=== PATIENT | female | born 1955 | race Caucasian/White ===

== ENCOUNTER → 2016-08-10 | Outpatient (CLI) | payer MEDICARE, OTHER ==
--- NOTE | 2016-08-10 13:49 | XR ---
Right hip HISTORY: Trauma and pain 2 views of the right hip correlated to previous exam October 2011, 30 Oct 2011 Postoperative changes are stable. No acute fracture or dislocation is evident. Old subcapital right f emoral fracture changes are again noted. IMPRESSION: No acute abnormalities evident.
== END | disposition home or self-care (01) ==
LOC: RADXRMAIN 12:00
PROVIDERS: ATTEND Internal Medicine
DX: M25.551 Pain in right hip (principal)
CPT/HCPCS: 73502

== ENCOUNTER → 2016-08-19 | Outpatient (CLI) | payer MEDICARE, OTHER ==
--- NOTE | 2016-08-19 18:55 | CT ---
EXAMINATION TYPE: CT brain wo con DATE OF EXAM: 08/19/2016 6:46 PM COMPARISON: NONE HISTORY: Head trauma years ago. Fall with right sided head injury 1 week ago. Headaches and double vision since. CT DLP: 926.50 mGycm Automated exposure control for dose reduction was used. FINDINGS: There is cerebral cortical atrophy. There is no mass effect nor midline shift. There is no sign of in tracranial hemorrhage. The calvarium is intact. IMPRESSION: Cerebral atrophy. No acute intracranial abnormality.
== END ==
LOC: RADCTMAIN 18:27
PROVIDERS: ATTEND Internal Medicine
DX: G31.9 Degenerative disease of nervous system, unspecified (principal)
CPT/HCPCS: 70450

== ENCOUNTER → 2016-08-25 | Outpatient (CLI) | payer MEDICARE, OTHER ==
--- NOTE | 2016-08-25 16:03 | XR ---
2 view abdomen HISTORY: Abdominal pain, pancreatic CCA 2 views of the abdomen correlated to prior abdomen 31 May 2012 Multiple air-fluid levels are present. Lung bases are clear. No evident pneumoperitoneum. Postop joe ges again noted to the lumbosacral spine and right hip. Vascular calcifications present within the pe lvis. IMPRESSION: Findings may represent ileus, follow-up as indicated should bowel obstruction be suspecte d clinically.
== END | disposition home or self-care (01) ==
LOC: RADXRMAIN 14:44
PROVIDERS: ATTEND Internal Medicine
DX: R10.9 Unspecified abdominal pain (principal)
CPT/HCPCS: 74020

== ENCOUNTER → 2016-09-05 | Outpatient (CLI) | payer MEDICARE, OTHER ==
--- NOTE | 2016-09-05 12:35 | CT ---
EXAMINATION TYPE: CT abdomen pelvis w con DATE OF EXAM: 09/05/2016 12:21 PM COMPARISON: 05/01/2014 HISTORY: Abdomen pain with distension. Histor of multiple bowel surgeries. CT DLP: 411.8 mGycm CONTRAST: CT scan of the abdomen and pelvis is performed with Oral Contrast and with IV Contrast, patient injec cherri with 100 mL of Omnipaque 300. FINDINGS: LUNG BASES-: No visible nodule. No infiltrate. LIVER/GB: No calcified gallstones. No space occupying hepatic lesion. Biliary tree is of normal ca liber. There is evidence of hepatic steatosis. PANCREAS: Atrophic pancreas with prominence of the pancreatic duct at 4.9 mm. No distinct lesion iden tified at this time. SPLEEN: No splenic enlargement. No lesion seen. ADRENALS: No nodule. No thickening. KIDNEYS/BLADDER: No hydronephrosis. No nephrolithiasis. No disctinct renal mass. Urinary bladder g rossly unremarkable. BOWEL: There is dilatation of the colon without definite transition zone. Moderate fecal stasis is no cherri. There is the suggestion of mildly increased focal wall thickening involving the mid transverse c olon seen on axial images 42. Underlying lesion is difficult to exclude. Consider direct visualizatio n. No acute inflammatory process. Small bowel is of normal caliber. GENITAL ORGANS: No gross abnormality. LYMPH NODES: No greater than 1cm abdominal or pelvic lymph nodes are appreciated. AORTA: No significant abnormality. OSSEOUS STRUCTURES: Degenerative changes lumbar spine and postoperative changes of the lumbar spine. OTHER: No significant additional abnormality is seen. IMPRESSION: 1. Moderate fecal stasis with the colonic ileus. 2. There is the suggestion of mildly increased focal wall thickening involving the mid transverse col on seen on axial images 42. Underlying lesion is difficult to exclude. Consider direct visualization.
== END | disposition home or self-care (01) ==
LOC: RADCTMAIN 11:41
PROVIDERS: ATTEND Internal Medicine
DX: K56.69 Other intestinal obstruction (principal); K59.8 Other specified functional intestinal disorders
CPT/HCPCS: 74177; Q9967

== ENCOUNTER → 2016-12-19 | Outpatient (CLI) | payer MEDICARE, OTHER ==
--- NOTE | 2016-12-19 12:00 | BD ---
EXAMINATION TYPE: MG DEXA axial skeleton. DATE OF EXAM: 12/19/2016 COMPARISON: 2014 CLINICAL HISTORY: osteoporosis Height: 5'1 Weight: 132 FRAX RISK QUESTIONS: Alcohol (3 or more units per day): no Family History (Parent hip fracture): no Glucocorticoids (More than 3mos): no (Ex: prednisone, prednisolone, methylprednisolone, dexamethasone, and hydrocortisone). History of Fracture in Adulthood: yes Secondary Osteoporosis: 1. Type 1 Diabetes: no 2. Hyperthyroidism: no 3. Menopause before 45: yes 4. Malnutrition: no 5. Chronic liver disease: no Rheumatoid Arthritis: no Current Tobacco Use: yes RISK FACTORS HISTORY OF: Hip Fracture (Right When: 2010 Surgery to Spine:1975 Hip(right/When: 2010 Family History of Osteoporosis: yes Active: no Postmenopausal woman: Frequent falls: Poor Health: bowel surgery 4 inches of bowel left multiple surgeries MEDICATIONS: : Additional Medications: see list Additional History: bowel cancer, 1987 EXAM MEASUREMENTS: Bone mineral densitometry was performed using the [employer] System. Bone mineral density about the L hip (g/cm2): 0.682 T Score values are as follows: -----L Neck: -2.6 -----L Total: -2.4 Bone mineral density has: Decreased -0.1% since study of: 12/16/2014 IMPRESSION: Osteoporosis (T Score less than -2.5) as noted by T Score values at theL hip There is increased fracture risk and therapy is usually indicated based on age. Re-Screen 1-2 years. NOTE: T-SCORE=SD OF THE YOUNG ADULT MEAN.
--- NOTE | 2016-12-20 08:44 | MM ---
Reason for exam: screening (asymptomatic). Last mammogram was performed 1 year ago. History: Patient is postmenopausal and has history of other cancer at age 30. Family history of breast cancer in aunt at age 60. Took estrogen for 12 years 1 month beginning at age 38. Physical Findings: A clinical breast exam by your physician is recommended on an annual basis and results should be correlated with mammographic findings. MG Screening Mammo w CAD Bilateral CC and MLO view(s) were taken. Prior study comparison: December 16, 2015, bilateral MG 3d diag mammo w/cad [facility]. December 16, 2014, bilateral MG screening mammo w CAD. September 18, 2012, bilateral digital screening mammo w/CAD. The breast tissue is heterogeneously dense. This may lower the sensitivity of mammography. No significant changes when compared with prior studies. ASSESSMENT: Negative, BI-RAD 1 RECOMMENDATION: Routine screening mammogram of both breasts in 1 year.
== END | disposition home or self-care (01) ==
LOC: RADMAMWWP 11:18
PROVIDERS: ATTEND Internal Medicine
DX: Z12.31 Encounter for screening mammogram for malignant neoplasm of breast (principal); M81.0 Age-related osteoporosis without current pathological fracture
CPT/HCPCS: 77080; G0202

== ENCOUNTER → 2017-11-03 | Outpatient (CLI) | payer MEDICARE, OTHER ==
--- NOTE | 2017-11-03 12:14 | XR ---
EXAMINATION TYPE: XR femur LT DATE OF EXAM: 11/03/2017 COMPARISON: NONE HISTORY: Pain post fall TECHNIQUE: 4 views submitted FINDINGS: Hypertrophic change of the patella noted with diffuse osteopenia. Arthropathy of the hip andrew int and knee joint. Osseous structures intact. IMPRESSION: No acute process
--- NOTE | 2017-11-03 12:15 | XR ---
EXAMINATION TYPE: XR tibia fibula LT DATE OF EXAM: 11/03/2017 COMPARISON: NONE HISTORY: Pain TECHNIQUE: Two views are submitted. FINDINGS: The osseous structures are intact. Arthropathy of the knee joint. IMPRESSION: 1. No acute osseous abnormality.
--- NOTE | 2017-11-03 12:15 | XR ---
EXAMINATION TYPE: XR knee limited LT DATE OF EXAM: 11/03/2017 COMPARISON: NONE HISTORY: Pain TECHNIQUE: Two views are submitted. FINDINGS: Diffuse osteopenia. Chondrocalcinosis with mild narrowing the joint space. Hypertrophic spurring invo lving the patella. Osseous structures are intact. No acute fracture seen. IMPRESSION: 1. No acute fracture or dislocation.
--- NOTE | 2017-11-03 12:16 | XR ---
EXAMINATION TYPE: XR ankle limited LT DATE OF EXAM: 11/03/2017 COMPARISON: NONE HISTORY: Pain FINDINGS: Two views of the ankle demonstrate the ankle mortise to be intact and symmetric. The joint spaces ar e preserved. The osseous structures are intact. Diffuse osteopenia noted. Calcaneal spurs seen. Art hropathy of the subtalar joint. IMPRESSION: 1. No definite acute fracture or dislocation, if symptoms persist follow-up study in 7 to 10 days wou ld be suggested.
--- NOTE | 2017-11-03 12:18 | XR ---
EXAMINATION TYPE: XR pelvis AP view DATE OF EXAM: 11/03/2017 COMPARISON: NONE HISTORY: Pain The osseous structures are intact and the joint spaces are preserved. No acute fracture is seen. Vi sualized bowel gas pattern is nonspecific. Postsurgical changes are seen. Arthropathy of the hip bud nts and diffuse osteopenia. Calcifications in the pelvis are likely vascular. Bony density involving the proximal left femur likely related to bone infarct. Hypertrophic and degenerative change of the l ower lumbar spine. SI joint arthropathy on the left. IMPRESSION: 1. No acute fracture.
== END | disposition home or self-care (01) ==
LOC: RADXRMAIN 11:15
PROVIDERS: ATTEND Internal Medicine Hematology & Oncology
DX: D60.9 Acquired pure red cell aplasia, unspecified (principal); J44.9 Chronic obstructive pulmonary disease, unspecified; F32.5 Major depressive disorder, single episode, in full remission; I67.89 Other cerebrovascular disease
CPT/HCPCS: 72170

== ENCOUNTER → 2018-01-23 | Outpatient (CLI) | payer MEDICARE, OTHER ==
[2018-01-23 15:27] LABS: Reticulocyte % 1.6 % (0.5-2.0)
[2018-01-23 15:41] LABS: Albumin 3.9 g/dL (3.5-5.0); Calcium 9.1 mg/dL (8.4-10.2); Potassium 3.2 mmol/L (3.5-5.1); Total Bilirubin 0.3 mg/dL (0.2-1.3); Total Protein 6.1 g/dL (6.3-8.2)
[2018-01-23 20:43] LABS: Iron Saturation 37.08 (12.00-45.00)
[2018-01-23 21:21] LABS: Protein, Total 6.2 g/dL (6.2-8.2)
[2018-01-24 11:33] LABS: Albumin 3.95 g/dL (3.80-4.90); Gamma Globulin 0.53 g/dL (0.70-1.50)
[2018-01-25 11:45] LABS: Methylmalonic Acid 0.61 umol/L (<0.40)
== END | disposition home or self-care (01) ==
LOC: LABWHC1 14:17
PROVIDERS: ATTEND Internal Medicine Hematology & Oncology
DX: D60.9 Acquired pure red cell aplasia, unspecified (principal); J44.9 Chronic obstructive pulmonary disease, unspecified; F32.5 Major depressive disorder, single episode, in full remission; I67.89 Other cerebrovascular disease
CPT/HCPCS: 36415; 80053; 82607; 82728; 82747; 83540; 83550; 83615; 83883; 83921; 84165; 84466; 85045; 85652; 86334

== ENCOUNTER → 2018-02-12 | Outpatient (CLI) | payer MEDICARE, OTHER ==
--- NOTE | 2018-02-12 15:14 | CT ---
EXAMINATION TYPE: CT brain wo con DATE OF EXAM: 02/12/2018 COMPARISON: 05/24/2017 INDICATION: Patient complains of headache post trauma. DLP: 804.7 mGycm, Automated exposure control for dose reduction was used. CONTRAST: None CT of the brain is performed utilizing 3 mm thick sections through the posterior fossa and 3 mm thick sections through the remaining calvarium. Study is performed within 24 hours of arrival to the hosp ital. No abnormal hyperdensity is present to suggest an acute intracranial hemorrhage. No mass lesion is evident. No acute infarcts are evident. Periventricular white matter hypodensity is present, likely on the bas is of white matter ischemic changes. Ventricles and sulci are prominent for the patient age. Paranasal sinuses and mastoid air cells within the [id number]-iy-ejaw are clear. IMPRESSIONS: 1. Atrophy with periventricular white matter ischemic changes.
== END | disposition home or self-care (01) ==
LOC: RADCTMAIN 14:29
PROVIDERS: ATTEND Internal Medicine
DX: I67.82 Cerebral ischemia (principal); G31.9 Degenerative disease of nervous system, unspecified
CPT/HCPCS: 70450

== ENCOUNTER 2018-02-15 06:47 | Emergency (ER) | payer MEDICARE, OTHER ==
[2018-02-15 06:56] VITALS: BP 122/55; PULSE 68; RESP 17; TEMP 98
--- NOTE | 2018-02-15 07:23 | ED ---
General Adult HPI - General Chief complaint: Animal Bite Stated complaint: cat bite Time Seen by Provider: 02/15/18 07:00 Source: patient, RN notes reviewed Mode of arrival: ambulatory Limitations: no limitations - History of Present Illness Initial comments: This is a 62-year-old female who presents emergency Department with a bite to the lower right leg from a cat last evening. Patient is able to get of the catheter she is watching the. Patient also signed out appropriate paperwork for Bite. Patient states she also got scratched in the left lower leg and left arm shows a superficial scratches and no bites. Patient states she has been fitted before. Patient denies any redness or swelling in any of the areas. - Related Data Home Medications Medication Instructions Recorded Confirmed ALPRAZolam [Xanax] 1 mg PO BID 04/14/15 05/24/17 Carisoprodol [Soma] 350 mg PO Q12H 04/14/15 05/24/17 Diphenoxylate HCl/Atropine 1 tab PO Q6H PRN 04/14/15 05/24/17 [Lomotil] Gabapentin [Neurontin] 300 mg PO TID 04/14/15 05/24/17 QUEtiapine [SEROquel] 50 mg PO HS 04/14/15 05/24/17 DULoxetine HCL [Cymbalta] 60 mg PO DAILY 05/24/17 05/24/17 Ergocalciferol [Vitamin D2 50,000 unit PO Q7D 05/24/17 05/24/17 (DRISDOL)] Esomeprazole Magnesium [NexIUM] 20 mg PO DAILY 05/24/17 05/24/17 Ferrous Sulfate [Iron (65 MG 325 mg PO DAILY 05/24/17 05/24/17 Elemental)] Folic Acid 1 mg PO DAILY 05/24/17 05/24/17 Magnesium Oxide [Mag-Ox] 400 mg PO BID 05/24/17 05/24/17 Ondansetron HCl [Zofran] 4 mg PO TID PRN 05/24/17 05/24/17 Previous Rx's Medication Instructions Recorded Fluticasone/Salmeterol [Advair 1 inhalation PO BID #1 inhaler 05/27/17 250-50 Diskus] HYDROmorphone [Dilaudid] 1 mg PO Q8H PRN #0 05/27/17 Ipratropium-Albuterol Nebulize 3 ml INHALATION Q6HR #120 neb 05/27/17 [Duoneb 0.5 mg-3 mg/3 ml Soln] Levofloxacin [Levaquin] 500 mg PO Q24H #3 tab 05/27/17 Nicotine 21Mg/24Hr Patch [Habitrol] 1 patch TRANSDERM DAILY #30 patch 05/27/17 Sodium Bicarbonate Tab 650 mg PO BID #60 tab 05/27/17 predniSONE 10 mg PO DAILY #51 tab 05/27/17 Ciprofloxacin HCl [Cipro] 500 mg PO Q12HR #20 tablet 02/15/18 Clindamycin HCl 300 mg PO Q8H 10 Days cap 02/15/18 Allergies Allergy/AdvReac Type Severity Reaction Status Date / Time aspirin Allergy Unknown Verified 05/24/17 23:11 divalproex sodium Allergy Unknown Verified 05/24/17 23:11 [From Depakote] erythromycin base Allergy Unknown Verified 05/24/17 23:11 Penicillins Allergy Unknown Verified 05/24/17 23:11 Sulfa (Sulfonamide Allergy Unknown Verified 05/24/17 23:11 Antibiotics) Review of Systems ROS Statement: Those systems with pertinent positive or pertinent negative responses have been documented in the HPI. ROS Other: All systems not noted in ROS Statement are negative. Past Medical History Past Medical History: CVA/TIA, Fibromyalgia Additional Past Medical History / Comment(s): Lupus, TIA, right hand tendons severed, closed head injury, multiple sclerosis History of Any Multi-Drug Resistant Organisms: None Reported Past Surgical History: Appendectomy, Back Surgery, Section, Orthopedic Surgery Additional Past Surgical History / Comment(s): stomach cancer Past Anesthesia/Blood Transfusion Reactions: No Reported Reaction Past Psychological History: No Psychological Hx Reported Smoking Status: Current every day smoker Past Alcohol Use History: None Reported Past Drug Use History: None Reported General Exam - General Exam Comments Initial Comments: GENERAL: Patient is well-developed and well-nourished. Patient is nontoxic and well- hydrated and is in mild distress. ENT: Neck is soft and supple. No significant lymphadenopathy is noted. Oropharynx is clear. Moist mucous membranes. Neck has full range of motion without eliciting any pain. EYES: The sclera were anicteric and conjunctiva were pink and moist. Extraocular movements were intact and pupils were equal round and reactive to light. Eyelids were unremarkable. PULMONARY: Unlabored respirations. Good breath sounds bilaterally. No audible rales rhonchi or wheezing was noted. CARDIOVASCULAR: There is a regular rate and rhythm without any murmurs gallops or rubs. ABDOMEN: Soft and nontender with normal bowel sounds. SKIN: There are 3 lacerations to the lower right leg one measuring about 1.5 cm one measuring 1 cm and the third one measuring 1 cm. There are superficial abrasions to the left lower leg and left forearm none are puncture wounds. NEUROLOGIC: Patient is alert and oriented x3. Cranial nerves II through XII are grossly intact. Motor and sensory are also intact. Normal speech, volume and content. Symmetrical smile. MUSCULOSKELETAL: Normal extremities with adequate strength and full range of motion. No lower extremity swelling or edema. No calf tenderness. LYMPHATICS: No significant lymphadenopathy is noted PSYCHIATRIC: Normal psychiatric evaluation. Limitations: no limitations Course Vital Signs 02/15/18 06:49 Temperature 98.0 F Pulse Rate 68 Respiratory 17 Rate Blood Pressure 122/55 O2 Sat by Pulse 100 Oximetry Disposition Clinical Impression: Cat bite Disposition: HOME SELF-CARE Condition: Good Instructions: Animal Bite (ED) Prescriptions: Ciprofloxacin HCl [Cipro] 500 mg PO Q12HR #20 tablet Clindamycin HCl 300 mg PO Q8H 10 Days cap Is patient prescribed a controlled substance at d/c from ED?: No Referrals: Meseret Haq MD [Primary Care Provider] - 1-2 days Time of Disposition: 07:22
[2018-02-15] MEDS ORDERED: DIPH,PERTUS(ACELL)TETVAC-LF 0.5 ML VIAL IM ONE (07:29)
== END 2018-02-15 07:54 | disposition home or self-care (01) ==
LOC: EC 06:47
DX: S81.811A Laceration without foreign body, right lower leg, initial encounter (principal); S40.812A Abrasion of left upper arm, initial encounter; S80.812A Abrasion, left lower leg, initial encounter; M79.7 Fibromyalgia; F17.200 Nicotine dependence, unspecified, uncomplicated; Z86.73 Personal history of transient ischemic attack (TIA), and cerebral infarction without residual deficits; Z85.028 Personal history of other malignant neoplasm of stomach; Z79.899 Other long term (current) drug therapy; Z88.6 Allergy status to analgesic agent; Z88.8 Allergy status to other drugs, medicaments and biological substances; Z88.1 Allergy status to other antibiotic agents; Z88.0 Allergy status to penicillin; Z88.2 Allergy status to sulfonamides; Z23 Encounter for immunization; W55.01XA Bitten by cat, initial encounter
CPT/HCPCS: 90471; 90715; 99283

== ENCOUNTER 2018-02-25 18:07 | Emergency (ER) | payer MEDICARE, OTHER ==
[2018-02-25 18:16] VITALS: PULSE 70; RESP 16
--- NOTE | 2018-02-25 18:37 | ED ---
Skin/Abscess/FB HPI - General Chief complaint: Skin/Abscess/Foreign Body Stated complaint: Cat bite Time Seen by Provider: 02/25/18 18:19 Source: patient Mode of arrival: ambulatory Limitations: no limitations - History of Present Illness Initial comments: 62-year-old female patient presents to the emergency department today for evaluation of wounds to her left lower leg. Patient states that around 11 days ago she was attacked by her neighbor's cat. States that she was seen and evaluated here and given prescriptions for Cipro and clindamycin. Patient states that she finished her antibiotics this morning however which took her dressing off the wounds seem to be more red and she was having increased swelling to her leg. Patient denies any fevers or chills. Denies any drainage from the wounds. States that she has had some nausea and has vomited throughout the course of the antibiotics. She denies any dizziness or weakness. She denies any chest pain or shortness of breath. Patient denies any recent rash, abdominal pain, diarrhea, constipation, back pain, numbness, tingling, dizziness , weakness, hematuria, dysuria, urinary urgency, urinary frequency, headache, visual changes, or any other complaints. - Related Data Home Medications Medication Instructions Recorded Confirmed ALPRAZolam [Xanax] 1 mg PO BID 04/14/15 05/24/17 Carisoprodol [Soma] 350 mg PO Q12H 04/14/15 05/24/17 Diphenoxylate HCl/Atropine 1 tab PO Q6H PRN 04/14/15 05/24/17 [Lomotil] Gabapentin [Neurontin] 300 mg PO TID 04/14/15 05/24/17 QUEtiapine [SEROquel] 50 mg PO HS 04/14/15 05/24/17 DULoxetine HCL [Cymbalta] 60 mg PO DAILY 05/24/17 05/24/17 Ergocalciferol [Vitamin D2 50,000 unit PO Q7D 05/24/17 05/24/17 (DRISDOL)] Esomeprazole Magnesium [NexIUM] 20 mg PO DAILY 05/24/17 05/24/17 Ferrous Sulfate [Iron (65 MG 325 mg PO DAILY 05/24/17 05/24/17 Elemental)] Folic Acid 1 mg PO DAILY 05/24/17 05/24/17 Magnesium Oxide [Mag-Ox] 400 mg PO BID 05/24/17 05/24/17 Ondansetron HCl [Zofran] 4 mg PO TID PRN 05/24/17 05/24/17 Previous Rx's Medication Instructions Recorded Fluticasone/Salmeterol [Advair 1 inhalation PO BID #1 inhaler 05/27/17 250-50 Diskus] HYDROmorphone [Dilaudid] 1 mg PO Q8H PRN #0 05/27/17 Ipratropium-Albuterol Nebulize 3 ml INHALATION Q6HR #120 neb 05/27/17 [Duoneb 0.5 mg-3 mg/3 ml Soln] Levofloxacin [Levaquin] 500 mg PO Q24H #3 tab 05/27/17 Nicotine 21Mg/24Hr Patch [Habitrol] 1 patch TRANSDERM DAILY #30 patch 05/27/17 Sodium Bicarbonate Tab 650 mg PO BID #60 tab 05/27/17 predniSONE 10 mg PO DAILY #51 tab 05/27/17 Ciprofloxacin HCl [Cipro] 500 mg PO Q12HR #20 tablet 02/15/18 Clindamycin HCl 300 mg PO Q8H 10 Days cap 02/15/18 Calcium Carbonate/Vitamin D3 1 each PO DAILY #30 tablet 02/25/18 [Calcium 500-Vit D3 600 Tablet] Allergies Allergy/AdvReac Type Severity Reaction Status Date / Time aspirin Allergy Unknown Verified 02/25/18 18:16 divalproex sodium Allergy Unknown Verified 02/25/18 18:16 [From Depakote] erythromycin base Allergy Unknown Verified 02/25/18 18:16 Penicillins Allergy Unknown Verified 02/25/18 18:16 Sulfa (Sulfonamide Allergy Unknown Verified 02/25/18 18:16 Antibiotics) Review of Systems ROS Statement: Those systems with pertinent positive or pertinent negative responses have been documented in the HPI. ROS Other: All systems not noted in ROS Statement are negative. Past Medical History Past Medical History: CVA/TIA, Fibromyalgia Additional Past Medical History / Comment(s): Lupus, TIA, right hand tendons severed, closed head injury, multiple sclerosis History of Any Multi-Drug Resistant Organisms: None Reported Past Surgical History: Appendectomy, Back Surgery, Section, Orthopedic Surgery Additional Past Surgical History / Comment(s): stomach cancer Past Anesthesia/Blood Transfusion Reactions: No Reported Reaction Past Psychological History: No Psychological Hx Reported Smoking Status: Current every day smoker Past Alcohol Use History: None Reported Past Drug Use History: None Reported General Exam Limitations: no limitations General appearance: alert, in no apparent distress, other (This is a well- developed, well-nourished adult female patient in no acute distress. Vital signs upon presentation are temperature 98.5F, pulse 70, respiration 16, blood pressure 111/59, pulse ox 98% on room air.) Eye exam: Present: normal appearance, PERRL, EOMI. Absent: scleral icterus, conjunctival injection, periorbital swelling ENT exam: Present: normal exam, normal oropharynx, mucous membranes moist Respiratory exam: Present: normal lung sounds bilaterally. Absent: respiratory distress, wheezes, rales, rhonchi, stridor Cardiovascular Exam: Present: regular rate, normal rhythm, normal heart sounds. Absent: systolic murmur, diastolic murmur, rubs, gallop, clicks GI/Abdominal exam: Present: soft, normal bowel sounds. Absent: distended, tenderness, guarding, rebound, rigid Neurological exam: Present: alert, oriented X3, CN II-XII intact Course Vital Signs 02/25/18 02/25/18 18:14 19:29 Temperature 98.5 F 97.8 F Pulse Rate 70 Respiratory 16 16 Rate Blood Pressure 111/59 129/58 O2 Sat by Pulse 98 Oximetry Medical Decision Making - Medical Decision Making 62-year-old female patient presents to emergency department today for reevaluation of wounds to her left lower leg. Wounds were inflicted by a cat approximately 11 days ago. Physical examination did reveal bilateral lower extremity swelling worse on the left. There is 2+ pitting edema to the left lower leg and ankle. There is no evidence of cellulitis and wounds did not appear to be infected, there is no evidence of purulent drainage. Labs reviewed and did reveal an elevated creatinine at 2.50. Patient's calcium is critical at 5.9 ingested to 5.98 for hypoalbuminemia. I did discuss findings and results with the patient. Did recommend admission for acute on chronic renal failure and hypocalcemia. Patient refused admission and did agree to sign AMA form. I did discuss risks of leaving including worsening renal failure , arrhythmias related to hypocalcemia, , and permanent disability. I did give her prescription for calcium and vitamin D. She is instructed to follow- up with her primary care physician for recheck as soon as possible for repeat creatinine and calcium levels. Patient did end up leaving prior to receiving discharge instructions, prescription, and signing the form. I did call her on the phone and again informed her of the risks of hypocalcemia and informed her that she has a prescription waiting for her here, she verbalized understanding and stated she would pick the prescription up tomorrow. - Lab Data Result diagrams: 02/25/18 18:58 02/25/18 18:58 Lab Results 02/25/18 02/25/18 02/25/18 Range/Units 18:58 18:58 18:58 WBC 5.8 (3.8-10.6) k/uL RBC 2.45 L (3.80-5.40) m/uL Hgb 7.6 L (11.4-16.0) gm/dL Hct 24.5 L (34.0-46.0) % MCV 100.0 (80.0-100.0) fL MCH 31.2 (25.0-35.0) pg MCHC 31.2 (31.0-37.0) g/dL RDW 14.8 (11.5-15.5) % Plt Count 263 (150-450) k/uL Neutrophils % 66 % Lymphocytes % 25 % Monocytes % 6 % Eosinophils % 2 % Basophils % 0 % Neutrophils # 3.8 (1.3-7.7) k/uL Lymphocytes # 1.4 (1.0-4.8) k/uL Monocytes # 0.3 (0-1.0) k/uL Eosinophils # 0.1 (0-0.7) k/uL Basophils # 0.0 (0-0.2) k/uL Hypochromasia Moderate Macrocytosis Slight Sodium 138 (137-145) mmol/L Potassium 3.8 (3.5-5.1) mmol/L Chloride 114 H (98-107) mmol/L Carbon Dioxide 11 L (22-30) mmol/L Anion Gap 13 mmol/L BUN 12 (7-17) mg/dL Creatinine 2.70 H (0.52-1.04) mg/dL Est GFR (CKD-EPI)AfAm 21 (>60 ml/min/1.73 sqM) Est GFR (CKD-EPI)NonAf 18 (>60 ml/min/1.73 sqM) Glucose 91 (74-99) mg/dL Calcium 5.9 L* (8.4-10.2) mg/dL Total Bilirubin 0.5 (0.2-1.3) mg/dL AST 20 (14-36) U/L ALT 13 (9-52) U/L Alkaline Phosphatase 47 (38-126) U/L NT-Pro-B Natriuret Pep 802 pg/mL Total Protein 5.9 L (6.3-8.2) g/dL Albumin 3.4 L (3.5-5.0) g/dL Disposition Clinical Impression: Cat bite involving extremity, Acute renal failure, Hypocalcemia Disposition: Left Against Medical Advice Condition: Serious Instructions: Acute Kidney Injury (DC), Acute Wound Care (ED), Hypocalcemia (ED ) Additional Instructions: Follow-up with your primary care physician as soon as possible for recheck of your creatinine and calcium levels. Return here immediately for any new, worsening, or concerning symptoms. Prescriptions: Calcium Carbonate/Vitamin D3 [Calcium 500-Vit D3 600 Tablet] 1 each PO DAILY # 30 tablet Is patient prescribed a controlled substance at d/c from ED?: No Referrals: Meseret Haq MD [Primary Care Provider] - 1-2 days Time of Disposition: 20:46
[2018-02-25 19:21] LABS: Basophils % (A) 0 %; Eosinophils # (A) 0.1 k/uL (0-0.7); Eosinophils % (A) 2 %; HCT 24.5 % (34.0-46.0); HGB 7.6 gm/dL (11.4-16.0); Hypochromasia Moderate; Lymphocytes # (A) 1.4 k/uL (1.0-4.8); Lymphocytes % (A) 25 %; MCH 31.2 pg (25.0-35.0); MCHC 31.2 g/dL (31.0-37.0); Macrocytosis Slight; Mean Platelet Volume 7.2; Monocytes # (A) 0.3 k/uL (0-1.0); Monocytes % (A) 6 %; Neutrophils # (A) 3.8 k/uL (1.3-7.7); Neutrophils % (A) 66 %; Platelet Count 263 k/uL (150-450); RBC 2.45 m/uL (3.80-5.40); RDW 14.8 % (11.5-15.5); WBC 5.8 k/uL (3.8-10.6)
[2018-02-25 19:27] LABS: Albumin 3.4 g/dL (3.5-5.0); Total Bilirubin 0.5 mg/dL (0.2-1.3); Total Protein 5.9 g/dL (6.3-8.2)
[2018-02-25 19:31] VITALS: BP 129/58; TEMP 97.8
[2018-02-25 19:32] LABS: Calcium 5.9 mg/dL (8.4-10.2); Potassium 3.8 mmol/L (3.5-5.1)
== END 2018-02-25 21:06 | disposition left against medical advice (07) ==
LOC: EC 18:07
DX: S81.852A Open bite, left lower leg, initial encounter (principal); N17.9 Acute kidney failure, unspecified; E83.51 Hypocalcemia; G35 Multiple sclerosis; M79.7 Fibromyalgia; F17.200 Nicotine dependence, unspecified, uncomplicated; Z86.73 Personal history of transient ischemic attack (TIA), and cerebral infarction without residual deficits; Z85.028 Personal history of other malignant neoplasm of stomach; Z90.49 Acquired absence of other specified parts of digestive tract; Z98.890 Other specified postprocedural states; Z79.899 Other long term (current) drug therapy; Z88.0 Allergy status to penicillin; Z88.1 Allergy status to other antibiotic agents; Z88.2 Allergy status to sulfonamides; Z88.6 Allergy status to analgesic agent; Z88.8 Allergy status to other drugs, medicaments and biological substances; W55.01XA Bitten by cat, initial encounter
CPT/HCPCS: 36415; 80053; 83880; 85025; 87040; 99283

== ENCOUNTER 2018-02-27 14:17 | Inpatient (IN) | payer MEDICARE, OTHER ==
--- NOTE | 2018-02-27 16:01 | ED ---
General Adult HPI <Josh Quinteros - Last Filed: 02/27/18 20:59> - General Source: patient, RN notes reviewed Mode of arrival: ambulatory Limitations: no limitations <Russell Perez - Last Filed: 02/27/18 21:18> - General Chief complaint: Recheck/Abnormal Lab/Rx Stated complaint: abnormal labs-sent by /revisit Time Seen by Provider: 02/27/18 15:29 - History of Present Illness Initial comments: 62-year-old female presents to the emergency department for a chief complaint of abnormal labs. Patient was put on clindamycin and ciprofloxacin about 1.5 weeks ago for cat bites. Patient returned to the emergency department 2 days ago because she thought there was increased redness around the bites and lab work was done at that time. Patient states that today the area is looking significantly improved. She states redness has decreased significantly. She denies fevers or chills at home. However at her last emergency department visit labs revealed an elevated creatinine of 2.50 and a critical low calcium of 5.9. At that time patient refused admission and signed AMA form. Patient denies any complaints at this time. Patient has no other complaints at this time including shortness of breath, chest pain, abdominal pain, nausea or vomiting, headache, or visual changes. (Russell Perez) - Related Data Home Medications Medication Instructions Recorded Confirmed Carisoprodol [Soma] 350 mg PO HS 04/14/15 02/27/18 Diphenoxylate HCl/Atropine 1 tab PO TID 04/14/15 02/27/18 [Lomotil] Gabapentin [Neurontin] 300 mg PO TID 04/14/15 02/27/18 QUEtiapine [SEROquel] 50 mg PO HS 04/14/15 02/27/18 DULoxetine HCL [Cymbalta] 60 mg PO DAILY 05/24/17 02/27/18 Ergocalciferol [Vitamin D2 50,000 unit PO MO 05/24/17 02/27/18 (DRISDOL)] Esomeprazole Magnesium [NexIUM] 20 mg PO DAILY 05/24/17 02/27/18 Folic Acid 1 mg PO DAILY 05/24/17 02/27/18 Magnesium Oxide [Mag-Ox] 400 mg PO BID 05/24/17 02/27/18 ALPRAZolam [Xanax] 0.25 mg PO BID PRN 02/27/18 02/27/18 Carisoprodol [Soma] 350 mg PO HS 02/27/18 02/27/18 Ibuprofen [Advil] 200 mg PO Q6HR PRN 02/27/18 02/27/18 Potassium Chloride ER [K-Dur 20] 40 meq PO BID 02/27/18 02/27/18 Tobra-Dexamet 0.3-0.1% Eye Vani 2 drops BOTH EYES Q6H 02/27/18 02/27/18 [Tobradex Ophth Susp] traZODone HCL 150 mg PO HS 02/27/18 02/27/18 Allergies Allergy/AdvReac Type Severity Reaction Status Date / Time aspirin Allergy Unknown Verified 02/27/18 16:13 divalproex sodium Allergy Unknown Verified 02/27/18 16:13 [From Depakote] erythromycin base Allergy Unknown Verified 02/27/18 16:13 Penicillins Allergy Unknown Verified 02/27/18 16:13 Sulfa (Sulfonamide Allergy Unknown Verified 02/27/18 16:13 Antibiotics) Review of Systems ROS Other: All systems not noted in ROS Statement are negative. <Josh Quinteros - Last Filed: 02/27/18 20:59> ROS Other: All systems not noted in ROS Statement are negative. <Russell Perez P - Last Filed: 02/27/18 21:18> ROS Statement: Those systems with pertinent positive or pertinent negative responses have been documented in the HPI. Past Medical History Past Medical History: CVA/TIA, Fibromyalgia Additional Past Medical History / Comment(s): Lupus, TIA, right hand tendons severed, closed head injury, multiple sclerosis History of Any Multi-Drug Resistant Organisms: None Reported Past Surgical History: Appendectomy, Back Surgery, Section, Orthopedic Surgery Additional Past Surgical History / Comment(s): stomach cancer Past Anesthesia/Blood Transfusion Reactions: No Reported Reaction Past Psychological History: No Psychological Hx Reported Smoking Status: Current every day smoker Past Alcohol Use History: None Reported Past Drug Use History: None Reported <Russell Perez P - Last Filed: 02/27/18 21:18> General Exam Limitations: no limitations General appearance: alert (Patient is alert and oriented. She is pleasant and communicative.), in no apparent distress Head exam: Present: atraumatic, normocephalic, normal inspection Eye exam: Present: normal appearance, PERRL, EOMI. Absent: scleral icterus, conjunctival injection, periorbital swelling ENT exam: Present: normal exam, mucous membranes moist Neck exam: Present: normal inspection, full ROM. Absent: tenderness, meningismus, lymphadenopathy Respiratory exam: Present: normal lung sounds bilaterally. Absent: respiratory distress, wheezes, rales, rhonchi, stridor Cardiovascular Exam: Present: regular rate, normal rhythm, normal heart sounds. Absent: systolic murmur, diastolic murmur, rubs, gallop, clicks GI/Abdominal exam: Present: soft, normal bowel sounds. Absent: distended, tenderness, guarding, rebound, rigid Extremities exam: Present: full ROM (Full range of motion of left lower extremity), normal capillary refill (Capillary refill less than 2 seconds in the left lower extremity), other (Patient has healing wounds of the left lower leg. No evidence of acute infection. No evidence of a cellulitis.). Absent: pedal edema, joint swelling Neurological exam: Present: alert, oriented X3, CN II-XII intact Psychiatric exam: Present: normal affect, normal mood Skin exam: Present: warm, dry, intact, normal color. Absent: rash <Russell Perez P - Last Filed: 02/27/18 21:18> Vital Signs 02/27/18 02/27/18 02/27/18 14:26 19:19 19:25 Temperature 98.8 F 97.1 F L 97.9 F Pulse Rate 70 67 Pulse Rate [ 68 Pulse Oximetery ] Respiratory 20 16 18 Rate Blood Pressure 105/60 139/71 Blood Pressure 129/72 [Left Arm] O2 Sat by Pulse 99 100 99 Oximetry 02/27/18 20:55 Temperature 97.9 F Pulse Rate 63 Pulse Rate [ Pulse Oximetery ] Respiratory 16 Rate Blood Pressure 133/70 Blood Pressure [Left Arm] O2 Sat by Pulse 97 Oximetry EKG Findings - EKG Comments: EKG Findings:: EKG shows a normal sinus rhythm with a ventricular rate of 65, MO interval 186, QRS duration 98 <Russell Perez P - Last Filed: 02/27/18 21:18> Procedures - Central Line Placement Right IJ Consent Obtained: verbal consent Time Out Performed: Yes Patient Placed on Monitor/Pulse Ox: Yes MD Prep: mask, gown, gloves Central Line Prep: Chlorhexidine scrub Local Anesthesia Used: Lidocaine 1% Amount of Anesthesia Used (mls): 5 Ultrasound Used for Placement: Yes Central Line Lumen Inserted: triple Bloods Obtained for Lab: Yes Central Line Position: good blood return, all ports aspirated, flushed, capped, sutured in place with 3-0 nylon Dressing Applied: Tegaderm Post Procedure X-Ray: tip of catheter in good position Patient Tolerated Procedure: well Complications: none <Josh Quinteros - Last Filed: 02/27/18 20:59> Medical Decision Making - Lab Data Result diagrams: 02/27/18 16:20 02/27/18 16:20 <Josh Quinteros - Last Filed: 02/27/18 20:59> - Lab Data Result diagrams: 02/27/18 16:20 02/27/18 16:20 - EKG Data -: EKG Interpreted by Me (and DR Quinteros) EKG shows normal: sinus rhythm Rate: normal When compared to previous EKG there are: no significant change <Russell Perez - Last Filed: 02/27/18 21:18> - Medical Decision Making I, Carloz Quinteros, personally saw and examined the patient. I have reviewed and agree with the PA findings, including all diagnostic interpretations and treatment plans as written unless otherwise stated. I was present for the patterson portions of any procedures performed and the inclusive time noted for any critical care statement. (Josh Quinteros) 62-year-old female presents to the emergency department for a chief complaint of abnormal labs. Lab work was done about 2 days ago and patient was hypocalcemic. Patient denies any chest pain, shortness of breath, abdominal pain. Patient's hemoglobin was 7.1 which was decreased from 7.60 3 days ago. In May hemoglobin was 8.0 so is relatively stable. CMP shows a potassium of 2.8, patient given oral and IV potassium. Calcium 6.3, patient given IV calcium. Magnesium found to be less than 0.4 and patient was given for IV bags of magnesium sulfate. Creatinine 1.9 which is decreased from 2.70 2 days ago. Patient has a central line placed by Dr. Quinteros because peripheral lines were unsuccessful. EKG showed a normal sinus rhythm with a ventricular rate of 65. Patient's EKG was compared to previous EKG and findings were reproduced. Patient will be admitted to the hospital for hypocalcemia as well as hypokalemia. (Russell Perez) - Lab Data Lab Results 02/27/18 02/27/18 02/27/18 Range/Units 16:20 16:20 17:30 WBC 6.0 (3.8-10.6) k/uL RBC 2.30 L (3.80-5.40) m/uL Hgb 7.1 L (11.4-16.0) gm/dL Hct 22.3 L (34.0-46.0) % MCV 97.0 (80.0-100.0) fL MCH 31.0 (25.0-35.0) pg MCHC 31.9 (31.0-37.0) g/dL RDW 14.6 (11.5-15.5) % Plt Count 260 (150-450) k/uL Neutrophils % 66 % Lymphocytes % 27 % Monocytes % 4 % Eosinophils % 1 % Basophils % 0 % Neutrophils # 3.9 (1.3-7.7) k/uL Lymphocytes # 1.6 (1.0-4.8) k/uL Monocytes # 0.3 (0-1.0) k/uL Eosinophils # 0.1 (0-0.7) k/uL Basophils # 0.0 (0-0.2) k/uL Hypochromasia Slight Sodium 139 (137-145) mmol/L Potassium 2.8 L* (3.5-5.1) mmol/L Chloride 117 H (98-107) mmol/L Carbon Dioxide 12 L (22-30) mmol/L Anion Gap 10 mmol/L BUN 10 (7-17) mg/dL Creatinine 1.90 H (0.52-1.04) mg/dL Est GFR (CKD-EPI)AfAm 32 (>60 ml/min/1.73 sqM) Est GFR (CKD-EPI)NonAf 28 (>60 ml/min/1.73 sqM) Glucose 91 (74-99) mg/dL Calcium 6.3 L* (8.4-10.2) mg/dL Magnesium <0.4 L* (1.6-2.3) mg/dL Total Bilirubin 0.3 (0.2-1.3) mg/dL AST 12 L (14-36) U/L ALT 20 (9-52) U/L Alkaline Phosphatase 50 (38-126) U/L Total Protein 5.5 L (6.3-8.2) g/dL Albumin 3.2 L (3.5-5.0) g/dL Disposition <Josh Quinteros - Last Filed: 02/27/18 20:59> Is patient prescribed a controlled substance at d/c from ED?: No Time of Disposition: 17:53 <Russell Perez - Last Filed: 02/27/18 21:18> Clinical Impression: Hypokalemia, Hypocalcemia Disposition: ADMITTED IP TO THIS HOSP Condition: Good
[2018-02-27 16:39] LABS: Basophils % (A) 0 %; Eosinophils # (A) 0.1 k/uL (0-0.7); Eosinophils % (A) 1 %; HCT 22.3 % (34.0-46.0); HGB 7.1 gm/dL (11.4-16.0); Hypochromasia Slight; Lymphocytes # (A) 1.6 k/uL (1.0-4.8); Lymphocytes % (A) 27 %; MCHC 31.9 g/dL (31.0-37.0); Monocytes # (A) 0.3 k/uL (0-1.0); Monocytes % (A) 4 %; Neutrophils # (A) 3.9 k/uL (1.3-7.7); Neutrophils % (A) 66 %; Platelet Count 260 k/uL (150-450); RDW 14.6 % (11.5-15.5)
[2018-02-27 16:53] LABS: Albumin 3.2 g/dL (3.5-5.0); Total Bilirubin 0.3 mg/dL (0.2-1.3); Total Protein 5.5 g/dL (6.3-8.2)
[2018-02-27 17:17] LABS: Calcium 6.3 mg/dL (8.4-10.2); Potassium 2.8 mmol/L (3.5-5.1)
[2018-02-27] MEDS ORDERED: CALCIUM CHLORIDE 100 MG/ML 10 ML SYRINGE IVP STA (17:28)
[2018-02-27] MEDS ORDERED: POTASSIUM CHLORIDE 20 MEQ in WATER FOR INJECTION 1 100ML.BAG IVPB STA (17:28)
[2018-02-27] MEDS ORDERED: POTASSIUM CHLORIDE ER 20 MEQ TAB.ER PO STA (17:29)
[2018-02-27] MEDS ORDERED: NALOXONE 0.4 MG/ML 1 ML VIAL IV PRN (17:54)
[2018-02-27] MEDS ORDERED: ACETAMINOPHEN TAB 325 MG TAB PO PRN (17:54)
[2018-02-27] MEDS: MAGNESIUM SULFATE-D5W PMX 1 GM in DEXTROSE/WATER 1 100ML.BAG IVPB SCH ×3 (20:33→23:32)
[2018-02-27] MEDS: SODIUM CHLORIDE 0.9% 1,000 ML IV SCH (20:34)
--- NOTE | 2018-02-27 20:52 | XR ---
EXAMINATION: XR chest 1V portable DATE AND TIME: 02/27/2018 8:34 PM CLINICAL INDICATION: central line TECHNIQUE: AP upright portable COMPARISON: 05/26/2017 FINDINGS: Right IJ central line tip superimposing the expected position of the caval atrial junction. There is no pneumothorax. The lungs are clear. The pleural spaces are negative. The cardiac silhouette is not enlarged. The remainder of the mediastinal silhouette is unremarkable. The skeletal structures and soft tissues are negative for acute findings. IMPRESSION: NO ACUTE PROCESS.
[2018-02-27 21:01] VITALS: BMI 21.9
[2018-02-27] MEDS: MAGNESIUM OXIDE 400 MG TAB PO SCH (21:44)
[2018-02-27] MEDS: POTASSIUM CHLORIDE ER 20 MEQ TAB.ER PO SCH (21:45)
[2018-02-27] MEDS: GABAPENTIN 300 MG CAP PO SCH (21:45)
[2018-02-27] MEDS: traZODone HCL 50 MG TAB PO SCH (21:45)
[2018-02-27] MEDS: QUEtiapine 50 MG TAB PO SCH (21:45)
[2018-02-27] MEDS ORDERED: DIPHENOX-ATROP 2.5-0.025 MG 1 EACH TAB PO PRN (21:47)
[2018-02-27] MEDS: CARISOPRODOL 350 MG TAB PO SCH (21:51)
[2018-02-27] MEDS: TOBRA-DEXAMET 0.3-0.1% OPHTH DROPS 2.5 ML BTL BOTH EYES SCH (21:51)
[2018-02-27] MEDS: ALPRAZolam 0.25 MG TAB PO PRN (21:52)
[2018-02-27] MEDS: HYDROcodone/APAP 5-325MG 1 EACH TAB PO PRN (22:08)
[2018-02-28] MEDS: MAGNESIUM SULFATE-D5W PMX 1 GM in DEXTROSE/WATER 1 100ML.BAG IVPB SCH (01:29)
[2018-02-28 02:25] LABS: Albumin 2.7 g/dL (3.5-5.0); Calcium 7.2 mg/dL (8.4-10.2); Magnesium 2.6 mg/dL (1.6-2.3); Potassium 3.3 mmol/L (3.5-5.1); Total Bilirubin 0.3 mg/dL (0.2-1.3); Total Protein 4.8 g/dL (6.3-8.2)
[2018-02-28 02:40] LABS: Basophils % (A) 0 %; Eosinophils # (A) 0.1 k/uL (0-0.7); Eosinophils % (A) 1 %; HCT 21.1 % (34.0-46.0); Hypochromasia Marked; Lymphocytes # (A) 1.5 k/uL (1.0-4.8); Lymphocytes % (A) 21 %; MCH 31.6 pg (25.0-35.0); MCHC 30.8 g/dL (31.0-37.0); Macrocytosis Slight; Mean Platelet Volume 6.6; Monocytes # (A) 0.3 k/uL (0-1.0); Monocytes % (A) 5 %; Neutrophils # (A) 4.9 k/uL (1.3-7.7); Neutrophils % (A) 72 %; Platelet Count 228 k/uL (150-450); RBC 2.06 m/uL (3.80-5.40); RDW 14.7 % (11.5-15.5); WBC 6.9 k/uL (3.8-10.6)
[2018-02-28 02:44] LABS: HGB 6.5 gm/dL (11.4-16.0)
[2018-02-28 02:45] LABS: MCV 102.7 fL (80.0-100.0)
[2018-02-28] MEDS: TOBRA-DEXAMET 0.3-0.1% OPHTH DROPS 2.5 ML BTL BOTH EYES SCH ×4 (02:58→21:11)
[2018-02-28] MEDS ORDERED: SODIUM CHLORIDE 0.9% 1,000 ML IV ONE (03:25)
[2018-02-28] MEDS ORDERED: PANTOPRAZOLE 40 MG/10 ML VIAL IVP ONE (03:26)
[2018-02-28] MEDS ORDERED: Potassium Replacement Protocol 1 EACH MISC MISCELLANE PRN (03:30)
[2018-02-28] MEDS ORDERED: FAMOTIDINE 20 MG/2 ML VIAL IV STA (03:43)
[2018-02-28] MEDS: SODIUM CHLORIDE 0.9% 1,000 ML IV SCH (05:36)
[2018-02-28 06:51] LABS: Iron Saturation 27.27 (12.00-45.00)
[2018-02-28 07:03] LABS: Parathyroid Hormone Intact 33.1 pg/mL (14.0-72.0)
[2018-02-28] MEDS ORDERED: ERGOCALCIFEROL 50,000 UNIT CAP PO SCH (09:00)
[2018-02-28] MEDS ORDERED: FAMOTIDINE 20 MG/2 ML VIAL IV SCH (09:00)
[2018-02-28] MEDS: POTASSIUM CHLORIDE 20 MEQ in WATER FOR INJECTION 1 100ML.BAG IVPB SCH ×2 (09:18→11:44)
[2018-02-28] MEDS: DULoxetine HCL 60 MG CAPSULE.DR PO SCH (09:22)
[2018-02-28] MEDS: FAMOTIDINE 20 MG/2 ML VIAL IV SCH ×2 (09:23→21:11)
[2018-02-28] MEDS: POTASSIUM CHLORIDE ER 20 MEQ TAB.ER PO SCH ×2 (09:24→21:13)
[2018-02-28] MEDS: GABAPENTIN 300 MG CAP PO SCH ×3 (09:24→21:13)
[2018-02-28] MEDS: MAGNESIUM OXIDE 400 MG TAB PO SCH ×2 (09:24→21:12)
[2018-02-28] MEDS: ALPRAZolam 0.25 MG TAB PO PRN (09:42)
[2018-02-28] MEDS: DEXTROSE 5% IN WATER 1,000 ML with SODIUM BICARB (1 MEQ/ML) 150 ML IV SCH ×2 (09:42→21:01)
[2018-02-28] MEDS: HYDROcodone/APAP 5-325MG 1 EACH TAB PO PRN ×3 (09:42→21:09)
[2018-02-28 10:10] LABS: Basophils % (A) 0 %; Eosinophils # (A) 0.1 k/uL (0-0.7); Eosinophils % (A) 1 %; HCT 26.5 % (34.0-46.0); Hypochromasia Slight; Lymphocytes # (A) 0.9 k/uL (1.0-4.8); Lymphocytes % (A) 18 %; MCH 29.4 pg (25.0-35.0); MCHC 30.3 g/dL (31.0-37.0); Mean Platelet Volume 7.2; Monocytes # (A) 0.2 k/uL (0-1.0); Monocytes % (A) 5 %; Neutrophils # (A) 4.1 k/uL (1.3-7.7); Neutrophils % (A) 76 %; Platelet Count 220 k/uL (150-450); RBC 2.73 m/uL (3.80-5.40); RDW 15.3 % (11.5-15.5); WBC 5.3 k/uL (3.8-10.6)
[2018-02-28 10:11] LABS: Potassium 3.9 mmol/L (3.5-5.1)
--- NOTE | 2018-02-28 11:45 | ECHOF ---
Referral Reason:evaluation MEASUREMENTS -------- HEIGHT: 152.4 cm WEIGHT: 52.6 kg BP: 96/56 IVSd: 1.2 cm (0.6 - 1.1) LVIDd: 4.1 cm (3.9 - 5.3) LVPWd: 0.9 cm (0.6 - 1.1) IVSs: 1.3 cm LVIDs: 3.5 cm LVPWs: 1.0 cm Ao Diam: 2.6 cm (2.0 - 3.7) AV Cusp: 1.6 cm (1.5 - 2.6) LA Diam: 3.5 cm (2.7 - 3.8) MV EXCURSION: 14.924 mm (> 18.000) MV EF SLOPE: 41 mm/s (70 - 150) EPSS: 1.2 cm MV E Meño: 1.19 m/s MV DecT: 225 ms MV A Meño: 1.12 m/s MV E/A Ratio: 1.06 RAP: 5.00 mmHg RVSP: 27.81 mmHg FINDINGS -------- Sinus rhythm. This was a technically adequate study. LV size, wall thickness and systolic function are normal, with an EF greater than 55%. The left alfonso tricular size is normal. The right ventricle is normal in size. The left atrial size is normal. The right atrial size is normal. The aortic valve is trileaflet, and appears structurally normal. No aortic stenosis or regurgitation. Mild mitral annular calcification present. Mild mitral regurgitation is present. Mild tricuspid regurgitation present. There is no evidence of pulmonary hypertension. The right v entricular systolic pressure, as measured by Doppler, is 27.81mmHg. There is no pulmonic regurgitation present. The aortic root size is normal. There is no pericardial effusion. CONCLUSIONS -------- 1. LV size, wall thickness and systolic function are normal, with an EF greater than 55%. 2. The left ventricular size is normal. 3. The right ventricle is normal in size. 4. The left atrial size is normal. 5. The right atrial size is normal. 6. The aortic valve is trileaflet, and appears structurally normal. No aortic stenosis or regurgitati on. 7. Mild mitral annular calcification present. 8. Mild mitral regurgitation is present. 9. Mild tricuspid regurgitation present. 10. There is no evidence of pulmonary hypertension. 11. The right ventricular systolic pressure, as measured by Doppler, is 27.81mmHg. 12. There is no pulmonic regurgitation present. 13. The aortic root size is normal. 14. There is no pericardial effusion. [employer] OFF[employer]ER: Aubree Dumas RDCS
[2018-02-28] MEDS: FOLIC ACID 1 MG TAB PO SCH (11:50)
--- NOTE | 2018-02-28 12:46 | P.HPIM ---
History of Present Illness H&P Date: 02/28/18 Chief Complaint: Abnormal laboratory values This is a 62-year-old female patient of Dr. Haq. with history of TIA , chronic pain, lupus, multiple sclerosis, fibromyalgia. Patient's last hospitalization was in April 2017 which time she presented with metabolic encephalopathy secondary to narcotic overuse. Patient has now presented to [facility] emergency center on 2 occasions, initially on February 25 due to wounds left lower leg that was from a neighbor's cat 11 days prior. She was seen at that time and given ciprofloxacin and clindamycin and completed the antibiotics. Lab work was done and she was found to have a critical calcium of 5.9, creatinine of 2.7 and hemoglobin 7.6. Patient refused to be hospitalized and was instructed to follow-up with her PCP. Patient returned on February 27 and she states the Dr. Haq called her and told her to come in the hospital for evaluation. Patient has denied any nausea vomiting or diarrhea no black stools she does complain of generalized weakness to her bilateral lower extremities secondary to MS and a previous stroke. She complains of feeling tired. She does have healing wounds to the left lower extremity but no signs of infection. She is complaining at this time of abdominal pain to the low area and towards the back. Repeat lab work showed hemoglobin of 7.1, creatinine 1.9, potassium 2.8, chloride 117, CO2 12, magnesium was undetectable. Patient was given a fluid bolus, calcium, potassium and magnesium replacements, Nexium was discontinued and patient placed on Pepcid. Consult requested with nephrology and GI. Patient had a line placed in the right IJ by the ER physician. Review of Systems All systems: negative Constitutional: Reports fatigue, Reports weakness, Denies chills, Denies fever, Denies poor appetite Eyes: denies blurred vision, denies pain Ears, nose, mouth and throat: Denies headache, Denies sore throat, Denies vertigo Cardiovascular: Denies chest pain, Denies decreased exercise tolerance, Denies dyspnea on exertion, Denies edema, Denies shortness of breath, Denies syncope Respiratory: Denies cough, Denies cough with sputum, Denies dyspnea, Denies excessive sputum, Denies hemoptysis, Denies home oxygen, Denies wheezing Gastrointestinal: Reports abdominal pain, Denies diarrhea, Denies nausea, Denies vomiting Genitourinary: Denies dysuria, Denies hematuria Musculoskeletal: Denies myalgias Integumentary: Reports wounds, Denies pruritus, Denies rash Neurological: Denies numbness, Denies weakness Psychiatric: Denies anxiety, Denies depression Endocrine: Denies fatigue, Denies weight change Past Medical History Past Medical History: CVA/TIA, Fibromyalgia Additional Past Medical History / Comment(s): Lupus, TIA, right hand tendons severed, closed head injury, multiple sclerosis History of Any Multi-Drug Resistant Organisms: None Reported Past Surgical History: Appendectomy, Back Surgery, Section, Orthopedic Surgery Additional Past Surgical History / Comment(s): stomach cancer Past Anesthesia/Blood Transfusion Reactions: No Reported Reaction Past Psychological History: No Psychological Hx Reported Smoking Status: Current every day smoker Past Alcohol Use History: None Reported Additional Past Alcohol Use History / Comment(s): Patient is a smoker of a half a pack per days and she was 11 years of age. She denies any alcohol use. She does have a caregiver that cooks. She lives in a small apartment. She denies any cane or walker his apartment is small but she uses an electric wheelchair when she leaves the apartment. Past Drug Use History: None Reported - Past Family History Father Additional Family Medical History / Comment(s): Father is alive with history of diabetes and stomach problems. Mother Additional Family Medical History / Comment(s): Mother has history of diabetes, coronary artery disease and COPD. Sister(s) Additional Family Medical History / Comment(s): Patient has sisters all have female problems. She does state there is breast cancer history in her aunt. Son(s) Additional Family Medical History / Comment(s): Patient has one son with no major medical problems. Medications and Allergies Home Medications Medication Instructions Recorded Confirmed Type Carisoprodol [Soma] 350 mg PO HS 04/14/15 02/27/18 History Diphenoxylate HCl/Atropine 1 tab PO TID 04/14/15 02/27/18 History [Lomotil] Gabapentin [Neurontin] 300 mg PO TID 04/14/15 02/27/18 History QUEtiapine [SEROquel] 50 mg PO HS 04/14/15 02/27/18 History DULoxetine HCL [Cymbalta] 60 mg PO DAILY 05/24/17 02/27/18 History Ergocalciferol [Vitamin D2 50,000 unit PO MO 05/24/17 02/27/18 History (DRISDOL)] Esomeprazole Magnesium [NexIUM] 20 mg PO DAILY 05/24/17 02/27/18 History Folic Acid 1 mg PO DAILY 05/24/17 02/27/18 History Magnesium Oxide [Mag-Ox] 400 mg PO BID 05/24/17 02/27/18 History ALPRAZolam [Xanax] 0.25 mg PO BID PRN 02/27/18 02/27/18 History Carisoprodol [Soma] 350 mg PO HS 02/27/18 02/27/18 History Ibuprofen [Advil] 200 mg PO Q6HR PRN 02/27/18 02/27/18 History Potassium Chloride ER [K-Dur 20] 40 meq PO BID 02/27/18 02/27/18 History Tobra-Dexamet 0.3-0.1% Eye Vani 2 drops BOTH EYES Q6H 02/27/18 02/27/18 History [Tobradex Ophth Susp] traZODone HCL 150 mg PO HS 02/27/18 02/27/18 History Allergies Allergy/AdvReac Type Severity Reaction Status Date / Time aspirin Allergy Unknown Verified 02/27/18 16:13 divalproex sodium Allergy Unknown Verified 02/27/18 16:13 [From Depakote] erythromycin base Allergy Unknown Verified 02/27/18 16:13 Penicillins Allergy Unknown Verified 02/27/18 16:13 Sulfa (Sulfonamide Allergy Unknown Verified 02/27/18 16:13 Antibiotics) Physical Exam Vitals: Vital Signs Temp Pulse Pulse Resp BP BP Pulse Ox 02/28/18 08:39 98.0 F 65 18 103/64 98 02/28/18 06:44 99/53 02/28/18 06:28 96/56 02/28/18 05:43 97 F L 68 16 100/55 98 02/28/18 05:13 97.0 F L 65 16 98/50 98 02/28/18 05:03 97.0 F L 65 16 87/60 97 02/28/18 04:45 108/50 02/28/18 04:44 90/45 02/28/18 04:00 16 02/28/18 03:45 68/42 02/28/18 03:40 71/42 02/28/18 03:35 68 18 75/40 96 02/28/18 03:30 66 18 68/41 95 02/28/18 00:00 97.5 F L 72 16 124/70 100 02/27/18 20:55 97.9 F 63 16 133/70 97 02/27/18 19:25 97.9 F 67 18 139/71 99 02/27/18 19:19 97.1 F L 68 16 129/72 100 02/27/18 14:26 98.8 F 70 20 105/60 99 Intake and Output 02/27/18 02/28/18 02/28/18 22:59 06:59 14:59 Intake Total 200 1500 310 Output Total 250 Balance 200 1250 310 Intake: IV 200 1500 0.9 200 1500 Blood Product 0 310 Rc As-3 Unit 0 310 [id number] Output: Urine 250 Other: Voiding Method Toilet Bedpan # Voids 1 Weight 52.617 kg 53 kg - Constitutional General appearance: Well-nourished, awake and oriented, cooperative - EENT Eyes: anicteric sclerae, PERRLA, normal appearance ENT: hearing grossly normal - Neck Neck: no lymphadenopathy, normal ROM, no other, no rigidity, no stridor, no thyromegaly - Respiratory Respiratory: bilateral: Bilateral crackles heard with significant wheezing in all the lung lobes with decreased air entry - Cardiovascular Rhythm: regular Heart sounds: normal: S1, S2 Abnormal Heart Sounds: Positive for systolic murmur, no diastolic murmur, no rub , no S3 Gallop, no S4 Gallop, no click, no other - Gastrointestinal General gastrointestinal: normal bowel sounds, soft, nontender - Integumentary Integumentary: no rash - Neurologic Neurologic: CNII-XII intact, moving all her extremities equally, no sensory deficit appreciated - Musculoskeletal Musculoskeletal: strength equal bilaterally with generalized weakness of lower extremities, superficial abrasions to the left lower extremity without erythema. Mild edema - Psychiatric Psychiatric: A&O x's 3, appropriate affect Results CBC & Chem 7: 02/28/18 09:45 02/28/18 09:45 Labs: Abnormal Lab Results - Last 24 Hours (Table) 02/27/18 02/27/18 02/27/18 Range/Units 16:20 16:20 17:30 RBC 2.30 L (3.80-5.40) m/uL Hgb 7.1 L (11.4-16.0) gm/dL Hct 22.3 L (34.0-46.0) % MCV (80.0-100.0) fL MCHC (31.0-37.0) g/dL Potassium 2.8 L* (3.5-5.1) mmol/L Chloride 117 H (98-107) mmol/L Carbon Dioxide 12 L (22-30) mmol/L Creatinine 1.90 H (0.52-1.04) mg/dL Glucose (74-99) mg/dL Calcium 6.3 L* (8.4-10.2) mg/dL Magnesium <0.4 L* (1.6-2.3) mg/dL TIBC (228-460) ug/dL AST 12 L (14-36) U/L Total Protein 5.5 L (6.3-8.2) g/dL Albumin 3.2 L (3.5-5.0) g/dL Vitamin D 25-Hydroxy (30.0-100.0) ng/mL Crossmatch 02/27/18 02/27/18 02/28/18 Range/Units 20:23 20:23 01:46 RBC (3.80-5.40) m/uL Hgb (11.4-16.0) gm/dL Hct (34.0-46.0) % MCV (80.0-100.0) fL MCHC (31.0-37.0) g/dL Potassium 3.3 L (3.5-5.1) mmol/L Chloride 117 H (98-107) mmol/L Carbon Dioxide 12 L (22-30) mmol/L Creatinine 1.80 H (0.52-1.04) mg/dL Glucose 129 H (74-99) mg/dL Calcium 7.2 L (8.4-10.2) mg/dL Magnesium 0.4 L* 2.6 H (1.6-2.3) mg/dL TIBC 198 L (228-460) ug/dL AST 12 L (14-36) U/L Total Protein 4.8 L (6.3-8.2) g/dL Albumin 2.7 L (3.5-5.0) g/dL Vitamin D 25-Hydroxy 26.0 L (30.0-100.0) ng/mL Crossmatch 02/28/18 02/28/18 Range/Units 01:46 03:10 RBC 2.06 L (3.80-5.40) m/uL Hgb 6.5 L* (11.4-16.0) gm/dL Hct 21.1 L (34.0-46.0) % MCV 102.7 H D (80.0-100.0) fL MCHC 30.8 L (31.0-37.0) g/dL Potassium (3.5-5.1) mmol/L Chloride (98-107) mmol/L Carbon Dioxide (22-30) mmol/L Creatinine (0.52-1.04) mg/dL Glucose (74-99) mg/dL Calcium (8.4-10.2) mg/dL Magnesium (1.6-2.3) mg/dL TIBC (228-460) ug/dL AST (14-36) U/L Total Protein (6.3-8.2) g/dL Albumin (3.5-5.0) g/dL Vitamin D 25-Hydroxy (30.0-100.0) ng/mL Crossmatch See Detail Thrombosis Risk Factor Assmnt - DVT/VTE Prophylaxis DVT/VTE Prophylaxis: Pharmacologic Prophylaxis ordered - Choose All That Apply Any of the Below Risk Factors Present?: No Each Risk Factor Represents 2 Points: Age 61-74 years Other congenital or acquired thrombophilia - If yes, enter type in comment: No Thrombosis Risk Factor Assessment Total Risk Factor Score: 2 Thrombosis Risk Factor Assessment Level: Low Risk Assessment and Plan Plan: 1.electrolyte abnormalities with hypocalcemia, hypomagnesemia, hypochloremia, hypokalemia, status post replacement. Continue to monitor closely and replace as needed. Consult with nephrology. 2. Acute kidney injury with chronic kidney disease stage III with metabolic acidosis. Consult with nephrology. Dr. Henderson started the patient on bicarb drip. Renal ultrasound ordered. 3. Acute anemia status post transfusion 1 unit of packed RBCs, rule out GI bleed, most likely secondary to renal disease. 4. Hypomagnesemia most likely secondary to PPI use, Nexium discontinued. Patient placed on Pepcid. 5. Recent Bite to the left lower extremity initially treated in the ER and placed on clindamycin and ciprofloxacin. No signs of active infection at this time. 6. Generalized anxiety disorder and recurrent depression. Continue Seroquel 50 mg at bedtime, trazodone 150 mg at bedtime. 7. Vitamin D deficiency. Patient started on vitamin D 2 50,000 units orally every 7 days. 8. Gastroesophageal reflux disease. Pepcid 20 mg IV twice daily. 9. Chronic pain. Continue Soma 350 mg at bedtime. 10. DVT prophylaxis. Heparin subcu. Patient will be admitted to the hospital for a minimum of 2 night stay. Discharge plan: To be determined. PT and OT added. Impression and plan of care have been directed as dictated by the signing physician. Annalisa Delcid nurse practitioner acting as scribe for signing physician.
--- NOTE | 2018-02-28 12:49 | US ---
EXAMINATION TYPE: US renals and bladder DATE OF EXAM: 02/28/2018 COMPARISON: 09/10/2015 CLINICAL HISTORY: RF. EXAM MEASUREMENTS: Right Kidney: 10.1 x 4.3 x 4.9 cm Left Kidney: 9.6 x 3.8 x 4.0 cm Exam done portable. Technical limitations. Patient unable to roll for technologist to reach left kidn ey due to new cental line she is afraid to disturb. In spite of technologist best effort to reach pos terior, left kidney not well visualized. Tiny amount of free fluid is seen in the abdomen. Right Kidney: No hydronephrosis or masses seen Left Kidney: due to overlying bowel and above limitations, left kidney not well seen Bladder: wnl IMPRESSION: Limited assessment of the left kidney as discussed above with no definite hydronephrosis or nephrolit hiasis. Incidental note is made of a tiny amount of free fluid in the abdomen.
--- NOTE | 2018-02-28 13:34 | P.CONS ---
History of Present Illness - Reason for Consult Consult date: 02/28/18 anemia Requesting physician: Huyen Duarte - Chief Complaint Abnormal outpatient CBC - History of Present Illness 62-year-old female patient of Dr. Haq with a past medical history of small bowel cancer 1987, multiple small bowel surgeries/resections secondary to obstruction adhesions last surgery [address] Guaman, short gut syndrome, chronic anemia, prepyloric gastric ulcer 2008, chronic rectal bleeding , B12 deficiency, opioid dependence, chronic pain, multiple sclerosis, fibromyalgia, and lupus. Admitted with reports of abnormal outpatient chemistries. Hemoglobin 7.1 decreased to 6.5 presently 8.0. MCV 97-102. Platelet 220-to 60. BUN 10. Creatinine 1.9. Potassium 2.8. Sodium 139. Magnesium less than 0.4. Iron 54. TIBC 198. Iron saturation 27%. Ferritin 207. Average hemoglobin when reviewing prior records between 7-9. B12 level in December 2017 was 670. She has been receiving antibiotics recently for cat bites. Consultation requested for anemia. Patient denies overt bleeding such as hematemesis hematochezia or melena. She's been expensive midepigastric extending down to the lower abdomen tenderness for about a month. Denies weight loss fever or chills. Last EGD colonoscopy September 2016 reported gastritis otherwise normal. He has been evaluated by hematology in the past and has required B12 supplementation. Denies excessive usage of aspirin. No alcohol. Home medications include 2 tablets of Advil 4 times a day for chronic pain. Folic acid supplementation and Nexium 20 mg daily. Review of Systems Constitutional: Denies fever, chills, sweats, weight gain, or loss. HEENT: Negative for migraines, blurred vision or loss, earaches, drainage, tinnitus, oral mucosal lesions, dysphagia, or odynophagia. CARDIAC: Negative for chest pain, arrhythmias, or palpitation. RESPIRATORY: Negative for shortness of breath, hemoptysis, cough, or sputum production. GI: See HPI for pertinent findings. : Negative for hematuria, urgency, frequency, polyuria, or dysuria. GYNc: Negative vaginal discharge. MUSCULOSKELETAL: Chronic back pain. NEUROLOGIC: Negative for stroke or TIA. ENDOCRINE: Negative for thyroid problems. SKIN: Negative for rash or itching. PSYCHIATRIC: Negative history for depression and anxiety Past Medical History Past Medical History: CVA/TIA, Fibromyalgia Additional Past Medical History / Comment(s): Lupus, TIA, right hand tendons severed, closed head injury, multiple sclerosis History of Any Multi-Drug Resistant Organisms: None Reported Past Surgical History: Appendectomy, Back Surgery, Section, Orthopedic Surgery Additional Past Surgical History / Comment(s): stomach cancer Past Anesthesia/Blood Transfusion Reactions: No Reported Reaction Past Psychological History: No Psychological Hx Reported Smoking Status: Current every day smoker Past Alcohol Use History: None Reported Past Drug Use History: None Reported - Past Family History Father Additional Family Medical History / Comment(s): Father is alive with history of diabetes and stomach problems. Mother Additional Family Medical History / Comment(s): Mother has history of diabetes, coronary artery disease and COPD. Sister(s) Additional Family Medical History / Comment(s): Patient has sisters all have female problems. She does state there is breast cancer history in her aunt. Son(s) Additional Family Medical History / Comment(s): Patient has one son with no major medical problems. Medications and Allergies Home Medications Medication Instructions Recorded Confirmed Type Carisoprodol [Soma] 350 mg PO HS 04/14/15 02/27/18 History Diphenoxylate HCl/Atropine 1 tab PO TID 04/14/15 02/27/18 History [Lomotil] Gabapentin [Neurontin] 300 mg PO TID 04/14/15 02/27/18 History QUEtiapine [SEROquel] 50 mg PO HS 04/14/15 02/27/18 History DULoxetine HCL [Cymbalta] 60 mg PO DAILY 05/24/17 02/27/18 History Ergocalciferol [Vitamin D2 50,000 unit PO MO 05/24/17 02/27/18 History (DRISDOL)] Esomeprazole Magnesium [NexIUM] 20 mg PO DAILY 05/24/17 02/27/18 History Folic Acid 1 mg PO DAILY 05/24/17 02/27/18 History Magnesium Oxide [Mag-Ox] 400 mg PO BID 05/24/17 02/27/18 History ALPRAZolam [Xanax] 0.25 mg PO BID PRN 02/27/18 02/27/18 History Carisoprodol [Soma] 350 mg PO HS 02/27/18 02/27/18 History Ibuprofen [Advil] 200 mg PO Q6HR PRN 02/27/18 02/27/18 History Potassium Chloride ER [K-Dur 20] 40 meq PO BID 02/27/18 02/27/18 History Tobra-Dexamet 0.3-0.1% Eye Vani 2 drops BOTH EYES Q6H 02/27/18 02/27/18 History [Tobradex Ophth Susp] traZODone HCL 150 mg PO HS 02/27/18 02/27/18 History Allergies Allergy/AdvReac Type Severity Reaction Status Date / Time aspirin Allergy Unknown Verified 02/27/18 16:13 divalproex sodium Allergy Unknown Verified 02/27/18 16:13 [From Depakote] erythromycin base Allergy Unknown Verified 02/27/18 16:13 Penicillins Allergy Unknown Verified 02/27/18 16:13 Sulfa (Sulfonamide Allergy Unknown Verified 02/27/18 16:13 Antibiotics) Physical Exam Vitals: Vital Signs Temp Pulse Pulse Resp BP BP Pulse Ox 02/28/18 08:39 98.0 F 65 18 103/64 98 02/28/18 06:44 99/53 02/28/18 06:28 96/56 02/28/18 05:43 97 F L 68 16 100/55 98 02/28/18 05:13 97.0 F L 65 16 98/50 98 02/28/18 05:03 97.0 F L 65 16 87/60 97 02/28/18 04:45 108/50 02/28/18 04:44 90/45 02/28/18 04:00 16 02/28/18 03:45 68/42 02/28/18 03:40 71/42 02/28/18 03:35 68 18 75/40 96 02/28/18 03:30 66 18 68/41 95 02/28/18 00:00 97.5 F L 72 16 124/70 100 02/27/18 20:55 97.9 F 63 16 133/70 97 02/27/18 19:25 97.9 F 67 18 139/71 99 02/27/18 19:19 97.1 F L 68 16 129/72 100 02/27/18 14:26 98.8 F 70 20 105/60 99 Intake and Output 02/27/18 02/28/18 02/28/18 22:59 06:59 14:59 Intake Total 200 1500 310 Output Total 250 Balance 200 1250 310 Intake: IV 200 1500 0.9 200 1500 Blood Product 0 310 Rc As-3 Unit 0 310 [id number] Output: Urine 250 Other: Voiding Method Toilet Bedpan # Voids 1 Weight 52.617 kg 53 kg General appearance: The patient is alert, oriented, in no acute distress. HET: Head is normocephalic and atraumatic. Pupils are equal and reactive. Oropharynx is clear without lesions. Neck: Supple without lymphadenopathy. Trachea midline. Heart: S1 S2. Regular rate and rhythm. Lungs: No crackles or wheezes are heard. Abdomen: Soft, very mild tenderness midepigastrium extending down to the bilateral lower abdomen, nondistended with bowel sounds. No peritoneal signs. No palpable organomegaly or masses. Extremities: Normal skin color and turgor. No cyanosis, rash, ulceration, clubbing, or edema. Radial and pedal pulses are 2/4 bilaterally. Neurological: No focal deficits. Strength and sensation are grossly intact. Results CBC & Chem 7: 02/28/18 09:45 02/28/18 09:45 Labs: Abnormal Lab Results - Last 24 Hours (Table) 02/27/18 02/27/18 02/27/18 Range/Units 16:20 16:20 17:30 RBC 2.30 L (3.80-5.40) m/uL Hgb 7.1 L (11.4-16.0) gm/dL Hct 22.3 L (34.0-46.0) % MCV (80.0-100.0) fL MCHC (31.0-37.0) g/dL Lymphocytes # (1.0-4.8) k/uL Potassium 2.8 L* (3.5-5.1) mmol/L Chloride 117 H (98-107) mmol/L Carbon Dioxide 12 L (22-30) mmol/L Creatinine 1.90 H (0.52-1.04) mg/dL Glucose (74-99) mg/dL Calcium 6.3 L* (8.4-10.2) mg/dL Magnesium <0.4 L* (1.6-2.3) mg/dL TIBC (228-460) ug/dL AST 12 L (14-36) U/L Total Protein 5.5 L (6.3-8.2) g/dL Albumin 3.2 L (3.5-5.0) g/dL Vitamin D 25-Hydroxy (30.0-100.0) ng/mL Crossmatch 02/27/18 02/27/18 02/28/18 Range/Units 20:23 20:23 01:46 RBC (3.80-5.40) m/uL Hgb (11.4-16.0) gm/dL Hct (34.0-46.0) % MCV (80.0-100.0) fL MCHC (31.0-37.0) g/dL Lymphocytes # (1.0-4.8) k/uL Potassium 3.3 L (3.5-5.1) mmol/L Chloride 117 H (98-107) mmol/L Carbon Dioxide 12 L (22-30) mmol/L Creatinine 1.80 H (0.52-1.04) mg/dL Glucose 129 H (74-99) mg/dL Calcium 7.2 L (8.4-10.2) mg/dL Magnesium 0.4 L* 2.6 H (1.6-2.3) mg/dL TIBC 198 L (228-460) ug/dL AST 12 L (14-36) U/L Total Protein 4.8 L (6.3-8.2) g/dL Albumin 2.7 L (3.5-5.0) g/dL Vitamin D 25-Hydroxy 26.0 L (30.0-100.0) ng/mL Crossmatch 02/28/18 02/28/18 02/28/18 Range/Units 01:46 03:10 09:45 RBC 2.06 L 2.73 L (3.80-5.40) m/uL Hgb 6.5 L* 8.0 L (11.4-16.0) gm/dL Hct 21.1 L 26.5 L (34.0-46.0) % MCV 102.7 H D (80.0-100.0) fL MCHC 30.8 L 30.3 L (31.0-37.0) g/dL Lymphocytes # 0.9 L (1.0-4.8) k/uL Potassium (3.5-5.1) mmol/L Chloride (98-107) mmol/L Carbon Dioxide (22-30) mmol/L Creatinine (0.52-1.04) mg/dL Glucose (74-99) mg/dL Calcium (8.4-10.2) mg/dL Magnesium (1.6-2.3) mg/dL TIBC (228-460) ug/dL AST (14-36) U/L Total Protein (6.3-8.2) g/dL Albumin (3.5-5.0) g/dL Vitamin D 25-Hydroxy (30.0-100.0) ng/mL Crossmatch See Detail 02/28/18 Range/Units 09:45 RBC (3.80-5.40) m/uL Hgb (11.4-16.0) gm/dL Hct (34.0-46.0) % MCV (80.0-100.0) fL MCHC (31.0-37.0) g/dL Lymphocytes # (1.0-4.8) k/uL Potassium (3.5-5.1) mmol/L Chloride 121 H (98-107) mmol/L Carbon Dioxide 13 L (22-30) mmol/L Creatinine 1.48 H (0.52-1.04) mg/dL Glucose (74-99) mg/dL Calcium 7.0 L (8.4-10.2) mg/dL Magnesium (1.6-2.3) mg/dL TIBC (228-460) ug/dL AST (14-36) U/L Total Protein (6.3-8.2) g/dL Albumin (3.5-5.0) g/dL Vitamin D 25-Hydroxy (30.0-100.0) ng/mL Crossmatch Assessment and Plan (1) Anemia Narrative/Plan: 62-year-old female admitted with abnormal outpatient chemistries electrolytes disturbances acute on chronic anemia component of nutritional anemia without overt bleeding such as hematemesis magnesium melena. Patient has a history of small bowel carcinoma 1987 followed by multiple small bowel surgeries resections adhesions last one completed in 2011 with underlying GERD, vitamin B12 deficiency and suspected short gut syndrome. No clinical evidence to suggest an active GI bleed at this time. Current Visit: Yes Status: Acute Code(s): D64.9 - ANEMIA, UNSPECIFIED SNOMED Code(s): 608054841 Plan: 1. Patient is requesting a hematology consult she is scheduled to be seen in the office in a few days would like an inpatient consultation. 2. Inpatient endoscopic exams not planned at this time. 3. Diet as tolerated. 4. Will check a B12 level. Continue GI prophylaxis. Thank you for this kind referral and the opportunity to participate in the care of your patient. This consultation was discussed with Dr. Martínez. The impression and plan of care have been directed as dictated.
[2018-02-28] MEDS ORDERED: DARBEPOETIN ALFA 40 MCG/0.4 ML SYRINGE SQ SCH (16:00)
--- NOTE | 2018-02-28 16:59 | CONS ---
CONSULTATION REASON FOR CONSULT: Renal failure. HISTORY OF PRESENT ILLNESS: The patient is a 62-year-old female who was admitted to the hospital with complaints of abnormal blood work done as outpatient. The patient had been feeling weak and does have an underlying history of anemia, which was being worked up by Hematology as outpatient. Patient states she was scheduled for a bone marrow biopsy to be done soon. On admission labs patient was found to have a potassium of 2.8, serum creatinine 1.9. CO2 was 12. Her hemoglobin was 7.1 and dropped down to 6.5 this morning. Patient denies any active bleeding and, as mentioned, she stated she was being worked up for anemia with plans for bone marrow biopsy by Dr. Lemos. Review of previous labs shows a serum creatinine of 1.4 on 01/23/2018, and in May of 2017 we have a creatinine of 1.18. This admission patient was at 2.7 and is now down to 1.48. She has received IV fluids. Patient did admit to history of use of nonsteroidal anti-inflammatory agents. She was taking about 3 Aleve per day prior to admission. No significant change in urine output. PAST MEDICAL HISTORY: 1. Hypertension. 2. Anemia, being worked up. 3. History of CVA/TIA. 4. Fibromyalgia. 5. History of closed-head injury. 6. History of multiple sclerosis. PAST SURGICAL HISTORY: 1. Appendectomy. 2. . SOCIAL HISTORY: Patient smokes half a pack per day. She denies any drug abuse or alcohol abuse. MEDICATIONS AT HOME: 1. Soma. 2. Lomotil. 3. Neurontin. 4. Seroquel. 5. Cymbalta. 6. Nexium. 7. Drisdol. 8. Folic acid. 9. Magnesium. 10.Xanax. 11.Advil. 12.Potassium. 13.Trazodone. ALLERGIES: 1. ASPIRIN. 2. DEPAKOTE. 3. ERYTHROMYCIN. 4. PENICILLIN. 5. SULFA. REVIEW OF SYSTEMS: As per HPI. Other systems negative. PHYSICAL EXAMINATION: Patient is currently comfortable, awake. She is not in any acute distress. Blood pressure was 100/55, heart rate 68 per minute. She is afebrile. EXAMINATION OF THE HEART: S1, S2. EXAMINATION OF LUNGS: Bilateral breath sounds are heard. ABDOMEN: Soft, non-tender. Examination of lower extremities shows no significant edema. WEB SUPPORT ENGINEER exam is grossly intact. LABS: Sodium 141, potassium 3.9, chloride 121. CO2 is 13, BUN 8, serum creatinine 1.48. Magnesium was 0.4 on admission. Now it is 2.0. Hemoglobin 8.0, up from 6.5 on initial admission. Vitamin D was 26, PTH 33. Iron saturation was at 27%. ASSESSMENT: 1. Acute kidney injury secondary to hypotension as well as use of nonsteroidal anti- inflammatory agents prior to admission. Renal function is currently improving. Serum creatinine is down to 1.48. Lowest creatinine was 1.18 in May of 2017. The patient is maintained on IV fluids, which I will continue. She is not on any nephrotoxic agents currently. 2. Hypokalemia associated with decreased oral intake. Patient was maintained on potassium supplements at home as well. I do not see any diuretics prior to her admission. She may have an underlying tubular disorder with potassium wasting. However, this will need to be checked once the potassium is replaced. We will check a random urine potassium. 3. Severe hypomagnesemia secondary to proton pump inhibitor usage. Currently off of Nexium and status post replacement. Definitely the hypomagnesemia has contributed to the hypokalemia as well. 4. Severe metabolic acidosis secondary to renal failure. Rule out underlying RTA. I will start the patient on IV bicarb and she will continue with oral sodium bicarb as well. 5. Anemia, being followed by Hematology as outpatient. There were plans for bone marrow biopsy. There is no active bleeding noted. There is no significant iron deficiency noted as well. I will start the patient on Aranesp. However, Hematology is on consult and I agree with bone marrow biopsy, given that her renal function was not significantly weak previously. Serum creatinine was 1.1 in May, which is also elevated for her size. 6. Malnutrition vitamin D deficiency. Will maintain patient on supplementation. PLAN: Change IV fluids to IV bicarb. Continue potassium replacement and magnesium replacement. Continue off of proton pump inhibitors. Start Procrit. Repeat labs in a.m. Patient is advised to continue to stay off of all nonsteroidal anti-inflammatory agents. Thank you for this consultation. Will continue to follow the patient with you during her hospitalization. MMODL / IJN: [id number] /
[2018-02-28] MEDS: traZODone HCL 50 MG TAB PO SCH (21:12)
[2018-02-28] MEDS: QUEtiapine 50 MG TAB PO SCH (21:13)
[2018-02-28 21:44] LABS: Appearance,Urine Clear (Clear); Bilirubin,Urine Negative (Negative); Blood,Urine Negative (Negative); Color,Urine Light Yellow; Glucose,Urine (UA) Negative (Negative); Ketones,Urine Negative (Negative); Leukocyte Esterase,Urine Negative (Negative); Nitrite,Urine Negative (Negative); Protein,Urine Negative (Negative); Specific Gravity,Urine 1.009 (1.001-1.035); Urobilinogen,Urine <2.0 mg/dL (<2.0)
[2018-02-28] MEDS: CARISOPRODOL 350 MG TAB PO SCH (23:55)
[2018-03-01 04:29] VITALS: RESP 16
[2018-03-01] MEDS: TOBRA-DEXAMET 0.3-0.1% OPHTH DROPS 2.5 ML BTL BOTH EYES SCH ×2 (05:22→09:20)
[2018-03-01 07:08] LABS: Basophils % (A) 0 %; Eosinophils # (A) 0.1 k/uL (0-0.7); Eosinophils % (A) 2 %; HCT 23.2 % (34.0-46.0); HGB 7.8 gm/dL (11.4-16.0); Hypochromasia Slight; Lymphocytes # (A) 1.5 k/uL (1.0-4.8); Lymphocytes % (A) 30 %; MCH 32.3 pg (25.0-35.0); MCHC 33.7 g/dL (31.0-37.0); MCV 95.6 fL (80.0-100.0); Mean Platelet Volume 6.5; Monocytes # (A) 0.3 k/uL (0-1.0); Monocytes % (A) 5 %; Neutrophils # (A) 3.2 k/uL (1.3-7.7); Neutrophils % (A) 62 %; Platelet Count 189 k/uL (150-450); RBC 2.43 m/uL (3.80-5.40); RDW 15.3 % (11.5-15.5); WBC 5.1 k/uL (3.8-10.6)
[2018-03-01] MEDS: DEXTROSE 5% IN WATER 1,000 ML with SODIUM BICARB (1 MEQ/ML) 150 ML IV SCH (08:35)
[2018-03-01] MEDS: FAMOTIDINE 20 MG/2 ML VIAL IV SCH (09:16)
[2018-03-01] MEDS: GABAPENTIN 300 MG CAP PO SCH (09:19)
[2018-03-01] MEDS: MAGNESIUM OXIDE 400 MG TAB PO SCH (09:19)
[2018-03-01] MEDS: POTASSIUM CHLORIDE ER 20 MEQ TAB.ER PO SCH (09:19)
[2018-03-01] MEDS: DULoxetine HCL 60 MG CAPSULE.DR PO SCH (09:19)
[2018-03-01] MEDS: HYDROcodone/APAP 5-325MG 1 EACH TAB PO PRN (10:20)
--- NOTE | 2018-03-01 10:52 | P.PN ---
Subjective Progress Note Date: 03/01/18 Principal diagnosis: Anemia No complaints. Denies abdominal pain. No bleeding. Hemoglobin 7.8. Objective - Vital Signs Vital signs: Vital Signs Temp 98.2 F 03/01/18 07:51 Pulse 63 03/01/18 07:51 Resp 16 03/01/18 07:51 BP 147/63 03/01/18 07:51 Pulse Ox 94 L 03/01/18 04:26 Intake & Output 02/28/18 03/01/18 03/01/18 18:59 06:59 18:59 Intake Total 400 570 Balance 400 570 Weight 57.9 kg Intake: Oral 90 570 Blood Product 310 Rc As-3 Unit 310 [id number] Other: Voiding Method Toilet # Voids 1 2 1 # Bowel Movements 0 - Exam General appearance: The patient is alert, oriented, in no acute distress. HET: Head is normocephalic and atraumatic. Pupils are equal and reactive. Oropharynx is clear without lesions. Neck: Supple without lymphadenopathy. Trachea midline. Heart: S1 S2. Regular rate and rhythm. Lungs: No crackles or wheezes are heard. Abdomen: Soft, nontender, nondistended with bowel sounds. No peritoneal signs. No palpable organomegaly or masses. Extremities: Normal skin color and turgor. No cyanosis, rash, ulceration, clubbing, or edema. Radial and pedal pulses are 2/4 bilaterally. Neurological: No focal deficits. Strength and sensation are grossly intact. - Labs CBC & Chem 7: 03/01/18 06:54 03/01/18 06:49 Labs: Abnormal Lab Results - Last 24 Hours (Table) 02/27/18 03/01/18 Range/Units 20:23 06:54 RBC 2.43 L (3.80-5.40) m/uL Hgb 7.8 L (11.4-16.0) gm/dL Hct 23.2 L (34.0-46.0) % Transferrin 151.0 L (204.0-354.0) mg/dL Assessment and Plan (1) Anemia Narrative/Plan: 62-year-old female admitted with abnormal outpatient chemistries electrolytes disturbances acute on chronic anemia component of nutritional anemia without overt bleeding such as hematemesis magnesium melena. Patient has a history of small bowel carcinoma 1987 followed by multiple small bowel surgeries resections adhesions last one completed in 2011 with underlying GERD, vitamin B12 deficiency and suspected short gut syndrome. No clinical evidence to suggest an active GI bleed at this time. Current Visit: Yes Status: Acute Code(s): D64.9 - ANEMIA, UNSPECIFIED SNOMED Code(s): 041505733 Plan: 1. Continue symptomatic supportive measures. Discharge per medicine and career consultant service. Follow up with hematology as advised. Will follow as needed. Assessment and plan of care discussed with Dr. Martínez
[2018-03-01] MEDS ORDERED: SODIUM BICARBONATE TAB 650 MG TAB PO SCH (11:15)
--- NOTE | 2018-03-01 11:15 | P.PN ---
Subjective Patient is seen in follow-up for acute kidney injury and electrolyte imbalance. Creatinine was down to 1.48 yesterday. Potassium today is 4.0. She is currently resting in bed. Patient states she has bowel incontinence and does have loose bowel movements. Proton pump inhibitor has been discontinued. She scheduled for discharge today. Vital signs are stable. General: The patient appeared well nourished and normally developed. HEENT: Head exam is unremarkable. Neck is without jugular venous distension. LUNGS: Lungs are clear to auscultation and percussion. Breath sounds decreased. HEART: Rate and Rhythm are regular. First and second heart sounds normal. No murmurs, rubs or gallops. ABDOMEN: Abdominal exam reveals normal bowel sounds. Non-tender and non- distended. No evidence of peritonitis. EXTREMITITES: No clubbing, cyanosis, or edema. Objective - Vital Signs Vital signs: Vital Signs Temp 98.2 F 03/01/18 07:51 Pulse 63 03/01/18 07:51 Resp 16 03/01/18 07:51 BP 147/63 03/01/18 07:51 Pulse Ox 94 L 03/01/18 04:26 Intake & Output 02/28/18 03/01/18 03/01/18 18:59 06:59 18:59 Intake Total 400 570 Balance 400 570 Weight 57.9 kg Intake: Oral 90 570 Blood Product 310 Rc As-3 Unit 310 [id number] Other: Voiding Method Toilet # Voids 1 2 1 # Bowel Movements 0 - Labs CBC & Chem 7: 03/01/18 06:54 03/01/18 06:49 Labs: Abnormal Lab Results - Last 24 Hours (Table) 02/27/18 03/01/18 Range/Units 20:23 06:54 RBC 2.43 L (3.80-5.40) m/uL Hgb 7.8 L (11.4-16.0) gm/dL Hct 23.2 L (34.0-46.0) % Transferrin 151.0 L (204.0-354.0) mg/dL Assessment and Plan Plan: Assessment: 1. Nonoliguric acute kidney injury mostly prerenal and anemia improved with IV hydration. Creatinine on the 1.48 as of yesterday. 2. Severe hypokalemia secondary to hypomagnesemia. Also concern for underlying tubular disorder leading to renal potassium wasting. 3. Hypomagnesemia from diarrhea and proton pump inhibitor use. Improved posterior placement. 4. Metabolic acidosis secondary to GI losses as well as concern for underlying RTA. Maintain on bicarb drip. 5. Acute anemia status post blood transfusion. Hemoglobin 7.8 today. GI following. Plan: Hep-Lock IV fluids. Add oral sodium bicarbonate 650 mg twice daily. Follow-up morning labs. If magnesium level below 2, will add oral Mag-Ox as well. Hold off on proton pump inhibitor. Follow up outpatient in the next 1-2 weeks. Repeat BMP and magnesium 2-3 days post-discharge.
[2018-03-01 11:26] LABS: Calcium 7.7 mg/dL (8.4-10.2); Magnesium 1.7 mg/dL (1.6-2.3)
--- NOTE | 2018-03-01 11:39 | P.DS ---
Providers Date of admission: 02/27/18 18:52 Attending physician: Huyen Duarte MD Consults: 02/28/18 08:56 Consult Physician Routine Consulting Provider: Keyshawn Vaz Consult Reason/Comments: CKD, electrolyte abnormality Do you want consulting provider notified?: Yes Primary care physician: Meseret Haq [facility] Course: This is a 62-year-old female patient of Dr. Haq. with history of TIA , chronic pain, lupus, multiple sclerosis, fibromyalgia. Patient's last hospitalization was in April 2017 which time she presented with metabolic encephalopathy secondary to narcotic overuse. Patient has now presented to [facility] emergency center on 2 occasions, initially on February 25 due to wounds left lower leg that was from a neighbor's cat 11 days prior. She was seen at that time and given ciprofloxacin and clindamycin and completed the antibiotics. Lab work was done and she was found to have a critical calcium of 5.9, creatinine of 2.7 and hemoglobin 7.6. Patient refused to be hospitalized and was instructed to follow-up with her PCP. Patient returned on February 27 and she states the Dr. Haq called her and told her to come in the hospital for evaluation. Patient has denied any nausea vomiting or diarrhea no black stools she does complain of generalized weakness to her bilateral lower extremities secondary to MS and a previous stroke. She complains of feeling tired. She does have healing wounds to the left lower extremity but no signs of infection. She is complaining at this time of abdominal pain to the low area and towards the back. Repeat lab work showed hemoglobin of 7.1, creatinine 1.9, potassium 2.8, chloride 117, CO2 12, magnesium was undetectable. Patient was given a fluid bolus, calcium, potassium and magnesium replacements, Nexium was discontinued and patient placed on Pepcid. Consult requested with nephrology and GI. Patient had a line placed in the right IJ by the ER physician. 03/01: Patient seen today on morning rounds. GI consult appreciated, no plans on endoscopic exams at this time. Nephrology on consult, recommends to change IV fluids to oral Bicarb, start procrit, and remain off all NSAIDs. Hemoglobin is stable at 7.8, potassium is 4.0, Mag 2.0 today after supplementation, kidney function has improved Cr 1.48, BUN 8, calcium 7.0. Chest xray shows no acute process, echocardiogram shows ejection fraction greater than 55%, mild mitral regurgitation and mild tricuspid regurgitation, renal ultrasound shows no definite hydronephrosis or nephrolithiasis. She will be discharged home with follow up with GI and nephrology. She has appointment already scheduled for tomorrow at 1pm with Dr. Lemos to have bone marrow biopsy scheduled as outpatient. Discharge Diagnoses: 1. Electrolyte abnormalities with hypocalcemia, hypomagnesemia, hypochloremia, hypokalemia, status post replacement. 2. Acute kidney injury with chronic kidney disease stage III with metabolic acidosis. 3. Acute anemia status post transfusion 1 unit of packed RBCs 4. Hypomagnesemia most likely secondary to PPI use 5. Recent Bite to the left lower extremity initially treated in the ER and placed on clindamycin and ciprofloxacin. 6. Generalized anxiety disorder and recurrent depression. 7. Vitamin D deficiency. 8. Gastroesophageal reflux disease. 9. Chronic pain. The above impression and plan of care have been discussed and directed by signing physician. Alejandra Jacques nurse practitioner acting as scribe for signing physician. Patient Condition at Discharge: Good Plan - Discharge Summary New Discharge Prescriptions: New Sodium Bicarbonate Tab 325 mg PO BID #60 tablet Continue QUEtiapine [SEROquel] 50 mg PO HS Gabapentin [Neurontin] 300 mg PO TID Carisoprodol [Soma] 350 mg PO HS Magnesium Oxide [Mag-Ox] 400 mg PO BID Folic Acid 1 mg PO DAILY Ergocalciferol [Vitamin D2 (DRISDOL)] 50,000 unit PO MO DULoxetine HCL [Cymbalta] 60 mg PO DAILY traZODone HCL 150 mg PO HS Carisoprodol [Soma] 350 mg PO HS ALPRAZolam [Xanax] 0.25 mg PO BID PRN PRN Reason: Anxiety Potassium Chloride ER [K-Dur 20] 40 meq PO BID Tobra-Dexamet 0.3-0.1% Eye Vani [Tobradex Ophth Susp] 2 drops BOTH EYES Q6H Discontinued Diphenoxylate HCl/Atropine [Lomotil] 1 tab PO TID Esomeprazole Magnesium [NexIUM] 20 mg PO DAILY Ibuprofen [Advil] 200 mg PO Q6HR PRN PRN Reason: Pain Discharge Medication List Carisoprodol [Soma] 350 mg PO HS 04/14/15 [History] Gabapentin [Neurontin] 300 mg PO TID 04/14/15 [History] QUEtiapine [SEROquel] 50 mg PO HS 04/14/15 [History] DULoxetine HCL [Cymbalta] 60 mg PO DAILY 05/24/17 [History] Ergocalciferol [Vitamin D2 (DRISDOL)] 50,000 unit PO MO 05/24/17 [History] Folic Acid 1 mg PO DAILY 05/24/17 [History] Magnesium Oxide [Mag-Ox] 400 mg PO BID 05/24/17 [History] ALPRAZolam [Xanax] 0.25 mg PO BID PRN 02/27/18 [History] Carisoprodol [Soma] 350 mg PO HS 02/27/18 [History] Potassium Chloride ER [K-Dur 20] 40 meq PO BID 02/27/18 [History] Tobra-Dexamet 0.3-0.1% Eye Vani [Tobradex Ophth Susp] 2 drops BOTH EYES Q6H 02/27 [History] traZODone HCL 150 mg PO HS 02/27/18 [History] Sodium Bicarbonate Tab 325 mg PO BID #60 tablet 03/01/18 [Rx] Follow up Appointment(s)/Referral(s): Norman Lemos MD [STAFF PHYSICIAN] - 1 Week (Unable to get through at this time. Please call to schedule appointment) Justina Henderson MD [STAFF PHYSICIAN] - 1 Week (Spoke to veterinary receptionist. Office to call with appointment time.) Meseret Haq MD [Primary Care Provider] - 03/08/18 11:00 am ( with MICHAEL Roberts) Patient Instructions/Handouts: Hypokalemia (DC), Hypocalcemia (DC) Activity/Diet/Wound Care/Special Instructions: Labs in three days Discharge Disposition: HOME SELF-CARE
[2018-03-01] MEDS: ALPRAZolam 0.25 MG TAB PO PRN (11:41)
[2018-03-01] MEDS: FOLIC ACID 1 MG TAB PO SCH (11:41)
[2018-03-01 12:49] VITALS: BP 133/64; PULSE 68; TEMP 97.7
== END 2018-03-01 13:35 | disposition home or self-care (01) | DRG 683 ==
LOC: EC 14:17 → 6SEL 18:52
PROVIDERS: ADMIT Internal Medicine; ATTEND Internal Medicine
PROC: 02HV33Z Insertion of Infusion Device into Superior Vena Cava, Percutaneous Approach (ICD-10-PCS; 2018-02-27)
PROC: 30263N1 (ICD-10-PCS; principal; 2018-02-28)
DX: N17.9 Acute kidney failure, unspecified (principal); E87.2 Acidosis; F33.9 Major depressive disorder, recurrent, unspecified; K91.2 Postsurgical malabsorption, not elsewhere classified; F11.20 Opioid dependence, uncomplicated; E87.8 Other disorders of electrolyte and fluid balance, not elsewhere classified; E83.51 Hypocalcemia; E83.42 Hypomagnesemia; G35 Multiple sclerosis; D53.9 Nutritional anemia, unspecified; E55.9 Vitamin D deficiency, unspecified; E87.6 Hypokalemia; F17.210 Nicotine dependence, cigarettes, uncomplicated; F41.1 Generalized anxiety disorder; G89.29 Other chronic pain; I12.9 Hypertensive chronic kidney disease with stage 1 through stage 4 chronic kidney disease, or unspecified chronic kidney disease; K21.9 Gastro-esophageal reflux disease without esophagitis; M79.7 Fibromyalgia; N18.3 Chronic kidney disease, stage 3 (moderate); E53.8 Deficiency of other specified B group vitamins; I95.9 Hypotension, unspecified; T39.395A Adverse effect of other nonsteroidal anti-inflammatory drugs [NSAID], initial encounter; T47.1X5A Adverse effect of other antacids and anti-gastric-secretion drugs, initial encounter; Z87.11 Personal history of peptic ulcer disease; Z86.73 Personal history of transient ischemic attack (TIA), and cerebral infarction without residual deficits; Z85.068 Personal history of other malignant neoplasm of small intestine; Z85.028 Personal history of other malignant neoplasm of stomach; Z79.899 Other long term (current) drug therapy; Z88.6 Allergy status to analgesic agent; Z88.1 Allergy status to other antibiotic agents; Z88.0 Allergy status to penicillin; Z88.2 Allergy status to sulfonamides; Z88.8 Allergy status to other drugs, medicaments and biological substances; Z90.49 Acquired absence of other specified parts of digestive tract; Z83.3 Family history of diabetes mellitus; Z82.5 Family history of asthma and other chronic lower respiratory diseases; Z82.49 Family history of ischemic heart disease and other diseases of the circulatory system; Y92.009 Unspecified place in unspecified non-institutional (private) residence as the place of occurrence of the external cause
CPT/HCPCS: 36415; 36556; 71045; 76770; 80048; 80053; 81003; 82306; 82607; 82728; 83540; 83550; 83735; 83970; 84100; 84466; 85025; 86850; 86900; 86901; 86920; 93005; 93306; 96365; 96368; 96375; 99285

== ENCOUNTER → 2018-03-16 | Outpatient (CLI) | payer MEDICARE, OTHER ==
[2018-03-16 13:58] LABS: Potassium 4.2 mmol/L (3.5-5.1)
== END | disposition home or self-care (01) ==
LOC: LABWHC1 12:25
PROVIDERS: ATTEND Internal Medicine Nephrology
DX: N17.9 Acute kidney failure, unspecified (principal)
CPT/HCPCS: 36415; 80048; 83735

== ENCOUNTER → 2018-04-20 | Outpatient (CLI) | payer MEDICARE, OTHER ==
--- NOTE | 2018-04-20 17:16 | CT ---
EXAMINATION TYPE: CT abdomen pelvis wo con DATE OF EXAM: 04/20/2018 COMPARISON: 09/05/2016 INDICATION: Patient complains of diarrhea. DLP: 405 mGycm, Automated exposure control for dose reduction was used. CONTRAST: 0 mL of Isovue 300. Study performed with Oral Contrast TECHNIQUE: Axial images were obtained from above the diaphragm to the pubic rami in the axial plane a t 5 mm thick sections. Reconstructed images are reviewed on the computer in the coronal plane. FINDINGS: Limited CT sections are obtained the lung bases. The lung bases are clear. CT ABDOMEN: Liver: Normal Spleen: Normal Pancreas: Atrophic Adrenal glands: The adrenal glands are normal. Gallbladder: Normal Kidneys: No masses are evident. No hydronephrosis is present. No cysts are present. No renal stone s are evident. Aorta: Vascular calcification is within the aorta. Inferior vena cava: Normal. CT PELVIS: There are dilated small bowel loops within the midabdomen. Oral contrast passes from the stomach thro ugh dilated loops of jejunum into the midabdomen which appears to have thickened bowel wall. Contrast does extend to the rectum. Correlate with the patient's surgical history in relation to the bowel. T here appears to be a loop of small bowel with thickened wall and irregular lumen in the midabdomen. T his best visualized on the coronal plane images series 5 image 23. Differential diagnosis could inclu de thickened bowel wall from inflammatory change. Neoplasm should be considered. Appendix: Not visualized Urinary bladder: Decompressed and not evaluated. No catheter is identified. Urinary bladder appears c ompletely decompressed the time of this examination. No urinary retention is identified. Genitourinary structures: Uterus and ovaries are absent. Osseous structures: No suspicious lytic or sclerotic lesions. There is prior right hip repair and pos tsurgical changes are within the lower lumbar spine. IMPRESSIONS: 1. There appears to be thickened small bowel with dilated proximal jejunum without complete obstruct ion and contrast extending to the level the rectum. Additional workup and correlation with the patien t's clinical symptoms for mid abdominal small bowel abnormality.
== END ==
LOC: RADCTMAIN 12:51
PROVIDERS: ATTEND Internal Medicine
DX: R33.9 Retention of urine, unspecified (principal)
CPT/HCPCS: 74176

== ENCOUNTER → 2018-05-02 | Outpatient (CLI) | payer MEDICARE, OTHER ==
--- NOTE | 2018-05-03 13:21 | MM ---
Reason for exam: screening (asymptomatic). Last mammogram was performed 1 year and 4 months ago. History: Patient is postmenopausal and has history of other cancer at age 30. Family history of breast cancer in aunt at age 60. Took estrogen for 12 years 1 month beginning at age 38. Physical Findings: A clinical breast exam by your physician is recommended on an annual basis and results should be correlated with mammographic findings. MG 3D Screening Mammo W/Cad Bilateral CC and MLO view(s) were taken. Prior study comparison: December 19, 2016, bilateral MG screening mammo w CAD. December 16, 2015, bilateral MG 3d diag mammo w/cad KODI. The breast tissue is heterogeneously dense. This may lower the sensitivity of mammography. No significant changes when compared with prior studies. ASSESSMENT: Benign, BI-RAD 2 RECOMMENDATION: Routine screening mammogram of both breasts in 1 year.
== END | disposition home or self-care (01) ==
LOC: RADMAMWWP 13:44
PROVIDERS: ATTEND Internal Medicine
DX: Z12.31 Encounter for screening mammogram for malignant neoplasm of breast (principal)
CPT/HCPCS: 77063; 77067

== ENCOUNTER → 2018-07-06 | Outpatient (CLI) | payer MEDICARE, OTHER ==
[2018-07-06 09:31] LABS: HCT 25.1 % (34.0-46.0); HGB 7.7 gm/dL (11.4-16.0); Hypochromasia Marked; MCHC 30.8 g/dL (31.0-37.0); MCV 107.4 fL (80.0-100.0); Macrocytosis Moderate; Mean Platelet Volume 6.7; Platelet Count 246 k/uL (150-450); RBC 2.34 m/uL (3.80-5.40); RDW 14.1 % (11.5-15.5); WBC 6.5 k/uL (3.8-10.6)
[2018-07-06 18:31] LABS: Anion Gap 6.9 mmol/L (4.00-12.00); Calcium 8.6 mg/dL (8.7-10.3); Carbon Dioxide 23.1 mmol/L (21.6-31.8)
[2018-07-10 08:26] LABS: Potassium 6.1 mmol/L (3.5-5.5)
== END ==
LOC: LABWHC1 08:24
PROVIDERS: ATTEND Internal Medicine Hematology & Oncology
DX: D60.9 Acquired pure red cell aplasia, unspecified (principal)
CPT/HCPCS: 36415; 80048; 85027

== ENCOUNTER → 2018-07-09 | Outpatient (CLI) | payer MEDICARE, OTHER ==
[2018-07-09 15:44] LABS: Basophils % (A) 0 %; Eosinophils # (A) 0.1 k/uL (0-0.7); Eosinophils % (A) 2 %; HCT 25.1 % (34.0-46.0); HGB 7.5 gm/dL (11.4-16.0); Hypochromasia Moderate; Lymphocytes # (A) 1.1 k/uL (1.0-4.8); Lymphocytes % (A) 20 %; MCH 32.1 pg (25.0-35.0); MCV 106.9 fL (80.0-100.0); Macrocytosis Moderate; Mean Platelet Volume 6.7; Monocytes # (A) 0.3 k/uL (0-1.0); Monocytes % (A) 6 %; Neutrophils # (A) 3.9 k/uL (1.3-7.7); Neutrophils % (A) 71 %; Platelet Count 233 k/uL (150-450); RBC 2.35 m/uL (3.80-5.40); RDW 13.7 % (11.5-15.5); WBC 5.5 k/uL (3.8-10.6)
[2018-07-10 04:47] LABS: Anion Gap 6.5 mmol/L (4.00-12.00); Calcium 8.9 mg/dL (8.7-10.3); Carbon Dioxide 23.5 mmol/L (21.6-31.8)
[2018-07-11 08:02] LABS: Potassium 6.8 mmol/L (3.5-5.5)
== END | disposition home or self-care (01) ==
LOC: LABWHC1 14:59
PROVIDERS: ATTEND Internal Medicine
DX: E87.5 Hyperkalemia (principal)
CPT/HCPCS: 36415; 80048; 85025

== ENCOUNTER 2018-07-10 11:34 | Inpatient (IN) | payer MEDICARE, OTHER ==
[2018-07-10] MEDS ORDERED: SODIUM CHLORIDE 0.9% 1,000 ML IV STA (11:57)
[2018-07-10 12:35] LABS: Basophils % (A) 0 %; Eosinophils # (A) 0.1 k/uL (0-0.7); Eosinophils % (A) 2 %; HCT 29.7 % (34.0-46.0); Hypochromasia Slight; Lymphocytes # (A) 1.2 k/uL (1.0-4.8); Lymphocytes % (A) 20 %; MCH 32.5 pg (25.0-35.0); MCHC 30.9 g/dL (31.0-37.0); MCV 105.3 fL (80.0-100.0); Macrocytosis Slight; Mean Platelet Volume 6.8; Monocytes # (A) 0.3 k/uL (0-1.0); Monocytes % (A) 5 %; Neutrophils # (A) 4.4 k/uL (1.3-7.7); Neutrophils % (A) 71 %; Platelet Count 243 k/uL (150-450); RBC 2.83 m/uL (3.80-5.40); RDW 13.4 % (11.5-15.5); WBC 6.2 k/uL (3.8-10.6)
[2018-07-10 12:38] LABS: HGB 9.2 gm/dL (11.4-16.0)
[2018-07-10 12:40] LABS: Albumin 3.5 g/dL (3.5-5.0); Calcium 9.1 mg/dL (8.4-10.2); Magnesium 1.7 mg/dL (1.6-2.3); Total Bilirubin 0.4 mg/dL (0.2-1.3); Total Protein 5.9 g/dL (6.3-8.2)
[2018-07-10 12:50] LABS: Potassium 6.9 mmol/L (3.5-5.1)
[2018-07-10] MEDS ORDERED: ALBUTEROL NEB (CONC) 2.5 MG/0.5 ML INHALATION ONE (13:04)
[2018-07-10] MEDS ORDERED: SODIUM POLYSTYRENE SULFONATE 15 GM/60 ML BOTTLE PO ONE (13:04)
[2018-07-10 13:05] LABS: Amylase 46 U/L (30-110); Lipase 40 U/L (23-300)
--- NOTE | 2018-07-10 13:15 | XR ---
EXAMINATION TYPE: XR chest 2V DATE OF EXAM: 07/10/2018 COMPARISON: 02/27/2018 HISTORY: COPD. Abnormal laboratory values. TECHNIQUE: Frontal and lateral views of the chest are obtained. FINDINGS: There is no focal air space opacity, pleural effusion, or pneumothorax seen. There is pul monary hyperinflation. Very minimal grade basilar atelectasis is seen near the costophrenic angle on both the frontal and lateral views. The cardiac silhouette size is mildly enlarged. The osseous str uctures are intact. Mild multilevel degenerative changes of the spine are noted. IMPRESSION: Minimal right basilar subsegmental atelectasis otherwise no acute cardiopulmonary proces s.
[2018-07-10] MEDS ORDERED: SODIUM CHLORIDE 0.9% NEBULIZ 3 ML INHALATION STA (13:29)
[2018-07-10] MEDS ORDERED: MORPHINE SULFATE 4 MG/ML SYRINGE IVP STA (13:38)
[2018-07-10] MEDS: INSULIN REGULAR 100 UNIT/ML VIAL IV ONE ×2 (13:59→14:25)
[2018-07-10] MEDS: CALCIUM CHLORIDE 1,000 MG in SODIUM CHLORIDE 0.9% 100 ML IV ONE ×2 (14:02→14:31)
[2018-07-10] MEDS: DEXTROSE 50%-WATER 50 ML SYRINGE IVP ONE ×2 (14:02→14:23)
[2018-07-10] MEDS: SODIUM BICARB 8.4% 50 ML SYR (1 MEQ/ML) IV ONE ×2 (14:02→14:26)
--- NOTE | 2018-07-10 14:41 | ED ---
General Adult HPI - General Chief complaint: Recheck/Abnormal Lab/Rx Stated complaint: abn labs Time Seen by Provider: 07/10/18 11:56 Source: patient, RN notes reviewed Mode of arrival: wheelchair Limitations: no limitations - History of Present Illness Initial comments: 62 year old female with a PMH of Lupus, TIA, fibromyalgia presents to the emergency department for a cheif complaint of hyperkalemia. Patient states she had her blood drawn yesterday and it was high. Patient states she received a call from her doctor today telling her to come to the emergency department. Patient states she generally is hypokalemic. She states about a month ago her prescription for potassium was doubled from 2 times per day to 4 times per day. Patient denies any chest pain shortness of breath dizziness. Patient states she is feeling her normal self. Patient has no other complaints at this time including shortness of breath, chest pain, abdominal pain, nausea or vomiting, headache, or visual changes. - Related Data Home Medications Medication Instructions Recorded Confirmed Gabapentin [Neurontin] 300 mg PO TID 04/14/15 07/10/18 DULoxetine HCL [Cymbalta] 60 mg PO DAILY 05/24/17 07/10/18 Ergocalciferol [Vitamin D2 50,000 unit PO MO 05/24/17 07/10/18 (DRISDOL)] Folic Acid 1 mg PO DAILY 05/24/17 07/10/18 Magnesium Oxide [Mag-Ox] 400 mg PO BID 05/24/17 07/10/18 Carisoprodol [Soma] 350 mg PO HS 02/27/18 07/10/18 Potassium Chloride ER [K-Dur 20] 40 meq PO BID 02/27/18 07/10/18 traZODone HCL 150 mg PO HS 02/27/18 07/10/18 ALPRAZolam [Xanax] 0.5 mg PO BID 07/10/18 07/10/18 Dicyclomine [Bentyl] 20 mg PO BID 07/10/18 07/10/18 Diphenox-Atrop 2.5-0.025 mg 1 tab PO TID 07/10/18 07/10/18 [Lomotil] Loteprednol Etabonate [Lotemax] 1 drop BOTH EYES BID 07/10/18 07/10/18 Olopatadine HCl [Pataday] 1 drop BOTH EYES BID 07/10/18 07/10/18 Sodium Bicarbonate 325 mg PO BID 07/10/18 07/10/18 Allergies Allergy/AdvReac Type Severity Reaction Status Date / Time alcohol Allergy Unknown Verified 07/10/18 12:23 aspirin Allergy Unknown Verified 07/10/18 12:23 divalproex sodium Allergy Unknown Verified 07/10/18 12:23 [From Depakote] erythromycin base Allergy Unknown Verified 07/10/18 12:23 ketorolac [From Toradol] Allergy Unknown Verified 07/10/18 12:23 Penicillins Allergy Unknown Verified 07/10/18 12:23 shellfish derived [Shellfish] Allergy Unknown Verified 07/10/18 12:23 strawberry Allergy Unknown Verified 07/10/18 12:23 Sulfa (Sulfonamide Allergy Unknown Verified 07/10/18 12:23 Antibiotics) Review of Systems ROS Statement: Those systems with pertinent positive or pertinent negative responses have been documented in the HPI. ROS Other: All systems not noted in ROS Statement are negative. Past Medical History Past Medical History: Cancer, CVA/TIA, Fibromyalgia Additional Past Medical History / Comment(s): Lupus, TIA, right hand tendons severed, closed head injury, multiple sclerosis History of Any Multi-Drug Resistant Organisms: None Reported Past Surgical History: Appendectomy, Back Surgery, Section, Orthopedic Surgery Additional Past Surgical History / Comment(s): stomach cancer Past Anesthesia/Blood Transfusion Reactions: No Reported Reaction Past Psychological History: No Psychological Hx Reported Smoking Status: Current every day smoker Past Alcohol Use History: None Reported Past Drug Use History: None Reported - Past Family History Father Additional Family Medical History / Comment(s): Father is alive with history of diabetes and stomach problems. Mother Additional Family Medical History / Comment(s): Mother has history of diabetes, coronary artery disease and COPD. Sister(s) Additional Family Medical History / Comment(s): Patient has sisters all have female problems. She does state there is breast cancer history in her aunt. Son(s) Additional Family Medical History / Comment(s): Patient has one son with no major medical problems. General Exam Limitations: no limitations General appearance: alert, in no apparent distress Head exam: Present: atraumatic, normocephalic, normal inspection Eye exam: Present: normal appearance, PERRL, EOMI. Absent: scleral icterus, conjunctival injection, periorbital swelling ENT exam: Present: normal exam, mucous membranes moist Neck exam: Present: normal inspection, full ROM. Absent: tenderness, meningismus, lymphadenopathy Respiratory exam: Present: normal lung sounds bilaterally. Absent: respiratory distress, wheezes, rales, rhonchi, stridor Cardiovascular Exam: Present: regular rate, normal rhythm, normal heart sounds. Absent: systolic murmur, diastolic murmur, rubs, gallop, clicks GI/Abdominal exam: Present: soft, normal bowel sounds. Absent: distended, tenderness, guarding, rebound, rigid Neurological exam: Present: alert, oriented X3, CN II-XII intact Psychiatric exam: Present: normal affect, normal mood Course Vital Signs 07/10/18 07/10/18 07/10/18 11:47 13:43 13:56 Temperature 98.6 F Pulse Rate 67 67 68 Respiratory 18 Rate Blood Pressure 131/73 O2 Sat by Pulse 99 Oximetry EKG Findings - EKG Comments: EKG Findings:: Sinus bradycardia, ventricular rate 59, RI interval 158, QTC 411 , no evidence of hyperacute T waves, QT prolongation, ST elevation or depression. Medical Decision Making - Medical Decision Making 62-year-old female presents to the emergency department for abnormal labs. Patient states she has a high potassium level. She usually has a low potassium and dose was increased to 4 times per day. Patient denies any symptoms. EKG does show sinus bradycardia with a ventricular rate of 59, and no hyperacute T waves or QT prolongation, no significant EKG changes. Potassium yesterday was 6.8. Repeat today in the emergency department was 6.9. Creatinine 1.47 which is patient's baseline. She may have hyperkalemia due to medication. Patient was given albuterol, Kayexalate, calcium, sodium bicarb, insulin. Repeat will be drawn. Patient will be admitted for further management. - Lab Data Result diagrams: 07/10/18 12:15 07/10/18 12:15 Lab Results 07/10/18 07/10/18 07/10/18 Range/Units 12:15 12:15 12:15 WBC 6.2 (3.8-10.6) k/uL RBC 2.83 L (3.80-5.40) m/uL Hgb 9.2 L D (11.4-16.0) gm/dL Hct 29.7 L (34.0-46.0) % MCV 105.3 H (80.0-100.0) fL MCH 32.5 (25.0-35.0) pg MCHC 30.9 L (31.0-37.0) g/dL RDW 13.4 (11.5-15.5) % Plt Count 243 (150-450) k/uL Neutrophils % 71 % Lymphocytes % 20 % Monocytes % 5 % Eosinophils % 2 % Basophils % 0 % Neutrophils # 4.4 (1.3-7.7) k/uL Lymphocytes # 1.2 (1.0-4.8) k/uL Monocytes # 0.3 (0-1.0) k/uL Eosinophils # 0.1 (0-0.7) k/uL Basophils # 0.0 (0-0.2) k/uL Hypochromasia Slight Macrocytosis Slight Sodium 139 (137-145) mmol/L Potassium 6.9 H* (3.5-5.1) mmol/L Chloride 110 H (98-107) mmol/L Carbon Dioxide 24 (22-30) mmol/L Anion Gap 5 mmol/L BUN 14 (7-17) mg/dL Creatinine 1.47 H (0.52-1.04) mg/dL Est GFR (CKD-EPI)AfAm 43 (>60 ml/min/1.73 sqM) Est GFR (CKD-EPI)NonAf 37 (>60 ml/min/1.73 sqM) Glucose 84 (74-99) mg/dL Calcium 9.1 (8.4-10.2) mg/dL Magnesium 1.7 (1.6-2.3) mg/dL Total Bilirubin 0.4 (0.2-1.3) mg/dL AST 22 (14-36) U/L ALT 29 (9-52) U/L Alkaline Phosphatase 95 (38-126) U/L NT-Pro-B Natriuret Pep 589 pg/mL Total Protein 5.9 L (6.3-8.2) g/dL Albumin 3.5 (3.5-5.0) g/dL Amylase (30-110) U/L Lipase (23-300) U/L 07/10/18 Range/Units 12:15 WBC (3.8-10.6) k/uL RBC (3.80-5.40) m/uL Hgb (11.4-16.0) gm/dL Hct (34.0-46.0) % MCV (80.0-100.0) fL MCH (25.0-35.0) pg MCHC (31.0-37.0) g/dL RDW (11.5-15.5) % Plt Count (150-450) k/uL Neutrophils % % Lymphocytes % % Monocytes % % Eosinophils % % Basophils % % Neutrophils # (1.3-7.7) k/uL Lymphocytes # (1.0-4.8) k/uL Monocytes # (0-1.0) k/uL Eosinophils # (0-0.7) k/uL Basophils # (0-0.2) k/uL Hypochromasia Macrocytosis Sodium (137-145) mmol/L Potassium (3.5-5.1) mmol/L Chloride (98-107) mmol/L Carbon Dioxide (22-30) mmol/L Anion Gap mmol/L BUN (7-17) mg/dL Creatinine (0.52-1.04) mg/dL Est GFR (CKD-EPI)AfAm (>60 ml/min/1.73 sqM) Est GFR (CKD-EPI)NonAf (>60 ml/min/1.73 sqM) Glucose (74-99) mg/dL Calcium (8.4-10.2) mg/dL Magnesium (1.6-2.3) mg/dL Total Bilirubin (0.2-1.3) mg/dL AST (14-36) U/L ALT (9-52) U/L Alkaline Phosphatase (38-126) U/L NT-Pro-B Natriuret Pep pg/mL Total Protein (6.3-8.2) g/dL Albumin (3.5-5.0) g/dL Amylase 46 (30-110) U/L Lipase 40 (23-300) U/L Disposition Clinical Impression: Hyperkalemia Disposition: ADMITTED IP TO THIS HOSP Condition: Good Is patient prescribed a controlled substance at d/c from ED?: No Referrals: Meseret Haq MD [Primary Care Provider] - 1-2 days Time of Disposition: 14:41
[2018-07-10] MEDS ORDERED: ONDANSETRON 4 MG/2 ML VIAL IVP PRN (14:42)
[2018-07-10] MEDS ORDERED: NALOXONE 0.4 MG/ML 1 ML VIAL IV PRN (14:42)
--- NOTE | 2018-07-10 14:46 | P.HPIM ---
History of Present Illness H&P Date: 07/10/18 Chief Complaint: Abnormal labs, hyperkalemia This is a 62-year-old pleasant lady patient of Dr. Haq underlying history off TIA, chronic pain, lupus multiple sclerosis fibromyalgia, she also has severe hypokalemia and secondary hypomagnesemia nonoliguric kidney failure admitted through the emergency room secondary to abnormal labs. Her potassium was 6.9. she was subsequently seen in the emergency room and was admitted to manage the hyperkalemia. 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 she has stomach cancer , [address] sandhu chronically without relapse per pt, shce is scheduled to have MRCP anytime soon as OP. She has chronic anemia, hemoglobin of 7-8, requires intermittent blood transfusion, patient denies any palpitations or chest pain, she was seen by nephrology Carla her last admission in February 2018, for postop possibility off tubular disorder leading to renal wasting, she was started on sodium bicarb at that time as well as some admission oxide the last comparable lab was in February 2018 with potassium of 4.0 creatinine of 1.07. Admitting lab was potassium of 6.9, creatinine of 1.47 admission normal at 1.7. Review of Systems Constitutional: Reports as per HPI, Reports lethargy, Reports malaise, Denies anorexia, Denies chills, Denies chronic headaches, Denies chronic pain, Denies daytime sleepiness, Denies fatigue, Denies fever, Denies night sweats, Denies poor appetite, Denies sweats, Denies weakness, Denies weight gain, Denies weight loss Ears, nose, mouth and throat: Reports as per HPI, Denies ant. neck pain, Denies bleeding gums, Denies dental pain, Denies dysphagia, Denies epistaxis, Denies headache, Denies hoarseness, Denies mouth pain, Denies nasal congestion, Denies nasal discharge, Denies neck fullness/pressure, Denies neck lump, Denies nose pain, Denies odynophagia, Denies post-nasal drip, Denies sinus pain, Denies sinus pressure, Denies swelling in mouth, Denies swelling in throat, Denies sore throat, Denies vertigo, Denies voice changes Neurological: Reports as per HPI, Denies aphasia, Denies ataxia, Denies balance difficulties, Denies burning pain, Denies change in mentation, Denies change in smell/taste, Denies change in speech, Denies confusion, Denies convulsions, Denies double vision, Denies gait dysfunction, Denies head injury, Denies headaches, Denies hearing difficulties, Denies lack of coordination, Denies loss of vision, Denies memory loss, Denies migraines, Denies motor disturbance, Denies numbness, Denies paralysis, Denies paresthesias, Denies seizures, Denies sensory deficit, Denies spasticity, Denies syncope, Denies tic, Denies tingling , Denies transient paralysis, Denies tremors, Denies vertigo, Denies weakness, Denies visual changes Psychiatric: Reports as per HPI, Denies anhedonia, Denies anxiety, Denies anxiety attacks, Denies change in appetite, Denies change in libido, Denies change in sleep habits, Denies confusion, Denies depression, Denies difficulty concentrating, Denies disorientation, Denies hallucinations, Denies hopelessness , Denies hypersomnia, Denies insomnia, Denies irritability, Denies memory loss, Denies mood swings, Denies paranoia, Denies sadness/tearfulness, Denies sleep disturbances, Denies suicidal ideation Endocrine: Reports as per HPI, Denies cold intolerance, Denies deepening of the voice, Denies excessive sweating, Denies excessive thirst, Denies fatigue, Denies flushing, Denies heat intolerance, Denies high blood sugars, Denies increase in ring/shoe/hat size, Denies low blood sugars, Denies nocturia, Denies palpitations, Denies polydipsia, Denies polyphagia, Denies polyuria, Denies proptosis, Denies recent glucocorticoid use, Denies thyroid mass, Denies weight change Hematologic/Lymphatic: Reports as per HPI, Denies easy bleeding, Denies easy bruising, Denies lymphadenopathy, Denies lymphedema, Denies thrombophilia Past Medical History Past Medical History: Cancer, CVA/TIA, Fibromyalgia Additional Past Medical History / Comment(s): Lupus, TIA, right hand tendons severed, closed head injury, multiple sclerosis History of Any Multi-Drug Resistant Organisms: None Reported Past Surgical History: Appendectomy, Back Surgery, Section, Orthopedic Surgery Additional Past Surgical History / Comment(s): stomach cancer Past Anesthesia/Blood Transfusion Reactions: No Reported Reaction Past Psychological History: No Psychological Hx Reported Smoking Status: Current every day smoker Past Alcohol Use History: None Reported Past Drug Use History: None Reported - Past Family History Father Additional Family Medical History / Comment(s): Father is alive with history of diabetes and stomach problems. Mother Additional Family Medical History / Comment(s): Mother has history of diabetes, coronary artery disease and COPD. Sister(s) Additional Family Medical History / Comment(s): Patient has sisters all have female problems. She does state there is breast cancer history in her aunt. Son(s) Additional Family Medical History / Comment(s): Patient has one son with no major medical problems. Medications and Allergies Home Medications Medication Instructions Recorded Confirmed Type Gabapentin [Neurontin] 300 mg PO TID 04/14/15 07/10/18 History DULoxetine HCL [Cymbalta] 60 mg PO DAILY 05/24/17 07/10/18 History Ergocalciferol [Vitamin D2 50,000 unit PO MO 05/24/17 07/10/18 History (DRISDOL)] Folic Acid 1 mg PO DAILY 05/24/17 07/10/18 History Magnesium Oxide [Mag-Ox] 400 mg PO BID 05/24/17 07/10/18 History Carisoprodol [Soma] 350 mg PO HS 02/27/18 07/10/18 History Potassium Chloride ER [K-Dur 20] 40 meq PO BID 02/27/18 07/10/18 History traZODone HCL 150 mg PO HS 02/27/18 07/10/18 History ALPRAZolam [Xanax] 0.5 mg PO BID 07/10/18 07/10/18 History Dicyclomine [Bentyl] 20 mg PO BID 07/10/18 07/10/18 History Diphenox-Atrop 2.5-0.025 mg 1 tab PO TID 07/10/18 07/10/18 History [Lomotil] Loteprednol Etabonate [Lotemax] 1 drop BOTH EYES BID 07/10/18 07/10/18 History Olopatadine HCl [Pataday] 1 drop BOTH EYES BID 07/10/18 07/10/18 History Sodium Bicarbonate 325 mg PO BID 07/10/18 07/10/18 History Allergies Allergy/AdvReac Type Severity Reaction Status Date / Time alcohol Allergy Unknown Verified 07/10/18 12:23 aspirin Allergy Unknown Verified 07/10/18 12:23 divalproex sodium Allergy Unknown Verified 07/10/18 12:23 [From Depakote] erythromycin base Allergy Unknown Verified 07/10/18 12:23 ketorolac [From Toradol] Allergy Unknown Verified 07/10/18 12:23 Penicillins Allergy Unknown Verified 07/10/18 12:23 shellfish derived [Shellfish] Allergy Unknown Verified 07/10/18 12:23 strawberry Allergy Unknown Verified 07/10/18 12:23 Sulfa (Sulfonamide Allergy Unknown Verified 07/10/18 12:23 Antibiotics) Physical Exam Vitals: Vital Signs Temp Pulse Resp BP Pulse Ox 07/10/18 13:56 68 07/10/18 13:43 67 07/10/18 11:47 98.6 F 67 18 131/73 99 Intake and Output 07/09/18 07/10/18 07/10/18 22:59 06:59 14:59 Other: Weight 53.07 kg - Constitutional General appearance: cooperative, no acute distress, thin - EENT Eyes: anicteric sclerae, EOMI, PERRLA ENT: NA/AT, normal oropharynx - Neck Neck: normal ROM - Respiratory Respiratory: bilateral: CTA, negative: diminished, dullness, rales, rhonchi, wheezing - Cardiovascular Rhythm: regular Heart sounds: normal: S1, S2 Abnormal Heart Sounds: no systolic murmur, no diastolic murmur, no rub, no S3 Gallop, no S4 Gallop, no click, no other - Gastrointestinal General gastrointestinal: decreased bowel sounds, normal bowel sounds, soft - Integumentary Integumentary: normal, normal turgor - Neurologic Neurologic: CNII-XII intact, focal deficits - Musculoskeletal Musculoskeletal: gait normal, strength equal bilaterally - Psychiatric Psychiatric: A&O x's 3, appropriate affect, intact judgment & insight Results CBC & Chem 7: 07/10/18 12:15 07/10/18 12:15 Labs: Abnormal Lab Results - Last 24 Hours (Table) 07/10/18 07/10/18 Range/Units 12:15 12:15 RBC 2.83 L (3.80-5.40) m/uL Hgb 9.2 L D (11.4-16.0) gm/dL Hct 29.7 L (34.0-46.0) % MCV 105.3 H (80.0-100.0) fL MCHC 30.9 L (31.0-37.0) g/dL Potassium 6.9 H* (3.5-5.1) mmol/L Chloride 110 H (98-107) mmol/L Creatinine 1.47 H (0.52-1.04) mg/dL Total Protein 5.9 L (6.3-8.2) g/dL Thrombosis Risk Factor Assmnt - DVT/VTE Prophylaxis DVT/VTE Prophylaxis: Low risk, early ambulation encouraged Assessment and Plan Plan: 1.electrolyte abnormalities hyperkalemia, with ongoing potassium supplementation secondary to chronic hypokalemia hypomagnesemia we'll going to decrease potassium supplementation after hyperkalemia has been resolved, hold off potassium for the next 48 hours IV for hydration, status post replacement. Continue to monitor closely and replace as needed. Check night monitor for changes possible echocardiogram 2. Acute kidney injury with chronic kidney disease stage III resolved for metabolic acidosis Consult with nephrology. Dr. Henderson started the patient on bicarb drip. Renal ultrasound ordered. 3. Anemia of chronic disease currently stable at 9.2, has new megalocytosis checked for RBC folate iron studies and vitamin B12 4. Hypomagnesemia most likely secondary to PPI use, Nexium discontinued. Resolved Patient placed on Pepcid. 5. Generalized anxiety disorder and recurrent depression. Continue Seroquel 50 mg at bedtime, trazodone 150 mg at bedtime. 6. Vitamin D deficiency. Patient started on vitamin D 2 50,000 units orally every 7 days. 7 Gastroesophageal reflux disease. Pepcid 20 mg IV twice daily. 9. Chronic pain. Continue Soma 350 mg at bedtime. 10. DVT prophylaxis. Heparin subcu. Patient will be admitted to the hospital for a minimum of 2 night stay.
[2018-07-10] MEDS ORDERED: traMADol 50 MG TAB PO PRN (14:50)
[2018-07-10] MEDS: DIPHENOX-ATROP 2.5-0.025 MG 1 EACH TAB PO SCH ×2 (16:50→20:01)
[2018-07-10] MEDS: SODIUM CHLORIDE 0.9% 1,000 ML IV SCH (16:50)
[2018-07-10] MEDS: GABAPENTIN 300 MG CAP PO SCH ×2 (17:36→20:02)
[2018-07-10] MEDS: MAGNESIUM OXIDE 400 MG TAB PO SCH (20:01)
[2018-07-10] MEDS: ALPRAZolam 0.5 MG TAB PO SCH (20:02)
[2018-07-10] MEDS: traZODone HCL 100 MG TAB PO SCH (20:02)
[2018-07-10] MEDS: SODIUM BICARBONATE TAB 650 MG TAB PO SCH (20:02)
[2018-07-10] MEDS: DICYCLOMINE 20 MG TAB PO SCH (20:03)
[2018-07-10] MEDS: prednisoLONE ACETATE 1% OPHTH DROPS 5 ML BTL BOTH EYES SCH (20:04)
[2018-07-10] MEDS: KETOTIFEN 0.025% OPHTH DROPS 5 ML BTL BOTH EYES SCH (20:04)
[2018-07-10] MEDS ORDERED: CARISOPRODOL 350 MG TAB PO SCH (21:00)
[2018-07-11] MEDS: SODIUM CHLORIDE 0.9% 1,000 ML IV SCH (04:35)
[2018-07-11 07:13] LABS: Calcium 8.2 mg/dL (8.4-10.2)
[2018-07-11 07:17] LABS: Basophils % (A) 0 %; Eosinophils # (A) 0.1 k/uL (0-0.7); Eosinophils % (A) 1 %; HCT 21.5 % (34.0-46.0); Hypochromasia Marked; Lymphocytes # (A) 1.3 k/uL (1.0-4.8); Lymphocytes % (A) 26 %; MCH 33.3 pg (25.0-35.0); MCHC 30.9 g/dL (31.0-37.0); MCV 107.9 fL (80.0-100.0); Macrocytosis Moderate; Mean Platelet Volume 7.6; Monocytes # (A) 0.3 k/uL (0-1.0); Monocytes % (A) 5 %; Neutrophils # (A) 3.3 k/uL (1.3-7.7); Neutrophils % (A) 67 %; Platelet Count 184 k/uL (150-450); RBC 1.99 m/uL (3.80-5.40); RDW 13.6 % (11.5-15.5)
[2018-07-11 07:24] LABS: HGB 6.6 gm/dL (11.4-16.0)
[2018-07-11 07:43] LABS: Potassium 5.2 mmol/L (3.5-5.1)
[2018-07-11 08:36] LABS: HCT 23.8 % (34.0-46.0); HGB 7.3 gm/dL (11.4-16.0); Hypochromasia Marked; MCH 33.2 pg (25.0-35.0); MCHC 30.8 g/dL (31.0-37.0); MCV 107.8 fL (80.0-100.0); Macrocytosis Moderate; Mean Platelet Volume 6.8; Platelet Count 200 k/uL (150-450); RBC 2.21 m/uL (3.80-5.40); RDW 13.4 % (11.5-15.5); WBC 5.4 k/uL (3.8-10.6)
[2018-07-11] MEDS: KETOTIFEN 0.025% OPHTH DROPS 5 ML BTL BOTH EYES SCH ×2 (09:03→21:00)
[2018-07-11] MEDS: DULoxetine HCL 60 MG CAPSULE.DR PO SCH (09:04)
[2018-07-11] MEDS: MAGNESIUM OXIDE 400 MG TAB PO SCH ×2 (09:04→20:59)
[2018-07-11] MEDS: ALPRAZolam 0.5 MG TAB PO SCH ×2 (09:04→21:00)
[2018-07-11] MEDS: GABAPENTIN 300 MG CAP PO SCH ×3 (09:04→21:00)
[2018-07-11] MEDS: DIPHENOX-ATROP 2.5-0.025 MG 1 EACH TAB PO SCH ×3 (09:04→21:00)
[2018-07-11] MEDS: DICYCLOMINE 20 MG TAB PO SCH ×2 (09:05→21:00)
[2018-07-11] MEDS: prednisoLONE ACETATE 1% OPHTH DROPS 5 ML BTL BOTH EYES SCH ×2 (09:05→21:01)
[2018-07-11] MEDS: FOLIC ACID 1 MG TAB PO SCH (09:05)
[2018-07-11] MEDS: SODIUM BICARBONATE TAB 650 MG TAB PO SCH ×2 (09:05→20:59)
--- NOTE | 2018-07-11 14:12 | P.PN ---
Subjective Progress Note Date: 07/11/18 This is a 62-year-old pleasant lady patient of Dr. Haq underlying history off TIA, chronic pain, lupus multiple sclerosis fibromyalgia, she also has severe hypokalemia and secondary hypomagnesemia nonoliguric kidney failure admitted through the emergency room secondary to abnormal labs. Her potassium was 6.9. she was subsequently seen in the emergency room and was admitted to manage the hyperkalemia. 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 she has stomach cancer , [address] sandhu chronically without relapse per pt, shce is scheduled to have MRCP anytime soon as OP. She has chronic anemia, hemoglobin of 7-8, requires intermittent blood transfusion, patient denies any palpitations or chest pain, she was seen by nephrology Carla her last admission in February 2018, for postop possibility off tubular disorder leading to renal wasting, she was started on sodium bicarb at that time as well as some admission oxide the last comparable lab was in February 2018 with potassium of 4.0 creatinine of 1.07. Admitting lab was potassium of 6.9, creatinine of 1.47 admission normal at 1.7. 07/11: Patient is complaining of headache from lack of sleep last night. She is requesting morphine. We will add in one small dose of morphine for this evening at bedtime only. Soma will be discontinued and patient started on Zanaflex. Patient is requesting to be no CODE STATUS. Patient has been afebrile, pulse ox 95% on room air, blood pressure 106/54 and heart rate running in the 60s and 70s. Repeat lab work this morning showed a hemoglobin of 6.6 and repeated was 7.3, BUN 16 creatinine 1.37, potassium now at 5.2. Iron studies ordered and patient may need one dose of Ferrlecit. Most likely patient will be ready for discharge tomorrow. Review of Systems Constitutional: Reports as per HPI, Reports lethargy, Reports malaise, Denies anorexia, Denies chills, Denies chronic headaches, Denies chronic pain, Denies daytime sleepiness, Denies fatigue, Denies fever, Denies night sweats, Denies poor appetite, Denies sweats, Denies weakness, Denies weight gain, Denies weight loss Ears, nose, mouth and throat: Reports as per HPI, Denies ant. neck pain, Denies bleeding gums, Denies dental pain, Denies dysphagia, Denies epistaxis, report headache, Denies hoarseness, Denies mouth pain, Denies nasal congestion, Denies nasal discharge, Denies neck fullness/pressure, Denies neck lump, Denies nose pain, Denies odynophagia, Denies post-nasal drip, Denies sinus pain, Denies sinus pressure, Denies swelling in mouth, Denies swelling in throat, Denies sore throat, Denies vertigo, Denies voice changes Neurological: Reports as per HPI, Denies aphasia, Denies ataxia, Denies balance difficulties, Denies burning pain, Denies change in mentation, Denies change in smell/taste, Denies change in speech, Denies confusion, Denies convulsions, Denies double vision, Denies gait dysfunction, Denies head injury, Denies headaches, Denies hearing difficulties, Denies lack of coordination, Denies loss of vision, Denies memory loss, Denies migraines, Denies motor disturbance, Denies numbness, Denies paralysis, Denies paresthesias, Denies seizures, Denies sensory deficit, Denies spasticity, Denies syncope, Denies tic, Denies tingling , Denies transient paralysis, Denies tremors, Denies vertigo, Denies weakness, Denies visual changes Psychiatric: Reports as per HPI, Denies anhedonia, Denies anxiety, Denies anxiety attacks, Denies change in appetite, Denies change in libido, Denies change in sleep habits, Denies confusion, Denies depression, Denies difficulty concentrating, Denies disorientation, Denies hallucinations, Denies hopelessness , Denies hypersomnia, Denies insomnia, Denies irritability, Denies memory loss, Denies mood swings, Denies paranoia, Denies sadness/tearfulness, Denies sleep disturbances, Denies suicidal ideation Endocrine: Reports as per HPI, Denies cold intolerance, Denies deepening of the voice, Denies excessive sweating, Denies excessive thirst, Denies fatigue, Denies flushing, Denies heat intolerance, Denies high blood sugars, Denies increase in ring/shoe/hat size, Denies low blood sugars, Denies nocturia, Denies palpitations, Denies polydipsia, Denies polyphagia, Denies polyuria, Denies proptosis, Denies recent glucocorticoid use, Denies thyroid mass, Denies weight change Hematologic/Lymphatic: Reports as per HPI, Denies easy bleeding, Denies easy bruising, Denies lymphadenopathy, Denies lymphedema, Denies thrombophilia Objective - Vital Signs Vital signs: Vital Signs Temp 97.6 F 07/11/18 08:00 Pulse 68 07/11/18 11:13 Resp 16 07/11/18 11:18 BP 106/54 07/11/18 11:13 Pulse Ox 95 07/11/18 11:13 Intake & Output 07/10/18 07/11/18 07/11/18 18:59 06:59 18:59 Intake Total 120 530 240 Balance 120 530 240 Weight 53.07 kg 53.8 kg Intake: Intake, IV Titration 450 Amount Sodium Chloride 0.9% 1, 450 000 ml @ 75 mls/hr IV . [id number] KATIE Rx#:[id number] Oral 120 80 240 Other: # Voids 1 2 1 - Exam General appearance: cooperative, no acute distress, thin, resting in bed - EENT Eyes: anicteric sclerae, EOMI, PERRLA ENT: NA/AT, normal oropharynx - Neck Neck: normal ROM - Respiratory Respiratory: bilateral: CTA, negative: diminished, dullness, rales, rhonchi, wheezing - Cardiovascular Rhythm: regular Heart sounds: normal: S1, S2 Abnormal Heart Sounds: no systolic murmur, no diastolic murmur, no rub, no S3 Gallop, no S4 Gallop, no click, no other - Gastrointestinal General gastrointestinal: decreased bowel sounds, normal bowel sounds, soft - Integumentary Integumentary: normal, normal turgor - Neurologic Neurologic: CNII-XII intact, focal deficits - Musculoskeletal Musculoskeletal: gait normal, strength equal bilaterally - Psychiatric Psychiatric: A&O x's 3, appropriate affect, intact judgment & insight - Labs CBC & Chem 7: 07/11/18 08:08 07/11/18 06:07 Labs: Abnormal Lab Results - Last 24 Hours (Table) 07/10/18 07/11/18 07/11/18 Range/Units 17:40 06:07 06:07 RBC 1.99 L (3.80-5.40) m/uL Hgb 6.6 L* D (11.4-16.0) gm/dL Hct 21.5 L (34.0-46.0) % MCV 107.9 H (80.0-100.0) fL MCHC 30.9 L (31.0-37.0) g/dL Potassium 5.5 H (3.5-5.1) mmol/L Chloride (98-107) mmol/L Creatinine (0.52-1.04) mg/dL Calcium (8.4-10.2) mg/dL Magnesium 1.5 L (1.6-2.3) mg/dL 07/11/18 07/11/18 Range/Units 06:07 08:08 RBC 2.21 L (3.80-5.40) m/uL Hgb 7.3 L (11.4-16.0) gm/dL Hct 23.8 L (34.0-46.0) % MCV 107.8 H (80.0-100.0) fL MCHC 30.8 L (31.0-37.0) g/dL Potassium 5.2 H (3.5-5.1) mmol/L Chloride 112 H (98-107) mmol/L Creatinine 1.37 H (0.52-1.04) mg/dL Calcium 8.2 L (8.4-10.2) mg/dL Magnesium (1.6-2.3) mg/dL Assessment and Plan Plan: 1.electrolyte abnormalities hyperkalemia, with ongoing potassium supplementation secondary to chronic hypokalemia hypomagnesemia we'll going to decrease potassium supplementation after hyperkalemia has been resolved, hold off potassium for the next 48 hours IV for hydration, status post replacement. Continue to monitor closely and replace as needed. Check retreader for changes possible echocardiogram 2. Chronic kidney disease stage III. 3. Anemia of chronic disease currently stable at 9.2, has new megalocytosis checked for RBC folate iron studies and vitamin B12. Iron studies ordered. Patient may require Ferrlecit infusion prior to discharge. 4. Hypomagnesemia most likely secondary to PPI use, Nexium discontinued. Resolved Patient placed on Pepcid. 5. Generalized anxiety disorder and recurrent depression. Continue Seroquel 50 mg at bedtime, trazodone 150 mg at bedtime. 6. Vitamin D deficiency. Patient started on vitamin D 2 50,000 units orally every 7 days. 7 Gastroesophageal reflux disease. Pepcid 20 mg IV twice daily. 8. Headache from insomnia. One dose of morphine ordered for that time tonight. Soma changed to Zanaflex. 9. Chronic pain. Continue Soma 350 mg at bedtime. 10. DVT prophylaxis. Heparin subcu. Discharge plan: Home tomorrow Impression and plan of care have been directed as dictated by the signing physician. Annalisa Delcid nurse practitioner acting as scribe for signing physician.
[2018-07-11] MEDS: ACETAMINOPHEN TAB 325 MG TAB PO PRN (16:13)
[2018-07-11 20:12] LABS: Iron Saturation 16.88 (12.00-45.00)
[2018-07-11] MEDS: tiZANidine 4 MG TAB PO SCH (20:59)
[2018-07-11] MEDS: traZODone HCL 100 MG TAB PO SCH (21:00)
[2018-07-11] MEDS ORDERED: MORPHINE SULFATE 2 MG/ML SYRINGE IVP SCH (21:00)
[2018-07-12 06:59] LABS: Basophils % (A) 0 %; Eosinophils # (A) 0.1 k/uL (0-0.7); Eosinophils % (A) 2 %; HCT 22.1 % (34.0-46.0); Hypochromasia Marked; Lymphocytes # (A) 1.5 k/uL (1.0-4.8); Lymphocytes % (A) 32 %; MCH 32.8 pg (25.0-35.0); MCHC 30.3 g/dL (31.0-37.0); MCV 108.3 fL (80.0-100.0); Macrocytosis Moderate; Mean Platelet Volume 6.9; Monocytes # (A) 0.3 k/uL (0-1.0); Monocytes % (A) 6 %; Neutrophils # (A) 2.8 k/uL (1.3-7.7); Neutrophils % (A) 59 %; Platelet Count 199 k/uL (150-450); RBC 2.04 m/uL (3.80-5.40); RDW 13.4 % (11.5-15.5); WBC 4.8 k/uL (3.8-10.6)
[2018-07-12 07:16] LABS: Albumin 2.6 g/dL (3.5-5.0); Calcium 8.3 mg/dL (8.4-10.2); HGB 6.7 gm/dL (11.4-16.0); Potassium 4.5 mmol/L (3.5-5.1); Total Bilirubin 0.3 mg/dL (0.2-1.3); Total Protein 4.6 g/dL (6.3-8.2)
[2018-07-12] MEDS: KETOTIFEN 0.025% OPHTH DROPS 5 ML BTL BOTH EYES SCH ×2 (08:38→20:01)
[2018-07-12] MEDS: FOLIC ACID 1 MG TAB PO SCH (08:39)
[2018-07-12] MEDS: DIPHENOX-ATROP 2.5-0.025 MG 1 EACH TAB PO SCH ×3 (08:39→20:00)
[2018-07-12] MEDS: DICYCLOMINE 20 MG TAB PO SCH ×2 (08:39→20:01)
[2018-07-12] MEDS: SODIUM BICARBONATE TAB 650 MG TAB PO SCH ×2 (08:39→20:00)
[2018-07-12] MEDS: GABAPENTIN 300 MG CAP PO SCH ×3 (08:39→20:00)
[2018-07-12] MEDS: MAGNESIUM OXIDE 400 MG TAB PO SCH ×2 (08:40→20:00)
[2018-07-12] MEDS: DULoxetine HCL 60 MG CAPSULE.DR PO SCH (08:40)
[2018-07-12] MEDS: prednisoLONE ACETATE 1% OPHTH DROPS 5 ML BTL BOTH EYES SCH ×2 (08:40→20:01)
[2018-07-12] MEDS: ALPRAZolam 0.5 MG TAB PO SCH ×2 (08:43→20:01)
[2018-07-12] MEDS: ACETAMINOPHEN TAB 325 MG TAB PO PRN ×2 (12:15→16:10)
[2018-07-12] MEDS ORDERED: SODIUM FERRIC GLUCONAT-SUCROSE 125 MG in SODIUM CHLORIDE 0.9% 100 ML IVPB ONE (13:00)
--- NOTE | 2018-07-12 13:46 | P.DS ---
Providers Date of admission: 07/10/18 15:01 Expected date of discharge: 07/12/18 Attending physician: Carline Cason Primary care physician: Meseret Haq [facility] Course: This is a 62-year-old pleasant lady patient of Dr. Haq underlying history off TIA, chronic pain, lupus multiple sclerosis fibromyalgia, she also has severe hypokalemia and secondary hypomagnesemia nonoliguric kidney failure admitted through the emergency room secondary to abnormal labs. Her potassium was 6.9. she was subsequently seen in the emergency room and was admitted to manage the hyperkalemia. 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 she has stomach cancer , [address] lemos chronically without relapse per pt, she is scheduled to have MRCP anytime soon as OP. She has chronic anemia, hemoglobin of 7-8, requires intermittent blood transfusion, patient denies any palpitations or chest pain, she was seen by nephrology Carla her last admission in February 2018, for postop possibility off tubular disorder leading to renal wasting, she was started on sodium bicarb at that time as well as some admission oxide the last comparable lab was in February 2018 with potassium of 4.0 creatinine of 1.07. Admitting lab was potassium of 6.9, creatinine of 1.47 admission normal at 1.7. 07/11: Patient is complaining of headache from lack of sleep last night. She is requesting morphine. We will add in one small dose of morphine for this evening at bedtime only. Soma will be discontinued and patient started on Zanaflex. Patient is requesting to be no CODE STATUS. Patient has been afebrile, pulse ox 95% on room air, blood pressure 106/54 and heart rate running in the 60s and 70s. Repeat lab work this morning showed a hemoglobin of 6.6 and repeated was 7.3, BUN 16 creatinine 1.37, potassium now at 5.2. Iron studies ordered and patient may need one dose of Ferrlecit. Most likely patient will be ready for discharge tomorrow. 07/12: Repeat hemoglobin is 6.7, BUN 18 creatinine 1.36, sodium 141, potassium 4.5, chloride 111, CO2 26. Iron studies showed iron of 40, TIBC 237, iron saturation 16.88, ferritin level CLXXIX.2. Vitamin B12 is 397. Patient will be transfused 1 unit of packed RBCs and infused 1 dose of Ferrlecit. She has no signs of bleeding. Patient follows with Dr. Lemos and has appointed scheduled for tomorrow which she will keep. Potassium is improved so we will plan to send her home on potassium supplement 20 mEq daily. Patient will be discharged home later today. Discharge diagnoses: 1. Electrolyte abnormalities of hyperkalemia and hypomagnesemia 2. Chronic kidney disease stage III. 3. Anemia of chronic disease 4. Hypomagnesemia most likely secondary to PPI use, Nexium discontinued. Resolved Patient placed on Pepcid. 5. Generalized anxiety disorder and recurrent depression. 6. Vitamin D deficiency. 7 Gastroesophageal reflux disease. 8. Headache from insomnia. 9. Chronic pain. Discharge plan: Home Impression and plan of care have been directed as dictated by the signing physician. Annalisa Delcid nurse practitioner acting as scribe for signing physician. Patient Condition at Discharge: Good Plan - Discharge Summary Discharge Rx Participant: No New Discharge Prescriptions: New tiZANidine [Zanaflex] 4 mg PO HS #30 tab Continue Gabapentin [Neurontin] 300 mg PO TID Magnesium Oxide [Mag-Ox] 400 mg PO BID Folic Acid 1 mg PO DAILY Ergocalciferol [Vitamin D2 (DRISDOL)] 50,000 unit PO MO DULoxetine HCL [Cymbalta] 60 mg PO DAILY traZODone HCL 150 mg PO HS Sodium Bicarbonate 325 mg PO BID Diphenox-Atrop 2.5-0.025 mg [Lomotil] 1 tab PO TID Dicyclomine [Bentyl] 20 mg PO BID ALPRAZolam [Xanax] 0.5 mg PO BID Loteprednol Etabonate [Lotemax] 1 drop BOTH EYES BID Olopatadine HCl [Pataday] 1 drop BOTH EYES BID Changed Potassium Chloride ER [K-Dur 20] 20 meq PO DAILY #0 Discontinued Carisoprodol [Soma] 350 mg PO HS Discharge Medication List Gabapentin [Neurontin] 300 mg PO TID 04/14/15 [History] DULoxetine HCL [Cymbalta] 60 mg PO DAILY 05/24/17 [History] Ergocalciferol [Vitamin D2 (DRISDOL)] 50,000 unit PO MO 05/24/17 [History] Folic Acid 1 mg PO DAILY 05/24/17 [History] Magnesium Oxide [Mag-Ox] 400 mg PO BID 05/24/17 [History] traZODone HCL 150 mg PO HS 02/27/18 [History] ALPRAZolam [Xanax] 0.5 mg PO BID 07/10/18 [History] Dicyclomine [Bentyl] 20 mg PO BID 07/10/18 [History] Diphenox-Atrop 2.5-0.025 mg [Lomotil] 1 tab PO TID 07/10/18 [History] Loteprednol Etabonate [Lotemax] 1 drop BOTH EYES BID 07/10/18 [History] Olopatadine HCl [Pataday] 1 drop BOTH EYES BID 07/10/18 [History] Sodium Bicarbonate 325 mg PO BID 07/10/18 [History] Potassium Chloride ER [K-Dur 20] 20 meq PO DAILY #0 07/12/18 [Rx] tiZANidine [Zanaflex] 4 mg PO HS #30 tab 07/12/18 [Rx] Follow up Appointment(s)/Referral(s): Norman Lemos MD [STAFF PHYSICIAN] - 1-2 Days (Please keep scheduled appointment tomorrow) Meseret Haq MD [Primary Care Provider] - 07/17/18 3:15 pm (Monday) Patient Instructions/Handouts: Hyperkalemia (DC), Anemia (DC)
[2018-07-12] MEDS ORDERED: MORPHINE SULFATE 2 MG/ML SYRINGE IVP PRN (18:21)
[2018-07-12] MEDS: tiZANidine 4 MG TAB PO SCH (20:00)
[2018-07-12] MEDS: traZODone HCL 100 MG TAB PO SCH (20:00)
[2018-07-13 06:49] LABS: Anisocytosis Slight; Basophils % (A) 0 %; Eosinophils # (A) 0.2 k/uL (0-0.7); Eosinophils % (A) 3 %; HCT 25.9 % (34.0-46.0); Lymphocytes # (A) 1.2 k/uL (1.0-4.8); Lymphocytes % (A) 16 %; MCH 33.1 pg (25.0-35.0); MCHC 33.3 g/dL (31.0-37.0); Macrocytosis Slight; Mean Platelet Volume 8.1; Monocytes # (A) 0.4 k/uL (0-1.0); Monocytes % (A) 6 %; Neutrophils # (A) 5.4 k/uL (1.3-7.7); Neutrophils % (A) 74 %; Platelet Count 205 k/uL (150-450); RDW 16.7 % (11.5-15.5); WBC 7.3 k/uL (3.8-10.6)
[2018-07-13 06:50] LABS: HGB 8.6 gm/dL (11.4-16.0); MCV 99.6 fL (80.0-100.0)
[2018-07-13 07:16] LABS: Calcium 8.6 mg/dL (8.4-10.2)
[2018-07-13 07:21] LABS: Potassium 4.6 mmol/L (3.5-5.1)
[2018-07-13 08:12] VITALS: BP 144/68; PULSE 67; RESP 16; TEMP 98.2
[2018-07-13] MEDS: SODIUM BICARBONATE TAB 650 MG TAB PO SCH (08:22)
[2018-07-13] MEDS: DULoxetine HCL 60 MG CAPSULE.DR PO SCH (08:23)
[2018-07-13] MEDS: DICYCLOMINE 20 MG TAB PO SCH (08:23)
[2018-07-13] MEDS: ACETAMINOPHEN TAB 325 MG TAB PO PRN (08:23)
[2018-07-13] MEDS: GABAPENTIN 300 MG CAP PO SCH (08:23)
[2018-07-13] MEDS: FOLIC ACID 1 MG TAB PO SCH (08:23)
[2018-07-13] MEDS: MAGNESIUM OXIDE 400 MG TAB PO SCH (08:23)
[2018-07-13] MEDS: DIPHENOX-ATROP 2.5-0.025 MG 1 EACH TAB PO SCH (08:24)
[2018-07-13] MEDS: ALPRAZolam 0.5 MG TAB PO SCH (08:24)
[2018-07-13] MEDS: prednisoLONE ACETATE 1% OPHTH DROPS 5 ML BTL BOTH EYES SCH (08:24)
== END 2018-07-13 11:18 | disposition home or self-care (01) | DRG 641 ==
LOC: EC 11:34 → 4SSUR 15:01 → 3SCARD 15:08
PROVIDERS: ADMIT Family Medicine; ATTEND Family Medicine
PROC: 30233N1 Transfusion of Nonautologous Red Blood Cells into Peripheral Vein, Percutaneous Approach (ICD-10-PCS; principal; 2018-07-12)
DX: E87.5 Hyperkalemia (principal); K91.2 Postsurgical malabsorption, not elsewhere classified; F33.9 Major depressive disorder, recurrent, unspecified; N17.9 Acute kidney failure, unspecified; R00.1 Bradycardia, unspecified; M32.9 Systemic lupus erythematosus, unspecified; M79.7 Fibromyalgia; G35 Multiple sclerosis; G89.29 Other chronic pain; E83.42 Hypomagnesemia; Z66 Do not resuscitate; D63.1 Anemia in chronic kidney disease; K21.9 Gastro-esophageal reflux disease without esophagitis; F17.200 Nicotine dependence, unspecified, uncomplicated; E87.2 Acidosis; N18.3 Chronic kidney disease, stage 3 (moderate); E55.9 Vitamin D deficiency, unspecified; F41.1 Generalized anxiety disorder; G47.00 Insomnia, unspecified; Z88.6 Allergy status to analgesic agent; Z88.1 Allergy status to other antibiotic agents; Z88.0 Allergy status to penicillin; Z91.013 Allergy to seafood; Z88.2 Allergy status to sulfonamides; Z88.8 Allergy status to other drugs, medicaments and biological substances; Z91.018 Allergy to other foods; Z79.899 Other long term (current) drug therapy; Z86.73 Personal history of transient ischemic attack (TIA), and cerebral infarction without residual deficits; Z85.028 Personal history of other malignant neoplasm of stomach; Z82.49 Family history of ischemic heart disease and other diseases of the circulatory system; Z82.5 Family history of asthma and other chronic lower respiratory diseases; Z83.3 Family history of diabetes mellitus; Z90.49 Acquired absence of other specified parts of digestive tract
CPT/HCPCS: 36415; 71046; 80048; 80053; 82150; 82607; 82728; 83540; 83550; 83690; 83735; 83880; 84132; 85025; 85027; 86850; 86900; 86901; 86920; 93005; 94640; 96360; 96361; 96365; 96366; 96375; 99285

== ENCOUNTER → 2018-07-18 | Outpatient (CLI) | payer MEDICARE, OTHER ==
--- NOTE | 2018-07-18 15:02 | MR ---
EXAMINATION TYPE: MR pancreas / mrcp wo/w con DATE OF EXAM: 07/18/2018 COMPARISON: CT abdomen pelvis dated 04/20/2018 and MRCP dated 02/03/2010 HISTORY: Epigastric Pain, pancreatitis CONTRAST: Standard multiplanar, multisequence MRI departmental protocol utilizing 5.5 mL intravenous Gadavist g adolinium contrast. FINDINGS: The common bile duct is upper limits of normal size measuring 6 mm although there is smooth tapering near the ampulla of Vater. There is an acute angle of the common bile duct just distal to the inserti on of the cystic duct. The common hepatic duct measures 6 mm as well. There is mild intrahepatic bili zeina ductal dilatation, preferentially of the left hepatic lobe. There is diffuse pancreatic ductal di latation as this measures 4.5 mm in the pancreatic body. No abrupt caliber change is seen. No current peripancreatic fat stranding is identified although there is pancreatic parenchymal atrophy present. The spleen, adrenal glands, and kidneys are of unremarkable enhancement and morphology other than T2 hyperintense/T1 hypointense nonenhancing renal cysts and mild bilateral nonspecific perinephric fat s tranding. Bilateral extrarenal pelvises are also incidentally noted. Partial contraction of the gallb ladder results in mild gallbladder wall thickening. There is gaseous distention of the bowel without dilation measuring up to 4.9 cm. Postsurgical changes of the lumbar spine are noted. Mild paraspinal muscular atrophy is seen. There is a trace right pleural effusion partially visualized. Small hiatal hernia is seen. The liver enhances homogeneously with no suspicious hepatic lesion. No portal vein thrombosis is iden tified. There is some motion artifact, slightly limiting the exam however no gross evidence of pancreatic mas s is seen. Pancreas although atrophic appears to enhance homogeneously. Moderate atherosclerosis is seen of the abdominal aorta and its branches. The liver is of decreased signal on T2-weighted imaging, lower than that of the paraspinal musculatur e and therefore hemochromatosis could be considered. Alternatively this could be artifactual. There i s no signal dropout of the liver and out of phase imaging. No findings to suggest hepatic steatosis. IMPRESSION: 1. Diffuse pancreatic ductal dilatation is seen however no discrete pancreatic mass is identified. Th ere is also parenchymal atrophy suggesting sequela of chronic pancreatitis. No findings to suggest ac fredy pancreatitis, acute necrotic fluid collection or pseudocyst. Evaluation for pancreatic mass is sl ightly limited by patient motion. 2. Common bile duct is upper limits of normal and there is very minimal intrahepatic biliary ductal d ilatation with smooth tapering of the common bile duct near the ampulla of Vater. No abrupt cut off o f the duct. Mild stricture is suspected. 3. Decreased signal on T2-weighted imaging of the liver may be artifactual or relate to hemochromatos is. Correlate with serum laboratory values. 4. No evidence of choledocholithiasis no cholelithiasis. Gallbladder is partially contracted.
== END | disposition home or self-care (01) ==
LOC: RADMRIMAIN 08:59
PROVIDERS: ATTEND Internal Medicine Gastroenterology
DX: K86.89 Other specified diseases of pancreas (principal); K83.8 Other specified diseases of biliary tract; K82.0 Obstruction of gallbladder
CPT/HCPCS: 74183; A9585

== ENCOUNTER → 2018-08-08 | Outpatient (CLI) | payer MEDICARE, OTHER ==
[2018-08-08 12:04] LABS: Basophils % (A) 1 %; Eosinophils # (A) 0.1 k/uL (0-0.7); Eosinophils % (A) 2 %; HCT 32.5 % (34.0-46.0); Hypochromasia Moderate; Lymphocytes # (A) 1.5 k/uL (1.0-4.8); Lymphocytes % (A) 27 %; MCH 31.9 pg (25.0-35.0); MCHC 30.7 g/dL (31.0-37.0); Macrocytosis Slight; Mean Platelet Volume 7.4; Monocytes # (A) 0.3 k/uL (0-1.0); Monocytes % (A) 6 %; Neutrophils # (A) 3.6 k/uL (1.3-7.7); Neutrophils % (A) 63 %; Platelet Count 235 k/uL (150-450); RBC 3.12 m/uL (3.80-5.40); Reticulocyte % 0.4 % (0.5-2.0); WBC 5.6 k/uL (3.8-10.6)
[2018-08-08 15:53] LABS: Albumin 4.5 g/dL (3.80-4.90); Albumin/Globulin Ratio 2.37 (1.60-3.17); Anion Gap 8.4 mmol/L (4.00-12.00); Calcium 9.4 mg/dL (8.7-10.3); Carbon Dioxide 23.6 mmol/L (21.6-31.8); Globulin 1.9 g/dL (1.6-3.3); Potassium 5.8 mmol/L (3.5-5.5); Total Bilirubin 0.2 mg/dL (0.3-1.2); Total Protein 6.4 g/dL (6.2-8.2)
[2018-08-08 16:06] LABS: Iron Saturation 45.45 (12.00-45.00)
== END ==
LOC: LABWHC1 09:52
PROVIDERS: ATTEND Internal Medicine Hematology & Oncology
DX: D50.9 Iron deficiency anemia, unspecified (principal); N18.9 Chronic kidney disease, unspecified; D63.1 Anemia in chronic kidney disease
CPT/HCPCS: 36415; 80053; 82668; 82728; 83540; 83550; 85025; 85045

== ENCOUNTER → 2018-09-13 | Outpatient (CLI) | payer MEDICARE, OTHER ==
--- NOTE | 2018-09-14 08:27 | XR ---
EXAMINATION TYPE: XR chest 2V DATE OF EXAM: 09/13/2018 COMPARISON: Prior chest x-ray 07/10/2018 HISTORY: Cough and congestion TECHNIQUE: Frontal and lateral views of the chest are obtained. FINDINGS: Prominent lung volumes are compatible with underlying COPD. No evident airspace disease, p neumothorax, or pleural effusion. Heart size is stable. Some minimal subsegmental atelectatic changes are present in the right upper lobe. There is bronchial wall thickening. IMPRESSION: Correlate for bronchitis, reactive airways disease, suspect some right upper lobe atelec tasis or scar. Consider follow-up.
== END | disposition home or self-care (01) ==
LOC: RADXRMAIN 18:15
PROVIDERS: ATTEND Internal Medicine
DX: R91.8 Other nonspecific abnormal finding of lung field (principal)
CPT/HCPCS: 71046

== ENCOUNTER → 2018-09-26 | Outpatient (CLI) | payer MEDICARE, OTHER ==
[2018-09-26 13:18] LABS: HCT 24.4 % (34.0-46.0); Hypochromasia Moderate; MCH 31.1 pg (25.0-35.0); MCV 100.3 fL (80.0-100.0); Mean Platelet Volume 6.9; Platelet Count 333 k/uL (150-450); RBC 2.44 m/uL (3.80-5.40); RDW 13.9 % (11.5-15.5); WBC 6.3 k/uL (3.8-10.6)
[2018-09-26 13:30] LABS: HGB 7.6 gm/dL (11.4-16.0)
[2018-09-26 22:25] LABS: Albumin/Globulin Ratio 2.35 (1.60-3.17); Anion Gap 7.4 mmol/L (4.00-12.00); Calcium 9.1 mg/dL (8.7-10.3); Carbon Dioxide 24.6 mmol/L (21.6-31.8); Globulin 1.7 g/dL (1.6-3.3); Potassium 5.5 mmol/L (3.5-5.5); Total Bilirubin 0.3 mg/dL (0.3-1.2); Total Protein 5.7 g/dL (6.2-8.2)
== END | disposition home or self-care (01) ==
LOC: LABWHC1 11:50
PROVIDERS: ATTEND Internal Medicine Hematology & Oncology
DX: D64.9 Anemia, unspecified (principal)
CPT/HCPCS: 36415; 80053; 82607; 82728; 83540; 83550; 83921; 85027

== ENCOUNTER 2018-11-05 16:50 | Inpatient (IN) | payer MEDICARE, OTHER ==
[2018-11-05] MEDS ORDERED: MORPHINE SULFATE 4 MG/ML SYRINGE IVP STA (17:29)
[2018-11-05] MEDS ORDERED: ACETAMINOPHEN TAB 325 MG TAB PO STA (17:29)
--- NOTE | 2018-11-05 17:38 | ED ---
General Adult HPI - General Chief complaint: Extremity Problem,Nontraumatic Stated complaint: Legs/feet in pain Time Seen by Provider: 11/05/18 17:18 Source: patient Mode of arrival: wheelchair Limitations: no limitations - History of Present Illness Initial comments: 63 yoF with history of erythema nodosum and multiple sclerosis presenting with bilateral lower extremity swelling erythema and pain that began on . She states it has progressively worsened and today her legs are too painful to stand on. She intermittently uses a wheelchair for mobility but does still stand to cook and do laundry. She admits to subjective fever and chills, as well as a mild headache. She states the headache is baseline for her secondary to a TBI but does not normally last this long in duration. She denies any dizziness or light headedness different than her baseline. She denies any neck pain or sick contacts. Denies any other rashes or lesions. She has not taken anything for the pain. She states she has no history of DVT/PE and is not on any anti coagulation. Denies any trauma to her lower extremity's. Patient states she last had an MS flair one year prior and it was characterized by difficulty with speech and writing. She denies any flairs similar to this presentation. - Related Data Home Medications Medication Instructions Recorded Confirmed Gabapentin [Neurontin] 300 mg PO TID 04/14/15 11/05/18 DULoxetine HCL [Cymbalta] 60 mg PO DAILY 05/24/17 11/05/18 Ergocalciferol [Vitamin D2 50,000 unit PO MO 05/24/17 11/05/18 (DRISDOL)] Folic Acid 1 mg PO DAILY 05/24/17 11/05/18 Magnesium Oxide [Mag-Ox] 400 mg PO BID 05/24/17 11/05/18 traZODone HCL 150 mg PO HS 02/27/18 11/05/18 ALPRAZolam [Xanax] 1 mg PO HS 07/10/18 11/05/18 Dicyclomine [Bentyl] 20 mg PO BID 07/10/18 11/05/18 Loteprednol Etabonate [Lotemax] 1 drop BOTH EYES BID 07/10/18 11/05/18 Olopatadine HCl [Pataday] 1 drop BOTH EYES BID 07/10/18 11/05/18 Sodium Bicarbonate 325 mg PO BID 07/10/18 11/05/18 Loperamide HCl [Imodium A-D] 2 mg PO TID 11/05/18 11/05/18 Potassium Chloride ER [K-Dur 20] 20 meq PO Q48H 11/05/18 11/05/18 Previous Rx's Medication Instructions Recorded tiZANidine [Zanaflex] 4 mg PO HS #30 tab 07/12/18 Allergies Allergy/AdvReac Type Severity Reaction Status Date / Time alcohol Allergy Unknown Verified 11/05/18 17:21 aspirin Allergy Unknown Verified 11/05/18 17:21 divalproex sodium Allergy Unknown Verified 11/05/18 17:21 [From Depakote] erythromycin base Allergy Unknown Verified 11/05/18 17:21 ketorolac [From Toradol] Allergy Unknown Verified 11/05/18 17:21 Penicillins Allergy Unknown Verified 11/05/18 17:21 shellfish derived [Shellfish] Allergy Unknown Verified 11/05/18 17:21 strawberry Allergy Unknown Verified 11/05/18 17:21 Sulfa (Sulfonamide Allergy Unknown Verified 11/05/18 17:21 Antibiotics) Review of Systems ROS Statement: Those systems with pertinent positive or pertinent negative responses have been documented in the HPI. Review of Systems Constitutional: Denies fever, chills Eyes: Denies change in vision, Denies pain Ears, nose, mouth, throat: Denies headaches, Denies sore throat Cardiovascular: Denies chest pain. Denies palpitations Respiratory: Denies shortness of breath, Denies cough Gastrointestinal: Denies abdominal pain. Denies nausea, vomiting, diarrhea. Genitourinary: Denies hematuria, Denies infections Musculoskeletal: Denies pain, Denies swelling Integumentary: Positive redness to lower extremities Neurological: Positive headache, Denies focal weakness, focal numbness Psychiatric: Denies anxiety, Denies depression Hematologic/Lymphatic: Denies easy bleeding or bruising ROS Other: All systems not noted in ROS Statement are negative. Past Medical History Past Medical History: Cancer, CVA/TIA, Fibromyalgia Additional Past Medical History / Comment(s): Lupus, TIA, right hand tendons severed, closed head injury, multiple sclerosis History of Any Multi-Drug Resistant Organisms: None Reported Past Surgical History: Appendectomy, Back Surgery, Section, Orthopedic Surgery Additional Past Surgical History / Comment(s): stomach cancer Past Anesthesia/Blood Transfusion Reactions: No Reported Reaction Past Psychological History: No Psychological Hx Reported Smoking Status: Current every day smoker Past Alcohol Use History: None Reported Past Drug Use History: None Reported - Past Family History Father Additional Family Medical History / Comment(s): Father is alive with history of diabetes and stomach problems. Mother Additional Family Medical History / Comment(s): Mother has history of diabetes, coronary artery disease and COPD. Sister(s) Additional Family Medical History / Comment(s): Patient has sisters all have female problems. She does state there is breast cancer history in her aunt. Son(s) Additional Family Medical History / Comment(s): Patient has one son with no major medical problems. General Exam - General Exam Comments Initial Comments: General: Awake, alert, No acute Distress HENT: Normocephalic. Atraumatic Eyes: PERRL. EOMI. No scleral icterus. No injected conjunctiva Neck: Full ROM Chest/Lungs: Clear to auscultation bilaterally. No wheezing, rhonchi, or rales Cardiac: Regular rate, rhythm. No murmurs or rubs. 2+ DP pulses bilaterally Abdomen/GI: Soft, nontender, nondistended. No rebound, guarding, or rigidity. Musculoskeletal: Full ROM. Edema extending from ankles to inferior aspect of the knee bilaterally Skin: Warm, dry, intact. Erythema to bilateral lateral aspect of both feet extending to lateral malleoli. Neurologic: A/Ox3, no weakness, no sensory deficit, no abnormal gait, no coordination deficit Limitations: no limitations Course Vital Signs 11/05/18 11/05/18 11/05/18 16:56 18:38 22:28 Temperature 100.2 F H 101.4 F H 98.0 F Pulse Rate 82 70 Respiratory 20 20 Rate Blood Pressure 133/72 99/61 O2 Sat by Pulse 99 98 Oximetry Medical Decision Making - Medical Decision Making 63-year-old female presenting with lower extremity swelling and erythema. Initial exam the patient is awake, alert, no acute distress. She is febrile but vital signs are otherwise stable. Patient's lower extremity Dopplers were negative. The patient has no leukocytosis but does have an elevated CRP, erythema and swelling to bilateral lower extremities, and is having difficulty ambulating and performing her ADLs at home secondary to the swelling and pain. At this time she requires admission for cellulitis. On reevaluation the patient's pain had improved but she was persistently febrile. She is unable to take an NSAID or aspirin. Started patient on vancomycin for her cellulitis. I spoke with Dr. Harris who is agreeable to admission. Patient is currently stable for transfer to the floor. - Lab Data Result diagrams: 11/05/18 18:53 11/05/18 18:53 Lab Results 11/05/18 11/05/18 11/05/18 Range/Units 18:45 18:53 18:53 WBC 10.2 (3.8-10.6) k/uL RBC 3.45 L (3.80-5.40) m/uL Hgb 11.5 D (11.4-16.0) gm/dL Hct 35.0 (34.0-46.0) % MCV 101.5 H (80.0-100.0) fL MCH 33.5 (25.0-35.0) pg MCHC 33.0 (31.0-37.0) g/dL RDW 14.5 (11.5-15.5) % Plt Count 254 (150-450) k/uL Neutrophils % 80 % Lymphocytes % 12 % Monocytes % 6 % Eosinophils % 1 % Basophils % 0 % Neutrophils # 8.1 H (1.3-7.7) k/uL Lymphocytes # 1.2 (1.0-4.8) k/uL Monocytes # 0.6 (0-1.0) k/uL Eosinophils # 0.1 (0-0.7) k/uL Basophils # 0.0 (0-0.2) k/uL Macrocytosis Slight ESR 17 (0-20) mm/hr Sodium 137 (137-145) mmol/L Potassium 4.7 (3.5-5.1) mmol/L Chloride 105 (98-107) mmol/L Carbon Dioxide 24 (22-30) mmol/L Anion Gap 8 mmol/L BUN 18 H (7-17) mg/dL Creatinine 1.19 H (0.52-1.04) mg/dL Est GFR (CKD-EPI)AfAm 55 (>60 ml/min/1.73 sqM) Est GFR (CKD-EPI)NonAf 48 (>60 ml/min/1.73 sqM) Glucose 95 (74-99) mg/dL Plasma Lactic Acid Cristiano (0.7-2.0) mmol/L Calcium 9.4 (8.4-10.2) mg/dL C-Reactive Protein 16.2 H (<10.0) mg/L Urine Color Yellow Urine Appearance Clear (Clear) Urine pH 5.0 (5.0-8.0) Ur Specific [place] 1.016 (1.001-1.035) Urine Protein Negative (Negative) Urine Glucose (UA) Negative (Negative) Urine Ketones Negative (Negative) Urine Blood Small H (Negative) Urine Nitrite Negative (Negative) Urine Bilirubin Negative (Negative) Urine Urobilinogen <2.0 (<2.0) mg/dL Ur Leukocyte Esterase Negative (Negative) Urine RBC 12 H (0-5) /hpf Urine WBC 1 (0-5) /hpf Ur Squamous Epith Cells <1 (0-4) /hpf Urine Bacteria Rare H (None) /hpf Urine Mucus Rare H (None) /hpf 11/05/18 Range/Units 18:53 WBC (3.8-10.6) k/uL RBC (3.80-5.40) m/uL Hgb (11.4-16.0) gm/dL Hct (34.0-46.0) % MCV (80.0-100.0) fL MCH (25.0-35.0) pg MCHC (31.0-37.0) g/dL RDW (11.5-15.5) % Plt Count (150-450) k/uL Neutrophils % % Lymphocytes % % Monocytes % % Eosinophils % % Basophils % % Neutrophils # (1.3-7.7) k/uL Lymphocytes # (1.0-4.8) k/uL Monocytes # (0-1.0) k/uL Eosinophils # (0-0.7) k/uL Basophils # (0-0.2) k/uL Macrocytosis ESR (0-20) mm/hr Sodium (137-145) mmol/L Potassium (3.5-5.1) mmol/L Chloride (98-107) mmol/L Carbon Dioxide (22-30) mmol/L Anion Gap mmol/L BUN (7-17) mg/dL Creatinine (0.52-1.04) mg/dL Est GFR (CKD-EPI)AfAm (>60 ml/min/1.73 sqM) Est GFR (CKD-EPI)NonAf (>60 ml/min/1.73 sqM) Glucose (74-99) mg/dL Plasma Lactic Acid Cristiano 1.0 (0.7-2.0) mmol/L Calcium (8.4-10.2) mg/dL C-Reactive Protein (<10.0) mg/L Urine Color Urine Appearance (Clear) Urine pH (5.0-8.0) Ur Specific [place] (1.001-1.035) Urine Protein (Negative) Urine Glucose (UA) (Negative) Urine Ketones (Negative) Urine Blood (Negative) Urine Nitrite (Negative) Urine Bilirubin (Negative) Urine Urobilinogen (<2.0) mg/dL Ur Leukocyte Esterase (Negative) Urine RBC (0-5) /hpf Urine WBC (0-5) /hpf Ur Squamous Epith Cells (0-4) /hpf Urine Bacteria (None) /hpf Urine Mucus (None) /hpf Disposition Clinical Impression: Cellulitis, Unable to ambulate Disposition: ADMITTED IP TO THIS HOSP Is patient prescribed a controlled substance at d/c from ED?: No Decision to Admit Reason: Admit from EC Decision Date: 11/05/18 Decision Time: 20:55
[2018-11-05 19:08] LABS: Appearance,Urine Clear (Clear); Bacteria,Urine Rare /hpf; Bilirubin,Urine Negative (Negative); Blood,Urine Small (Negative); Color,Urine Yellow; Glucose,Urine (UA) Negative (Negative); Ketones,Urine Negative (Negative); Leukocyte Esterase,Urine Negative (Negative); Mucus,Urine Rare /hpf; Nitrite,Urine Negative (Negative); Protein,Urine Negative (Negative); RBC,Urine 12 /hpf (0-5); Specific Gravity,Urine 1.016 (1.001-1.035); Squamous Epithelial Cell,Urine <1 /hpf (0-4); Urobilinogen,Urine <2.0 mg/dL (<2.0)
[2018-11-05 19:10] LABS: Basophils % (A) 0 %; Eosinophils # (A) 0.1 k/uL (0-0.7); Eosinophils % (A) 1 %; Lymphocytes # (A) 1.2 k/uL (1.0-4.8); Lymphocytes % (A) 12 %; MCH 33.5 pg (25.0-35.0); MCV 101.5 fL (80.0-100.0); Macrocytosis Slight; Mean Platelet Volume 7.7; Monocytes # (A) 0.6 k/uL (0-1.0); Monocytes % (A) 6 %; Neutrophils # (A) 8.1 k/uL (1.3-7.7); Neutrophils % (A) 80 %; Platelet Count 254 k/uL (150-450); RBC 3.45 m/uL (3.80-5.40); RDW 14.5 % (11.5-15.5); WBC 10.2 k/uL (3.8-10.6)
[2018-11-05 19:12] LABS: HGB 11.5 gm/dL (11.4-16.0)
[2018-11-05 19:26] LABS: C Reactive Protein 16.2 mg/L (<10.0); Calcium 9.4 mg/dL (8.4-10.2); Potassium 4.7 mmol/L (3.5-5.1)
--- NOTE | 2018-11-05 19:37 | US ---
EXAMINATION TYPE: US venous doppler duplex LE BI DATE OF EXAM: 11/05/2018 7:10 PM COMPARISON: NONE CLINICAL HISTORY: Pain. Leg pain. SIDE PERFORMED: Bilateral TECHNIQUE: The lower extremity deep venous system is examined utilizing real time linear array sonog roxana with graded compression, doppler sonography and color-flow sonography. VESSELS IMAGED: External Iliac Vein (EIV) Common Femoral Vein Deep Femoral Vein Greater Saphenous Vein * Femoral Vein Popliteal Vein Small Saphenous Vein * Proximal Calf Veins (* superficial vessels) Right Leg: Negative for DVT Left Leg: Negative for DVT No evidence of DVT bilateral legs. IMPRESSION: Normal bilateral leg duplex venous sonogram.
--- NOTE | 2018-11-05 19:46 | CT ---
EXAMINATION TYPE: CT brain wo con DATE OF EXAM: 11/05/2018 COMPARISON: 02/12/2018 HISTORY: Headache. CT DLP: 1111.4 mGycm Automated exposure control for dose reduction was used. FINDINGS: There is some cerebral cortical atrophy. There is no mass effect nor midline shift. There is no sign of intracranial hemorrhage. The calvarium is intact. IMPRESSION: CEREBRAL ATROPHY. NO ACUTE INTRACRANIAL ABNORMALITY. NO CHANGE.
[2018-11-05 20:18] LABS: Erythrocyte Sedimentation Rate 17 mm/hr (0-20)
[2018-11-05] MEDS ORDERED: VANCOMYCIN IV PER PHARMACY 1 EACH MISC MISCELLANE PRN (20:26)
[2018-11-05] MEDS ORDERED: VANCOMYCIN 1,000 MG in SODIUM CHLORIDE 0.9% 250 ML IVPB STA (20:35)
[2018-11-05] MEDS ORDERED: ONDANSETRON 4 MG/2 ML VIAL IVP PRN (20:55)
[2018-11-05] MEDS ORDERED: NALOXONE 0.4 MG/ML 1 ML VIAL IV PRN (20:55)
[2018-11-05] MEDS ORDERED: HYDROcodone/APAP 5-325MG 1 EACH TAB PO PRN (20:55)
[2018-11-06] MEDS ORDERED: MORPHINE SULFATE 2 MG/ML SYRINGE IVP STA (00:46)
[2018-11-06] MEDS: traZODone HCL 50 MG TAB PO SCH ×2 (01:27→20:16)
[2018-11-06] MEDS: DICYCLOMINE 20 MG TAB PO SCH ×3 (01:27→20:15)
[2018-11-06] MEDS: GABAPENTIN 300 MG CAP PO SCH ×2 (01:27→07:39)
[2018-11-06] MEDS: LOPERAMIDE 2 MG CAP PO SCH ×5 (01:27→20:16)
[2018-11-06] MEDS: tiZANidine 4 MG TAB PO SCH ×2 (01:41→20:16)
[2018-11-06] MEDS: SODIUM CHLORIDE 0.9% 1,000 ML IV SCH ×3 (01:41→20:16)
[2018-11-06] MEDS ORDERED: ACETAMINOPHEN TAB 325 MG TAB PO PRN (03:34)
[2018-11-06] MEDS: FOLIC ACID 1 MG TAB PO SCH (07:39)
[2018-11-06] MEDS: DULoxetine HCL 60 MG CAPSULE.DR PO SCH (07:39)
[2018-11-06] MEDS ORDERED: DICYCLOMINE 20 MG TAB PO SCH (09:00)
[2018-11-06 09:46] LABS: Basophils % (A) 0 %; Eosinophils # (A) 0.1 k/uL (0-0.7); Eosinophils % (A) 3 %; HCT 31.9 % (34.0-46.0); HGB 10.2 gm/dL (11.4-16.0); Hypochromasia Slight; Lymphocytes % (A) 20 %; MCH 33.3 pg (25.0-35.0); MCHC 32.1 g/dL (31.0-37.0); MCV 103.7 fL (80.0-100.0); Macrocytosis Slight; Mean Platelet Volume 7.6; Monocytes # (A) 0.3 k/uL (0-1.0); Monocytes % (A) 6 %; Neutrophils # (A) 3.5 k/uL (1.3-7.7); Neutrophils % (A) 70 %; Platelet Count 229 k/uL (150-450); RBC 3.08 m/uL (3.80-5.40); RDW 14.5 % (11.5-15.5); WBC 5.1 k/uL (3.8-10.6)
[2018-11-06 10:03] LABS: Calcium 9.1 mg/dL (8.4-10.2); Potassium 4.4 mmol/L (3.5-5.1)
[2018-11-06] MEDS: MORPHINE SULFATE 2 MG/ML SYRINGE IVP PRN ×3 (10:40→20:13)
[2018-11-06] MEDS ORDERED: VANCOMYCIN 1,000 MG in SODIUM CHLORIDE 0.9% 250 ML IVPB SCH (12:00)
--- NOTE | 2018-11-06 14:07 | P.HPIM ---
History of Present Illness H&P Date: 11/06/18 Chief Complaint: Leg pain This is a 63-year-old female patient of Dr. Haq with history of TIA, chronic pain, lupus, multiple sclerosis, fibromyalgia, chronic kidney disease stage III, anemia of chronic disease, generalized anxiety disorder and recurrent depression, vitamin D deficiency, gastroesophageal reflux disease. Patient's last hospitalization was in June 2018 at which time she was treated for hyperkalemia and hypomagnesemia thought to be secondary to PPI use. 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 Patient is complaining of terrible pain in her feet and legs. This has been going on since of last week. She states she feels weak in general. She lives in an apartment is able to hang onto furniture and move around. She complains of redness to both feet/ankle area and chronic back pain. She denies any trauma to her lower extremities. Patient has had hospitalizations in the past due to wounds from her neighbor's cat that failed outpatient treatment. She denies any known injury to her lower extremities. Patient presents to [facility] emergency center and found to be febrile with a temperature of 101.4 on the heart rate in the 70s and 80s, blood pressure 99/61 which she states she always runs a low blood pressure. White count was normal at 10.2, hemoglobin 11.5, BUN 18 creatinine 1.19. Electrolytes within normal limits. Blood sugar 95. C-reactive protein was 16.2. Urinalysis was clear with nitrate and leukoesterase negative. Lactic acid was 1. Patient was started on vancomycin and 1 dose of morphine was given in the emergency center. Patient states the morphine helped quite a bit and she is getting sick from [place]. Patient was admitted to the [facility] floor. Review of Systems Constitutional: Reports fatigue, Reports weakness, reports chills, reports fever, Denies poor appetite Eyes: denies blurred vision, denies pain Ears, nose, mouth and throat: Denies headache, Denies sore throat, Denies vertigo Cardiovascular: Denies chest pain, Denies decreased exercise tolerance, Denies dyspnea on exertion, Denies edema, Denies shortness of breath, Denies syncope Respiratory: Denies cough, Denies cough with sputum, Denies dyspnea, Denies excessive sputum, Denies hemoptysis, Denies home oxygen, Denies wheezing Gastrointestinal: Reports abdominal pain, Denies diarrhea, Denies nausea, Denies vomiting Genitourinary: Denies dysuria, Denies hematuria Musculoskeletal: Denies myalgias Integumentary: Reports wounds, Denies pruritus, Denies rash Neurological: Denies numbness, Denies weakness Psychiatric: Denies anxiety, Denies depression Endocrine: Denies fatigue, Denies weight change Past Medical History Past Medical History: Cancer, CVA/TIA, Fibromyalgia Additional Past Medical History / Comment(s): Lupus, TIA, right hand tendons severed, closed head injury, multiple sclerosis History of Any Multi-Drug Resistant Organisms: None Reported Past Surgical History: Appendectomy, Back Surgery, Section, Orthopedic Surgery Additional Past Surgical History / Comment(s): stomach cancer Past Anesthesia/Blood Transfusion Reactions: No Reported Reaction Past Psychological History: No Psychological Hx Reported Smoking Status: Current every day smoker Past Alcohol Use History: None Reported Additional Past Alcohol Use History / Comment(s): Patient is a smoker of 2-3 packs per day since she was 12 years of age and has recently cut back to 4 cigarettes per day. She denies any alcohol use. Past Drug Use History: None Reported - Past Family History Father Additional Family Medical History / Comment(s): Father is alive with history of diabetes and stomach problems. Mother Additional Family Medical History / Comment(s): Mother has history of diabetes, coronary artery disease and COPD. Sister(s) Additional Family Medical History / Comment(s): Patient has sisters all have female problems. She does state there is breast cancer history in her aunt. Son(s) Additional Family Medical History / Comment(s): Patient has one son with no major medical problems. Medications and Allergies Home Medications Medication Instructions Recorded Confirmed Type Gabapentin [Neurontin] 300 mg PO TID 04/14/15 11/05/18 History DULoxetine HCL [Cymbalta] 60 mg PO DAILY 05/24/17 11/05/18 History Ergocalciferol [Vitamin D2 50,000 unit PO MO 05/24/17 11/05/18 History (DRISDOL)] Folic Acid 1 mg PO DAILY 05/24/17 11/05/18 History Magnesium Oxide [Mag-Ox] 400 mg PO BID 05/24/17 11/05/18 History traZODone HCL 150 mg PO HS 02/27/18 11/05/18 History ALPRAZolam [Xanax] 1 mg PO HS 07/10/18 11/05/18 History Dicyclomine [Bentyl] 20 mg PO BID 07/10/18 11/05/18 History Loteprednol Etabonate [Lotemax] 1 drop BOTH EYES BID 07/10/18 11/05/18 History Olopatadine HCl [Pataday] 1 drop BOTH EYES BID 07/10/18 11/05/18 History Sodium Bicarbonate 325 mg PO BID 07/10/18 11/05/18 History tiZANidine [Zanaflex] 4 mg PO HS #30 tab 07/12/18 11/05/18 Rx Loperamide HCl [Imodium A-D] 2 mg PO TID 11/05/18 11/05/18 History Potassium Chloride ER [K-Dur 20] 20 meq PO Q48H 11/05/18 11/05/18 History Allergies Allergy/AdvReac Type Severity Reaction Status Date / Time alcohol Allergy Unknown Verified 11/05/18 17:21 aspirin Allergy Unknown Verified 11/05/18 17:21 divalproex sodium Allergy Unknown Verified 11/05/18 17:21 [From Depakote] erythromycin base Allergy Unknown Verified 11/05/18 17:21 ketorolac [From Toradol] Allergy Unknown Verified 11/05/18 17:21 Penicillins Allergy Unknown Verified 11/05/18 17:21 shellfish derived [Shellfish] Allergy Unknown Verified 11/05/18 17:21 strawberry Allergy Unknown Verified 11/05/18 17:21 Sulfa (Sulfonamide Allergy Unknown Verified 11/05/18 17:21 Antibiotics) Physical Exam Vitals: Vital Signs Temp Pulse Pulse Resp BP BP Pulse Ox 11/06/18 05:06 98.3 F 63 17 88/43 93 L 11/06/18 00:00 76 17 11/05/18 23:01 98.8 F 76 17 112/65 97 11/05/18 22:28 98.0 F 70 20 99/61 98 11/05/18 18:38 101.4 F H 11/05/18 16:56 100.2 F H 82 20 133/72 99 Intake and Output 11/05/18 11/06/1819 22:59 06:59 14:59 Intake Total 50 Balance 50 Intake: Amount of Fluid Infused ( 50 ml) Other: # Voids 1 # Bowel Movements 0 Weight 49.895 kg General appearance: Well-nourished, awake and oriented, cooperative - EENT Eyes: anicteric sclerae, PERRLA, normal appearance ENT: hearing grossly normal - Neck Neck: no lymphadenopathy, normal ROM, no other, no rigidity, no stridor, no thyromegaly - Respiratory Respiratory: bilateral: Bilateral crackles heard with significant wheezing in all the lung lobes with decreased air entry - Cardiovascular Rhythm: regular Heart sounds: normal: S1, S2 Abnormal Heart Sounds: Positive for systolic murmur, no diastolic murmur, no rub, no S3 Gallop, no S4 Gallop, no click, no other - Gastrointestinal General gastrointestinal: normal bowel sounds, soft, nontender - Integumentary Integumentary: no rash Erythema noted to the right dorsal/lateral and posterior ankle and left ankle. Areas are very tender to touch. No open wounds, drainage. - Neurologic Neurologic: CNII-XII intact, moving all her extremities equally, no sensory deficit appreciated - Musculoskeletal Musculoskeletal: strength equal bilaterally with generalized weakness of lower extremities - Psychiatric Psychiatric: A&O x's 3, appropriate affect Results CBC & Chem 7: 11/06/18 08:34 11/06/18 08:34 Labs: Abnormal Lab Results - Last 24 Hours (Table) 11/05/18 11/05/18 11/05/18 Range/Units 18:45 18:53 18:53 RBC 3.45 L (3.80-5.40) m/uL Hgb (11.4-16.0) gm/dL Hct (34.0-46.0) % MCV 101.5 H (80.0-100.0) fL Neutrophils # 8.1 H (1.3-7.7) k/uL BUN 18 H (7-17) mg/dL Creatinine 1.19 H (0.52-1.04) mg/dL C-Reactive Protein 16.2 H (<10.0) mg/L Urine Blood Small H (Negative) Urine RBC 12 H (0-5) /hpf Urine Bacteria Rare H (None) /hpf Urine Mucus Rare H (None) /hpf 11/06/18 Range/Units 08:34 RBC 3.08 L (3.80-5.40) m/uL Hgb 10.2 L (11.4-16.0) gm/dL Hct 31.9 L (34.0-46.0) % MCV 103.7 H (80.0-100.0) fL Neutrophils # (1.3-7.7) k/uL BUN (7-17) mg/dL Creatinine (0.52-1.04) mg/dL C-Reactive Protein (<10.0) mg/L Urine Blood (Negative) Urine RBC (0-5) /hpf Urine Bacteria (None) /hpf Urine Mucus (None) /hpf Thrombosis Risk Factor Assmnt - DVT/VTE Prophylaxis DVT/VTE Prophylaxis: Pharmacologic Prophylaxis ordered Assessment and Plan Plan: 1. Cellulitis of the bilateral feet and ankles. Continue vancomycin, ceftriaxone will be added. 2. Chronic kidney disease stage III. Avoid nephrotoxic agents. 3. Anemia of chronic kidney disease, stable. 4. Gastroesophageal reflux disease with history of hypomagnesemia secondary to PPI use. Patient placed on Pepcid. 5. Chronic pain. Continue gabapentin which will be decreased to 100 mg 3 times daily, morphine added for pain. Continue Zanaflex. 6. Generalized anxiety disorder and recurrent depression. Continue Xanax 1 mg at bedtime, Cymbalta 60 mg daily, Neurontin 100 mg 3 times daily, trazodone 150 mg at bedtime. 7. DVT prophylaxis. Heparin subcu. Patient will be admitted to the hospital for a minimum of 2 night stay. Discharge plan: Home with [facility]. PT and OT added. Impression and plan of care have been directed as dictated by the signing physician. Annalisa Delcid nurse practitioner acting as scribe for signing physician.
[2018-11-06] MEDS: GABAPENTIN 100 MG CAP PO SCH ×2 (15:29→20:16)
[2018-11-06] MEDS: HEPARIN SODIUM,PORCINE 5,000 UNIT/ML 1 ML VIAL SQ SCH (20:15)
[2018-11-06] MEDS: ALPRAZolam 1 MG TAB PO SCH (20:16)
[2018-11-06] MEDS ORDERED: traZODone HCL 50 MG TAB PO SCH (21:00)
[2018-11-06] MEDS ORDERED: tiZANidine 4 MG TAB PO SCH (21:00)
[2018-11-07] MEDS ORDERED: MORPHINE SULFATE 2 MG/ML SYRINGE ONE (03:40)
[2018-11-07] MEDS: DULoxetine HCL 60 MG CAPSULE.DR PO SCH (09:04)
[2018-11-07] MEDS: FAMOTIDINE 20 MG TAB PO SCH (09:04)
[2018-11-07] MEDS: FOLIC ACID 1 MG TAB PO SCH (09:04)
[2018-11-07] MEDS: HEPARIN SODIUM,PORCINE 5,000 UNIT/ML 1 ML VIAL SQ SCH ×2 (09:04→21:12)
[2018-11-07] MEDS: GABAPENTIN 100 MG CAP PO SCH ×3 (09:04→21:12)
[2018-11-07] MEDS: DICYCLOMINE 20 MG TAB PO SCH ×2 (09:04→21:11)
[2018-11-07] MEDS: LOPERAMIDE 2 MG CAP PO SCH ×4 (09:04→21:11)
[2018-11-07] MEDS: MORPHINE SULFATE 2 MG/ML SYRINGE IVP PRN ×3 (10:33→21:52)
--- NOTE | 2018-11-07 13:01 | CT ---
EXAMINATION TYPE: CT ankle RT wo con, CT ankle LT wo con DATE OF EXAM: 11/07/2018 COMPARISON: None. HISTORY: Bilateral ankle pain and burning sensation CT DLP: 256 mGycm Automated exposure control for dose reduction was used. FINDINGS: CT scan and bilateral ankle shows bilateral diffuse demineralization. No acute fracture or dislocatio n is seen bilaterally. Ankle mortise symmetry is preserved bilaterally. Hindfoot articulations are ma intained bilaterally. There are small superior calcaneal spur is seen bilaterally. Mild diffuse subcu taneous edema most prominent along plantar surface of the hindfoot is symmetric in appearance and bot h ankles. Lisfranc joints are maintained bilaterally. Normal sinus tarsi fat is seen bilaterally. No worrisome focal fluid collection is appreciated bilaterally. IMPRESSION: ABOVE.
[2018-11-07] MEDS: SODIUM CHLORIDE 0.9% 1,000 ML IV SCH (14:01)
--- NOTE | 2018-11-07 14:32 | P.PN ---
Subjective Progress Note Date: 11/07/18 This is a 63-year-old female patient of Dr. Haq with history of TIA, chronic pain, lupus, multiple sclerosis, fibromyalgia, chronic kidney disease stage III, anemia of chronic disease, generalized anxiety disorder and recurrent depression, vitamin D deficiency, gastroesophageal reflux disease. Patient's last hospitalization was in June 2018 at which time she was treated for hyperkalemia and hypomagnesemia thought to be secondary to PPI use. 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 Patient is complaining of terrible pain in her feet and legs. This has been going on since of last week. She states she feels weak in general. She lives in an apartment is able to hang onto furniture and move around. She complains of redness to both feet/ankle area and chronic back pain. She denies any trauma to her lower extremities. Patient has had hospitalizations in the past due to wounds from her neighbor's cat that failed outpatient treatment. She denies any known injury to her lower extremities. Patient presents to [facility] emergency center and found to be febrile with a temperature of 101.4 on the heart rate in the 70s and 80s, blood pressure 99/61 which she states she always runs a low blood pressure. White count was normal at 10.2, hemoglobin 11.5, BUN 18 creatinine 1.19. Electrolytes within normal limits. Blood sugar 95. C-reactive protein was 16.2. Urinalysis was clear with nitrate and leukoesterase negative. Lactic acid was 1. Patient was started on vancomycin and 1 dose of morphine was given in the emergency center. Patient states the morphine helped quite a bit and she is getting sick from [place]. Patient was admitted to the [facility] floor. 11/07: Patient continues to complain of significant pain to her ankles. There is erythema but continues in the same area slightly worse from yesterday. Patient also complains of pain to the bilateral fingers and gives history that 30+ years ago she had severed tendons in both hands and had surgical repair. Rate is running in the 60s, blood pressure 90/48 which patient states is her baseline, patient is been afebrile, pulse ox 92% on room air. There does not appear to be any infection in the ankle soft tissue and ceftriaxone and vancomycin will be discontinued. Uric acid will be checked, bone scan and bilateral ankle CAT scans. Consults added for and Dr. Haley. Concern is for acute lupus. Patient continues to have significant pain. Patient states she is concerned because she normally receives Procrit injection on through and has been doing this due to weight loss. We will plan to repeat CBC in the morning. Review of systems Constitutional: Reports fatigue, Reports weakness, reports chills, reports fever, Denies poor appetite, reports weight loss Eyes: denies blurred vision, denies pain Ears, nose, mouth and throat: Denies headache, Denies sore throat, Denies vertigo Cardiovascular: Denies chest pain, Denies decreased exercise tolerance, Denies dyspnea on exertion, Denies edema, Denies shortness of breath, Denies syncope Respiratory: Denies cough, Denies cough with sputum, Denies dyspnea, Denies excessive sputum, Denies hemoptysis, Denies home oxygen, Denies wheezing Gastrointestinal: Reports abdominal pain, Denies diarrhea, Denies nausea, Denies vomiting Genitourinary: Denies dysuria, Denies hematuria Musculoskeletal: Denies myalgias, Reports bilateral ankle pain Integumentary: Reports Redness to bilateral ankles, Denies pruritus, Denies rash Neurological: Denies numbness, Denies weakness Psychiatric: Denies anxiety, Denies depression Endocrine: Denies fatigue, reports weight change Objective - Vital Signs Vital signs: Vital Signs Temp 98.7 F 11/07/18 06:01 Pulse 62 11/07/18 06:01 Resp 16 11/07/18 06:01 BP 90/48 11/07/18 06:01 Pulse Ox 92 L 11/07/18 06:01 Intake & Output 11/06/18 11/07/18 11/07/18 18:59 06:59 18:59 Other: # Voids 0 1 - Exam General appearance: Well-nourished, awake and oriented, cooperative - EENT Eyes: anicteric sclerae, PERRLA, normal appearance ENT: hearing grossly normal - Neck Neck: no lymphadenopathy, normal ROM, no other, no rigidity, no stridor, no thyromegaly - Respiratory Respiratory: bilateral: Bilateral crackles heard with significant wheezing in all the lung lobes with decreased air entry - Cardiovascular Rhythm: regular Heart sounds: normal: S1, S2 Abnormal Heart Sounds: Positive for systolic murmur, no diastolic murmur, no rub, no S3 Gallop, no S4 Gallop, no click, no other - Gastrointestinal General gastrointestinal: normal bowel sounds, soft, nontender - Integumentary Integumentary: no rash Erythema noted to the right dorsal/lateral and posterior ankle and left ankle. Areas are very tender to touch. No open wounds, no drainage. - Neurologic Neurologic: CNII-XII intact, moving all her extremities equally, no sensory def icit appreciated - Musculoskeletal Musculoskeletal: strength equal bilaterally with generalized weakness of lower extremities - Psychiatric Psychiatric: A&O x's 3, appropriate affect - Labs CBC & Chem 7: 11/06/18 08:34 11/06/18 08:34 Labs: Microbiology - Last 24 Hours (Table) 11/05/18 18:53 Blood Culture - Preliminary Blood No Growth after 24 hours Assessment and Plan Plan: 1. Erythema and pain without cellulitis of the bilateral feet and ankles possibly related to lupus erythematosus. Antibiotics discontinued. Uric acid, bone scan, bilateral ankle CAT scan, consult with Dr. Cao and consult with Dr. Haley. 2. Chronic kidney disease stage III. Avoid nephrotoxic agents. 3. Anemia of chronic kidney disease, stable. 4. Gastroesophageal reflux disease with history of hypomagnesemia secondary to PPI use. Patient placed on Pepcid. 5. Chronic pain. Continue gabapentin which will be decreased to 100 mg 3 times daily, morphine added for pain. Continue Zanaflex. 6. Generalized anxiety disorder and recurrent depression. Continue Xanax 1 mg at bedtime, Cymbalta 60 mg daily, Neurontin 100 mg 3 times daily, trazodone 150 mg at bedtime. 7. History of MS without exacerbation. 8. History of fibromyalgia, stable 9. DVT prophylaxis. Heparin subcu. Discharge plan: Home with [facility]. PT and OT added. Impression and plan of care have been directed as dictated by the signing physician. Annalisa Delcid nurse practitioner acting as scribe for signing physician.
--- NOTE | 2018-11-07 14:40 | P.CONS ---
History of Present Illness - Reason for Consult Consult date: 11/07/18 Erythema bilateral ankles - History of Present Illness This is a 63-year-old female patient with history of TIA, chronic pain, lupus, multiple sclerosis, fibromyalgia, chronic kidney disease stage III, anemia of chronic disease, generalized anxiety disorder and recurrent depression, vitamin D deficiency, gastroesophageal reflux disease. Patient presented to [facility] emergency center due to severe pain and erythema to the bilateral feet and ankles. She denies having any trauma to her extremities. She does have history of previous hospitalization due to wounds from her neighbor's cat that failed outpatient treatment but she denies any known injuries. She denies any history of gout. Patient presents to [facility] emergency center and found to be febrile with a temperature of 101.4 on the heart rate in the 70s and 80s, blood pressure 99/61 which she states she always runs a low blood pressure. White count was normal at 10.2, hemoglobin 11.5, BUN 18 creatinine 1.19. Electrolytes within normal limits. Blood sugar 95. C-reactive protein was 16.2. Urinalysis was clear with nitrate and leukoesterase negative. Lactic acid was 1. Patient was started on vancomycin and 1 dose of morphine was given in the emergency center. She was then on vancomycin and Rocephin for one day and did not show any improvement of the erythema and these were discontinued.. There was actually slight increase in the erythema the patient continued to have significant pain and tenderness. Patient also complains of pain to the bilateral fingers and gives history that 30+ years ago she had severed tendons in both hands and had surgical repair. She has been afebrile since admission. The following have been ordered: Uric acid, bone scan and bilateral ankle CAT scans. Consult also in place for Dr. Haley. Blood culture showing no growth after 24 hours. Review of Systems Constitutional: Reports fatigue, Reports weakness, reports chills, reports fever, Denies poor appetite, reports weight loss Eyes: denies blurred vision, denies pain Ears, nose, mouth and throat: Denies headache, Denies sore throat, Denies vertigo Cardiovascular: Denies chest pain, Denies decreased exercise tolerance, Denies dyspnea on exertion, Denies edema, Denies shortness of breath, Denies syncope Respiratory: Denies cough, Denies cough with sputum, Denies dyspnea, Denies excessive sputum, Denies hemoptysis, Denies home oxygen, Denies wheezing Gastrointestinal: Reports abdominal pain, Denies diarrhea, Denies nausea, Denies vomiting Genitourinary: Denies dysuria, Denies hematuria Musculoskeletal: Denies myalgias Integumentary: Reports redness and swelling to the bilateral ankles and feet Denies pruritus, Denies rash Neurological: Denies numbness, Denies weakness Psychiatric: Denies anxiety, Denies depression Endocrine: Denies fatigue, reports weight change Past Medical History Past Medical History: Cancer, CVA/TIA, Fibromyalgia Additional Past Medical History / Comment(s): Lupus, TIA, right hand tendons severed, closed head injury, multiple sclerosis History of Any Multi-Drug Resistant Organisms: None Reported Past Surgical History: Appendectomy, Back Surgery, Section, Orthopedic Surgery Additional Past Surgical History / Comment(s): stomach cancer Past Anesthesia/Blood Transfusion Reactions: No Reported Reaction Past Psychological History: No Psychological Hx Reported Smoking Status: Current every day smoker Past Alcohol Use History: None Reported Additional Past Alcohol Use History / Comment(s): Patient is a smoker of 2-3 packs per day since she was 12 years of age and has recently cut back to 4 cigarettes per day. She denies any alcohol use. Past Drug Use History: None Reported - Past Family History Father Additional Family Medical History / Comment(s): Father is alive with history of diabetes and stomach problems. Mother Additional Family Medical History / Comment(s): Mother has history of diabetes, coronary artery disease and COPD. Sister(s) Additional Family Medical History / Comment(s): Patient has sisters all have female problems. She does state there is breast cancer history in her aunt. Son(s) Additional Family Medical History / Comment(s): Patient has one son with no major medical problems. Medications and Allergies Home Medications Medication Instructions Recorded Confirmed Type Gabapentin [Neurontin] 300 mg PO TID 04/14/15 11/05/18 History DULoxetine HCL [Cymbalta] 60 mg PO DAILY 05/24/17 11/05/18 History Ergocalciferol [Vitamin D2 50,000 unit PO MO 05/24/17 11/05/18 History (DRISDOL)] Folic Acid 1 mg PO DAILY 05/24/17 11/05/18 History Magnesium Oxide [Mag-Ox] 400 mg PO BID 05/24/17 11/05/18 History traZODone HCL 150 mg PO HS 02/27/18 11/05/18 History ALPRAZolam [Xanax] 1 mg PO HS 07/10/18 11/05/18 History Dicyclomine [Bentyl] 20 mg PO BID 07/10/18 11/05/18 History Loteprednol Etabonate [Lotemax] 1 drop BOTH EYES BID 07/10/18 11/05/18 History Olopatadine HCl [Pataday] 1 drop BOTH EYES BID 07/10/18 11/05/18 History Sodium Bicarbonate 325 mg PO BID 07/10/18 11/05/18 History tiZANidine [Zanaflex] 4 mg PO HS #30 tab 07/12/18 11/05/18 Rx Loperamide HCl [Imodium A-D] 2 mg PO TID 11/05/18 11/05/18 History Potassium Chloride ER [K-Dur 20] 20 meq PO Q48H 11/05/18 11/05/18 History Allergies Allergy/AdvReac Type Severity Reaction Status Date / Time alcohol Allergy Unknown Verified 11/05/18 17:21 aspirin Allergy Unknown Verified 11/05/18 17:21 divalproex sodium Allergy Unknown Verified 11/05/18 17:21 [From Depakote] erythromycin base Allergy Unknown Verified 11/05/18 17:21 ketorolac [From Toradol] Allergy Unknown Verified 11/05/18 17:21 Penicillins Allergy Unknown Verified 11/05/18 17:21 shellfish derived [Shellfish] Allergy Unknown Verified 11/05/18 17:21 strawberry Allergy Unknown Verified 11/05/18 17:21 Sulfa (Sulfonamide Allergy Unknown Verified 11/05/18 17:21 Antibiotics) Physical Exam Vitals: Vital Signs Temp Pulse Resp BP Pulse Ox 11/07/18 06:01 98.7 F 62 16 90/48 92 L 11/06/18 21:04 99.1 F 68 17 109/55 98 11/06/18 16:00 65 16 11/06/18 12:45 99.8 F H 65 16 86/49 95 Intake and Output 11/06/18 11/07/18 11/07/18 22:59 06:59 14:59 Other: # Voids 1 1 General appearance: Well-nourished, awake and oriented, cooperative - EENT Eyes: anicteric sclerae, PERRLA, normal appearance ENT: hearing grossly normal - Neck Neck: no lymphadenopathy, normal ROM, no other, no rigidity, no stridor, no thyromegaly - Respiratory Respiratory: bilateral: Bilateral crackles heard with significant wheezing in all the lung lobes with decreased air entry - Cardiovascular Rhythm: regular Heart sounds: normal: S1, S2 Abnormal Heart Sounds: Positive for systolic murmur, no diastolic murmur, no rub, no S3 Gallop, no S4 Gallop, no click, no other - Gastrointestinal General gastrointestinal: normal bowel sounds, soft, nontender - Integumentary Integumentary: no rash Erythema noted to the right dorsal/lateral and posterior ankle and left ankle. Areas are very tender to touch. No open wounds, no drainage. - Neurologic Neurologic: CNII-XII intact, moving all her extremities equally, no sensory deficit appreciated - Musculoskeletal Musculoskeletal: strength equal bilaterally with generalized weakness of lower extremities - Psychiatric Psychiatric: A&O x's 3, appropriate affect Results Results: Laboratory Results WBC 5.1 k/uL (3.8-10.6) 11/06/18 08:34 RBC 3.08 m/uL (3.80-5.40) L 11/06/18 08:34 Hgb 10.2 gm/dL (11.4-16.0) L 11/06/18 08:34 Hct 31.9 % (34.0-46.0) L 11/06/18 08:34 MCV 103.7 fL (80.0-100.0) H 11/06/18 08:34 MCH 33.3 pg (25.0-35.0) 11/06/18 08:34 MCHC 32.1 g/dL (31.0-37.0) 11/06/18 08:34 RDW 14.5 % (11.5-15.5) 11/06/18 08:34 Plt Count 229 k/uL (150-450) 11/06/18 08:34 Neutrophils % 70 % 11/06/18 08:34 Lymphocytes % 20 % 11/06/18 08:34 Monocytes % 6 % 11/06/18 08:34 Eosinophils % 3 % 11/06/18 08:34 Basophils % 0 % 11/06/18 08:34 Neutrophils # 3.5 k/uL (1.3-7.7) 11/06/18 08:34 Lymphocytes # 1.0 k/uL (1.0-4.8) 11/06/18 08:34 Monocytes # 0.3 k/uL (0-1.0) 11/06/18 08:34 Eosinophils # 0.1 k/uL (0-0.7) 11/06/18 08:34 Basophils # 0.0 k/uL (0-0.2) 11/06/18 08:34 Hypochromasia Slight 11/06/18 08:34 Macrocytosis Slight 11/06/18 08:34 ESR 17 mm/hr (0-20) 11/05/18 18:53 Sodium 138 mmol/L (137-145) 11/06/18 08:34 Potassium 4.4 mmol/L (3.5-5.1) 11/06/18 08:34 Chloride 109 mmol/L (98-107) H 11/06/18 08:34 Carbon Dioxide 21 mmol/L (22-30) L 11/06/18 08:34 Anion Gap 8 mmol/L 11/06/18 08:34 BUN 22 mg/dL (7-17) H 11/06/18 08:34 Creatinine 1.25 mg/dL (0.52-1.04) H 11/06/18 08:34 Est GFR (CKD-EPI)AfAm 52 (>60 ml/min/1.73 sqM) 11/06/18 08:34 Est GFR (CKD-EPI)NonAf 45 (>60 ml/min/1.73 sqM) 11/06/18 08:34 Glucose 89 mg/dL (74-99) 11/06/18 08:34 Plasma Lactic Acid Cristiano 1.0 mmol/L (0.7-2.0) 11/05/18 18:53 Uric Acid 4.6 mg/dL (3.7-7.4) 11/06/18 08:34 Calcium 9.1 mg/dL (8.4-10.2) 11/06/18 08:34 C-Reactive Protein 16.2 mg/L (<10.0) H 11/05/18 18:53 Vitamin B12 332.0 pg/mL (200.0-944.0) 11/06/18 08:34 Urine Color Yellow 11/05/18 18:45 Urine Appearance Clear (Clear) 11/05/18 18:45 Urine pH 5.0 (5.0-8.0) 11/05/18 18:45 Ur Specific [place] 1.016 (1.001-1.035) 11/05/18 18:45 Urine Protein Negative (Negative) 11/05/18 18:45 Urine Glucose (UA) Negative (Negative) 11/05/18 18:45 Urine Ketones Negative (Negative) 11/05/18 18:45 Urine Blood Small (Negative) H 11/05/18 18:45 Urine Nitrite Negative (Negative) 11/05/18 18:45 Urine Bilirubin Negative (Negative) 11/05/18 18:45 Urine Urobilinogen <2.0 mg/dL (<2.0) 11/05/18 18:45 Ur Leukocyte Esterase Negative (Negative) 11/05/18 18:45 Urine RBC 12 /hpf (0-5) H 11/05/18 18:45 Urine WBC 1 /hpf (0-5) 11/05/18 18:45 Ur Squamous Epith Cells <1 /hpf (0-4) 11/05/18 18:45 Urine Bacteria Rare /hpf (None) H 11/05/18 18:45 Urine Mucus Rare /hpf (None) H 11/05/18 18:45 CBC & Chem 7: 11/06/18 08:34 11/06/18 08:34 Labs: Microbiology - Last 24 Hours (Table) 11/05/18 18:53 Blood Culture - Preliminary Blood No Growth after 24 hours Assessment and Plan Plan: This is a 63-year-old female who presents to the hospital with erythema and pain to bilateral feet and ankles. Patient has underlying history of lupus erythematosus. The patient was on vancomycin and Rocephin for greater than 24 hours and these subsequently been discontinued. Uric acid, bone scan, bilateral ankle CAT scans have been ordered. Consult is in place with Dr. Haley. Blood culture showing no growth at 24 hours. Continue supportive care. Further recommendations as patient progresses. The above dictated assessment and findings were discussed with Dr. Cao. The impression and plan of care have been directed as dictated. Annalisa Delcid nurse practitioner acting as scribe for Dr. Cao.
[2018-11-07 15:25] LABS: Albumin 3.4 g/dL (3.5-5.0); C Reactive Protein 52.7 mg/L (<10.0); Total Bilirubin 0.2 mg/dL (0.2-1.3); Total Protein 5.7 g/dL (6.3-8.2); Uric Acid 5.7 mg/dL (3.7-7.4)
[2018-11-07 15:28] LABS: Basophils % (A) 1 %; Eosinophils # (A) 0.1 k/uL (0-0.7); Eosinophils % (A) 3 %; HCT 31.6 % (34.0-46.0); HGB 9.6 gm/dL (11.4-16.0); Hypochromasia Slight; Lymphocytes # (A) 0.7 k/uL (1.0-4.8); Lymphocytes % (A) 17 %; MCH 31.7 pg (25.0-35.0); MCHC 30.6 g/dL (31.0-37.0); MCV 103.7 fL (80.0-100.0); Macrocytosis Slight; Mean Platelet Volume 7.4; Monocytes # (A) 0.3 k/uL (0-1.0); Monocytes % (A) 6 %; Neutrophils # (A) 2.8 k/uL (1.3-7.7); Neutrophils % (A) 72 %; Platelet Count 238 k/uL (150-450); RBC 3.04 m/uL (3.80-5.40); RDW 14.2 % (11.5-15.5); WBC 3.9 k/uL (3.8-10.6)
--- NOTE | 2018-11-07 16:04 | NM ---
EXAMINATION TYPE: NM bone 3 phase DATE OF EXAM: 11/07/2018 COMPARISON: Bilateral ankle CT same date HISTORY: Pain, erythema, swelling Triple phase bone scintigraphy was performed following the injection of 21.8 mCi Tc 99m MDP. Immedia te images and 3 hours post injection images acquired over the feet and ankles. FINDINGS: There is no significant abnormal accumulation of radiotracer to suggest metastatic disease to the bon e or other significant abnormality. Symmetric uptake is noted to the ankles and feet. IMPRESSION: Unremarkable limited bone scan..
--- NOTE | 2018-11-07 16:09 | XR ---
Bilateral hands HISTORY: Pain for 2 months 2 views of each hand submitted on a total of 4 images. No comparisons Bone mineralization is reduced, joint spaces, alignment are maintained. No fracture or dislocation. IMPRESSION: Osteopenia.
[2018-11-07] MEDS: methylPREDNISolone SOD SUCCI 40 MG/ML 1 ML VIAL IV SCH (17:16)
[2018-11-07 17:20] LABS: Polychromasia Present
[2018-11-07 18:18] LABS: Erythrocyte Sedimentation Rate 25 mm/hr (0-20)
--- NOTE | 2018-11-07 18:21 | XR ---
EXAMINATION TYPE: XR chest 2V DATE OF EXAM: 11/07/2018 COMPARISON: Chest x-ray September 13, 2018 HISTORY: Sarcoidosis. TECHNIQUE: Frontal and lateral views of the chest are obtained. FINDINGS: There is new small left pleural effusion with blunting of lateral left costophrenic angle. Tiny right pleural effusion is seen with blunting of posterior costophrenic angle. No new suspicious focal airspace opacity or pneumothorax. The cardiac silhouette size is within normal limits. The o sseous structures are somewhat demineralized. Underlying Scoliotic curvature is present. IMPRESSION: New small to tiny left greater than right pleural effusions.
[2018-11-07 19:16] LABS: Protein, Total 5.3 g/dL (6.2-8.2)
[2018-11-07] MEDS: tiZANidine 4 MG TAB PO SCH (21:11)
[2018-11-07] MEDS: ALPRAZolam 1 MG TAB PO SCH (21:11)
[2018-11-07] MEDS: traZODone HCL 50 MG TAB PO SCH (21:11)
--- NOTE | 2018-11-07 23:05 | P.CON ---
Consult Note - . Consult date: 11/07/18 Assessment/Plan:: This is a 63-year-old female patient with history of TIA, chronic pain, lupus, multiple sclerosis, fibromyalgia, chronic kidney disease stage III, anemia of chronic disease, generalized anxiety disorder and recurrent depressio n, vitamin D deficiency, gastroesophageal reflux disease. Patient presented to [facility] emergency center due to severe pain and erythema to the bilateral feet and ankles. She denies having any trauma to her extremities. She does have history of previous hospitalization due to wounds from her neighbor's cat that failed outpatient treatment but she denies any known injuries. She denies any history of gout. Patient presents to [facility] emergency center and found to be febrile with a temperature of 101.4 on the heart rate in the 70s and 80s, blood pressure 99/61 which she states she always runs a low blood pressure. White count was normal at 10.2, hemoglobin 11.5, BUN 18 creatinine 1.19. Electrolytes within normal limits. Blood sugar 95. C-reactive protein was 16.2. Urinalysis was clear with nitrate and leukoesterase negative. Lactic acid was 1. Patient was started on vancomycin and 1 dose of morphine was given in the emergency center. She was then on vancomycin and Rocephin for one day and did not show any improvement of the erythema and these were discontinued.. There was actually slight increase in the erythema the patient continued to have significant pain and tenderness. Patient also complains of pain to the bilateral fingers and gives history that 30+ years ago she had severed tendons in both hands and had surgical repair. She has been afebrile since admission. The following have been ordered: Uric acid, bone scan and bilateral ankle CAT scans. Consult also in place for Dr. Haley. Blood culture showing no growth after 24 hours. Please see my consult note is dictated by nurse practitioner Annalisa Bhavin. 63-year-old woman who has a complex past medical history including MS, lupus, fibromyalgia and significant debility. The patient relates that she utilizes an electric wheelchair for traversing large distances. When the weather is warm she is able to get up with her walker and actually walk approximately a city block. She relates at home she started to feel poorly. She developed some fever and chills. Then had the significant pain and swelling to the bilateral lower extremities especially distally of the left foot and right lateral ankle. The pain was so severe she sought admission possible. There was concern as to cellulitis and antibiotic therapy was started. The patient had almost immediate resolution of some of the difficulties. With concerns to infection versus a secondary process the consult was requested. He has noticed the patient has evidence of the computed tomography scan findings without evidence of deep infection. Uric acid level was normal and cultures are negative. At this time agree with discontinuation of antibiotic therapy. The patient could have pseudogout, a flare of her lupus or other acute inflammatory process and consequently we'll initiate a few doses of Solu-Medrol to see if this cannot allow rapid improvement of her current manifestations. At this time there are no other sites of infection are noted and we will monitored off of antibiotic therapy. Rheumatology consult has been requested with her history of lupus. I agree with evaluation, assessment and plan is dictated by nurse practitioner Mrs. Annalisa Delcid.
[2018-11-08] MEDS: methylPREDNISolone SOD SUCCI 40 MG/ML 1 ML VIAL IV SCH ×3 (00:24→16:23)
[2018-11-08 01:22] LABS: Appearance,Urine Clear (Clear); Bacteria,Urine Moderate /hpf; Bilirubin,Urine Negative (Negative); Blood,Urine Small (Negative); Color,Urine Yellow; Glucose,Urine (UA) Negative (Negative); Ketones,Urine Negative (Negative); Leukocyte Esterase,Urine Negative (Negative); Mucus,Urine Rare /hpf; Nitrite,Urine Negative (Negative); Protein,Urine Negative (Negative); RBC,Urine 5 /hpf (0-5); Specific Gravity,Urine 1.013 (1.001-1.035); Squamous Epithelial Cell,Urine 2 /hpf (0-4); Urobilinogen,Urine <2.0 mg/dL (<2.0); WBC,Urine <1 /hpf (0-5)
[2018-11-08 01:54] LABS: Rheumatoid Factor 9 IU/mL (0-15)
[2018-11-08 03:33] LABS: Hepatitis C IgG Antibody Non-Reactive (Non-Reactive)
[2018-11-08] MEDS: SODIUM CHLORIDE 0.9% 1,000 ML IV SCH ×2 (03:58→16:23)
[2018-11-08] MEDS: MORPHINE SULFATE 2 MG/ML SYRINGE IVP PRN ×3 (04:12→12:53)
[2018-11-08] MEDS: FOLIC ACID 1 MG TAB PO SCH (08:20)
[2018-11-08] MEDS: FAMOTIDINE 20 MG TAB PO SCH (08:20)
[2018-11-08] MEDS: DULoxetine HCL 60 MG CAPSULE.DR PO SCH (08:21)
[2018-11-08] MEDS: HEPARIN SODIUM,PORCINE 5,000 UNIT/ML 1 ML VIAL SQ SCH (08:21)
[2018-11-08] MEDS: DICYCLOMINE 20 MG TAB PO SCH (08:21)
[2018-11-08] MEDS: LOPERAMIDE 2 MG CAP PO SCH ×3 (08:21→16:23)
[2018-11-08] MEDS: GABAPENTIN 100 MG CAP PO SCH ×2 (08:26→16:23)
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
[2018-11-08 09:21] LABS: HCT 31.8 % (34.0-46.0); Hypochromasia Moderate; MCH 32.6 pg (25.0-35.0); MCHC 31.5 g/dL (31.0-37.0); MCV 103.6 fL (80.0-100.0); Macrocytosis Slight; Mean Platelet Volume 7.4; Platelet Count 249 k/uL (150-450); RBC 3.07 m/uL (3.80-5.40); RDW 14.2 % (11.5-15.5); WBC 5.2 k/uL (3.8-10.6)
[2018-11-08 09:49] LABS: Calcium 9.4 mg/dL (8.4-10.2); Potassium 4.2 mmol/L (3.5-5.1)
[2018-11-08 11:52] LABS: APTT 61 Sec(s) (<43); APTT 1:1 Mix 46 Sec(s) (<43); Dilute Russell Viper Venom 38 Sec(s) (<44); Hexagonal Phase Neutralization Positive (Negative)
[2018-11-08 12:13] LABS: Albumin 3.18 g/dL (3.80-4.90); Gamma Globulin 0.48 g/dL (0.70-1.50)
[2018-11-08 12:15] LABS: HLA B27 NEGATIVE
[2018-11-08 12:32] LABS: Aldolase 3.3 U/L (1.2-7.6)
[2018-11-08 12:38] LABS: Angiotensin-1 Converting Enz. 34 U/L (8-52)
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
[2018-11-08] MEDS ORDERED: DARBEPOETIN ALFA 40 MCG/0.4 ML SYRINGE SQ SCH (15:00)
[2018-11-08 15:07] LABS: C-ANCA <1:20 Titer (<1:20); P-ANCA <1:20 Titer (<1:20)
[2018-11-08 15:09] VITALS: BP 117/65; PULSE 82; RESP 16; TEMP 98.1
[2018-11-09 13:10] LABS: Centromere Antibody Interp NEGATIVE (NEGATIVE); DNA Double-Stranded NEGATIVE (NEGATIVE); RNP <0.2 AI
[2018-11-09 13:41] LABS: Scleroderma SC-70 Ab <0.2 AI
[2018-11-12 08:49] LABS: Cyclic Citrullinated Pep IgG 6
[2018-11-12] MEDS ORDERED: ERGOCALCIFEROL 50,000 UNIT CAP PO SCH (09:00)
== END 2018-11-08 17:10 | disposition home or self-care (01) | DRG 596 ==
LOC: EC 16:50 → 4MS4W 20:55
PROVIDERS: ADMIT Internal Medicine Geriatric Medicine; ATTEND Internal Medicine Geriatric Medicine
PROC: B54MZZA Ultrasonography of Right Upper Extremity Veins, Guidance (ICD-10-PCS; principal; 2018-11-07 09:00)
PROC: 05H933Z Insertion of Infusion Device into Right Brachial Vein, Percutaneous Approach (ICD-10-PCS; principal; 2018-11-07 09:00)
DX: L93.0 Discoid lupus erythematosus (principal); F33.9 Major depressive disorder, recurrent, unspecified; L52 Erythema nodosum; N18.3 Chronic kidney disease, stage 3 (moderate); D63.1 Anemia in chronic kidney disease; N18.9 Chronic kidney disease, unspecified; K21.9 Gastro-esophageal reflux disease without esophagitis; E83.42 Hypomagnesemia; G89.29 Other chronic pain; F41.1 Generalized anxiety disorder; G35 Multiple sclerosis; F17.200 Nicotine dependence, unspecified, uncomplicated; I34.1 Nonrheumatic mitral (valve) prolapse; J44.9 Chronic obstructive pulmonary disease, unspecified; M77.30 Calcaneal spur, unspecified foot; M79.7 Fibromyalgia; Z79.899 Other long term (current) drug therapy; Z82.49 Family history of ischemic heart disease and other diseases of the circulatory system; Z82.5 Family history of asthma and other chronic lower respiratory diseases; Z83.3 Family history of diabetes mellitus; Z85.028 Personal history of other malignant neoplasm of stomach; Z86.73 Personal history of transient ischemic attack (TIA), and cerebral infarction without residual deficits; Z88.1 Allergy status to other antibiotic agents; Z88.0 Allergy status to penicillin; Z88.2 Allergy status to sulfonamides; Z88.8 Allergy status to other drugs, medicaments and biological substances; Z88.6 Allergy status to analgesic agent; Z91.013 Allergy to seafood; Z90.49 Acquired absence of other specified parts of digestive tract; Z98.891 History of uterine scar from previous surgery; Z80.3 Family history of malignant neoplasm of breast; Z98.1 Arthrodesis status; Z91.018 Allergy to other foods
CPT/HCPCS: 36410; 36415; 70450; 71046; 78315; 80048; 80053; 81001; 82085; 82164; 82306; 82550; 82607; 82652; 83516; 83605; 84165; 84550; 85025; 85027; 85598; 85613; 85652; 85730; 85732; 86038; 86060; 86140; 86160; 86162; 86200; 86225; 86235; 86255; 86334; 86431; 86803; 86812; 87040; 87340; 93970; 96365; 96375; 99284

== ENCOUNTER → 2019-04-22 | Outpatient (CLI) | payer MEDICARE, OTHER ==
[2019-04-22 14:50] LABS: Basophils % (A) 1 %; Eosinophils # (A) 0.1 k/uL (0-0.7); Eosinophils % (A) 1 %; HCT 34.5 % (34.0-46.0); HGB 10.9 gm/dL (11.4-16.0); Hypochromasia Moderate; Lymphocytes # (A) 1.3 k/uL (1.0-4.8); Lymphocytes % (A) 25 %; MCH 34.1 pg (25.0-35.0); MCHC 31.5 g/dL (31.0-37.0); MCV 108.4 fL (80.0-100.0); Macrocytosis Moderate; Monocytes # (A) 0.2 k/uL (0-1.0); Monocytes % (A) 5 %; Neutrophils # (A) 3.5 k/uL (1.3-7.7); Neutrophils % (A) 67 %; Platelet Count 243 k/uL (150-450); RBC 3.18 m/uL (3.80-5.40); RDW 12.8 % (11.5-15.5); WBC 5.2 k/uL (3.8-10.6)
[2019-04-22 18:46] LABS: African American GFR (CKD) 49.9 (60.0-200.0); Albumin 4.4 g/dL (3.80-4.90); Albumin/Globulin Ratio 2.93 (1.60-3.17); Anion Gap 8.9 mmol/L (4.00-12.00); BUN/Creat Ratio 16.92 Ratio (12.00-20.00); Calcium 9.1 mg/dL (8.7-10.3); Carbon Dioxide 21.1 mmol/L (21.6-31.8); Chol/HDL Ratio 1.81; Globulin 1.5 g/dL (1.6-3.3); LDL Cholesterol,Calculated 40.6 mg/dL (0.0-131.0); Potassium 4.2 mmol/L (3.5-5.5); Total Bilirubin 0.4 mg/dL (0.3-1.2); Total Protein 5.9 g/dL (6.2-8.2); Uric Acid 5.7 mg/dL (2.9-7.7); VLDL Calculation 13.4 mg/dL (5.00-40.00)
[2019-04-22 21:18] LABS: Hemoglobin A1C 4.8 % (4.0-6.0)
== END | disposition home or self-care (01) ==
LOC: LABWHC1 13:23
PROVIDERS: ATTEND Internal Medicine
DX: R73.9 Hyperglycemia, unspecified (principal); I10 Essential (primary) hypertension; E78.5 Hyperlipidemia, unspecified
CPT/HCPCS: 36415; 80053; 80061; 83036; 83735; 84443; 84550; 85025

== ENCOUNTER 2019-05-08 12:52 | Emergency (ER) | payer MEDICARE, OTHER ==
[2019-05-08 13:17] VITALS: TEMP 98.6
[2019-05-08] MEDS ORDERED: MORPHINE SULFATE 4 MG/ML SYRINGE IV STA (13:24)
--- NOTE | 2019-05-08 14:27 | ED ---
Skin/Abscess/FB HPI - General Chief complaint: Skin/Abscess/Foreign Body Stated complaint: Poss cellulitis Time Seen by Provider: 05/08/19 13:17 Source: patient, family, RN notes reviewed, old records reviewed Mode of arrival: wheelchair Limitations: no limitations - History of Present Illness Initial comments: Patient is a 63-year-old female with multiple complaints. She reports that she fell approximately one month ago, landed on her left hip and had bruising at that time. She reports she's had persistent pain since that time with induration or certain movements. She also complains of redness and swelling and pain over the dorsum of her left foot and ankle. She has history of erythema nodosum related to lupus..Patient reprots that she had the rash over foot nad leg for the past week, and couldn't take the pain anymore. Denies fevers or c hills. Denies breaks in skin. - Related Data Home Medications Medication Instructions Recorded Confirmed Gabapentin [Neurontin] 300 mg PO TID 04/14/15 11/05/18 DULoxetine HCL [Cymbalta] 60 mg PO DAILY 05/24/17 11/05/18 Ergocalciferol [Vitamin D2 50,000 unit PO MO 05/24/17 11/05/18 (DRISDOL)] Folic Acid 1 mg PO DAILY 05/24/17 11/05/18 Magnesium Oxide [Mag-Ox] 400 mg PO BID 05/24/17 11/05/18 traZODone HCL 150 mg PO HS 02/27/18 11/05/18 ALPRAZolam [Xanax] 1 mg PO HS 07/10/18 11/05/18 Dicyclomine [Bentyl] 20 mg PO BID 07/10/18 11/05/18 Loteprednol Etabonate [Lotemax] 1 drop BOTH EYES BID 07/10/18 11/05/18 Olopatadine HCl [Pataday] 1 drop BOTH EYES BID 07/10/18 11/05/18 Sodium Bicarbonate 325 mg PO BID 07/10/18 11/05/18 Loperamide HCl [Imodium A-D] 2 mg PO TID 11/05/18 11/05/18 Potassium Chloride ER [K-Dur 20] 20 meq PO Q48H 05/13/19 05/13/19 Previous Rx's Medication Instructions Recorded tiZANidine [Zanaflex] 4 mg PO HS #30 tab 07/12/18 Famotidine [Pepcid] 20 mg PO DAILY #30 tab 11/08/18 predniSONE 20 mg PO DAILY #14 tab 11/08/18 predniSONE 10 mg PO DAILY #15 tab 05/08/19 Allergies Allergy/AdvReac Type Severity Reaction Status Date / Time alcohol Allergy Unknown Verified 05/08/19 13:03 aspirin Allergy Unknown Verified 05/08/19 13:03 divalproex sodium Allergy Unknown Verified 05/08/19 13:03 [From Depakote] erythromycin base Allergy Unknown Verified 05/08/19 13:03 ketorolac [From Toradol] Allergy Unknown Verified 05/08/19 13:03 Penicillins Allergy Unknown Verified 05/08/19 13:03 shellfish derived [Shellfish] Allergy Unknown Verified 05/08/19 13:03 strawberry Allergy Unknown Verified 05/08/19 13:03 Sulfa (Sulfonamide Allergy Unknown Verified 05/08/19 13:03 Antibiotics) Review of Systems ROS Statement: Those systems with pertinent positive or pertinent negative responses have been documented in the HPI. ROS Other: All systems not noted in ROS Statement are negative. Past Medical History Past Medical History: Cancer, CVA/TIA, Fibromyalgia Additional Past Medical History / Comment(s): Lupus, TIA, right hand tendons severed, closed head injury, multiple sclerosis History of Any Multi-Drug Resistant Organisms: C-DIFF Date of last positivie culture/infection: 2014 Past Surgical History: Appendectomy, Back Surgery, Section, Orthopedic Surgery Additional Past Surgical History / Comment(s): stomach cancer Past Anesthesia/Blood Transfusion Reactions: No Reported Reaction Past Psychological History: Bipolar Smoking Status: Current every day smoker Past Alcohol Use History: None Reported Past Drug Use History: None Reported - Past Family History Father Additional Family Medical History / Comment(s): Father is alive with history of diabetes and stomach problems. Mother Additional Family Medical History / Comment(s): Mother has history of diabetes, coronary artery disease and COPD. Sister(s) Additional Family Medical History / Comment(s): Patient has sisters all have female problems. She does state there is breast cancer history in her aunt. Son(s) Additional Family Medical History / Comment(s): Patient has one son with no major medical problems. General Exam - General Exam Comments Initial Comments: 63 year old female, moderate discomfort. Limitations: no limitations General appearance: alert, in no apparent distress Head exam: Present: atraumatic, normocephalic, normal inspection Eye exam: Present: normal appearance, PERRL, EOMI. Absent: scleral icterus, conjunctival injection, periorbital swelling ENT exam: Present: normal exam, mucous membranes moist Neck exam: Present: normal inspection. Absent: tenderness, meningismus, lymphadenopathy Respiratory exam: Present: normal lung sounds bilaterally. Absent: respiratory distress, wheezes, rales, rhonchi, stridor Cardiovascular Exam: Present: regular rate, normal rhythm, normal heart sounds. Absent: systolic murmur, diastolic murmur, rubs, gallop, clicks GI/Abdominal exam: Present: soft, normal bowel sounds. Absent: distended, tenderness, guarding, rebound, rigid Left Hip exam: Present: tenderness (over hip and greater trochanter. No brusiing or swelling. ) Knee exam: Present: normal inspection, full ROM Lower Leg exam: Present: normal inspection, full ROM, erythema (bruise appearance over sullivan. ) Ankle exam: Present: normal inspection, full ROM Foot/Toe exam: Present: erythema (bruise appearance over dorsum of foot, consistent with history of erythema nodosum. ). Absent: normal inspection Neurovascular tendon exam: Present: no vascular compromise Gait: observed and normal Back exam: Present: normal inspection Neurological exam: Present: alert, oriented X3, CN II-XII intact Psychiatric exam: Present: normal affect, normal mood Skin exam: Present: warm, dry, intact, normal color. Absent: rash Course Vital Signs 05/08/19 05/08/19 05/08/19 12:58 13:15 14:07 Temperature 98.5 F 98.6 F Pulse Rate 71 72 60 Respiratory 18 20 16 Rate Blood Pressure 136/65 156/78 95/81 O2 Sat by Pulse 97 96 97 Oximetry 05/08/19 05/08/19 15:00 16:05 Temperature Pulse Rate 53 L 57 L Respiratory 18 16 Rate Blood Pressure 128/75 132/74 O2 Sat by Pulse 99 Oximetry Medical Decision Making - Medical Decision Making 63 year old female presents with hip pain 1 month post fall, from L hip. She is ambulatory. She also complains of painful rash of erythema nodosum over left foot and leg. Patient has no other symptoms at this time. Xray is negative for fracture. Hip xray shows concern for femoral acetabular impingement. Patient labs show no acute changes. Patient advise dto use antiinflammatory medication and close PCP follow up and ortho follow up for hip pain. Patient does exhibit some drug seeking behaviour repeatedly asking for narcotic pain medication. Discussed antiinflammatory medication and only starter pack for pain meds for DC. - Lab Data Result diagrams: 05/08/19 14:05 05/08/19 14:05 Lab Results 05/08/19 05/08/19 05/08/19 Range/Units 14:05 14:05 14:05 WBC 4.3 (3.8-10.6) k/uL RBC 3.07 L (3.80-5.40) m/uL Hgb 10.0 L (11.4-16.0) gm/dL Hct 32.1 L (34.0-46.0) % MCV 104.4 H (80.0-100.0) fL MCH 32.6 (25.0-35.0) pg MCHC 31.2 (31.0-37.0) g/dL RDW 12.8 (11.5-15.5) % Plt Count 185 (150-450) k/uL Neutrophils % (Manual) 74 % Lymphocytes % (Manual) 16 % Monocytes % (Manual) 7 % Eosinophils % (Manual) 3 % Neutrophils # (Manual) 3.18 (1.3-7.7) k/uL Lymphocytes # (Manual) 0.69 L (1.0-4.8) k/uL Monocytes # (Manual) 0.30 (0-1.0) k/uL Eosinophils # (Manual) 0.13 (0-0.7) k/uL Nucleated RBCs 0 (0-0) /100 WBC Manual Slide Review Performed Hypochromasia Slight Macrocytosis Slight PT 9.8 (9.0-12.0) sec INR 0.9 (<1.2) APTT 30.5 H (22.0-30.0) sec Sodium 140 (137-145) mmol/L Potassium 3.8 (3.5-5.1) mmol/L Chloride 111 H (98-107) mmol/L Carbon Dioxide 20 L (22-30) mmol/L Anion Gap 9 mmol/L BUN 17 (7-17) mg/dL Creatinine 1.41 H (0.52-1.04) mg/dL Est GFR (CKD-EPI)AfAm 45 (>60 ml/min/1.73 sqM) Est GFR (CKD-EPI)NonAf 39 (>60 ml/min/1.73 sqM) Glucose 74 (74-99) mg/dL Calcium 8.9 (8.4-10.2) mg/dL - Radiology Data Radiology results: report reviewed Foot xray show no fracture. Tibia No acute fracture or dislocation in the left tibia or fibula. Mild generalize subcutaneous edema. No radio break foreign body or osseous ulceration. No radiographics Chiquis of osteomyelitis. Hip and pelvis xray show Diffuse osteopenia and arthritis changes. Correlate for femoral acetabular impingement no definite acute fracture. Disposition Clinical Impression: Femoral acetabular impingement, Erythema nodosum Disposition: HOME SELF-CARE Condition: Good Additional Instructions: Patient advised to take his temperature medication such as Motrin Tylenol. He continues the steroids as prescribed as well. Follow-up with primary care physician. Return to the emergency department if any alarming signs or symptoms occur. Follow-up with orthopedic as well for the hip pain. Prescriptions: predniSONE 10 mg PO DAILY #15 tab Is patient prescribed a controlled substance at d/c from ED?: No Referrals: Meseret Haq MD [Primary Care Provider] - 1-2 days Filemon Fischer MD [STAFF PHYSICIAN] - 1-2 days Time of Disposition: 15:38
[2019-05-08 14:30] LABS: INR 0.9 (<1.2); Partial Thromboplastin Time 30.5 sec (22.0-30.0); Prothrombin Time 9.8 sec (9.0-12.0)
[2019-05-08 14:42] LABS: HCT 32.1 % (34.0-46.0); Hypochromasia Slight; MCH 32.6 pg (25.0-35.0); MCHC 31.2 g/dL (31.0-37.0); MCV 104.4 fL (80.0-100.0); Macrocytosis Slight; Mean Platelet Volume 7.1; Platelet Count 185 k/uL (150-450); RBC 3.07 m/uL (3.80-5.40); RDW 12.8 % (11.5-15.5); WBC 4.3 k/uL (3.8-10.6)
--- NOTE | 2019-05-08 14:44 | XR ---
EXAMINATION TYPE: XR tibia fibula LT DATE OF EXAM: 05/08/2019 CLINICAL HISTORY: Left lower extremity pain. Fall one month prior. Redness and swelling of the left l ower extremity with possible cellulitis. TECHNIQUE: Two views of the left leg are obtained. COMPARISON: None. FINDINGS: There is diffuse osseous demineralization seen. There is no acute fracture or dislocation seen in the left tibia or fibula. The left knee and ankle joints appear within normal limits. No oss eous erosions or periosteal reaction seen. No radiopaque foreign body. There is mild and diffuse subc utaneous edema predominating over the mid and distal lower extremity. This does not extend to the ank le joint. Incidentally noted chondrocalcinosis that is subtle of the medial and lateral compartments of the knee. IMPRESSION: There is no acute fracture or dislocation seen in the left tibia or fibula. Mild general ized subcutaneous edema. No radiopaque foreign body nor osseous ulceration. No radiographic sequela o f osteomyelitis.
[2019-05-08 14:45] LABS: Calcium 8.9 mg/dL (8.4-10.2); Potassium 3.8 mmol/L (3.5-5.1)
--- NOTE | 2019-05-08 14:48 | XR ---
EXAMINATION TYPE: XR Hip LT and AP Pelvis DATE OF EXAM: 05/08/2019 COMPARISON: NONE HISTORY: Pain TECHNIQUE: A single AP view of the pelvis is obtained. Two views of the left hip are obtained. FINDINGS: There is postsurgical change involving the lower lumbar spine and right hip. Arthropathy o f the hips noted and there is diffuse osteopenia. Heterotopic ossification of the right noted and the re is deformity of the right iliac wing compatible with previous surgery. Hypertrophic change of the acetabulum is seen. Small bone infarct involving the proximal suspected. IMPRESSION: 1. Diffuse osteopenia and arthritic change. Correlate for femoral acetabular impingement. 2. No definite acute fracture.
--- NOTE | 2019-05-08 14:49 | XR ---
EXAMINATION TYPE: XR foot complete LT DATE OF EXAM: 05/08/2019 COMPARISON: NONE HISTORY: Pain TECHNIQUE: Three views are submitted. FINDINGS: The osseous structures are intact. There is no acute fracture or dislocation. Joint spaces are p reserved. Diffuse osteopenia noted. Soft tissue edema noted IMPRESSION: 1. No acute fracture or dislocation. If symptoms persist, follow-up exam in 7 to 10 days could be ob tained.
[2019-05-08 15:08] LABS: Eosinophils # (M) 0.13 k/uL (0-0.7); Lymphocytes # (M) 0.69 k/uL (1.0-4.8); Neutrophils % (M) 74 %; Nucleated Red Blood Cells 0 /100 WBC (0-0); Total Cells Counted 100
[2019-05-08] MEDS ORDERED: ACET/COD 300 MG/30 MG STARTER PACK 6 TAB BTL PO STA (15:38)
[2019-05-08 16:07] VITALS: BP 132/74; PULSE 57; RESP 16
== END 2019-05-08 16:26 | disposition home or self-care (01) ==
LOC: EC 12:52
DX: M25.852 Other specified joint disorders, left hip (principal); L52 Erythema nodosum; F31.9 Bipolar disorder, unspecified; G35 Multiple sclerosis; M79.7 Fibromyalgia; F17.200 Nicotine dependence, unspecified, uncomplicated; Z79.899 Other long term (current) drug therapy; Z88.6 Allergy status to analgesic agent; Z88.0 Allergy status to penicillin; Z88.1 Allergy status to other antibiotic agents; Z88.2 Allergy status to sulfonamides; Z91.013 Allergy to seafood; Z88.5 Allergy status to narcotic agent; Z91.018 Allergy to other foods; Z91.048 Other nonmedicinal substance allergy status; Z88.8 Allergy status to other drugs, medicaments and biological substances; Z86.73 Personal history of transient ischemic attack (TIA), and cerebral infarction without residual deficits
CPT/HCPCS: 36415; 80048; 85025; 85610; 85730; 73502; 73590; 73630; 99284; 96374; J2270

== ENCOUNTER → 2019-06-13 | Outpatient (CLI) | payer MEDICARE, OTHER ==
--- NOTE | 2019-06-13 11:16 | BD ---
EXAMINATION TYPE: Axial Bone Density DATE OF EXAM: 06/13/2019 COMPARISON: 12.19.2016 CLINICAL HISTORY: 63 YR OLD FEMALE...ICD-10 CODE: M89.9 DISORDER OF BONE Height: 61.4 Weight: 115 FRAX RISK QUESTIONS: Family History (Parent hip fracture): YES, BUT NO FX Glucocorticoids (More than 3mos): YES (Ex: prednisone, prednisolone, methylprednisolone, dexamethasone, and hydrocortisone). History of Fracture in Adulthood: YES Secondary Osteoporosis: YES 3. Menopause before 45: YES AT 39 YRS OLD Current Tobacco Use: YES RISK FACTORS HISTORY OF: Hip Fracture RT HIP...AT 54 YRS OLD Spine Fracture: YES, IN 1974, AA, SURGICAL REPAIR Surgery to Spine AND RT HIP, SPINAL FUSION AND RT HIP REPAIR PLATE AND SCREWS, FX Family History of Osteoporosis: YES, MOTHER AND FATHER Diet low in dairy products/other sources of calcium: YES Postmenopausal woman: YES AT AGE 39 YRS OLD Lost more than 2 inches in height since high school: YES Hyperparathyroidism: NO Adrenal Insufficiency: NO MEDICATIONS: Prednisone or other steroids: YES, FOR ASTHMA, INHALERS AND STEROIDAL MEDS, AND TREATMENTS Additional Medications: XANAX, CYMBALTA, REFLUX MEDS, CANCER IN SMALL INTESTINE, CALCIUM AND VIT D, F OLIC ACID, MAGNESIUM, POTASSIUM Additional History: ARTHRITIS, CA OF SM INTESTINE, REFLUX, RENAL FAILURE IN PAST EXAM MEASUREMENTS: Bone mineral densitometry was performed using the [employer] System. SPINAL FUSION......SPINE NOT SCANNED Bone mineral density about the L hip (g/cm2): 0.715 T Score values are as follows: -----L Neck: -2.2 -----L Total: -2.3 Bone mineral density has: Increased 1.6% since study of: 12.19.2016 FRAX%s: THERE IS A 29.4% CHANCE FOR A MAJOR OSTEOPOROTIC FX AND A 10.6% FOR HIP.....PROBABILITY FOR FX IN 10 YRS TIME Bone mineral density about the L Wrist (g/cm2): 0.367 T Score values are as follows: -----Dist. R+U: -4.9 -----Prox. R+U: -3.9 -----Radius total: -4.6 Bone mineral density FIRST BONE DENSITY SCAN OF HER FOREARM IMPRESSION: Osteoporosis (T Score less than -2.5). There is increased fracture risk and therapy is usually indicated based on age. Re-Screen 1-2 years. NOTE: T-SCORE=SD OF THE YOUNG ADULT MEAN.
--- NOTE | 2019-06-14 14:53 | MM ---
Reason for exam: screening (asymptomatic). Last mammogram was performed 1 year and 1 month ago. History: Patient is postmenopausal and has history of other cancer at age 30. Family history of breast cancer in aunt at age 60. Took estrogen for 12 years 1 month beginning at age 38. Physical Findings: A clinical breast exam by your physician is recommended on an annual basis and results should be correlated with mammographic findings. MG 3D Screening Mammo W/Cad Bilateral CC and MLO view(s) were taken. Prior study comparison: May 02, 2018, bilateral MG 3d screening mammo w/cad. December 19, 2016, bilateral MG screening mammo w CAD. The breast tissue is heterogeneously dense. This may lower the sensitivity of mammography. Stable benign calcifications. There is no discrete abnormality. No significant changes when compared with prior studies. ASSESSMENT: Negative, BI-RAD 1 RECOMMENDATION: Routine screening mammogram of both breasts in 1 year.
== END | disposition home or self-care (01) ==
LOC: RADMAMWWP 09:38
PROVIDERS: ATTEND Internal Medicine
DX: Z12.31 Encounter for screening mammogram for malignant neoplasm of breast (principal); M81.0 Age-related osteoporosis without current pathological fracture
CPT/HCPCS: 77063; 77067; 77080

== ENCOUNTER → 2019-07-24 | Outpatient (CLI) | payer MEDICARE, OTHER ==
[~2019-07-24] MED LIST: DENOSUMAB 60 MG/ML 1 ML SYRINGE SQ NR
[2019-07-24 13:39] VITALS: BP 180/87; PULSE 77; RESP 16; TEMP 97.8
== END | disposition home or self-care (01) ==
LOC: PROCWHC3 13:23
PROVIDERS: ATTEND Internal Medicine
DX: M81.0 Age-related osteoporosis without current pathological fracture (principal)
CPT/HCPCS: 96372; J0897

== ENCOUNTER → 2019-07-24 | Outpatient (CLI) | payer MEDICARE, OTHER ==
[2019-07-24 11:41] LABS: Basophils # (A) 0.1 k/uL (0-0.2); Basophils % (A) 1 %; Eosinophils # (A) 0.1 k/uL (0-0.7); Eosinophils % (A) 1 %; HCT 32.6 % (34.0-46.0); HGB 10.1 gm/dL (11.4-16.0); Hypochromasia Slight; Lymphocytes % (A) 16 %; MCH 30.8 pg (25.0-35.0); MCHC 31.2 g/dL (31.0-37.0); MCV 98.9 fL (80.0-100.0); Monocytes # (A) 0.4 k/uL (0-1.0); Monocytes % (A) 6 %; Neutrophils % (A) 76 %; Platelet Count 249 k/uL (150-450); RBC 3.29 m/uL (3.80-5.40); RDW 14.4 % (11.5-15.5); WBC 6.6 k/uL (3.8-10.6)
[2019-07-24 12:59] LABS: Erythrocyte Sedimentation Rate 40 mm/hr (0-20)
--- NOTE | 2019-07-24 14:40 | XR ---
Right hand HISTORY: Right hand pain and swelling, trauma 10 days prior 3 views the right hand Bone mineralization is decreased. Joint spaces and alignment are maintained in the hand. Suspect some chondrocalcinosis. Joint space loss present at the radiocarpal joint. There is soft tissue swelling present. IMPRESSION: No fracture or dislocation.
[2019-07-24 19:26] LABS: African American GFR (CKD) 45.6 (60.0-200.0); Albumin 4.7 g/dL (3.80-4.90); Albumin/Globulin Ratio 2.76 (1.60-3.17); Anion Gap 10.8 mmol/L (4.00-12.00); BUN/Creat Ratio 12.86 Ratio (12.00-20.00); Calcium 8.9 mg/dL (8.7-10.3); Carbon Dioxide 20.2 mmol/L (21.6-31.8); Globulin 1.7 g/dL (1.6-3.3); Non-African American GFR(CKD) 39.3 (60.0-200.0); Potassium 4.2 mmol/L (3.5-5.5); Total Bilirubin 0.3 mg/dL (0.3-1.2); Total Protein 6.4 g/dL (6.2-8.2); Uric Acid 4.3 mg/dL (2.9-7.7)
== END | disposition home or self-care (01) ==
LOC: LABWHC1 11:11
PROVIDERS: ATTEND Internal Medicine
DX: M79.641 Pain in right hand (principal); D63.1 Anemia in chronic kidney disease; N18.3 Chronic kidney disease, stage 3 (moderate)
CPT/HCPCS: 36415; 80053; 84550; 85025; 85652; 86431

== ENCOUNTER 2019-07-29 14:15 | Emergency (ER) | payer MEDICARE, OTHER ==
[2019-07-29 14:20] VITALS: RESP 16; TEMP 98
--- NOTE | 2019-07-29 15:29 | ED ---
Recheck HPI - General Source: patient Mode of arrival: ambulatory Limitations: no limitations <Treva Bishop - Last Filed: 07/29/19 16:33> <Daniel Lee - Last Filed: 07/29/19 16:42> - General Chief Complaint: Recheck/Abnormal Lab/Rx Stated Complaint: rt hand pain Time Seen by Provider: 07/29/19 14:24 - History of Present Illness Initial Comments: Patient is a 63-year-old female presenting to emergency Department with complaints of right hand pain and swelling x 6 days. She states she had an appointment with her PCP on Monday and did get an x-ray of her right hand. Patient states she did have a fall a few weeks ago and they were concerned she had a fracture. The x-ray was negative. Patient states she's been having some redness, pain as well as swelling of her right hand. Patient states she has a history of cellulitis but never on her right hand. Patient denies fever, chills, nausea, vomiting, diarrhea, shortness of breath, chest pain. She has no other complaints at this time. She denies history of gout. She has no other complaints. Upon arrival to ER, vital signs are stable. (Treva Bishop) - Related Data Home Medications Medication Instructions Recorded Confirmed Gabapentin [Neurontin] 300 mg PO TID 04/14/15 07/24/19 DULoxetine HCL [Cymbalta] 60 mg PO DAILY 05/24/17 07/24/19 Ergocalciferol [Vitamin D2 50,000 unit PO MO 05/24/17 07/24/19 (DRISDOL)] Folic Acid 1 mg PO DAILY 05/24/17 07/24/19 Magnesium Oxide [Mag-Ox] 400 mg PO BID 05/24/17 07/24/19 traZODone HCL 150 mg PO HS 02/27/18 07/24/19 ALPRAZolam [Xanax] 1 mg PO HS 07/10/18 07/24/19 Dicyclomine [Bentyl] 20 mg PO BID 07/10/18 07/24/19 Loteprednol Etabonate [Lotemax] 1 drop BOTH EYES BID 07/10/18 07/24/19 Olopatadine HCl [Pataday] 1 drop BOTH EYES BID 07/10/18 07/24/19 Sodium Bicarbonate 325 mg PO BID 07/10/18 07/24/19 Loperamide HCl [Imodium A-D] 2 mg PO TID 11/05/18 07/24/19 Potassium Chloride ER [K-Dur 20] 20 meq PO Q48H 11/05/18 07/24/19 Previous Rx's Medication Instructions Recorded Famotidine [Pepcid] 20 mg PO DAILY #30 tab 11/08/18 predniSONE 10 mg PO DAILY #15 tab 05/08/19 Cephalexin [Keflex] 500 mg PO Q6HR 7 Days #28 cap 07/29/19 Allergies Allergy/AdvReac Type Severity Reaction Status Date / Time alcohol Allergy Unknown Verified 07/29/19 14:17 aspirin Allergy Unknown Verified 07/29/19 14:17 divalproex sodium Allergy Unknown Verified 07/29/19 14:17 [From Depakote] erythromycin base Allergy Unknown Verified 07/29/19 14:17 ketorolac [From Toradol] Allergy Unknown Verified 07/29/19 14:17 Penicillins Allergy Unknown Verified 07/29/19 14:17 shellfish derived [Shellfish] Allergy Unknown Verified 07/29/19 14:17 strawberry Allergy Unknown Verified 07/29/19 14:17 Sulfa (Sulfonamide Allergy Unknown Verified 07/29/19 14:17 Antibiotics) Review of Systems ROS Other: All systems not noted in ROS Statement are negative. <Treva Bishop - Last Filed: 07/29/19 16:33> ROS Other: All systems not noted in ROS Statement are negative. <Daniel Lee - Last Filed: 07/29/19 16:42> ROS Statement: Those systems with pertinent positive or pertinent negative responses have been documented in the HPI. Past Medical History Past Medical History: Cancer, CVA/TIA, Fibromyalgia Additional Past Medical History / Comment(s): Lupus, TIA, right hand tendons severed, closed head injury, multiple sclerosis History of Any Multi-Drug Resistant Organisms: C-DIFF Date of last positivie culture/infection: 2014 Past Surgical History: Appendectomy, Back Surgery, Section, Orthopedic Surgery Additional Past Surgical History / Comment(s): stomach cancer Past Anesthesia/Blood Transfusion Reactions: No Reported Reaction Past Psychological History: Bipolar Smoking Status: Current every day smoker Past Alcohol Use History: None Reported Past Drug Use History: None Reported - Past Family History Father Additional Family Medical History / Comment(s): Father is alive with history of diabetes and stomach problems. Mother Additional Family Medical History / Comment(s): Mother has history of diabetes, coronary artery disease and COPD. Sister(s) Additional Family Medical History / Comment(s): Patient has sisters all have female problems. She does state there is breast cancer history in her aunt. Son(s) Additional Family Medical History / Comment(s): Patient has one son with no major medical problems. <Treva Bishop - Last Filed: 07/29/19 16:33> General Exam Limitations: no limitations <Treva Bishop - Last Filed: 07/29/19 16:33> - General Exam Comments Initial Comments: GENERAL: Well-appearing, well-nourished and in no acute distress. HEAD: Atraumatic, normocephalic. EYES: Pupils equal round and reactive to light, extraocular movements intact, sclera anicteric, conjunctiva are normal. ENT: TMs normal, nares patent, oropharynx clear without exudates. Moist mucous me mbranes. NECK: Normal range of motion, supple without lymphadenopathy or JVD. LUNGS: Breath sounds clear to auscultation bilaterally and equal. No wheezes rales or rhonchi. HEART: Regular rate and rhythm without murmurs, rubs or gallops. ABDOMEN: Soft, nontender, normoactive bowel sounds. No guarding, no rebound. No masses appreciated. : Deferred EXTREMITIES: Right hand is mildly tenderness to palpation, erythematous and mild swelling over the dorsal aspect of the right hand. Patient has full range of motion of the right wrist and fingers. Neurovascular intact. No clubbing or cyanosis. NEUROLOGICAL: Cranial nerves II through XII grossly intact. Normal speech, normal gait. PSYCH: Normal mood, normal affect. SKIN: Warm, Dry, normal turgor, no rashes or lesions noted. (Treva Bishop) Course <Daniel Lee - Last Filed: 07/29/19 16:42> Vital Signs 07/29/19 14:17 Temperature 98 F Pulse Rate 85 Respiratory 16 Rate Blood Pressure 187/80 O2 Sat by Pulse 99 Oximetry - Reevaluation(s) Reevaluation #1: 07/29/19 16:41 PA supervision: I did personally do a [id number] evaluation the patient did present with complaints of pain and some redness and swelling to her right hand and wrist area. She has have a history of lupus she does have a history of being worked up for gout recently the uric acid level is within normal limits. She does have arthritis. She denies a fevers chills or sweats. The hand does demonstrate evidence of erythema with increased localized temperature consistent with a superficial cellulitis. She does have full range of motion no sensorimotor vascular deficits. Patient will be placed on antibiotics and sent back to her doctor for reevaluation. I do agree with this assessment and plan at this time (Daniel Lee) Disposition Is patient prescribed a controlled substance at d/c from ED?: No <Treva Bishop - Last Filed: 07/29/19 16:33> <Daniel Lee - Last Filed: 07/29/19 16:42> Clinical Impression: Right hand pain, Cellulitis of right hand Disposition: HOME SELF-CARE Condition: Stable Instructions (If sedation given, give patient instructions): Cellulitis (ED) Additional Instructions: Please return to the Emergency Department if symptoms worsen or any other concerns. Follow-up with PCP and 1-3 days. Take antibiotic as prescribed. Prescriptions: Cephalexin [Keflex] 500 mg PO Q6HR 7 Days #28 cap Referrals: Meseret Haq MD [Primary Care Provider] - 1-2 days
[2019-07-29] MEDS ORDERED: ACET/COD 300 MG/30 MG STARTER PACK 6 TAB BTL PO STA (16:44)
[2019-07-29 16:53] VITALS: BP 167/76; PULSE 68
== END 2019-07-29 16:53 | disposition home or self-care (01) ==
LOC: EC 14:15
DX: L03.113 Cellulitis of right upper limb (principal); M79.7 Fibromyalgia; M32.9 Systemic lupus erythematosus, unspecified; G35 Multiple sclerosis; M19.90 Unspecified osteoarthritis, unspecified site; F31.9 Bipolar disorder, unspecified; F17.200 Nicotine dependence, unspecified, uncomplicated; Z88.0 Allergy status to penicillin; Z88.1 Allergy status to other antibiotic agents; Z88.2 Allergy status to sulfonamides; Z88.6 Allergy status to analgesic agent; Z88.8 Allergy status to other drugs, medicaments and biological substances; Z91.013 Allergy to seafood; Z91.018 Allergy to other foods; Z91.048 Other nonmedicinal substance allergy status; Z79.899 Other long term (current) drug therapy; Z85.028 Personal history of other malignant neoplasm of stomach; Z87.2 Personal history of diseases of the skin and subcutaneous tissue; Z91.81 History of falling; Z98.890 Other specified postprocedural states
CPT/HCPCS: 99283

== ENCOUNTER 2019-08-04 12:38 | Emergency (ER) | payer MEDICARE, OTHER ==
[2019-08-04 12:44] VITALS: RESP 18; TEMP 98.5
--- NOTE | 2019-08-04 13:47 | ED ---
Skin/Abscess/FB HPI - General Chief complaint: Skin/Abscess/Foreign Body Stated complaint: recheck - cellulitis rt arm Time Seen by Provider: 08/04/19 12:49 Source: patient Mode of arrival: ambulatory Limitations: no limitations - History of Present Illness Initial comments: Patient is a 63-year-old female presenting to the emergency department for a re check of her right hand. Patient was seen in the ER 1 week ago and was treated for a mild cellulitis of the right hand. Patient states returns today for a recheck because she feels like the pain is getting slightly worse. She has not followed up with her PCP. Patient states she thought she didn't have to follow- up until after her medication was done. Patient does have history of lupus, carpal tunnel. She has chronic pain. Patient denies any further trauma or injuries to her right hand. Patient has had recent lab work including uric acid which was normal. Recent x-ray of the right hand shows no acute abnormalities. Patient denies fever, chills, any other complaints today. On arrival to the ER her vitals are normal. - Related Data Home Medications Medication Instructions Recorded Confirmed Gabapentin [Neurontin] 300 mg PO TID 04/14/15 07/24/19 DULoxetine HCL [Cymbalta] 60 mg PO DAILY 05/24/17 07/24/19 Ergocalciferol [Vitamin D2 50,000 unit PO MO 05/24/17 07/24/19 (DRISDOL)] Folic Acid 1 mg PO DAILY 05/24/17 07/24/19 Magnesium Oxide [Mag-Ox] 400 mg PO BID 05/24/17 07/24/19 traZODone HCL 150 mg PO HS 02/27/18 07/24/19 ALPRAZolam [Xanax] 1 mg PO HS 07/10/18 07/24/19 Dicyclomine [Bentyl] 20 mg PO BID 07/10/18 07/24/19 Loteprednol Etabonate [Lotemax] 1 drop BOTH EYES BID 07/10/18 07/24/19 Olopatadine HCl [Pataday] 1 drop BOTH EYES BID 07/10/18 07/24/19 Sodium Bicarbonate 325 mg PO BID 07/10/18 07/24/19 Loperamide HCl [Imodium A-D] 2 mg PO TID 11/05/18 07/24/19 Potassium Chloride ER [K-Dur 20] 20 meq PO Q48H 11/05/18 07/24/19 Previous Rx's Medication Instructions Recorded Famotidine [Pepcid] 20 mg PO DAILY #30 tab 11/08/18 predniSONE 10 mg PO DAILY #15 tab 05/08/19 Cephalexin [Keflex] 500 mg PO Q6HR 7 Days #28 cap 07/29/19 Allergies Allergy/AdvReac Type Severity Reaction Status Date / Time alcohol Allergy Unknown Verified 08/04/19 12:41 aspirin Allergy Unknown Verified 08/04/19 12:41 divalproex sodium Allergy Unknown Verified 08/04/19 12:41 [From Depakote] erythromycin base Allergy Unknown Verified 08/04/19 12:41 ketorolac [From Toradol] Allergy Unknown Verified 08/04/19 12:41 Penicillins Allergy Unknown Verified 08/04/19 12:41 shellfish derived [Shellfish] Allergy Unknown Verified 08/04/19 12:41 strawberry Allergy Unknown Verified 08/04/19 12:41 Sulfa (Sulfonamide Allergy Unknown Verified 08/04/19 12:41 Antibiotics) Review of Systems ROS Statement: Those systems with pertinent positive or pertinent negative responses have been documented in the HPI. ROS Other: All systems not noted in ROS Statement are negative. Past Medical History Past Medical History: Cancer, CVA/TIA, Fibromyalgia Additional Past Medical History / Comment(s): Lupus, TIA, right hand tendons severed, closed head injury, multiple sclerosis History of Any Multi-Drug Resistant Organisms: C-DIFF Date of last positivie culture/infection: 2014 Past Surgical History: Appendectomy, Back Surgery, Section, Orthopedic Surgery Additional Past Surgical History / Comment(s): stomach cancer Past Anesthesia/Blood Transfusion Reactions: No Reported Reaction Past Psychological History: Bipolar Smoking Status: Current every day smoker Past Alcohol Use History: None Reported Past Drug Use History: None Reported - Past Family History Father Additional Family Medical History / Comment(s): Father is alive with history of diabetes and stomach problems. Mother Additional Family Medical History / Comment(s): Mother has history of diabetes, coronary artery disease and COPD. Sister(s) Additional Family Medical History / Comment(s): Patient has sisters all have female problems. She does state there is breast cancer history in her aunt. Son(s) Additional Family Medical History / Comment(s): Patient has one son with no major medical problems. General Exam - General Exam Comments Initial Comments: GENERAL: Well-appearing, well-nourished and in no acute distress. HEAD: Atraumatic, normocephalic. EYES: Pupils equal round and reactive to light, extraocular movements intact, sclera anicteric, conjunctiva are normal. ENT: Moist mucous membranes. NECK: Normal range of motion, supple without lymphadenopathy or JVD. LUNGS: Breath sounds clear to auscultation bilaterally and equal. No wheezes rales or rhonchi. HEART: Regular rate and rhythm without murmurs, rubs or gallops. ABDOMEN: Soft, nontender, normoactive bowel sounds. No guarding, no rebound. No masses appreciated. EXTREMITIES: Normal range of motion of the right hand, wrist, forearm. No swelling, sensation is equal in bilateral upper trauma days. NEUROLOGICAL: Normal speech, normal gait. PSYCH: Normal mood, normal affect. SKIN: Warm, Dry, normal turgor, no rashes or lesions noted. No erythema on the right hand, no signs cellulitis. Limitations: no limitations Course Vital Signs 08/04/19 08/04/19 12:41 14:08 Temperature 98.5 F Pulse Rate 97 78 Respiratory 18 18 Rate Blood Pressure 189/84 171/90 O2 Sat by Pulse 98 99 Oximetry Medical Decision Making - Medical Decision Making Patient is a 63-year-old female presenting for a recheck of her right hand cellulitis. She continues to have mild pain. She does have a history of lupus, carpal tunnel, chronic pain. I discussed with patient that this could be related to her carpal tunnel. She will follow up with orthopedics or her PCP. She is requesting pain medicine. Patient will be given starter pack of Tylenol 3. She is in agreement with this plan of care. She'll finish her medication for cellulitis. Return parameters were discussed with the patient she verbalized understanding. Case discussed with Dr. Armando. Disposition Clinical Impression: Right hand pain Disposition: HOME SELF-CARE Condition: Stable Instructions (If sedation given, give patient instructions): Arthralgia (ED) Additional Instructions: Please return to the Emergency Department if symptoms worsen or any other concerns. Follow-up with PCP as well as orthopedics. Is patient prescribed a controlled substance at d/c from ED?: No Referrals: Meseret Haq MD [Primary Care Provider] - 1-2 days Chris Borrero DO [Medical Doctor] - 1-2 days
[2019-08-04] MEDS ORDERED: ACET/COD 300 MG/30 MG STARTER PACK 6 TAB BTL PO STA (13:52)
[2019-08-04 14:09] VITALS: BP 171/90; PULSE 78
== END 2019-08-04 14:11 | disposition home or self-care (01) ==
LOC: EC 12:38
DX: M79.641 Pain in right hand (principal); G89.29 Other chronic pain; M32.9 Systemic lupus erythematosus, unspecified; M79.7 Fibromyalgia; G35 Multiple sclerosis; F31.9 Bipolar disorder, unspecified; F17.200 Nicotine dependence, unspecified, uncomplicated; Z88.0 Allergy status to penicillin; Z88.1 Allergy status to other antibiotic agents; Z88.2 Allergy status to sulfonamides; Z88.6 Allergy status to analgesic agent; Z88.8 Allergy status to other drugs, medicaments and biological substances; Z91.013 Allergy to seafood; Z91.018 Allergy to other foods; Z79.899 Other long term (current) drug therapy; Z87.2 Personal history of diseases of the skin and subcutaneous tissue; Z85.028 Personal history of other malignant neoplasm of stomach; Z87.39 Personal history of other diseases of the musculoskeletal system and connective tissue; Z98.890 Other specified postprocedural states
CPT/HCPCS: 99282

== ENCOUNTER 2019-08-10 08:38 | Emergency (ER) | payer MEDICARE, OTHER ==
[2019-08-10] MEDS ORDERED: SODIUM CHLORIDE 0.9% 500 ML 500 ML IV ONE (08:51)
[2019-08-10] MEDS ORDERED: ACETAMINOPHEN TAB 500 MG TAB PO STA (08:51)
--- NOTE | 2019-08-10 08:55 | ED ---
General Adult HPI - General Stated complaint: Dehydration Time Seen by Provider: 08/10/19 08:38 Source: patient, RN notes reviewed, old records reviewed - History of Present Illness Initial comments: This is a 63-year-old female presents emergency department stating that for the last 2 weeks she has had swelling and pain in her right hand and wrist. Patient states she was treated with antibiotics 2 weeks ago and told it was cellulitis however the pain is not gone away and the swelling persists and now patient states she has some redness on the dorsal aspect anterior aspect of her left foot at the base of her third and fourth toe. Patient also states she feels nauseous. In the ER with an oral temperature 100.2 so she felt warmer. Patient denies any cough patient is a difficulty breathing first breath. Patient denies abdominal pain patient has nausea vomiting diarrhea. Patient isn't dysuria hematuria urinary frequency. Patient's only complaint is that hand and wrist pain on the right and the redness to the left foot. - Related Data Home Medications Medication Instructions Recorded Confirmed Gabapentin [Neurontin] 300 mg PO TID 04/14/15 07/24/19 DULoxetine HCL [Cymbalta] 60 mg PO DAILY 05/24/17 07/24/19 Ergocalciferol [Vitamin D2 50,000 unit PO MO 05/24/17 07/24/19 (DRISDOL)] Folic Acid 1 mg PO DAILY 05/24/17 07/24/19 Magnesium Oxide [Mag-Ox] 400 mg PO BID 05/24/17 07/24/19 traZODone HCL 150 mg PO HS 02/27/18 07/24/19 ALPRAZolam [Xanax] 1 mg PO HS 07/10/18 07/24/19 Dicyclomine [Bentyl] 20 mg PO BID 07/10/18 07/24/19 Loteprednol Etabonate [Lotemax] 1 drop BOTH EYES BID 07/10/18 07/24/19 Olopatadine HCl [Pataday] 1 drop BOTH EYES BID 07/10/18 07/24/19 Sodium Bicarbonate 325 mg PO BID 07/10/18 07/24/19 Loperamide HCl [Imodium A-D] 2 mg PO TID 11/05/18 07/24/19 Potassium Chloride ER [K-Dur 20] 20 meq PO Q48H 11/05/18 07/24/19 Previous Rx's Medication Instructions Recorded Famotidine [Pepcid] 20 mg PO DAILY #30 tab 11/08/18 predniSONE 10 mg PO DAILY #15 tab 05/08/19 Cephalexin [Keflex] 500 mg PO Q6HR 7 Days #28 cap 07/29/19 Omeprazole 20 mg PO DAILY #5 capsule. 08/10/19 predniSONE [Deltasone] 20 mg PO DAILY #5 tab 08/10/19 Allergies Allergy/AdvReac Type Severity Reaction Status Date / Time alcohol Allergy Unknown Verified 08/04/19 12:41 aspirin Allergy Unknown Verified 08/04/19 12:41 divalproex sodium Allergy Unknown Verified 08/04/19 12:41 [From Depakote] erythromycin base Allergy Unknown Verified 08/04/19 12:41 ketorolac [From Toradol] Allergy Unknown Verified 08/04/19 12:41 Penicillins Allergy Unknown Verified 08/04/19 12:41 shellfish derived [Shellfish] Allergy Unknown Verified 08/04/19 12:41 strawberry Allergy Unknown Verified 08/04/19 12:41 Sulfa (Sulfonamide Allergy Unknown Verified 08/04/19 12:41 Antibiotics) Review of Systems ROS Statement: Those systems with pertinent positive or pertinent negative responses have been documented in the HPI. ROS Other: All systems not noted in ROS Statement are negative. Past Medical History Past Medical History: Cancer, CVA/TIA, Fibromyalgia Additional Past Medical History / Comment(s): Lupus, TIA, right hand tendons severed, closed head injury, multiple sclerosis History of Any Multi-Drug Resistant Organisms: C-DIFF Date of last positivie culture/infection: 2014 Past Surgical History: Appendectomy, Back Surgery, Section, Orthopedic Surgery Additional Past Surgical History / Comment(s): stomach cancer Past Anesthesia/Blood Transfusion Reactions: No Reported Reaction Past Psychological History: Bipolar Smoking Status: Current every day smoker Past Alcohol Use History: None Reported Past Drug Use History: None Reported - Past Family History Father Additional Family Medical History / Comment(s): Father is alive with history of diabetes and stomach problems. Mother Additional Family Medical History / Comment(s): Mother has history of diabetes, coronary artery disease and COPD. Sister(s) Additional Family Medical History / Comment(s): Patient has sisters all have female problems. She does state there is breast cancer history in her aunt. Son(s) Additional Family Medical History / Comment(s): Patient has one son with no major medical problems. General Exam - General Exam Comments Initial Comments: GENERAL: Patient is well-developed and well-nourished. Patient is nontoxic and well- hydrated and is in mild distress. ENT: Neck is soft and supple. No significant lymphadenopathy is noted. Oropharynx is clear. Moist mucous membranes. Neck has full range of motion without eliciting any pain. EYES: The sclera were anicteric and conjunctiva were pink and moist. Extraocular movements were intact and pupils were equal round and reactive to light. Eyelids were unremarkable. PULMONARY: Unlabored respirations. Good breath sounds bilaterally. No audible rales rhonchi or wheezing was noted. CARDIOVASCULAR: There is a regular rate and rhythm without any murmurs gallops or rubs. ABDOMEN: Soft and nontender with normal bowel sounds. No palpable organomegaly was noted. There is no palpable pulsatile mass. SKIN: Skin is clear with no lesions or rashes and otherwise unremarkable. NEUROLOGIC: Patient is alert and oriented x3. Cranial nerves II through XII are grossly intact. Motor and sensory are also intact. Normal speech, volume and content. Symmetrical smile. MUSCULOSKELETAL: Right hand is swollen about the wrist and radial aspect of the hand on the dorsum of the hand. Patient also has tenderness in that area as well. There is no erythema but the area does feel mildly warm. Patient's left anterior foot at the base of the third and fourth toes is red and tender and warm. LYMPHATICS: No significant lymphadenopathy is noted PSYCHIATRIC: Normal psychiatric evaluation. Course Vital Signs 08/10/19 08/10/19 08/10/19 08:51 08:55 09:00 Temperature 100.2 F H Pulse Rate 86 86 86 Respiratory 18 29 H 18 Rate Blood Pressure 160/79 160/79 O2 Sat by Pulse 99 99 99 Oximetry 08/10/19 08/10/19 10:00 10:24 Temperature Pulse Rate 79 79 Respiratory 15 15 Rate Blood Pressure 147/81 147/81 O2 Sat by Pulse 98 98 Oximetry Medical Decision Making - Medical Decision Making EKG shows a normal sinus rhythm at 86 bpm TX interval 232 QRS is 74 QT interval 392 QTC is 469. EKG shows no ST segment elevation or depression I spoke with Dr. Harris about the patient he wanted the patient follow-up with Dr. Haq early in the week. He also wanted the patient on steroids. Patient already has an appointment with Dr. Borrero. Hand x-ray shows no acute abnormality. - Lab Data Result diagrams: 08/10/19 09:12 08/10/19 09:12 Lab Results 08/10/19 08/10/19 08/10/19 Range/Units 09:12 09:12 09:12 WBC 9.5 (3.8-10.6) k/uL RBC 3.44 L (3.80-5.40) m/uL Hgb 10.6 L (11.4-16.0) gm/dL Hct 33.7 L (34.0-46.0) % MCV 98.0 (80.0-100.0) fL MCH 30.8 (25.0-35.0) pg MCHC 31.4 (31.0-37.0) g/dL RDW 14.9 (11.5-15.5) % Plt Count 326 (150-450) k/uL Neutrophils % 86 % Lymphocytes % 6 % Monocytes % 5 % Eosinophils % 1 % Basophils % 1 % Neutrophils # 8.2 H (1.3-7.7) k/uL Lymphocytes # 0.6 L (1.0-4.8) k/uL Monocytes # 0.5 (0-1.0) k/uL Eosinophils # 0.1 (0-0.7) k/uL Basophils # 0.1 (0-0.2) k/uL Hypochromasia Slight ESR 41 H (0-20) mm/hr Sodium 135 L (137-145) mmol/L Potassium 4.4 (3.5-5.1) mmol/L Chloride 108 H (98-107) mmol/L Carbon Dioxide 17 L (22-30) mmol/L Anion Gap 10 mmol/L BUN 15 (7-17) mg/dL Creatinine 1.11 H (0.52-1.04) mg/dL Est GFR (CKD-EPI)AfAm 60 (>60 ml/min/1.73 sqM) Est GFR (CKD-EPI)NonAf 52 (>60 ml/min/1.73 sqM) Glucose 119 H (74-99) mg/dL Plasma Lactic Acid Cristiano 1.1 (0.7-2.0) mmol/L Uric Acid (3.7-7.4) mg/dL Calcium 8.6 (8.4-10.2) mg/dL Total Bilirubin 0.8 (0.2-1.3) mg/dL AST 26 (14-36) U/L ALT 15 (4-34) U/L Alkaline Phosphatase 117 (38-126) U/L C-Reactive Protein 75.4 H (<10.0) mg/L Total Protein 6.9 (6.3-8.2) g/dL Albumin 4.1 (3.5-5.0) g/dL Urine Color Urine Appearance (Clear) Urine pH (5.0-8.0) Ur Specific [place] (1.001-1.035) Urine Protein (Negative) Urine Glucose (UA) (Negative) Urine Ketones (Negative) Urine Blood (Negative) Urine Nitrite (Negative) Urine Bilirubin (Negative) Urine Urobilinogen (<2.0) mg/dL Ur Leukocyte Esterase (Negative) Urine RBC (0-5) /hpf Urine WBC (0-5) /hpf Ur Squamous Epith Cells (0-4) /hpf Urine Bacteria (None) /hpf 08/10/19 08/10/19 Range/Units 09:12 09:58 WBC (3.8-10.6) k/uL RBC (3.80-5.40) m/uL Hgb (11.4-16.0) gm/dL Hct (34.0-46.0) % MCV (80.0-100.0) fL MCH (25.0-35.0) pg MCHC (31.0-37.0) g/dL RDW (11.5-15.5) % Plt Count (150-450) k/uL Neutrophils % % Lymphocytes % % Monocytes % % Eosinophils % % Basophils % % Neutrophils # (1.3-7.7) k/uL Lymphocytes # (1.0-4.8) k/uL Monocytes # (0-1.0) k/uL Eosinophils # (0-0.7) k/uL Basophils # (0-0.2) k/uL Hypochromasia ESR (0-20) mm/hr Sodium (137-145) mmol/L Potassium (3.5-5.1) mmol/L Chloride (98-107) mmol/L Carbon Dioxide (22-30) mmol/L Anion Gap mmol/L BUN (7-17) mg/dL Creatinine (0.52-1.04) mg/dL Est GFR (CKD-EPI)AfAm (>60 ml/min/1.73 sqM) Est GFR (CKD-EPI)NonAf (>60 ml/min/1.73 sqM) Glucose (74-99) mg/dL Plasma Lactic Acid Cristiano (0.7-2.0) mmol/L Uric Acid 4.2 (3.7-7.4) mg/dL Calcium (8.4-10.2) mg/dL Total Bilirubin (0.2-1.3) mg/dL AST (14-36) U/L ALT (4-34) U/L Alkaline Phosphatase (38-126) U/L C-Reactive Protein (<10.0) mg/L Total Protein (6.3-8.2) g/dL Albumin (3.5-5.0) g/dL Urine Color Light Yellow Urine Appearance Clear (Clear) Urine pH 5.5 (5.0-8.0) Ur Specific [place] 1.008 (1.001-1.035) Urine Protein Trace H (Negative) Urine Glucose (UA) Negative (Negative) Urine Ketones Negative (Negative) Urine Blood Small H (Negative) Urine Nitrite Negative (Negative) Urine Bilirubin Negative (Negative) Urine Urobilinogen <2.0 (<2.0) mg/dL Ur Leukocyte Esterase Negative (Negative) Urine RBC 3 (0-5) /hpf Urine WBC <1 (0-5) /hpf Ur Squamous Epith Cells <1 (0-4) /hpf Urine Bacteria Rare H (None) /hpf Disposition Clinical Impression: Extensor tendinitis of hand Disposition: HOME SELF-CARE Condition: Good Instructions (If sedation given, give patient instructions): Tendinitis (ED) Prescriptions: predniSONE [Deltasone] 20 mg PO DAILY #5 tab Omeprazole 20 mg PO DAILY #5 capsule.dr Is patient prescribed a controlled substance at d/c from ED?: No Referrals: Meseret Haq MD [Primary Care Provider] - 1-2 days Time of Disposition: 11:44
[2019-08-10] MEDS ORDERED: MORPHINE SULFATE 2 MG/ML SYRINGE IVP STA (09:22)
[2019-08-10 09:34] LABS: Basophils # (A) 0.1 k/uL (0-0.2); Basophils % (A) 1 %; Eosinophils # (A) 0.1 k/uL (0-0.7); Eosinophils % (A) 1 %; HCT 33.7 % (34.0-46.0); HGB 10.6 gm/dL (11.4-16.0); Hypochromasia Slight; Lymphocytes # (A) 0.6 k/uL (1.0-4.8); Lymphocytes % (A) 6 %; MCH 30.8 pg (25.0-35.0); MCHC 31.4 g/dL (31.0-37.0); Mean Platelet Volume 7.2; Monocytes # (A) 0.5 k/uL (0-1.0); Monocytes % (A) 5 %; Neutrophils # (A) 8.2 k/uL (1.3-7.7); Neutrophils % (A) 86 %; Platelet Count 326 k/uL (150-450); RBC 3.44 m/uL (3.80-5.40); RDW 14.9 % (11.5-15.5); WBC 9.5 k/uL (3.8-10.6)
[2019-08-10 09:46] LABS: Albumin 4.1 g/dL (3.5-5.0); C Reactive Protein 75.4 mg/L (<10.0); Calcium 8.6 mg/dL (8.4-10.2); Potassium 4.4 mmol/L (3.5-5.1); Total Bilirubin 0.8 mg/dL (0.2-1.3); Total Protein 6.9 g/dL (6.3-8.2)
[2019-08-10 10:30] LABS: Appearance,Urine Clear (Clear); Bacteria,Urine Rare /hpf; Bilirubin,Urine Negative (Negative); Blood,Urine Small (Negative); Color,Urine Light Yellow; Glucose,Urine (UA) Negative (Negative); Ketones,Urine Negative (Negative); Leukocyte Esterase,Urine Negative (Negative); Nitrite,Urine Negative (Negative); PH, Urine 5.5 (5.0-8.0); Protein,Urine Trace (Negative); RBC,Urine 3 /hpf (0-5); Specific Gravity,Urine 1.008 (1.001-1.035); Squamous Epithelial Cell,Urine <1 /hpf (0-4); Urobilinogen,Urine <2.0 mg/dL (<2.0); WBC,Urine <1 /hpf (0-5)
[2019-08-10 10:49] LABS: Erythrocyte Sedimentation Rate 41 mm/hr (0-20)
--- NOTE | 2019-08-10 11:37 | XR ---
EXAMINATION TYPE: XR wrist complete RT , 4 VIEWS DATE OF EXAM ORDERED: 08/10/2019 HISTORY: Wrist pain . COMPARISON: None. FINDINGS: No fracture, dislocation or other acute osseous lesion is seen. IMPRESSION: NO ACUTE OSSEOUS LESION.
[2019-08-10 12:12] VITALS: BP 129/64; PULSE 75; RESP 18; TEMP 98
== END 2019-08-10 12:12 | disposition home or self-care (01) ==
LOC: EC 08:38
DX: M77.9 Enthesopathy, unspecified (principal); M79.672 Pain in left foot; F31.9 Bipolar disorder, unspecified; G35 Multiple sclerosis; M32.9 Systemic lupus erythematosus, unspecified; M79.7 Fibromyalgia; F17.200 Nicotine dependence, unspecified, uncomplicated; Z79.899 Other long term (current) drug therapy; Z88.0 Allergy status to penicillin; Z88.1 Allergy status to other antibiotic agents; Z88.2 Allergy status to sulfonamides; Z88.5 Allergy status to narcotic agent; Z88.6 Allergy status to analgesic agent; Z91.013 Allergy to seafood; Z91.048 Other nonmedicinal substance allergy status; Z88.8 Allergy status to other drugs, medicaments and biological substances; Z85.028 Personal history of other malignant neoplasm of stomach; Z86.73 Personal history of transient ischemic attack (TIA), and cerebral infarction without residual deficits; Z90.89 Acquired absence of other organs; Z98.890 Other specified postprocedural states
CPT/HCPCS: 36415; 93005; 80053; 85652; 83605; 84550; 85025; 86140; 81001; 87040; 73110; 99285; 96374; J2270

== ENCOUNTER 2019-08-11 11:39 | Emergency (ER) | payer MEDICARE, OTHER ==
[2019-08-11 11:46] VITALS: TEMP 100
[2019-08-11] MEDS ORDERED: methylPREDNISolone SOD SUCCI 125 MG/2 ML VIAL IV STA (12:45)
[2019-08-11] MEDS ORDERED: PANTOPRAZOLE 40 MG/10 ML VIAL IVP STA (12:45)
[2019-08-11] MEDS ORDERED: VANCOMYCIN IV PER PHARMACY 1 EACH MISC MISCELLANE PRN (12:46)
[2019-08-11] MEDS ORDERED: VANCOMYCIN 1,000 MG in SODIUM CHLORIDE 0.9% 250 ML IVPB ONE (13:00)
[2019-08-11] MEDS ORDERED: MORPHINE SULFATE 4 MG/ML SYRINGE IVP STA ×2 (13:13→17:36)
[2019-08-11] MEDS ORDERED: ONDANSETRON 4 MG/2 ML VIAL IVP STA (13:13)
--- NOTE | 2019-08-11 13:52 | ED ---
Upper Extremity HPI - General Chief Complaint: Extremity Injury, Upper Stated Complaint: swollen hands, arm neck pain Time Seen by Provider: 08/11/19 11:58 Source: patient Mode of arrival: ambulatory Limitations: no limitations - History of Present Illness Initial Comments: 63-year-old female presents emergency Department with chief complaint of bilater al hand swelling, pain, left foot swelling and pain. Patient has been seen multiple times for this complaint most recently yesterday and symptoms have greatly worsened overnight time. Patient denies any known fever but temperature has been around 100 the last couple days. Denies any cough or URI symptoms. Patient states that she was treated for cellulitis Fish antibiotics did not change her symptoms symptoms worsen. Patient states she is at the point where she cannot use her hands because of pain and swelling. Patient denies any chest pain or shortness breath. 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 - Related Data Home Medications Medication Instructions Recorded Confirmed Gabapentin [Neurontin] 300 mg PO TID 04/14/15 07/24/19 DULoxetine HCL [Cymbalta] 60 mg PO DAILY 05/24/17 07/24/19 Ergocalciferol [Vitamin D2 50,000 unit PO MO 05/24/17 07/24/19 (DRISDOL)] Folic Acid 1 mg PO DAILY 05/24/17 07/24/19 Magnesium Oxide [Mag-Ox] 400 mg PO BID 05/24/17 07/24/19 traZODone HCL 150 mg PO HS 02/27/18 07/24/19 ALPRAZolam [Xanax] 1 mg PO HS 07/10/18 07/24/19 Dicyclomine [Bentyl] 20 mg PO BID 07/10/18 07/24/19 Loteprednol Etabonate [Lotemax] 1 drop BOTH EYES BID 07/10/18 07/24/19 Olopatadine HCl [Pataday] 1 drop BOTH EYES BID 07/10/18 07/24/19 Sodium Bicarbonate 325 mg PO BID 07/10/18 07/24/19 Loperamide HCl [Imodium A-D] 2 mg PO TID 11/05/18 07/24/19 Potassium Chloride ER [K-Dur 20] 20 meq PO Q48H 11/05/18 07/24/19 Previous Rx's Medication Instructions Recorded Famotidine [Pepcid] 20 mg PO DAILY #30 tab 11/08/18 predniSONE 10 mg PO DAILY #15 tab 05/08/19 Cephalexin [Keflex] 500 mg PO Q6HR 7 Days #28 cap 07/29/19 Omeprazole 20 mg PO DAILY #5 capsule. 08/10/19 predniSONE [Deltasone] 20 mg PO DAILY #5 tab 08/10/19 Allergies Allergy/AdvReac Type Severity Reaction Status Date / Time alcohol Allergy Unknown Verified 08/11/19 11:43 aspirin Allergy Unknown Verified 08/11/19 11:43 divalproex sodium Allergy Unknown Verified 08/11/19 11:43 [From Depakote] erythromycin base Allergy Unknown Verified 08/11/19 11:43 ketorolac [From Toradol] Allergy Unknown Verified 08/11/19 11:43 Penicillins Allergy Unknown Verified 08/11/19 11:43 shellfish derived [Shellfish] Allergy Unknown Verified 08/11/19 11:43 strawberry Allergy Unknown Verified 08/11/19 11:43 Sulfa (Sulfonamide Allergy Unknown Verified 08/11/19 11:43 Antibiotics) Review of Systems ROS Statement: Those systems with pertinent positive or pertinent negative responses have been documented in the HPI. ROS Other: All systems not noted in ROS Statement are negative. Past Medical History Past Medical History: Cancer, CVA/TIA, Fibromyalgia Additional Past Medical History / Comment(s): Lupus, TIA, right hand tendons severed, closed head injury, multiple sclerosis History of Any Multi-Drug Resistant Organisms: C-DIFF Date of last positivie culture/infection: 2014 Past Surgical History: Appendectomy, Back Surgery, Section, Orthopedic Surgery Additional Past Surgical History / Comment(s): stomach cancer Past Anesthesia/Blood Transfusion Reactions: No Reported Reaction Past Psychological History: Anxiety, Bipolar, Depression, PTSD Smoking Status: Current every day smoker Past Alcohol Use History: None Reported Past Drug Use History: None Reported - Past Family History Father Additional Family Medical History / Comment(s): Father is alive with history of diabetes and stomach problems. Mother Additional Family Medical History / Comment(s): Mother has history of diabetes, coronary artery disease and COPD. Sister(s) Additional Family Medical History / Comment(s): Patient has sisters all have female problems. She does state there is breast cancer history in her aunt. Son(s) Additional Family Medical History / Comment(s): Patient has one son with no major medical problems. General Exam Limitations: no limitations General appearance: alert, in no apparent distress Head exam: Present: atraumatic, normocephalic, normal inspection Eye exam: Present: normal appearance, PERRL, EOMI. Absent: scleral icterus, conjunctival injection, periorbital swelling ENT exam: Present: mucous membranes moist Neck exam: Present: normal inspection, full ROM. Absent: tenderness, meningismus, lymphadenopathy Respiratory exam: Present: normal lung sounds bilaterally. Absent: respiratory distress, wheezes, rales, rhonchi, stridor Cardiovascular Exam: Present: normal rhythm, tachycardia, normal heart sounds. Absent: systolic murmur, diastolic murmur, rubs, gallop, clicks Extremities exam: Present: other (Bilateral hand swelling, mild erythema increased warmth and severe times with palpation Refill less than 2 seconds limited range of motion secondary pain, left foot there is a small area on the dorsal aspect proximal to digits 2-3 and 4 that is erythematous non-blanchable palpable pulses equal bilaterally lower extremities there are some noted swelling the left foot and ankle on the left) Neurological exam: Present: alert, oriented X3, CN II-XII intact, reflexes normal. Absent: motor sensory deficit Skin exam: Present: warm, dry Course Vital Signs 08/11/19 08/11/19 11:44 14:00 Temperature 100.0 F H Pulse Rate 101 H 65 Respiratory 18 18 Rate Blood Pressure 161/85 152/78 O2 Sat by Pulse 100 99 Oximetry Medical Decision Making - Medical Decision Making 63-year-old female presents emergency Department with chief complaint of joint swelling, pain. Patient's ear. He has slightly increased from 75-238 today. Her pain is increased along with swelling of her joints. Patient's white count is stable, patient has had a low-grade temp of 100. Case discussed with on-call primary Dr. markham recommends patient to be transferred to [facility]. Patient was given IV Solu-Medrol, Rocephin, vancomycin. There is concerned that this may be infectious versus inflammatory. Additional labs were sent for outpatient testing. [facility] for higher level care, rheumatology and infectious disease consult - Lab Data Result diagrams: 08/11/19 13:30 08/11/19 13:30 Lab Results 08/11/19 08/11/19 Range/Units 13:30 13:30 WBC 9.6 (3.8-10.6) k/uL RBC 3.28 L (3.80-5.40) m/uL Hgb 10.0 L (11.4-16.0) gm/dL Hct 32.1 L (34.0-46.0) % MCV 98.0 (80.0-100.0) fL MCH 30.6 (25.0-35.0) pg MCHC 31.2 (31.0-37.0) g/dL RDW 15.1 (11.5-15.5) % Plt Count 316 (150-450) k/uL Neutrophils % 84 % Lymphocytes % 8 % Monocytes % 5 % Eosinophils % 1 % Basophils % 1 % Neutrophils # 8.1 H (1.3-7.7) k/uL Lymphocytes # 0.7 L (1.0-4.8) k/uL Monocytes # 0.5 (0-1.0) k/uL Eosinophils # 0.1 (0-0.7) k/uL Basophils # 0.1 (0-0.2) k/uL Hypochromasia Slight ESR 41 H (0-20) mm/hr Sodium 137 (137-145) mmol/L Potassium 4.1 (3.5-5.1) mmol/L Chloride 108 H (98-107) mmol/L Carbon Dioxide 16 L (22-30) mmol/L Anion Gap 13 mmol/L BUN 19 H (7-17) mg/dL Creatinine 1.13 H (0.52-1.04) mg/dL Est GFR (CKD-EPI)AfAm 59 (>60 ml/min/1.73 sqM) Est GFR (CKD-EPI)NonAf 51 (>60 ml/min/1.73 sqM) Glucose 113 H (74-99) mg/dL Uric Acid 4.2 (3.7-7.4) mg/dL Calcium 7.9 L (8.4-10.2) mg/dL Total Bilirubin 0.8 (0.2-1.3) mg/dL AST 23 (14-36) U/L ALT 14 (4-34) U/L Alkaline Phosphatase 129 H (38-126) U/L C-Reactive Protein 238.2 H (<10.0) mg/L Total Protein 6.8 (6.3-8.2) g/dL Albumin 3.9 (3.5-5.0) g/dL Disposition Clinical Impression: Polyarthritis, Unable to ambulate, Painful swelling of joint Narrative: Severe debilitating polyarthralgia Disposition: OTHER INSTITUTION NOT DEFINED Referrals: Meseret Haq MD [Primary Care Provider] - 1-2 days Time of Disposition: 16:11 - Out of Hospital Transfer - Req. Specs Out of Hospital Transfer - Requested Specifics: Other Emergency Center ([facility])
[2019-08-11 14:17] LABS: Albumin 3.9 g/dL (3.5-5.0); Calcium 7.9 mg/dL (8.4-10.2); Potassium 4.1 mmol/L (3.5-5.1); Total Bilirubin 0.8 mg/dL (0.2-1.3); Total Protein 6.8 g/dL (6.3-8.2); Uric Acid 4.2 mg/dL (3.7-7.4)
[2019-08-11 14:29] LABS: C Reactive Protein 238.2 mg/L (<10.0)
[2019-08-11 15:19] LABS: Erythrocyte Sedimentation Rate 41 mm/hr (0-20)
[2019-08-11 15:21] LABS: Basophils # (A) 0.1 k/uL (0-0.2); Basophils % (A) 1 %; Eosinophils # (A) 0.1 k/uL (0-0.7); Eosinophils % (A) 1 %; HCT 32.1 % (34.0-46.0); Hypochromasia Slight; Lymphocytes # (A) 0.7 k/uL (1.0-4.8); Lymphocytes % (A) 8 %; MCH 30.6 pg (25.0-35.0); MCHC 31.2 g/dL (31.0-37.0); Mean Platelet Volume 7.6; Monocytes # (A) 0.5 k/uL (0-1.0); Monocytes % (A) 5 %; Neutrophils # (A) 8.1 k/uL (1.3-7.7); Neutrophils % (A) 84 %; Platelet Count 316 k/uL (150-450); RBC 3.28 m/uL (3.80-5.40); RDW 15.1 % (11.5-15.5); WBC 9.6 k/uL (3.8-10.6)
[2019-08-11 17:45] VITALS: BP 159/80; PULSE 62
[2019-08-11 17:46] VITALS: RESP 20
[2019-08-12] MEDS ORDERED: VANCOMYCIN 1,000 MG in SODIUM CHLORIDE 0.9% 250 ML IVPB SCH (07:00)
[2019-08-12 13:29] LABS: HIV 1 AB Non-Reactive (Non-Reactive); HIV 2 AB Non-Reactive (Non-Reactive); HIV AB P24 Non-Reactive (Non-Reactive); HIV P24 AG Non-Reactive (Non-Reactive)
[2019-08-12 15:27] LABS: C. trachomatis,PCR Negative (Neg,Equiv); Chlamydia trachomatis Source Urine; N. gonorrhoeae,PCR Negative (Neg,Equiv); Neisseria Source Urine
== END 2019-08-11 18:20 | disposition other institution (70) ==
LOC: EC 11:39
DX: M13.0 Polyarthritis, unspecified (principal); R50.9 Fever, unspecified; M79.7 Fibromyalgia; G35 Multiple sclerosis; M32.9 Systemic lupus erythematosus, unspecified; F41.9 Anxiety disorder, unspecified; F31.9 Bipolar disorder, unspecified; F17.200 Nicotine dependence, unspecified, uncomplicated; Z79.899 Other long term (current) drug therapy; Z88.0 Allergy status to penicillin; Z88.1 Allergy status to other antibiotic agents; Z88.2 Allergy status to sulfonamides; Z91.013 Allergy to seafood; Z88.6 Allergy status to analgesic agent; Z91.018 Allergy to other foods; Z88.8 Allergy status to other drugs, medicaments and biological substances; Z91.048 Other nonmedicinal substance allergy status; Z85.028 Personal history of other malignant neoplasm of stomach; Z98.890 Other specified postprocedural states; Z86.73 Personal history of transient ischemic attack (TIA), and cerebral infarction without residual deficits
CPT/HCPCS: 36415; 80053; 85652; 84550; 85025; 86140; 87040; 86618; 87491; 87591; 86780; 86038; 87390; 99284; 96365; 96367; 96366 ×2; 96375 ×4; 96376; J3370; J2270; J2930; J2405; J0696; C9113

== ENCOUNTER → 2019-08-22 | Outpatient (CLI) | payer MEDICARE, OTHER ==
[2019-08-22 15:16] LABS: Appearance,Urine Clear (Clear); Bilirubin,Urine Negative (Negative); Blood,Urine Small (Negative); Color,Urine Yellow; Glucose,Urine (UA) Negative (Negative); Ketones,Urine Negative (Negative); Leukocyte Esterase,Urine Negative (Negative); Mucus,Urine Rare /hpf; Nitrite,Urine Negative (Negative); PH, Urine 5.5 (5.0-8.0); Protein,Urine Trace (Negative); RBC,Urine 7 /hpf (0-5); Squamous Epithelial Cell,Urine 2 /hpf (0-4); Urobilinogen,Urine <2.0 mg/dL (<2.0); WBC,Urine 1 /hpf (0-5)
[2019-08-22 19:08] LABS: Protein, Total 5.8 g/dL (6.2-8.2)
[2019-08-22 19:54] LABS: Hepatitis B Surface Antigen Non-Reactive (Non-Reactive); Hepatitis C IgG Antibody Non-Reactive (Non-Reactive)
[2019-08-22 20:29] LABS: Anti-Smith Ab Interp NEGATIVE (NEGATIVE); Cardiolipin Ab IgG Interp NEGATIVE (NEGATIVE); Cardiolipin Ab IgM Interp NEGATIVE (NEGATIVE); Cardiolipin IgA Antibody 4.3 U/mL; Cardiolipin IgM Antibody 2.5 U/mL; Cyclic Citrull Pep IgG Unit <0.5 U/mL; Cyclic Citrullinated Pep IgG NEGATIVE (NEGATIVE); DNA Double-Stranded NEGATIVE (NEGATIVE); Scleroderma SC-70 Ab <0.2 AI
[2019-08-22 20:34] LABS: Albumin 4.2 g/dL (3.80-4.90); Albumin/Globulin Ratio 2.21 (1.60-3.17); BUN/Creat Ratio 9.09 Ratio (12.00-20.00); C Reactive Protein 4.2 mg/dL (0.0-0.8); Calcium 7.9 mg/dL (8.7-10.3); Globulin 1.9 g/dL (1.6-3.3); Non-African American GFR(CKD) 52.6 (60.0-200.0); Potassium 4.1 mmol/L (3.5-5.5); Total Bilirubin 0.3 mg/dL (0.3-1.2); Total Protein 6.1 g/dL (6.2-8.2); Uric Acid 5.1 mg/dL (2.9-7.7)
[2019-08-23 08:19] LABS: Angiotensin-1 Converting Enz. 28 U/L (8-52)
[2019-08-23 08:32] LABS: Free Kappa Lt Chain Qnt, Serum 2.14 mg/dL (0.33-1.94)
[2019-08-23 11:47] LABS: Albumin 3.14 g/dL (3.80-4.90); Gamma Globulin 0.51 g/dL (0.70-1.50)
[2019-08-23 12:33] LABS: HLA B27 NEGATIVE
[2019-08-23 13:24] LABS: C-ANCA <1:20 Titer (<1:20)
[2019-08-23 13:28] LABS: Histone Antibody 0.3 UNITS (<1.0)
[2019-08-23 14:07] LABS: APTT 47 Sec(s) (<43); APTT 1:1 Mix 44 Sec(s) (<43); DRVVT 1:1 Mix 42 Sec(s) (<44); Dilute Russell Viper Venom 48 Sec(s) (<44); Hexagonal Phase Neutralization Positive (Negative)
[2019-08-24 11:04] LABS: Aldolase 2.4 U/L (1.2-7.6)
== END | disposition home or self-care (01) ==
LOC: LABWHC1 14:17
PROVIDERS: ATTEND Internal Medicine Rheumatology
DX: M13.80 Other specified arthritis, unspecified site (principal)
CPT/HCPCS: 36415; 80053; 81001; 82085; 82164; 82550; 83516; 83883; 84165; 84550; 85613; 85652; 85730; 86038; 86140; 86147; 86160; 86162; 86200; 86225; 86235; 86255; 86334; 86431; 86803; 86812; 87340

== ENCOUNTER → 2019-08-30 | Outpatient (CLI) | payer MEDICARE, OTHER ==
[2019-08-30 17:34] LABS: African American GFR (CKD) 45.6 (60.0-200.0); Albumin 3.8 g/dL (3.80-4.90); Albumin/Globulin Ratio 2.24 (1.60-3.17); Anion Gap 7.7 mmol/L (4.00-12.00); BUN/Creat Ratio 6.43 Ratio (12.00-20.00); Calcium 8.5 mg/dL (8.7-10.3); Carbon Dioxide 24.3 mmol/L (21.6-31.8); Globulin 1.7 g/dL (1.6-3.3); Non-African American GFR(CKD) 39.3 (60.0-200.0); Potassium 4.6 mmol/L (3.5-5.5); Total Bilirubin 0.2 mg/dL (0.2-1.2); Total Protein 5.5 g/dL (6.2-8.2)
[2019-08-31 12:12] LABS: IgG Subclass 2 81.5 mg/dL (169.0-640.0); IgG Subclass 3 19.2 mg/dL (11.0-85.0); IgG Subclass 4 13.2 mg/dL (3.0-175.0)
== END | disposition home or self-care (01) ==
LOC: LABWHC1 10:55
PROVIDERS: ATTEND Internal Medicine Gastroenterology
DX: K86.1 Other chronic pancreatitis (principal); K86.89 Other specified diseases of pancreas
CPT/HCPCS: 36415; 80053; 82787; 83516; 83970

== ENCOUNTER 2019-10-14 12:34 | Emergency (ER) | payer MEDICARE, OTHER ==
[2019-10-14 12:45] VITALS: RESP 18
--- NOTE | 2019-10-14 13:14 | ED ---
General Adult HPI - General Chief complaint: Extremity Injury, Lower Stated complaint: fall, arm pain Time Seen by Provider: 10/14/19 12:50 Source: patient Mode of arrival: wheelchair Limitations: no limitations - History of Present Illness Initial comments: Patient is a 64-year-old female presenting to the emergency Department with complaints of right shoulder pain since falling yesterday. Patient states she initially fell out of her wheelchair approximately one month ago and hit the right shoulder. Patient states ever since then her right shoulder has been sore. Patient states then yesterday she missed a step down and fell forward again hitting her right shoulder. Patient also landed on her right elbow. She states her pain is significantly worse. She states she did call [facility], but said they cannot see her without her going to the ER first. She denies hitting her head. She is not on blood thinners. She denies lightheadedness, chest pain, shortness of breath, fever, chills, abdominal pain. She denies any other pain from this fall. She has no other complaints at this time. Upon arrival to the ER, her vital signs are stable. - Related Data Home Medications Medication Instructions Recorded Confirmed Gabapentin [Neurontin] 300 mg PO TID 04/14/15 07/24/19 DULoxetine HCL [Cymbalta] 60 mg PO DAILY 05/24/17 07/24/19 Ergocalciferol [Vitamin D2 50,000 unit PO MO 05/24/17 07/24/19 (DRISDOL)] Folic Acid 1 mg PO DAILY 05/24/17 07/24/19 Magnesium Oxide [Mag-Ox] 400 mg PO BID 05/24/17 07/24/19 traZODone HCL 150 mg PO HS 02/27/18 07/24/19 ALPRAZolam [Xanax] 1 mg PO HS 07/10/18 07/24/19 Dicyclomine [Bentyl] 20 mg PO BID 07/10/18 07/24/19 Loteprednol Etabonate [Lotemax] 1 drop BOTH EYES BID 07/10/18 07/24/19 Olopatadine HCl [Pataday] 1 drop BOTH EYES BID 07/10/18 07/24/19 Sodium Bicarbonate 325 mg PO BID 07/10/18 07/24/19 Loperamide HCl [Imodium A-D] 2 mg PO TID 11/05/18 07/24/19 Potassium Chloride ER [K-Dur 20] 20 meq PO Q48H 11/05/18 07/24/19 Previous Rx's Medication Instructions Recorded Famotidine [Pepcid] 20 mg PO DAILY #30 tab 11/08/18 predniSONE 10 mg PO DAILY #15 tab 05/08/19 Cephalexin [Keflex] 500 mg PO Q6HR 7 Days #28 cap 07/29/19 Omeprazole 20 mg PO DAILY #5 capsule. 08/10/19 predniSONE [Deltasone] 20 mg PO DAILY #5 tab 08/10/19 Allergies Allergy/AdvReac Type Severity Reaction Status Date / Time alcohol Allergy Unknown Verified 10/14/19 12:45 aspirin Allergy Unknown Verified 10/14/19 12:45 divalproex sodium Allergy Unknown Verified 10/14/19 12:45 [From Depakote] erythromycin base Allergy Unknown Verified 10/14/19 12:45 ketorolac [From Toradol] Allergy Unknown Verified 10/14/19 12:45 Penicillins Allergy Unknown Verified 10/14/19 12:45 shellfish derived [Shellfish] Allergy Unknown Verified 10/14/19 12:45 strawberry Allergy Unknown Verified 10/14/19 12:45 Sulfa (Sulfonamide Allergy Unknown Verified 10/14/19 12:45 Antibiotics) Review of Systems ROS Statement: Those systems with pertinent positive or pertinent negative responses have been documented in the HPI. ROS Other: All systems not noted in ROS Statement are negative. Past Medical History Past Medical History: Cancer, CVA/TIA, Fibromyalgia Additional Past Medical History / Comment(s): Lupus, TIA, right hand tendons severed, closed head injury, multiple sclerosis History of Any Multi-Drug Resistant Organisms: C-DIFF Date of last positivie culture/infection: 2014 Past Surgical History: Appendectomy, Back Surgery, Section, Orthopedic Surgery Additional Past Surgical History / Comment(s): stomach cancer Past Anesthesia/Blood Transfusion Reactions: No Reported Reaction Past Psychological History: Anxiety, Bipolar, Depression, PTSD Smoking Status: Current every day smoker Past Alcohol Use History: None Reported Past Drug Use History: None Reported - Past Family History Father Additional Family Medical History / Comment(s): Father is alive with history of diabetes and stomach problems. Mother Additional Family Medical History / Comment(s): Mother has history of diabetes, coronary artery disease and COPD. Sister(s) Additional Family Medical History / Comment(s): Patient has sisters all have female problems. She does state there is breast cancer history in her aunt. Son(s) Additional Family Medical History / Comment(s): Patient has one son with no major medical problems. General Exam - General Exam Comments Initial Comments: GENERAL: Well-appearing, well-nourished and in no acute distress. HEAD: Atraumatic, normocephalic. EYES: Pupils equal round and reactive to light, extraocular movements intact, sclera anicteric, conjunctiva are normal. ENT: TMs normal, nares patent, oropharynx clear without exudates. Moist mucous membranes. NECK: Normal range of motion, supple without lymphadenopathy or JVD. LUNGS: Breath sounds clear to auscultation bilaterally and equal. No wheezes rales or rhonchi. HEART: Regular rate and rhythm without murmurs, rubs or gallops. ABDOMEN: Soft, nontender, normoactive bowel sounds. No guarding, no rebound. No masses appreciated. : Deferred EXTREMITIES: Pain with palpation of the right anterior and posterior shoulder. She has pain and decreased range of motion with shoulder flexion and abduction. Strength is 4 out of 5 in the right upper extremity, secondary to pain. Patient has some mild bruising to the right elbow, just distal to the lateral epicondyle. Pa tient is neurovascular intact. NEUROLOGICAL: Cranial nerves II through XII grossly intact. Normal speech. PSYCH: Normal mood, normal affect. SKIN: Warm, Dry, normal turgor, no rashes or lesions noted. Limitations: no limitations Course Vital Signs 10/14/19 10/14/19 12:39 14:27 Temperature 98.7 F 98.2 F Pulse Rate 82 72 Respiratory 18 18 Rate Blood Pressure 164/83 150/81 O2 Sat by Pulse 98 98 Oximetry Medical Decision Making - Medical Decision Making Patient is a 4-year-old female here for right shoulder and right elbow pain after falling down one step yesterday. Patient had a previous fall 1 month ago that also landed on her right shoulder. No previous surgeries or fractures of the right shoulder. X-rays today revealed no acute fractures/dislocations the right shoulder or right elbow. I discussed with patient that she might have muscle or ligament damage to her right shoulder. He will be given referral to an orthopedic. She is stable for discharge at this time. She will do Tylenol and heat packs to the shoulder. Patient is in agreement with this plan of care. Case discussed with Dr. Quinteros. Disposition Clinical Impression: Right shoulder pain, Sprain of right shoulder, Contusion of right elbow Disposition: HOME SELF-CARE Condition: Stable Instructions (If sedation given, give patient instructions): Shoulder Sprain (ED) Additional Instructions: Please return to the Emergency Department if symptoms worsen or any other concerns. May use heat to the area and gentle range of motion. Follow up with orthopedics as discussed. Is patient prescribed a controlled substance at d/c from ED?: No Referrals: Meseret Haq MD [Primary Care Provider] - 1-2 days Jose Daniel Andersen DO [Doctor of Osteopathic Medicine] - 1-2 days
--- NOTE | 2019-10-14 13:50 | XR ---
EXAMINATION TYPE: XR shoulder complete RT DATE OF EXAM: 10/14/2019 COMPARISON: NONE HISTORY: Fall, pain TECHNIQUE: Shoulder examined in 3 views FINDINGS: The humeral head articulates with the glenoid. The acromio-clavicular junction is normal. No acute fractures or dislocations are evident. A follow up study can be performed 7-10 days from acute trauma for continued pain. IMPRESSION: 1. Normal three-view right Shoulder
--- NOTE | 2019-10-14 13:51 | XR ---
EXAMINATION TYPE: XR elbow complete RT DATE OF EXAM: 10/14/2019 COMPARISON: None HISTORY: Fall, pain, numbness in fingers TECHNIQUE: Three-view right elbow FINDINGS: Radius aligns normally with the humerus. Anterior fat pad is within normal limits. No eleva tion of posterior fat pad is evident. Olecranon appears normal. Soft tissues are normal. IMPRESSION: 1. No acute osseous abnormality. 2. Follow-up exams can be performed 7-10 days from acute trauma for continued pain.
[2019-10-14 14:28] VITALS: BP 150/81; PULSE 72; TEMP 98.2
== END 2019-10-14 14:28 | disposition home or self-care (01) ==
LOC: EC 12:34
DX: S50.01XA Contusion of right elbow, initial encounter (principal); S43.401A Unspecified sprain of right shoulder joint, initial encounter; M79.7 Fibromyalgia; G35 Multiple sclerosis; F41.9 Anxiety disorder, unspecified; F31.9 Bipolar disorder, unspecified; F43.10 Post-traumatic stress disorder, unspecified; F17.200 Nicotine dependence, unspecified, uncomplicated; Z79.899 Other long term (current) drug therapy; Z88.2 Allergy status to sulfonamides; Z88.0 Allergy status to penicillin; Z91.018 Allergy to other foods; Z91.013 Allergy to seafood; Z88.6 Allergy status to analgesic agent; Z88.1 Allergy status to other antibiotic agents; Z88.8 Allergy status to other drugs, medicaments and biological substances; Z91.048 Other nonmedicinal substance allergy status; Z86.73 Personal history of transient ischemic attack (TIA), and cerebral infarction without residual deficits; Z98.890 Other specified postprocedural states; Z85.09 Personal history of malignant neoplasm of other digestive organs; W10.9XXA Fall (on) (from) unspecified stairs and steps, initial encounter
CPT/HCPCS: 99283

== ENCOUNTER 2019-10-20 16:26 | Inpatient (IN) | payer MEDICARE, OTHER ==
[2019-10-20] MEDS ORDERED: SODIUM CHLORIDE 0.9% 1,000 ML IV STA (16:50)
[2019-10-20 17:01] LABS: Glucose,Whole Blood 127 mg/dL (75-99)
--- NOTE | 2019-10-20 17:04 | ED ---
General Adult HPI - General Chief complaint: Altered Mental Status Stated complaint: AMS Time Seen by Provider: 10/20/19 16:31 Source: patient, EMS, RN notes reviewed Mode of arrival: EMS Limitations: altered mental status - History of Present Illness Initial comments: Patient is a pleasant 64-year-old female presenting to the emergency department by EMS with concerns for change in mental status. Patient admits to feeling somewhat drowsy. Patient has reportedly several times that are missing. Patient denies taking any extra. Patient told EMS that she lost some on the bus. Patient states at this time that her [id number] might have taken them. Patient denies taking any extra medications. Patient denies any fever. Patient denies any weakness. Patient does have some discomfort of her left leg that she states she bumped a few weeks ago. - Related Data Home Medications Medication Instructions Recorded Confirmed Gabapentin [Neurontin] 300 mg PO TID 04/14/15 10/20/19 DULoxetine HCL [Cymbalta] 60 mg PO DAILY 05/24/17 10/20/19 Ergocalciferol [Vitamin D2 50,000 unit PO MO 05/24/17 10/20/19 (DRISDOL)] Folic Acid 1 mg PO DAILY 05/24/17 10/20/19 Magnesium Oxide [Mag-Ox] 400 mg PO BID 05/24/17 10/20/19 traZODone HCL 150 mg PO HS 02/27/18 10/20/19 Dicyclomine [Bentyl] 20 mg PO BID 07/10/18 10/20/19 Potassium Chloride ER [K-Dur 20] 20 meq PO DIRECTED 11/05/18 07/24/19 ALPRAZolam [Xanax] 0.5 mg PO BID 10/20/19 10/20/19 Albuterol Sulfate [Proair Hfa] 2 puff INHALATION RT-Q4H PRN 10/20/19 10/20/19 Sodium Bicarbonate Tab 650 mg PO BID 10/20/19 10/20/19 tiZANidine [Zanaflex] 2 mg PO HS PRN 10/20/19 10/20/19 traMADol HCL 50 mg PO Q6H PRN 10/20/19 10/20/19 Previous Rx's Medication Instructions Recorded Famotidine [Pepcid] 20 mg PO DAILY #30 tab 11/08/18 Allergies Allergy/AdvReac Type Severity Reaction Status Date / Time alcohol Allergy Unknown Verified 10/20/19 18:40 aspirin Allergy Unknown Verified 10/20/19 18:40 divalproex sodium Allergy Unknown Verified 10/20/19 18:40 [From Depakote] erythromycin base Allergy Unknown Verified 10/20/19 18:40 ketorolac [From Toradol] Allergy Unknown Verified 10/20/19 18:40 Penicillins Allergy Unknown Verified 10/20/19 18:40 shellfish derived [Shellfish] Allergy Unknown Verified 10/20/19 18:40 strawberry Allergy Unknown Verified 10/20/19 18:40 Sulfa (Sulfonamide Allergy Unknown Verified 10/20/19 18:40 Antibiotics) Review of Systems ROS Statement: Those systems with pertinent positive or pertinent negative responses have been documented in the HPI. ROS Other: All systems not noted in ROS Statement are negative. Constitutional: Denies: fever Eyes: Denies: eye pain ENT: Denies: ear pain Respiratory: Denies: cough, dyspnea Cardiovascular: Denies: chest pain Endocrine: Reports: fatigue Gastrointestinal: Denies: abdominal pain, vomiting Genitourinary: Denies: dysuria Musculoskeletal: Denies: back pain Skin: Denies: rash Neurological: Denies: weakness Past Medical History Past Medical History: Cancer, CVA/TIA, Fibromyalgia Additional Past Medical History / Comment(s): Lupus, TIA, right hand tendons s evered, closed head injury, multiple sclerosis History of Any Multi-Drug Resistant Organisms: C-DIFF Date of last positivie culture/infection: 2014 Past Surgical History: Appendectomy, Back Surgery, Section, Orthopedic Surgery Additional Past Surgical History / Comment(s): stomach cancer Past Anesthesia/Blood Transfusion Reactions: No Reported Reaction Past Psychological History: Anxiety, Bipolar, Depression, PTSD Smoking Status: Current every day smoker Past Alcohol Use History: None Reported Past Drug Use History: None Reported - Past Family History Father Additional Family Medical History / Comment(s): Father is alive with history of diabetes and stomach problems. Mother Additional Family Medical History / Comment(s): Mother has history of diabetes, coronary artery disease and COPD. Sister(s) Additional Family Medical History / Comment(s): Patient has sisters all have female problems. She does state there is breast cancer history in her aunt. Son(s) Additional Family Medical History / Comment(s): Patient has one son with no major medical problems. General Exam Limitations: altered mental status General appearance: other (Patient is slightly drowsy but easily responds to voice.) Head exam: Present: atraumatic, normocephalic Eye exam: Present: normal appearance, PERRL, EOMI. Absent: nystagmus ENT exam: Present: normal oropharynx Neck exam: Present: normal inspection. Absent: tenderness, meningismus Respiratory exam: Present: normal lung sounds bilaterally Cardiovascular Exam: Present: regular rate, normal rhythm Expanded Peripheral pulses: 2+: Dorsalis Pedis (R), Dorsalis Pedis (L) GI/Abdominal exam: Present: soft. Absent: tenderness Extremities exam: Present: other (Left sullivan with mild erythema and warmth, from ankle to mid sullivan) Neurological exam: Present: alert Expanded Neurological exam: Present: protecting the airway Patient oriented to: Present: person, place. Absent: time Cranial nerves: EOM's Intact: Normal Sensory exam: Upper Extremity Light Touch: Normal, Lower Extremity Light Touch: Normal Motor strength exam: RUE: 5, LUE: 5, RLE: 5, LLE: 5 Eye Response: (4) open spontaneously Motor Response: (6) obeys commands Verbal Response: (4) confused conversation Psychiatric exam: Present: normal affect, normal mood Skin exam: Present: erythema Course Vital Signs 10/20/19 10/20/19 10/20/19 16:27 17:26 18:42 Temperature 98.2 F Pulse Rate 70 73 74 Respiratory 16 18 18 Rate Blood Pressure 106/55 120/69 138/73 O2 Sat by Pulse 98 99 97 Oximetry EKG Findings - EKG Comments: EKG Findings:: Normal sinus rhythm 71. HI 168. QRS 96. QT 468. QTC 508. Normal axis. Normal QRS. No acute ST change. Medical Decision Making - Medical Decision Making Patient reevaluated and slightly more alert. Patient updated on results and plan. Case was discussed in detail with Dr. Harris, covering for Dr. Haq, who will admit. Patient does have signs of infection however possible overmedication likely his at least part of change in patient's mental status - Lab Data Result diagrams: 10/20/19 16:56 10/20/19 16:56 Lab Results 0410/20/19 10/20/19 Range/Units 16:55 16:56 16:56 WBC 11.7 H (3.8-10.6) k/uL RBC 2.85 L (3.80-5.40) m/uL Hgb 8.4 L (11.4-16.0) gm/dL Hct 27.5 L (34.0-46.0) % MCV 96.6 (80.0-100.0) fL MCH 29.4 (25.0-35.0) pg MCHC 30.4 L (31.0-37.0) g/dL RDW 15.4 (11.5-15.5) % Plt Count 189 (150-450) k/uL Neutrophils % 91 % Lymphocytes % 4 % Monocytes % 4 % Eosinophils % 1 % Basophils % 0 % Neutrophils # 10.6 H (1.3-7.7) k/uL Lymphocytes # 0.4 L (1.0-4.8) k/uL Monocytes # 0.4 (0-1.0) k/uL Eosinophils # 0.1 (0-0.7) k/uL Basophils # 0.0 (0-0.2) k/uL Hypochromasia Marked PT 10.7 (9.0-12.0) sec INR 1.0 (<1.2) APTT 29.6 (22.0-30.0) sec Sodium (137-145) mmol/L Potassium (3.5-5.1) mmol/L Chloride (98-107) mmol/L Carbon Dioxide (22-30) mmol/L Anion Gap mmol/L BUN (7-17) mg/dL Creatinine (0.52-1.04) mg/dL Est GFR (CKD-EPI)AfAm (>60 ml/min/1.73 sqM) Est GFR (CKD-EPI)NonAf (>60 ml/min/1.73 sqM) Glucose (74-99) mg/dL POC Glucose (mg/dL) 127 H (75-99) mg/dL POC Glu Brake Mechanic ID [facility] Plasma Lactic Acid Cristiano (0.7-2.0) mmol/L Calcium (8.4-10.2) mg/dL Total Bilirubin (0.2-1.3) mg/dL AST (14-36) U/L ALT (4-34) U/L Alkaline Phosphatase (38-126) U/L Creatine Kinase (30-135) U/L Troponin I (0.000-0.034) ng/mL Total Protein (6.3-8.2) g/dL Albumin (3.5-5.0) g/dL Urine Color Urine Appearance (Clear) Urine pH (5.0-8.0) Ur Specific [place] (1.001-1.035) Urine Protein (Negative) Urine Glucose (UA) (Negative) Urine Ketones (Negative) Urine Blood (Negative) Urine Nitrite (Negative) Urine Bilirubin (Negative) Urine Urobilinogen (<2.0) mg/dL Ur Leukocyte Esterase (Negative) Urine RBC (0-5) /hpf Urine WBC (0-5) /hpf Hyaline Casts (0-2) /lpf Urine Opiates Screen (NotDetected) Ur Oxycodone Screen (NotDetected) Urine Methadone Screen (NotDetected) Ur Propoxyphene Screen (NotDetected) Ur Barbiturates Screen (NotDetected) U Tricyclic Antidepress (NotDetected) Ur Phencyclidine Scrn (NotDetected) Ur Amphetamines Screen (NotDetected) U Methamphetamines Scrn (NotDetected) U Benzodiazepines Scrn (NotDetected) Urine Cocaine Screen (NotDetected) U Marijuana (THC) Screen (NotDetected) Serum Alcohol mg/dL Coronavirus (PCR) (Not Detectd) 10/20/19 10/20/19 10/20/19 Range/Units 16:56 16:56 16:56 WBC (3.8-10.6) k/uL RBC (3.80-5.40) m/uL Hgb (11.4-16.0) gm/dL Hct (34.0-46.0) % MCV (80.0-100.0) fL MCH (25.0-35.0) pg MCHC (31.0-37.0) g/dL RDW (11.5-15.5) % Plt Count (150-450) k/uL Neutrophils % % Lymphocytes % % Monocytes % % Eosinophils % % Basophils % % Neutrophils # (1.3-7.7) k/uL Lymphocytes # (1.0-4.8) k/uL Monocytes # (0-1.0) k/uL Eosinophils # (0-0.7) k/uL Basophils # (0-0.2) k/uL Hypochromasia PT (9.0-12.0) sec INR (<1.2) APTT (22.0-30.0) sec Sodium 137 (137-145) mmol/L Potassium 3.8 (3.5-5.1) mmol/L Chloride 109 H (98-107) mmol/L Carbon Dioxide 18 L (22-30) mmol/L Anion Gap 10 mmol/L BUN 18 H (7-17) mg/dL Creatinine 1.43 H (0.52-1.04) mg/dL Est GFR (CKD-EPI)AfAm 44 (>60 ml/min/1.73 sqM) Est GFR (CKD-EPI)NonAf 38 (>60 ml/min/1.73 sqM) Glucose 110 H (74-99) mg/dL POC Glucose (mg/dL) (75-99) mg/dL POC Glu Brake Mechanic ID Plasma Lactic Acid Cristiano 0.6 L (0.7-2.0) mmol/L Calcium 8.1 L (8.4-10.2) mg/dL Total Bilirubin 0.5 (0.2-1.3) mg/dL AST 18 (14-36) U/L ALT 8 (4-34) U/L Alkaline Phosphatase 73 (38-126) U/L Creatine Kinase 93 (30-135) U/L Troponin I <0.012 (0.000-0.034) ng/mL Total Protein 5.9 L (6.3-8.2) g/dL Albumin 3.4 L (3.5-5.0) g/dL Urine Color Urine Appearance (Clear) Urine pH (5.0-8.0) Ur Specific [place] (1.001-1.035) Urine Protein (Negative) Urine Glucose (UA) (Negative) Urine Ketones (Negative) Urine Blood (Negative) Urine Nitrite (Negative) Urine Bilirubin (Negative) Urine Urobilinogen (<2.0) mg/dL Ur Leukocyte Esterase (Negative) Urine RBC (0-5) /hpf Urine WBC (0-5) /hpf Hyaline Casts (0-2) /lpf Urine Opiates Screen (NotDetected) Ur Oxycodone Screen (NotDetected) Urine Methadone Screen (NotDetected) Ur Propoxyphene Screen (NotDetected) Ur Barbiturates Screen (NotDetected) U Tricyclic Antidepress (NotDetected) Ur Phencyclidine Scrn (NotDetected) Ur Amphetamines Screen (NotDetected) U Methamphetamines Scrn (NotDetected) U Benzodiazepines Scrn (NotDetected) Urine Cocaine Screen (NotDetected) U Marijuana (THC) Screen (NotDetected) Serum Alcohol <10 mg/dL Coronavirus (PCR) (Not Detectd) 10/20/19 10/20/19 Range/Units 16:56 17:23 WBC (3.8-10.6) k/uL RBC (3.80-5.40) m/uL Hgb (11.4-16.0) gm/dL Hct (34.0-46.0) % MCV (80.0-100.0) fL MCH (25.0-35.0) pg MCHC (31.0-37.0) g/dL RDW (11.5-15.5) % Plt Count (150-450) k/uL Neutrophils % % Lymphocytes % % Monocytes % % Eosinophils % % Basophils % % Neutrophils # (1.3-7.7) k/uL Lymphocytes # (1.0-4.8) k/uL Monocytes # (0-1.0) k/uL Eosinophils # (0-0.7) k/uL Basophils # (0-0.2) k/uL Hypochromasia PT (9.0-12.0) sec INR (<1.2) APTT (22.0-30.0) sec Sodium (137-145) mmol/L Potassium (3.5-5.1) mmol/L Chloride (98-107) mmol/L Carbon Dioxide (22-30) mmol/L Anion Gap mmol/L BUN (7-17) mg/dL Creatinine (0.52-1.04) mg/dL Est GFR (CKD-EPI)AfAm (>60 ml/min/1.73 sqM) Est GFR (CKD-EPI)NonAf (>60 ml/min/1.73 sqM) Glucose (74-99) mg/dL POC Glucose (mg/dL) (75-99) mg/dL POC Glu Brake Mechanic ID Plasma Lactic Acid Cristiano (0.7-2.0) mmol/L Calcium (8.4-10.2) mg/dL Total Bilirubin (0.2-1.3) mg/dL AST (14-36) U/L ALT (4-34) U/L Alkaline Phosphatase (38-126) U/L Creatine Kinase (30-135) U/L Troponin I (0.000-0.034) ng/mL Total Protein (6.3-8.2) g/dL Albumin (3.5-5.0) g/dL Urine Color Yellow Urine Appearance Clear (Clear) Urine pH 6.0 (5.0-8.0) Ur Specific [place] 1.019 (1.001-1.035) Urine Protein 1+ H (Negative) Urine Glucose (UA) Negative (Negative) Urine Ketones Negative (Negative) Urine Blood Small H (Negative) Urine Nitrite Negative (Negative) Urine Bilirubin Negative (Negative) Urine Urobilinogen <2.0 (<2.0) mg/dL Ur Leukocyte Esterase Negative (Negative) Urine RBC 45 H (0-5) /hpf Urine WBC 2 (0-5) /hpf Hyaline Casts 6 H (0-2) /lpf Urine Opiates Screen Not Detected (NotDetected) Ur Oxycodone Screen Not Detected (NotDetected) Urine Methadone Screen Not Detected (NotDetected) Ur Propoxyphene Screen Not Detected (NotDetected) Ur Barbiturates Screen Not Detected (NotDetected) U Tricyclic Antidepress Not Detected (NotDetected) Ur Phencyclidine Scrn Not Detected (NotDetected) Ur Amphetamines Screen Not Detected (NotDetected) U Methamphetamines Scrn Not Detected (NotDetected) U Benzodiazepines Scrn Detected H (NotDetected) Urine Cocaine Screen Not Detected (NotDetected) U Marijuana (THC) Screen Not Detected (NotDetected) Serum Alcohol mg/dL Coronavirus (PCR) Not Detected (Not Detectd) - Radiology Data Radiology results: report reviewed (Computed tomography scan of the brain shows mild. Ventricular white matter ischemic change. Prior is similar. Ultrasound left leg negative for DVT.), image reviewed (Chest x-ray shows small posterior left lung infiltrate. Correlate for atelectasis or pneumonia.) Disposition Clinical Impression: Cellulitis, Drowsiness, Pneumonia Disposition: ADMITTED IP TO THIS HOSP Is patient prescribed a controlled substance at d/c from ED?: No Referrals: Meseret Haq MD [Primary Care Provider] - 1-2 days Decision Time: 18:57
[2019-10-20 17:13] LABS: Basophils % (A) 0 %; Eosinophils # (A) 0.1 k/uL (0-0.7); Eosinophils % (A) 1 %; HCT 27.5 % (34.0-46.0); HGB 8.4 gm/dL (11.4-16.0); Hypochromasia Marked; Lymphocytes # (A) 0.4 k/uL (1.0-4.8); Lymphocytes % (A) 4 %; MCH 29.4 pg (25.0-35.0); MCHC 30.4 g/dL (31.0-37.0); MCV 96.6 fL (80.0-100.0); Monocytes # (A) 0.4 k/uL (0-1.0); Monocytes % (A) 4 %; Neutrophils # (A) 10.6 k/uL (1.3-7.7); Neutrophils % (A) 91 %; Platelet Count 189 k/uL (150-450); RBC 2.85 m/uL (3.80-5.40); RDW 15.4 % (11.5-15.5); WBC 11.7 k/uL (3.8-10.6)
--- NOTE | 2019-10-20 17:18 | CT ---
EXAMINATION TYPE: CT brain wo con DATE OF EXAM: 10/20/2019 COMPARISON: 11/05/2018 INDICATION: Altered mental status DLP: 1094.4 mGycm, Automated exposure control for dose reduction was used. CONTRAST: None CT of the brain is performed utilizing 3 mm thick sections through the posterior fossa and 3 mm thick sections through the remaining calvarium. Study is performed within 24 hours of arrival to the hosp [facility]. No abnormal hyperdensity is present to suggest an acute intracranial hemorrhage. No mass lesion is evident. No acute infarcts are evident. Mild periventricular white matter hypodensity is present, most likely on the basis of chronic white matter change. Ventricles and sulci are appropriate for the patient age. Paranasal sinuses and mastoid air cells within the [id number] are clear. IMPRESSIONS: 1. Mild periventricular white matter ischemic type changes, stable from prior exam.
[2019-10-20 17:21] LABS: Partial Thromboplastin Time 29.6 sec (22.0-30.0); Prothrombin Time 10.7 sec (9.0-12.0)
[2019-10-20 17:31] LABS: ALT 8 U/L (4-34); AST 18 U/L (14-36); African American GFR (CKD) 44 (>60 ml/min/1.73 sqM); Albumin 3.4 g/dL (3.5-5.0); Alcohol <10 mg/dL; Alkaline Phosphatase 73 U/L (38-126); Anion Gap 10 mmol/L; Blood Urea Nitrogen 18 mg/dL (7-17); Calcium 8.1 mg/dL (8.4-10.2); Carbon Dioxide 18 mmol/L (22-30); Chloride 109 mmol/L (98-107); Creatine Kinase 93 U/L (30-135); Glucose 110 mg/dL (74-99); Non-African American GFR(CKD) 38 (>60 ml/min/1.73 sqM); Potassium 3.8 mmol/L (3.5-5.1); Sodium 137 mmol/L (137-145); Total Bilirubin 0.5 mg/dL (0.2-1.3); Total Protein 5.9 g/dL (6.3-8.2)
--- NOTE | 2019-10-20 17:38 | XR ---
EXAMINATION TYPE: XR chest 2V DATE OF EXAM: 10/20/2019 COMPARISON: 11/07/2018 INDICATION: Altered mental status TECHNIQUE: Frontal and lateral views of the chest are obtained. FINDINGS: The heart size is normal. The pulmonary vasculature is normal. The lateral projection there is some increased density within the posterior costophrenic angle on the left. Small infiltrate should be considered. Remainder the chest appears clear. There is mild elevat ion of the left diaphragm. Air and bowel is under the left diaphragm.. IMPRESSION: 1. Small posterior left lung infiltrate. Correlate for atelectasis or pneumonia. Consider atypical pn eumonia within the differential.
[2019-10-20 17:41] LABS: Appearance,Urine Clear (Clear); Bilirubin,Urine Negative (Negative); Blood,Urine Small (Negative); Color,Urine Yellow; Glucose,Urine (UA) Negative (Negative); Hyaline Casts,Urine 6 /lpf (0-2); Ketones,Urine Negative (Negative); Leukocyte Esterase,Urine Negative (Negative); Nitrite,Urine Negative (Negative); Protein,Urine 1+ (Negative); RBC,Urine 45 /hpf (0-5); Specific Gravity,Urine 1.019 (1.001-1.035); Urobilinogen,Urine <2.0 mg/dL (<2.0); WBC,Urine 2 /hpf (0-5)
[2019-10-20 17:49] LABS: Amphetamine Screen,Urine Not Detected (NotDetected); Barbiturate Screen,Urine Not Detected (NotDetected); Benzodiazepines Screen,Urine Detected (NotDetected); Cocaine Screen,Urine Not Detected (NotDetected); Methadone Screen, Urine Not Detected (NotDetected); Opiate Screen,Urine Not Detected (NotDetected); Oxycodone Screen, Urine Not Detected (NotDetected); Phencyclidine Screen,Urine Not Detected (NotDetected); Tricyclic Antidepressant,Urine Not Detected (NotDetected); Urn Cannabinoid Scrn Not Detected (NotDetected)
--- NOTE | 2019-10-20 18:21 | US ---
EXAMINATION TYPE: US venous doppler duplex LE LT DATE OF EXAM: 10/20/2019 5:56 PM COMPARISON: NONE CLINICAL HISTORY: pain. Pain left leg, redness and edema left lower leg SIDE PERFORMED: left TECHNIQUE: The lower extremity deep venous system is examined utilizing real time linear array sonog roxana with graded compression, doppler sonography and color-flow sonography. VESSELS IMAGED: External Iliac Vein (EIV) Common Femoral Vein Deep Femoral Vein Greater Saphenous Vein * Femoral Vein Popliteal Vein Small Saphenous Vein * Proximal Calf Veins (* superficial vessels) Left Leg: No evidence of DVT IMPRESSION: 1. Left lower extremity ultrasound negative for deep venous thrombosis.
[2019-10-20] MEDS ORDERED: LEVOFLOXACIN 750MG-D5W PMX 750 MG in DEXTROSE/WATER 1 150ML.BAG IVPB STA (18:58)
[2019-10-20] MEDS ORDERED: PNEUMONIA PROTOCOL UTILIZED 1 EACH MISC PO PRN (18:58)
[2019-10-20] MEDS ORDERED: ALBUTEROL NEBULIZED 2.5 MG/3 ML INHALATION PRN (20:00)
[2019-10-20] MEDS: MAGNESIUM OXIDE 400 MG TAB PO SCH (21:00)
[2019-10-20] MEDS: SODIUM BICARBONATE TAB 650 MG TAB PO SCH (21:00)
[2019-10-20] MEDS: SODIUM CHLORIDE 0.9% 1,000 ML IV SCH (21:04)
[2019-10-20] MEDS: DICYCLOMINE 20 MG TAB PO SCH (21:16)
[2019-10-21] MEDS ORDERED: GABAPENTIN 300 MG CAP PO SCH (06:00)
--- NOTE | 2019-10-21 07:16 | XR ---
EXAMINATION TYPE: XR chest 2V DATE OF EXAM: 10/21/2019 COMPARISON: [id number] HISTORY: Follow-up for pneumonia. Prior altered mental status. TECHNIQUE: Frontal and lateral views of the chest are obtained. FINDINGS: There is a very trace left pleural effusion blunting the costophrenic angle with associate d left basilar airspace disease, likely atelectasis. Left hemidiaphragm elevation has resolved and th erefore degree of atelectasis presumed to have. Cardiomediastinal silhouette is upper limits of maribel l. Minimal degenerative change of the spine. No new focal consolidation. IMPRESSION: Improved left basilar atelectasis with trace left pleural effusion and minimal airspace disease at the costophrenic angle, likely also atelectasis.
[2019-10-21] MEDS: SODIUM BICARBONATE TAB 650 MG TAB PO SCH ×2 (08:42→21:28)
[2019-10-21] MEDS: FAMOTIDINE 20 MG TAB PO SCH (08:42)
[2019-10-21] MEDS: HEPARIN SODIUM,PORCINE 5,000 UNIT/ML 1 ML VIAL SQ SCH ×2 (08:42→21:28)
[2019-10-21] MEDS: DULoxetine HCL 60 MG CAPSULE.DR PO SCH (08:42)
[2019-10-21] MEDS: GABAPENTIN 300 MG CAP PO SCH ×3 (08:42→21:28)
[2019-10-21] MEDS: FOLIC ACID 1 MG TAB PO SCH (08:42)
[2019-10-21] MEDS: DICYCLOMINE 20 MG TAB PO SCH ×2 (08:42→21:36)
[2019-10-21] MEDS: MAGNESIUM OXIDE 400 MG TAB PO SCH ×2 (08:42→21:28)
[2019-10-21] MEDS ORDERED: ERGOCALCIFEROL 50,000 UNIT CAP PO SCH (09:00)
[2019-10-21] MEDS: LEVOFLOXACIN 250MG-D5W PMX 250 MG in DEXTROSE/WATER 1 50ML.BAG IVPB SCH (10:46)
[2019-10-21] MEDS: tiZANidine 4 MG TAB PO PRN ×2 (10:46→22:52)
[2019-10-21] MEDS ORDERED: HYDROcodone/APAP 5-325MG 1 EACH TAB PO PRN (11:05)
[2019-10-21] MEDS ORDERED: ACETAMINOPHEN TAB 325 MG TAB PO PRN (11:05)
--- NOTE | 2019-10-21 12:36 | P.HPIM ---
History of Present Illness H&P Date: 10/21/19 Chief Complaint: Left lower lobepneumonia/cellulitis This is a 64-year-old female patient of mine with history of TIA, chronic pain, lupus anticoagulant, multiple sclerosis, fibromyalgia, chronic kidney disease stage III, anemia of chronic disease, generalized anxiety disorder and recurrent depression, vitamin D deficiency, gastroesophageal reflux disease. 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 and has been receiving treatment, chronic pancreatitis with chronic pain syndromes was on large dose of dilaudid for a long time till I weaned her off and currently has been using tramadol for pain control presented to the Emergency department at [facility] because of increased pain and swelling in the left leg associated with mental status changes , she underwent CAT scan of the brain that was negative for acute abnormality , CXR suggestive of left lower lobe atelectasis Vs Pneumonia and also underwent venous doppler of the left lower extremity that was negative for DVT, but here was increased edema and swelling in both lower extremity most of the left lower extremity than the right lower extremity, there is also what appears to be erythema nodosum on the front of the sullivan, patient was started on IV antibiotic in the form of Levaquin we will add ceftriaxone 1 g IV piggyback every 24 hours, infectious disease consultation will be obtained. Review of Systems Constitutional: Reports chronic pain, Reports malaise, Reports weakness, Denies anorexia Eyes: denies blurred vision, denies bulging eye, denies decreased vision Ears, nose, mouth and throat: Denies dysphagia, Denies neck lump, Denies sore throat Cardiovascular: Denies chest pain, Denies decreased exercise tolerance, Denies dyspnea on exertion, Denies lightheadedness, Denies orthopnea, Denies shortness of breath, Denies syncope Respiratory: Denies congestion, Denies cough with sputum, Denies home oxygen, Denies sleep apnea, Denies snoring, Denies wheezing Gastrointestinal: Reports abdominal pain, Denies BRBPR, Denies change in bowel habits, Denies dyspepsia, Denies heartburn, Denies melena, Denies nausea, Denies vomiting Genitourinary: Denies dysuria, Denies nocturia Musculoskeletal: Denies gait dysfunction, Denies low back pain Musculoskeletal: left: ankle swelling, absent: ankle pain, ankle stiffness, el bow pain, elbow stiffness, elbow swelling, foot pain, foot stiffness, foot swelling, hand pain, hand stiffness, hand swelling, hip pain, hip stiffness, hip swelling, knee pain, knee stiffness, knee swelling, shoulder pain, shoulder stiffness, shoulder swelling, wrist pain, wrist stiffness, wrist swelling Integumentary: Reports color changes Neurological: Reports weakness, Denies migraines, Denies seizures, Denies tremors, Denies vertigo Psychiatric: Reports anxiety, Reports depression, Denies sadness/tearfulness, Denies sleep disturbances, Denies suicidal ideation Endocrine: Denies fatigue, Denies weight change Past Medical History Past Medical History: Cancer, COPD, CVA/TIA, Fibromyalgia Additional Past Medical History / Comment(s): Lupus, TIA, right hand tendons severed, closed head injury, multiple sclerosis History of Any Multi-Drug Resistant Organisms: C-DIFF Date of last positivie culture/infection: 2014 MDRO Source:: patient Past Surgical History: Appendectomy, Back Surgery, Section, Orthopedic Surgery Additional Past Surgical History / Comment(s): stomach cancer Past Anesthesia/Blood Transfusion Reactions: No Reported Reaction Past Psychological History: Anxiety, Bipolar, Depression, PTSD Smoking Status: Current some day smoker Past Alcohol Use History: None Reported Additional Past Alcohol Use History / Comment(s): Patient is a smoker of 2-3 pac ks per day since she was 12 years of age and has recently cut back to 4 cigarettes per day. She denies any alcohol use. Past Drug Use History: None Reported - Past Family History Father Additional Family Medical History / Comment(s): Father has history of diabetes and stomach problems. Mother Additional Family Medical History / Comment(s): Mother has history of diabetes, coronary artery disease and COPD. Sister(s) Additional Family Medical History / Comment(s): Patient has sisters all have female problems. She does state there is breast cancer history in her aunt. Son(s) Additional Family Medical History / Comment(s): Patient has one son with no major medical problems. Medications and Allergies Home Medications Medication Instructions Recorded Confirmed Type Gabapentin [Neurontin] 300 mg PO TID 04/14/15 10/20/19 History DULoxetine HCL [Cymbalta] 60 mg PO DAILY 05/24/17 10/20/19 History Ergocalciferol [Vitamin D2 50,000 unit PO MO 05/24/17 10/20/19 History (DRISDOL)] Folic Acid 1 mg PO DAILY 05/24/17 10/20/19 History Magnesium Oxide [Mag-Ox] 400 mg PO BID 05/24/17 10/20/19 History traZODone HCL 150 mg PO HS 02/27/18 10/20/19 History Dicyclomine [Bentyl] 20 mg PO BID 07/10/18 10/20/19 History Potassium Chloride ER [K-Dur 20] 20 meq PO DIRECTED 11/05/18 07/24/19 History Famotidine [Pepcid] 20 mg PO DAILY #30 tab 11/08/18 10/20/19 Rx ALPRAZolam [Xanax] 0.5 mg PO BID 10/20/19 10/20/19 History Albuterol Sulfate [Proair Hfa] 2 puff INHALATION RT-Q4H PRN 10/20/19 10/20/19 History Sodium Bicarbonate Tab 650 mg PO BID 10/20/19 10/20/19 History tiZANidine [Zanaflex] 2 mg PO HS PRN 10/20/19 10/20/19 History traMADol HCL 50 mg PO Q6H PRN 10/20/19 10/20/19 History Allergies Allergy/AdvReac Type Severity Reaction Status Date / Time alcohol Allergy Unknown Verified 10/20/19 18:40 aspirin Allergy Unknown Verified 10/20/19 18:40 divalproex sodium Allergy Unknown Verified 10/20/19 18:40 [From Depakote] erythromycin base Allergy Unknown Verified 10/20/19 18:40 ketorolac [From Toradol] Allergy Unknown Verified 10/20/19 18:40 Penicillins Allergy Unknown Verified 10/20/19 18:40 shellfish derived [Shellfish] Allergy Unknown Verified 10/20/19 18:40 strawberry Allergy Unknown Verified 10/20/19 18:40 Sulfa (Sulfonamide Allergy Unknown Verified 10/20/19 18:40 Antibiotics) Physical Exam Vitals: Vital Signs Temp Pulse Pulse Resp BP BP Pulse Ox 10/21/19 02:55 98.9 F 83 149/72 99 10/21/19 00:00 18 10/20/19 20:40 98.4 F 79 152/68 100 10/20/19 20:17 18 10/20/19 19:26 97.9 F 77 18 132/71 97 10/20/19 19:22 19 10/20/19 18:42 74 18 138/73 97 10/20/19 17:26 73 18 120/69 99 10/20/19 16:27 98.2 F 70 16 106/55 98 Intake and Output 10/20/19 10/20/19 10/21/19 14:59 22:59 06:59 Intake Total 450 800 Output Total 300 Balance 150 800 Intake: Intake, IV Titration 450 800 Amount Levofloxacin 750Mg-D5w 150 Pmx 750 mg In Dextrose/ Water 1 150ml.bag @ 100 mls/hr IVPB ONCE STA Rx#: [id number] Sodium Chloride 0.9% 1, 300 800 000 ml @ 100 mls/hr IV . [facility] Rx#:[id number] Output: Urine 300 Uretheral ([place]) 300 Other: Voiding Method Toilet Toilet # Voids 0 2 Weight 54.431 kg HEENT: head is atraumatic normocephalic pupils were equal round reactive to light and accommodations extra ocular muscle movements were intact. Neck: supple , no JVP, no carotid bruits. Chest: decrease breath sounds at the bases with few ronchi , there is no expiratory wheezes or intercostal retractions. Heart: first heart sound is depressed second heart sound is normal there is no gallop or murmur. Abdomen: soft , mild non specific tenderness, there is no rebound or guarding p ositive bowel sounds. Extremities: there is increased edema and mild erythema likely stasis in the left lower extremity, there is no calf tenderness, DP + 2 bilaterally. Neurologic examination: patient is awake alert and oriented X 3 CN II-XII are grossly intact, muscle power 4/5 in bilateral upper and lower extremities, DTR were normal, Babinski's are flexor bilaterally. Results CBC & Chem 7: 10/20/19 16:56 10/20/19 16:56 Labs: Abnormal Lab Results - Last 24 Hours (Table) 10/20/19 10/20/19 10/20/19 Range/Units 16:55 16:56 16:56 WBC 11.7 H (3.8-10.6) k/uL RBC 2.85 L (3.80-5.40) m/uL Hgb 8.4 L (11.4-16.0) gm/dL Hct 27.5 L (34.0-46.0) % MCHC 30.4 L (31.0-37.0) g/dL Neutrophils # 10.6 H (1.3-7.7) k/uL Lymphocytes # 0.4 L (1.0-4.8) k/uL Chloride 109 H (98-107) mmol/L Carbon Dioxide 18 L (22-30) mmol/L BUN 18 H (7-17) mg/dL Creatinine 1.43 H (0.52-1.04) mg/dL Glucose 110 H (74-99) mg/dL POC Glucose (mg/dL) 127 H (75-99) mg/dL Plasma Lactic Acid Cristiano (0.7-2.0) mmol/L Calcium 8.1 L (8.4-10.2) mg/dL Total Protein 5.9 L (6.3-8.2) g/dL Albumin 3.4 L (3.5-5.0) g/dL Urine Protein (Negative) Urine Blood (Negative) Urine RBC (0-5) /hpf Hyaline Casts (0-2) /lpf U Benzodiazepines Scrn (NotDetected) 10/20/19 10/20/19 Range/Units 16:56 17:23 WBC (3.8-10.6) k/uL RBC (3.80-5.40) m/uL Hgb (11.4-16.0) gm/dL Hct (34.0-46.0) % MCHC (31.0-37.0) g/dL Neutrophils # (1.3-7.7) k/uL Lymphocytes # (1.0-4.8) k/uL Chloride (98-107) mmol/L Carbon Dioxide (22-30) mmol/L BUN (7-17) mg/dL Creatinine (0.52-1.04) mg/dL Glucose (74-99) mg/dL POC Glucose (mg/dL) (75-99) mg/dL Plasma Lactic Acid Cristiano 0.6 L (0.7-2.0) mmol/L Calcium (8.4-10.2) mg/dL Total Protein (6.3-8.2) g/dL Albumin (3.5-5.0) g/dL Urine Protein 1+ H (Negative) Urine Blood Small H (Negative) Urine RBC 45 H (0-5) /hpf Hyaline Casts 6 H (0-2) /lpf U Benzodiazepines Scrn Detected H (NotDetected) Thrombosis Risk Factor Assmnt - Choose All That Apply Each Factor Represents 1 point: Abnormal pulmonary function (COPD), Medical pt on bed rest Other Risk Factors: Yes Each Risk Factor Represents 2 Points: Age 61-74 years Thrombosis Risk Factor Assessment Total Risk Factor Score: 4 Thrombosis Risk Factor Assessment Level: Moderate Risk Assessment and Plan Assessment: Assessment and plan: 1. Left lower leg cellulitis. Continue IV antibiotic in the form of Levaquin and add ceftriaxone, infectious disease consultation. 2. Left lower lobe atelectasis doubt pneumonia. Continue IV antibiotic for now monitor the patient in the next 24 hours. 3. Mild confusion. likely related to medications with some impact from pneumonia. better. 4. 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 we will continue with Folic acid 1 mg orally daily and she has been receiving Erythropoitein through her [employer]. 5. Acute on chronic kidney disease stage 3. we will continue with IVF for 24 hours then heplock, we will continue with Sodium bicrab 650 mg orally bid, r epeat CMP in AM. 6. History of Lupus anticoagulant. stable. 7. Chronic pancreatitis with chronic pain syndrome. we will continue with Bentyl . 8. Chronic pain syndrome. we will continue with Gabapentin 300 mg orlally tid and Tramadol 50 mg po q 6 hours as needed. 9. GERD. we will continue with Pepcid 20 mg orally daily. 10. Depression. we will continue with Cymbalta 60 mg orally daily. 11. Anxiety. we will continue with Xanax as needed, aware of the side effects of the treatment and the potential of habitual use. 12. Insomnia. we will continue Trazodone 100 mg po at bedtime. 13. Vitamin D deficiency. we will continue with vitamin D supplement. 14. History of Multiple sclerosis. we will continue with Tizanidine 2 mg orally at bedtime. 15. DVT prophylaxis. we will continue with Heparin 5000 units SC Q 12 H. 16. GI prophylaxis. we will continue with Pepcid. 17. Admits to inpatient, estimated length of stay 2 midnights. 18. Full code.
[2019-10-21] MEDS: traMADol 50 MG TAB PO PRN ×2 (12:55→19:39)
[2019-10-21] MEDS: ALPRAZolam 0.5 MG TAB PO SCH ×2 (12:56→21:28)
--- NOTE | 2019-10-21 16:04 | CDI ---
Documentation Clarification Form Date: 10/21/2019 1601 CDS: Cassie Connors RN, CCDS Admit Date:10/20/2019 1859 Patient Name: Tegan Lopez ATTENTION: The Clinical Documentation Specialists (CDI) and [facility] Coding Staff appreciate your assistance in clarifying documentation. Please respond to the clarification below the line at the bottom and electronically sign. The CDI & [facility] Coding staff will review the response and follow-up if needed. Please note: Queries are made part of the Legal Health Record. If you have any questions, please contact the author of this message via ITS. Dr. Haq Altered Mental Status was documented in the EC notes and Confusion in the H&P and requires further specificity Patient history/risk factors: COPD, CVA/TIA, CHI, MS, Anxiety, Bipolar, depression, PTSD Clinical Indicators: 10/20 H&P: "Mild confusion. likely related to medications with some impact from pneumonia. better." 10/19 EC: "Chief Complaint: Altered Mental Status. Verbal Response: (4) confused conversation." 10/19 CT Brain: "Mild periventricular white matter ischemic type changes, stable from prior exam." 10/19 Labs: WBC 11.7, Hgb 8.4, Neutrophils 10.6, BUN 18, Creatinine 1.43, + benzodiazepines 10/19 1626 Admission Vital Signs: Temp 98.2, HR 70, RR 16, B/P 106/55, Spo2 98% RA Treatment: Medication: 0.9%NS @ 100 cc/hr, IV Levaquin 750 mg IVPB x 1 dose followed 250 mg IVPB q 24 hrs, Xanax .5 PO BID, Ceftriaxone 1 gm IVPB Q 24 hrs, Ultram 50 mg PO Q 6 hrs PRN Pain In your professional opinion, please clarify the etiology of the Altered Mental Status, if known. Metabolic Encephalopathy (specify Underlying Medical Illness) Toxic Encephalopathy (specify Underlying Medical Illness) Other condition (please specify) Unable to determine (Last Revision: September 2017) Metabolic encephalopathy due to cellulitis of left leg and possibly medications side effects. Please continue to document in your progress notes and discharge summary in order to capture severity of illness and risk of mortality. Include clinical findings that support your diagnosis. MTDD
--- NOTE | 2019-10-21 16:13 | CDI ---
Documentation Clarification Form Date: 10/21/2019 1601 CDS: Cassie Connors RN, CCDS Admit Date:10/20/2019 1859 Patient Name: Tegan Lopez ATTENTION: The Clinical Documentation Specialists (CDI) and [facility] Coding Staff appreciate your assistance in clarifying documentation. Please respond to the clarification below the line at the bottom and electronically sign. The CDI & [facility] Coding staff will review the response and follow-up if needed. Please note: Queries are made part of the Legal Health Record. If you have any questions, please contact the author of this message via ITS. Dr. Haq Coronavirus testing has been preformed on your patient. Please provide clinical significance of the lab result. Patient history/risk factors: COPD, CVA/TIA, MS, Fibomyagia smoker Clinical Indicators: 10/20 CXR:"Improved left basilar atelectasis with trace left pleural effusion and minimal airspace disease at the costophrenic angle, likely also atelectasis." 10/19 Labs: WBC 11.7, Hgb 8.4, Neutrophils 10.6, BUN 18, Creatinine 1.43, + benzodiazepines ABGs: not done 10/19 Viral Panel: Coronavirus (PCR) Negativee 10/19 1627 Admission Vital Signs: Temp 98.2, HR 70, RR 16, B/P 106/55, Spo2 98% RA Treatment 0.9%NS @ 100 cc/hr IV Levaquin 750 mg IVPB x 1 dose followed 250 mg IVPB q 24 hrs Ceftriaxone 1 gm IVPB Q 24 hrs In order to capture the severity of condition, please clarify if the above treatment/clinical indicators signify: COVID-19 ruled out COVID-19 False Negative testing, Clinically present (please identify clinical indicators) Other, please specify Unable to determine Please continue to document in your progress notes and discharge summary in order to capture severity of illness and risk of mortality. Include clinical findings that support your diagnosis. COVID-19 [facility]
[2019-10-21] MEDS ORDERED: LEVOFLOXACIN 750 MG TAB PO SCH (20:00)
[2019-10-21] MEDS: SODIUM CHLORIDE 0.9% 1,000 ML IV SCH (20:08)
[2019-10-21] MEDS: traZODone HCL 50 MG TAB PO SCH (21:28)
--- NOTE | 2019-10-22 01:42 | CONS ---
CONSULTATION DATE OF SERVICE: 10/21/2019 REASON FOR CONSULTATION: Left lower extremity cellulitis and question of pneumonia. HISTORY OF PRESENT ILLNESS: The patient is a 64-year-old female with a past medical history significant for the TIA, lupus, multiple sclerosis, fibromyalgia, red cell aplasia. The patient has been brought into the ER for evaluation of mental status changes in this patient has been complaining of left lower extremity swelling and redness that apparently has been getting for the last few days. The patient denies any history of any trauma to the left leg. She has been complaining of pain to the left leg more of a dull aching with intensity of 4 to 5 to 10, and no radiation currently with no skin breakdown or any drainage. The patient has been evaluated by the ER physician. On arrival to the ER, the patient did have chest x-ray with concern for left lower lobe atelectasis. This patient currently denies having any cough or sputum production. She also have left lower extremity Doppler was negative for DVT, however, did show diffuse swelling to the leg. The patient was started on Levaquin. Rocephin was added. Infectious Disease was consulted for further recommendations regarding antibiotic therapy. REVIEW OF SYSTEMS: Positive points have been mentioned in HPI. Rest of systems are negative. PAST MEDICAL HISTORY: TIA, chronic pain syndrome, lupus, multiple sclerosis, fibromyalgia, chronic renal insufficiency, generalized anxiety disorder, recurrent depression and C difficile. PAST SURGICAL HISTORY: Appendectomy, back surgery, . SOCIAL HISTORY: Current everyday smoker. Denies drinking or drug use. FAMILY HISTORY: Father with history of diabetes and coronary artery disease. ALLERGIES: Allergies to multiple medication including ASPIRIN, DEPAKOTE, ERYTHROMYCIN, PENICILLIN, however, has taken Keflex without any problem. MEDICATIONS: Medications include the patient is currently on Tylenol, [place], Ventolin, Xanax, Rocephin 1 gram daily. She is on Cymbalta vitamin D2, Levaquin, Zanaflex, Desyrel. PHYSICAL EXAMINATION: On examination, her blood pressure is 133/75 with a pulse of 74, temperature 98.5. She is 98% room air. General description is an elderly female lying in bed in no distress. No tachypnea or accessory muscle of respiration use. HEENT: Examination shows pallor, no scleral icterus. Oral mucous membrane is dry. No pharyngeal erythema or thrush. NECK: Trachea central. No thyromegaly. LUNGS: Unlabored breathing, decreased breath sounds at the bases. No wheeze. HEART: S1, S2. Regular rate and rhythm. No added sound. ABDOMEN: Soft. No tenderness. No guarding or rigidity. Left leg did have some erythematous patches to the sullivan and to the foot area which is slightly warm to touch and tender. Currently with no blisters or any drainage. NEUROLOGICAL: Patient is awake, alert, oriented x3. Mood and affect normal. LABS: Hemoglobin is 8.4, white count 11.7, BUN of 18, creatinine 1.43. Urine has been negative. Urine drug screen was positive for benzos. Og PCR was negative. DIAGNOSTIC IMPRESSION AND PLAN: 1. Patient admitted to the hospital with mental status changes which is likely multifactorial in this patient who did have a component of left lower extremity cellulitis likely from gram-positive skin tera. She was noted to have some atelectasis at the left lung base, clinical suspicion low for pneumonia as the patient did not have any predominant respiratory symptoms and abdomen was soft no clinical suspicion. Urine has been negative and no other focus of infection. 2. The patient with multiple antibiotic allergy that will limit the number of antibiotics safe to use. PLAN: 1. Discontinue Rocephin. 2. Start the patient on cefazolin 2 grams q.8 hours. Continue Levaquin. 3. Chris the area of the redness to the left leg. 4. We will follow on clinical condition and culture to further adjust medication if needed. Thank you for this consultation. Will follow this patient along with you. MMODL / IJN: [id number] /
[2019-10-22] MEDS: SODIUM CHLORIDE 0.9% 1,000 ML IV SCH ×2 (02:48→20:27)
[2019-10-22] MEDS: traMADol 50 MG TAB PO PRN ×2 (04:21→09:51)
[2019-10-22 07:19] LABS: Basophils % (A) 0 %; Eosinophils # (A) 0.1 k/uL (0-0.7); Eosinophils % (A) 2 %; HCT 23.8 % (34.0-46.0); HGB 7.4 gm/dL (11.4-16.0); Hypochromasia Marked; Lymphocytes # (A) 0.7 k/uL (1.0-4.8); Lymphocytes % (A) 18 %; MCH 30.5 pg (25.0-35.0); MCHC 31.2 g/dL (31.0-37.0); MCV 97.6 fL (80.0-100.0); Mean Platelet Volume 7.2; Monocytes # (A) 0.3 k/uL (0-1.0); Monocytes % (A) 6 %; Neutrophils # (A) 2.9 k/uL (1.3-7.7); Neutrophils % (A) 72 %; Platelet Count 172 k/uL (150-450); RBC 2.44 m/uL (3.80-5.40); RDW 15.3 % (11.5-15.5)
[2019-10-22 07:37] LABS: ALT <6 U/L (4-34); AST 13 U/L (14-36); African American GFR (CKD) 52 (>60 ml/min/1.73 sqM); Albumin 2.5 g/dL (3.5-5.0); Alkaline Phosphatase 58 U/L (38-126); Anion Gap 7 mmol/L; Blood Urea Nitrogen 14 mg/dL (7-17); Carbon Dioxide 17 mmol/L (22-30); Chloride 112 mmol/L (98-107); Glucose 87 mg/dL (74-99); Non-African American GFR(CKD) 45 (>60 ml/min/1.73 sqM); Potassium 3.7 mmol/L (3.5-5.1); Sodium 136 mmol/L (137-145); Total Bilirubin 0.2 mg/dL (0.2-1.3); Total Protein 4.8 g/dL (6.3-8.2)
[2019-10-22] MEDS: SODIUM BICARBONATE TAB 650 MG TAB PO SCH ×2 (09:08→20:15)
[2019-10-22] MEDS: GABAPENTIN 300 MG CAP PO SCH ×3 (09:08→21:46)
[2019-10-22] MEDS: DULoxetine HCL 60 MG CAPSULE.DR PO SCH (09:08)
[2019-10-22] MEDS: ALPRAZolam 0.5 MG TAB PO SCH ×2 (09:08→21:46)
[2019-10-22] MEDS: FAMOTIDINE 20 MG TAB PO SCH (09:08)
[2019-10-22] MEDS: DICYCLOMINE 20 MG TAB PO SCH ×2 (09:08→20:15)
[2019-10-22] MEDS: MAGNESIUM OXIDE 400 MG TAB PO SCH ×2 (09:09→20:16)
[2019-10-22] MEDS: HEPARIN SODIUM,PORCINE 5,000 UNIT/ML 1 ML VIAL SQ SCH ×2 (09:09→20:16)
[2019-10-22] MEDS: FOLIC ACID 1 MG TAB PO SCH (09:09)
[2019-10-22] MEDS: LEVOFLOXACIN 250MG-D5W PMX 250 MG in DEXTROSE/WATER 1 50ML.BAG IVPB SCH (09:50)
[2019-10-22] MEDS: POTASSIUM CHLORIDE ER 20 MEQ TAB.ER PO SCH ×2 (09:51→20:15)
[2019-10-22] MEDS: tiZANidine 4 MG TAB PO PRN (09:51)
[2019-10-22] MEDS ORDERED: ONDANSETRON 4 MG/2 ML VIAL IVP PRN (10:00)
[2019-10-22] MEDS ORDERED: MORPHINE SULFATE 2 MG/ML SYRINGE ONE (10:28)
[2019-10-22] MEDS: MORPHINE SULFATE 2 MG/ML SYRINGE IVP PRN ×2 (10:30→20:16)
--- NOTE | 2019-10-22 13:48 | P.PN ---
Subjective Progress Note Date: 10/22/19 This is a 64-year-old female patient of mine with history of TIA, chronic pain, lupus anticoagulant, multiple sclerosis, fibromyalgia, chronic kidney disease stage III, anemia of chronic disease, generalized anxiety disorder and recurrent depression, vitamin D deficiency, gastroesophageal reflux disease. 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 and has been receiving treatment, chronic pancreatitis with chronic pain syndromes was on large dose of dilaudid for a long time till I weaned her off and currently has been using tramadol for pain control presented to the Emergency department at [facility] because of increased pain and swelling in the left leg associated with mental status changes , she underwent CAT scan of the brain that was negative for acute abnormality , CXR suggestive of left lower lobe atelectasis Vs Pneumonia and also underwent venous doppler of the left lower extremity that was negative for DVT, but here was increased edema and swe lling in both lower extremity most of the left lower extremity than the right lower extremity, there is also what appears to be erythema nodosum on the front of the sullivan, patient was started on IV antibiotic in the form of Levaquin we will add ceftriaxone 1 g IV piggyback every 24 hours, infectious disease consultation will be obtained. 10/21: Patient has been seen by Dr. Pat with recommendations for Kefzol and Levaquin. We have added local wound care with Silvadene dressing. Patient continues to complain of significant pain to the right shoulder and consult will be placed with Dr. Andersen for possible steroid injection. She is complaining of nausea and vomiting that started last evening. Zofran on. Morphine added for pain and to receive Zofran prior to dosing. Midline was placed yesterday. Patient's been afebrile, heart rate 61, blood pressure 116/71, pulse ox 97% on room air. Repeat blood work revealed WBC 4, hemoglobin dropped to 7.4, platelet count 174, sodium 136, potassium 3.7, chloride 112, CO2 17, BUN 14 creatinine 1.24. Objective - Vital Signs Vital signs: Vital Signs Temp 99.7 F H 10/22/19 01:13 Pulse 61 10/22/19 01:13 Resp 14 10/22/19 01:13 BP 116/71 10/22/19 01:13 Pulse Ox 97 04/28/20 01:13 Intake & Output 10/21/19 10/22/19 10/22/19 18:59 06:59 18:59 Intake Total 1000 Balance 1000 Intake: Intake, IV Titration 700 Amount Levofloxacin 250Mg-D5w 50 Pmx 250 mg In Dextrose/ Water 1 50ml.bag @ 50 mls /hr IVPB Q24H [facility] Rx#: [id number] Sodium Chloride 0.9% 1, 600 000 ml @ 100 mls/hr IV . Q10H [facility] Rx#:[id number] cefTRIAXone 1 gm In 50 Sodium Chloride 0.9% 50 ml @ 100 mls/hr IVPB Q24HR [facility] Rx#:[id number] Oral 300 Other: Voiding Method Toilet Toilet # Voids 3 1 - Exam Review of Systems Constitutional: Reports chronic pain, Reports malaise, Reports weakness, Denies anorexia Eyes: denies blurred vision, denies bulging eye, denies decreased vision Ears, nose, mouth and throat: Denies dysphagia, Denies neck lump, Denies sore throat Cardiovascular: Denies chest pain, Denies decreased exercise tolerance, Denies dyspnea on exertion, Denies lightheadedness, Denies orthopnea, Denies shortness of breath, Denies syncope Respiratory: Denies congestion, Denies cough with sputum, Denies home oxygen, Denies sleep apnea, Denies snoring, Denies wheezing Gastrointestinal: Reports abdominal pain, Denies BRBPR, Denies change in bowel habits, Denies dyspepsia, Denies heartburn, Denies melena, Denies nausea, Denies vomiting Genitourinary: Denies dysuria, Denies nocturia Musculoskeletal: Denies gait dysfunction, Denies low back pain Musculoskeletal: Reports right shoulder pain Integumentary: Reports color changes Neurological: Reports weakness, Denies migraines, Denies seizures, Denies tremors, Denies vertigo Psychiatric: Reports anxiety, Reports depression, Denies sadness/tearfulness, Denies sleep disturbances, Denies suicidal ideation Endocrine: Denies fatigue, Denies weight change Physical examination HEENT: head is atraumatic normocephalic pupils were equal round reactive to light and accommodations extra ocular muscle movements were intact. Neck: supple , no JVP, no carotid bruits. Chest: decrease breath sounds at the bases with few ronchi , there is no expiratory wheezes or intercostal retractions. Heart: first heart sound is depressed second heart sound is normal there is no gallop or murmur. Abdomen: soft , mild non specific tenderness, there is no rebound or guarding positive bowel sounds. Extremities: there is increased edema and mild erythema likely stasis in the left lower extremity, there is no calf tenderness, DP + 2 bilaterally. Mild erythema to the right lower extremity pretibial area. Neurologic examination: patient is awake alert and oriented X 3 CN II-XII are grossly intact, muscle power 4/5 in bilateral upper and lower extremities, DTR were normal, Babinski's are flexor bilaterally. - Labs CBC & Chem 7: 10/22/19 06:42 10/22/19 06:42 Labs: Abnormal Lab Results - Last 24 Hours (Table) 10/22/19 10/22/19 Range/Units 06:42 06:42 RBC 2.44 L (3.80-5.40) m/uL Hgb 7.4 L (11.4-16.0) gm/dL Hct 23.8 L (34.0-46.0) % Lymphocytes # 0.7 L (1.0-4.8) k/uL Sodium 136 L (137-145) mmol/L Chloride 112 H (98-107) mmol/L Carbon Dioxide 17 L (22-30) mmol/L Creatinine 1.24 H (0.52-1.04) mg/dL Calcium 7.0 L (8.4-10.2) mg/dL AST 13 L (14-36) U/L Total Protein 4.8 L (6.3-8.2) g/dL Albumin 2.5 L (3.5-5.0) g/dL Microbiology - Last 24 Hours (Table) 10/20/19 16:56 Blood Culture - Preliminary Blood No Growth after 24 hours Assessment and Plan Plan: 1. Left lower leg cellulitis. Continue IV antibiotic in the form of Levaquin and Kefzol. Consult with Dr. Bi garcia. 2. Left lower lobe atelectasis doubt pneumonia. Continue IV antibiotic for now monitor the patient in the next 24 hours. 3. Mild metabolic encephalopathy. likely related to medications with some impact from pneumonia. better. 4. 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 we will continue with Folic acid 1 mg orally daily and she has been receiving Erythropoitein through her [employer]. Recheck in the morning 5. Acute kidney injury and chronic kidney disease stage 3. Continue with Sodium bicrab 650 mg orally bid. 6. History of Lupus anticoagulant. stable. 7. Chronic pancreatitis with chronic pain syndrome. we will continue with Bentyl . 8. Chronic pain syndrome. we will continue with Gabapentin 300 mg orlally tid and Tramadol 50 mg po q 6 hours as needed. 9. GERD. we will continue with Pepcid 20 mg orally daily. 10. Depression. we will continue with Cymbalta 60 mg orally daily. 11. Anxiety. we will continue with Xanax as needed, aware of the side effects of the treatment and the potential of habitual use. 12. Insomnia. we will continue Trazodone 100 mg po at bedtime. 13. Vitamin D deficiency. we will continue with vitamin D supplement. 14. History of Multiple sclerosis. we will continue with Tizanidine 2 mg orally at bedtime. 15. DVT prophylaxis. we will continue with Heparin 5000 units SC Q 12 H. 16. GI prophylaxis. we will continue with Pepcid. Full code. Discharge plan: Return home. Impression and plan of care have been directed as dictated by the signing physician. Annalisa Delcid nurse practitioner acting as scribe for signing christian hilario
--- NOTE | 2019-10-22 14:25 | P.CNOR ---
History of Present Illness - [facility] Consult date: 10/22/19 Consult reason: joint pain History of present illness: Patient is a 64 year old female seen at bedside in consulation for right shoulder pain. She was recently admitted for cellulitis of both lower extremit ies. She presented to our office and saw Dr. Darryl Andersen on 10/16/19 for evaluation and treatment of her right shoulder and right elbow. She states that on 09/11/2019, her wheelchair flipper over on top of her. She was pinned underneath for approximately 30 minutes prior to receiving help. She then fell on 10/13/2019, landing on the right side of her body. She declined an injection at that time and was unable to obtain an MRI due to the current COVID status. She tried to do some PT but continues to have right shoulder pain with range of motion. She is currently denying numbness, tingling, fever or chills. Review of Systems All systems: negative Constitutional: Denies chills, Denies fever Eyes: denies blurred vision, denies pain Ears, nose, mouth and throat: Denies headache, Denies sore throat Cardiovascular: Denies chest pain, Denies shortness of breath Respiratory: Denies cough Gastrointestinal: Denies abdominal pain, Denies diarrhea, Denies nausea, Denies vomiting Genitourinary: Denies dysuria, Denies hematuria Musculoskeletal: Denies myalgias Integumentary: Denies pruritus, Denies rash Neurological: Denies numbness, Denies weakness Psychiatric: Denies anxiety, Denies depression Endocrine: Denies fatigue, Denies weight change Past Medical History Past Medical History: Cancer, COPD, CVA/TIA, Fibromyalgia Additional Past Medical History / Comment(s): Lupus, TIA, right hand tendons severed, closed head injury, multiple sclerosis History of Any Multi-Drug Resistant Organisms: C-DIFF Year Discovered:: 2014 MDRO Source:: patient Past Surgical History: Appendectomy, Back Surgery, Section, Orthopedic Surgery Additional Past Surgical History / Comment(s): stomach cancer Past Anesthesia/Blood Transfusion Reactions: No Reported Reaction Past Psychological History: Anxiety, Bipolar, Depression, PTSD Smoking Status: Current some day smoker Past Alcohol Use History: None Reported Additional Past Alcohol Use History / Comment(s): Patient is a smoker of 2-3 packs per day since she was 12 years of age and has recently cut back to 4 cigarettes per day. She denies any alcohol use. Past Drug Use History: None Reported - Past Family History Father Additional Family Medical History / Comment(s): Father has history of diabetes and stomach problems. Mother Additional Family Medical History / Comment(s): Mother has history of diabetes, coronary artery disease and COPD. Sister(s) Additional Family Medical History / Comment(s): Patient has sisters all have female problems. She does state there is breast cancer history in her aunt. Son(s) Additional Family Medical History / Comment(s): Patient has one son with no major medical problems. Medications and Allergies Home Medications Medication Instructions Recorded Confirmed Type Gabapentin [Neurontin] 300 mg PO TID 04/14/15 10/20/19 History DULoxetine HCL [Cymbalta] 60 mg PO DAILY 05/24/17 10/20/19 History Ergocalciferol [Vitamin D2 50,000 unit PO MO 05/24/17 10/20/19 History (DRISDOL)] Folic Acid 1 mg PO DAILY 05/24/17 10/20/19 History Magnesium Oxide [Mag-Ox] 400 mg PO BID 05/24/17 10/20/19 History traZODone HCL 150 mg PO HS 02/27/18 10/20/19 History Dicyclomine [Bentyl] 20 mg PO BID 07/10/18 10/20/19 History Potassium Chloride ER [K-Dur 20] 20 meq PO BID 11/05/18 10/21/19 History Famotidine [Pepcid] 20 mg PO DAILY #30 tab 11/08/18 10/20/19 Rx ALPRAZolam [Xanax] 0.5 mg PO BID 10/20/19 10/20/19 History Albuterol Sulfate [Proair Hfa] 2 puff INHALATION RT-Q4H PRN 10/20/19 10/20/19 History Sodium Bicarbonate Tab 650 mg PO BID 10/20/19 10/20/19 History tiZANidine [Zanaflex] 2 mg PO HS PRN 10/20/19 10/20/19 History traMADol HCL 50 mg PO Q6H PRN 10/20/19 10/20/19 History Allergies Allergy/AdvReac Type Severity Reaction Status Date / Time alcohol Allergy Unknown Verified 10/20/19 18:40 aspirin Allergy Unknown Verified 10/20/19 18:40 divalproex sodium Allergy Unknown Verified 10/20/19 18:40 [From Depakote] erythromycin base Allergy Unknown Verified 10/20/19 18:40 ketorolac [From Toradol] Allergy Unknown Verified 10/20/19 18:40 Penicillins Allergy Unknown Verified 10/20/19 18:40 shellfish derived [Shellfish] Allergy Unknown Verified 10/20/19 18:40 strawberry Allergy Unknown Verified 10/20/19 18:40 Sulfa (Sulfonamide Allergy Unknown Verified 10/20/19 18:40 Antibiotics) Physical Examination Inspection of right shoulder shows no deformity, erythema or wounds. There is mi nimal tenderness to palpation and is not hot. She has pain with minimal active and passive ROM in all [place]. Motor and sensation is grossly intact throughout the right upper extremity. 2+ radial pulse present. Good capillary refill Results Xrays of right shoulder from 10/14/19 show no fracture or lesions. There is mild DJD - Labs Labs: Abnormal Lab Results - Last 24 Hours (Table) 10/22/19 10/22/19 Range/Units 06:42 06:42 RBC 2.44 L (3.80-5.40) m/uL Hgb 7.4 L (11.4-16.0) gm/dL Hct 23.8 L (34.0-46.0) % Lymphocytes # 0.7 L (1.0-4.8) k/uL Sodium 136 L (137-145) mmol/L Chloride 112 H (98-107) mmol/L Carbon Dioxide 17 L (22-30) mmol/L Creatinine 1.24 H (0.52-1.04) mg/dL Calcium 7.0 L (8.4-10.2) mg/dL AST 13 L (14-36) U/L Total Protein 4.8 L (6.3-8.2) g/dL Albumin 2.5 L (3.5-5.0) g/dL Microbiology - Last 24 Hours (Table) 10/20/19 16:56 Blood Culture - Preliminary Blood No Growth after 24 hours H & H 10/20/19 10/22/19 Range/Units 16:56 06:42 Hgb 8.4 L 7.4 L (11.4-16.0) gm/dL Hct 27.5 L 23.8 L (34.0-46.0) % Coagulation 10/20/19 Range/Units 16:56 INR 1.0 (<1.2) Result Diagrams: 10/22/19 06:42 10/22/19 06:42 - Diagnostic results Shoulder x-ray: report reviewed, image reviewed Assessment and Plan (1) Right shoulder pain Narrative/Plan: There are no plans for immediate surgical intervention. She likely has a frozen shoulder and may benefit from PT. She may also benefit from NSAIDs or oral corticosteroids and would defer to primary team. Would hold on injection for now given her current status of cellulitis and risk of causing a septic shoulder joint. Will continue to follow and make further recommendations as appropraite. Current Visit: No Status: Acute Priority: Medium Code(s): M25.511 - PAIN IN RIGHT SHOULDER SNOMED Code(s): 65340833 Time with Patient: Less than 30
[2019-10-22] MEDS: traZODone HCL 50 MG TAB PO SCH (21:46)
--- NOTE | 2019-10-22 23:43 | PN ---
PROGRESS NOTE DATE OF SERVICE: 10/22/2019 REASON FOR FOLLOWUP: Left lower extremity cellulitis. INTERVAL HISTORY: The patient is currently afebrile. Patient is breathing comfortably. Denies having any chest pain or cough. Left leg pain, swelling and redness has slightly decreased. No nausea, no vomiting. No diarrhea. PHYSICAL EXAMINATION: Blood pressure 105/63 with a pulse of 61, temperature 98.1. She is 98% on room air. General description is an elderly female lying in bed in no distress. RESPIRATORY SYSTEM: Unlabored breathing. Decreased intense breath sounds. No wheeze. HEART: S1, S2. Regular rate and rhythm. ABDOMEN: Soft. No tenderness. Left leg swelling has slightly decreased. LABS: Hemoglobin 7.4, white count 4.0, BUN of 14, creatinine 1.24. Blood culture has been negative. DIAGNOSTIC IMPRESSION AND PLAN: Patient with acute left lower extremity cellulitis with diffuse swelling and redness likely streptococcal disease. The patient seemed to be clinically responding to the cefazolin. White count has normalized as well. Blood culture negative. To continue to finish therapy with oral Keflex. Monitor clinical course closely. MMODL / IJN: [id number] /
[2019-10-23] MEDS: MORPHINE SULFATE 2 MG/ML SYRINGE IVP PRN ×5 (00:26→19:23)
[2019-10-23 08:03] LABS: Potassium 4.1 mmol/L (3.5-5.1)
[2019-10-23 08:16] LABS: HGB 8.1 gm/dL (11.4-16.0); Hypochromasia Marked; MCH 29.5 pg (25.0-35.0); MCHC 28.9 g/dL (31.0-37.0); Macrocytosis Slight; Mean Platelet Volume 7.3; Platelet Count 223 k/uL (150-450); RBC 2.75 m/uL (3.80-5.40); RDW 15.3 % (11.5-15.5); WBC 3.3 k/uL (3.8-10.6)
[2019-10-23] MEDS: LEVOFLOXACIN 250MG-D5W PMX 250 MG in DEXTROSE/WATER 1 50ML.BAG IVPB SCH (08:53)
[2019-10-23] MEDS: MAGNESIUM OXIDE 400 MG TAB PO SCH ×2 (08:55→21:40)
[2019-10-23] MEDS: SODIUM BICARBONATE TAB 650 MG TAB PO SCH ×2 (08:55→21:40)
[2019-10-23] MEDS: HEPARIN SODIUM,PORCINE 5,000 UNIT/ML 1 ML VIAL SQ SCH ×2 (08:55→21:39)
[2019-10-23] MEDS: ALPRAZolam 0.5 MG TAB PO SCH ×2 (08:55→21:40)
[2019-10-23] MEDS: DICYCLOMINE 20 MG TAB PO SCH ×2 (08:55→21:40)
[2019-10-23] MEDS: POTASSIUM CHLORIDE ER 20 MEQ TAB.ER PO SCH ×2 (08:55→21:40)
[2019-10-23] MEDS: FAMOTIDINE 20 MG TAB PO SCH (08:55)
[2019-10-23] MEDS: FOLIC ACID 1 MG TAB PO SCH (08:55)
[2019-10-23] MEDS: DULoxetine HCL 60 MG CAPSULE.DR PO SCH (08:55)
[2019-10-23] MEDS: GABAPENTIN 300 MG CAP PO SCH ×3 (08:55→21:40)
--- NOTE | 2019-10-23 12:50 | P.PN ---
Subjective Progress Note Date: 10/23/19 This is a 64-year-old female patient of mine with history of TIA, chronic pain, lupus anticoagulant, multiple sclerosis, fibromyalgia, chronic kidney disease stage III, anemia of chronic disease, generalized anxiety disorder and recurrent depression, vitamin D deficiency, gastroesophageal reflux disease. 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 and has been receiving treatment, chronic pancreatitis with chronic pain syndromes was on large dose of dilaudid for a long time till I weaned her off and currently has been using tramadol for pain control presented to the Emergency department at [facility] because of increased pain and swelling in the left leg associated with mental status changes , she underwent CAT scan of the brain that was negative for acute abnormality , CXR suggestive of left lower lobe atelectasis Vs Pneumonia and also underwent venous doppler of the left lower extremity that was negative for DVT, but here was increased edema and swe lling in both lower extremity most of the left lower extremity than the right lower extremity, there is also what appears to be erythema nodosum on the front of the sullivan, patient was started on IV antibiotic in the form of Levaquin we will add ceftriaxone 1 g IV piggyback every 24 hours, infectious disease consultation will be obtained. 10/21: Patient has been seen by Dr. Pat with recommendations for Kefzol and Levaquin. We have added local wound care with Silvadene dressing. Patient continues to complain of significant pain to the right shoulder and consult will be placed with Dr. Andersen for possible steroid injection. She is complaining of nausea and vomiting that started last evening. Zofran on. Morphine added for pain and to receive Zofran prior to dosing. Midline was placed yesterday. Patient's been afebrile, heart rate 61, blood pressure 116/71, pulse ox 97% on room air. Repeat blood work revealed WBC 4, hemoglobin dropped to 7.4, platelet count 174, sodium 136, potassium 3.7, chloride 112, CO2 17, BUN 14 creatinine 1.24. 10/22: Dr. Pat has recommended oral Keflex for discharge. Patient has been evaluated by orthopedics with no plan for injecting the right shoulder. Recommendations for nonsteroidals or steroids. Pain has been improved with IV morphine. PT was added and patient is agreeable to have home care. manager clinical research has been updated and will order home care with physical therapy at home. Decreased redness to the lower extremities. Patient has been afebrile, heart rate 70, blood pressure 130/73, pulse ox 96% on room air. Anticipate discharge home tomorrow. Objective - Vital Signs Vital signs: Vital Signs Temp 98.0 F 10/23/19 07:00 Pulse 70 10/23/19 07:00 Resp 16 10/23/19 07:00 BP 138/73 10/23/19 07:00 Pulse Ox 96 10/23/19 07:00 Intake & Output 10/22/19 10/23/19 10/23/19 18:59 06:59 18:59 Intake Total 550 Balance 550 Intake: Intake, IV Titration 100 Amount Levofloxacin 250Mg-D5w 50 Pmx 250 mg In Dextrose/ Water 1 50ml.bag @ 50 mls /hr IVPB Q24H [facility] Rx#: [id number] ceFAZolin 2 gm In Sodium 50 Chloride 0.9% 50 ml @ 100 mls/hr IVPB Q8HR [facility] Rx# :[id number] Oral 450 Other: Voiding Method Toilet # Voids 3 1 - Exam Review of Systems Constitutional: Reports chronic pain, Reports malaise, Reports weakness, Denies anorexia Eyes: denies blurred vision, denies bulging eye, denies decreased vision Ears, nose, mouth and throat: Denies dysphagia, Denies neck lump, Denies sore throat Cardiovascular: Denies chest pain, Denies decreased exercise tolerance, Denies dyspnea on exertion, Denies lightheadedness, Denies orthopnea, Denies shortness of breath, Denies syncope Respiratory: Denies congestion, Denies cough with sputum, Denies home oxygen, Denies sleep apnea, Denies snoring, Denies wheezing Gastrointestinal: Reports abdominal pain, Denies BRBPR, Denies change in bowel habits, Denies dyspepsia, Denies heartburn, Denies melena, Denies nausea, Denies vomiting Genitourinary: Denies dysuria, Denies nocturia Musculoskeletal: Denies gait dysfunction, Denies low back pain Musculoskeletal: Reports right shoulder pain Integumentary: Reports color changes Neurological: Reports weakness, Denies migraines, Denies seizures, Denies tremors, Denies vertigo Psychiatric: Reports anxiety, Reports depression, Denies sadness/tearfulness, Denies sleep disturbances, Denies suicidal ideation Endocrine: Denies fatigue, Denies weight change Physical examination HEENT: head is atraumatic normocephalic pupils were equal round reactive to light and accommodations extra ocular muscle movements were intact. Neck: supple , no JVP, no carotid bruits. Chest: decrease breath sounds at the bases with few ronchi , there is no expirat ory wheezes or intercostal retractions. Heart: first heart sound is depressed second heart sound is normal there is no gallop or murmur. Abdomen: soft , mild non specific tenderness, there is no rebound or guarding positive bowel sounds. Extremities: there is increased edema and mild erythema likely stasis in the left lower extremity, there is no calf tenderness, DP + 2 bilaterally. Mild erythema to the right lower extremity pretibial area. Neurologic examination: patient is awake alert and oriented X 3 CN II-XII are grossly intact, muscle power 4/5 in bilateral upper and lower extremities, DTR were normal, Babinski's are flexor bilaterally. - Labs CBC & Chem 7: 10/23/19 07:27 10/23/19 07:27 Labs: Abnormal Lab Results - Last 24 Hours (Table) 10/23/19 10/23/19 Range/Units 07:27 07:27 WBC 3.3 L (3.8-10.6) k/uL RBC 2.75 L (3.80-5.40) m/uL Hgb 8.1 L (11.4-16.0) gm/dL Hct 28.0 L (34.0-46.0) % MCV 102.0 H (80.0-100.0) fL MCHC 28.9 L (31.0-37.0) g/dL Chloride 115 H (98-107) mmol/L Carbon Dioxide 17 L (22-30) mmol/L Calcium 7.0 L (8.4-10.2) mg/dL Microbiology - Last 24 Hours (Table) 10/20/19 16:56 Blood Culture - Preliminary Blood No Growth after 48 hours Assessment and Plan Plan: 1. Left lower leg cellulitis. Continue IV antibiotic in the form of Levaquin and Kefzol. Transition to oral Keflex for home. Consult with Dr. Bi garcia. 2. Left lower lobe atelectasis doubt pneumonia. Continue IV antibiotic for now monitor the patient in the next 24 hours. 3. Mild metabolic encephalopathy. likely related to medications with some impact from pneumonia. better. 4. 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 we will continue with Folic acid 1 mg orally daily and she has been receiving Erythropoitein through her [employer]. Recheck in the morning 5. Acute kidney injury and chronic kidney disease stage 3. Continue with Sodium bicrab 650 mg orally bid. 6. History of Lupus anticoagulant. stable. 7. Chronic pancreatitis with chronic pain syndrome. we will continue with Bentyl . 8. Chronic pain syndrome. we will continue with Gabapentin 300 mg orlally tid and Tramadol 50 mg po q 6 hours as needed. 9. GERD. we will continue with Pepcid 20 mg orally daily. 10. Recurrent depression. we will continue with Cymbalta 60 mg orally daily. 11. Generalized anxiety disorder. Continue with Xanax as needed, aware of the side effects of the treatment and the potential of habitual use. 12. Insomnia. we will continue Trazodone 100 mg po at bedtime. 13. Vitamin D deficiency. we will continue with vitamin D supplement. 14. History of Multiple sclerosis. we will continue with Tizanidine 2 mg orally at bedtime. 15. Right shoulder pain area and patient has been following with Dr. Andersen in the outpatient setting. Consult with orthopedics appreciated. IV morphine in place. 16. DVT prophylaxis. we will continue with Heparin 5000 units SC Q 12 H. 17. GI prophylaxis. we will continue with Pepcid. 18. COVID-19 Infection not present. Full code. Discharge plan: Return home with [facility]. Impression and plan of care have been directed as dictated by the signing physician. Annalisa Delcid nurse practitioner acting as scribe for signing physician.
[2019-10-23 19:18] VITALS: RESP 16
[2019-10-23] MEDS ORDERED: LOPERAMIDE 2 MG CAP PO PRN (21:37)
[2019-10-23] MEDS: traZODone HCL 50 MG TAB PO SCH (21:40)
[2019-10-24] MEDS: MORPHINE SULFATE 2 MG/ML SYRINGE IVP PRN ×2 (00:19→07:33)
--- NOTE | 2019-10-24 02:24 | PN ---
PROGRESS NOTE DATE OF SERVICE: 10/23/2019 REASON FOR FOLLOWUP: Left lower extremity cellulitis. INTERVAL HISTORY: The patient is currently afebrile. The patient is breathing comfortably. The patient denies having any chest pain or shortness of breath or cough. No nausea or abdominal pain. No pain to the left lower extremity. PHYSICAL EXAMINATION: Blood pressure 152/72 with a pulse of 77, temperature 98.7, he is 100% on room air. General description is an elderly female lying in bed in no distress. Respiratory system: Unlabored breathing, clear to auscultation anteriorly. Heart S1, S2. Regular rate and rhythm. Abdomen soft. No tenderness. Left leg is currently wrapped up. No obvious drainage on the dressing. LABS: Hemoglobin 8.8, white count 3.23, BUN of 9, creatinine 0.97. Blood culture has been negative. DIAGNOSTIC IMPRESSION AND PLAN: Patient with left lower extremity cellulitis with diffuse swelling with concern likely for a streptococcal disease. The patient clinically responded to cefazolin to continue with the plan to finish therapy with oral Keflex. Monitor clinical course closely. MMODL / IJN: [id number] /
[2019-10-24 02:54] VITALS: PULSE 70
[2019-10-24] MEDS: DULoxetine HCL 60 MG CAPSULE.DR PO SCH (07:32)
[2019-10-24] MEDS: ALPRAZolam 0.5 MG TAB PO SCH (07:32)
[2019-10-24] MEDS: MAGNESIUM OXIDE 400 MG TAB PO SCH (07:32)
[2019-10-24] MEDS: DICYCLOMINE 20 MG TAB PO SCH (07:32)
[2019-10-24] MEDS: POTASSIUM CHLORIDE ER 20 MEQ TAB.ER PO SCH (07:32)
[2019-10-24] MEDS: SODIUM BICARBONATE TAB 650 MG TAB PO SCH (07:32)
[2019-10-24] MEDS: GABAPENTIN 300 MG CAP PO SCH (07:32)
[2019-10-24] MEDS: HEPARIN SODIUM,PORCINE 5,000 UNIT/ML 1 ML VIAL SQ SCH (07:32)
[2019-10-24] MEDS: FAMOTIDINE 20 MG TAB PO SCH (07:32)
[2019-10-24] MEDS: FOLIC ACID 1 MG TAB PO SCH (07:32)
[2019-10-24 07:35] VITALS: BP 147/73; TEMP 98.1
[2019-10-24] MEDS ORDERED: LEVOFLOXACIN 250 MG TAB PO SCH (09:00)
--- NOTE | 2019-10-24 10:36 | P.DS ---
Providers Date of admission: 10/20/19 18:59 Expected date of discharge: 10/24/19 Attending physician: Meseret Haq Consults: 10/21/19 11:29 Consult Physician Routine Consulting Provider: Keri Pat Consult Reason/Comments: cellulitis Do you want consulting provider notified?: Yes 10/22/19 09:56 Consult Physician Routine Consulting Provider: Darryl Andersen Consult Reason/Comments: Rt shoulder injection Do you want consulting provider notified?: Yes Primary care physician: Meseret Haq [facility] Course: This is a 64-year-old female patient of mine with history of TIA, chronic pain, lupus anticoagulant, multiple sclerosis, fibromyalgia, chronic kidney disease stage III, anemia of chronic disease, generalized anxiety disorder and recurrent depression, vitamin D deficiency, gastroesophageal reflux disease. 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 and has been receiving treatment, chronic pancreatitis with chronic pain syndromes was on large dose of dilaudid for a long time till I weaned her off and currently has been using tramadol for pain control presented to the Emergency department at [facility] because of increased pain and swelling in the left leg associated with mental status changes , she underwent CAT scan of the brain that was negative for acute abnormality , CXR suggestive of left lower lobe atelectasis Vs Pneumonia and also underwent venous doppler of the left lower extremity that was negative for DVT, but here was increased edema and swelling in both lower extremity most of the left lower extremity than the right lower extremity, there is also what appears to be erythema nodosum on the front of the sullivan, patient was started on IV antibiotic in the form of Levaquin we will add ceftriaxone 1 g IV piggyback every 24 hours, infectious disease consultation will be obtained. 10/21: Patient has been seen by Dr. Pat with recommendations for Kefzol and Levaquin. We have added local wound care with Silvadene dressing. Patient continues to complain of significant pain to the right shoulder and consult will be placed with Dr. Andersen for possible steroid injection. She is complaining of nausea and vomiting that started last evening. Zofran on. Morphine added for pain and to receive Zofran prior to dosing. Midline was placed yesterday. Patient's been afebrile, heart rate 61, blood pressure 116/71, pulse ox 97% on room air. Repeat blood work revealed WBC 4, hemoglobin dropped to 7.4, platelet count 174, sodium 136, potassium 3.7, chloride 112, CO2 17, BUN 14 creatinine 1.24. 10/22: Dr. Pat has recommended oral Keflex for discharge. Patient has been evaluated by orthopedics with no plan for injecting the right shoulder. Recommendations for nonsteroidals or steroids. Pain has been improved with IV morphine. PT was added and patient is agreeable to have home care. global account manager has been updated and will order home care with physical therapy at home. Decreased redness to the lower extremities. Patient has been afebrile, heart rate 70, blood pressure 130/73, pulse ox 96% on room air. Anticipate discharge home tomorrow. 10/23: Patient is seen today in follow-up. Pain is much improved to the right shoulder with morphine and patient has tramadol at home to take for pain. Cellulitis to the lower extremity much improved. Patient has been afebrile, heart rate 70, blood pressure 147/73 and pulse ox 96% on room air. Dr. Pat is recommended oral Keflex for home. Patient will be discharged home today in stable condition. Discharge diagnoses: 1. Left lower leg cellulitis. 2. Left lower lobe atelectasis doubt pneumonia. 3. Mild metabolic encephalopathy. likely related to medications 4. 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 5. Acute kidney injury and chronic kidney disease stage 3. 6. History of Lupus anticoagulant. stable. 7. Chronic pancreatitis with chronic pain syndrome. 8. Chronic pain syndrome. 9. GERD. 10. Recurrent depression. 11. Generalized anxiety disorder. 12. Insomnia. 13. Vitamin D deficiency. 14. History of Multiple sclerosis. 15. Right shoulder pain secondary to frozen shoulder. 16. COVID-19 Infection not present. Discharge plan: home with [facility]. Impression and plan of care have been directed as dictated by the signing physician. Annalisa Delcid nurse practitioner acting as scribe for signing physician. Patient Condition at Discharge: Good Plan - Discharge Summary Discharge Rx Participant: No New Discharge Prescriptions: New Cephalexin [Keflex] 500 mg PO Q8HR 10 Days #30 cap SILVER sulfADIAZINE CREAM [Silvadene Cream] 1 applic TOPICAL DAILY #400 gm Continue Gabapentin [Neurontin] 300 mg PO TID Magnesium Oxide [Mag-Ox] 400 mg PO BID Folic Acid 1 mg PO DAILY Ergocalciferol [Vitamin D2 (DRISDOL)] 50,000 unit PO MO DULoxetine HCL [Cymbalta] 60 mg PO DAILY traZODone HCL 150 mg PO HS Dicyclomine [Bentyl] 20 mg PO BID Potassium Chloride ER [K-Dur 20] 20 meq PO BID Famotidine [Pepcid] 20 mg PO DAILY #30 tab traMADol HCL 50 mg PO Q6H PRN PRN Reason: Pain tiZANidine [Zanaflex] 2 mg PO HS PRN PRN Reason: Muscle Spasm Sodium Bicarbonate Tab 650 mg PO BID Albuterol Sulfate [Proair Hfa] 2 puff INHALATION RT-Q4H PRN PRN Reason: Shortness Of Breath ALPRAZolam [Xanax] 0.5 mg PO BID Discharge Medication List Gabapentin [Neurontin] 300 mg PO TID 04/14/15 [History] DULoxetine HCL [Cymbalta] 60 mg PO DAILY 05/24/17 [History] Ergocalciferol [Vitamin D2 (DRISDOL)] 50,000 unit PO MO 05/24/17 [History] Folic Acid 1 mg PO DAILY 05/24/17 [History] Magnesium Oxide [Mag-Ox] 400 mg PO BID 05/24/17 [History] traZODone HCL 150 mg PO HS 02/27/18 [History] Dicyclomine [Bentyl] 20 mg PO BID 07/10/18 [History] Potassium Chloride ER [K-Dur 20] 20 meq PO BID 11/05/18 [History] Famotidine [Pepcid] 20 mg PO DAILY #30 tab 11/08/18 [Rx] ALPRAZolam [Xanax] 0.5 mg PO BID 10/20/19 [History] Albuterol Sulfate [Proair Hfa] 2 puff INHALATION RT-Q4H PRN 10/20/19 [History] Sodium Bicarbonate Tab 650 mg PO BID 10/20/19 [History] tiZANidine [Zanaflex] 2 mg PO HS PRN 10/20/19 [History] traMADol HCL 50 mg PO Q6H PRN 10/20/19 [History] Cephalexin [Keflex] 500 mg PO Q8HR 10 Days #30 cap 10/24/19 [Rx] SILVER sulfADIAZINE CREAM [Silvadene Cream] 1 applic TOPICAL DAILY #400 gm 10/24/19 [Rx] Follow up Appointment(s)/Referral(s): Meseret Haq MD [Primary Care Provider] - 1 Week (office not open. Please call to make appointment) [facility], [REFERRING] - Darryl Andersen DO [Doctor of Osteopathic Medicine] - 1 Week (office not ansering Please call to make appointment) Discharge Disposition: HOME WITH HOME HEALTH SERVICES
--- NOTE | 2019-10-24 12:12 | P.PN ---
Subjective Progress Note Date: 10/24/19 Patient is examined bedside this morning in regards to her right shoulder. The patient states her shoulder pain is unchanged. She denies pain at rest, there is increased pain with active range of motion of the shoulder. There are no new complaints today. Vital signs stable. Objective - Vital Signs Vital signs: Vital Signs Temp 98.1 F 10/24/19 07:00 Pulse 70 10/24/19 07:00 Resp 16 10/24/19 07:00 BP 147/73 10/24/19 07:00 Pulse Ox 96 10/24/19 07:00 Intake & Output 10/23/19 10/24/19 10/24/19 18:59 06:59 18:59 Other: Voiding Method Toilet # Voids 2 1 # Bowel Movements 2 - Exam On examination, the patient is sitting up in bed in no apparent distress. She is alert and noted 3. On inspection of the right shoulder, there is no erythema, obvious deformities, skin discoloration, open wounds. There is minimal pain with palpation of the shoulder. No warmth. There is mild pain with PROM of the shoulder when >90 degrees of abduction and forward flexion is achieved. Patient is able to achieve 90 degrees of active forward flexion and abduction. T he right upper extremity is warm and well-perfused with brisk capillary refill distally. Motor and sensory function appear to be intact in the right upper extremity. - Labs CBC & Chem 7: 10/23/19 07:27 10/23/19 07:27 Labs: Microbiology - Last 24 Hours (Table) 10/20/19 16:56 Blood Culture - Preliminary Blood No Growth after 72 hours Assessment and Plan Assessment: Right shoulder pain Possible rotator cuff tear/tendinitis Plan: - Clinical findings with the patient. The patient was also discussed with Dr. Darryl Andersen. We do not recommend a cortisone injection into the right shoulder at this time due to her ongoing bilateral lower extremity cellulitis. - Recommended continuing with symptomatic care including Gentle range of motion, physical therapy, possible NSAIDs/corticosteroids, will defer to admitting team. - She may follow-up in the office with Dr. Darryl Andersen following discharge if she would like to receive a cortisone injection on an outpatient basis. We will sign off the patient for now.
--- NOTE | 2019-10-24 12:27 | P.PN ---
Progress Note - Text Progress Note Date: 10/23/19 Wed 9am, 10/22/19 ORTHO Hx: This is routine ortho rounds for her painful right shoulder. She is admitted for cellulitis of her left leg with IV antibiotics and wound care. She injured her right shoulder several weeks ago when she accidently ran her electric wheelchair into the wall at home and toppled over, stuck for 30" until someone heard her call for help. She saw Dr. Darryl Andersen in office ~2 weeks ago for this right shoulder problem. X-rays were negative. Diagnosis is probable rotator cuff tear. She declined a cortisone injection at that time bur request one now for the pain. PE: Exam performed with full COVID PPE precautions. She is alert, oriented, no acute distress. Inspection of her shoulder demonstrates no obvious deformity. Her active elevation above level of her shoulder is very poor, and painful. However, she is able to use her right arm below the elbow fine to assist with ADL's. NV status intact. IMP: Probable extensive rotator cuff tear right shoulder. PLAN: I am reluctant to proceed with a cortisone injection of her right shoulder at this time with all other formerly [facility] medical concerns. I will contact Dr. Darryl Andersen for further advice on benefit/risks of injection at bedside and we will discuss this with her tomorrow on rounds. Otherwise, wait until discharge and recheck in office for outpatient treatment. Danial Andersen D.O.
--- NOTE | 2019-10-24 15:24 | PN ---
PROGRESS NOTE DATE OF SERVICE: 10/24/2019 REASON FOR FOLLOWUP: Left lower extremity cellulitis. INTERVAL HISTORY: The patient is currently afebrile. The patient is breathing comfortably. Denies having any chest pain or shortness of breath or cough. No nausea. No vomiting. No abdominal pain. Overall pain, swelling and redness of the left leg have improved. PHYSICAL EXAMINATION: Blood pressure 147/73 with a pulse of 90, temperature 98.1. She is 96% on room air. General description is an elderly female lying in bed in no distress. RESPIRATORY SYSTEM: Unlabored breathing. Clear to auscultation anteriorly. HEART: S1, S2. Regular rate and rhythm. ABDOMEN: Soft. No tenderness. Left leg swelling and redness have improved. LABS: Hemoglobin 8.1, white count 3.3, BUN of 9, creatinine 0.97. DIAGNOSTIC IMPRESSION AND PLAN: Patient with acute left lower extremity cellulitis in this patient who shows overall clinical improvement on cefazolin. Finish therapy with oral Keflex and monitor her clinical course closely. MMODL / IJN: [id number] /
== END 2019-10-24 13:46 | disposition home health service (06) | DRG 602 ==
LOC: EC 16:26 → 4SSUR 18:59
PROVIDERS: ADMIT Internal Medicine; ATTEND Internal Medicine
PROC: 05HA33Z Insertion of Infusion Device into Left Brachial Vein, Percutaneous Approach (ICD-10-PCS; principal; 2019-10-21 09:20)
DX: L03.116 Cellulitis of left lower limb (principal); G93.41 Metabolic encephalopathy; J18.9 Pneumonia, unspecified organism; D68.62 Lupus anticoagulant syndrome; J44.0 Chronic obstructive pulmonary disease with (acute) lower respiratory infection; K86.1 Other chronic pancreatitis; N17.9 Acute kidney failure, unspecified; J98.11 Atelectasis; K21.9 Gastro-esophageal reflux disease without esophagitis; F17.200 Nicotine dependence, unspecified, uncomplicated; F41.1 Generalized anxiety disorder; F31.9 Bipolar disorder, unspecified; F43.10 Post-traumatic stress disorder, unspecified; D63.8 Anemia in other chronic diseases classified elsewhere; E55.9 Vitamin D deficiency, unspecified; G35 Multiple sclerosis; G47.00 Insomnia, unspecified; G89.4 Chronic pain syndrome; Z20.828 Contact with and (suspected) exposure to other viral communicable diseases; T50.905A Adverse effect of unspecified drugs, medicaments and biological substances, initial encounter; M79.7 Fibromyalgia; B95.5 Unspecified streptococcus as the cause of diseases classified elsewhere; N18.3 Chronic kidney disease, stage 3 (moderate); M75.101 Unspecified rotator cuff tear or rupture of right shoulder, not specified as traumatic; M75.01 Adhesive capsulitis of right shoulder; Z83.3 Family history of diabetes mellitus; Z82.5 Family history of asthma and other chronic lower respiratory diseases; Z85.028 Personal history of other malignant neoplasm of stomach; Z86.73 Personal history of transient ischemic attack (TIA), and cerebral infarction without residual deficits; Z88.1 Allergy status to other antibiotic agents; Z82.49 Family history of ischemic heart disease and other diseases of the circulatory system; Z79.899 Other long term (current) drug therapy; Z88.0 Allergy status to penicillin; Z91.013 Allergy to seafood; Z88.2 Allergy status to sulfonamides; Z88.8 Allergy status to other drugs, medicaments and biological substances; Z91.018 Allergy to other foods; Z86.19 Personal history of other infectious and parasitic diseases; Z90.49 Acquired absence of other specified parts of digestive tract; Z98.891 History of uterine scar from previous surgery; Z98.890 Other specified postprocedural states
CPT/HCPCS: 36410; 36415; 51702; 70450; 71046; 76937; 80048; 80053; 80306; 80320; 81001; 82550; 83605; 84484; 85025; 85027; 85610; 85730; 87040; 87635; 93005; 96360; 99285

== ENCOUNTER 2019-11-06 19:39 | Inpatient (IN) | payer MEDICARE, OTHER ==
--- NOTE | 2019-11-06 20:16 | ED ---
General Adult HPI - General Chief complaint: Skin/Abscess/Foreign Body Stated complaint: Leg Swelling/Redness Time Seen by Provider: 11/06/19 20:03 Source: patient Mode of arrival: ambulatory Limitations: no limitations - History of Present Illness Initial comments: Dictation was produced using [employer] dictation software. please excuse any grammatical, word or spelling errors. This patient was cared for during a federal and state declared state of emergency secondary to Covid 19 Chief Complaint: 64-year-old female past medical history of lupus, fibromyalgia and COPD with 1 day history of left lower extremity pain. History of Present Illness: Patient is 64-year-old female she has multiple comorbidities. She was recently treated and hospitalized for cellulitis of the leg. Patient states that her symptoms returned this morning. States that her left lower leg is hot and red and painful. She states that she does have some mild fevers at home. She denies any cough, shortness of breath, abdominal pain. Patient denies any history of gout. The ROS documented in this emergency department record has been reviewed and confirmed by me. Those systems with pertinent positive or negative responses have been documented in the HPI. All other systems are other negative and/or noncontributory. PHYSICAL EXAM: General Impression: Alert and oriented x3, not in acute distress HEENT: Normocephalic atraumatic, extra-ocular movements intact, pupils equal and reactive to light bilaterally, mucous membranes moist. Cardiovascular: Heart regular rate and rhythm Chest: Able to complete full sentences, no retractions, no tachypnea Abdomen: abdomen soft, non-tender, non-distended, no organomegaly Musculoskeletal: Pulses present and equal in all extremities, no peripheral edema Motor: no focal deficits noted Neurological: CN II-XII grossly intact, no focal motor or sensory deficits noted Skin: Erythematous warm rash to the left lower leg anteriorly. There is also a satellite erythematous and painful region over the dorsum of the foot Psych: Normal affect and mood ED course: 64-year-old female presents with cellulitic symptoms to the left lower extremity. Vital signs upon arrival shows temperature 100.2 cumbersome vital signs within acceptable limits. Laboratory evaluation obtained. Mild leukocytosis of 11.3. Hemoglobin 8.8. This appears to be around patient's baseline hemoglobin. Metabolic panel is about baseline. There is however evidence of acidosis but this appears to be normal for patient. Ankle x-ray shows no acute processes. Patient reevaluated at bedside. She states that she has multiple antibiotic ALLERGIES. Patient started on vancomycin. Considering cellulitic findings on physical examination with constitutional symptoms and mild leukocytosis of believe patient would benefit from short inpatient observation admission for medical monitoring. Patient does not show any signs of end organ dysfunction. She is agreeable with disposition. Discussed patient case with Dr. Haq is willing to accept patients care. EKG interpretation: Ventricular rate 90, normal sinus rhythm,. 134, QRS 82, QTC 494. No NE prolongation, no QTC prolongation, no ST or T-wave changes noted. EK G compared to 10/20/2019 showing no changes. Overall, this EKG is unremarkable - Related Data Home Medications Medication Instructions Recorded Confirmed Gabapentin [Neurontin] 300 mg PO TID 04/14/15 11/06/19 DULoxetine HCL [Cymbalta] 60 mg PO DAILY 05/24/17 11/06/19 Ergocalciferol [Vitamin D2 50,000 unit PO MO 05/24/17 11/06/19 (DRISDOL)] Folic Acid 1 mg PO DAILY 05/24/17 11/06/19 Magnesium Oxide [Mag-Ox] 400 mg PO BID 05/24/17 11/06/19 traZODone HCL 150 mg PO HS 02/27/18 11/06/19 Dicyclomine [Bentyl] 20 mg PO BID 07/10/18 11/06/19 ALPRAZolam [Xanax] 0.5 mg PO BID 10/20/19 11/06/19 Albuterol Sulfate [Proair Hfa] 2 puff INHALATION RT-Q4H PRN 10/20/19 11/06/19 Sodium Bicarbonate Tab 650 mg PO BID 10/20/19 11/06/19 tiZANidine [Zanaflex] 2 mg PO HS 10/20/19 11/06/19 Famotidine [Pepcid] 20 mg PO DAILY@1500 11/06/19 11/06/19 Lipase/Protease/Amylase [Zenpep Dr 80,000 units PO AC-TID 11/06/19 11/06/19 40,000 Units Capsule] Loperamide HCl [Imodium A-D] 2 mg PO TID 11/06/19 11/06/19 Allergies Allergy/AdvReac Type Severity Reaction Status Date / Time alcohol Allergy Unknown Verified 11/06/19 22:35 aspirin Allergy Unknown Verified 11/06/19 22:35 divalproex sodium Allergy Unknown Verified 11/06/19 22:35 [From Depakote] erythromycin base Allergy Unknown Verified 11/06/19 22:35 ketorolac [From Toradol] Allergy Unknown Verified 11/06/19 22:35 Penicillins Allergy Unknown Verified 11/06/19 22:35 shellfish derived [Shellfish] Allergy Unknown Verified 11/06/19 22:35 strawberry Allergy Unknown Verified 11/06/19 22:35 Sulfa (Sulfonamide Allergy Unknown Verified 11/06/19 22:35 Antibiotics) Review of Systems ROS Statement: Those systems with pertinent positive or pertinent negative responses have been documented in the HPI. ROS Other: All systems not noted in ROS Statement are negative. Past Medical History Past Medical History: Cancer, COPD, CVA/TIA, Fibromyalgia Additional Past Medical History / Comment(s): Lupus, TIA, right hand tendons severed, closed head injury, multiple sclerosis History of Any Multi-Drug Resistant Organisms: C-DIFF Date of last positivie culture/infection: 2014 MDRO Source:: patient Past Surgical History: Appendectomy, Back Surgery, Section, Orthopedic Surgery Additional Past Surgical History / Comment(s): stomach cancer Past Anesthesia/Blood Transfusion Reactions: No Reported Reaction Past Psychological History: Anxiety, Bipolar, Depression, PTSD Smoking Status: Current some day smoker Past Alcohol Use History: None Reported Past Drug Use History: None Reported - Past Family History Father Additional Family Medical History / Comment(s): Father has history of diabetes and stomach problems. Mother Additional Family Medical History / Comment(s): Mother has history of diabetes, coronary artery disease and COPD. Sister(s) Additional Family Medical History / Comment(s): Patient has sisters all have female problems. She does state there is breast cancer history in her aunt. Son(s) Additional Family Medical History / Comment(s): Patient has one son with no major medical problems. General Exam Limitations: no limitations Course Vital Signs 11/06/19 11/06/19 19:56 23:00 Temperature 100.2 F H 100.2 F H Pulse Rate 91 Respiratory 20 18 Rate Blood Pressure 182/81 150/74 O2 Sat by Pulse 100 97 Oximetry Medical Decision Making - Lab Data Result diagrams: 11/06/19 21:40 11/06/19 21:40 Lab Results 11/06/19 11/06/19 Range/Units 21:40 21:40 WBC 11.3 H (3.8-10.6) k/uL RBC 2.95 L (3.80-5.40) m/uL Hgb 8.8 L (11.4-16.0) gm/dL Hct 28.4 L (34.0-46.0) % MCV 96.4 D (80.0-100.0) fL MCH 29.9 (25.0-35.0) pg MCHC 31.1 (31.0-37.0) g/dL RDW 16.0 H (11.5-15.5) % Plt Count 291 (150-450) k/uL Hypochromasia Moderate Sodium 134 L (137-145) mmol/L Potassium 4.0 (3.5-5.1) mmol/L Chloride 107 (98-107) mmol/L Carbon Dioxide 15 L (22-30) mmol/L Anion Gap 12 mmol/L BUN 13 (7-17) mg/dL Creatinine 0.98 (0.52-1.04) mg/dL Est GFR (CKD-EPI)AfAm 70 (>60 ml/min/1.73 sqM) Est GFR (CKD-EPI)NonAf 60 (>60 ml/min/1.73 sqM) Glucose 105 H (74-99) mg/dL Calcium 8.3 L (8.4-10.2) mg/dL Disposition Clinical Impression: Cellulitis Disposition: ADMITTED IP TO THIS HOSP Condition: Fair Referrals: Meseret Haq MD [Primary Care Provider] - 1-2 days Decision Time: 23:28
--- NOTE | 2019-11-06 20:53 | XR ---
EXAMINATION TYPE: XR ankle complete LT DATE OF EXAM: 11/06/2019 COMPARISON: 11/03/2017 HISTORY: Ankle pain TECHNIQUE: 3 views FINDINGS: Ankle mortise is anatomic. I see no fracture nor dislocation. Subtalar joint appears normal . IMPRESSION: Negative left ankle exam. No change.
[2019-11-06 22:28] LABS: Calcium 8.3 mg/dL (8.4-10.2)
[2019-11-06 22:45] LABS: HCT 28.4 % (34.0-46.0); HGB 8.8 gm/dL (11.4-16.0); Hypochromasia Moderate; MCH 29.9 pg (25.0-35.0); MCHC 31.1 g/dL (31.0-37.0); Mean Platelet Volume 7.7; Platelet Count 291 k/uL (150-450); RBC 2.95 m/uL (3.80-5.40); WBC 11.3 k/uL (3.8-10.6)
[2019-11-06 23:07] LABS: MCV 96.4 fL (80.0-100.0)
[2019-11-06] MEDS ORDERED: VANCOMYCIN IV PER PHARMACY 1 EACH MISC MISCELLANE PRN (23:09)
[2019-11-06] MEDS ORDERED: ALBUTEROL NEBULIZED 2.5 MG/3 ML INHALATION PRN (23:19)
[2019-11-06] MEDS ORDERED: ONDANSETRON 4 MG/2 ML VIAL IVP PRN (23:24)
[2019-11-06] MEDS ORDERED: VANCOMYCIN 1,000 MG in SODIUM CHLORIDE 0.9% 250 ML IVPB ONE (23:30)
[2019-11-06 23:40] LABS: Band Neutrophils % 5 %; Lymphocytes # (M) 1.02 k/uL (1.0-4.8); Monocytes # (M) 0.34 k/uL (0-1.0); Neutrophils % (M) 83 %; Nucleated Red Blood Cells 0 /100 WBC (0-0); Total Cells Counted 100
[2019-11-06 23:48] LABS: INR 0.9 (<1.2); Partial Thromboplastin Time 24.7 sec (22.0-30.0); Prothrombin Time 9.6 sec (9.0-12.0)
[2019-11-07] MEDS ORDERED: NALOXONE 0.4 MG/ML 1 ML VIAL IV PRN
[2019-11-07] MEDS: DICYCLOMINE 20 MG TAB PO SCH ×3 (01:05→21:52)
[2019-11-07] MEDS: GABAPENTIN 300 MG CAP PO SCH ×4 (01:05→21:51)
[2019-11-07] MEDS: ALPRAZolam 0.5 MG TAB PO SCH ×3 (01:05→21:50)
[2019-11-07] MEDS: MAGNESIUM OXIDE 400 MG TAB PO SCH ×3 (01:06→21:51)
[2019-11-07] MEDS: tiZANidine 4 MG TAB PO SCH ×2 (01:06→22:28)
[2019-11-07] MEDS: traZODone HCL 50 MG TAB PO SCH ×2 (01:06→21:50)
[2019-11-07] MEDS: HYDROcodone/APAP 5-325MG 1 EACH TAB PO PRN ×4 (01:07→21:47)
[2019-11-07] MEDS: SODIUM CHLORIDE 0.9% 1,000 ML IV SCH (01:32)
[2019-11-07] MEDS: DULoxetine HCL 60 MG CAPSULE.DR PO SCH (10:11)
[2019-11-07] MEDS: LIPASE 5,000/PROTEASE 17,000/AMYLASE 24,000 PO SCH ×3 (10:11→18:00)
[2019-11-07] MEDS: LOPERAMIDE 2 MG CAP PO SCH ×3 (10:11→21:53)
[2019-11-07] MEDS: SODIUM BICARBONATE TAB 650 MG TAB PO SCH ×2 (10:12→21:51)
[2019-11-07] MEDS: FOLIC ACID 1 MG TAB PO SCH (10:12)
--- NOTE | 2019-11-07 12:41 | P.HPIM ---
History of Present Illness H&P Date: 11/07/19 Chief Complaint: Cellulitis This is a 64-year-old female patient of Dr. Haq with history of TIA, chronic pain, lupus anticoagulant, multiple sclerosis, fibromyalgia, chronic kidney disease stage III, anemia of chronic disease, generalized anxiety disorder and recurrent depression, vitamin D deficiency, gastroesophageal reflux disease. 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 Lemos from Hematology and has been receiving treatment, chronic pancreatitis with chronic pain syndromes was on large dose of dilaudid for a long time till I weaned her off. Patient had a recent hospitalization October 19 through October 23 which time she was treated for left lower leg cellulitis, acute kidney injury, left lower lobe atelectasis and mild metabolic encephalopathy. Patient was stabilized and discharged home with home care. Patient presented to the Emergency department at [facility] because of increased pain and redness to the left leg associated with mild fever. No cough, shortness of breath, abdominal pain. Temperature max 100.2, heart rate 91, blood pressure initially 182/81, pulse ox 100% on room air. EKG sinus rhythm and heart rate of [address] changes. WBC 11.4, hemoglobin 8.8, platelet count 291. INR 0.9. Sodium 134, potassium 4.0, chloride 107, CO2 15, BUN 13 and creatinine 0.98, blood sugar 105. Lactic acid 0.8. X-ray of the left ankle negative.. Patient was given 1 dose of vancomycin, [facility] and consult with Dr. aPt. Blood cultures status received. Covert 19 testing in progress. Review of Systems Constitutional: Reports chronic pain, Reports malaise, Reports weakness, Denies anorexia Eyes: denies blurred vision, denies bulging eye, denies decreased vision Ears, nose, mouth and throat: Denies dysphagia, Denies neck lump, Denies sore throat Cardiovascular: Denies chest pain, Denies decreased exercise tolerance, Denies dyspnea on exertion, Denies lightheadedness, Denies orthopnea, Denies shortness of breath, Denies syncope Respiratory: Denies congestion, Denies cough with sputum, Denies home oxygen, Denies sleep apnea, Denies snoring, Denies wheezing Gastrointestinal: Denies abdominal pain, Denies BRBPR, Denies change in bowel habits, Denies dyspepsia, Denies heartburn, Denies melena, Denies nausea, Denies vomiting Genitourinary: Denies dysuria, Denies nocturia Musculoskeletal: Denies gait dysfunction, Denies low back pain Musculoskeletal: left: ankle swelling, absent: ankle pain, ankle stiffness, elbow pain, elbow stiffness, elbow swelling, foot pain, foot stiffness, foot swelling, hand pain, hand stiffness, hand swelling, hip pain, hip stiffness, hip swelling, knee pain, knee stiffness, knee swelling, shoulder pain, shoulder stiffness, shoulder swelling, wrist pain, wrist stiffness, wrist swelling Integumentary: Reports color changes Neurological: Reports weakness, Denies migraines, Denies seizures, Denies tremors, Denies vertigo Psychiatric: Reports anxiety, Reports depression, Denies sadness/tearfulness, Denies sleep disturbances, Denies suicidal ideation Endocrine: Denies fatigue, Denies weight change Past Medical History Past Medical History: Cancer, COPD, CVA/TIA, Fibromyalgia Additional Past Medical History / Comment(s): Lupus, TIA, right hand tendons severed, closed head injury, multiple sclerosis History of Any Multi-Drug Resistant Organisms: C-DIFF Date of last positivie culture/infection: 2014 MDRO Source:: patient Past Surgical History: Appendectomy, Back Surgery, Section, Orthopedic Surgery Additional Past Surgical History / Comment(s): stomach cancer Past Anesthesia/Blood Transfusion Reactions: No Reported Reaction Past Psychological History: Anxiety, Bipolar, Depression, PTSD Smoking Status: Current some day smoker Past Alcohol Use History: None Reported Additional Past Alcohol Use History / Comment(s): Patient is a smoker of 2-3 packs per day since she was 12 years of age and has recently cut back to 4 cigarettes per day. She denies any alcohol use. Past Drug Use History: None Reported - Past Family History Father Additional Family Medical History / Comment(s): Father has history of diabetes and stomach problems. Mother Additional Family Medical History / Comment(s): Mother has history of diabetes, coronary artery disease and COPD. Sister(s) Additional Family Medical History / Comment(s): Patient has sisters all have female problems. She does state there is breast cancer history in her aunt. Son(s) Additional Family Medical History / Comment(s): Patient has one son with no ma jocelynn medical problems. Medications and Allergies Home Medications Medication Instructions Recorded Confirmed Type Gabapentin [Neurontin] 300 mg PO TID 04/14/15 11/06/19 History DULoxetine HCL [Cymbalta] 60 mg PO DAILY 05/24/17 11/06/19 History Ergocalciferol [Vitamin D2 50,000 unit PO MO 05/24/17 11/06/19 History (DRISDOL)] Folic Acid 1 mg PO DAILY 05/24/17 11/06/19 History Magnesium Oxide [Mag-Ox] 400 mg PO BID 05/24/17 11/06/19 History traZODone HCL 150 mg PO HS 02/27/18 11/06/19 History Dicyclomine [Bentyl] 20 mg PO BID 07/10/18 11/06/19 History ALPRAZolam [Xanax] 0.5 mg PO BID 10/20/19 11/06/19 History Albuterol Sulfate [Proair Hfa] 2 puff INHALATION RT-Q4H PRN 10/20/19 11/06/19 History Sodium Bicarbonate Tab 650 mg PO BID 10/20/19 11/06/19 History tiZANidine [Zanaflex] 2 mg PO HS 10/20/19 11/06/19 History Famotidine [Pepcid] 20 mg PO DAILY@1500 11/06/19 11/06/19 History Lipase/Protease/Amylase [Zenpep Dr 80,000 units PO AC-TID 11/06/19 11/06/19 History 40,000 Units Capsule] Loperamide HCl [Imodium A-D] 2 mg PO TID 11/06/19 11/06/19 History Allergies Allergy/AdvReac Type Severity Reaction Status Date / Time alcohol Allergy Unknown Verified 11/06/19 22:35 aspirin Allergy Unknown Verified 11/06/19 22:35 divalproex sodium Allergy Unknown Verified 11/06/19 22:35 [From Depakote] erythromycin base Allergy Unknown Verified 11/06/19 22:35 ketorolac [From Toradol] Allergy Unknown Verified 11/06/19 22:35 Penicillins Allergy Unknown Verified 11/06/19 22:35 shellfish derived [Shellfish] Allergy Unknown Verified 11/06/19 22:35 strawberry Allergy Unknown Verified 11/06/19 22:35 Sulfa (Sulfonamide Allergy Unknown Verified 05/13/20 22:35 Antibiotics) Physical Exam Vitals: Vital Signs Temp Pulse Resp BP Pulse Ox 11/07/19 06:47 98.4 F 89 16 119/62 96 11/07/19 01:25 99.9 F H 84 16 164/80 99 11/07/19 00:16 90 18 157/77 98 11/06/19 23:00 100.2 F H 89 18 150/74 97 11/06/19 19:56 100.2 F H 91 20 182/81 100 Intake and Output 11/06/19 11/07/19 11/07/19 22:59 06:59 14:59 Other: Weight 52.662 kg HEENT: head is atraumatic normocephalic pupils were equal round reactive to light and accommodations extra ocular muscle movements were intact. Neck: supple , no JVP, no carotid bruits. Chest: decrease breath sounds at the bases with few ronchi , there is no expiratory wheezes or intercostal retractions. Heart: first heart sound is depressed second heart sound is normal there is no gallop or murmur. Abdomen: soft , mild non specific tenderness, there is no rebound or guarding positive bowel sounds. Extremities: there is increased edema and mild erythema with warmth and tenderness to touch, tenderness over the dorsum of the foot, there is no calf tenderness, DP + 2 bilaterally. Neurologic examination: patient is awake alert and oriented X 3 CN II-XII are grossly intact, muscle power 4/5 in bilateral upper and lower extremities, DTR were normal, Babinski's are flexor bilaterally. Results CBC & Chem 7: 11/06/19 21:40 11/08/19 07:44 Labs: Abnormal Lab Results - Last 24 Hours (Table) 11/06/19 11/06/19 Range/Units 21:40 21:40 WBC 11.3 H (3.8-10.6) k/uL RBC 2.95 L (3.80-5.40) m/uL Hgb 8.8 L (11.4-16.0) gm/dL Hct 28.4 L (34.0-46.0) % RDW 16.0 H (11.5-15.5) % Neutrophils # (Manual) 9.90 H (1.3-7.7) k/uL Sodium 134 L (137-145) mmol/L Carbon Dioxide 15 L (22-30) mmol/L Glucose 105 H (74-99) mg/dL Calcium 8.3 L (8.4-10.2) mg/dL Thrombosis Risk Factor Assmnt - DVT/VTE Prophylaxis DVT/VTE Prophylaxis: Pharmacologic Prophylaxis ordered Assessment and Plan Plan: 1. Left lower leg cellulitis. Continue IV vancomycin, infectious disease consultation. Blood culture in process. 2. 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 Continue Folic acid 1 mg orally daily and she has been receiving Erythropoitein through her [employer]. 3. Chronic kidney disease stage 3. Saline lock, continue Sodium bicrab 650 mg orally bid, repeat CMP in AM. 4. History of Lupus anticoagulant. stable. 5. Chronic pancreatitis with chronic pain syndrome. Continue Bentyl. 6. Chronic pain syndrome. Continue Gabapentin 300 mg orally tid. 7. GERD. we will continue with Pepcid 20 mg orally daily. 8. Recurrent depression. Continue Cymbalta 60 mg orally daily. 9. Generalized anxiety disorder. Continue Xanax as needed, aware of the side effects of the treatment and the potential of habitual use. 10. Insomnia. Continue Trazodone 100 mg po at bedtime. 11. Vitamin D deficiency. Continue with vitamin D supplement. 12. History of Multiple sclerosis. Continue with Tizanidine 2 mg orally at bedtime. 13. DVT prophylaxis. we will continue with Heparin 5000 units SC Q 12 H. 14. GI prophylaxis. we will continue with Pepcid. 15. COVID-19 infection not present. Admit to inpatient, estimated length of stay 2 midnights. CODE STATUS: NO code. Discharge plan: Most likely home with [facility] Impression and plan of care have been directed as dictated by the signing physician. Annalisa Delcid nurse practitioner acting as scribe for signing physician.
[2019-11-07] MEDS: FAMOTIDINE 20 MG TAB PO SCH (15:39)
[2019-11-07] MEDS: HEPARIN SODIUM,PORCINE 5,000 UNIT/ML 1 ML VIAL SQ SCH (21:53)
[2019-11-07] MEDS ORDERED: VANCOMYCIN 1,000 MG in SODIUM CHLORIDE 0.9% 250 ML IVPB SCH ×4 (23:00)
--- NOTE | 2019-11-08 00:34 | P.CONS ---
History of Present Illness - Reason for Consult Consult date: 11/07/19 left leg cellulitis Requesting physician: Meseret Haq - Chief Complaint left leg pain and redness x 1 day - History of Present Illness Patient is a 64-year-old female female who was recently admitted at this facility and treated for left lower extremity cellulitis treated with cefazolin and discharged on Keflex patient is now presenting back to [facility] ER with chief complaints of 1 day history of left leg pain swelling and redness patient noticed her left leg becoming swollen and red blood yesterday denies any history of any trauma her leg was and foot was red swollen pain describing to be sharp 68-year-old friend had radiation patient currently with no skin breakdown or any drainage did have some denies high-grade fever with the symptom the patient has been eval by the ER physician on arrival to the ER the patient did have fever 100.2 patient did have a white count of 11.3 kidney function was normal blood culture has been obtained x-rays of ankle did not show any bony changes patient started on vancomycin admitted to hospital infectious was consulted for further recommendation regarding cellulitis and antibiotic therapy. Review of Systems Positive point has been mentioned in HPI rest of the systems are negative Past Medical History Past Medical History: Cancer, COPD, CVA/TIA, Fibromyalgia Additional Past Medical History / Comment(s): Lupus, TIA, right hand tendons severed, closed head injury, multiple sclerosis History of Any Multi-Drug Resistant Organisms: C-DIFF Year Discovered:: 2014 MDRO Source:: patient Past Surgical History: Appendectomy, Back Surgery, Section, Orthopedic Surgery Additional Past Surgical History / Comment(s): stomach cancer Past Anesthesia/Blood Transfusion Reactions: No Reported Reaction Past Psychological History: Anxiety, Bipolar, Depression, PTSD Smoking Status: Current some day smoker Past Alcohol Use History: None Reported Additional Past Alcohol Use History / Comment(s): Patient is a smoker of 2-3 packs per day since she was 12 years of age and has recently cut back to 4 cigarettes per day. She denies any alcohol use. Past Drug Use History: None Reported - Past Family History Father Additional Family Medical History / Comment(s): Father has history of diabetes and stomach problems. Mother Additional Family Medical History / Comment(s): Mother has history of diabetes, coronary artery disease and COPD. Sister(s) Additional Family Medical History / Comment(s): Patient has sisters all have female problems. She does state there is breast cancer history in her aunt. Son(s) Additional Family Medical History / Comment(s): Patient has one son with no major medical problems. Medications and Allergies Home Medications Medication Instructions Recorded Confirmed Type Gabapentin [Neurontin] 300 mg PO TID 04/14/15 11/06/19 History DULoxetine HCL [Cymbalta] 60 mg PO DAILY 05/24/17 11/06/19 History Ergocalciferol [Vitamin D2 50,000 unit PO MO 05/24/17 11/06/19 History (DRISDOL)] Folic Acid 1 mg PO DAILY 05/24/17 11/06/19 History Magnesium Oxide [Mag-Ox] 400 mg PO BID 05/24/17 11/06/19 History traZODone HCL 150 mg PO HS 02/27/18 11/06/19 History Dicyclomine [Bentyl] 20 mg PO BID 07/10/18 11/06/19 History ALPRAZolam [Xanax] 0.5 mg PO BID 10/20/19 11/06/19 History Albuterol Sulfate [Proair Hfa] 2 puff INHALATION RT-Q4H PRN 10/20/19 11/06/19 History Sodium Bicarbonate Tab 650 mg PO BID 10/20/19 11/06/19 History tiZANidine [Zanaflex] 2 mg PO HS 10/20/19 11/06/19 History Famotidine [Pepcid] 20 mg PO DAILY@1500 11/06/19 11/06/19 History Lipase/Protease/Amylase [Zenpep Dr 80,000 units PO AC-TID 11/06/19 11/06/19 History 40,000 Units Capsule] Loperamide HCl [Imodium A-D] 2 mg PO TID 11/06/19 11/06/19 History Allergies Allergy/AdvReac Type Severity Reaction Status Date / Time alcohol Allergy Unknown Verified 11/06/19 22:35 aspirin Allergy Unknown Verified 11/06/19 22:35 divalproex sodium Allergy Unknown Verified 11/06/19 22:35 [From Depakote] erythromycin base Allergy Unknown Verified 11/06/19 22:35 ketorolac [From Toradol] Allergy Unknown Verified 11/06/19 22:35 Penicillins Allergy Unknown Verified 11/06/19 22:35 shellfish derived [Shellfish] Allergy Unknown Verified 11/06/19 22:35 strawberry Allergy Unknown Verified 11/06/19 22:35 Sulfa (Sulfonamide Allergy Unknown Verified 11/06/19 22:35 Antibiotics) Physical Exam Vitals: Vital Signs Temp Pulse Pulse Resp BP BP Pulse Ox 11/07/19 15:00 98.4 F 87 17 133/71 97 11/07/19 14:36 86 16 126/82 99 11/07/19 06:47 98.4 F 89 16 119/62 96 11/07/19 01:25 99.9 F H 84 16 164/80 99 11/07/19 00:16 90 18 157/77 98 11/06/19 23:00 100.2 F H 89 18 150/74 97 11/06/19 19:56 100.2 F H 91 20 182/81 100 GENERAL DESCRIPTION: Elderly female lying in bed, no distress. No tachypnea or accessory muscle of respiration use. HEENT: Shows Pallor , no scleral icterus. Oral mucous membrane is dry. NECK: Trachea central, no thyromegaly. LUNGS: Unlabored breathing. Clear to auscultation anteriorly. No wheeze or crackle. HEART: S1, S2, regular rate and rhythm. ABDOMEN: Soft, no tenderness , guarding or rigidity EXTREMITIES: Left leg did have erythematous patches which are warm and tender to touch. SKIN: No rash, no masses palpable. NEUROLOGICAL: The patient is awake, alert, oriented x3, mood and affect normal. Results CBC & Chem 7: 11/06/19 21:40 11/06/19 21:40 Labs: Abnormal Lab Results - Last 24 Hours (Table) 11/06/19 11/06/19 Range/Units 21:40 21:40 WBC 11.3 H (3.8-10.6) k/uL RBC 2.95 L (3.80-5.40) m/uL Hgb 8.8 L (11.4-16.0) gm/dL Hct 28.4 L (34.0-46.0) % RDW 16.0 H (11.5-15.5) % Neutrophils # (Manual) 9.90 H (1.3-7.7) k/uL Sodium 134 L (137-145) mmol/L Carbon Dioxide 15 L (22-30) mmol/L Glucose 105 H (74-99) mg/dL Calcium 8.3 L (8.4-10.2) mg/dL Assessment and Plan Assessment: patient present hospital include left lower extremity cellulitis in this patient who did have a erythematous patches to the left foot and leg area likely from gram-positive skin tera clinical suspicion low for MRSA resulting gram-negative infection (1) Left leg cellulitis Current Visit: Yes Status: Acute Code(s): L03.116 - CELLULITIS OF LEFT LOWER LIMB SNOMED Code(s): 758821395 Plan: 1-tonja the area of the redness 2-Matthew wrap to the left leg from just above the toe to below the knee 3-discontinue vancomycin 4-Start the patient cefazolin 2 g every 8 hour we will follow on clinical condition and cultures to further adjust medication if needed Thank you for this consultation we will follow the patient along with you Time with Patient: Greater than 30
[2019-11-08] MEDS: SODIUM CHLORIDE 0.9% 1,000 ML IV SCH ×2 (00:56→22:51)
[2019-11-08] MEDS: HYDROcodone/APAP 5-325MG 1 EACH TAB PO PRN ×5 (03:43→20:43)
[2019-11-08] MEDS: DULoxetine HCL 60 MG CAPSULE.DR PO SCH (08:26)
[2019-11-08] MEDS: GABAPENTIN 300 MG CAP PO SCH ×3 (08:26→20:32)
[2019-11-08] MEDS: HEPARIN SODIUM,PORCINE 5,000 UNIT/ML 1 ML VIAL SQ SCH ×2 (08:26→20:31)
[2019-11-08] MEDS: MAGNESIUM OXIDE 400 MG TAB PO SCH ×2 (08:26→20:32)
[2019-11-08] MEDS: LIPASE 5,000/PROTEASE 17,000/AMYLASE 24,000 PO SCH ×3 (08:26→17:10)
[2019-11-08] MEDS: SODIUM BICARBONATE TAB 650 MG TAB PO SCH ×2 (08:26→20:32)
[2019-11-08] MEDS: ALPRAZolam 0.5 MG TAB PO SCH ×2 (08:26→20:32)
[2019-11-08] MEDS: FOLIC ACID 1 MG TAB PO SCH (08:26)
[2019-11-08] MEDS: LOPERAMIDE 2 MG CAP PO SCH ×3 (08:26→20:32)
[2019-11-08] MEDS: DICYCLOMINE 20 MG TAB PO SCH ×2 (08:27→20:32)
--- NOTE | 2019-11-08 13:57 | P.PN ---
Subjective Progress Note Date: 11/08/19 This is a 64-year-old female patient of Dr. Haq with history of TIA, chronic pain, lupus anticoagulant, multiple sclerosis, fibromyalgia, chronic kidney disease stage III, anemia of chronic disease, generalized anxiety disorder and recurrent depression, vitamin D deficiency, gastroesophageal reflux disease. 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 Lemos from Hematology and has been receiving treatment, chronic pancreatitis with chronic pain syndromes was on large dose of dilaudid for a long time till I weaned her off. Patient had a recent hospitalization October 19 through October 23 which time she was treated for left lower leg cellulitis, acute kidney injury, left lower lobe atelectasis and mild metabolic encephalopathy. Patient was stabilized and discharged home with home care. Patient presented to the Emergency department at [facility] because of increased pain and redness to the left leg associated with mild fever. No cough, shortness of breath, abdominal pain. Temperature max 100.2, heart rate 91, blood pressure initially 182/81, pulse ox 100% on room air. EKG sinus rhythm and heart rate of [address] changes. WBC 11.4, hemoglobin 8.8, platelet count 291. INR 0.9. Sodium 134, potassium 4.0, chloride 107, CO2 15, BUN 13 and creatinine 0.98, blood sugar 105. Lactic acid 0.8. X-ray of the left ankle negative.. Patient was given 1 dose of vancomycin[facility] and [facility] with Dr. Pat. Blood cultures status received. Covert 19 testing in progress. 11/07: Patient has been seen by Dr. Enrique and antibiotics changed to Kefzol. Blood culture is showing no growth after 24 hours. Patient's been afebrile, heart rate 90, blood pressure 109/67. Creatinine 1.08. Coronavirus testing is negative. Patient has been eating very little less and 25-50% on all her meals refused breakfast this morning. Patient states that she is unable to eat due to the excruciating pain in her right shoulder. This pain is radiating into her neck and down to the lumbar area. She states that she is scheduled for an MRI outpatient a week from today. The patient continues to have erythema and warmth to the areas on the left lower leg. Patient requests to be no CODE STATUS. Objective - Vital Signs Vital signs: Vital Signs Temp 98.3 F 11/08/19 07:08 Pulse 90 11/08/19 08:00 Resp 16 11/08/19 08:00 BP 109/67 11/08/19 07:08 Pulse Ox 96 11/08/19 07:08 Intake & Output 11/07/19 11/08/19 11/08/19 18:59 06:59 18:59 Weight 52.662 kg Other: Voiding Method Toilet Toilet Toilet # Voids 0 1 - Exam Review of Systems Constitutional: Reports chronic pain, Reports malaise, Reports weakness, Denies anorexia Eyes: denies blurred vision, denies bulging eye, denies decreased vision Ears, nose, mouth and throat: Denies dysphagia, Denies neck lump, Denies sore throat Cardiovascular: Denies chest pain, Denies decreased exercise tolerance, Denies dyspnea on exertion, Denies lightheadedness, Denies orthopnea, Denies shortness of breath, Denies syncope Respiratory: Denies congestion, Denies cough with sputum, Denies home oxygen, Denies sleep apnea, Denies snoring, Denies wheezing Gastrointestinal: Denies abdominal pain, Denies BRBPR, Denies change in bowel habits, Denies dyspepsia, Denies heartburn, Denies melena, Denies nausea, Denies vomiting Genitourinary: Denies dysuria, Denies nocturia Musculoskeletal: Denies gait dysfunction, Denies low back pain Musculoskeletal: left: ankle swelling, right shoulder pain, right shoulder stiffness, absent: ankle pain, ankle stiffness, elbow pain, elbow stiffness, elbow swelling, foot pain, foot stiffness, foot swelling, hand pain, hand stiffness, hand swelling, hip pain, hip stiffness, hip swelling, knee pain, knee stiffness, knee swelling, wrist pain, wrist stiffness, wrist swelling Integumentary: Reports color changes Neurological: Reports weakness, Denies migraines, Denies seizures, Denies tremors, Denies vertigo Psychiatric: Reports anxiety, Reports depression, Denies sadness/tearfulness, Denies sleep disturbances, Denies suicidal ideation Endocrine: Denies fatigue, Denies weight change Physical examination GEN: This is a 64-year-old thin female. She is in bed and appears to be comfortable and in no acute distress. She does complain of significant right shoulder discomfort. HEENT: head is atraumatic normocephalic pupils were equal round reactive to light and accommodations extra ocular muscle movements were intact. Neck: supple , no JVP, no carotid bruits. Chest: decrease breath sounds at the bases with few ronchi , there is no expiratory wheezes or intercostal retractions. Heart: first heart sound is depressed second heart sound is normal there is no gallop or murmur. Abdomen: soft , mild non specific tenderness, there is no rebound or guarding positive bowel sounds. Extremities: there is increased edema and mild erythema with warmth and tenderness to touch, tenderness over the dorsum of the foot, there is no calf tenderness, DP + 2 bilaterally. Neurologic examination: patient is awake alert and oriented X 3 CN II-XII are grossly intact, muscle power 4/5 in bilateral upper and lower extremities, DTR were normal, Babinski's are flexor bilaterally. - Labs CBC & Chem 7: 11/06/19 21:40 11/08/19 07:44 Labs: Abnormal Lab Results - Last 24 Hours (Table) 11/08/19 Range/Units 07:44 Creatinine 1.08 H (0.52-1.04) mg/dL Microbiology - Last 24 Hours (Table) 11/07/19 07:16 Blood Culture - Preliminary Blood No Growth after 24 hours 11/07/19 07:16 Blood Culture - Preliminary Blood No Growth after 24 hours Assessment and Plan Plan: 1. Left lower leg cellulitis. Continue IV Kefzol, infectious disease consultation appreciated. Blood culture no growth after 24 hours. 2. 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 Continue Folic acid 1 mg orally daily and she has been receiving Erythropoitein through her [employer]. 3. Chronic kidney disease stage 3. Saline lock, continue Sodium bicarb 650 mg orally bid, repeat CMP in AM. 4. History of Lupus anticoagulant. stable. 5. Chronic pancreatitis with chronic pain syndrome. Continue Bentyl. 6. Chronic pain syndrome. Continue Gabapentin 300 mg orally tid. 7. GERD. we will continue with Pepcid 20 mg orally daily. 8. Recurrent depression. Continue Cymbalta 60 mg orally daily. 9. Generalized anxiety disorder. Continue Xanax as needed, aware of the side effects of the treatment and the potential of habitual use. 10. Insomnia. Continue Trazodone 100 mg po at bedtime. 11. Vitamin D deficiency. Continue with vitamin D supplement. 12. History of Multiple sclerosis. Continue with Tizanidine 2 mg orally at bedtime. 13. DVT prophylaxis. we will continue with Heparin 5000 units SC Q 12 H. 14. GI prophylaxis. we will continue with Pepcid. 15. COVID-19 infection not present. CODE STATUS: NO code. Discharge plan: Return home at [facility] Impression and plan of care have been directed as dictated by the signing physician. Annalisa Delcid nurse practitioner acting as scribe for signing physician.
[2019-11-08] MEDS: FAMOTIDINE 20 MG TAB PO SCH (16:07)
[2019-11-08] MEDS: traZODone HCL 50 MG TAB PO SCH (20:32)
[2019-11-08] MEDS: tiZANidine 4 MG TAB PO SCH (20:32)
--- NOTE | 2019-11-08 22:48 | PN ---
PROGRESS NOTE DATE OF SERVICE: 11/08/2019 REASON FOR FOLLOWUP: Left leg cellulitis. INTERVAL HISTORY: The patient is currently afebrile. The patient is breathing comfortably. The patient denies having any chest pain or shortness of breath or cough. No nausea, vomiting or abdominal pain. Overall pain and discomfort to the left leg has improved. PHYSICAL EXAMINATION: Blood pressure 114/67 with a pulse of 83, temperature 98.4. She is 97% on room air. General description is an elderly female lying in bed in no distress. RESPIRATORY SYSTEM: Unlabored breathing. Clear to auscultation anteriorly. HEART: S1, S2. Regular rate and rhythm. ABDOMEN: Soft. No tenderness. LABS: Creatinine 1.08. Blood culture has been negative. DIAGNOSTIC IMPRESSION AND PLAN: Patient with acute left lower extremity cellulitis, clinically responding to cefazolin; to continue and monitor clinical course closely. Continue with supportive care. MMODL / IJN: [id number] /
[2019-11-09] MEDS: HYDROcodone/APAP 7.5-325MG 1 EACH TAB PO PRN ×4 (01:36→19:58)
[2019-11-09 08:00] LABS: ALT <6 U/L (4-34); AST 23 U/L (14-36); African American GFR (CKD) 75 (>60 ml/min/1.73 sqM); Alkaline Phosphatase 104 U/L (38-126); Anion Gap 10 mmol/L; Blood Urea Nitrogen 13 mg/dL (7-17); Calcium 7.3 mg/dL (8.4-10.2); Carbon Dioxide 17 mmol/L (22-30); Chloride 108 mmol/L (98-107); Glucose 107 mg/dL (74-99); Non-African American GFR(CKD) 65 (>60 ml/min/1.73 sqM); Potassium 3.6 mmol/L (3.5-5.1); Sodium 135 mmol/L (137-145); Total Bilirubin 0.4 mg/dL (0.2-1.3); Total Protein 5.6 g/dL (6.3-8.2)
[2019-11-09 08:36] LABS: Basophils % (A) 1 %; Eosinophils # (A) 0.1 k/uL (0-0.7); Eosinophils % (A) 2 %; HCT 30.6 % (34.0-46.0); HGB 8.7 gm/dL (11.4-16.0); Hypochromasia Marked; Lymphocytes # (A) 0.7 k/uL (1.0-4.8); Lymphocytes % (A) 14 %; MCH 29.3 pg (25.0-35.0); MCHC 28.5 g/dL (31.0-37.0); Macrocytosis Moderate; Mean Platelet Volume 7.6; Monocytes # (A) 0.4 k/uL (0-1.0); Monocytes % (A) 9 %; Neutrophils # (A) 3.4 k/uL (1.3-7.7); Neutrophils % (A) 73 %; Platelet Count 274 k/uL (150-450); RBC 2.97 m/uL (3.80-5.40); RDW 15.6 % (11.5-15.5); WBC 4.7 k/uL (3.8-10.6)
[2019-11-09] MEDS: ALPRAZolam 0.5 MG TAB PO SCH ×2 (08:49→21:16)
[2019-11-09] MEDS: LIPASE 5,000/PROTEASE 17,000/AMYLASE 24,000 PO SCH ×3 (08:49→17:56)
[2019-11-09] MEDS: LOPERAMIDE 2 MG CAP PO SCH ×3 (08:50→21:20)
[2019-11-09] MEDS: HEPARIN SODIUM,PORCINE 5,000 UNIT/ML 1 ML VIAL SQ SCH ×2 (08:50→21:16)
[2019-11-09] MEDS: DULoxetine HCL 60 MG CAPSULE.DR PO SCH (08:50)
[2019-11-09] MEDS: SODIUM BICARBONATE TAB 650 MG TAB PO SCH ×2 (08:50→21:16)
[2019-11-09] MEDS: GABAPENTIN 300 MG CAP PO SCH ×3 (08:50→21:16)
[2019-11-09] MEDS: FOLIC ACID 1 MG TAB PO SCH (08:50)
[2019-11-09] MEDS: MAGNESIUM OXIDE 400 MG TAB PO SCH ×2 (08:50→21:16)
[2019-11-09] MEDS: DICYCLOMINE 20 MG TAB PO SCH ×2 (08:52→21:16)
--- NOTE | 2019-11-09 12:02 | P.PN ---
Subjective Progress Note Date: 11/09/19 This is a 64-year-old female patient of Dr. Haq with history of TIA, chronic pain, lupus anticoagulant, multiple sclerosis, fibromyalgia, chronic kidney disease stage III, anemia of chronic disease, generalized anxiety disorder and recurrent depression, vitamin D deficiency, gastroesophageal reflux disease. 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 Lemos from Hematology and has been receiving treatment, chronic pancreatitis with chronic pain syndromes was on large dose of dilaudid for a long time till I weaned her off. Patient had a recent hospitalization October 19 through October 23 which time she was treated for left lower leg cellulitis, acute kidney injury, left lower lobe atelectasis and mild metabolic encephalopathy. Patient was stabilized and discharged home with home care. Patient presented to the Emergency department at [facility] because of increased pain and redness to the left leg associated with mild fever. No cough, shortness of breath, abdominal pain. Temperature max 100.2, heart rate 91, blood pressure initially 182/81, pulse ox 100% on room air. EKG sinus rhythm and heart rate of [address] changes. WBC 11.4, hemoglobin 8.8, platelet count 291. INR 0.9. Sodium 134, potassium 4.0, chloride 107, CO2 15, BUN 13 and creatinine 0.98, blood sugar 105. Lactic acid 0.8. X-ray of the left ankle negative.. Patient was given 1 dose of vancomycin, [facility] and [facility] with Dr. Pat. Blood cultures status received. Covert 19 testing in progress. 11/07: Patient has been seen by Dr. Enrique and antibiotics changed to Kefzol. Blood culture is showing no growth after 24 hours. Patient's been afebrile, heart rate 90, blood pressure 109/67. Creatinine 1.08. Coronavirus testing is negative. Patient has been eating very little less and 25-50% on all her meals refused breakfast this morning. Patient states that she is unable to eat due to the excruciating pain in her right shoulder. This pain is radiating into her neck and down to the lumbar area. She states that she is scheduled for an MRI outpatient a week from today. The patient continues to have erythema and warmth to the areas on the left lower leg. Patient requests to be no CODE STATUS. 11/08: Patient appears to be a bit sleepy today she did not even eat her breakfast she stated that the dropped her tray but they never woke her up, and he came into the trachea without her eating anything, she is ready to have lunch today she has no chest pain she complains of increased pain in the right shoulder as well as her left foot however she appears drowsy today and I had discussion her maybe she should cut down on her pain medication at this time we will continue to monitor very closely. She is maintained on Kefzol for IV anabiotic, she had her left lower extremity in an Matthew wrap and I believe overall she is doing much better. Objective - Vital Signs Vital signs: Vital Signs Temp 98.5 F 11/09/19 07:05 Pulse 77 11/09/19 07:05 Resp 16 11/09/19 07:05 BP 146/76 11/09/19 07:05 Pulse Ox 95 11/09/19 07:05 Intake & Output 11/08/19 11/09/19 11/09/19 18:59 06:59 18:59 Intake Total 590 Balance 590 Intake: Intake, IV Titration 50 Amount ceFAZolin 2 gm In Sodium 50 Chloride 0.9% 50 ml @ 100 mls/hr IVPB Q8HR [facility] Rx# :[id number] Oral 540 Other: Voiding Method Toilet Toilet Toilet # Voids 2 2 - Exam Review of Systems Constitutional: Reports chronic pain, Reports malaise, Reports weakness, Denies anorexia Eyes: denies blurred vision, denies bulging eye, denies decreased vision Ears, nose, mouth and throat: Denies dysphagia, Denies neck lump, Denies sore throat Cardiovascular: Denies chest pain, Denies decreased exercise tolerance, Denies dyspnea on exertion, Denies lightheadedness, Denies orthopnea, Denies shortness of breath, Denies syncope Respiratory: Denies congestion, Denies cough with sputum, Denies home oxygen, Denies sleep apnea, Denies snoring, Denies wheezing Gastrointestinal: Denies abdominal pain, Denies BRBPR, Denies change in bowel habits, Denies dyspepsia, Denies heartburn, Denies melena, Denies nausea, Denies vomiting Genitourinary: Denies dysuria, Denies nocturia Musculoskeletal: Denies gait dysfunction, Denies low back pain Musculoskeletal: left: ankle swelling, right shoulder pain, right shoulder stiffness, absent: ankle pain, ankle stiffness, elbow pain, elbow stiffness, elbow swelling, foot pain, foot stiffness, foot swelling, hand pain, hand stiffness, hand swelling, hip pain, hip stiffness, hip swelling, knee pain, knee stiffness, knee swelling, wrist pain, wrist stiffness, wrist swelling Integumentary: Reports color changes Neurological: Reports weakness, Denies migraines, Denies seizures, Denies pallavi mors, Denies vertigo Psychiatric: Reports anxiety, Reports depression, Denies sadness/tearfulness, Denies sleep disturbances, Denies suicidal ideation Endocrine: Denies fatigue, Denies weight change Physical examination GEN: This is a 64-year-old thin female. She is in bed and appears to be comfortable and in no acute distress. She does complain of significant right shoulder discomfort. HEENT: head is atraumatic normocephalic pupils were equal round reactive to light and accommodations extra ocular muscle movements were intact. Neck: supple , no JVP, no carotid bruits. Chest: decrease breath sounds at the bases with few ronchi , there is no expiratory wheezes or intercostal retractions. Heart: first heart sound is depressed second heart sound is normal there is no gallop or murmur. Abdomen: soft , mild non specific tenderness, there is no rebound or guarding positive bowel sounds. Extremities: there is increased edema and mild erythema with warmth and tenderness to touch, tenderness over the dorsum of the foot, there is no calf tenderness, DP + 2 bilaterally. Neurologic examination: patient is awake alert and oriented X 3 CN II-XII are grossly intact, muscle power 4/5 in bilateral upper and lower extremities, DTR were normal, Babinski's are flexor bilaterally. - Labs CBC & Chem 7: 11/09/19 06:19 11/09/19 06:19 Labs: Abnormal Lab Results - Last 24 Hours (Table) 11/09/19 11/09/19 Range/Units 06:19 06:19 RBC 2.97 L (3.80-5.40) m/uL Hgb 8.7 L (11.4-16.0) gm/dL Hct 30.6 L (34.0-46.0) % MCV 103.0 H D (80.0-100.0) fL MCHC 28.5 L (31.0-37.0) g/dL RDW 15.6 H (11.5-15.5) % Lymphocytes # 0.7 L (1.0-4.8) k/uL Sodium 135 L (137-145) mmol/L Chloride 108 H (98-107) mmol/L Carbon Dioxide 17 L (22-30) mmol/L Glucose 107 H (74-99) mg/dL Calcium 7.3 L (8.4-10.2) mg/dL Total Protein 5.6 L (6.3-8.2) g/dL Albumin 3.0 L (3.5-5.0) g/dL Microbiology - Last 24 Hours (Table) 11/07/19 07:16 Blood Culture - Preliminary Blood No Growth after 48 hours 11/07/19 07:16 Blood Culture - Preliminary Blood No Growth after 48 hours Assessment and Plan Assessment: Assessment and Plan Plan: 1. Left lower leg cellulitis. Continue IV Kefzol, infectious disease consultation appreciated. Blood culture no growth after 24 hours. 2. 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 Continue Folic acid 1 mg orally daily and she has been receiving Erythropoitein through her [facility]. 3. Chronic kidney disease stage 3. Saline lock, continue Sodium bicarb 650 mg orally bid, repeat CMP in AM. 4. History of Lupus anticoagulant. stable. 5. Chronic pancreatitis with chronic pain syndrome. Continue Bentyl. 6. Chronic pain syndrome. Continue Gabapentin 300 mg orally tid. 7. GERD. we will continue with Pepcid 20 mg orally daily. 8. Recurrent depression. Continue Cymbalta 60 mg orally daily. 9. Generalized anxiety disorder. Continue Xanax as needed, aware of the side effects of the treatment and the potential of habitual use. 10. Insomnia. Continue Trazodone 100 mg po at bedtime. 11. Vitamin D deficiency. Continue with vitamin D supplement. 12. History of Multiple sclerosis. Continue with Tizanidine 2 mg orally at bedtime. 13. DVT prophylaxis. we will continue with Heparin 5000 units SC Q 12 H. 14. GI prophylaxis. we will continue with Pepcid. 15. COVID-19 infection not present. 16. Erythema nodosum on the left lower extremity likely related to underlying immune disorder, I discussed with the patient put her on a small dose of penicillin or IV Solu-Medrol however she declined due to the side effects and she stated that she is ALLERGIC to it. 17. Increase activity.
[2019-11-09] MEDS: FAMOTIDINE 20 MG TAB PO SCH (15:56)
--- NOTE | 2019-11-09 16:33 | PN ---
PROGRESS NOTE DATE OF SERVICE: 11/09/2019 REASON FOR FOLLOWUP: Left lower extremity cellulitis. INTERVAL HISTORY: The patient is currently afebrile. Patient is breathing comfortably. Denies any chest pain or any cough. No nausea or vomiting. Left leg pain and swelling has improved. PHYSICAL EXAMINATION: Blood pressure 146/76, pulse of 77, temperature 98.4. She is 95% on room air. General description is an elderly female lying in bed in no distress. Respiratory system: Unlabored breathing, clear to auscultation anteriorly. Heart S1, S2. Regular rate and rhythm. Abdomen soft, no tenderness. Left leg is currently dressed in the Matthew wrap. LABS: White count of 4.7, creatinine 0.92. Blood culture has been negative. DIAGNOSTIC IMPRESSION AND PLAN: Patient with acute left lower extremity cellulitis clinically responding to cefazolin. White count normalized. To continue cefazolin. Finish with oral antibiotics. Continue supportive care. MMODL / IJN: [id number] /
[2019-11-09] MEDS: traZODone HCL 50 MG TAB PO SCH (21:16)
[2019-11-09] MEDS: tiZANidine 4 MG TAB PO SCH (21:16)
[2019-11-09] MEDS: SODIUM CHLORIDE 0.9% 1,000 ML IV SCH (23:37)
[2019-11-10] MEDS: HYDROcodone/APAP 7.5-325MG 1 EACH TAB PO PRN (06:04)
[2019-11-10] MEDS: GABAPENTIN 300 MG CAP PO SCH ×3 (09:12→21:19)
[2019-11-10] MEDS: DULoxetine HCL 60 MG CAPSULE.DR PO SCH (09:12)
[2019-11-10] MEDS: MAGNESIUM OXIDE 400 MG TAB PO SCH ×2 (09:12→21:20)
[2019-11-10] MEDS: HEPARIN SODIUM,PORCINE 5,000 UNIT/ML 1 ML VIAL SQ SCH ×2 (09:12→21:19)
[2019-11-10] MEDS: LIPASE 5,000/PROTEASE 17,000/AMYLASE 24,000 PO SCH ×3 (09:12→17:37)
[2019-11-10] MEDS: SODIUM BICARBONATE TAB 650 MG TAB PO SCH ×2 (09:12→21:19)
[2019-11-10] MEDS: FOLIC ACID 1 MG TAB PO SCH (09:12)
[2019-11-10] MEDS: ALPRAZolam 0.5 MG TAB PO SCH ×2 (09:12→21:20)
[2019-11-10] MEDS: LOPERAMIDE 2 MG CAP PO SCH ×3 (09:14→21:20)
[2019-11-10] MEDS: DICYCLOMINE 20 MG TAB PO SCH ×2 (09:36→21:19)
--- NOTE | 2019-11-10 11:24 | P.PN ---
Subjective Progress Note Date: 11/10/19 This is a 64-year-old female patient of Dr. Haq with history of TIA, chronic pain, lupus anticoagulant, multiple sclerosis, fibromyalgia, chronic kidney disease stage III, anemia of chronic disease, generalized anxiety disorder and recurrent depression, vitamin D deficiency, gastroesophageal reflux disease. 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 Lemos from Hematology and has been receiving treatment, chronic pancreatitis with chronic pain syndromes was on large dose of dilaudid for a long time till I weaned her off. Patient had a recent hospitalization October 19 through October 23 which time she was treated for left lower leg cellulitis, acute kidney injury, left lower lobe atelectasis and mild metabolic encephalopathy. Patient was stabilized and discharged home with home care. Patient presented to the Emergency department at [facility] because of increased pain and redness to the left leg associated with mild fever. No cough, shortness of breath, abdominal pain. Temperature max 100.2, heart rate 91, blood pressure initially 182/81, pulse ox 100% on room air. EKG sinus rhythm and heart rate of [address] changes. WBC 11.4, hemoglobin 8.8, platelet count 291. INR 0.9. Sodium 134, potassium 4.0, chloride 107, CO2 15, BUN 13 and creatinine 0.98, blood sugar 105. Lactic acid 0.8. X-ray of the left ankle negative.. Patient was given 1 dose of vancomycin, [facility] and [facility] with Dr. Pat. Blood cultures status received. Covert 19 testing in progress. 11/07: Patient has been seen by Dr. Enrique and antibiotics changed to Kefzol. Blood culture is showing no growth after 24 hours. Patient's been afebrile, heart rate 90, blood pressure 109/67. Creatinine 1.08. Coronavirus testing is negative. Patient has been eating very little less and 25-50% on all her meals refused breakfast this morning. Patient states that she is unable to eat due to the excruciating pain in her right shoulder. This pain is radiating into her neck and down to the lumbar area. She states that she is scheduled for an MRI outpatient a week from today. The patient continues to have erythema and warmth to the areas on the left lower leg. Patient requests to be no CODE STATUS. 11/08: Patient appears to be a bit sleepy today she did not even eat her breakfast she stated that the dropped her tray but they never woke her up, and he came into the trachea without her eating anything, she is ready to have lunch today she has no chest pain she complains of increased pain in the right shoulder as well as her left foot however she appears drowsy today and I had discussion her maybe she should cut down on her pain medication at this time we will continue to monitor very closely. She is maintained on Kefzol for IV anabiotic, she had her left lower extremity in an Matthew wrap and I believe overall she is doing much better. 11/09: Patient is laying down in bed she appears to be quite sleepy today she is not moving her arm much and she is going to end up with a frozen shoulder, I had set her up in chair discussed with her to decrease her [place] again to twice a day as needed, and decrease the dosage to 5/325 mg at this point in time, as she is getting more drowsy she is not eating much she did not have breakfast lunch yesterday she did have a bit of her supper she did not eat breakfast today I expected to the patient that she needs to continue with her protein intake in order for her to get better physical therapy evaluation will be done as well as the patient is getting weaker in the hospital. Objective - Vital Signs Vital signs: Vital Signs Temp 99.1 F 11/10/19 07:00 Pulse 79 11/10/19 07:00 Resp 16 11/10/19 07:00 BP 100/64 11/10/19 07:00 Pulse Ox 95 11/10/19 07:00 Intake & Output 11/09/19 11/10/19 11/10/19 18:59 06:59 18:59 Intake Total 160 Balance 160 Intake: IV 160 Sodium Chloride 0.9% 1, 160 000 ml @ 20 mls/hr IV . Q24H [facility] Rx#:[id number] Other: Voiding Method Toilet Toilet # Voids 1 0 - Exam Review of Systems Constitutional: Reports chronic pain, Reports malaise, Reports weakness, Denies anorexia Eyes: denies blurred vision, denies bulging eye, denies decreased vision Ears, nose, mouth and throat: Denies dysphagia, Denies neck lump, Denies sore throat Cardiovascular: Denies chest pain, Denies decreased exercise tolerance, Denies dyspnea on exertion, Denies lightheadedness, Denies orthopnea, Denies shortness of breath, Denies syncope Respiratory: Denies congestion, Denies cough with sputum, Denies home oxygen, Denies sleep apnea, Denies snoring, Denies wheezing Gastrointestinal: Denies abdominal pain, Denies BRBPR, Denies change in bowel habits, Denies dyspepsia, Denies heartburn, Denies melena, Denies nausea, Denies vomiting Genitourinary: Denies dysuria, Denies nocturia Musculoskeletal: Denies gait dysfunction, Denies low back pain Musculoskeletal: left: ankle swelling, right shoulder pain, right shoulder stiffness, absent: ankle pain, ankle stiffness, elbow pain, elbow stiffness, elbow swelling, foot pain, foot stiffness, foot swelling, hand pain, hand stiffness, hand swelling, hip pain, hip stiffness, hip swelling, knee pain, knee stiffness, knee swelling, wrist pain, wrist stiffness, wrist swelling Integumentary: Reports color changes Neurological: Reports weakness, Denies migraines, Denies seizures, Denies tremors, Denies vertigo Psychiatric: Reports anxiety, Reports depression, Denies sadness/tearfulness, Denies sleep disturbances, Denies suicidal ideation Endocrine: Denies fatigue, Denies weight change Physical examination GEN: This is a 64-year-old thin female. She is in bed and appears to be comfortable and in no acute distress. She does complain of significant right shoulder discomfort. HEENT: head is atraumatic normocephalic pupils were equal round reactive to light and accommodations extra ocular muscle movements were intact. Neck: supple , no JVP, no carotid bruits. Chest: decrease breath sounds at the bases with few ronchi , there is no expiratory wheezes or intercostal retractions. Heart: first heart sound is depressed second heart sound is normal there is no gallop or murmur. Abdomen: soft , mild non specific tenderness, there is no rebound or guarding positive bowel sounds. Extremities: there is increased edema and mild erythema with warmth and tenderness to touch, tenderness over the dorsum of the foot, there is no calf tenderness, DP + 2 bilaterally. Neurologic examination: patient is awake alert and oriented X 3 CN II-XII are grossly intact, muscle power 4/5 in bilateral upper and lower extremities, DTR were normal, Babinski's are flexor bilaterally. - Labs CBC & Chem 7: 11/09/19 06:19 11/09/19 06:19 Labs: Microbiology - Last 24 Hours (Table) 11/07/19 07:16 Blood Culture - Preliminary Blood No Growth after 72 hours 11/07/19 07:16 Blood Culture - Preliminary Blood No Growth after 72 hours Assessment and Plan Assessment: Assessment and Plan Plan: 1. Left lower leg cellulitis. Continue IV Kefzol, we will continue with an Matthew wrap, and recheck the patient again next 24 hours hopefully she'll be able to discharge home tomorrow. 2. 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 Continue Folic acid 1 mg orally daily and she has been receiving Erythropoitein through her [employer]. 3. Chronic kidney disease stage 3. Saline lock, continue Sodium bicarb 650 mg orally bid, repeat CMP in AM. 4. History of Lupus anticoagulant. stable. 5. Chronic pancreatitis with chronic pain syndrome. Continue Bentyl. 6. Chronic pain syndrome. Continue Gabapentin 300 mg orally tid. 7. GERD. we will continue with Pepcid 20 mg orally daily. 8. Recurrent depression. Continue Cymbalta 60 mg orally daily. 9. Generalized anxiety disorder. Continue Xanax as needed, aware of the side effects of the treatment and the potential of habitual use. 10. Insomnia. Continue Trazodone 100 mg po at bedtime. 11. Vitamin D deficiency. Continue with vitamin D supplement. 12. History of Multiple sclerosis. Continue with Tizanidine 2 mg orally at bedtime. 13. DVT prophylaxis. we will continue with Heparin 5000 units SC Q 12 H. 14. GI prophylaxis. we will continue with Pepcid. 15. COVID-19 infection not present. 16. Erythema nodosum on the left lower extremity likely related to underlying immune disorder, I discussed with the patient put her on a small dose of penicillin or IV Solu-Medrol however she declined due to the side effects and she stated that she is ALLERGIC to it. 17. Increase activity. 18. Change Broadway 5/325 mg orally 1 tablet orally twice every day, and the physical therapy ventilation. 19. Hopefully home in the next 24 hours.
[2019-11-10] MEDS: SODIUM CHLORIDE 0.9% 1,000 ML IV SCH (11:51)
[2019-11-10] MEDS: HYDROcodone/APAP 5-325MG 1 EACH TAB PO PRN (12:58)
[2019-11-10] MEDS: FAMOTIDINE 20 MG TAB PO SCH (15:44)
[2019-11-10] MEDS: ACETAMINOPHEN TAB 325 MG TAB PO PRN (17:41)
[2019-11-10] MEDS: tiZANidine 4 MG TAB PO SCH (21:19)
[2019-11-10] MEDS: traZODone HCL 50 MG TAB PO SCH (21:20)
--- NOTE | 2019-11-11 00:39 | PN ---
PROGRESS NOTE DATE OF SERVICE: 11/10/2019 REASON FOR FOLLOWUP: Left lower extremity cellulitis. INTERVAL HISTORY: The patient is currently afebrile. The patient is breathing comfortably. The patient denies having any chest pain or shortness of breath or cough. No nausea. No vomiting. No abdominal pain. Pain to the left leg area. PHYSICAL EXAMINATION: Blood pressure 102/65 with a pulse of 81, temperature 98.2. She is 99% on room air. General description is an elderly female lying in bed in no distress. RESPIRATORY SYSTEM: Unlabored breathing, clear to auscultation anteriorly. HEART: S1, S2. Regular rate and rhythm. ABDOMEN: Soft, no tenderness. Left leg is currently wrapped up in Matthew wrap. No drainage on the dressing. LABS: White count normal at 4.7. Blood culture has been negative. DIAGNOSTIC IMPRESSION AND PLAN: Patient with left lower extremity cellulitis, acute overall improvement on cefazolin. White count normalized. Currently on cefazolin to finish therapy with oral Keflex. Continue with supportive care. MMODL / IJN: [id number] /
[2019-11-11] MEDS: HYDROcodone/APAP 5-325MG 1 EACH TAB PO PRN (04:06)
[2019-11-11] MEDS: ACETAMINOPHEN TAB 325 MG TAB PO PRN (07:45)
[2019-11-11] MEDS: DULoxetine HCL 60 MG CAPSULE.DR PO SCH (07:45)
[2019-11-11] MEDS: LOPERAMIDE 2 MG CAP PO SCH (07:45)
[2019-11-11] MEDS: GABAPENTIN 300 MG CAP PO SCH (07:45)
[2019-11-11] MEDS: FOLIC ACID 1 MG TAB PO SCH (07:45)
[2019-11-11] MEDS: ALPRAZolam 0.5 MG TAB PO SCH (07:45)
[2019-11-11] MEDS: LIPASE 5,000/PROTEASE 17,000/AMYLASE 24,000 PO SCH ×2 (07:46→12:07)
[2019-11-11] MEDS: SODIUM BICARBONATE TAB 650 MG TAB PO SCH (07:46)
[2019-11-11] MEDS: HEPARIN SODIUM,PORCINE 5,000 UNIT/ML 1 ML VIAL SQ SCH (07:46)
[2019-11-11] MEDS: MAGNESIUM OXIDE 400 MG TAB PO SCH (07:47)
[2019-11-11] MEDS: DICYCLOMINE 20 MG TAB PO SCH (07:47)
[2019-11-11 08:37] LABS: Basophils % (A) 0 %; Eosinophils # (A) 0.1 k/uL (0-0.7); Eosinophils % (A) 1 %; HCT 25.3 % (34.0-46.0); HGB 7.9 gm/dL (11.4-16.0); Hypochromasia Marked; Lymphocytes # (A) 0.8 k/uL (1.0-4.8); Lymphocytes % (A) 15 %; Mean Platelet Volume 7.4; Monocytes # (A) 0.4 k/uL (0-1.0); Monocytes % (A) 7 %; Neutrophils # (A) 3.9 k/uL (1.3-7.7); Neutrophils % (A) 76 %; Platelet Count 267 k/uL (150-450); RBC 2.62 m/uL (3.80-5.40); RDW 15.9 % (11.5-15.5); WBC 5.2 k/uL (3.8-10.6)
[2019-11-11 08:43] LABS: MCV 96.7 fL (80.0-100.0)
[2019-11-11 08:47] LABS: Calcium 6.9 mg/dL (8.4-10.2); Potassium 3.3 mmol/L (3.5-5.1)
--- NOTE | 2019-11-11 08:53 | P.DS ---
Providers Date of admission: 11/08/19 07:58 Expected date of discharge: 11/11/19 Attending physician: Meseret Haq Consults: 11/06/19 23:17 Consult Physician Routine Consulting Provider: Keri Pat Consult Reason/Comments: cellulitis Do you want consulting provider notified?: Yes Primary care physician: Meseret Haq Hospital Course: This is a 64-year-old female patient of Dr. Haq with history of TIA, chronic pain, lupus anticoagulant, multiple sclerosis, fibromyalgia, chronic kidney disease stage III, anemia of chronic disease, generalized anxiety disorder and recurrent depression, vitamin D deficiency, gastroesophageal reflux disease. 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 Lemos from Hematology and has been receiving treatment, chronic pancreatitis with chronic pain syndromes was on large dose of dilaudid for a long time till I weaned her off. Patient had a recent hospitalization October 19 through October 23 which time she was treated for left lower leg cellulitis, acute kidney injury, left lower lobe atelectasis and mild metabolic encephalopathy. Patient was stabilized and discharged home with home care. Patient presented to the Emergency department at [facility] because of increased pain and redness to the left leg associated with mild fever. No cough, shortness of breath, abdominal pain. Temperature max 100.2, heart rate 91, blood pressure initially 182/81, pulse ox 100% on room air. EKG sinus rhythm and heart rate of [address] changes. WBC 11.4, hemoglobin 8.8, platelet count 291. INR 0.9. Sodium 134, potassium 4.0, chloride 107, CO2 15, BUN 13 and creatinine 0.98, blood sugar 105. Lactic acid 0.8. X-ray of the left ankle negative.. Patient was given 1 dose of vancomycin, admitted to the [facility]Sur floor and consult with Dr. Pat. Blood cultures status received. Covert 19 testing in progress. 11/07: Patient has been seen by Dr. Enrique and antibiotics changed to Kefzol. Blood culture is showing no growth after 24 hours. Patient's been afebrile, heart rate 90, blood pressure 109/67. Creatinine 1.08. Coronavirus testing is negative. Patient has been eating very little less and 25-50% on all her meals refused breakfast this morning. Patient states that she is unable to eat due to the excruciating pain in her right shoulder. This pain is radiating into her neck and down to the lumbar area. She states that she is scheduled for an MRI outpatient a week from today. The patient continues to have erythema and warmth to the areas on the left lower leg. Patient requests to be no CODE STATUS. 11/08: Patient appears to be a bit sleepy today she did not even eat her breakfast she stated that the dropped her tray but they never woke her up, and he came into the trachea without her eating anything, she is ready to have lunch today she has no chest pain she complains of increased pain in the right shoulder as well as her left foot however she appears drowsy today and I had discussion her maybe she should cut down on her pain medication at this time we will continue to monitor very closely. She is maintained on Kefzol for IV anabiotic, she had her left lower extremity in an Matthew wrap and I believe overall she is doing much better. 11/09: Patient is laying down in bed she appears to be quite sleepy today she is not moving her arm much and she is going to end up with a frozen shoulder, I had set her up in chair discussed with her to decrease her [place] again to twice a day as needed, and decrease the dosage to 5/325 mg at this point in time, as she is getting more drowsy she is not eating much she did not have breakfast lunch yesterday she did have a bit of her supper she did not eat breakfast today I expected to the patient that she needs to continue with her protein intake in order for her to get better physical therapy evaluation will be done as well as the patient is getting weaker in the hospital. 11/10: Patient states that she was sitting up in a chair for about 12 hours yesterday. She continues to have significant weakness and the right shoulder pain is impacting her ability to ambulate unable to use a walker. This physical therapy to evaluate the patient today and have recommended subacute rehab. Patient is agreeable to go to [facility]. Erythema to the left lower extremity and foot are much improved. No edema. Dr. Pat has recommended course of Keflex. Patient will be discharged to [facility] today in stable condition. Discharge diagnoses: 1. Left lower leg cellulitis. 2. 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 3. Chronic kidney disease stage 3. 4. History of Lupus anticoagulant. stable. 5. Chronic pancreatitis with chronic pain syndrome. 6. Chronic pain syndrome. 7. GERD. 8. Recurrent depression. 9. Generalized anxiety disorder. 10. Insomnia. 11. Vitamin D deficiency. 12. History of Multiple sclerosis. 13. COVID-19 infection not present. 16. Erythema nodosum on the left lower extremity likely related to underlying immune disorder Discharge plan: Subacute rehab at [facility] under the care of Dr. aHq. Impression and plan of care have been directed as dictated by the signing physician. Annalisa Delcid nurse practitioner acting as scribe for signing physician. Patient Condition at Discharge: Good Plan - Discharge Summary Discharge Rx Participant: Yes New Discharge Prescriptions: New Cephalexin [Keflex] 500 mg PO Q8HR 7 Days #21 cap HYDROcodone/APAP 5-325MG [[place] 5-325] 1 each PO Q12H PRN #6 tab PRN Reason: Pain Gabapentin [Neurontin] 300 mg PO TID #9 cap HYDROcodone/APAP 5-325MG [[place] 5] 1 each PO Q12H PRN #6 tab PRN Reason: Pain Continue Magnesium Oxide [Mag-Ox] 400 mg PO BID Folic Acid 1 mg PO DAILY Ergocalciferol [Vitamin D2 (DRISDOL)] 50,000 unit PO MO DULoxetine HCL [Cymbalta] 60 mg PO DAILY traZODone HCL 150 mg PO HS Dicyclomine [Bentyl] 20 mg PO BID tiZANidine [Zanaflex] 2 mg PO HS Sodium Bicarbonate Tab 650 mg PO BID Albuterol Sulfate [Proair Hfa] 2 puff INHALATION RT-Q4H PRN PRN Reason: Shortness Of Breath Lipase/Protease/Amylase [Zenpep Dr 40,000 Unit Capsule] 80,000 units PO AC- TID Famotidine [Pepcid] 20 mg PO DAILY@1500 Loperamide HCl [Imodium A-D] 2 mg PO TID ALPRAZolam [Xanax] 0.5 mg PO BID #6 tab Discontinued Gabapentin [Neurontin] 300 mg PO TID Discharge Medication List DULoxetine HCL [Cymbalta] 60 mg PO DAILY 05/24/17 [History] Ergocalciferol [Vitamin D2 (DRISDOL)] 50,000 unit PO MO 05/24/17 [History] Folic Acid 1 mg PO DAILY 05/24/17 [History] Magnesium Oxide [Mag-Ox] 400 mg PO BID 05/24/17 [History] traZODone HCL 150 mg PO HS 02/27/18 [History] Dicyclomine [Bentyl] 20 mg PO BID 07/10/18 [History] Albuterol Sulfate [Proair Hfa] 2 puff INHALATION RT-Q4H PRN 10/20/19 [History] Sodium Bicarbonate Tab 650 mg PO BID 10/20/19 [History] tiZANidine [Zanaflex] 2 mg PO HS 10/20/19 [History] Famotidine [Pepcid] 20 mg PO DAILY@1500 11/06/19 [History] Lipase/Protease/Amylase [Zenpep Dr 40,000 Unit Capsule] 80,000 units PO AC-TID 11/06/19 [History] Loperamide HCl [Imodium A-D] 2 mg PO TID 11/06/19 [History] ALPRAZolam [Xanax] 0.5 mg PO BID #6 tab 11/11/19 [Rx] Cephalexin [Keflex] 500 mg PO Q8HR 7 Days #21 cap 11/11/19 [Rx] Gabapentin [Neurontin] 300 mg PO TID #9 cap 11/11/19 [Rx] HYDROcodone/APAP 5-325MG [[place] 5-325] 1 each PO Q12H PRN #6 tab 11/11/19 [Rx] HYDROcodone/APAP 5-325MG [[place] 5] 1 each PO Q12H PRN #6 tab 11/11/19 [Rx] Follow up Appointment(s)/Referral(s): Meseret Haq MD [Primary Care Provider] - 1 Week [facility], [REFERRING] - Discharge Disposition: HOME WITH HOME HEALTH SERVICES
[2019-11-11] MEDS ORDERED: ERGOCALCIFEROL 50,000 UNIT CAP PO SCH (09:00)
[2019-11-11 13:47] VITALS: BP 103/67; PULSE 75; RESP 18; TEMP 98
--- NOTE | 2019-11-11 17:15 | P.PN ---
Progress Note - Text Progress Note Date: 11/11/19 REASON FOR FOLLOWUP: Left leg cellulitis. INTERVAL HISTORY: The patient remains to be afebrile. The patient is breathing comfortably. The patient denies having any chest pain or shortness of breath or cough. The patient denies nausea, vomiting or abdominal pain. Denies pain to the left leg . PHYSICAL EXAMINATION: Blood pressure 103 /67 with a pulse of 75, temperature 98.4. She is 97% on room air. General description is an elderly female lying in bed in no distress. RESPIRATORY SYSTEM: Unlabored breathing. Clear to auscultation anteriorly. HEART: S1, S2. Regular rate and rhythm. ABDOMEN: Soft. No tenderness. Left leg swelling redness improved LABS: Reviewed DIAGNOSTIC IMPRESSION AND PLAN: Patient with acute left lower extremity cellulitis, clinically improved on cefazolin; to finish therapy with oral Keflex 500 mg by mouth 3 times a day for 7 days.
== END 2019-11-11 14:48 | disposition home health service (06) | DRG 602 ==
LOC: EC 19:39 → 4SSUR 23:24 → OBSVTOIN 11-08 07:58
PROVIDERS: ADMIT Internal Medicine; ATTEND Internal Medicine
DX: L03.116 Cellulitis of left lower limb (principal); D60.9 Acquired pure red cell aplasia, unspecified; D68.62 Lupus anticoagulant syndrome; E87.2 Acidosis; F33.9 Major depressive disorder, recurrent, unspecified; K86.1 Other chronic pancreatitis; L52 Erythema nodosum; N18.3 Chronic kidney disease, stage 3 (moderate); E55.9 Vitamin D deficiency, unspecified; F17.200 Nicotine dependence, unspecified, uncomplicated; F41.1 Generalized anxiety disorder; F43.10 Post-traumatic stress disorder, unspecified; G35 Multiple sclerosis; G47.00 Insomnia, unspecified; G89.4 Chronic pain syndrome; J44.9 Chronic obstructive pulmonary disease, unspecified; K21.9 Gastro-esophageal reflux disease without esophagitis; M79.7 Fibromyalgia; M25.511 Pain in right shoulder; Z66 Do not resuscitate; Z11.59 Encounter for screening for other viral diseases; Z79.899 Other long term (current) drug therapy; Z86.73 Personal history of transient ischemic attack (TIA), and cerebral infarction without residual deficits; Z85.028 Personal history of other malignant neoplasm of stomach; Z90.49 Acquired absence of other specified parts of digestive tract; Z88.1 Allergy status to other antibiotic agents; Z88.6 Allergy status to analgesic agent; Z88.0 Allergy status to penicillin; Z91.013 Allergy to seafood; Z88.2 Allergy status to sulfonamides; Z91.018 Allergy to other foods; Z82.49 Family history of ischemic heart disease and other diseases of the circulatory system; Z82.5 Family history of asthma and other chronic lower respiratory diseases; Z83.3 Family history of diabetes mellitus
CPT/HCPCS: 36415; 80048; 80053; 82565; 83605; 85025; 85610; 85730; 86850; 86900; 86901; 87040; 87635; 93005; 96365; 96366; 99285

== ENCOUNTER → 2019-11-29 | Outpatient (CLI) | payer MEDICARE, OTHER ==
[2019-11-30 00:17] LABS: % Iron Saturation 32.09 (12.00-45.00); African American GFR (CKD) 45.3 (60.0-200.0); Albumin 4.1 g/dL (3.80-4.90); Albumin/Globulin Ratio 2.05 (1.60-3.17); Anion Gap 10.5 mmol/L (4.00-12.00); BUN/Creat Ratio 10.71 Ratio (12.00-20.00); Calcium 8.5 mg/dL (8.7-10.3); Carbon Dioxide 22.5 mmol/L (21.6-31.8); Non-African American GFR(CKD) 39.1 (60.0-200.0); Potassium 5.4 mmol/L (3.5-5.5); Total Bilirubin 0.3 mg/dL (0.2-1.2); Total Protein 6.1 g/dL (6.2-8.2)
[2019-11-30 00:21] LABS: Ferritin 256.1 ng/mL (10.0-291.0)
== END | disposition home or self-care (01) ==
LOC: LABWHC1 12:36
PROVIDERS: ATTEND Internal Medicine Hematology & Oncology
DX: D60.9 Acquired pure red cell aplasia, unspecified (principal); J44.9 Chronic obstructive pulmonary disease, unspecified; F32.5 Major depressive disorder, single episode, in full remission; I67.89 Other cerebrovascular disease
CPT/HCPCS: 36415; 80053; 82607; 82728; 83540; 83550; 83921

== ENCOUNTER → 2019-12-17 | Outpatient (CLI) | payer MEDICARE, OTHER ==
--- NOTE | 2019-12-17 12:07 | MR ---
EXAMINATION TYPE: MR shoulder RT wo con DATE OF EXAM: 12/17/2019 COMPARISON: Right shoulder x-ray October 14, 2019 HISTORY: Right Shoulder Pain post Fall end of October TECHNIQUE: Multiplanar, multisequence imaging of the right shoulder is performed without contrast. FINDINGS: Rotator Cuff: Supraspinatus and infraspinatus tendons are intact . Subscapularis tendon is intact. Ro tator cuff muscle bulk is preserved. Acromioclavicular Joint: Moderate narrowing with mild to moderate capsular hypertrophy. Loss of infer ior fat plane-image 15. Type II downsloping acromion. Glenohumeral Joint: Small to moderate size joint effusion with mild narrowing. No significant spurrin g. Labrum: The superior labrum shows diffuse increased signal suggesting degenerative tear for reference coronal image 14. Biceps Tendon: The long head of biceps is in normal location within bicipital groove. Bone marrow signal: No focal abnormal marrow signal is appreciated. Other: Increased fluid signal subdeltoid/subacromial bursa consistent with bursitis. IMPRESSION: No rotator cuff tear is evident. Type II downsloping acromion and AC joint arthropathy fe lt to be causing underlying impingement. Correlate clinically.
== END | disposition home or self-care (01) ==
LOC: RADMRIMAIN 11:07
PROVIDERS: ATTEND Orthopaedic Surgery
DX: M12.811 Other specific arthropathies, not elsewhere classified, right shoulder (principal)

== ENCOUNTER → 2020-01-06 | Outpatient (CLI) | payer MEDICARE, OTHER ==
--- NOTE | 2020-01-06 17:10 | US ---
EXAMINATION TYPE: US venous doppler duplex LE LT DATE OF EXAM: 01/06/2020 5:00 PM COMPARISON: US 10/20/2019 CLINICAL HISTORY: left leg pain M79.605. SIDE PERFORMED: Left TECHNIQUE: The lower extremity deep venous system is examined utilizing real time linear array sonog roxana with graded compression, doppler sonography and color-flow sonography. VESSELS IMAGED: External Iliac Vein (EIV) Common Femoral Vein Deep Femoral Vein Greater Saphenous Vein * Femoral Vein Popliteal Vein Small Saphenous Vein * Proximal Calf Veins (* superficial vessels) Left Leg: Negative for DVT Grayscale, color doppler, spectral doppler imaging performed of the deep veins of the left lower extr emity. There is normal flow, compressibility, vascular waveforms. IMPRESSION: No ultrasound evidence for acute DVT in the left lower extremity. No significant change from prior.
== END | disposition home or self-care (01) ==
LOC: RADUSWWP 16:42
PROVIDERS: ATTEND Internal Medicine
DX: M79.605 Pain in left leg (principal)

== ENCOUNTER → 2020-01-08 | Outpatient (CLI) | payer MEDICARE, OTHER ==
[2020-01-08 14:26] LABS: Anisocytosis Slight; Basophils % (A) 0 %; Eosinophils # (A) 0.1 k/uL (0-0.7); Eosinophils % (A) 2 %; HCT 25.7 % (34.0-46.0); Hypochromasia Slight; Lymphocytes # (A) 0.9 k/uL (1.0-4.8); Lymphocytes % (A) 20 %; MCH 30.6 pg (25.0-35.0); MCV 98.7 fL (80.0-100.0); Macrocytosis Slight; Mean Platelet Volume 7.5; Monocytes # (A) 0.3 k/uL (0-1.0); Monocytes % (A) 6 %; Neutrophils # (A) 3.3 k/uL (1.3-7.7); Neutrophils % (A) 72 %; Platelet Count 203 k/uL (150-450); WBC 4.6 k/uL (3.8-10.6)
[2020-01-09 00:56] LABS: % Iron Saturation 19.11 (12.00-45.00); African American GFR (CKD) 54.5 (60.0-200.0); Albumin 3.6 g/dL (3.80-4.90); Albumin/Globulin Ratio 2.12 (1.60-3.17); Anion Gap 5.8 mmol/L (4.00-12.00); BUN/Creat Ratio 13.33 Ratio (12.00-20.00); Calcium 8.5 mg/dL (8.7-10.3); Carbon Dioxide 26.2 mmol/L (21.6-31.8); Chol/HDL Ratio 1.91; Globulin 1.7 g/dL (1.6-3.3); LDL Cholesterol,Calculated 51.6 mg/dL (0.0-131.0); Non-African American GFR(CKD) 47.1 (60.0-200.0); Potassium 4.5 mmol/L (3.5-5.5); Total Bilirubin 0.2 mg/dL (0.3-1.2); Total Protein 5.3 g/dL (6.2-8.2); VLDL Calculation 12.4 mg/dL (5.00-40.00)
[2020-01-09 01:06] LABS: Ferritin 173.1 ng/mL (10.0-291.0)
[2020-01-09 04:08] LABS: Hemoglobin A1C 4.9 % (4.0-6.0)
== END | disposition home or self-care (01) ==
LOC: LABWHC1 13:06
PROVIDERS: ATTEND Internal Medicine
DX: N18.3 Chronic kidney disease, stage 3 (moderate) (principal); D61.9 Aplastic anemia, unspecified; K86.9 Disease of pancreas, unspecified
CPT/HCPCS: 36415; 80053; 80061; 82306; 82728; 83036; 83540; 83550; 83735; 85025

== ENCOUNTER → 2020-02-26 | Outpatient (CLI) | payer MEDICARE, OTHER ==
[2020-02-26 23:26] LABS: African American GFR (CKD) 54.5 (60.0-200.0); Albumin 4.2 g/dL (3.80-4.90); Albumin/Globulin Ratio 2.33 (1.60-3.17); Anion Gap 9.9 mmol/L (4.00-12.00); BUN/Creat Ratio 31.67 Ratio (12.00-20.00); Calcium 9.1 mg/dL (8.7-10.3); Carbon Dioxide 19.1 mmol/L (21.6-31.8); Globulin 1.8 g/dL (1.6-3.3); Magnesium 1.9 mg/dL (1.5-2.4); Non-African American GFR(CKD) 47.1 (60.0-200.0); Potassium 4.3 mmol/L (3.5-5.5); Total Bilirubin 0.2 mg/dL (0.3-1.2)
== END | disposition home or self-care (01) ==
LOC: LABWHC1 15:13
PROVIDERS: ATTEND Internal Medicine
DX: N18.3 Chronic kidney disease, stage 3 (moderate) (principal)
CPT/HCPCS: 36415; 80053; 83735

== ENCOUNTER → 2020-05-13 | Outpatient (CLI) | payer MEDICARE, OTHER ==
[2020-05-13 18:49] LABS: African American GFR (CKD) 45.3 (60.0-200.0); Albumin 4.7 g/dL (3.80-4.90); Albumin/Globulin Ratio 2.35 (1.60-3.17); Anion Gap 11.4 mmol/L (4.00-12.00); BUN/Creat Ratio 28.57 Ratio (12.00-20.00); Calcium 9.8 mg/dL (8.7-10.3); Carbon Dioxide 21.6 mmol/L (21.6-31.8); Chol/HDL Ratio 2.82; LDL Cholesterol,Calculated 104.6 mg/dL (0.0-131.0); Non-African American GFR(CKD) 39.1 (60.0-200.0); Phosphorus 4.3 mg/dL (2.4-5.1); Potassium 4.4 mmol/L (3.5-5.5); Total Bilirubin 0.4 mg/dL (0.2-1.2); Total Protein 6.7 g/dL (6.2-8.2); VLDL Calculation 24.4 mg/dL (5.00-40.00)
== END | disposition home or self-care (01) ==
LOC: LABWHC1 13:27
PROVIDERS: ATTEND Internal Medicine
DX: Z00.00 Encounter for general adult medical examination without abnormal findings (principal); E55.9 Vitamin D deficiency, unspecified; N18.30 Chronic kidney disease, stage 3 unspecified
CPT/HCPCS: 36415; 80053; 80061; 82306; 83735; 83970; 84100; 84443

== ENCOUNTER → 2020-05-20 | Outpatient (CLI) | payer MEDICARE, OTHER ==
--- NOTE | 2020-05-20 14:06 | CTL ---
EXAMINATION TYPE: CT Low Dose Lung DATE OF EXAM ORDERED: 05/20/2020 HISTORY: Long-term tobacco use. Lung cancer screening CT DLP: [address]DI: 1.73 mGy Automated exposure control for dose reduction was used. SCREENING VISIT: Initial study COMPARISON: None. TECHNIQUE: Low dose computed tomography scan was performed through the chest at 1 mm thick sections a nd reconstructed images in the coronal plane at [address] DIAGNOSTIC QUALITY: Satisfactory FINDINGS: LUNG NODULES: Present, detailed below: There is 9 x 6 mm semisolid nodule right upper lobe axial image 109. Smaller irregular groundglass opacity or nodule measuring 8 x 6 mm posterior right upper lobe axial i mage 55. Additional faint subcentimeter areas of groundglass opacity in the right upper lung. For ref erence 1.0 cm groundglass opacity superior right lower lobe coronal image 152 series 6. LUNGS: COPD: Severity: Mild Fibrosis: Severity: Mild right apical Lymph nodes: None. Other findings: None BILATERAL PLEURAL SPACE: Effusion: None Calcification: None Thickening: Mild focal thickening lateral right mid lung coronal image 30 Pneumothorax: None HEART: Heart Size: Normal Coronary calcification: Moderate RCA distribution Pericardial effusion: None OTHER FINDINGS: Upper abdomen: None Bony thorax: Exaggerated thoracic kyphosis. Scoliotic curvature on coronal images. Supraclavicular region: None Other: None IMPRESSION: Mild emphysematous change with scattered small groundglass opacities or groundglass nodul es as detailed above. Early acute infectious process cannot be excluded. Correlate clinically. CT LUNG RAD AND CT CHEST RECOMMENDATION: Lung-Rad 2 Benign Appearance or Behavior: Continue annual sc reening with LDCT in 12 months. S Modifier (other clinically significant findings): S Correlate for acute infectious process including early atypical infection.
== END | disposition home or self-care (01) ==
LOC: RADCTMAIN 12:59
PROVIDERS: ATTEND Internal Medicine
DX: Z12.2 Encounter for screening for malignant neoplasm of respiratory organs (principal); J43.9 Emphysema, unspecified; R91.1 Solitary pulmonary nodule; F17.210 Nicotine dependence, cigarettes, uncomplicated

== ENCOUNTER → 2020-06-15 | Outpatient (CLI) | payer MEDICARE, OTHER ==
[2020-06-15 13:44] LABS: Basophils % (A) 1 %; Eosinophils # (A) 0.1 k/uL (0-0.7); Eosinophils % (A) 3 %; HCT 31.1 % (34.0-46.0); HGB 10.2 gm/dL (11.4-16.0); Lymphocytes # (A) 1.4 k/uL (1.0-4.8); Lymphocytes % (A) 29 %; MCH 32.5 pg (25.0-35.0); MCHC 32.7 g/dL (31.0-37.0); MCV 99.5 fL (80.0-100.0); Monocytes # (A) 0.2 k/uL (0-1.0); Monocytes % (A) 4 %; Neutrophils # (A) 2.9 k/uL (1.3-7.7); Neutrophils % (A) 63 %; Platelet Count 327 k/uL (150-450); RBC 3.13 m/uL (3.80-5.40); RDW 13.9 % (11.5-15.5); WBC 4.7 k/uL (3.8-10.6)
[2020-06-15 14:38] LABS: Total Bilirubin 0.4 mg/dL (0.2-1.3); Total Protein 6.3 g/dL (6.3-8.2)
--- NOTE | 2020-06-15 16:14 | CT ---
EXAMINATION TYPE: CT abdomen pelvis w con DATE OF EXAM: 06/15/2020 COMPARISON: 04/20/2018 HISTORY: 64-year-old female K57.32, Abdominal pain. TECHNIQUE: Contiguous axial scanning of the abdomen and pelvis following administration of 100 ml Iso juani 300 IV contrast. Delayed images through the kidneys and coronal/sagittal reconstructions perform ed. CT DLP: 502.3 mGycm Automated exposure control for dose reduction was used. FINDINGS: Heart normal size without pericardial effusion. Lung bases clear without pleural effusion. Circumferential wall thickening distal esophagus, axial image 9. No focal liver lesion. Portal venous system is patent. Main pancreatic duct dilated up to 6 mm versus approximately 4 mm in retrospect on 04/20/2018. Adrenal glands and spleen within normal limits. Subcentimeter hypodensity medial upper pole right kid neli too small for accurate CT characterization, probable cyst. Bilateral extrarenal pelves. There is some thickening along the midline infraumbilical anterior abdominal wall, probable scarring. There is some distortion and clustered in the small bowel directly deep to this area with segmental narrowing and dilatation up to 5.2 cm. Oral contrast has made its way into the colon which is diffuse ly dilated. Ascending colon measures 8.0 cm, transverse colon measures up to 8.0 cm, descending colon measures up to 6.6 cm in sigmoid colon measures up to 5.9 cm. Moderate overall stool burden. Bladder urine distended. Uterus and ovaries not clearly seen. No abdominal or pelvic lymphadenopathy seen. Bones: Percutaneous pinning right femoral neck. Posterior fusion hardware L5-S1. IMPRESSION: 1. PANCOLONIC DILATATION UP TO 8.0 CM WITH MODERATE OVERALL STOOL. ORAL CONTRAST HAS MADE ITS WAY TO THE RECTUM, findings argue against mechanical obstruction as the etiology. Consider a generalized colonic ileus or other processes such as [place] syndrome. 2. Thickening along the anterior infraumbilical midline abdominal wall. Underlying small bowel loops contacting the abdominal wall here are distorted with segments of narrowing and dilatation. A dilated small bowel loop measures up to 5.2 cm. Distortion from postsurgical adhesions and segments of relat alisa partial obstruction are a consideration. 3. Main pancreatic duct dilated up to 6 mm versus approximately 4 mm in retrospect in 2018. Main duct IPMN or sequela of prior episodes of pancreatitis are differential considerations. Consider further GI evaluation. 4. Circumferential wall thickening of the distal esophagus could be due to underdistention or esophag itis.
== END | disposition home or self-care (01) ==
LOC: RADCTMAIN 12:56
PROVIDERS: ATTEND Internal Medicine
DX: K59.39 Other megacolon (principal); K63.89 Other specified diseases of intestine; K86.89 Other specified diseases of pancreas; R93.5 Abnormal findings on diagnostic imaging of other abdominal regions, including retroperitoneum; K57.32 Diverticulitis of large intestine without perforation or abscess without bleeding
CPT/HCPCS: 80053; 83605; 85025; 74177; 36415; Q9967

== ENCOUNTER 2020-06-22 14:33 | Inpatient (IN) | payer MEDICARE, OTHER ==
[2020-06-22] MEDS ORDERED: ONDANSETRON 4 MG/2 ML VIAL IVP STA (15:09)
[2020-06-22] MEDS ORDERED: SODIUM CHLORIDE 0.9% 1,000 ML IV STA (15:09)
[2020-06-22] MEDS ORDERED: MORPHINE SULFATE 4 MG/ML SYRINGE IV STA (15:09)
[2020-06-22] MEDS ORDERED: PANTOPRAZOLE 40 MG/10 ML VIAL IVP STA (15:09)
[2020-06-22] MEDS ORDERED: ONDANSETRON 4 MG/2 ML VIAL IVP PRN (15:11)
[2020-06-22] MEDS ORDERED: NALOXONE 0.4 MG/ML 1 ML VIAL IV PRN (15:11)
[2020-06-22] MEDS ORDERED: HYDROmorphone 1 MG/ML 1 ML SYRINGE IVP PRN (15:11)
--- NOTE | 2020-06-22 15:11 | ED ---
General Adult HPI - General Chief complaint: Abdominal Pain Stated complaint: Abd Pain, Weight Gain Time Seen by Provider: 06/22/20 14:35 Source: patient, RN/MD, RN notes reviewed Mode of arrival: ambulatory Limitations: no limitations - History of Present Illness Initial comments: Patient is a pleasant 64-year-old female presenting to the emergency Department with abdominal discomfort. Symptoms have progressed over the past couple of weeks. Patient has history of multiple previous bowel obstruction. Patient did have computed tomography scan done 1 week ago. Patient is having nausea with some minimal vomiting. Patient has had some intermittent constipation. Patient feels her abdomen is distended. Patient did see Dr. Haq prior to arrival and was recommended to come to the hospital. - Related Data Home Medications Medication Instructions Recorded Confirmed DULoxetine HCL [Cymbalta] 60 mg PO DAILY 05/24/17 11/06/19 Ergocalciferol [Vitamin D2 50,000 unit PO MO 05/24/17 11/06/19 (DRISDOL)] Folic Acid 1 mg PO DAILY 05/24/17 11/06/19 Magnesium Oxide [Mag-Ox] 400 mg PO BID 05/24/17 11/06/19 traZODone HCL 150 mg PO HS 02/27/18 11/06/19 Dicyclomine [Bentyl] 20 mg PO BID 07/10/18 11/06/19 Albuterol Sulfate [Proair Hfa] 2 puff INHALATION RT-Q4H PRN 10/20/19 11/06/19 Sodium Bicarbonate Tab 650 mg PO BID 10/20/19 11/06/19 tiZANidine [Zanaflex] 2 mg PO HS 10/20/19 11/06/19 Famotidine [Pepcid] 20 mg PO DAILY@1500 11/06/19 11/06/19 Lipase/Protease/Amylase [Zenpep Dr 80,000 units PO AC-TID 11/06/19 11/06/19 40,000 Unit Capsule] Loperamide HCl [Imodium A-D] 2 mg PO TID 11/06/19 11/06/19 Previous Rx's Medication Instructions Recorded ALPRAZolam [Xanax] 0.5 mg PO BID #6 tab 11/11/19 Cephalexin [Keflex] 500 mg PO Q8HR 7 Days #21 cap 11/11/19 Gabapentin [Neurontin] 300 mg PO TID #9 cap 11/11/19 HYDROcodone/APAP 5-325MG [[place] 1 each PO Q12H PRN #6 tab 11/11/19 5-325] HYDROcodone/APAP 5-325MG [[place] 5] 1 each PO Q12H PRN #6 tab 11/11/19 Allergies Allergy/AdvReac Type Severity Reaction Status Date / Time alcohol Allergy Unknown Verified 11/06/19 22:35 aspirin Allergy Unknown Verified 11/06/19 22:35 divalproex sodium Allergy Unknown Verified 11/06/19 22:35 [From Depakote] erythromycin base Allergy Unknown Verified 11/06/19 22:35 ketorolac [From Toradol] Allergy Unknown Verified 11/06/19 22:35 Penicillins Allergy Unknown Verified 11/06/19 22:35 shellfish derived [Shellfish] Allergy Unknown Verified 11/06/19 22:35 strawberry Allergy Unknown Verified 11/06/19 22:35 Sulfa (Sulfonamide Allergy Unknown Verified 11/06/19 22:35 Antibiotics) Review of Systems ROS Statement: Those systems with pertinent positive or pertinent negative responses have been documented in the HPI. ROS Other: All systems not noted in ROS Statement are negative. Constitutional: Denies: fever Eyes: Denies: eye pain ENT: Denies: ear pain Respiratory: Denies: cough, dyspnea Cardiovascular: Denies: chest pain Endocrine: Denies: fatigue Gastrointestinal: Reports: as per HPI, abdominal pain, nausea, vomiting Genitourinary: Denies: dysuria Musculoskeletal: Denies: back pain Skin: Denies: rash Neurological: Denies: weakness Past Medical History Past Medical History: Cancer, COPD, CVA/TIA, Fibromyalgia Additional Past Medical History / Comment(s): Lupus, TIA, right hand tendons severed, closed head injury, multiple sclerosis History of Any Multi-Drug Resistant Organisms: C-DIFF Date of last positivie culture/infection: 2014 MDRO Source:: patient Past Surgical History: Appendectomy, Back Surgery, Section, Orthopedic Surgery Additional Past Surgical History / Comment(s): stomach cancer Past Anesthesia/Blood Transfusion Reactions: No Reported Reaction Past Psychological History: Anxiety, Bipolar, Depression, PTSD Past Alcohol Use History: None Reported Past Drug Use History: None Reported - Past Family History Father Additional Family Medical History / Comment(s): Father has history of diabetes and stomach problems. Mother Additional Family Medical History / Comment(s): Mother has history of diabetes, coronary artery disease and COPD. Sister(s) Additional Family Medical History / Comment(s): Patient has sisters all have female problems. She does state there is breast cancer history in her aunt. Son(s) Family Medical History: No Reported History Additional Family Medical History / Comment(s): Patient has one son with no major medical problems. General Exam Limitations: no limitations General appearance: alert, in no apparent distress Head exam: Present: normocephalic Eye exam: Present: normal appearance Neck exam: Present: normal inspection Respiratory exam: Present: normal lung sounds bilaterally Cardiovascular Exam: Present: regular rate, normal rhythm GI/Abdominal exam: Present: distended (Mildly distended), tenderness (Mild to moderate diffuse tenderness), normal bowel sounds. Absent: guarding, pulsatile mass Extremities exam: Present: normal inspection Neurological exam: Present: alert Psychiatric exam: Present: normal affect, normal mood Skin exam: Present: normal color Course Vital Signs 06/22/20 14:36 Temperature 97.7 F Pulse Rate 82 Respiratory 18 Rate Blood Pressure 147/74 O2 Sat by Pulse 100 Oximetry Medical Decision Making - Medical Decision Making Case was discussed with Dr. Haq who did see this patient and would like her admitted with consult with Dr. Fernandez who is previously seen the patient. He does not feel computed tomography scan needed at this time secondary to just having one less than [address] Guaman has been paged for consult. Case was discussed with Dr. Fernandez, who will consult Disposition Clinical Impression: Abdominal pain Disposition: ADMITTED IP TO THIS HOSP Is patient prescribed a controlled substance at d/c from ED?: No Referrals: Meseret Haq MD [Primary Care Provider] - 1-2 days
[2020-06-22 15:37] LABS: Basophils % (A) 0 %; Eosinophils # (A) 0.1 k/uL (0-0.7); Eosinophils % (A) 1 %; HCT 27.4 % (34.0-46.0); HGB 9.1 gm/dL (11.4-16.0); Lymphocytes # (A) 0.9 k/uL (1.0-4.8); Lymphocytes % (A) 16 %; MCH 33.2 pg (25.0-35.0); MCHC 33.3 g/dL (31.0-37.0); MCV 99.8 fL (80.0-100.0); Mean Platelet Volume 6.6; Monocytes # (A) 0.3 k/uL (0-1.0); Monocytes % (A) 5 %; Neutrophils # (A) 4.5 k/uL (1.3-7.7); Neutrophils % (A) 77 %; Platelet Count 261 k/uL (150-450); RBC 2.75 m/uL (3.80-5.40); RDW 13.9 % (11.5-15.5); WBC 5.8 k/uL (3.8-10.6)
[2020-06-22] MEDS: SODIUM CHLORIDE 0.9% 1,000 ML IV SCH (15:38)
[2020-06-22 15:49] LABS: Albumin 3.6 g/dL (3.5-5.0); Calcium 8.9 mg/dL (8.4-10.2); Potassium 5.3 mmol/L (3.5-5.1); Total Bilirubin 0.5 mg/dL (0.2-1.3)
--- NOTE | 2020-06-22 15:55 | XR ---
EXAMINATION TYPE: XR KUB DATE OF EXAM: 06/22/2020 3:48 PM CLINICAL HISTORY: Abdominal pain. TECHNIQUE: Two Upright KUB images of the abdomen are obtained. COMPARISON: CT 1 week ago. FINDINGS: Prominent bowel loops with air-fluid levels though the central to lower abdomen and upper p ludivina. Gas and fecal material seen in prominent left-sided colonic loops extending into pelvis. Lung bases remain clear. Surgical changes lumbosacral junction and proximal right femur are redemonstrated . No pneumoperitoneum. IMPRESSION: Overall nonspecific but favor nonobstructive bowel gas pattern remains present. Worsening mid to distal moderate colonic fecal stasis noted.
[2020-06-22 16:12] LABS: INR 0.9 (<1.2); Prothrombin Time 9.5 sec (9.0-12.0)
--- NOTE | 2020-06-22 16:42 | P.GSCN ---
History of Present Illness Consult date: 06/22/20 Reason for Consult: Abdominal pain History of present illness: The patient is a 64-year-old female well-known to me. [facility] with [facility] pain. The patient's been having intermittent abdominal pain for several weeks to month. She had a computed tomography scan performed 1 week ago which showed dilated loops of bowel but no the patient has a history of multiple abdominal surgeries and short bowel syndrome. Her last EGD and colonoscopy was done by myself in 2017. Has not had abdominal surgeries in many years. The patient was having chronic diarrhea 2017. She was seen by gastroenterology for some chronic and created insufficiency. She's been on medication for that and also been fairly normal. Lately she'll have some intermittent constipation with loose stools. Denies Blood in the stool or dark tarry stool. The patient hasn't been eating well lately. She is gaining weight and complaining of abdominal distention. Slight nausea no vomiting. Review of Systems All systems: negative Past Medical History Past Medical History: Cancer, COPD, CVA/TIA, Fibromyalgia Additional Past Medical History / Comment(s): Lupus, TIA, right hand tendons severed, closed head injury, multiple sclerosis, short bowel syndrome, pancreatic insufficiency History of Any Multi-Drug Resistant Organisms: C-DIFF Year Discovered:: 2014 MDRO Source:: patient Past Surgical History: Appendectomy, Back Surgery, Section, Orthopedic Surgery Additional Past Surgical History / Comment(s): stomach cancer, right hemicolectomy and small bowel resection Past Anesthesia/Blood Transfusion Reactions: No Reported Reaction Past Psychological History: Anxiety, Bipolar, Depression, PTSD Past Alcohol Use History: None Reported Past Drug Use History: None Reported - Past Family History Father Additional Family Medical History / Comment(s): Father has history of diabetes and stomach problems. Mother Additional Family Medical History / Comment(s): Mother has history of diabetes, coronary artery disease and COPD. Sister(s) Additional Family Medical History / Comment(s): Patient has sisters all have female problems. She does state there is breast cancer history in her aunt. Son(s) Family Medical History: No Reported History Additional Family Medical History / Comment(s): Patient has one son with no major medical problems. Medications and Allergies Home Medications Medication Instructions Recorded Confirmed Type DULoxetine HCL [Cymbalta] 60 mg PO DAILY 05/24/17 11/06/19 History Ergocalciferol [Vitamin D2 50,000 unit PO MO 05/24/17 11/06/19 History (DRISDOL)] Folic Acid 1 mg PO DAILY 05/24/17 11/06/19 History Magnesium Oxide [Mag-Ox] 400 mg PO BID 05/24/17 11/06/19 History traZODone HCL 150 mg PO HS 02/27/18 11/06/19 History Dicyclomine [Bentyl] 20 mg PO BID 07/10/18 11/06/19 History Albuterol Sulfate [Proair Hfa] 2 puff INHALATION RT-Q4H PRN 10/20/19 11/06/19 History Sodium Bicarbonate Tab 650 mg PO BID 10/20/19 11/06/19 History tiZANidine [Zanaflex] 2 mg PO HS 10/20/19 11/06/19 History Famotidine [Pepcid] 20 mg PO DAILY@1500 11/06/19 11/06/19 History Lipase/Protease/Amylase [Zenpep Dr 80,000 units PO AC-TID 11/06/19 11/06/19 History 40,000 Unit Capsule] Loperamide HCl [Imodium A-D] 2 mg PO TID 11/06/19 11/06/19 History ALPRAZolam [Xanax] 0.5 mg PO BID #6 tab 11/11/19 Rx Cephalexin [Keflex] 500 mg PO Q8HR 7 Days #21 cap 11/11/19 Rx Gabapentin [Neurontin] 300 mg PO TID #9 cap 11/11/19 Rx HYDROcodone/APAP 5-325MG [[place] 1 each PO Q12H PRN #6 tab 11/11/19 Rx 5-325] HYDROcodone/APAP 5-325MG [[place] 5] 1 each PO Q12H PRN #6 tab 11/11/19 Rx Allergies Allergy/AdvReac Type Severity Reaction Status Date / Time alcohol Allergy Unknown Verified 11/06/19 22:35 aspirin Allergy Unknown Verified 11/06/19 22:35 divalproex sodium Allergy Unknown Verified 11/06/19 22:35 [From Depakote] erythromycin base Allergy Unknown Verified 11/06/19 22:35 ketorolac [From Toradol] Allergy Unknown Verified 11/06/19 22:35 Penicillins Allergy Unknown Verified 11/06/19 22:35 shellfish derived [Shellfish] Allergy Unknown Verified 11/06/19 22:35 strawberry Allergy Unknown Verified 11/06/19 22:35 Sulfa (Sulfonamide Allergy Unknown Verified 11/06/19 22:35 Antibiotics) Surgical - Exam Osteopathic Statement: *. No significant issues noted on an osteopathic structural exam other than those noted in the History and Physical/Consult. Vital Signs Temp Pulse Resp BP Pulse Ox 97.7 F 82 18 147/74 100 06/22/20 14:36 06/22/20 14:36 06/22/20 14:36 06/22/20 14:36 06/22/20 14:36 - General well developed, no distress - Eyes normal ocular movement - ENT normal mucosa - Neck trachea midline - Respiratory normal respiratory effort - Cardiovascular Abnormal Heart Sounds: systolic murmur - Abdomen Abdomen: tender (Mild epigastric tenderness without guarding or rebound), distended (Softly distendedly ) Results - Labs 06/22/20 15:32 06/22/20 15:32 Abnormal Lab Results - Last 24 Hours (Table) 06/22/20 06/22/20 06/22/20 Range/Units 15:32 15:32 15:32 RBC 2.75 L (3.80-5.40) m/uL Hgb 9.1 L (11.4-16.0) gm/dL Hct 27.4 L (34.0-46.0) % Lymphocytes # 0.9 L (1.0-4.8) k/uL APTT 21.0 L (22.0-30.0) sec Sodium 133 L (137-145) mmol/L Potassium 5.3 H (3.5-5.1) mmol/L BUN 25 H (7-17) mg/dL Creatinine 1.34 H (0.52-1.04) mg/dL Total Protein 6.0 L (6.3-8.2) g/dL Diabetes panel 06/22/20 Range/Units 15:32 Sodium 133 L (137-145) mmol/L Potassium 5.3 H (3.5-5.1) mmol/L Chloride 104 (98-107) mmol/L Carbon Dioxide 27 (22-30) mmol/L BUN 25 H (7-17) mg/dL Creatinine 1.34 H (0.52-1.04) mg/dL Glucose 98 (74-99) mg/dL Calcium 8.9 (8.4-10.2) mg/dL AST 26 (14-36) U/L ALT 10 (4-34) U/L Alkaline Phosphatase 47 (38-126) U/L Total Protein 6.0 L (6.3-8.2) g/dL Albumin 3.6 (3.5-5.0) g/dL Calcium panel 06/22/20 Range/Units 15:32 Calcium 8.9 (8.4-10.2) mg/dL Albumin 3.6 (3.5-5.0) g/dL Pituitary panel 06/22/20 Range/Units 15:32 Sodium 133 L (137-145) mmol/L Potassium 5.3 H (3.5-5.1) mmol/L Chloride 104 (98-107) mmol/L Carbon Dioxide 27 (22-30) mmol/L BUN 25 H (7-17) mg/dL Creatinine 1.34 H (0.52-1.04) mg/dL Glucose 98 (74-99) mg/dL Calcium 8.9 (8.4-10.2) mg/dL Adrenal panel 06/22/20 Range/Units 15:32 Sodium 133 L (137-145) mmol/L Potassium 5.3 H (3.5-5.1) mmol/L Chloride 104 (98-107) mmol/L Carbon Dioxide 27 (22-30) mmol/L BUN 25 H (7-17) mg/dL Creatinine 1.34 H (0.52-1.04) mg/dL Glucose 98 (74-99) mg/dL Calcium 8.9 (8.4-10.2) mg/dL Total Bilirubin 0.5 (0.2-1.3) mg/dL AST 26 (14-36) U/L ALT 10 (4-34) U/L Alkaline Phosphatase 47 (38-126) U/L Total Protein 6.0 L (6.3-8.2) g/dL Albumin 3.6 (3.5-5.0) g/dL - Imaging Abdominal x-ray: report reviewed, image reviewed (Significant air and a small amount of stool in the colon) CT scan - abdomen: report reviewed, image reviewed (CT from last week was personally reviewed. There are some chronic dilation of the large and small intestine with no obvious obstruction. The colon is typically chronically distended in this patient.) Assessment and Plan (1) Short bowel syndrome Current Visit: Yes Status: Chronic Code(s): K91.2 - POSTSURGICAL MALABSORPTION, NOT ELSEWHERE CLASSIFIED SNOMED Code(s): 71892271 (2) Abdominal pain Current Visit: Yes Status: Acute Code(s): R10.9 - UNSPECIFIED ABDOMINAL PAIN SNOMED Code(s): 04118898 Plan: There doesn't seem to be an acute obstructive process. The abdomen is distended, and this seems to be mainly colonic distention. I would recommend bowel rest, serial exams. I will order a suppository to try and stimulate colon decompression. Will follow with you. Further recommendations to follow
[2020-06-22] MEDS ORDERED: ERGOCALCIFEROL 50,000 UNIT CAP PO SCH (18:15)
[2020-06-22] MEDS: HYDROmorphone 0.5 MG/0.5 ML SYRINGE IVP PRN (21:29)
[2020-06-22] MEDS: ALPRAZolam 0.5 MG TAB PO SCH (21:34)
[2020-06-22] MEDS: GABAPENTIN 300 MG CAP PO SCH (21:34)
[2020-06-22] MEDS: tiZANidine 4 MG TAB PO SCH (21:54)
[2020-06-22] MEDS: SODIUM BICARBONATE TAB 650 MG TAB PO SCH (21:54)
[2020-06-23] MEDS: SODIUM CHLORIDE 0.9% 1,000 ML IV SCH ×3 (00:20→14:53)
[2020-06-23] MEDS: HYDROmorphone 0.5 MG/0.5 ML SYRINGE IVP PRN ×3 (01:57→23:48)
[2020-06-23] MEDS: HEPARIN SODIUM,PORCINE 5,000 UNIT/ML 1 ML VIAL SQ SCH ×3 (02:02→14:50)
[2020-06-23 07:39] LABS: Basophils % (A) 1 %; Eosinophils # (A) 0.1 k/uL (0-0.7); Eosinophils % (A) 1 %; HCT 25.9 % (34.0-46.0); HGB 8.4 gm/dL (11.4-16.0); Hypochromasia Slight; Lymphocytes # (A) 1.3 k/uL (1.0-4.8); Lymphocytes % (A) 29 %; MCH 33.4 pg (25.0-35.0); MCHC 32.3 g/dL (31.0-37.0); MCV 103.4 fL (80.0-100.0); Macrocytosis Slight; Mean Platelet Volume 6.7; Monocytes # (A) 0.2 k/uL (0-1.0); Monocytes % (A) 5 %; Neutrophils # (A) 2.8 k/uL (1.3-7.7); Neutrophils % (A) 62 %; Platelet Count 238 k/uL (150-450); RBC 2.51 m/uL (3.80-5.40); RDW 13.7 % (11.5-15.5); WBC 4.5 k/uL (3.8-10.6)
[2020-06-23] MEDS: FOLIC ACID 1 MG TAB PO SCH (08:18)
[2020-06-23] MEDS: SODIUM BICARBONATE TAB 650 MG TAB PO SCH ×2 (08:18→20:39)
[2020-06-23] MEDS: DULoxetine HCL 60 MG CAPSULE.DR PO SCH (08:18)
[2020-06-23] MEDS: PANTOPRAZOLE 40 MG/10 ML VIAL IV SCH (08:18)
[2020-06-23] MEDS: GABAPENTIN 300 MG CAP PO SCH ×3 (08:18→20:39)
[2020-06-23] MEDS: ALPRAZolam 0.5 MG TAB PO SCH ×2 (08:18→20:39)
[2020-06-23] MEDS: amLODIPine 5 MG TAB PO SCH (08:25)
[2020-06-23] MEDS ORDERED: bisacodyL 10 MG SUPP RECTAL STA (09:05)
[2020-06-23 10:56] LABS: African American GFR (CKD) 49.5 (60.0-200.0); Albumin 3.3 g/dL (3.80-4.90); Albumin/Globulin Ratio 2.54 (1.60-3.17); Anion Gap 3.4 mmol/L (4.00-12.00); BUN/Creat Ratio 17.69 Ratio (12.00-20.00); Calcium 8.4 mg/dL (8.7-10.3); Carbon Dioxide 27.6 mmol/L (21.6-31.8); Globulin 1.3 g/dL (1.6-3.3); Non-African American GFR(CKD) 42.7 (60.0-200.0); Potassium 5.3 mmol/L (3.5-5.5); Total Bilirubin 0.2 mg/dL (0.3-1.2); Total Protein 4.6 g/dL (6.2-8.2)
--- NOTE | 2020-06-23 14:25 | P.PN ---
Subjective Progress Note Date: 06/23/20 The patient is seen on rounds. Still having some abdominal pain. She did have a BM and passed a large amount of flatus with the suppository. Denies nausea or vomiting. Does want something to drink. Objective - Vital Signs Vital signs: Vital Signs Temp 98.6 F 06/23/20 06:44 Pulse 69 06/23/20 07:51 Resp 17 06/23/20 07:51 BP 97/57 06/23/20 06:44 Pulse Ox 92 L 06/23/20 06:44 Intake & Output 06/22/20 06/23/20 06/23/20 18:59 06:59 18:59 Weight 59.421 kg Other: Voiding Method Toilet # Voids 1 - Constitutional General appearance: Present: cooperative, no acute distress - Respiratory Respiratory: bilateral: CTA - Gastrointestinal General gastrointestinal: Present: distended (The distention and tympany to percussion have resolved), normal bowel sounds, soft, tenderness (mild generalized tenderness without guarding or rebound. Improved from yesterday) - Labs CBC & Chem 7: 06/23/20 07:20 06/23/20 07:20 Labs: Abnormal Lab Results - Last 24 Hours (Table) 06/22/20 06/22/20 06/22/20 Range/Units 15:32 15:32 15:32 RBC 2.75 L (3.80-5.40) m/uL Hgb 9.1 L (11.4-16.0) gm/dL Hct 27.4 L (34.0-46.0) % MCV (80.0-100.0) fL Lymphocytes # 0.9 L (1.0-4.8) k/uL APTT 21.0 L (22.0-30.0) sec Sodium 133 L (137-145) mmol/L Potassium 5.3 H (3.5-5.1) mmol/L Anion Gap (4.00-12.00) mmol/L BUN 25 H (7-17) mg/dL Creatinine 1.34 H (0.52-1.04) mg/dL Est GFR (CKD-EPI)AfAm (60.0-200.0) Est GFR (CKD-EPI)NonAf (60.0-200.0) Calcium (8.7-10.3) mg/dL Total Bilirubin (0.3-1.2) mg/dL Total Protein 6.0 L (6.3-8.2) g/dL Albumin (3.80-4.90) g/dL Globulin (1.6-3.3) g/dL 06/23/20 06/23/20 Range/Units 07:20 07:20 RBC 2.51 L (3.80-5.40) m/uL Hgb 8.4 L (11.4-16.0) gm/dL Hct 25.9 L (34.0-46.0) % MCV 103.4 H (80.0-100.0) fL Lymphocytes # (1.0-4.8) k/uL APTT (22.0-30.0) sec Sodium (137-145) mmol/L Potassium (3.5-5.1) mmol/L Anion Gap 3.40 L (4.00-12.00) mmol/L BUN (7-17) mg/dL Creatinine (0.52-1.04) mg/dL Est GFR (CKD-EPI)AfAm 49.5 L (60.0-200.0) Est GFR (CKD-EPI)NonAf 42.7 L (60.0-200.0) Calcium 8.4 L (8.7-10.3) mg/dL Total Bilirubin 0.2 L (0.3-1.2) mg/dL Total Protein 4.6 L (6.3-8.2) g/dL Albumin 3.30 L (3.80-4.90) g/dL Globulin 1.3 L (1.6-3.3) g/dL Assessment and Plan (1) Short bowel syndrome Current Visit: Yes Status: Chronic Code(s): K91.2 - POSTSURGICAL MALABSORPTION, NOT ELSEWHERE CLASSIFIED SNOMED Code(s): 83370002 (2) Abdominal pain Current Visit: Yes Status: Acute Code(s): R10.9 - UNSPECIFIED ABDOMINAL PAIN SNOMED Code(s): 60485594 Plan: The colonic distention is much improved. Will give the patient clear liquids without carbonated beverages. Serial exams. Currently nonsurgical
[2020-06-23] MEDS: HYDROcodone/APAP 5-325MG 1 EACH TAB PO PRN ×2 (14:50→20:44)
[2020-06-23] MEDS: tiZANidine 4 MG TAB PO SCH (21:04)
[2020-06-23] MEDS: QUEtiapine 50 MG TAB PO SCH (21:19)
[2020-06-24] MEDS: HEPARIN SODIUM,PORCINE 5,000 UNIT/ML 1 ML VIAL SQ SCH ×4 (00:14→23:43)
[2020-06-24] MEDS: SODIUM CHLORIDE 0.9% 1,000 ML IV SCH ×2 (01:26→09:41)
--- NOTE | 2020-06-24 06:29 | P.HPIM ---
History of Present Illness H&P Date: 06/23/20 Chief Complaint: Abdominal pain with colonic distension. This is a 64-year-old female patient of mine with history of TIA, chronic pain, lupus anticoagulant, multiple sclerosis, fibromyalgia, chronic kidney disease stage III, anemia of chronic disease, generalized anxiety disorder and recurrent depression, vitamin D deficiency, gastroesophageal reflux disease. 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 Lemos from Hematology and has been receiving treatment, chronic pancreatitis with chronic pain syndromes was on large dose of dilaudid for a long time till I weaned her off. Patient had a hospitalization back in october 2019 for cellulitis which she had recovered from, she came to see me in the office about a week ago with increased abdominal distention with increased abdominal pain with poor appetite along with nausea, she underwent CT scan of the abdomen and pelvis on 06/15/2020 which showed increased colonic distention and small bowel distention and with moderate fecal burden, she came to the office yesterday and she was not able to eat or drink wi th increased distention and she was directed to the ER for surgical consult with who operated on her for bowel obstruction last, she was admitted for evaluation and treatment. Review of Systems Constitutional: Reports anorexia, Reports fatigue, Reports weakness Eyes: denies blurred vision, denies bulging eye, denies decreased vision Ears, nose, mouth and throat: Denies dysphagia, Denies neck lump, Denies sore throat Cardiovascular: Denies chest pain, Denies decreased exercise tolerance, Denies dyspnea on exertion, Denies lightheadedness, Denies rapid heart beat, Denies shortness of breath, Denies syncope Respiratory: Denies congestion, Denies cough with sputum, Denies home oxygen, Denies sleep apnea, Denies snoring, Denies wheezing Gastrointestinal: Reports abdominal pain, Reports bloating, Reports constipation, Reports diarrhea, Reports heartburn, Reports loss of appetite, Reports nausea, Denies vomiting Genitourinary: Denies dysuria, Denies nocturia Menstruation: Reports postmenopausal Musculoskeletal: absent: ankle pain, ankle stiffness, ankle swelling, elbow pain, elbow stiffness, elbow swelling, foot pain, foot stiffness, foot swelling, hand pain, hand stiffness, hand swelling, hip pain, hip stiffness, hip swelling, knee pain, knee stiffness, knee swelling, shoulder pain, shoulder stiffness, shoulder swelling, wrist pain, wrist stiffness, wrist swelling Integumentary: Denies pruritus, Denies rash Neurological: Denies numbness, Denies weakness Psychiatric: Reports anxiety, Reports depression, Reports sleep disturbances, Denies sadness/tearfulness, Denies suicidal ideation Endocrine: Denies fatigue, Denies weight change Past Medical History Past Medical History: Cancer, COPD, CVA/TIA, Fibromyalgia, Hypertension Additional Past Medical History / Comment(s): Lupus, TIA, right hand tendons severed, closed head injury, multiple sclerosis, short bowel syndrome, pancreatic insufficiency, bowel cancer History of Any Multi-Drug Resistant Organisms: C-DIFF Date of last positivie culture/infection: 2014 MDRO Source:: patient Past Surgical History: Appendectomy, Back Surgery, Section, Orthopedic Surgery Additional Past Surgical History / Comment(s): stomach cancer, right hemicolectomy and small bowel resection Past Anesthesia/Blood Transfusion Reactions: No Reported Reaction Past Psychological History: Anxiety, Bipolar, Depression, PTSD Smoking Status: Current every day smoker Past Alcohol Use History: None Reported Additional Past Alcohol Use History / Comment(s): Patient is a smoker of 2-3 packs per day since she was 12 years of age and has recently cut back to 4 cigarettes per day. She denies any alcohol use. Past Drug Use History: None Reported - Past Family History Father Additional Family Medical History / Comment(s): Father has history of diabetes and stomach problems. Mother Additional Family Medical History / Comment(s): Mother has history of diabetes, coronary artery disease and COPD. Sister(s) Additional Family Medical History / Comment(s): Patient has sisters all have female problems. She does state there is breast cancer history in her aunt. Son(s) Family Medical History: No Reported History Additional Family Medical History / Comment(s): Patient has one son with no major medical problems. Medications and Allergies Home Medications Medication Instructions Recorded Confirmed Type DULoxetine HCL [Cymbalta] 60 mg PO DAILY 05/24/17 06/22/20 History Folic Acid 1 mg PO DAILY 05/24/17 06/22/20 History Magnesium Oxide [Mag-Ox] 400 mg PO BID 05/24/17 06/22/20 History traZODone HCL 150 mg PO HS 02/27/18 06/22/20 History Dicyclomine [Bentyl] 20 mg PO BID 07/10/18 06/22/20 History Albuterol Sulfate [Proair Hfa] 1 puff INHALATION RT-Q4H PRN 10/20/19 06/22/20 History Sodium Bicarbonate Tab 650 mg PO BID 10/20/19 06/22/20 History tiZANidine [Zanaflex] 2 mg PO HS PRN 10/20/19 06/22/20 History Famotidine [Pepcid] 20 mg PO HS 11/06/19 06/22/20 History Lipase/Protease/Amylase [Zenpep Dr 80,000 units PO AC-TID 11/06/19 06/22/20 History 40,000 Unit Capsule] Loperamide HCl [Imodium A-D] 2 mg PO TID 11/06/19 06/22/20 History ALPRAZolam [Xanax] 0.5 mg PO BID #6 tab 11/11/19 06/22/20 Rx Gabapentin [Neurontin] 300 mg PO TID #9 cap 11/11/19 06/22/20 Rx Furosemide [Lasix] 20 mg PO DAILY 06/22/20 06/22/20 History HYDROcodone/APAP 5-325MG [[place] 1 tab PO BID PRN 06/22/20 06/22/20 History 5-325] Potassium Chloride ER [K-Dur 20] 40 meq PO BID 06/22/20 06/22/20 History QUEtiapine [SEROquel] 50 mg PO HS 06/22/20 06/22/20 History amLODIPine [Norvasc] 5 mg PO DAILY 06/22/20 06/22/20 History Allergies Allergy/AdvReac Type Severity Reaction Status Date / Time alcohol Allergy Vomiting Verified 06/22/20 17:48 aspirin Allergy Unknown Verified 06/22/20 17:48 divalproex sodium Allergy Unknown Verified 06/22/20 17:48 [From Depakote] erythromycin base Allergy Unknown Verified 06/22/20 17:48 ketorolac [From Toradol] Allergy Unknown Verified 06/22/20 17:48 Penicillins Allergy Unknown Verified 06/22/20 17:48 shellfish derived [Shellfish] Allergy Unknown Verified 06/22/20 17:48 strawberry Allergy Unknown Verified 06/22/20 17:48 Sulfa (Sulfonamide Allergy Unknown Verified 06/22/20 17:48 Antibiotics) Physical Exam Vitals: Vital Signs Temp Pulse Pulse Resp BP BP Pulse Ox 06/23/20 02:00 97.3 F L 66 18 102/66 95 06/22/20 20:00 97.9 F 67 20 103/58 97 06/22/20 16:26 98.4 F 62 17 95/60 98 06/22/20 14:36 97.7 F 82 18 147/74 100 Intake and Output 06/22/20 06/22/20 06/23/20 14:59 22:59 06:59 Other: # Voids 2 1 Weight 59.421 kg 59.421 kg Physical examination: HEENT: head is atraumatic normocephalic pupils were equal round reactive to light and accommodations extra ocular muscle movements were intact. Neck: supple , no JVP, no carotid bruits. Chest: decrease breath sounds at the bases with few ronchi , there is no expiratory wheezes or intercostal retractions. Heart: first heart sound is depressed second heart sound is normal there is no gallop or murmur. Abdomen: soft , mild non specific tenderness, there is no rebound or guarding positive bowel sounds. Extremities: there is increased edema no calf tenderness DP +1 bilaterally. Neurologic examination: patient is awake alert and oriented X 3 CN II-XII are grossly intact, muscle power 4/5 in bilateral upper and lower extremities, DTR were normal, Babinski's are flexor bilaterally. Results CBC & Chem 7: 06/23/20 07:20 06/23/20 07:20 Labs: Abnormal Lab Results - Last 24 Hours (Table) 06/22/20 06/22/20 06/22/20 Range/Units 15:32 15:32 15:32 RBC 2.75 L (3.80-5.40) m/uL Hgb 9.1 L (11.4-16.0) gm/dL Hct 27.4 L (34.0-46.0) % Lymphocytes # 0.9 L (1.0-4.8) k/uL APTT 21.0 L (22.0-30.0) sec Sodium 133 L (137-145) mmol/L Potassium 5.3 H (3.5-5.1) mmol/L BUN 25 H (7-17) mg/dL Creatinine 1.34 H (0.52-1.04) mg/dL Total Protein 6.0 L (6.3-8.2) g/dL Thrombosis Risk Factor Assmnt - DVT/VTE Prophylaxis DVT/VTE Prophylaxis: Pharmacologic Prophylaxis ordered, Mechanical Prophylaxis ordered - Choose All That Apply Other Risk Factors: Yes Each Risk Factor Represents 2 Points: Age 61-74 years Thrombosis Risk Factor Assessment Total Risk Factor Score: 2 Thrombosis Risk Factor Assessment Level: Low Risk Assessment and Plan Assessment: Assessment and plan: 1. abdominal pain and distention due to stool burden and possible Ileus. we will continue with NPO till seen by surgery, we will give dulcolax suppository X 1 and we will try to avoid enemas, we will continue with IVF over the next 24 hours, and we will continue to monitor. 2. 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 Continue Folic acid 1 mg orally daily and she has been receiving Erythropoitein through her [employer]. 3. Chronic kidney disease stage 3. Saline lock, continue Sodium bicrab 650 mg orally bid, repeat CMP in AM. 4. History of Lupus anticoagulant. stable. 5. Chronic pancreatitis with chronic pain syndrome. Continue Bentyl. 6. Chronic pain syndrome. Continue Gabapentin 300 mg orally tid. 7. GERD. we will continue with Pepcid 20 mg orally daily. 8. Recurrent depression. Continue Cymbalta 60 mg orally daily. 9. Generalized anxiety disorder. Continue Xanax as needed, aware of the side effects of the treatment and the potential of habitual use. 10. Insomnia. Continue Trazodone 100 mg po at bedtime. 11. Vitamin D deficiency. Continue with vitamin D supplement. 12. History of Multiple sclerosis. Continue with Tizanidine 2 mg orally at bedtime. 13. DVT prophylaxis. we will continue with Heparin 5000 units SC Q 12 H. 14. GI prophylaxis. we will continue with Pepcid. 15. admits to inpatient, estimated length of stay 2 midnights. ' 16. full code.
--- NOTE | 2020-06-24 07:54 | P.PN ---
Subjective Progress Note Date: 06/24/20 The patient is seen on rounds. She is still having some pain across the upper abdomen. She had a large amount of flatus and bowel movement after the suppository. She was not given clear liquids until last night. She has only had a few sips of clear liquids. That did not cause any nausea or vomiting, no increase in pain. Overall feels much better than admission Objective - Vital Signs Vital signs: Vital Signs Temp 98.0 F 06/24/20 01:57 Pulse 73 06/24/20 01:57 Resp 16 06/24/20 01:57 BP 128/71 06/24/20 01:57 Pulse Ox 94 L 06/24/20 01:57 Intake & Output 06/23/20 06/24/20 06/24/20 18:59 06:59 18:59 Intake Total 500 Balance 500 Intake: Oral 500 Other: Voiding Method Toilet Toilet # Voids 1 2 # Bowel Movements 1 1 - Constitutional General appearance: Present: cooperative, no acute distress - Respiratory Respiratory: bilateral: CTA - Cardiovascular Rhythm: regular - Gastrointestinal General gastrointestinal: Present: decreased bowel sounds, soft, tenderness (Tenderness across the upper abdomen, much improved from yesterday. No guarding or rebound. No pain with percussion) - Labs CBC & Chem 7: 06/23/20 07:20 06/23/20 07:20 Labs: Abnormal Lab Results - Last 24 Hours (Table) 06/23/20 Range/Units 07:20 Anion Gap 3.40 L (4.00-12.00) mmol/L Est GFR (CKD-EPI)AfAm 49.5 L (60.0-200.0) Est GFR (CKD-EPI)NonAf 42.7 L (60.0-200.0) Calcium 8.4 L (8.7-10.3) mg/dL Total Bilirubin 0.2 L (0.3-1.2) mg/dL Total Protein 4.6 L (6.2-8.2) g/dL Albumin 3.30 L (3.80-4.90) g/dL Globulin 1.3 L (1.6-3.3) g/dL Assessment and Plan (1) Short bowel syndrome Current Visit: Yes Status: Chronic Code(s): K91.2 - POSTSURGICAL MALABSORPTION, NOT ELSEWHERE CLASSIFIED SNOMED Code(s): 43163539 (2) Abdominal pain Current Visit: Yes Status: Acute Code(s): R10.9 - UNSPECIFIED ABDOMINAL PAIN SNOMED Code(s): 10006153 Plan: The patient is still having some tenderness but it is much improved from admission. The distention of the colon is resolved. We will start her on clear liquids. Gradually increase the diet. Currently nonsurgical.
[2020-06-24] MEDS: ALPRAZolam 0.5 MG TAB PO SCH ×2 (08:43→21:01)
[2020-06-24] MEDS: DULoxetine HCL 60 MG CAPSULE.DR PO SCH (08:43)
[2020-06-24] MEDS: FOLIC ACID 1 MG TAB PO SCH (08:43)
[2020-06-24] MEDS: GABAPENTIN 300 MG CAP PO SCH ×3 (08:43→21:01)
[2020-06-24] MEDS: amLODIPine 5 MG TAB PO SCH (08:43)
[2020-06-24] MEDS: SODIUM BICARBONATE TAB 650 MG TAB PO SCH ×2 (08:44→21:00)
[2020-06-24] MEDS: PANTOPRAZOLE 40 MG/10 ML VIAL IV SCH (08:44)
[2020-06-24] MEDS: HYDROmorphone 0.5 MG/0.5 ML SYRINGE IVP PRN ×2 (08:55→21:02)
[2020-06-24 08:56] LABS: Basophils % (A) 1 %; Eosinophils # (A) 0.1 k/uL (0-0.7); Eosinophils % (A) 2 %; HGB 8.9 gm/dL (11.4-16.0); Lymphocytes # (A) 1.2 k/uL (1.0-4.8); Lymphocytes % (A) 31 %; MCH 32.6 pg (25.0-35.0); MCHC 31.7 g/dL (31.0-37.0); MCV 102.7 fL (80.0-100.0); Macrocytosis Slight; Monocytes # (A) 0.2 k/uL (0-1.0); Monocytes % (A) 7 %; Neutrophils # (A) 2.1 k/uL (1.3-7.7); Neutrophils % (A) 57 %; Platelet Count 222 k/uL (150-450); RBC 2.72 m/uL (3.80-5.40); RDW 13.9 % (11.5-15.5); WBC 3.7 k/uL (3.8-10.6)
[2020-06-24] MEDS: HYDROcodone/APAP 5-325MG 1 EACH TAB PO PRN ×2 (15:32→23:47)
--- NOTE | 2020-06-24 17:13 | P.PN ---
Subjective Progress Note Date: 06/24/20 This is a 64-year-old female patient of mine with history of TIA, chronic pain, lupus anticoagulant, multiple sclerosis, fibromyalgia, chronic kidney disease stage III, anemia of chronic disease, generalized anxiety disorder and recurrent depression, vitamin D deficiency, gastroesophageal reflux disease. 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 Lemos from Hematology and has been receiving treatment, chronic pancreatitis with chronic pain syndromes was on large dose of dilaudid for a long time till I weaned her off. Patient had a hospitalization back in october 2019 for cellulitis which she had recovered from, she came to see me in the office about a week ago with increased abdominal distention with increased abdominal pain with poor appetite along with nausea, she underwent CT scan of the abdomen and pelvis on 06/15/2020 which showed increased colonic distention and small bowel distention and with moderate fecal burden, she came to the office yesterday and she was not able to eat or drink with increased distention and she was directed to the ER for surgical consult with who operated on her for bowel obstruction last, she was admitted for evaluation and treatment. 06/24: Patient is laying down in bed in no apparent distress, she denies any chest pain, shortness breath, she has not had any nausea or vomiting, she is tolerating full liquid diet very well, we'll advance that to soft low-residue diet, and the Hep-Lock her IV and hopefully will be able to discharge additional 24 hours of effusion or surgery. Objective - Vital Signs Vital signs: Vital Signs Temp 98.5 F 06/24/20 14:00 Pulse 71 06/24/20 14:00 Resp 16 06/24/20 14:00 BP 91/48 06/24/20 14:00 Pulse Ox 95 06/24/20 14:00 Intake & Output 06/23/20 06/24/20 06/24/20 18:59 06:59 18:59 Intake Total 500 Balance 500 Intake: Oral 500 Other: Voiding Method Toilet Toilet # Voids 1 2 # Bowel Movements 1 1 - Exam Review of Systems Constitutional: Reports anorexia, Reports fatigue, Reports weakness Eyes: denies blurred vision, denies bulging eye, denies decreased vision Ears, nose, mouth and throat: Denies dysphagia, Denies neck lump, Denies sore throat Cardiovascular: Denies chest pain, Denies decreased exercise tolerance, Denies dyspnea on exertion, Denies lightheadedness, Denies rapid heart beat, Denies shortness of breath, Denies syncope Respiratory: Denies congestion, Denies cough with sputum, Denies home oxygen, Denies sleep apnea, Denies snoring, Denies wheezing Gastrointestinal: Reports abdominal pain, Reports bloating, Reports constipation, Reports diarrhea, Reports heartburn, Reports loss of appetite, Reports nausea, Denies vomiting Genitourinary: Denies dysuria, Denies nocturia Menstruation: Reports postmenopausal Musculoskeletal: absent: ankle pain, ankle stiffness, ankle swelling, elbow pain, elbow stiffness, elbow swelling, foot pain, foot stiffness, foot swelling, hand pain, hand stiffness, hand swelling, hip pain, hip stiffness, hip swelling, knee pain, knee stiffness, knee swelling, shoulder pain, shoulder stiffness, shoulder swelling, wrist pain, wrist stiffness, wrist swelling Integumentary: Denies pruritus, Denies rash Neurological: Denies numbness, Denies weakness Psychiatric: Reports anxiety, Reports depression, Reports sleep disturbances, Denies sadness/tearfulness, Denies suicidal ideation Endocrine: Denies fatigue, Denies weight change Physical examination: HEENT: head is atraumatic normocephalic pupils were equal round reactive to light and accommodations extra ocular muscle movements were intact. Neck: supple , no JVP, no carotid bruits. Chest: decrease breath sounds at the bases with few ronchi , there is no expiratory wheezes or intercostal retractions. Heart: first heart sound is depressed second heart sound is normal there is no gallop or murmur. Abdomen: soft , mild non specific tenderness, there is no rebound or guarding positive bowel sounds. Extremities: there is increased edema no calf tenderness DP +1 bilaterally. Neurologic examination: patient is awake alert and oriented X 3 CN II-XII are grossly intact, muscle power 4/5 in bilateral upper and lower extremities, DTR were normal, Babinski's are flexor bilaterally. - Labs CBC & Chem 7: 06/24/20 08:01 06/23/20 07:20 Labs: Abnormal Lab Results - Last 24 Hours (Table) 06/24/20 Range/Units 08:01 WBC 3.7 L (3.8-10.6) k/uL RBC 2.72 L (3.80-5.40) m/uL Hgb 8.9 L (11.4-16.0) gm/dL Hct 28.0 L (34.0-46.0) % MCV 102.7 H (80.0-100.0) fL Assessment and Plan Assessment: Assessment and plan: 1. abdominal pain and distention due to stool burden and possible Ileus. Patient is tolerating full liquid diet very well we will advance to soft diet low-residue., we will give dulcolax suppository X 1 and we will try to avoid enemas, we will continue with IVF over the next 24 hours, and we will continue to monitor. 2. 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 Continue Folic acid 1 mg orally daily and she has been receiving Erythropoitein through her [employer] [facility]. 3. Chronic kidney disease stage 3. Saline lock, continue Sodium bicrab 650 mg orally bid, repeat CMP in AM. 4. History of Lupus anticoagulant. stable. 5. Chronic pancreatitis with chronic pain syndrome. Continue Bentyl. 6. Chronic pain syndrome. Continue Gabapentin 300 mg orally tid. 7. GERD. we will continue with Pepcid 20 mg orally daily. 8. Recurrent depression. Continue Cymbalta 60 mg orally daily. 9. Generalized anxiety disorder. Continue Xanax as needed, aware of the side effects of the treatment and the potential of habitual use. 10. Insomnia. Continue Trazodone 100 mg po at bedtime. 11. Vitamin D deficiency. Continue with vitamin D supplement. 12. History of Multiple sclerosis. Continue with Tizanidine 2 mg orally at bedt keanu. 13. DVT prophylaxis. we will continue with Heparin 5000 units SC Q 12 H. 14. GI prophylaxis. we will continue with Pepcid. 15. Advance diet to soft diet. 16. Anticipate discharge tomorrow morning.
[2020-06-24] MEDS: tiZANidine 4 MG TAB PO SCH (21:00)
[2020-06-24] MEDS: QUEtiapine 50 MG TAB PO SCH (21:01)
[2020-06-25 02:22] VITALS: BP 116/83; PULSE 45; TEMP 98.8
[2020-06-25 02:28] LABS: African American GFR (CKD) 49.5 (60.0-200.0); Albumin 3.6 g/dL (3.80-4.90); Albumin/Globulin Ratio 2.25 (1.60-3.17); Anion Gap 14.4 mmol/L (4.00-12.00); BUN/Creat Ratio 16.15 Ratio (12.00-20.00); Carbon Dioxide 21.6 mmol/L (21.6-31.8); Globulin 1.6 g/dL (1.6-3.3); Non-African American GFR(CKD) 42.7 (60.0-200.0); Total Bilirubin 0.3 mg/dL (0.3-1.2); Total Protein 5.2 g/dL (6.2-8.2)
[2020-06-25 06:20] LABS: Basophils % (A) 1 %; Eosinophils # (A) 0.1 k/uL (0-0.7); Eosinophils % (A) 3 %; HCT 27.3 % (34.0-46.0); HGB 9.3 gm/dL (11.4-16.0); Lymphocytes # (A) 1.7 k/uL (1.0-4.8); Lymphocytes % (A) 42 %; MCH 33.5 pg (25.0-35.0); MCHC 34.2 g/dL (31.0-37.0); MCV 98.1 fL (80.0-100.0); Mean Platelet Volume 6.7; Monocytes # (A) 0.3 k/uL (0-1.0); Monocytes % (A) 7 %; Neutrophils # (A) 1.8 k/uL (1.3-7.7); Neutrophils % (A) 46 %; Platelet Count 261 k/uL (150-450); RBC 2.78 m/uL (3.80-5.40); RDW 13.3 % (11.5-15.5)
[2020-06-25] MEDS ORDERED: PANTOPRAZOLE 40 MG TABLET PO SCH (07:30)
[2020-06-25] MEDS: FOLIC ACID 1 MG TAB PO SCH (08:07)
[2020-06-25] MEDS: DULoxetine HCL 60 MG CAPSULE.DR PO SCH (08:07)
[2020-06-25] MEDS: SODIUM BICARBONATE TAB 650 MG TAB PO SCH (08:08)
[2020-06-25] MEDS: amLODIPine 5 MG TAB PO SCH (08:08)
[2020-06-25] MEDS: GABAPENTIN 300 MG CAP PO SCH (08:08)
[2020-06-25] MEDS: ALPRAZolam 0.5 MG TAB PO SCH (08:08)
[2020-06-25] MEDS: HEPARIN SODIUM,PORCINE 5,000 UNIT/ML 1 ML VIAL SQ SCH (08:08)
[2020-06-25] MEDS: HYDROcodone/APAP 5-325MG 1 EACH TAB PO PRN (08:15)
[2020-06-25 09:57] VITALS: RESP 18
[2020-06-25 10:22] LABS: African American GFR (CKD) 49.5 (60.0-200.0); Anion Gap 8.2 mmol/L (4.00-12.00); BUN/Creat Ratio 13.85 Ratio (12.00-20.00); Calcium 8.6 mg/dL (8.7-10.3); Carbon Dioxide 27.8 mmol/L (21.6-31.8); Non-African American GFR(CKD) 42.7 (60.0-200.0); Potassium 4.3 mmol/L (3.5-5.5)
--- NOTE | 2020-07-01 15:14 | P.DS ---
Providers Date of admission: 06/22/20 15:11 Expected date of discharge: 07/01/20 Attending physician: Meseret Haq Consults: 06/22/20 15:12 Consult Physician Urgent Consulting Provider: Huong Guaman Consult Reason/Comments: ab pain Do you want consulting provider notified?: Yes Primary care physician: Meseret Haq Hospital Course: This is a 64-year-old female patient of mine with history of TIA, chronic pain, lupus anticoagulant, multiple sclerosis, fibromyalgia, chronic kidney disease stage III, anemia of chronic disease, generalized anxiety disorder and recurrent depression, vitamin D deficiency, gastroesophageal reflux disease. 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 Lemos from Hematology and has been receiving treatment, chronic pancreatitis with chronic pain syndromes was on large dose of dilaudid for a long time till I weaned her off. Patient had a hospitalization back in october 2019 for cellulitis which she had recovered from, she came to see me in the office about a week ago with increased abdominal distention with increased abdominal pain with poor appetite along with nausea, she underwent CT scan of the abdomen and pelvis on 06/15/2020 which showed increased colonic distention and small bowel distention and with moderate fecal burden, she came to the office yesterday and she was not able to eat or drink with increased distention and she was directed to the ER for surgical consult with who operated on her for bowel obstruction last, she was admitted for evaluation and treatment. 06/24: Patient is laying down in bed in no apparent distress, she denies any chest pain, shortness breath, she has not had any nausea or vomiting, she is tolerating full liquid diet very well, we'll advance that to soft low-residue diet, and the Hep-Lock her IV and hopefully will be able to discharge additional 24 hours of effusion or surgery. 06/25: Patient has been afebrile, heart rate 4571, blood pressure 116/83, pulse ox 96% on room air. Repeat hemoglobin 9.3. Patient states that abdominal pain has improved significantly since admission. She denies any nausea, vomiting, diarrhea. No abdominal tenderness. Patient will be discharged home today in stable condition. Discharge diagnoses: 1. Abdominal pain and distention due to stool burden and possible Ileus. 2. 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 3. Chronic kidney disease stage 3. 4. History of Lupus anticoagulant. stable. 5. Chronic pancreatitis with chronic pain syndrome. 6. Chronic pain syndrome. 7. GERD. 8. Recurrent depression. 9. Generalized anxiety disorder. 10. Insomnia. 11. Vitamin D deficiency. 12. History of Multiple sclerosis. Discharge plan: Home with the [facility] Impression and plan of care have been directed as dictated by the signing physician. Annalisa Delcid nurse practitioner acting as scribe for signing physician. Patient Condition at Discharge: Good Plan - Discharge Summary Discharge Rx Participant: No New Discharge Prescriptions: Continue Magnesium Oxide [Mag-Ox] 400 mg PO BID Folic Acid 1 mg PO DAILY DULoxetine HCL [Cymbalta] 60 mg PO DAILY traZODone HCL 150 mg PO HS Dicyclomine [Bentyl] 20 mg PO BID tiZANidine [Zanaflex] 2 mg PO HS PRN PRN Reason: Muscle Spasm Sodium Bicarbonate Tab 650 mg PO BID Albuterol Sulfate [Proair Hfa] 1 puff INHALATION RT-Q4H PRN PRN Reason: Shortness Of Breath Lipase/Protease/Amylase [Zenpep Dr 40,000 Unit Capsule] 80,000 units PO AC- TID Famotidine [Pepcid] 20 mg PO HS Loperamide HCl [Imodium A-D] 2 mg PO TID Gabapentin [Neurontin] 300 mg PO TID #9 cap ALPRAZolam [Xanax] 0.5 mg PO BID #6 tab Potassium Chloride ER [K-Dur 20] 40 meq PO BID HYDROcodone/APAP 5-325MG [Carson 5-325] 1 tab PO BID PRN PRN Reason: Pain amLODIPine [Norvasc] 5 mg PO DAILY QUEtiapine [SEROquel] 50 mg PO HS Furosemide [Lasix] 20 mg PO DAILY Discharge Medication List DULoxetine HCL [Cymbalta] 60 mg PO DAILY 05/24/17 [History] Folic Acid 1 mg PO DAILY 05/24/17 [History] Magnesium Oxide [Mag-Ox] 400 mg PO BID 05/24/17 [History] traZODone HCL 150 mg PO HS 02/27/18 [History] Dicyclomine [Bentyl] 20 mg PO BID 07/10/18 [History] Albuterol Sulfate [Proair Hfa] 1 puff INHALATION RT-Q4H PRN 10/20/19 [History] Sodium Bicarbonate Tab 650 mg PO BID 10/20/19 [History] tiZANidine [Zanaflex] 2 mg PO HS PRN 10/20/19 [History] Famotidine [Pepcid] 20 mg PO HS 11/06/19 [History] Lipase/Protease/Amylase [Zenpep Dr 40,000 Unit Capsule] 80,000 units PO AC-TID 11/06/19 [History] Loperamide HCl [Imodium A-D] 2 mg PO TID 11/06/19 [History] ALPRAZolam [Xanax] 0.5 mg PO BID #6 tab 11/11/19 [Rx] Gabapentin [Neurontin] 300 mg PO TID #9 cap 11/11/19 [Rx] Furosemide [Lasix] 20 mg PO DAILY 06/22/20 [History] HYDROcodone/APAP 5-325MG [Carson 5-325] 1 tab PO BID PRN 06/22/20 [History] Potassium Chloride ER [K-Dur 20] 40 meq PO BID 06/22/20 [History] QUEtiapine [SEROquel] 50 mg PO HS 06/22/20 [History] amLODIPine [Norvasc] 5 mg PO DAILY 06/22/20 [History] Follow up Appointment(s)/Referral(s): Meseret Haq MD [Primary Care Provider] - 1-2 days (office is closed for the holiday.patient will have to call and schedule own appt ) Patient Instructions/Handouts: Chronic Abdominal Pain (GEN) Discharge Disposition: HOME SELF-CARE
== END 2020-06-25 10:44 | disposition home or self-care (01) | DRG 388 ==
LOC: EC 14:33 → 5NMEDONC 15:11
PROVIDERS: ADMIT Internal Medicine; ATTEND Internal Medicine
DX: K56.7 Ileus, unspecified (principal); D60.9 Acquired pure red cell aplasia, unspecified; D68.62 Lupus anticoagulant syndrome; K86.1 Other chronic pancreatitis; K91.2 Postsurgical malabsorption, not elsewhere classified; D63.8 Anemia in other chronic diseases classified elsewhere; E55.9 Vitamin D deficiency, unspecified; F17.210 Nicotine dependence, cigarettes, uncomplicated; F31.9 Bipolar disorder, unspecified; F41.1 Generalized anxiety disorder; F43.10 Post-traumatic stress disorder, unspecified; G35 Multiple sclerosis; G47.00 Insomnia, unspecified; G89.4 Chronic pain syndrome; I12.9 Hypertensive chronic kidney disease with stage 1 through stage 4 chronic kidney disease, or unspecified chronic kidney disease; J44.9 Chronic obstructive pulmonary disease, unspecified; K21.9 Gastro-esophageal reflux disease without esophagitis; K59.00 Constipation, unspecified; M79.7 Fibromyalgia; N18.30 Chronic kidney disease, stage 3 unspecified; Z79.899 Other long term (current) drug therapy; Z82.49 Family history of ischemic heart disease and other diseases of the circulatory system; Z82.5 Family history of asthma and other chronic lower respiratory diseases; Z83.3 Family history of diabetes mellitus; Z85.028 Personal history of other malignant neoplasm of stomach; Z86.73 Personal history of transient ischemic attack (TIA), and cerebral infarction without residual deficits; Z90.49 Acquired absence of other specified parts of digestive tract; Z80.3 Family history of malignant neoplasm of breast; Z83.79 Family history of other diseases of the digestive system; Z88.2 Allergy status to sulfonamides; Z88.8 Allergy status to other drugs, medicaments and biological substances; Z88.6 Allergy status to analgesic agent; Z88.1 Allergy status to other antibiotic agents; Z88.0 Allergy status to penicillin; Z91.013 Allergy to seafood
CPT/HCPCS: 74018; 80048; 80053; 82150; 83690; 83735; 85025; 85610; 85730; 96374; 96375; 99284

== ENCOUNTER → 2020-09-09 | Outpatient (CLI) | payer MEDICARE, OTHER ==
--- NOTE | 2020-09-09 10:25 | XR ---
EXAMINATION TYPE: XR chest 2V DATE OF EXAM: 09/09/2020 COMPARISON: 10/21/2019 TECHNIQUE: PA and lateral views submitted. HISTORY: Cough FINDINGS: The lungs are clear and there is no pneumothorax, pleural effusion, or focal pneumonia. Diffuse ost eopenia. Arthropathy of the shoulders. Biapical pleural thickening. Heart size normal. No overt failu re. Degenerative change of the spine. Hyperinflation suggests COPD. IMPRESSION: 1. No acute process. Correlate for COPD.
== END ==
LOC: RADXRMAIN 09:59
PROVIDERS: ATTEND Internal Medicine
DX: R05 Cough (principal)
CPT/HCPCS: 71046

== ENCOUNTER → 2020-09-28 | Outpatient (CLI) | payer MEDICARE, OTHER ==
--- NOTE | 2020-09-30 08:31 | MM ---
Reason for exam: screening (asymptomatic). Last mammogram was performed 1 year and 4 months ago. History: Patient is postmenopausal and has history of other cancer at age 30. Family history of breast cancer in aunt at age 60. Took estrogen for 12 years 1 month beginning at age 38. Physical Findings: A clinical breast exam by your physician is recommended on an annual basis and results should be correlated with mammographic findings. MG 3D Screening Mammo W/Cad Bilateral CC and MLO view(s) were taken. Prior study comparison: June 13, 2019, bilateral MG 3d screening mammo w/cad. May 02, 2018, bilateral MG 3d screening mammo w/cad. The breast tissue is heterogeneously dense. This may lower the sensitivity of mammography. Focal asymmetry left inferior MLO view. This finding is changed when compared with previous exams. ASSESSMENT: Incomplete: need additional imaging evaluation, BI-RAD 0 RECOMMENDATION: Special view mammogram of the left breast. If lesion persists on supplemental views, image directed ultrasound is recommended. [facility] will attempt to contact patient to return for supplemental views and ultrasound if indicated.
== END | disposition home or self-care (01) ==
LOC: RADMAMWWP 10:54
PROVIDERS: ATTEND Internal Medicine
DX: Z12.31 Encounter for screening mammogram for malignant neoplasm of breast (principal)
CPT/HCPCS: 77063; 77067

== ENCOUNTER → 2020-10-27 | Outpatient (CLI) | payer MEDICARE, OTHER ==
--- NOTE | 2020-10-28 08:16 | MM ---
Reason for exam: additional evaluation requested from abnormal screening. Last mammogram was performed 1 month ago. History: Patient is postmenopausal and has history of other cancer at age 30. Family history of breast cancer in aunt at age 60. Physical Findings: Nurse did not find any significant physical abnormalities on exam. MG 3D Work Up W/Cad LT LM and spot compression MLO view(s) were taken of the left breast. Prior study comparison: September 28, 2020, bilateral MG 3d screening mammo w/cad. June 13, 2019, bilateral MG 3d screening mammo w/cad. The breast tissue is heterogeneously dense. This may lower the sensitivity of mammography. There is no discrete abnormality including area of concern, lower left MLO view compresses normally. No significant new findings when compared with previous films. These results were verbally communicated with the patient and result sheet given to the patient on 10/27/20. ASSESSMENT: Probably benign, BI-RAD 3 RECOMMENDATION: Follow-up diagnostic mammogram of the left breast in 6 months.
--- NOTE | 2020-10-28 09:27 | BD ---
EXAMINATION TYPE: Axial Bone Density DATE OF EXAM: 10/27/2020 COMPARISON: NONE CLINICAL HISTORY: Height: 5 FT 1 1/2 IN Weight: 122 FRAX RISK QUESTIONS: Alcohol (3 or more units per day): NO Family History (Parent hip fracture): NO Glucocorticoids (More than 3mos): NO (Ex: prednisone, prednisolone, methylprednisolone, dexamethasone, and hydrocortisone). History of Fracture in Adulthood: YES Secondary Osteoporosis: 1. Type 1 Diabetes: NO 2. Hyperthyroidism: NO 3. Menopause before 45: HYST AGE 25 OVARIES REMOVED AGE 39 4. Malnutrition: NO 5. Chronic liver disease: NO Rheumatoid Arthritis: NO Current Tobacco Use: YES RISK FACTORS HISTORY OF: Hip Fracture (Right/Left): RT HIP FX When: 2010 Spine Fracture: LUMBAR FX When: AGE 15 Surgery to Spine/Hip(right/left)/Wrist (right/left): LUMBAR SURG AGE 19 RT HIP SURG 2010 Family History of Osteoporosis: YES Active: SOMEWHAT Diet low in dairy products/other sources of calcium: NO Postmenopausal woman: ST AGE 25 OVARIES REMOVED AGE 39 Take estrogen and/or progesterone medications: NO Lost more than 2 inches in height since high school: NO MEDICATIONS: Additional Medications: NEURONTIN, FOLIC ACID, VIT D, MAGNESIUM, XANAX, HYDROCODONE,DICYCLOMINE, CYM SANDOR, RAYNE /PEP,MUSCLE RELAXER, TRAZODONE, Additional History: EXAM MEASUREMENTS: Bone mineral density about the L hip (g/cm2): 0.689 T Score values are as follows: -----L Neck: -2.5 -----L Total: -2.5 Bone mineral density has: DECREASED -2.8 % since study of: 2018 Bone mineral density about the L Wrist (g/cm2): 0.393 T Score values are as follows: -----Dist. R+U: -5.6 -----Prox. R+U: -3.8 -----Radius total: -4.7 Bone mineral density has: INCREASED 3.0 % since study of: 2019 IMPRESSION: Osteoporosis NOTE: T-SCORE=SD OF THE YOUNG ADULT MEAN.
== END | disposition home or self-care (01) ==
LOC: RADBDWWP 14:56
PROVIDERS: ATTEND Internal Medicine
DX: R92.8 Other abnormal and inconclusive findings on diagnostic imaging of breast (principal); Z80.3 Family history of malignant neoplasm of breast; Z78.0 Asymptomatic menopausal state; M81.0 Age-related osteoporosis without current pathological fracture
CPT/HCPCS: 77080; 77065; G0279; 77061

== ENCOUNTER → 2020-10-30 | Outpatient (CLI) | payer MEDICARE, OTHER ==
--- NOTE | 2020-10-30 14:47 | US ---
EXAMINATION TYPE: US kidneys/renal and bladder DATE OF EXAM: 10/30/2020 COMPARISON: CT 06/15/2020 CLINICAL HISTORY: R31.21 Microscopic hematuria. EXAM MEASUREMENTS: Right Kidney: 9.0 x 4.1 x 5.1 cm Left Kidney: 6.4 x 3.8 x 4.3 cm Right Kidney: No hydronephrosis or masses seen Left Kidney: limited visualization due to verlying bowel gas. Bladder: wnl Bilateral Jets seen: Yes IMPRESSION: There is limited visualization of the left kidney. Left kidney appears to be small with cortical thin andrei. No evidence of renal mass or obstruction. Mild cortical thinning also present in the right kidn ey. There are bilateral ureteral jets in the urinary bladder. No obstruction.
== END | disposition home or self-care (01) ==
LOC: RADUSWWP 14:09
PROVIDERS: ATTEND Internal Medicine
DX: R31.29 Other microscopic hematuria (principal)
CPT/HCPCS: 76770

== ENCOUNTER → 2020-12-17 | Outpatient (CLI) | payer MEDICARE, OTHER ==
--- NOTE | 2020-12-17 16:16 | BMR ---
EXAMINATION TYPE: MR breast BILAT wo/w con DATE OF EXAM: 12/17/2020 COMPARISON: 09/28/2020, 10/27/2020 HISTORY: Abnormal mammogram of left breast TECHNIQUE: A series of fat and water weighted images in the long and short axis views of both breasts are obtained in conjunction with dynamic contrast MRI with subtraction technique. The patient was i njected with 5.5 mL intravenous Gadavist gadolinium contrast. Three-dimensional and additional post processing imaging is created on independent workstation and reviewed during official interpretation of this study. FINDINGS: There is heterogeneously dense breast tissue bilaterally. There is mild bilateral background parenchy mal enhancement. There is no MRI evidence for malignancy in either breast. No lymphadenopathy is seen. IMPRESSION: No MRI evidence for malignancy in either breast. BI-RADS 2, benign. Recommendation: Left diagnostic mammogram is recommended in April 2021, as per prior report.
== END | disposition home or self-care (01) ==
LOC: RADMRIMAIN 13:40
PROVIDERS: ATTEND Internal Medicine
DX: R92.8 Other abnormal and inconclusive findings on diagnostic imaging of breast (principal)
CPT/HCPCS: C8937; C8908; A9585; 77049

== ENCOUNTER → 2020-12-22 | Outpatient (CLI) | payer MEDICARE, OTHER ==
--- NOTE | 2020-12-22 11:24 | CT ---
EXAMINATION TYPE: CT brain wo con DATE OF EXAM: 12/22/2020 COMPARISON: 10/19/2028. Intervertebral HISTORY: Intractable acute post traumatic headache CT DLP: 999.[address] of the brain was performed. The ventricles, basal cisterns and sulci overlying the cerebral convexities demonstrate mild enlargem ent. There is no evidence for intracranial hemorrhage or sulcal effacement. There is decreased attenuation about the periventricular white matter and deep white matter of both c erebral hemispheres, compatible with chronic small vessel ischemia. Differential diagnosis does inclu de demyelination. No mass effects are seen.No midline shift. Osseous calvarium is intact. If symptoms persist consider MRI. IMPRESSION: 1. Age related atrophic and chronic small vessel ischemic change without acute intracranial process s een at this time.
[2020-12-22 11:26] LABS: Basophils % (A) 1 %; Eosinophils # (A) 0.1 k/uL (0-0.7); Eosinophils % (A) 2 %; HCT 28.5 % (34.0-46.0); HGB 9.8 gm/dL (11.4-16.0); Lymphocytes # (A) 1.4 k/uL (1.0-4.8); Lymphocytes % (A) 24 %; MCHC 34.2 g/dL (31.0-37.0); MCV 96.3 fL (80.0-100.0); Mean Platelet Volume 6.8; Monocytes # (A) 0.3 k/uL (0-1.0); Monocytes % (A) 5 %; Neutrophils # (A) 3.9 k/uL (1.3-7.7); Neutrophils % (A) 68 %; Platelet Count 278 k/uL (150-450); RBC 2.96 m/uL (3.80-5.40); RDW 12.1 % (11.5-15.5); WBC 5.7 k/uL (3.8-10.6)
[2020-12-22 11:38] LABS: Albumin 4.2 g/dL (3.5-5.0); Calcium 9.4 mg/dL (8.4-10.2); Potassium 3.5 mmol/L (3.5-5.1); Total Bilirubin 0.3 mg/dL (0.2-1.3); Total Protein 6.6 g/dL (6.3-8.2)
== END | disposition home or self-care (01) ==
LOC: RADCTMAIN 10:27
PROVIDERS: ATTEND Internal Medicine
DX: I67.82 Cerebral ischemia (principal); G44.311 Acute post-traumatic headache, intractable; N18.31 Chronic kidney disease, stage 3a
CPT/HCPCS: 70450; 80053; 85025

== ENCOUNTER → 2021-01-28 | Outpatient (CLI) | payer MEDICARE, OTHER ==
--- NOTE | 2021-01-29 09:19 | XR ---
EXAMINATION TYPE: XR foot complete bilateral DATE OF EXAM: 01/28/2021 COMPARISON: NONE HISTORY: Pain TECHNIQUE: Three views are submitted. FINDINGS: The osseous structures are intact. There is no acute fracture or dislocation. Diffuse osteopenia a nd arthropathy at all DIP and first MCP joint.. IMPRESSION: 1. No acute fracture or dislocation. If symptoms persist, follow-up exam in 7 to 10 days could be ob tained. 2. Diffuse osteopenia with arthropathy.
== END | disposition home or self-care (01) ==
LOC: RADXRMAIN 15:20
PROVIDERS: ATTEND Podiatrist Foot Surgery
DX: M85.872 Other specified disorders of bone density and structure, left ankle and foot (principal); M85.871 Other specified disorders of bone density and structure, right ankle and foot; M12.9 Arthropathy, unspecified; M84.374A Stress fracture, right foot, initial encounter for fracture; M84.375A Stress fracture, left foot, initial encounter for fracture; I73.9 Peripheral vascular disease, unspecified; I87.2 Venous insufficiency (chronic) (peripheral)

== ENCOUNTER 2021-01-31 17:11 | Emergency (ER) | payer MEDICARE, OTHER ==
[2021-01-31] MEDS ORDERED: SODIUM CHLORIDE 0.9% 500 ML 500 ML IV STA (17:38)
[2021-01-31] MEDS ORDERED: MORPHINE SULFATE 4 MG/ML SYRINGE IV STA (17:38)
--- NOTE | 2021-01-31 17:51 | ED ---
General Adult HPI - General Chief complaint: Urogenital Stated complaint: low back pain Source: patient, RN notes reviewed, old records reviewed Mode of arrival: ambulatory Limitations: no limitations - History of Present Illness Initial comments: 65-year-old white female, alert and oriented 4, presents to the emergency room with multiple complaints. Patient states that she thinks she is having right kidney pain. She states that she was told that she has chronic kidney disease and her kidney has been hurting her and has had a decrease in urine output. She has no history of kidney stones. She also complains of bilateral paraspinal lumbar spine tenderness which causes pain that shoots down her legs. She has had back surgery in the past with screws in addition to a right femur fracture with screws. She is also complaining of bilateral foot pain which she states sh e seen her primary care doctor for and was told it was a sunburn. She states her feet are red and painful to touch. She seen Dr. Brown last Monday for this and received injections in her feet but doesn't know what they gave her or why. She had x-rays done on ordered by Dr Haq of her feet but doesn't know the results. She states that she's been unable to bear weight for long periods of time over the past several weeks and has been using a wheelchair at home. She states that she has noticed some blood in her urine also but denies any dysuria. She denies any bowel or bladder incontinence. No fevers. She denies any trauma. -: week(s) (6) Location: back, left, right, lower extremity Radiation: extremity Severity scale (1-10): 10 Quality: sharp, other (Shooting) Consistency: constant Improves with: rest Worsens with: movement, other (Walking) Treatments Prior to Arrival: none - Related Data Home Medications Medication Instructions Recorded Confirmed DULoxetine HCL [Cymbalta] 60 mg PO DAILY 05/24/17 01/31/21 Folic Acid 1 mg PO DAILY 05/24/17 01/31/21 Magnesium Oxide [Mag-Ox] 400 mg PO BID 05/24/17 01/31/21 traZODone HCL 150 mg PO HS 02/27/18 01/31/21 Dicyclomine [Bentyl] 20 mg PO TID 07/10/18 01/31/21 Albuterol Sulfate [Proair Hfa] 1 puff INHALATION RT-Q4H PRN 10/20/19 01/31/21 Sodium Bicarbonate Tab 650 mg PO BID 10/20/19 01/31/21 Famotidine [Pepcid] 20 mg PO BID 11/06/19 01/31/21 Lipase/Protease/Amylase [Zenpep Dr 80,000 units PO TID-W/MEALS 11/06/19 01/31/21 40,000 Unit Capsule] Loperamide HCl [Imodium A-D] 2 mg PO TID PRN 11/06/19 01/31/21 HYDROcodone/APAP 5-325MG [[place] 1 tab PO BID PRN 06/22/20 01/31/21 5-325] QUEtiapine [SEROquel] 50 mg PO HS 06/22/20 01/31/21 Ergocalciferol (Vitamin D2) 1,250 mcg PO Q14D 01/31/21 01/31/21 [Drisdol (50,000 Iu)] carisoprodoL [Soma] 350 mg PO HS 01/31/21 01/31/21 Previous Rx's Medication Instructions Recorded ALPRAZolam [Xanax] 0.5 mg PO BID #6 tab 11/11/19 Gabapentin [Neurontin] 300 mg PO TID #9 cap 11/11/19 Allergies Allergy/AdvReac Type Severity Reaction Status Date / Time alcohol Allergy Vomiting Verified 01/31/21 18:12 aspirin Allergy Unknown Verified 01/31/21 18:12 divalproex sodium Allergy Unknown Verified 01/31/21 18:12 [From Depakote] erythromycin base Allergy Unknown Verified 01/31/21 18:12 ketorolac [From Toradol] Allergy Unknown Verified 01/31/21 18:12 Penicillins Allergy Unknown Verified 01/31/21 18:12 shellfish derived [Shellfish] Allergy Unknown Verified 01/31/21 18:12 strawberry Allergy Unknown Verified 01/31/21 18:12 Sulfa (Sulfonamide Allergy Unknown Verified 01/31/21 18:12 Antibiotics) Patient : No Review of Systems ROS Statement: Those systems with pertinent positive or pertinent negative responses have been documented in the HPI. ROS Other: All systems not noted in ROS Statement are negative. Past Medical History Past Medical History: Cancer, COPD, CVA/TIA, Fibromyalgia, Hypertension Additional Past Medical History / Comment(s): Lupus, TIA, right hand tendons severed, closed head injury, multiple sclerosis, short bowel syndrome, pancreatic insufficiency, bowel cancer History of Any Multi-Drug Resistant Organisms: C-DIFF Date of last positivie culture/infection: 2014 MDRO Source:: patient Past Surgical History: Appendectomy, Back Surgery, Section, Orthopedic Surgery Additional Past Surgical History / Comment(s): stomach cancer, right hemicolectomy and small bowel resection Past Anesthesia/Blood Transfusion Reactions: No Reported Reaction Past Psychological History: Anxiety, Bipolar, Depression, PTSD Smoking Status: Current every day smoker Past Alcohol Use History: None Reported Past Drug Use History: None Reported - Past Family History Father Additional Family Medical History / Comment(s): Father has history of diabetes and stomach problems. Mother Additional Family Medical History / Comment(s): Mother has history of diabetes, coronary artery disease and COPD. Sister(s) Additional Family Medical History / Comment(s): Patient has sisters all have female problems. She does state there is breast cancer history in her aunt. Son(s) Family Medical History: No Reported History Additional Family Medical History / Comment(s): Patient has one son with no major medical problems. General Exam Limitations: no limitations General appearance: alert, in no apparent distress Head exam: Present: atraumatic, normocephalic, normal inspection Eye exam: Present: normal appearance, PERRL, EOMI. Absent: scleral icterus, conjunctival injection, periorbital swelling Pupils: Present: normal accommodation ENT exam: Present: normal exam, normal oropharynx, mucous membranes moist Neck exam: Present: normal inspection, full ROM. Absent: tenderness, meningismus, lymphadenopathy, thyromegaly Respiratory exam: Present: normal lung sounds bilaterally. Absent: respiratory distress, wheezes, rales, rhonchi, stridor, chest wall tenderness, accessory muscle use, decreased breath sounds Cardiovascular Exam: Present: regular rate, normal rhythm, normal heart sounds. Absent: systolic murmur, diastolic murmur, rubs, gallop, clicks GI/Abdominal exam: Present: soft, tenderness (Diffuse abdominal tenderness), normal bowel sounds. Absent: distended, guarding, rebound, rigid Extremities exam: Present: full ROM, normal capillary refill, pedal edema. Absent: tenderness, joint swelling, calf tenderness Left Ankle exam: Present: tenderness. Absent: laceration, deformity Foot/Toe exam: Present: tenderness, swelling. Absent: laceration, dislocation Neurovascular tendon exam: Absent: abnormal cap refill, extremity cold to touch, pallor Right Ankle exam: Present: swelling Foot/Toe exam: Present: tenderness, swelling. Absent: laceration Neurovascular tendon exam: Present: no vascular compromise. Absent: abnormal cap refill, pallor, foot drop Back exam: Present: normal inspection, full ROM, paraspinal tenderness (Lumbar spine). Absent: CVA tenderness (R), CVA tenderness (L), muscle spasm, rash noted Neurological exam: Present: alert, oriented X3, CN II-XII intact Psychiatric exam: Present: normal affect, normal mood Skin exam: Present: warm, dry, intact, normal color. Absent: rash, cyanosis, pallor, mottled Course Vital Signs 01/31/21 17:13 Temperature 99.1 F Pulse Rate 89 Respiratory 18 Rate Blood Pressure 175/82 O2 Sat by Pulse 96 Oximetry Medical Decision Making - Medical Decision Making The x-rays of the feet ordered by Dr Haq show no acute fracture dislocation, diffuse osteopenia with arthropathy. BUN and creatinine and 12/22/2020 was 22 and 1.8 and today is 21 and 1.51. She states her doctor has been monitoring her kidney function. Patient does have past surgical history of back surgery, appendectomy, right hemicolectomy with bowel resection. She also has lupus, fibromyalgia, multiple sclerosis bowel cancer and pancreatic insufficiency. CT the abdomen and pelvis shows some constipation. There is clearing of the dilated large bowel loops compared to old exam. Kidneys are normal size and there is no hydronephrosis. There is no ascites or free air or bowel obstruction. There is no compression fracture. There is evidence of posterior fusion surgery at L5-S1 Her labs show WBC count was 5.4, hemoglobin and hematocrit is 10.5 and 31.2 respectively which is consistent for patient. Potassium is 3.3 and was given 40 of K Dur. Patient's pain is consistent with her lumbar back pain that shoots down the back of her legs. She'll be directed to follow up with Dr. Haq regarding her bilateral foot pain that he has been treating her for. She will be directed to continue her pain medications as prescribed at home including her Neurontin and [place] and follow-up with her primary care Dr Haq and Dr Brown. Patient is agreeable to this plan of care. Case discussed with Dr. Baez - Lab Data Result diagrams: 01/31/21 18:08 01/31/21 18:08 Lab Results 01/31/21 01/31/21 01/31/21 Range/Units 18:08 18:08 18:08 WBC 5.4 (3.8-10.6) k/uL RBC 3.17 L (3.80-5.40) m/uL Hgb 10.5 L (11.4-16.0) gm/dL Hct 31.2 L (34.0-46.0) % MCV 98.4 (80.0-100.0) fL MCH 33.1 (25.0-35.0) pg MCHC 33.6 (31.0-37.0) g/dL RDW 13.1 (11.5-15.5) % Plt Count 228 (150-450) k/uL MPV 7.6 Neutrophils % 72 % Lymphocytes % 21 % Monocytes % 5 % Eosinophils % 1 % Basophils % 1 % Neutrophils # 3.9 (1.3-7.7) k/uL Lymphocytes # 1.1 (1.0-4.8) k/uL Monocytes # 0.3 (0-1.0) k/uL Eosinophils # 0.1 (0-0.7) k/uL Basophils # 0.0 (0-0.2) k/uL Sodium 136 L (137-145) mmol/L Potassium 3.3 L (3.5-5.1) mmol/L Chloride 105 (98-107) mmol/L Carbon Dioxide 21 L (22-30) mmol/L Anion Gap 10 mmol/L BUN 21 H (7-17) mg/dL Creatinine 1.51 H (0.52-1.04) mg/dL Est GFR (CKD-EPI)AfAm 41 (>60 ml/min/1.73 sqM) Est GFR (CKD-EPI)NonAf 36 (>60 ml/min/1.73 sqM) Glucose 106 H (74-99) mg/dL Plasma Lactic Acid Cristiano <0.5 L (0.7-2.0) mmol/L Calcium 9.3 (8.4-10.2) mg/dL Total Bilirubin 0.3 (0.2-1.3) mg/dL AST 18 (14-36) U/L ALT 7 (4-34) U/L Alkaline Phosphatase 73 (38-126) U/L C-Reactive Protein 3.7 H (<1.0) mg/dL Total Protein 6.4 (6.3-8.2) g/dL Albumin 3.9 (3.5-5.0) g/dL Lipase 28 (23-300) U/L Disposition Clinical Impression: Chronic low back pain with sciatica, Foot pain, bilateral Disposition: HOME SELF-CARE Condition: Good Instructions (If sedation given, give patient instructions): Chronic Back Pain (DC), Swollen Joint (ED), Lower Back Exercises (ED) Additional Instructions: Continue your medication as prescribed and follow-up with the primary care doctor next week. Continue medications as previously prescribed and return if worsening pain, fever or incontinence of bowel or bladder. Is patient prescribed a controlled substance at d/c from ED?: No Referrals: Meseret Haq MD [Primary Care Provider] - 1-2 days Time of Disposition: 19:45
[2021-01-31 19:00] LABS: Basophils % (A) 1 %; Eosinophils # (A) 0.1 k/uL (0-0.7); Eosinophils % (A) 1 %; HCT 31.2 % (34.0-46.0); HGB 10.5 gm/dL (11.4-16.0); Lymphocytes # (A) 1.1 k/uL (1.0-4.8); Lymphocytes % (A) 21 %; MCH 33.1 pg (25.0-35.0); MCHC 33.6 g/dL (31.0-37.0); MCV 98.4 fL (80.0-100.0); Mean Platelet Volume 7.6; Monocytes # (A) 0.3 k/uL (0-1.0); Monocytes % (A) 5 %; Neutrophils # (A) 3.9 k/uL (1.3-7.7); Neutrophils % (A) 72 %; Platelet Count 228 k/uL (150-450); RBC 3.17 m/uL (3.80-5.40); RDW 13.1 % (11.5-15.5); WBC 5.4 k/uL (3.8-10.6)
[2021-01-31 19:21] LABS: Albumin 3.9 g/dL (3.5-5.0); C Reactive Protein 3.7 mg/dL (<1.0); Calcium 9.3 mg/dL (8.4-10.2); Potassium 3.3 mmol/L (3.5-5.1); Total Bilirubin 0.3 mg/dL (0.2-1.3); Total Protein 6.4 g/dL (6.3-8.2)
[2021-01-31] MEDS ORDERED: POTASSIUM CHLORIDE ER 20 MEQ TAB.ER PO STA (19:30)
--- NOTE | 2021-01-31 19:31 | CT ---
EXAMINATION TYPE: CT abdomen pelvis wo con DATE OF EXAM: 01/31/2021 COMPARISON: 06/15/2020 HISTORY: Low back pain CT DLP: 359 mGycm Automated exposure control for dose reduction was used. The lung bases are clear. There is no pleural effusion. There is posterior right side diaphragmatic h ernia that contains small amount of fat. Heart size is normal. There is no pericardial effusion. Live r spleen stomach pancreas gallbladder appear intact. The bile ducts are not dilated. There is no adrenal mass. Kidneys have normal size. There is no hydronephrosis. Ureters are not dilat ed. There is no retroperitoneal adenopathy. Bladder distends smoothly. There are pins fixing old frac ture of the right femoral neck. The bony pelvis is intact. There is no evidence of a pelvic mass. The re is hysterectomy. There is no free fluid in the pelvis. There are clips apparently from appendectomy. There is no mesenteric edema. There is no ascites or fr ee air. There is no bowel obstruction. There is retained fecal material in the large bowel. There are apparent decreased number of small bowel loops that could be tibia surgery. The lumbar vertebra have normal alignment. There is no compression fracture. There is some posterior fusion surgery at L5-S1. IMPRESSION: Previous surgery. No acute abnormality in the abdomen pelvis. Constipation. There is clearing of the dilated large bowel loops with fluid levels compared to old exam. There is apparent clearing of the l arge bowel ileus.
[2021-01-31] MEDS ORDERED: MORPHINE SULFATE 4 MG/ML SYRINGE IVP STA (19:45)
[2021-01-31 21:34] VITALS: BP 171/71; PULSE 65; RESP 16; TEMP 97.8
== END 2021-01-31 21:15 | disposition home or self-care (01) ==
LOC: EC 17:11
DX: M54.42 Lumbago with sciatica, left side (principal); M54.41 Lumbago with sciatica, right side; M79.671 Pain in right foot; M79.672 Pain in left foot; G89.29 Other chronic pain; J44.9 Chronic obstructive pulmonary disease, unspecified; I10 Essential (primary) hypertension; M79.7 Fibromyalgia; F17.200 Nicotine dependence, unspecified, uncomplicated; N23 Unspecified renal colic; Z86.73 Personal history of transient ischemic attack (TIA), and cerebral infarction without residual deficits; Z88.6 Allergy status to analgesic agent; Z88.8 Allergy status to other drugs, medicaments and biological substances; Z88.0 Allergy status to penicillin; Z91.018 Allergy to other foods; Z88.2 Allergy status to sulfonamides; Z88.1 Allergy status to other antibiotic agents; Z79.899 Other long term (current) drug therapy
CPT/HCPCS: 80053; 83605; 83690; 85025; 86140; 74176; 99284; 96374; 96376; 96361; J2270

== ENCOUNTER 2021-02-08 13:20 | Inpatient (IN) | payer MEDICARE, OTHER ==
[2021-02-08] MEDS ORDERED: SODIUM CHLORIDE 0.9% 1,000 ML IV STA (14:23)
[2021-02-08] MEDS ORDERED: MORPHINE SULFATE 4 MG/ML SYRINGE IVP STA (14:49)
[2021-02-08 14:56] LABS: Basophils % (A) 0 %; Eosinophils % (A) 0 %; HCT 26.9 % (34.0-46.0); Lymphocytes # (A) 0.9 k/uL (1.0-4.8); Lymphocytes % (A) 14 %; MCH 32.6 pg (25.0-35.0); MCHC 33.4 g/dL (31.0-37.0); MCV 97.5 fL (80.0-100.0); Mean Platelet Volume 8.4; Monocytes # (A) 0.3 k/uL (0-1.0); Monocytes % (A) 5 %; Neutrophils # (A) 5.3 k/uL (1.3-7.7); Neutrophils % (A) 80 %; Platelet Count 239 k/uL (150-450); RBC 2.76 m/uL (3.80-5.40); RDW 13.4 % (11.5-15.5); WBC 6.6 k/uL (3.8-10.6)
[2021-02-08 15:12] LABS: Albumin 3.7 g/dL (3.5-5.0); Calcium 9.2 mg/dL (8.4-10.2); Potassium 3.5 mmol/L (3.5-5.1); Total Bilirubin 0.2 mg/dL (0.2-1.3); Total Protein 6.2 g/dL (6.3-8.2)
[2021-02-08 15:44] LABS: Amorphous Sediment,Urine Rare /hpf; Appearance,Urine Clear (Clear); Bacteria,Urine Rare /hpf; Bilirubin,Urine Negative (Negative); Blood,Urine Small (Negative); Color,Urine Light Yellow; Glucose,Urine (UA) Negative (Negative); Ketones,Urine Negative (Negative); Leukocyte Esterase,Urine Negative (Negative); Mucus,Urine Rare /hpf; Nitrite,Urine Negative (Negative); PH, Urine 6.5 (5.0-8.0); Protein,Urine Negative (Negative); RBC,Urine 6 /hpf (0-5); Specific Gravity,Urine 1.006 (1.001-1.035); Squamous Epithelial Cell,Urine 1 /hpf (0-4); Urobilinogen,Urine <2.0 mg/dL (<2.0); WBC,Urine 1 /hpf (0-5)
[2021-02-08] MEDS ORDERED: NALOXONE 0.4 MG/ML 1 ML VIAL IV PRN (16:17)
--- NOTE | 2021-02-08 16:18 | ED ---
Recheck HPI - General Chief Complaint: Recheck/Abnormal Lab/Rx Stated Complaint: erythema nodosum, sent from Time Seen by Provider: 02/08/21 14:18 Source: patient, RN notes reviewed Mode of arrival: ambulatory Limitations: no limitations - History of Present Illness Initial Comments: Patient is a [age] female that presents emergency department complaining of bilateral lower extremities pain. She was recently seen her primary care's office diagnosed with erythema nodosum and given some steroids. She was told to come the emergency room if symptoms worsened. She was told by her primary care that she should come emergency room to get admitted for IV antibiotics and pain control. She denied any other issues or complaints at this time. She was otherwise well-appearing 65-year-old female patient denied any chest pain shortness of breath headache nausea vomiting diarrhea constipation fever fatigue chills. - Related Data Home Medications Medication Instructions Recorded Confirmed DULoxetine HCL [Cymbalta] 60 mg PO DAILY 05/24/17 01/31/21 Folic Acid 1 mg PO DAILY 05/24/17 01/31/21 Magnesium Oxide [Mag-Ox] 400 mg PO BID 05/24/17 01/31/21 traZODone HCL 150 mg PO HS 02/27/18 01/31/21 Dicyclomine [Bentyl] 20 mg PO TID 07/10/18 01/31/21 Albuterol Sulfate [Proair Hfa] 1 puff INHALATION RT-Q4H PRN 10/20/19 01/31/21 Sodium Bicarbonate Tab 650 mg PO BID 10/20/19 01/31/21 Famotidine [Pepcid] 20 mg PO BID 11/06/19 01/31/21 Lipase/Protease/Amylase [Zenpep Dr 80,000 units PO TID-W/MEALS 11/06/19 01/31/21 40,000 Unit Capsule] Loperamide HCl [Imodium A-D] 2 mg PO TID PRN 11/06/19 01/31/21 HYDROcodone/APAP 5-325MG [[place] 1 tab PO BID PRN 06/22/20 01/31/21 5-325] QUEtiapine [SEROquel] 50 mg PO HS 06/22/20 01/31/21 Ergocalciferol (Vitamin D2) 1,250 mcg PO Q14D 01/31/21 01/31/21 [Drisdol (50,000 Iu)] carisoprodoL [Soma] 350 mg PO HS 01/31/21 01/31/21 Previous Rx's Medication Instructions Recorded ALPRAZolam [Xanax] 0.5 mg PO BID #6 tab 11/11/19 Gabapentin [Neurontin] 300 mg PO TID #9 cap 11/11/19 Allergies Allergy/AdvReac Type Severity Reaction Status Date / Time alcohol Allergy Vomiting Verified 02/08/21 14:10 aspirin Allergy Unknown Verified 02/08/21 14:10 divalproex sodium Allergy Unknown Verified 02/08/21 14:10 [From Depakote] erythromycin base Allergy Unknown Verified 02/08/21 14:10 ketorolac [From Toradol] Allergy Unknown Verified 02/08/21 14:10 Penicillins Allergy Unknown Verified 02/08/21 14:10 shellfish derived [Shellfish] Allergy Unknown Verified 02/08/21 14:10 strawberry Allergy Unknown Verified 02/08/21 14:10 Sulfa (Sulfonamide Allergy Unknown Verified 02/08/21 14:10 Antibiotics) Review of Systems ROS Statement: Those systems with pertinent positive or pertinent negative responses have been documented in the HPI. ROS Other: All systems not noted in ROS Statement are negative. Past Medical History Past Medical History: Cancer, COPD, CVA/TIA, Fibromyalgia, Hypertension Additional Past Medical History / Comment(s): Lupus, TIA, right hand tendons severed, closed head injury, multiple sclerosis, short bowel syndrome, pancreatic insufficiency, bowel cancer History of Any Multi-Drug Resistant Organisms: C-DIFF Date of last positivie culture/infection: 2014 MDRO Source:: patient Past Surgical History: Appendectomy, Back Surgery, Section, Orthopedic Surgery Additional Past Surgical History / Comment(s): stomach cancer, right hemicolectomy and small bowel resection Past Anesthesia/Blood Transfusion Reactions: No Reported Reaction Past Psychological History: Anxiety, Bipolar, Depression, PTSD Smoking Status: Current every day smoker Past Alcohol Use History: None Reported Past Drug Use History: None Reported - Past Family History Father Additional Family Medical History / Comment(s): Father has history of diabetes and stomach problems. Mother Additional Family Medical History / Comment(s): Mother has history of diabetes, coronary artery disease and COPD. Sister(s) Additional Family Medical History / Comment(s): Patient has sisters all have female problems. She does state there is breast cancer history in her aunt. Son(s) Family Medical History: No Reported History Additional Family Medical History / Comment(s): Patient has one son with no major medical problems. General Exam Limitations: no limitations General appearance: alert, in no apparent distress Head exam: Present: atraumatic, normocephalic, normal inspection Eye exam: Present: normal appearance, PERRL, EOMI. Absent: scleral icterus, conjunctival injection, periorbital swelling Neck exam: Present: normal inspection Respiratory exam: Present: normal lung sounds bilaterally. Absent: respiratory distress, wheezes, rales, rhonchi, stridor Cardiovascular Exam: Present: regular rate, normal rhythm, normal heart sounds. Absent: systolic murmur, diastolic murmur, rubs, gallop, clicks Extremities exam: Present: normal inspection, full ROM, tenderness (Lateral lower extremity), normal capillary refill, other (Both feet are erythematous, 1+ edema.). Absent: pedal edema, joint swelling, calf tenderness Neurological exam: Present: alert, oriented X3 Psychiatric exam: Present: normal affect, normal mood Skin exam: Present: warm, dry, intact, normal color. Absent: rash Course Vital Signs 02/08/21 14:05 Temperature 98.2 F Pulse Rate 87 Respiratory 18 Rate Blood Pressure 162/92 O2 Sat by Pulse 98 Oximetry Medical Decision Making - Medical Decision Making 65-year-old female presenting to get admitted for pain control and antibiotic therapy from Dr. Haq. Basic labs ordered. Case discussed with Dr. Burns, patient will be admitted. Dr. Haq was consulted AT the admit and wants patient started on 40 mg of Solu- Medrol every 8 and Keflex 1 g every 8. - Lab Data Result diagrams: 02/08/21 14:45 02/08/21 14:45 Lab Results 02/08/21 02/08/21 02/08/21 Range/Units 14:45 14:45 14:45 WBC 6.6 (3.8-10.6) k/uL RBC 2.76 L (3.80-5.40) m/uL Hgb 9.0 L D (11.4-16.0) gm/dL Hct 26.9 L (34.0-46.0) % MCV 97.5 (80.0-100.0) fL MCH 32.6 (25.0-35.0) pg MCHC 33.4 (31.0-37.0) g/dL RDW 13.4 (11.5-15.5) % Plt Count 239 (150-450) k/uL MPV 8.4 Neutrophils % 80 % Lymphocytes % 14 % Monocytes % 5 % Eosinophils % 0 % Basophils % 0 % Neutrophils # 5.3 (1.3-7.7) k/uL Lymphocytes # 0.9 L (1.0-4.8) k/uL Monocytes # 0.3 (0-1.0) k/uL Eosinophils # 0.0 (0-0.7) k/uL Basophils # 0.0 (0-0.2) k/uL Sodium 135 L (137-145) mmol/L Potassium 3.5 (3.5-5.1) mmol/L Chloride 105 (98-107) mmol/L Carbon Dioxide 20 L (22-30) mmol/L Anion Gap 10 mmol/L BUN 16 (7-17) mg/dL Creatinine 1.19 H (0.52-1.04) mg/dL Est GFR (CKD-EPI)AfAm 55 (>60 ml/min/1.73 sqM) Est GFR (CKD-EPI)NonAf 47 (>60 ml/min/1.73 sqM) Glucose 96 (74-99) mg/dL Calcium 9.2 (8.4-10.2) mg/dL Total Bilirubin 0.2 (0.2-1.3) mg/dL AST 15 (14-36) U/L ALT 6 (4-34) U/L Alkaline Phosphatase 75 (38-126) U/L Total Protein 6.2 L (6.3-8.2) g/dL Albumin 3.7 (3.5-5.0) g/dL Urine Color Light Yellow Urine Appearance Clear (Clear) Urine pH 6.5 (5.0-8.0) Ur Specific [place] 1.006 (1.001-1.035) Urine Protein Negative (Negative) Urine Glucose (UA) Negative (Negative) Urine Ketones Negative (Negative) Urine Blood Small H (Negative) Urine Nitrite Negative (Negative) Urine Bilirubin Negative (Negative) Urine Urobilinogen <2.0 (<2.0) mg/dL Ur Leukocyte Esterase Negative (Negative) Urine RBC 6 H (0-5) /hpf Urine WBC 1 (0-5) /hpf Ur Squamous Epith Cells 1 (0-4) /hpf Amorphous Sediment Rare H (None) /hpf Urine Bacteria Rare H (None) /hpf Urine Mucus Rare H (None) /hpf Disposition Clinical Impression: Erythema nodosum Disposition: ADMITTED IP TO THIS HOSP Condition: Stable Is patient prescribed a controlled substance at d/c from ED?: No Referrals: Meseret Haq MD [Primary Care Provider] - 1-2 days Time of Disposition: 16:18
[2021-02-08] MEDS ORDERED: cefTRIAXone IN SWFI 1,000 MG/10 ML SYRINGE IVP SCH (16:30)
[2021-02-08] MEDS: SODIUM CHLORIDE 0.9% 1,000 ML IV SCH (17:09)
[2021-02-08] MEDS: MORPHINE SULFATE 4 MG/ML SYRINGE IV PRN ×2 (17:12→21:59)
[2021-02-08] MEDS: methylPREDNISolone SOD SUCCI 40 MG/ML 1 ML VIAL IV SCH (17:12)
[2021-02-08] MEDS ORDERED: LABETALOL 5 MG/ML VIAL MDV IVP STA (17:26)
[2021-02-08] MEDS ORDERED: hydrALAZINE HCL 20 MG/ML 1 ML VIAL IVP STA (17:54)
[2021-02-08] MEDS ORDERED: LOPERAMIDE 2 MG CAP PO PRN (18:57)
[2021-02-08] MEDS ORDERED: HYDROcodone/APAP 5-325MG 1 EACH TAB PO PRN (18:57)
[2021-02-08] MEDS ORDERED: ALBUTEROL NEBULIZED 2.5 MG/3 ML INHALATION PRN (18:57)
[2021-02-08] MEDS: SODIUM BICARBONATE TAB 650 MG TAB PO SCH (20:28)
[2021-02-08] MEDS: TRIAMCINOLONE 0.1% CREAM 80 GM TUBE TOPICAL SCH (20:28)
[2021-02-08] MEDS: ALPRAZolam 0.5 MG TAB PO SCH (21:57)
[2021-02-08] MEDS: FAMOTIDINE 20 MG TAB PO SCH (21:58)
[2021-02-08] MEDS: GABAPENTIN 300 MG CAP PO SCH (21:58)
[2021-02-08] MEDS: MAGNESIUM OXIDE 400 MG TAB PO SCH (21:58)
[2021-02-08] MEDS: DICYCLOMINE 20 MG TAB PO SCH (21:58)
[2021-02-08] MEDS: carisoprodoL 350 MG TAB PO SCH (22:17)
[2021-02-09] MEDS: methylPREDNISolone SOD SUCCI 40 MG/ML 1 ML VIAL IV SCH ×3 (00:11→16:31)
[2021-02-09] MEDS: SODIUM CHLORIDE 0.9% 1,000 ML IV SCH ×2 (00:12→11:51)
[2021-02-09] MEDS: HEPARIN SODIUM,PORCINE/PF 5,000 UNIT/0.5 ML SYRINGE SQ SCH ×3 (00:12→16:31)
[2021-02-09] MEDS: MORPHINE SULFATE 4 MG/ML SYRINGE IV PRN ×5 (02:31→21:10)
[2021-02-09] MEDS: MAGNESIUM OXIDE 400 MG TAB PO SCH ×2 (08:10→21:07)
[2021-02-09] MEDS: ALPRAZolam 0.5 MG TAB PO SCH ×2 (08:10→21:06)
[2021-02-09] MEDS: GABAPENTIN 300 MG CAP PO SCH ×3 (08:10→21:07)
[2021-02-09] MEDS: FOLIC ACID 1 MG TAB PO SCH (08:10)
[2021-02-09] MEDS: DICYCLOMINE 20 MG TAB PO SCH ×3 (08:11→21:09)
[2021-02-09] MEDS: SODIUM BICARBONATE TAB 650 MG TAB PO SCH ×2 (08:11→21:08)
[2021-02-09] MEDS: FAMOTIDINE 20 MG TAB PO SCH (08:11)
[2021-02-09] MEDS: DULoxetine HCL 30 MG CAPSULE.DR PO SCH (08:11)
[2021-02-09] MEDS: TRIAMCINOLONE 0.1% CREAM 80 GM TUBE TOPICAL SCH ×2 (08:17→21:09)
--- NOTE | 2021-02-09 08:17 | P.HPIM ---
History of Present Illness H&P Date: 02/08/21 Chief Complaint: bilateral lower extremity cellulitis, erythema nodosum HISTORY OF PRESENT ILLNESS: this is a 65-year-old female one of my patient with abuse medical history significant for chronic pancreatitis, a plastic anemia, lupus anticoagulant, history of chronic kidney disease stage III A, GERD, diverticulitis, recurrent bowel obstruction, major depressive disorder, spondylosis of the lumbar spine, patient was seen in my office on 02/03/2021 and she was complaining of increased pain in both lower extremity is with discolored feet she did have a painful nodules on the lower extremities and she was diagnosed with erythema nodosum, she was prescribed Medrol Dosepak as well as mometasone furoate 0.1% cream to be applied once every day, keep the leg e levated and apply asked as needed, patient called the office today stated that she is a severe amount of pain in both lower extremity and she has been crying and with increased redness and swelling in both lower extremity is she was rectal to go to the ER for IV steroid as well as IV antibiotic and she was seen in the ER at [facility] her laboratory evaluation was not very impressive she has chronic anemia due to her plastic anemia, she was started on IV antibiotic in the form of Solar 1 g IV piggyback every 8 hours as well as Solu-Medrol 40 mg IV push every 8 hours and she was admitted to the hospital for failed outpatient treatment. REVIEW OF SYSTEMS: Constitutional: No documented fever, no chills, no night sweats. No weight change. No weakness, fatigue or lethargy. No daytime sleepiness. HEENT: No headache. No blurred vision or double vision, no loss of vision. No loss of Hearing, no ringing in the ears, no dizziness. No nasal drainage or congestion. No epistaxis. No sore throat. Lungs: No shortness of breath, occasional cough, no sputum production. No wheezing. Reports dyspnea with activity. Cardiovascular: No chest pain, no lower extremity edema. No palpitations. No paroxysmal nocturnal dyspnea. No orthopnea. No lightheadedness or dizziness. No syncopal episodes. Abdominal: Reports abdominal pain. No nausea, vomiting. No diarrhea. No constipation. No bloody or tarry stools reports loss of appetite. Genitourinary: No dysuria, increased frequency, urgency. No urinary retention. Musculoskeletal: No myalgias. positive for muscle weakness, no gait dysfunction, no frequent falls. positive fpr back pain. No neck pain. Integumentary: No wounds, positive for red rash to lower extremities and warmth to touch positive for bruising. No change in hair or nails. Neurologic: No aphasia. No facial droop. No change in mentation. No head injury. No headache. No paralysis. No paresthesia. Psychiatric: No depression. No anxiety. No mood swings. Endocrine: No abnormal blood sugars. No weight change. PAST MEDICAL HISTORY: chronic kidney disease stage III a Aplastic anemia. Vitamin D deficiency. Chronic pancreatitis. Lupus anticoagulant. Erythema nodosum. Spondylosis of the lumbar spine. Peripheral neuropathy. Osteoporosis. GERD. Anxiety. Chronic pain syndrome. PAST SURGICAL HISTORY: multiple small bowel obstruction with exploratory laparotomy and lysis of adhesion Bilateral great toes ingrown toenail 2019 . Neck surgery. . Right hemicolectomy with small bowel resection SOCIAL HISTORY: Patient smokes about half a pack every day since she was 11-year-old, she denies any alcohol ingestion, no drug abuse. FAMILY HISTORY: father at age of 92 from congestive heart failure and diabetes, mother at age of 90 from diabetes and partial lobectomy, patient has one brother who is alive 6-year-old with throat cancer patient has one sister 69-year-old health issues does not know patient has a son who is 43-year-old and work as a an RN PHYSICAL EXAMINATION: General: 65-year-old female laying down in bed in minimal distress. HEENT: Head is atraumatic, normocephalic, pupils were equal round reactive to light and recommendation, extraocular muscle movement were intact, sclera nonicteric, conjunctivae were pale, mucous membranes of the mouth are somewhat dry. Neck: Supple, no JVP, normal carotid upstroke bilaterally, no lymphadenopathy. Chest: Decreased breath sounds at the bases, few rhonchi, no expiratory wheezes, no chest wall tenderness, no intercostal retractions. Heart: First heart sound is normal, second heart sounds normal Abdomen: Soft, nontender, nondistended, positive bowel sounds. Extremities: There is increased edema to both lower extremity is with increased erythema and bruising from the leg all the way down to the feet dorsalis pedis +2 bilaterally, Neurologic examination: Patient is awake alert and oriented X3, cranial nerves II-12 appear grossly intact, muscle power were 5 out of 5 in upper extremities and 5 out of 5 in bilateral lower extremities, deep tendon reflexes normal bilaterally. ASSESSMENT AND PLAN: 1. bilateral lower extremity cellulitis. Start the patient on Ancef 1 g IV piggyback every 8 hours, keep the leg elevated, continue to monitor the patient very closely. 2. Erythema nodosum. Start the patient on Solu-Medrol 40 mg IV push every 8 hours, keep the leg elevated, apply mometasone cream 0.0% to be applied once every day. 3. Chronic kidney disease stage IIIa. Avoid nephrotoxins, monitor the patient CMP , continue sodium bicarbonate 650 mg orally twice every day. 4. History of a plastic anemia seems to be stable at this time patient has been getting iron infusions as an outpatient along with vitamin B12 supplement. 5. GERD.continue patient on Pepcid 20 mg orally twice every day. 6. 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 Continue loperamide 2 mg orally 3 times every day.continue with Zenpep twice every day. 7. 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 Continue gabapentin 300 mg orally 3 times every day, continue patient on Soma 350 mg orally twice every day,continue hydrocodone as needed. 8. Insomnia. Continue patient on Seroquel XR 150 mg orally once every day. 9. vitamin D deficiency. Continue vitamin D2 50,000 units twice a month. 10. Major depressive disorder. Continue patient on Cymbalta 90 mg orally once every day. 11. DVT prophylaxis. Heparin 5000 units subcutaneously every 8 hours. 12. GI prophylaxis. Continue Pepcid 20 mg orally twice every day. 13. Admit to inpatient. Estimate a length of stay 2 midnights. 14. Patient is full code. Past Medical History Past Medical History: Cancer, COPD, CVA/TIA, Fibromyalgia, Hypertension Additional Past Medical History / Comment(s): Lupus, TIA, right hand tendons severed, closed head injury, multiple sclerosis, short bowel syndrome, pancreatic insufficiency, bowel cancer History of Any Multi-Drug Resistant Organisms: C-DIFF Date of last positivie culture/infection: 2014 MDRO Source:: patient Past Surgical History: Appendectomy, Back Surgery, Section, Orthopedic Surgery Additional Past Surgical History / Comment(s): stomach cancer, right hemicolectomy and small bowel resection Past Anesthesia/Blood Transfusion Reactions: No Reported Reaction Past Psychological History: Anxiety, Bipolar, Depression, PTSD Smoking Status: Current every day smoker Past Alcohol Use History: None Reported Past Drug Use History: None Reported - Past Family History Father Additional Family Medical History / Comment(s): Father has history of diabetes and stomach problems. Mother Additional Family Medical History / Comment(s): Mother has history of diabetes, coronary artery disease and COPD. Sister(s) Additional Family Medical History / Comment(s): Patient has sisters all have female problems. She does state there is breast cancer history in her aunt. Son(s) Family Medical History: No Reported History Additional Family Medical History / Comment(s): Patient has one son with no major medical problems. Medications and Allergies Home Medications Medication Instructions Recorded Confirmed Type DULoxetine HCL [Cymbalta] 60 mg PO DAILY 05/24/17 02/08/21 History Folic Acid 1 mg PO DAILY 05/24/17 02/08/21 History Magnesium Oxide [Mag-Ox] 400 mg PO BID 05/24/17 02/08/21 History traZODone HCL 150 mg PO HS 02/27/18 02/08/21 History Dicyclomine [Bentyl] 20 mg PO TID 07/10/18 02/08/21 History Albuterol Sulfate [Proair Hfa] 1 puff INHALATION RT-Q4H PRN 10/20/19 02/08/21 History Sodium Bicarbonate Tab 650 mg PO BID 10/20/19 02/08/21 History Famotidine [Pepcid] 20 mg PO BID 11/06/19 02/08/21 History Lipase/Protease/Amylase [Zenpep Dr 80,000 units PO TID-W/MEALS 11/06/19 02/08/21 History 40,000 Unit Capsule] Loperamide HCl [Imodium A-D] 2 mg PO TID PRN 11/06/19 02/08/21 History ALPRAZolam [Xanax] 0.5 mg PO BID #6 tab 11/11/19 02/08/21 Rx Gabapentin [Neurontin] 300 mg PO TID #9 cap 11/11/19 02/08/21 Rx HYDROcodone/APAP 5-325MG [[place] 1 tab PO BID PRN 06/22/20 02/08/21 History 5-325] QUEtiapine [SEROquel] 50 mg PO HS 06/22/20 02/08/21 History Ergocalciferol (Vitamin D2) 1,250 mcg PO Q14D 01/31/21 02/08/21 History [Drisdol (50,000 Iu)] carisoprodoL [Soma] 350 mg PO HS 01/31/21 02/08/21 History Allergies Allergy/AdvReac Type Severity Reaction Status Date / Time alcohol Allergy Vomiting Verified 02/08/21 17:20 aspirin Allergy Unknown Verified 02/08/21 17:20 divalproex sodium Allergy Unknown Verified 02/08/21 17:20 [From Depakote] erythromycin base Allergy Unknown Verified 02/08/21 17:20 ketorolac [From Toradol] Allergy Unknown Verified 02/08/21 17:20 Penicillins Allergy Unknown Verified 02/08/21 17:20 shellfish derived [Shellfish] Allergy Unknown Verified 02/08/21 17:20 strawberry Allergy Unknown Verified 02/08/21 17:20 Sulfa (Sulfonamide Allergy Unknown Verified 02/08/21 17:20 Antibiotics) Physical Exam Vitals: Vital Signs Temp Pulse Resp BP Pulse Ox 02/08/21 18:08 59 L 18 173/86 100 02/08/21 17:22 60 18 186/88 99 02/08/21 14:05 98.2 F 87 18 162/92 98 Intake and Output 02/08/21 02/08/21 02/08/21 06:59 14:59 22:59 Other: Weight 56.699 kg Results CBC & Chem 7: 02/08/21 14:45 02/08/21 14:45 Labs: Abnormal Lab Results - Last 24 Hours (Table) 02/08/21 02/08/21 02/08/21 Range/Units 14:45 14:45 14:45 RBC 2.76 L (3.80-5.40) m/uL Hgb 9.0 L D (11.4-16.0) gm/dL Hct 26.9 L (34.0-46.0) % Lymphocytes # 0.9 L (1.0-4.8) k/uL Sodium 135 L (137-145) mmol/L Carbon Dioxide 20 L (22-30) mmol/L Creatinine 1.19 H (0.52-1.04) mg/dL Total Protein 6.2 L (6.3-8.2) g/dL Urine Blood Small H (Negative) Urine RBC 6 H (0-5) /hpf Amorphous Sediment Rare H (None) /hpf Urine Bacteria Rare H (None) /hpf Urine Mucus Rare H (None) /hpf
[2021-02-09] MEDS: [UNRECOGNIZED DRUG - OTHER] PO SCH ×3 (09:48→17:50)
[2021-02-09] MEDS: PROTEASE PO SCH ×3 (09:48→17:50)
[2021-02-09] MEDS: LIPASE PO SCH ×3 (09:48→17:50)
[2021-02-09] MEDS: AMYLASE PO SCH ×3 (09:48→17:50)
[2021-02-09 10:56] LABS: Basophils # (A) 0.01 X 10*3/uL (0.00-0.10); Basophils % (A) 0.2 %; Eosinophils # (A) 0 X 10*3/uL (0.04-0.35); Eosinophils % (A) 0 %; HCT 30.9 % (37.2-46.3); HGB 9.5 g/dL (12.0-15.0); Lymphocytes # (A) 0.69 X 10*3/uL (0.90-5.00); Lymphocytes % (A) 13.6 %; MCH 31.5 pg (27.0-32.0); MCHC 30.7 g/dL (32.0-37.0); MCV 102.3 fL (80.0-97.0); Mean Platelet Volume 9.7 fL (9.5-12.2); Monocytes # (A) 0.05 X 10*3/uL (0.20-1.00); Neutrophils # (A) 4.28 X 10*3/uL (1.80-7.70); Neutrophils % (A) 84.2 %; Platelet Count 220 X 10*3/uL (140-440); RBC 3.02 X 10*6/uL (4.10-5.20); RDW 13.5 % (11.5-14.5); WBC 5.08 X 10*3/uL (4.50-10.00)
[2021-02-09 12:16] LABS: African American GFR (CKD) 60.2 (60.0-200.0); BUN/Creat Ratio 13.64 Ratio (12.00-20.00); Calcium 8.8 mg/dL (8.7-10.3); Carbon Dioxide 16.8 mmol/L (21.6-31.8); Chloride 108 mmol/L (96-109); Glucose 129 mg/dL (70-110); Non-African American GFR(CKD) 51.9 (60.0-200.0); Potassium 4.1 mmol/L (3.5-5.5); Sodium 139 mmol/L (135-145); Total Protein 6.4 g/dL (6.2-8.2)
[2021-02-09 12:17] LABS: ALT <8 U/L (8-44); AST 17 U/L (13-35); Albumin/Globulin Ratio 1.91 (1.60-3.17); Alkaline Phosphatase 75 U/L (41-126); Globulin 2.2 g/dL (1.6-3.3); Total Bilirubin 0.1 mg/dL (0.3-1.2)
[2021-02-09] MEDS: carisoprodoL 350 MG TAB PO SCH (21:06)
[2021-02-09] MEDS: QUEtiapine 50 MG TAB PO SCH (21:08)
[2021-02-10] MEDS: HEPARIN SODIUM,PORCINE/PF 5,000 UNIT/0.5 ML SYRINGE SQ SCH ×4 (00:29→23:39)
[2021-02-10] MEDS: methylPREDNISolone SOD SUCCI 40 MG/ML 1 ML VIAL IV SCH ×3 (00:29→14:41)
[2021-02-10] MEDS: MORPHINE SULFATE 4 MG/ML SYRINGE IV PRN ×5 (01:42→19:22)
[2021-02-10] MEDS: SODIUM CHLORIDE 0.9% 1,000 ML IV SCH (05:21)
[2021-02-10] MEDS: [UNRECOGNIZED DRUG - OTHER] PO SCH ×3 (08:13→18:10)
[2021-02-10] MEDS: LIPASE PO SCH ×3 (08:13→18:10)
[2021-02-10] MEDS: AMYLASE PO SCH ×3 (08:13→18:10)
[2021-02-10] MEDS: PROTEASE PO SCH ×3 (08:13→18:10)
[2021-02-10] MEDS: ALPRAZolam 0.5 MG TAB PO SCH ×2 (08:14→19:23)
[2021-02-10] MEDS: MAGNESIUM OXIDE 400 MG TAB PO SCH ×2 (08:14→21:46)
[2021-02-10] MEDS: GABAPENTIN 300 MG CAP PO SCH ×3 (08:15→21:46)
[2021-02-10] MEDS: DULoxetine HCL 30 MG CAPSULE.DR PO SCH (08:15)
[2021-02-10] MEDS: FAMOTIDINE 20 MG TAB PO SCH (08:15)
[2021-02-10] MEDS: FOLIC ACID 1 MG TAB PO SCH (08:15)
[2021-02-10] MEDS: DICYCLOMINE 20 MG TAB PO SCH ×3 (08:16→21:46)
[2021-02-10] MEDS: SODIUM BICARBONATE TAB 650 MG TAB PO SCH ×2 (08:16→21:46)
[2021-02-10] MEDS: TRIAMCINOLONE 0.1% CREAM 80 GM TUBE TOPICAL SCH ×2 (08:23→21:47)
[2021-02-10 08:50] LABS: Basophils # (A) 0.01 X 10*3/uL (0.00-0.10); Basophils % (A) 0.1 %; Eosinophils # (A) 0 X 10*3/uL (0.04-0.35); Eosinophils % (A) 0 %; HCT 24.7 % (37.2-46.3); HGB 7.9 g/dL (12.0-15.0); Lymphocytes # (A) 0.67 X 10*3/uL (0.90-5.00); MCH 31.9 pg (27.0-32.0); MCV 99.6 fL (80.0-97.0); Mean Platelet Volume 9.7 fL (9.5-12.2); Monocytes # (A) 0.22 X 10*3/uL (0.20-1.00); Neutrophils # (A) 10.23 X 10*3/uL (1.80-7.70); Neutrophils % (A) 90.8 %; Platelet Count 231 X 10*3/uL (140-440); RBC 2.48 X 10*6/uL (4.10-5.20); RDW 13.9 % (11.5-14.5); WBC 11.25 X 10*3/uL (4.50-10.00)
[2021-02-10 09:57] LABS: ALT <8 U/L (8-44); AST 12 U/L (13-35); African American GFR (CKD) 54.2 (60.0-200.0); Albumin/Globulin Ratio 1.94 (1.60-3.17); Alkaline Phosphatase 60 U/L (41-126); BUN/Creat Ratio 18.33 Ratio (12.00-20.00); Calcium 7.8 mg/dL (8.7-10.3); Chloride 106 mmol/L (96-109); Globulin 1.8 g/dL (1.6-3.3); Glucose 124 mg/dL (70-110); Non-African American GFR(CKD) 46.7 (60.0-200.0); Sodium 136 mmol/L (135-145); Total Bilirubin 0.1 mg/dL (0.2-1.2); Total Protein 5.3 g/dL (6.2-8.2)
--- NOTE | 2021-02-10 17:32 | P.PN ---
Subjective Progress Note Date: 02/09/21 Progress note: 02/09/2021 Chief Complaint: bilateral lower extremity cellulitis, erythema nodosum HISTORY OF PRESENT ILLNESS: this is a 65-year-old female one of my patient with abuse medical history significant for chronic pancreatitis, a plastic anemia, lupus anticoag ulant, history of chronic kidney disease stage III A, GERD, diverticulitis, recurrent bowel obstruction, major depressive disorder, spondylosis of the lumbar spine, patient was seen in my office on 02/03/2021 and she was complaining of increased pain in both lower extremity is with discolored feet s he did have a painful nodules on the lower extremities and she was diagnosed with erythema nodosum, she was prescribed Medrol Dosepak as well as mometasone furoate 0.1% cream to be applied once every day, keep the leg elevated and apply asked as needed, patient called the office today stated that she is a severe amount of pain in both lower extremity and she has been crying and with increased redness and swelling in both lower extremity is she was rectal to go to the ER for IV steroid as well as IV antibiotic and she was seen in the ER at [facility] her laboratory evaluation was not very impressive she has chronic anemia due to her plastic anemia, she was started on IV antibiotic in the form of Solar 1 g IV piggyback every 8 hours as well as Solu-Medrol 40 mg IV push every 8 hours and she was admitted to the hospital for failed outpatient treatment. 02/09: Patient is feeling about the same, she did not sleep very well last night because she did not receive her cervical, she denies any chest pain or shortness breath, she has no abdominal pain, no nausea vomiting or diarrhea her swelling of the lower extremity and erythematous a lot better, she continues to have something in both lower extremities for which is getting morphine, we'll try to wean her off the morphine and start the patient back on her [place] only. REVIEW OF SYSTEMS: Constitutional: No documented fever, no chills, no night sweats. No weight change. No weakness, fatigue or lethargy. No daytime sleepiness. HEENT: No headache. No blurred vision or double vision, no loss of vision. No loss of Hearing, no ringing in the ears, no dizziness. No nasal drainage or congestion. No epistaxis. No sore throat. Lungs: No shortness of breath, occasional cough, no sputum production. No wheezing. Reports dyspnea with activity. Cardiovascular: No chest pain, no lower extremity edema. No palpitations. No paroxysmal nocturnal dyspnea. No orthopnea. No lightheadedness or dizziness. No syncopal episodes. Abdominal: Reports abdominal pain. No nausea, vomiting. No diarrhea. No constipation. No bloody or tarry stools reports loss of appetite. Genitourinary: No dysuria, increased frequency, urgency. No urinary retention. Musculoskeletal: No myalgias. positive for muscle weakness, no gait dysf unction, no frequent falls. positive fpr back pain. No neck pain. Integumentary: No wounds, positive for red rash to lower extremities and warmth to touch positive for bruising. No change in hair or nails. Neurologic: No aphasia. No facial droop. No change in mentation. No head injury. No headache. No paralysis. No paresthesia. Psychiatric: No depression. No anxiety. No mood swings. Endocrine: No abnormal blood sugars. No weight change. PHYSICAL EXAMINATION: General: 65-year-old female laying down in bed in minimal distress. HEENT: Head is atraumatic, normocephalic, pupils were equal round reactive to light and recommendation, extraocular muscle movement were intact, sclera nonicteric, conjunctivae were pale, mucous membranes of the mouth are somewhat dry. Neck: Supple, no JVP, normal carotid upstroke bilaterally, no lymphadenopathy. Chest: Decreased breath sounds at the bases, few rhonchi, no expiratory wheezes, no chest wall tenderness, no intercostal retractions. Heart: First heart sound is normal, second heart sounds normal Abdomen: Soft, nontender, nondistended, positive bowel sounds. Extremities: There is increased edema to both lower extremity is with increased erythema and bruising from the leg all the way down to the feet dorsalis pedis +2 bilaterally, Neurologic examination: Patient is awake alert and oriented X3, cranial nerves II-12 appear grossly intact, muscle power were 5 out of 5 in upper extremities and 5 out of 5 in bilateral lower extremities, deep tendon reflexes normal bilaterally. ASSESSMENT AND PLAN: 1. bilateral lower extremity cellulitis. Start the patient on Ancef 1 g IV piggyback every 8 hours, keep the leg elevated, continue to monitor the patient very closely. 2. Erythema nodosum. Continue patient on Solu-Medrol 40 mg IV push every 8 hours, keep the leg elevated, apply mometasone cream 0.0% to be applied once every day. 3. Chronic kidney disease stage IIIa. Avoid nephrotoxins, monitor the patient CMP , continue sodium bicarbonate 650 mg orally twice every day. 4. History of a plastic anemia seems to be stable at this time patient has been getting iron infusions as an outpatient along with vitamin B12 supplement. 5. GERD.continue patient on Pepcid 20 mg orally twice every day. 6. 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 Continue loperamide 2 mg orally 3 times every day.continue with Zenpep twice every day. 7. 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 Continue gabapentin 300 mg orally 3 times every day, continue patient on Soma 350 mg orally twice every day,continue hydrocodone as needed. 8. Insomnia. Continue patient on Seroquel XR 150 mg orally once every day. 9. vitamin D deficiency. Continue vitamin D2 50,000 units twice a month. 10. Major depressive disorder. Continue patient on Cymbalta 90 mg orally once every day. 11. DVT prophylaxis. Heparin 5000 units subcutaneously every 8 hours. 12. GI prophylaxis. Continue Pepcid 20 mg orally twice every day. 13. Physical therapy evaluation . increase activity. Objective - Vital Signs Vital signs: Vital Signs Temp 97.6 F 02/09/21 07:00 Pulse 58 L 02/09/21 07:00 Resp 17 02/09/21 07:00 BP 171/77 02/09/21 07:00 Pulse Ox 98 02/09/21 07:00 Intake & Output 02/08/21 02/09/21 02/09/21 18:59 06:59 18:59 Intake Total 237 Balance 237 Weight 56.699 kg Intake: Oral 237 Other: Voiding Method Toilet Diaper # Voids 2 - Labs CBC & Chem 7: 02/10/21 06:19 02/10/21 06:19 Labs: Abnormal Lab Results - Last 24 Hours (Table) 02/08/21 02/08/21 02/08/21 Range/Units 14:45 14:45 14:45 RBC 2.76 L (3.80-5.40) m/uL Hgb 9.0 L D (11.4-16.0) gm/dL Hct 26.9 L (34.0-46.0) % Lymphocytes # 0.9 L (1.0-4.8) k/uL Sodium 135 L (137-145) mmol/L Carbon Dioxide 20 L (22-30) mmol/L Creatinine 1.19 H (0.52-1.04) mg/dL Total Protein 6.2 L (6.3-8.2) g/dL Urine Blood Small H (Negative) Urine RBC 6 H (0-5) /hpf Amorphous Sediment Rare H (None) /hpf Urine Bacteria Rare H (None) /hpf Urine Mucus Rare H (None) /hpf
--- NOTE | 2021-02-10 18:23 | P.PN ---
Subjective Progress Note Date: 02/10/21 Progress note: 02/09/2021 Chief Complaint: bilateral lower extremity cellulitis, erythema nodosum HISTORY OF PRESENT ILLNESS: this is a 65-year-old female one of my patient with abuse medical history significant for chronic pancreatitis, a plastic anemia, lupus anticoag ulant, history of chronic kidney disease stage III A, GERD, diverticulitis, recurrent bowel obstruction, major depressive disorder, spondylosis of the lumbar spine, patient was seen in my office on 02/03/2021 and she was complaining of increased pain in both lower extremity is with discolored feet s he did have a painful nodules on the lower extremities and she was diagnosed with erythema nodosum, she was prescribed Medrol Dosepak as well as mometasone furoate 0.1% cream to be applied once every day, keep the leg elevated and apply asked as needed, patient called the office today stated that she is a severe amount of pain in both lower extremity and she has been crying and with increased redness and swelling in both lower extremity is she was rectal to go to the ER for IV steroid as well as IV antibiotic and she was seen in the ER at [facility] her laboratory evaluation was not very impressive she has chronic anemia due to her plastic anemia, she was started on IV antibiotic in the form of Solar 1 g IV piggyback every 8 hours as well as Solu-Medrol 40 mg IV push every 8 hours and she was admitted to the hospital for failed outpatient treatment. 02/09: Patient is feeling about the same, she did not sleep very well last night because she did not receive her cervical, she denies any chest pain or shortness breath, she has no abdominal pain, no nausea vomiting or diarrhea her swelling of the lower extremity and erythematous a lot better, she continues to have something in both lower extremities for which is getting morphine, we'll try to wean her off the morphine and start the patient back on her [place] only. 02/10: Patient is laying down in bed in no apparent distress, we'll discontinue morphine sulfate at this time discontinue IV fluid, continue patient on [place] 1 0/325 mg orally twice every day, discontinue supplemental start the patient on prednisone 40 mg once every day continue IV antibiotic for another 24 hours likely patient will be discharged home the next 24 hours. REVIEW OF SYSTEMS: Constitutional: No documented fever, no chills, no night sweats. No weight change. No weakness, fatigue or lethargy. No daytime sleepiness. HEENT: No headache. No blurred vision or double vision, no loss of vision. No loss of Hearing, no ringing in the ears, no dizziness. No nasal drainage or congestion. No epistaxis. No sore throat. Lungs: No shortness of breath, occasional cough, no sputum production. No wheezing. Reports dyspnea with activity. Cardiovascular: No chest pain, no lower extremity edema. No palpitations. No paroxysmal nocturnal dyspnea. No orthopnea. No lightheadedness or dizziness. No syncopal episodes. Abdominal: Reports abdominal pain. No nausea, vomiting. No diarrhea. No constipation. No bloody or tarry stools reports loss of appetite. Genitourinary: No dysuria, increased frequency, urgency. No urinary retention. Musculoskeletal: No myalgias. positive for muscle weakness, no gait dysfunction, no frequent falls. positive fpr back pain. No neck pain. Integumentary: No wounds, positive for red rash to lower extremities and warmth to touch positive for bruising. No change in hair or nails. Neurologic: No aphasia. No facial droop. No change in mentation. No head injury. No headache. No paralysis. No paresthesia. Psychiatric: No depression. No anxiety. No mood swings. Endocrine: No abnormal blood sugars. No weight change. PHYSICAL EXAMINATION: General: 65-year-old female laying down in bed in minimal distress. HEENT: Head is atraumatic, normocephalic, pupils were equal round reactive to light and recommendation, extraocular muscle movement were intact, sclera nonicteric, conjunctivae were pale, mucous membranes of the mouth are somewhat dry. Neck: Supple, no JVP, normal carotid upstroke bilaterally, no lymphadenopathy. Chest: Decreased breath sounds at the bases, few rhonchi, no expiratory wheezes, no chest wall tenderness, no intercostal retractions. Heart: First heart sound is normal, second heart sounds normal Abdomen: Soft, nontender, nondistended, positive bowel sounds. Extremities: There is increased edema to both lower extremity is with increased erythema and bruising from the leg all the way down to the feet dorsalis pedis +2 bilaterally, Neurologic examination: Patient is awake alert and oriented X3, cranial nerves II-12 appear grossly intact, muscle power were 5 out of 5 in upper extremities and 5 out of 5 in bilateral lower extremities, deep tendon reflexes normal bilaterally. ASSESSMENT AND PLAN: 1. bilateral lower extremity cellulitis. Start the patient on Ancef 1 g IV piggyback every 8 hours, keep the leg elevated, continue to monitor the patient very closely. 2. Erythema nodosum. Discontinue Solu-Medrol and start the patient on prednisone 40 mg once every day , keep leg elevated, apply mometasone cream 0.0% to be applied once every day. 3. Chronic kidney disease stage IIIa. Avoid nephrotoxins, monitor the patient CMP , continue sodium bicarbonate 650 mg orally twice every day. 4. History of a plastic anemia seems to be stable at this time patient has been getting iron infusions as an outpatient along with vitamin B12 supplement. 5. GERD.continue patient on Pepcid 20 mg orally twice every day. 6. 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 Continue loperamide 2 mg orally 3 times every day.continue with Zenpep twice every day. 7. 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 Continue gabapentin 300 mg orally 3 times every day, continue patient on Soma 350 mg orally twice every day,continue hydrocodone as needed. 8. Insomnia. Continue patient on Seroquel XR 150 mg orally once every day. 9. vitamin D deficiency. Continue vitamin D2 50,000 units twice a month. 10. Major depressive disorder. Continue patient on Cymbalta 90 mg orally once every day. 11. DVT prophylaxis. Heparin 5000 units subcutaneously every 8 hours. 12. GI prophylaxis. Continue Pepcid 20 mg orally twice every day. 13. Physical therapy evaluation . increase activity. Objective - Vital Signs Vital signs: Vital Signs Temp 98.1 F 02/10/21 13:58 Pulse 64 02/10/21 13:58 Resp 16 02/10/21 13:58 BP 125/66 02/10/21 13:58 Pulse Ox 97 02/10/21 13:58 Intake & Output 02/09/21 02/10/21 02/10/21 18:59 06:59 18:59 Intake Total 222 350 Balance 222 350 Intake: Oral 222 350 Other: Voiding Method Toilet Toilet Toilet Diaper Diaper Diaper # Voids 4 2 2 - Labs CBC & Chem 7: 02/10/21 06:19 02/10/21 06:19 Labs: Abnormal Lab Results - Last 24 Hours (Table) 02/10/21 02/10/21 Range/Units 06:19 06:19 WBC 11.25 H (4.50-10.00) X 10*3/uL RBC 2.48 L (4.10-5.20) X 10*6/uL Hgb 7.9 L (12.0-15.0) g/dL Hct 24.7 L (37.2-46.3) % MCV 99.6 H (80.0-97.0) fL Immature Gran # 0.12 H (0.00-0.04) X 10*3/uL Neutrophils # 10.23 H (1.80-7.70) X 10*3/uL Lymphocytes # 0.67 L (0.90-5.00) X 10*3/uL Eosinophils # 0 L (0.04-0.35) X 10*3/uL Est GFR (CKD-EPI)AfAm 54.2 L (60.0-200.0) Est GFR (CKD-EPI)NonAf 46.7 L (60.0-200.0) Glucose 124 H (70-110) mg/dL Calcium 7.8 L (8.7-10.3) mg/dL Total Bilirubin 0.1 L (0.2-1.2) mg/dL AST 12 L (13-35) U/L ALT <8 L (8-44) U/L Total Protein 5.3 L (6.2-8.2) g/dL Albumin 3.50 L (3.80-4.90) g/dL
[2021-02-10] MEDS: carisoprodoL 350 MG TAB PO SCH (21:46)
[2021-02-10] MEDS: QUEtiapine 50 MG TAB PO SCH (21:46)
[2021-02-11] MEDS: PROTEASE PO SCH ×3 (08:19→18:14)
[2021-02-11] MEDS: HEPARIN SODIUM,PORCINE/PF 5,000 UNIT/0.5 ML SYRINGE SQ SCH ×3 (08:19→22:16)
[2021-02-11] MEDS: LIPASE PO SCH ×3 (08:19→18:14)
[2021-02-11] MEDS: AMYLASE PO SCH ×3 (08:19→18:14)
[2021-02-11] MEDS: [UNRECOGNIZED DRUG - OTHER] PO SCH ×3 (08:19→18:14)
[2021-02-11] MEDS: FAMOTIDINE 20 MG TAB PO SCH (08:20)
[2021-02-11] MEDS: MAGNESIUM OXIDE 400 MG TAB PO SCH ×2 (08:20→22:13)
[2021-02-11] MEDS: FOLIC ACID 1 MG TAB PO SCH (08:20)
[2021-02-11] MEDS: predniSONE 20 MG TAB PO SCH (08:20)
[2021-02-11] MEDS: GABAPENTIN 300 MG CAP PO SCH ×3 (08:20→22:14)
[2021-02-11] MEDS: ALPRAZolam 0.5 MG TAB PO SCH ×2 (08:20→22:14)
[2021-02-11] MEDS: DICYCLOMINE 20 MG TAB PO SCH ×3 (08:21→22:14)
[2021-02-11] MEDS: DULoxetine HCL 30 MG CAPSULE.DR PO SCH (08:21)
[2021-02-11] MEDS: TRIAMCINOLONE 0.1% CREAM 80 GM TUBE TOPICAL SCH ×2 (08:25→22:16)
[2021-02-11] MEDS: SODIUM BICARBONATE TAB 650 MG TAB PO SCH ×3 (08:25→22:13)
[2021-02-11] MEDS: MORPHINE SULFATE 4 MG/ML SYRINGE IV PRN ×4 (08:42→22:14)
[2021-02-11 09:03] LABS: Basophils # (A) 0.02 X 10*3/uL (0.00-0.10); Basophils % (A) 0.2 %; Eosinophils # (A) 0 X 10*3/uL (0.04-0.35); Eosinophils % (A) 0 %; HCT 25.9 % (37.2-46.3); HGB 8.2 g/dL (12.0-15.0); Lymphocytes # (A) 1.24 X 10*3/uL (0.90-5.00); Lymphocytes % (A) 10.7 %; MCH 31.7 pg (27.0-32.0); MCHC 31.7 g/dL (32.0-37.0); Mean Platelet Volume 10.1 fL (9.5-12.2); Monocytes % (A) 6.9 %; Neutrophils # (A) 9.27 X 10*3/uL (1.80-7.70); Neutrophils % (A) 80.1 %; Platelet Count 243 X 10*3/uL (140-440); RBC 2.59 X 10*6/uL (4.10-5.20); RDW 13.7 % (11.5-14.5); WBC 11.57 X 10*3/uL (4.50-10.00)
[2021-02-11 09:10] LABS: ALT <8 U/L (8-44); AST 14 U/L (13-35); African American GFR (CKD) 60.2 (60.0-200.0); Alkaline Phosphatase 65 U/L (41-126); Calcium 8.3 mg/dL (8.7-10.3); Carbon Dioxide 19.6 mmol/L (21.6-31.8); Chloride 106 mmol/L (96-109); Globulin 1.8 g/dL (1.6-3.3); Glucose 104 mg/dL (70-110); Non-African American GFR(CKD) 51.9 (60.0-200.0); Potassium 3.6 mmol/L (3.5-5.5); Sodium 136 mmol/L (135-145); Total Bilirubin 0.1 mg/dL (0.3-1.2); Total Protein 5.4 g/dL (6.2-8.2)
--- NOTE | 2021-02-11 18:26 | P.PN ---
Subjective Progress Note Date: 02/11/21 Progress note: 02/09/2021 Chief Complaint: bilateral lower extremity cellulitis, erythema nodosum HISTORY OF PRESENT ILLNESS: this is a 65-year-old female one of my patient with abuse medical history significant for chronic pancreatitis, a plastic anemia, lupus anticoag ulant, history of chronic kidney disease stage III A, GERD, diverticulitis, recurrent bowel obstruction, major depressive disorder, spondylosis of the lumbar spine, patient was seen in my office on 02/03/2021 and she was complaining of increased pain in both lower extremity is with discolored feet s he did have a painful nodules on the lower extremities and she was diagnosed with erythema nodosum, she was prescribed Medrol Dosepak as well as mometasone furoate 0.1% cream to be applied once every day, keep the leg elevated and apply asked as needed, patient called the office today stated that she is a severe amount of pain in both lower extremity and she has been crying and with increased redness and swelling in both lower extremity is she was rectal to go to the ER for IV steroid as well as IV antibiotic and she was seen in the ER at [facility] her laboratory evaluation was not very impressive she has chronic anemia due to her plastic anemia, she was started on IV antibiotic in the form of Solar 1 g IV piggyback every 8 hours as well as Solu-Medrol 40 mg IV push every 8 hours and she was admitted to the hospital for failed outpatient treatment. 02/09: Patient is feeling about the same, she did not sleep very well last night because she did not receive her cervical, she denies any chest pain or shortness breath, she has no abdominal pain, no nausea vomiting or diarrhea her swelling of the lower extremity and erythematous a lot better, she continues to have something in both lower extremities for which is getting morphine, we'll try to wean her off the morphine and start the patient back on her [place] only. 02/10: Patient is laying down in bed in no apparent distress, we'll discontinue morphine sulfate at this time discontinue IV fluid, continue patient on [place] 1 0/325 mg orally twice every day, discontinue supplemental start the patient on prednisone 40 mg once every day continue IV antibiotic for another 24 hours likely patient will be discharged home the next 24 hours. 02/11: Patient is sitting up in bed is feeling a bit better today she denies any chest pain, shortness breath, she is not moving around as much, her pain in the right lower extremity of the left lower extremity is a lot better, erythematous a lot better, the swelling is down, she will be kept in the hospital for another 24 hours that she can be discharged home tomorrow morning on oral cephalexin 500 mg orally 3 times every day for 10 days REVIEW OF SYSTEMS: Constitutional: No documented fever, no chills, no night sweats. No weight change. No weakness, fatigue or lethargy. No daytime sleepiness. HEENT: No headache. No blurred vision or double vision, no loss of vision. No loss of Hearing, no ringing in the ears, no dizziness. No nasal drainage or congestion. No epistaxis. No sore throat. Lungs: No shortness of breath, occasional cough, no sputum production. No whe ezing. Reports dyspnea with activity. Cardiovascular: No chest pain, no lower extremity edema. No palpitations. No paroxysmal nocturnal dyspnea. No orthopnea. No lightheadedness or dizziness. No syncopal episodes. Abdominal: Reports abdominal pain. No nausea, vomiting. No diarrhea. No const ipation. No bloody or tarry stools reports loss of appetite. Genitourinary: No dysuria, increased frequency, urgency. No urinary retention. Musculoskeletal: No myalgias. positive for muscle weakness, no gait dysfunction, no frequent falls. positive fpr back pain. No neck pain. Integumentary: No wounds, positive for red rash to lower extremities and warmth to touch positive for bruising. No change in hair or nails. Neurologic: No aphasia. No facial droop. No change in mentation. No head injury. No headache. No paralysis. No paresthesia. Psychiatric: No depression. No anxiety. No mood swings. Endocrine: No abnormal blood sugars. No weight change. PHYSICAL EXAMINATION: General: 65-year-old female laying down in bed in minimal distress. HEENT: Head is atraumatic, normocephalic, pupils were equal round reactive to light and recommendation, extraocular muscle movement were intact, sclera nonicteric, conjunctivae were pale, mucous membranes of the mouth are somewhat dry. Neck: Supple, no JVP, normal carotid upstroke bilaterally, no lymphadenopathy. Chest: Decreased breath sounds at the bases, few rhonchi, no expiratory wheezes, no chest wall tenderness, no intercostal retractions. Heart: First heart sound is normal, second heart sounds normal Abdomen: Soft, nontender, nondistended, positive bowel sounds. Extremities: There is increased edema to both lower extremity is with increased erythema and bruising from the leg all the way down to the feet dorsalis pedis +2 bilaterally, Neurologic examination: Patient is awake alert and oriented X3, cranial nerves II-12 appear grossly intact, muscle power were 5 out of 5 in upper extremities and 5 out of 5 in bilateral lower extremities, deep tendon reflexes normal bilaterally. ASSESSMENT AND PLAN: 1. bilateral lower extremity cellulitis. Start the patient on Ancef 1 g IV piggyback every 8 hours, keep the leg elevated, we will switch to oral cephalexin 500 mg orally 2 times every day tomorrow morning prior to discharge 2 . Erythema nodosum. Discontinue Solu-Medrol and start the patient on predn isone 40 mg once every day , keep leg elevated, apply mometasone cream 0.0% to be applied once every day. 3. Chronic kidney disease stage IIIa. Avoid nephrotoxins, monitor the patient CMP , continue sodium bicarbonate 650 mg orally twice every day. 4. History of a plastic anemia seems to be stable at this time patient has been getting iron infusions as an outpatient along with vitamin B12 supplement. 5. GERD.continue patient on Pepcid 20 mg orally twice every day. 6. 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 Continue loperamide 2 mg orally 3 times every day.continue with Zenpep twice every day. 7. 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 Continue gabapentin 300 mg orally 3 times every day, continue patient on Soma 350 mg orally twice every day,continue hydrocodone as needed. 8. Insomnia. Continue patient on Seroquel XR 150 mg orally once every day. 9. vitamin D deficiency. Continue vitamin D2 50,000 units twice a month. 10. Major depressive disorder. Continue patient on Cymbalta 90 mg orally once every day. 11. DVT prophylaxis. Heparin 5000 units subcutaneously every 8 hours. 12. GI prophylaxis. Continue Pepcid 20 mg orally twice every day. 13. Physical therapy evaluation . increase activity. 14. Home tomorrow morning. Objective - Vital Signs Vital signs: Vital Signs Temp 98.2 F 02/11/21 07:00 Pulse 65 02/11/21 08:00 Resp 17 02/11/21 08:00 BP 177/84 02/11/21 07:00 Pulse Ox 97 02/11/21 07:00 Intake & Output 02/10/21 02/11/21 02/11/21 18:59 06:59 18:59 Intake Total 237 Balance 237 Intake: Oral 237 Other: Voiding Method Toilet Toilet Toilet Diaper # Voids 2 1 - Labs CBC & Chem 7: 02/11/21 06:10 02/11/21 06:10 Labs: Abnormal Lab Results - Last 24 Hours (Table) 02/11/21 02/11/21 Range/Units 06:10 06:10 WBC 11.57 H (4.50-10.00) X 10*3/uL RBC 2.59 L (4.10-5.20) X 10*6/uL Hgb 8.2 L (12.0-15.0) g/dL Hct 25.9 L (37.2-46.3) % MCV 100.0 H (80.0-97.0) fL MCHC 31.7 L (32.0-37.0) g/dL Immature Gran # 0.24 H (0.00-0.04) X 10*3/uL Neutrophils # 9.27 H (1.80-7.70) X 10*3/uL Eosinophils # 0 L (0.04-0.35) X 10*3/uL Carbon Dioxide 19.6 L (21.6-31.8) mmol/L Est GFR (CKD-EPI)NonAf 51.9 L (60.0-200.0) Calcium 8.3 L (8.7-10.3) mg/dL Total Bilirubin 0.1 L (0.3-1.2) mg/dL ALT <8 L (8-44) U/L Total Protein 5.4 L (6.2-8.2) g/dL Albumin 3.60 L (3.80-4.90) g/dL
[2021-02-11] MEDS: QUEtiapine 50 MG TAB PO SCH (22:13)
[2021-02-11] MEDS: carisoprodoL 350 MG TAB PO SCH (22:13)
[2021-02-12] MEDS: MORPHINE SULFATE 4 MG/ML SYRINGE IV PRN (05:42)
[2021-02-12 08:18] VITALS: BP 157/72; PULSE 59; RESP 16; TEMP 98.4
--- NOTE | 2021-02-12 08:35 | P.DS ---
Providers Date of admission: 02/09/21 14:08 Expected date of discharge: 02/12/21 Attending physician: Meseret Haq Primary care physician: Meseret Haq Hospital Course: HISTORY OF PRESENT ILLNESS: this is a 65-year-old female one of my patient with abuse medical history significant for chronic pancreatitis, a plastic anemia, lupus anticoagulant, history of chronic kidney disease stage III A, GERD, diverticulitis, recurrent bowel obstruction, major depressive disorder, spondylosis of the lumbar spine, patient was seen in my office on 02/03/2021 and she was complaining of increased pain in both lower extremity is with discolored feet she did have a painful nodules on the lower extremities and she was diagnosed with erythema nodosum, she was prescribed Medrol Dosepak as well as mometasone furoate 0.1% cream to be applied once every day, keep the leg elevated and apply asked as needed, patient called the office today stated that she is a severe amount of pain in both lower extremity and she has been crying and with increased redness and swelling in both lower extremity is she was rectal to go to the ER for IV steroid as well as IV antibiotic and she was seen in the ER at [facility] her laboratory evaluation was not very impressive she has chronic anemia due to her plastic anemia, she was started on IV antibiotic in the form of Solar 1 g IV piggyback every 8 hours as well as Solu-Medrol 40 mg IV push every 8 hours and she was admitted to the hospital for failed outpatient treatment. 02/09: Patient is feeling about the same, she did not sleep very well last night because she did not receive her cervical, she denies any chest pain or shortness breath, she has no abdominal pain, no nausea vomiting or diarrhea her swelling of the lower extremity and erythematous a lot better, she continues to have amee ething in both lower extremities for which is getting morphine, we'll try to wean her off the morphine and start the patient back on her [place] only. 02/10: Patient is laying down in bed in no apparent distress, we'll discontinue morphine sulfate at this time discontinue IV fluid, continue patient on [place] 10/325 mg orally twice every day, discontinue supplemental start the patient on prednisone 40 mg once every day continue IV antibiotic for another 24 hours likely patient will be discharged home the next 24 hours. 02/11: Patient is sitting up in bed is feeling a bit better today she denies any chest pain, shortness breath, she is not moving around as much, her pain in the right lower extremity of the left lower extremity is a lot better, erythematous a lot better, the swelling is down, she will be kept in the hospital for another 24 hours that she can be discharged home tomorrow morning on oral cephalexin 500 mg orally 3 times every day for 10 days Discharge Diagnoses: 1. bilateral lower extremity cellulitis. 2 . Erythema nodosum. 3. Chronic kidney disease stage IIIa. 4. History of a plastic anemia seems to be stable at this time 5. GERD. 6. 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 7. 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 8. Insomnia. 9. vitamin D deficiency. 10. Major depressive disorder. 11. Chronic pain syndrome. Patient Condition at Discharge: Good Plan - Discharge Summary Discharge Rx Participant: Yes New Discharge Prescriptions: No Action Magnesium Oxide [Mag-Ox] 400 mg PO BID Folic Acid 1 mg PO DAILY DULoxetine HCL [Cymbalta] 60 mg PO DAILY traZODone HCL 150 mg PO HS Dicyclomine [Bentyl] 20 mg PO TID Sodium Bicarbonate Tab 650 mg PO BID Albuterol Sulfate [Proair Hfa] 1 puff INHALATION RT-Q4H PRN PRN Reason: Shortness Of Breath Lipase/Protease/Amylase [Zenpep Dr 40,000 Unit Capsule] 80,000 units PO TID- W/MEALS Famotidine [Pepcid] 20 mg PO BID Loperamide HCl [Imodium A-D] 2 mg PO TID PRN PRN Reason: Diarrhea Gabapentin [Neurontin] 300 mg PO TID #9 cap ALPRAZolam [Xanax] 0.5 mg PO BID #6 tab HYDROcodone/APAP 5-325MG [[place] 5-325] 1 tab PO BID PRN PRN Reason: Pain QUEtiapine [SEROquel] 50 mg PO HS Ergocalciferol (Vitamin D2) [Drisdol (50,000 Iu)] 1,250 mcg PO Q14D carisoprodoL [Soma] 350 mg PO HS Discharge Medication List DULoxetine HCL [Cymbalta] 60 mg PO DAILY 05/24/17 [History] Folic Acid 1 mg PO DAILY 05/24/17 [History] Magnesium Oxide [Mag-Ox] 400 mg PO BID 05/24/17 [History] traZODone HCL 150 mg PO HS 02/27/18 [History] Dicyclomine [Bentyl] 20 mg PO TID 07/10/18 [History] Albuterol Sulfate [Proair Hfa] 1 puff INHALATION RT-Q4H PRN 10/20/19 [History] Sodium Bicarbonate Tab 650 mg PO BID 10/20/19 [History] Famotidine [Pepcid] 20 mg PO BID 11/06/19 [History] Lipase/Protease/Amylase [Zenpep Dr 40,000 Unit Capsule] 80,000 units PO TID- W/MEALS 11/06/19 [History] Loperamide HCl [Imodium A-D] 2 mg PO TID PRN 11/06/19 [History] ALPRAZolam [Xanax] 0.5 mg PO BID #6 tab 11/11/19 [Rx] Gabapentin [Neurontin] 300 mg PO TID #9 cap 11/11/19 [Rx] HYDROcodone/APAP 5-325MG [[place] 5-325] 1 tab PO BID PRN 06/22/20 [History] QUEtiapine [SEROquel] 50 mg PO HS 06/22/20 [History] Ergocalciferol (Vitamin D2) [Drisdol (50,000 Iu)] 1,250 mcg PO Q14D 01/31/21 [History] carisoprodoL [Soma] 350 mg PO HS 01/31/21 [History] Follow up Appointment(s)/Referral(s): Meseret Haq MD [Primary Care Provider] - 1-2 days
[2021-02-12] MEDS: GABAPENTIN 300 MG CAP PO SCH (08:59)
[2021-02-12] MEDS: FOLIC ACID 1 MG TAB PO SCH (09:00)
[2021-02-12] MEDS: predniSONE 20 MG TAB PO SCH (09:00)
[2021-02-12] MEDS: MAGNESIUM OXIDE 400 MG TAB PO SCH (09:00)
[2021-02-12] MEDS: ALPRAZolam 0.5 MG TAB PO SCH (09:00)
[2021-02-12] MEDS: FAMOTIDINE 20 MG TAB PO SCH (09:00)
[2021-02-12] MEDS ORDERED: CEPHALEXIN 500 MG CAP PO SCH (09:00)
[2021-02-12] MEDS: AMYLASE PO SCH (09:00)
[2021-02-12] MEDS: [UNRECOGNIZED DRUG - OTHER] PO SCH (09:00)
[2021-02-12] MEDS: LIPASE PO SCH (09:00)
[2021-02-12] MEDS: HEPARIN SODIUM,PORCINE/PF 5,000 UNIT/0.5 ML SYRINGE SQ SCH (09:00)
[2021-02-12] MEDS: PROTEASE PO SCH (09:00)
[2021-02-12] MEDS: DICYCLOMINE 20 MG TAB PO SCH (09:01)
[2021-02-12] MEDS: DULoxetine HCL 30 MG CAPSULE.DR PO SCH (09:02)
[2021-02-12] MEDS: SODIUM BICARBONATE TAB 650 MG TAB PO SCH (09:05)
[2021-02-12] MEDS: TRIAMCINOLONE 0.1% CREAM 80 GM TUBE TOPICAL SCH (09:05)
[2021-02-24] MEDS ORDERED: ERGOCALCIFEROL 1,250 MCG (50,000 IU) CAPSULE PO SCH (09:00)
== END 2021-02-12 10:58 | disposition home or self-care (01) | DRG 596 ==
LOC: EC 13:20 → 6NMEDSUR 16:37 → OBSVTOIN 02-09 14:08
PROVIDERS: ADMIT Internal Medicine; ATTEND Internal Medicine
DX: L52 Erythema nodosum (principal); D68.62 Lupus anticoagulant syndrome; K86.1 Other chronic pancreatitis; K91.2 Postsurgical malabsorption, not elsewhere classified; L03.115 Cellulitis of right lower limb; L03.116 Cellulitis of left lower limb; D61.9 Aplastic anemia, unspecified; E55.9 Vitamin D deficiency, unspecified; I12.9 Hypertensive chronic kidney disease with stage 1 through stage 4 chronic kidney disease, or unspecified chronic kidney disease; F17.210 Nicotine dependence, cigarettes, uncomplicated; F31.9 Bipolar disorder, unspecified; F43.10 Post-traumatic stress disorder, unspecified; G35 Multiple sclerosis; M81.0 Age-related osteoporosis without current pathological fracture; G47.00 Insomnia, unspecified; G62.9 Polyneuropathy, unspecified; N18.31 Chronic kidney disease, stage 3a; K21.9 Gastro-esophageal reflux disease without esophagitis; G89.4 Chronic pain syndrome; J44.9 Chronic obstructive pulmonary disease, unspecified; K52.9 Noninfective gastroenteritis and colitis, unspecified; M47.816 Spondylosis without myelopathy or radiculopathy, lumbar region; M79.7 Fibromyalgia; Z79.899 Other long term (current) drug therapy; Z85.028 Personal history of other malignant neoplasm of stomach; Z86.73 Personal history of transient ischemic attack (TIA), and cerebral infarction without residual deficits; Z88.1 Allergy status to other antibiotic agents; Z88.8 Allergy status to other drugs, medicaments and biological substances; Z88.0 Allergy status to penicillin; Z91.02 Food additives allergy status; Z88.5 Allergy status to narcotic agent; Z88.6 Allergy status to analgesic agent; Z88.2 Allergy status to sulfonamides; Z87.820 Personal history of traumatic brain injury; Z85.038 Personal history of other malignant neoplasm of large intestine; Z87.19 Personal history of other diseases of the digestive system; Z79.891 Long term (current) use of opiate analgesic; Z91.018 Allergy to other foods; Z91.013 Allergy to seafood; Z90.49 Acquired absence of other specified parts of digestive tract
CPT/HCPCS: 36415; 80053; 81001; 85025; 96361; 96365; 96374; 96375; 99284

== ENCOUNTER 2021-02-28 13:57 | Inpatient (IN) | payer MEDICARE, OTHER ==
[2021-02-28 14:16] LABS: Glucose,Whole Blood 113 mg/dL (75-99)
[2021-02-28] MEDS ORDERED: NALOXONE 0.4 MG/ML 1 ML VIAL IM STA (14:20)
[2021-02-28] MEDS ORDERED: NALOXONE 0.4 MG/ML 1 ML VIAL IVP STA (14:21)
[2021-02-28] MEDS ORDERED: SODIUM CHLORIDE 0.9% 1,000 ML IV ONE (14:21)
[2021-02-28 14:39] LABS: Appearance,Urine Clear (Clear); Bilirubin,Urine Negative (Negative); Blood,Urine Small (Negative); Color,Urine Light Yellow; Glucose,Urine (UA) Negative (Negative); Ketones,Urine Negative (Negative); Leukocyte Esterase,Urine Negative (Negative); Nitrite,Urine Negative (Negative); Protein,Urine Trace (Negative); RBC,Urine 16 /hpf (0-5); Specific Gravity,Urine 1.017 (1.001-1.035); Squamous Epithelial Cell,Urine 1 /hpf (0-4); Urobilinogen,Urine <2.0 mg/dL (<2.0); WBC,Urine <1 /hpf (0-5)
--- NOTE | 2021-02-28 14:46 | ED ---
General Adult HPI - General Chief complaint: Altered Mental Status Stated complaint: leg pain Time Seen by Provider: 02/28/21 14:20 Source: patient, RN notes reviewed, old records reviewed Mode of arrival: wheelchair Limitations: altered mental status - History of Present Illness Initial comments: 65-year-old female presenting with altered mental status. Unknown the exact onset of this change. She had taken a cab to the emergency department. She was brought in through triage with a chief complaint of leg pain. Uncertain which leg. She was lethargic and does admit to taking pain medication but this history is not known in detail. - Related Data Home Medications Medication Instructions Recorded Confirmed DULoxetine HCL [Cymbalta] 60 mg PO DAILY 05/24/17 02/28/21 Folic Acid 1 mg PO DAILY 05/24/17 02/28/21 Magnesium Oxide [Mag-Ox] 400 mg PO BID 05/24/17 02/28/21 traZODone HCL 150 mg PO HS 02/27/18 02/28/21 Dicyclomine [Bentyl] 20 mg PO TID 07/10/18 02/28/21 Albuterol Sulfate [Proair Hfa] 1 puff INHALATION RT-Q4H PRN 10/20/19 02/28/21 Sodium Bicarbonate Tab 650 mg PO BID 10/20/19 02/28/21 Famotidine [Pepcid] 20 mg PO BID 11/06/19 02/28/21 Lipase/Protease/Amylase [Zenpep Dr 80,000 units PO TID-W/MEALS 11/06/19 02/28/21 40,000 Unit Capsule] Loperamide HCl [Imodium A-D] 2 mg PO TID PRN 11/06/19 02/28/21 HYDROcodone/APAP 5-325MG [[place] 1 tab PO BID PRN 06/22/20 02/28/21 5-325] QUEtiapine [SEROquel] 50 mg PO HS 06/22/20 02/28/21 Ergocalciferol (Vitamin D2) 1,250 mcg PO Q14D 01/31/21 02/28/21 [Drisdol (50,000 Iu)] carisoprodoL [Soma] 350 mg PO HS 01/31/21 02/28/21 Previous Rx's Medication Instructions Recorded ALPRAZolam [Xanax] 0.5 mg PO BID #6 tab 11/11/19 Gabapentin [Neurontin] 300 mg PO TID #9 cap 11/11/19 Triamcinolone 0.1% Cream [Kenalog 1 applic TOPICAL BID #30 gram 02/12/21 0.1% Cream] Allergies Allergy/AdvReac Type Severity Reaction Status Date / Time alcohol Allergy Vomiting Verified 02/08/21 17:20 aspirin Allergy Unknown Verified 02/08/21 17:20 divalproex sodium Allergy Unknown Verified 02/08/21 17:20 [From Depakote] erythromycin base Allergy Unknown Verified 02/08/21 17:20 ketorolac [From Toradol] Allergy Unknown Verified 02/08/21 17:20 Penicillins Allergy Unknown Verified 02/08/21 17:20 shellfish derived [Shellfish] Allergy Unknown Verified 02/08/21 17:20 strawberry Allergy Unknown Verified 02/08/21 17:20 Sulfa (Sulfonamide Allergy Unknown Verified 02/08/21 17:20 Antibiotics) Review of Systems ROS Statement: Those systems with pertinent positive or pertinent negative responses have been documented in the HPI. ROS Other: All systems not noted in ROS Statement are negative. Past Medical History Past Medical History: Cancer, COPD, CVA/TIA, Fibromyalgia, Hypertension Additional Past Medical History / Comment(s): Lupus, TIA, right hand tendons severed, closed head injury, multiple sclerosis, short bowel syndrome, pancreatic insufficiency, bowel cancer History of Any Multi-Drug Resistant Organisms: C-DIFF Date of last positivie culture/infection: 2014 MDRO Source:: patient Past Surgical History: Appendectomy, Back Surgery, Section, Orthopedic Surgery Additional Past Surgical History / Comment(s): stomach cancer, right hemicolectomy and small bowel resection Past Anesthesia/Blood Transfusion Reactions: No Reported Reaction Past Psychological History: Anxiety, Bipolar, Depression, PTSD Smoking Status: Current every day smoker Past Alcohol Use History: None Reported Past Drug Use History: None Reported - Past Family History Father Additional Family Medical History / Comment(s): Father has history of diabetes and stomach problems. Mother Additional Family Medical History / Comment(s): Mother has history of diabetes, coronary artery disease and COPD. Sister(s) Additional Family Medical History / Comment(s): Patient has sisters all have female problems. She does state there is breast cancer history in her aunt. Son(s) Family Medical History: No Reported History Additional Family Medical History / Comment(s): Patient has one son with no major medical problems. General Exam Limitations: altered mental status General appearance: in no apparent distress, lethargic Head exam: Present: atraumatic, normocephalic Eye exam: Present: normal appearance, PERRL ENT exam: Present: mucous membranes dry Neck exam: Present: normal inspection. Absent: tenderness, meningismus Respiratory exam: Present: normal lung sounds bilaterally. Absent: respiratory distress, wheezes, rales Cardiovascular Exam: Present: regular rate, normal rhythm GI/Abdominal exam: Present: soft. Absent: distended, tenderness, guarding, rebound Extremities exam: Present: pedal edema (Edema and erythema right lower extremity) Neurological exam: Present: alert, motor sensory deficit (Patient very slow to respond, she is protecting her airway. She is moving all extremities symmetrically. She will follow simple commands.). Absent: oriented X3 Skin exam: Present: warm, dry, intact. Absent: cyanosis, diaphoretic Course Vital Signs 02/28/21 02/28/21 02/28/21 14:14 14:20 14:23 Temperature 98.1 F Pulse Rate 75 Respiratory 16 14 121 H Rate Blood Pressure 132/68 O2 Sat by Pulse 99 Oximetry 02/28/21 02/28/21 02/28/21 14:40 14:42 15:00 Temperature Pulse Rate 73 72 59 L Respiratory 18 17 15 Rate Blood Pressure 139/74 139/74 137/67 O2 Sat by Pulse 98 99 99 Oximetry 02/28/21 02/28/21 15:30 16:00 Temperature Pulse Rate 59 L 57 L Respiratory 18 12 Rate Blood Pressure 117/69 129/69 O2 Sat by Pulse 99 100 Oximetry EKG Findings - EKG Comments: EKG Findings:: Sinus rhythm with artifact, rate of 71, RI interval 158, QRS duration 88, QTC 456, no ST segment elevation. Medical Decision Making - Medical Decision Making 65 yo female had presented altered to the emergency department. There was no history available from the patient and no family available at the time my evaluation. Patient was lethargic but protecting her airway. She has stable vitals, normal oxygenation, normal blood sugar. She had seemingly nonfocal neurologic exam. She was given Narcan initially with some improvement in mentation. She received workup including CT brain which is negative for intracranial hemorrhage or mass effect, chest x-ray negative for focal pneumonia. She had an ultrasound performed of the right leg as this leg was somewhat more swollen than the left this was negative for DVT. She had a leukopenia and anemia which will be monitored. She has creatinine 1.23, urinalysis showing some red cells but no signs of significant infection. Urine drug screen positive for opiates, benzodiazepines, TCA. She remains lethargic and will be admitted with altered mental status, I suspect polysubstance including benzodiazepine, and opiates. She did at one point told nursing staff that she had taken her pain medication prior to arrival. - Lab Data Result diagrams: 02/28/21 14:26 02/28/21 14:26 Lab Results 02/28/21 02/28/21 02/28/21 Range/Units 14:14 14:26 14:26 WBC 3.5 L (3.8-10.6) k/uL RBC 2.22 L (3.80-5.40) m/uL Hgb 7.3 L D (11.4-16.0) gm/dL Hct 21.8 L (34.0-46.0) % MCV 98.1 (80.0-100.0) fL MCH 32.8 (25.0-35.0) pg MCHC 33.4 (31.0-37.0) g/dL RDW 14.2 (11.5-15.5) % Plt Count 272 (150-450) k/uL MPV 7.2 Neutrophils % 62 % Lymphocytes % 27 % Monocytes % 6 % Eosinophils % 1 % Basophils % 0 % Neutrophils # 2.2 (1.3-7.7) k/uL Lymphocytes # 1.0 (1.0-4.8) k/uL Monocytes # 0.2 (0-1.0) k/uL Eosinophils # 0.0 (0-0.7) k/uL Basophils # 0.0 (0-0.2) k/uL PT 9.9 (9.0-12.0) sec INR 0.9 (<1.2) APTT 25.7 (22.0-30.0) sec Sodium (137-145) mmol/L Potassium (3.5-5.1) mmol/L Chloride (98-107) mmol/L Carbon Dioxide (22-30) mmol/L Anion Gap mmol/L BUN (7-17) mg/dL Creatinine (0.52-1.04) mg/dL Est GFR (CKD-EPI)AfAm (>60 ml/min/1.73 sqM) Est GFR (CKD-EPI)NonAf (>60 ml/min/1.73 sqM) Glucose (74-99) mg/dL POC Glucose (mg/dL) 113 H (75-99) mg/dL POC Glu [employer] ID Vangie Martinez Calcium (8.4-10.2) mg/dL Total Bilirubin (0.2-1.3) mg/dL AST (14-36) U/L ALT (4-34) U/L Alkaline Phosphatase (38-126) U/L Ammonia (<30) umol/L Troponin I (0.000-0.034) ng/mL Total Protein (6.3-8.2) g/dL Albumin (3.5-5.0) g/dL Urine Color Urine Appearance (Clear) Urine pH (5.0-8.0) Ur Specific Anthony (1.001-1.035) Urine Protein (Negative) Urine Glucose (UA) (Negative) Urine Ketones (Negative) Urine Blood (Negative) Urine Nitrite (Negative) Urine Bilirubin (Negative) Urine Urobilinogen (<2.0) mg/dL Ur Leukocyte Esterase (Negative) Urine RBC (0-5) /hpf Urine WBC (0-5) /hpf Ur Squamous Epith Cells (0-4) /hpf Salicylates mg/dL Urine Opiates Screen (NotDetected) Ur Oxycodone Screen (NotDetected) Urine Methadone Screen (NotDetected) Ur Propoxyphene Screen (NotDetected) Acetaminophen ug/mL Ur Barbiturates Screen (NotDetected) U Tricyclic Antidepress (NotDetected) Ur Phencyclidine Scrn (NotDetected) Ur Amphetamines Screen (NotDetected) U Methamphetamines Scrn (NotDetected) U Benzodiazepines Scrn (NotDetected) Urine Cocaine Screen (NotDetected) U Marijuana (THC) Screen (NotDetected) Serum Alcohol mg/dL 09/05/21 09/05/21 09/05/21 Range/Units 14:26 14:26 14:26 WBC (3.8-10.6) k/uL RBC (3.80-5.40) m/uL Hgb (11.4-16.0) gm/dL Hct (34.0-46.0) % MCV (80.0-100.0) fL MCH (25.0-35.0) pg MCHC (31.0-37.0) g/dL RDW (11.5-15.5) % Plt Count (150-450) k/uL MPV Neutrophils % % Lymphocytes % % Monocytes % % Eosinophils % % Basophils % % Neutrophils # (1.3-7.7) k/uL Lymphocytes # (1.0-4.8) k/uL Monocytes # (0-1.0) k/uL Eosinophils # (0-0.7) k/uL Basophils # (0-0.2) k/uL PT (9.0-12.0) sec INR (<1.2) APTT (22.0-30.0) sec Sodium 135 L (137-145) mmol/L Potassium 3.8 (3.5-5.1) mmol/L Chloride 109 H (98-107) mmol/L Carbon Dioxide 17 L (22-30) mmol/L Anion Gap 9 mmol/L BUN 24 H (7-17) mg/dL Creatinine 1.23 H (0.52-1.04) mg/dL Est GFR (CKD-EPI)AfAm 53 (>60 ml/min/1.73 sqM) Est GFR (CKD-EPI)NonAf 46 (>60 ml/min/1.73 sqM) Glucose 96 (74-99) mg/dL POC Glucose (mg/dL) (75-99) mg/dL POC Glu Liv[employer] ID Calcium 8.5 (8.4-10.2) mg/dL Total Bilirubin <0.1 L (0.2-1.3) mg/dL AST 13 L (14-36) U/L ALT 6 (4-34) U/L Alkaline Phosphatase 93 (38-126) U/L Ammonia 35 H (<30) umol/L Troponin I (0.000-0.034) ng/mL Total Protein 5.4 L (6.3-8.2) g/dL Albumin 3.0 L (3.5-5.0) g/dL Urine Color Light Yellow Urine Appearance Clear (Clear) Urine pH 6.0 (5.0-8.0) Ur Specific [place] 1.017 (1.001-1.035) Urine Protein Trace H (Negative) Urine Glucose (UA) Negative (Negative) Urine Ketones Negative (Negative) Urine Blood Small H (Negative) Urine Nitrite Negative (Negative) Urine Bilirubin Negative (Negative) Urine Urobilinogen <2.0 (<2.0) mg/dL Ur Leukocyte Esterase Negative (Negative) Urine RBC 16 H (0-5) /hpf Urine WBC <1 (0-5) /hpf Ur Squamous Epith Cells 1 (0-4) /hpf Salicylates <1.0 mg/dL Urine Opiates Screen Detected H (NotDetected) Ur Oxycodone Screen Not Detected (NotDetected) Urine Methadone Screen Not Detected (NotDetected) Ur Propoxyphene Screen Not Detected (NotDetected) Acetaminophen 15.4 ug/mL Ur Barbiturates Screen Not Detected (NotDetected) U Tricyclic Antidepress Detected H (NotDetected) Ur Phencyclidine Scrn Not Detected (NotDetected) Ur Amphetamines Screen Not Detected (NotDetected) U Methamphetamines Scrn Not Detected (NotDetected) U Benzodiazepines Scrn Detected H (NotDetected) Urine Cocaine Screen Not Detected (NotDetected) U Marijuana (THC) Screen Not Detected (NotDetected) Serum Alcohol <10 mg/dL 02/28/21 Range/Units 14:26 WBC (3.8-10.6) k/uL RBC (3.80-5.40) m/uL Hgb (11.4-16.0) gm/dL Hct (34.0-46.0) % MCV (80.0-100.0) fL MCH (25.0-35.0) pg MCHC (31.0-37.0) g/dL RDW (11.5-15.5) % Plt Count (150-450) k/uL MPV Neutrophils % % Lymphocytes % % Monocytes % % Eosinophils % % Basophils % % Neutrophils # (1.3-7.7) k/uL Lymphocytes # (1.0-4.8) k/uL Monocytes # (0-1.0) k/uL Eosinophils # (0-0.7) k/uL Basophils # (0-0.2) k/uL PT (9.0-12.0) sec INR (<1.2) APTT (22.0-30.0) sec Sodium (137-145) mmol/L Potassium (3.5-5.1) mmol/L Chloride (98-107) mmol/L Carbon Dioxide (22-30) mmol/L Anion Gap mmol/L BUN (7-17) mg/dL Creatinine (0.52-1.04) mg/dL Est GFR (CKD-EPI)AfAm (>60 ml/min/1.73 sqM) Est GFR (CKD-EPI)NonAf (>60 ml/min/1.73 sqM) Glucose (74-99) mg/dL POC Glucose (mg/dL) (75-99) mg/dL POC Glu Livestock Laborer ID Calcium (8.4-10.2) mg/dL Total Bilirubin (0.2-1.3) mg/dL AST (14-36) U/L ALT (4-34) U/L Alkaline Phosphatase (38-126) U/L Ammonia (<30) umol/L Troponin I <0.012 (0.000-0.034) ng/mL Total Protein (6.3-8.2) g/dL Albumin (3.5-5.0) g/dL Urine Color Urine Appearance (Clear) Urine pH (5.0-8.0) Ur Specific Anthony (1.001-1.035) Urine Protein (Negative) Urine Glucose (UA) (Negative) Urine Ketones (Negative) Urine Blood (Negative) Urine Nitrite (Negative) Urine Bilirubin (Negative) Urine Urobilinogen (<2.0) mg/dL Ur Leukocyte Esterase (Negative) Urine RBC (0-5) /hpf Urine WBC (0-5) /hpf Ur Squamous Epith Cells (0-4) /hpf Salicylates mg/dL Urine Opiates Screen (NotDetected) Ur Oxycodone Screen (NotDetected) Urine Methadone Screen (NotDetected) Ur Propoxyphene Screen (NotDetected) Acetaminophen ug/mL Ur Barbiturates Screen (NotDetected) U Tricyclic Antidepress (NotDetected) Ur Phencyclidine Scrn (NotDetected) Ur Amphetamines Screen (NotDetected) U Methamphetamines Scrn (NotDetected) U Benzodiazepines Scrn (NotDetected) Urine Cocaine Screen (NotDetected) U Marijuana (THC) Screen (NotDetected) Serum Alcohol mg/dL Disposition Clinical Impression: Altered mental status, Polysubstance (excluding opioids) dependence Disposition: ADMITTED IP TO THIS [facility] Condition: Stable Is patient prescribed a controlled substance at d/c from ED?: No Referrals: Meseret Haq MD [Primary Care Provider] - 1-2 days Decision to Admit Reason: Admit from EC Decision Date: 02/28/21 Decision Time: 16:29
[2021-02-28 14:52] LABS: Amphetamine Screen,Urine Not Detected (NotDetected); Barbiturate Screen,Urine Not Detected (NotDetected); Benzodiazepines Screen,Urine Detected (NotDetected); Cocaine Screen,Urine Not Detected (NotDetected); Methadone Screen, Urine Not Detected (NotDetected); Opiate Screen,Urine Detected (NotDetected); Oxycodone Screen, Urine Not Detected (NotDetected); Phencyclidine Screen,Urine Not Detected (NotDetected); Tricyclic Antidepressant,Urine Detected (NotDetected); Urn Cannabinoid Scrn Not Detected (NotDetected)
[2021-02-28 14:55] LABS: Basophils % (A) 0 %; Eosinophils % (A) 1 %; HCT 21.8 % (34.0-46.0); Lymphocytes % (A) 27 %; MCH 32.8 pg (25.0-35.0); MCHC 33.4 g/dL (31.0-37.0); MCV 98.1 fL (80.0-100.0); Mean Platelet Volume 7.2; Monocytes # (A) 0.2 k/uL (0-1.0); Monocytes % (A) 6 %; Neutrophils # (A) 2.2 k/uL (1.3-7.7); Neutrophils % (A) 62 %; Platelet Count 272 k/uL (150-450); RBC 2.22 m/uL (3.80-5.40); RDW 14.2 % (11.5-15.5); WBC 3.5 k/uL (3.8-10.6)
[2021-02-28 14:56] LABS: HGB 7.3 gm/dL (11.4-16.0); INR 0.9 (<1.2); Partial Thromboplastin Time 25.7 sec (22.0-30.0); Prothrombin Time 9.9 sec (9.0-12.0)
--- NOTE | 2021-02-28 15:06 | CT ---
EXAMINATION TYPE: CT brain wo con DATE OF EXAM: 02/28/2021 COMPARISON: 12/22/2020 HISTORY: AMS CT DLP: 1043.4 mGycm Automated exposure control for dose reduction was used. There is cerebral cortical atrophy. There is no mass effect nor midline shift. There is no sign of in tracranial hemorrhage. Calvarium is intact. There is some patchy areas of hypodensity in the white ma tter bilaterally. Skull base is intact. IMPRESSION: Cerebral atrophy and chronic small vessel ischemia. No acute intracranial abnormality. No change.
[2021-02-28 15:07] LABS: ALT 6 U/L (4-34); AST 13 U/L (14-36); African American GFR (CKD) 53 (>60 ml/min/1.73 sqM); Alcohol <10 mg/dL; Alkaline Phosphatase 93 U/L (38-126); Anion Gap 9 mmol/L; Blood Urea Nitrogen 24 mg/dL (7-17); Calcium 8.5 mg/dL (8.4-10.2); Carbon Dioxide 17 mmol/L (22-30); Chloride 109 mmol/L (98-107); Glucose 96 mg/dL (74-99); Non-African American GFR(CKD) 46 (>60 ml/min/1.73 sqM); Potassium 3.8 mmol/L (3.5-5.1); Sodium 135 mmol/L (137-145); Total Bilirubin <0.1 mg/dL (0.2-1.3); Total Protein 5.4 g/dL (6.3-8.2)
--- NOTE | 2021-02-28 15:31 | XR ---
EXAMINATION TYPE: XR chest 1V portable DATE OF EXAM: 02/28/2021 COMPARISON: 09/09/2020 HISTORY: Altered mental status TECHNIQUE: Single view FINDINGS: There is no heart failure nor confluent pneumonic infiltrate. Costophrenic angles are clear . There are chest leads. IMPRESSION: No active cardiopulmonary disease. No adverse change.
[2021-02-28 15:33] LABS: Acetaminophen 15.4 ug/mL; Salicylate <1.0 mg/dL
--- NOTE | 2021-02-28 15:49 | US ---
EXAMINATION TYPE: US venous doppler duplex LE RT DATE OF EXAM: 02/28/2021 3:34 PM COMPARISON: US CLINICAL HISTORY: swelling. Swelling. Patient poor historian. SIDE PERFORMED: Right TECHNIQUE: The lower extremity deep venous system is examined utilizing real time linear array sonog roxana with graded compression, doppler sonography and color-flow sonography. VESSELS IMAGED: Common Femoral Vein Deep Femoral Vein Greater Saphenous Vein * Femoral Vein Popliteal Vein Small Saphenous Vein * Proximal Calf Veins (* superficial vessels) Right Leg: Limited due to patient positioning. No evidence of DVT in veins imaged at this time. IMPRESSION: No evidence of deep vein thrombosis in the right leg.
[2021-02-28] MEDS ORDERED: NALOXONE 0.4 MG/ML 1 ML VIAL IV PRN (16:25)
[2021-02-28] MEDS: SODIUM CHLORIDE 0.9% 1,000 ML IV SCH (17:29)
[2021-02-28] MEDS ORDERED: LOPERAMIDE 2 MG CAP PO PRN (18:56)
[2021-02-28] MEDS ORDERED: ALBUTEROL NEBULIZED 2.5 MG/3 ML INHALATION PRN (18:56)
[2021-02-28] MEDS ORDERED: HYDROcodone/APAP 5-325MG 1 EACH TAB PO PRN (18:56)
[2021-02-28] MEDS: MAGNESIUM OXIDE 400 MG TAB PO SCH (20:46)
[2021-02-28] MEDS: ALPRAZolam 0.5 MG TAB PO SCH (20:47)
[2021-02-28] MEDS: traZODone HCL 50 MG TAB PO SCH (20:47)
[2021-02-28] MEDS: FAMOTIDINE 20 MG TAB PO SCH (20:48)
[2021-02-28] MEDS: SODIUM BICARBONATE TAB 650 MG TAB PO SCH (20:48)
[2021-02-28] MEDS ORDERED: carisoprodoL 350 MG TAB PO SCH (21:00)
[2021-02-28] MEDS: TRIAMCINOLONE 0.1% CREAM 80 GM TUBE TOPICAL SCH (21:40)
[2021-02-28] MEDS: GABAPENTIN 300 MG CAP PO SCH (22:05)
[2021-02-28] MEDS: DICYCLOMINE 20 MG TAB PO SCH (22:05)
[2021-02-28] MEDS: QUEtiapine 50 MG TAB PO SCH (22:05)
[2021-02-28] MEDS: HEPARIN SODIUM,PORCINE/PF 5,000 UNIT/0.5 ML SYRINGE SQ SCH (23:37)
[2021-03-01] MEDS: SODIUM CHLORIDE 0.9% 1,000 ML IV SCH (05:56)
[2021-03-01] MEDS: DICYCLOMINE 20 MG TAB PO SCH ×3 (08:19→22:23)
[2021-03-01] MEDS: FAMOTIDINE 20 MG TAB PO SCH (08:19)
[2021-03-01] MEDS: HEPARIN SODIUM,PORCINE/PF 5,000 UNIT/0.5 ML SYRINGE SQ SCH ×2 (08:19→17:03)
[2021-03-01] MEDS: MAGNESIUM OXIDE 400 MG TAB PO SCH ×2 (08:19→21:03)
[2021-03-01] MEDS: TRIAMCINOLONE 0.1% CREAM 80 GM TUBE TOPICAL SCH ×2 (08:19→22:24)
[2021-03-01] MEDS: GABAPENTIN 300 MG CAP PO SCH ×3 (08:19→22:23)
[2021-03-01] MEDS: SODIUM BICARBONATE TAB 650 MG TAB PO SCH ×2 (08:19→21:03)
[2021-03-01] MEDS: ALPRAZolam 0.5 MG TAB PO SCH ×2 (08:19→21:03)
[2021-03-01] MEDS: FOLIC ACID 1 MG TAB PO SCH (08:19)
[2021-03-01] MEDS: PROTEASE PO SCH ×3 (08:20→16:50)
[2021-03-01] MEDS: AMYLASE PO SCH ×3 (08:20→16:50)
[2021-03-01] MEDS: LIPASE PO SCH ×3 (08:20→16:50)
[2021-03-01] MEDS ORDERED: DULoxetine HCL 60 MG CAPSULE.DR PO SCH (09:00)
[2021-03-01] MEDS: MORPHINE SULFATE 2 MG/ML SYRINGE IVP PRN ×3 (13:00→21:05)
[2021-03-01] MEDS: traZODone HCL 50 MG TAB PO SCH (21:03)
[2021-03-01] MEDS: QUEtiapine 50 MG TAB PO SCH (21:03)
[2021-03-02] MEDS: HEPARIN SODIUM,PORCINE/PF 5,000 UNIT/0.5 ML SYRINGE SQ SCH ×3 (00:16→15:43)
[2021-03-02] MEDS: MORPHINE SULFATE 2 MG/ML SYRINGE IVP PRN ×5 (03:07→20:31)
[2021-03-02] MEDS: LIPASE PO SCH ×3 (08:12→15:47)
[2021-03-02] MEDS: PROTEASE PO SCH ×3 (08:12→15:47)
[2021-03-02] MEDS: AMYLASE PO SCH ×3 (08:12→15:47)
[2021-03-02] MEDS: TRIAMCINOLONE 0.1% CREAM 80 GM TUBE TOPICAL SCH ×2 (08:43→20:32)
[2021-03-02] MEDS: ALPRAZolam 0.5 MG TAB PO SCH ×2 (08:44→22:24)
[2021-03-02] MEDS: GABAPENTIN 300 MG CAP PO SCH ×3 (08:44→22:24)
[2021-03-02] MEDS: SODIUM BICARBONATE TAB 650 MG TAB PO SCH ×2 (08:44→20:32)
[2021-03-02] MEDS: MAGNESIUM OXIDE 400 MG TAB PO SCH ×2 (08:44→20:32)
[2021-03-02] MEDS: FOLIC ACID 1 MG TAB PO SCH (08:44)
[2021-03-02] MEDS: FAMOTIDINE 20 MG TAB PO SCH (08:44)
[2021-03-02] MEDS: DULoxetine HCL 30 MG CAPSULE.DR PO SCH (08:44)
[2021-03-02] MEDS: DICYCLOMINE 20 MG TAB PO SCH ×3 (08:45→22:24)
[2021-03-02 11:31] LABS: Basophils # (A) 0.01 X 10*3/uL (0.00-0.10); Basophils % (A) 0.3 %; Eosinophils # (A) 0.04 X 10*3/uL (0.04-0.35); Eosinophils % (A) 1.2 %; HCT 20.8 % (37.2-46.3); HGB 6.5 g/dL (12.0-15.0); Lymphocytes # (A) 1.21 X 10*3/uL (0.90-5.00); Lymphocytes % (A) 35.9 %; MCH 31.6 pg (27.0-32.0); MCHC 31.3 g/dL (32.0-37.0); Mean Platelet Volume 9.4 fL (9.5-12.2); Monocytes # (A) 0.34 X 10*3/uL (0.20-1.00); Monocytes % (A) 10.1 %; Neutrophils # (A) 1.76 X 10*3/uL (1.80-7.70); Neutrophils % (A) 52.2 %; Platelet Count 243 X 10*3/uL (140-440); RBC 2.06 X 10*6/uL (4.10-5.20); RDW 13.6 % (11.5-14.5); WBC 3.37 X 10*3/uL (4.50-10.00)
[2021-03-02 11:32] LABS: Acanthocytes 2+
[2021-03-02 12:35] LABS: African American GFR (CKD) 67.5 (60.0-200.0); Albumin/Globulin Ratio 1.67 (1.60-3.17); Anion Gap 6.2 mmol/L (4.00-12.00); Calcium 8.3 mg/dL (8.7-10.3); Carbon Dioxide 20.8 mmol/L (21.6-31.8); Globulin 1.8 g/dL (1.6-3.3); Non-African American GFR(CKD) 58.2 (60.0-200.0); Potassium 3.8 mmol/L (3.5-5.5); Total Bilirubin 0.1 mg/dL (0.2-1.2); Total Protein 4.8 g/dL (6.2-8.2)
--- NOTE | 2021-03-02 12:40 | P.CNOR ---
History of Present Illness - [facility] Consult date: 03/02/21 Requesting physician: Meseret Haq Consult reason: fracture (L4 compression fracture deformity), low back pain History of present illness: Patient is a pleasant 65-year-old female who is seen and examined at bedside for further evaluation for an L4 compression fracture deformity. She initially presented to the emergency department on 02/28/2021 with some altered mental status at that time. She had taken some pain medication prior to her presentation to the emergency department. She states at the bedside she recently had MRI imaging performed daily, [facility]. She was diagnosed with an L4 compression fracture deformity. Her MRI was performed on 02/26/2021. She is currently admitted to Dr. Haq. She is not currently experiencing any significant lower extremity radiculopathy bilaterally. She does admit to increased low back pain with coughing, sneezing, increase activities. She states her symptoms have been ongoing over the past 4 weeks. She still states she has a history of erythema nodosum of the bilateral lower extremities greater on the right than the left. She has a history of previous surgical intervention with fusion performed in [address] She has not required any other surgical intervention at her lumbar spine since that time. She is currently being seen and examined by medicine for other medical diagnoses which includes altered mental status at presentation, fibromyalgia, history of CVA/TIA, COPD, hypertension, anemia and history of lupus. Patient states she does have a history of previous right hip fracture with pinning. She recently did have CT imaging of the films performed on 01/31/2021 which upon my review does show evidence of an L4 compression fracture deformity. X-rays of the lumbosacral spine are currently pending. Past Medical History Past Medical History: Cancer, COPD, CVA/TIA, Fibromyalgia, Hypertension Additional Past Medical History / Comment(s): Lupus, TIA, right hand tendons severed, closed head injury, multiple sclerosis, short bowel syndrome, pancreatic insufficiency, bowel cancer History of Any Multi-Drug Resistant Organisms: C-DIFF Year Discovered:: 2014 MDRO Source:: patient Past Surgical History: Appendectomy, Back Surgery, Section, Orthopedic Surgery Additional Past Surgical History / Comment(s): stomach cancer, right hemicolectomy and small bowel resection Past Anesthesia/Blood Transfusion Reactions: No Reported Reaction Past Psychological History: Anxiety, Bipolar, Depression, PTSD Smoking Status: Current every day smoker Past Alcohol Use History: None Reported Additional Past Alcohol Use History / Comment(s): Patient is a smoker of 2-3 packs per day since she was 12 years of age and has recently cut back to 4 cigarettes per day. She denies any alcohol use. Past Drug Use History: None Reported - Past Family History Father Additional Family Medical History / Comment(s): Father has history of diabetes and stomach problems. Mother Additional Family Medical History / Comment(s): Mother has history of diabetes, coronary artery disease and COPD. Sister(s) Additional Family Medical History / Comment(s): Patient has sisters all have female problems. She does state there is breast cancer history in her aunt. Son(s) Family Medical History: No Reported History Additional Family Medical History / Comment(s): Patient has one son with no major medical problems. Medications and Allergies Home Medications Medication Instructions Recorded Confirmed Type DULoxetine HCL [Cymbalta] 60 mg PO DAILY 05/24/17 02/28/21 History Folic Acid 1 mg PO DAILY 05/24/17 02/28/21 History Magnesium Oxide [Mag-Ox] 400 mg PO BID 05/24/17 02/28/21 History traZODone HCL 150 mg PO HS 02/27/18 02/28/21 History Dicyclomine [Bentyl] 20 mg PO TID 07/10/18 02/28/21 History Albuterol Sulfate [Proair Hfa] 1 puff INHALATION RT-Q4H PRN 10/20/19 02/28/21 History Sodium Bicarbonate Tab 650 mg PO BID 10/20/19 02/28/21 History Famotidine [Pepcid] 20 mg PO BID 11/06/19 02/28/21 History Lipase/Protease/Amylase [Zenpep Dr 80,000 units PO TID-W/MEALS 11/06/19 02/28/21 History 40,000 Unit Capsule] Loperamide HCl [Imodium A-D] 2 mg PO TID PRN 11/06/19 02/28/21 History ALPRAZolam [Xanax] 0.5 mg PO BID #6 tab 11/11/19 02/28/21 Rx Gabapentin [Neurontin] 300 mg PO TID #9 cap 11/11/19 02/28/21 Rx HYDROcodone/APAP 5-325MG [[place] 1 tab PO BID PRN 06/22/20 02/28/21 History 5-325] QUEtiapine [SEROquel] 50 mg PO HS 06/22/20 02/28/21 History Ergocalciferol (Vitamin D2) 1,250 mcg PO Q14D 01/31/21 02/28/21 History [Drisdol (50,000 Iu)] carisoprodoL [Soma] 350 mg PO HS 01/31/21 02/28/21 History Triamcinolone 0.1% Cream [Kenalog 1 applic TOPICAL BID #30 gram 02/12/21 02/28/21 Rx 0.1% Cream] Allergies Allergy/AdvReac Type Severity Reaction Status Date / Time alcohol Allergy Vomiting Verified 02/08/21 17:20 aspirin Allergy Unknown Verified 02/08/21 17:20 divalproex sodium Allergy Unknown Verified 02/08/21 17:20 [From Depakote] erythromycin base Allergy Unknown Verified 02/08/21 17:20 ketorolac [From Toradol] Allergy Unknown Verified 02/08/21 17:20 Penicillins Allergy Unknown Verified 02/08/21 17:20 shellfish derived [Shellfish] Allergy Unknown Verified 02/08/21 17:20 strawberry Allergy Unknown Verified 02/08/21 17:20 Sulfa (Sulfonamide Allergy Unknown Verified 02/08/21 17:20 Antibiotics) Physical Examination Physical exam: Patient is awake, alert, and oriented 3 Vital signs stable Good chest excursion with deep inspiration and expiration Examination of lumbar spine reveals skin is intact with no abrasions, lacerations, or bruises; no erythema, purulence or signs of infection Increased pain at the lumbar spine with rolling over in bed Some generalized pain with palpation along the midline of the lumbar spine Evidence of a well-healed incision along the lumbosacral spine at the midline and over the right iliac crest Evidence of a tattoo over the left upper buttock Dorsiflexion, plantarflexion, and extensor hallucis longus positive sustained bilaterally Lower extremity strength 5/5 bilaterally No lower extremity hyperreflexia bilaterally Straight leg test negative bilateral lower extremities Patient is able to lift legs independently and without difficulty No signs or symptoms of DVT; no calf pain No pain with internal and external rotation of the hips bilaterally Neurovascularly intact Evidence of some skin changes of bilateral lower extremities greater on the right than Results Pertinent studies: CT of the abdomen and pelvis taken on 01/31/2021: Evidence of retained lumbosacral fusion hardware at L5-S1; evidence of L4 compression fracture deformity of the superior endplate with approximately 20% height loss; overall alignment is maintained; no evidence of spondylolisthesis; no significant degenerative disc disease - Labs Labs: Abnormal Lab Results - Last 24 Hours (Table) 03/02/21 Range/Units 06:52 WBC 3.37 L (4.50-10.00) X 10*3/uL RBC 2.06 L (4.10-5.20) X 10*6/uL Hgb 6.5 L* (12.0-15.0) g/dL Hct 20.8 L (37.2-46.3) % MCV 101.0 H (80.0-97.0) fL MCHC 31.3 L (32.0-37.0) g/dL MPV 9.4 L (9.5-12.2) fL Neutrophils # 1.76 L (1.80-7.70) X 10*3/uL H & H 02/28/21 03/02/21 Range/Units 14:26 06:52 Hgb 7.3 L D 6.5 L* (11.4-16.0) gm/dL Hct 21.8 L 20.8 L (34.0-46.0) % Coagulation 02/28/21 Range/Units 14:26 INR 0.9 (<1.2) Result Diagrams: 03/02/21 06:52 03/02/21 06:52 Assessment and Plan Assessment: Assessment: Acute to subacute L4 compression fracture deformity Low back pain History of lumbar fusion performed in 1974 Altered mental status at presentation Anemia COPD History of CVA/TIA Fibromyalgia Hypertension Lupus History of right hip fracture with pinning History of erythema nodosum of the bilateral lower extremity (1) Compression fracture of L4 vertebra Current Visit: Yes Status: Acute Code(s): S32.040A - WEDGE COMPRESSION FRACTURE OF FOURTH LUMBAR VERTEBRA, INIT SNOMED Code(s): 181205229 (2) Acute low back pain Current Visit: Yes Status: Acute Code(s): M54.5 - LOW BACK PAIN SNOMED Code(s): 380089070 (3) History of lumbar spinal fusion Current Visit: Yes Status: Acute Code(s): Z98.1 - ARTHRODESIS STATUS SNOMED Code(s): 16059432061235 (4) Lupus Current Visit: Yes Status: Acute Code(s): M32.9 - SYSTEMIC LUPUS ERYTHEMATOSUS, UNSPECIFIED SNOMED Code(s): 843285543 (5) Altered mental status Current Visit: Yes Status: Acute Code(s): R41.82 - ALTERED MENTAL STATUS, UNSPECIFIED SNOMED Code(s): 723726720 (6) Erythema nodosum Current Visit: No Status: Acute Code(s): L52 - ERYTHEMA NODOSUM SNOMED Code(s): 01456182 (7) Anemia Current Visit: No Status: Chronic Code(s): D64.9 - ANEMIA, UNSPECIFIED SNOMED Code(s): 441882048 (8) Fibromyalgia Current Visit: Yes Status: Acute Code(s): M79.7 - FIBROMYALGIA SNOMED Code(s): 046173769 (9) Hypertension Current Visit: Yes Status: Acute Code(s): I10 - ESSENTIAL (PRIMARY) HYPERTENSION SNOMED Code(s): 97129746 (10) COPD (chronic obstructive pulmonary disease) Current Visit: Yes Status: Acute Code(s): J44.9 - CHRONIC OBSTRUCTIVE PULMONARY DISEASE, UNSPECIFIED SNOMED Code(s): 12663366 (11) History of CVA (cerebrovascular accident) Current Visit: Yes Status: Acute Code(s): Z86.73 - PRSNL HX OF TIA (TIA), AND CEREB INFRC W/O RESID DEFICITS SNOMED Code(s): 009307700 (12) History of fracture of right hip Current Visit: Yes Status: Acute Code(s): Z87.81 - PERSONAL HISTORY OF (HEALED) TRAUMATIC FRACTURE SNOMED Code(s): 857285471 Plan: Plan: 1. Initially some documentation was hard to obtain. Patient has been discussed in detail with medicine who is well established with the patient. A lumbar MRI was recently performed a [facility] on 02/26/2021 with a diagnosis of L4 compression fracture deformity. Reviewing of CT imaging of the abdomen and pelvis taken on 01/31/2021 does show evidence of an L4 compression fracture deformity. Further x-ray imaging of her lumbosacral spine at this admission is pending. Patient does admit increased low back pain which is exacerbated coughing, sneezing, bending, and twisting activities. After physical examination the patient, further discussion with medicine, and further discussion with the patient, will currently plan to continue with conservative treatment at this time. Patient states she would like to work through conservative treatment options and try to avoid surgical intervention. At this time we'll plan for bracing. A prescription has been written and provided to case management for an [employer]os LSO brace. Once this brace is delivered and fitted appropriately, patient should wear this brace while sitting upright at greater than 45, during increase activities, during ambulation. Brace does not have to or while lying in bed or while bathing. Following fitting of this brace, patient is clear for discharge from an orthopedic spine standpoint. Following discharge, patient may follow-up with Jose Lee PA-C or Dr. Arnie Chavez at [facility]. X-ray imaging of the lumbosacral spine is currently pending. Orders have been placed for 2-3 view of the lumbar spine. We discussed we'll plan to review this imaging and further detail. 2. Patient has been discussed in detail with medicine who agrees with this plan as well. They will continue to follow the patient for her other medical diagnoses including anemia. Time with Patient: Greater than 30 (Including obtaining history, physical examination, reviewing of imaging, and dictation.)
--- NOTE | 2021-03-02 16:15 | XR ---
EXAMINATION TYPE: XR lumbar spine 2 or 3V DATE OF EXAM: 03/02/2021 CLINICAL HISTORY: L4 fracture. Pain. TECHNIQUE: Frontal and lateral images of the lumbar spine are obtained. COMPARISON: CT abdomen and pelvis January 31, 2021 FINDINGS: There are 5 lumbar type vertebral bodies redemonstrated. Osseous structures are deminerali zed. Mild height loss consistent with subacute fracture through the superior L4 endplate redemonstrat ed. Alignment satisfactory and stable. Postsurgical changes to the posterior elements of lumbosacral junction redemonstrated. Multilevel spinous process hypertrophy and facet arthropathy lower lumbar sp ine redemonstrated. Overlying soft tissue unremarkable. IMPRESSION: As above.
[2021-03-02 17:14] LABS: % Iron Saturation 14.93 (12.00-45.00)
[2021-03-02 17:21] LABS: Ferritin 214.1 ng/mL (10.0-291.0)
[2021-03-02] MEDS: traZODone HCL 50 MG TAB PO SCH (20:31)
[2021-03-02] MEDS: QUEtiapine 50 MG TAB PO SCH (20:32)
[2021-03-03] MEDS: HEPARIN SODIUM,PORCINE/PF 5,000 UNIT/0.5 ML SYRINGE SQ SCH ×2 (00:04→08:12)
[2021-03-03] MEDS: MORPHINE SULFATE 2 MG/ML SYRINGE IVP PRN ×3 (00:24→09:54)
[2021-03-03] MEDS: PROTEASE PO SCH ×4 (07:34→12:24)
[2021-03-03] MEDS: AMYLASE PO SCH ×4 (07:34→12:24)
[2021-03-03] MEDS: LIPASE PO SCH ×4 (07:34→12:24)
--- NOTE | 2021-03-03 07:55 | P.DS ---
Providers Date of admission: 02/28/21 16:25 Expected date of discharge: 03/03/21 Attending physician: Meseret Haq Consults: 03/01/21 12:31 Consult Physician Routine Consulting Provider: Kvng Chavez Consult Reason/Comments: L4 Fracture Do you want consulting provider notified?: Yes 03/02/21 12:45 Consult Physician Routine Consulting Provider: Norman Lemos Consult Reason/Comments: anemia Do you want consulting provider notified?: Yes Primary care physician: Meseret Haq Patient Condition at Discharge: Stable Plan - Discharge Summary Discharge Rx Participant: Yes New Discharge Prescriptions: Continue Magnesium Oxide [Mag-Ox] 400 mg PO BID Folic Acid 1 mg PO DAILY DULoxetine HCL [Cymbalta] 60 mg PO DAILY traZODone HCL 150 mg PO HS Dicyclomine [Bentyl] 20 mg PO TID Sodium Bicarbonate Tab 650 mg PO BID Albuterol Sulfate [Proair Hfa] 1 puff INHALATION RT-Q4H PRN PRN Reason: Shortness Of Breath Lipase/Protease/Amylase [Zenpep Dr 40,000 Unit Capsule] 80,000 units PO AC- TID Famotidine [Pepcid] 20 mg PO BID Loperamide HCl [Imodium A-D] 2 mg PO TID PRN PRN Reason: Diarrhea QUEtiapine [SEROquel] 50 mg PO HS Ergocalciferol (Vitamin D2) [Drisdol (50,000 Iu)] 1,250 mcg PO Q14D Triamcinolone 0.1% Cream [Kenalog 0.1% Cream] 1 applic TOPICAL BID #30 gram Gabapentin [Neurontin] 300 mg PO TID #9 cap carisoprodoL [Soma] 350 mg PO HS Discontinued ALPRAZolam [Xanax] 0.5 mg PO BID #6 tab HYDROcodone/APAP 5-325MG [[place] 5-325] 1 tab PO BID PRN PRN Reason: Pain No Action HYDROcodone/APAP 5-325MG [[place] 5-325] 0.5 tab PO BID PRN #6 tab PRN Reason: Pain ALPRAZolam [Xanax] 0.25 mg PO BID #6 tab Discharge Medication List DULoxetine HCL [Cymbalta] 60 mg PO DAILY 05/24/17 [History] Folic Acid 1 mg PO DAILY 05/24/17 [History] Magnesium Oxide [Mag-Ox] 400 mg PO BID 05/24/17 [History] traZODone HCL 150 mg PO HS 02/27/18 [History] Dicyclomine [Bentyl] 20 mg PO TID 07/10/18 [History] Albuterol Sulfate [Proair Hfa] 1 puff INHALATION RT-Q4H PRN 10/20/19 [History] Sodium Bicarbonate Tab 650 mg PO BID 10/20/19 [History] Famotidine [Pepcid] 20 mg PO BID 11/06/19 [History] Lipase/Protease/Amylase [Zenpep Dr 40,000 Unit Capsule] 80,000 units PO AC-TID 11/06/19 [History] Loperamide HCl [Imodium A-D] 2 mg PO TID PRN 11/06/19 [History] QUEtiapine [SEROquel] 50 mg PO HS 06/22/20 [History] Ergocalciferol (Vitamin D2) [Drisdol (50,000 Iu)] 1,250 mcg PO Q14D 01/31/21 [ History] carisoprodoL [Soma] 350 mg PO HS 01/31/21 [History] Triamcinolone 0.1% Cream [Kenalog 0.1% Cream] 1 applic TOPICAL BID #30 gram 02/12/21 [Rx] Gabapentin [Neurontin] 300 mg PO TID #9 cap 03/03/21 [Rx] ALPRAZolam [Xanax] 0.25 mg PO BID #6 tab 03/08/21 [Rx] HYDROcodone/APAP 5-325MG [[place] 5-325] 0.5 tab PO BID PRN #6 tab 03/08/21 [Rx] Follow up Appointment(s)/Referral(s): Meseret Haq MD [Primary Care Provider] - 1 Week (Office closed. Please call office tomorrow for appointment. Thank you.) Jose Lee PAC [PHYSICIAN TRACK REPAIR WORKER] - 03/19/21 10:30 am (Patient may follow-up with Jose Lee PA-C or Dr. Arnie Chavez at [facility] in 2-3 weeks following discharge. ) [facility], [NON-STAFF] - As Needed [facility] [NON-STAFF] - As Needed (LSO Back brace) Patient Instructions/Handouts: Vertebral Compression Fracture (DC) Activity/Diet/Wound Care/Special Instructions: 1. Patient may wear LSO brace for comfort and support while sitting upright at greater than 45, while working with therapy, and while ambulating; patient does not have to wear the brace while lying in bed or bathing 2. Patient should avoid excessive bending, twisting, and lifting; no lifting greater than 10 pounds Discharge Disposition: HOME SELF-CARE
[2021-03-03] MEDS: SODIUM BICARBONATE TAB 650 MG TAB PO SCH (08:11)
[2021-03-03] MEDS: FOLIC ACID 1 MG TAB PO SCH (08:11)
[2021-03-03] MEDS: ALPRAZolam 0.5 MG TAB PO SCH (08:11)
[2021-03-03] MEDS: GABAPENTIN 300 MG CAP PO SCH (08:11)
[2021-03-03] MEDS: DICYCLOMINE 20 MG TAB PO SCH (08:12)
[2021-03-03] MEDS: TRIAMCINOLONE 0.1% CREAM 80 GM TUBE TOPICAL SCH (08:12)
[2021-03-03] MEDS: FAMOTIDINE 20 MG TAB PO SCH (08:12)
[2021-03-03] MEDS: DULoxetine HCL 30 MG CAPSULE.DR PO SCH (08:12)
[2021-03-03] MEDS: MAGNESIUM OXIDE 400 MG TAB PO SCH (08:12)
[2021-03-03 09:14] LABS: HCT 25.5 % (37.2-46.3); HGB 8.3 g/dL (12.0-15.0); MCH 31.3 pg (27.0-32.0); MCHC 32.5 g/dL (32.0-37.0); MCV 96.2 fL (80.0-97.0); Mean Platelet Volume 9.2 fL (9.5-12.2); Platelet Count 249 X 10*3/uL (140-440); RBC 2.65 X 10*6/uL (4.10-5.20); RDW 13.8 % (11.5-14.5); WBC 3.26 X 10*3/uL (4.50-10.00)
[2021-03-03 10:26] LABS: Basophils # (A) 0 X 10*3/uL (0.00-0.10); Basophils % (A) 0 %; Eosinophils # (A) 0.05 X 10*3/uL (0.04-0.35); Eosinophils % (A) 1.5 %; Lymphocytes # (A) 1.25 X 10*3/uL (0.90-5.00); Lymphocytes % (A) 38.3 %; Monocytes # (A) 0.39 X 10*3/uL (0.20-1.00); Neutrophils # (A) 1.55 X 10*3/uL (1.80-7.70); Neutrophils % (A) 47.6 %
[2021-03-03 11:42] VITALS: RESP 18
--- NOTE | 2021-03-03 12:43 | P.CONS ---
History of Present Illness - Reason for Consult Consult date: 03/02/21 Anemia Requesting physician: Annalisa Delcid - History of Present Illness Tegan is a patient with chronic anemia, B12 deficiency, Chronic inflammation, and iron deficiency anemia who is known to our practice with primary hematologst Dr. Lemos. Review of Systems All systems: negative Constitutional: Reports as per HPI Past Medical History Past Medical History: Cancer, COPD, CVA/TIA, Fibromyalgia, Hypertension Additional Past Medical History / Comment(s): Lupus, TIA, right hand tendons severed, closed head injury, multiple sclerosis, short bowel syndrome, pancreat ic insufficiency, bowel cancer History of Any Multi-Drug Resistant Organisms: C-DIFF Year Discovered:: 2014 MDRO Source:: patient Past Surgical History: Appendectomy, Back Surgery, Section, Orthopedic Surgery Additional Past Surgical History / Comment(s): stomach cancer, right hemicolectomy and small bowel resection Past Anesthesia/Blood Transfusion Reactions: No Reported Reaction Past Psychological History: Anxiety, Bipolar, Depression, PTSD Smoking Status: Current every day smoker Past Alcohol Use History: None Reported Additional Past Alcohol Use History / Comment(s): Patient is a smoker of 2-3 packs per day since she was 12 years of age and has recently cut back to 4 cigarettes per day. She denies any alcohol use. Past Drug Use History: None Reported - Past Family History Father Additional Family Medical History / Comment(s): Father has history of diabetes and stomach problems. Mother Additional Family Medical History / Comment(s): Mother has history of diabetes, coronary artery disease and COPD. Sister(s) Additional Family Medical History / Comment(s): Patient has sisters all have female problems. She does state there is breast cancer history in her aunt. Son(s) Family Medical History: No Reported History Additional Family Medical History / Comment(s): Patient has one son with no major medical problems. Medications and Allergies Home Medications Medication Instructions Recorded Confirmed Type DULoxetine HCL [Cymbalta] 60 mg PO DAILY 05/24/17 02/28/21 History Folic Acid 1 mg PO DAILY 05/24/17 02/28/21 History Magnesium Oxide [Mag-Ox] 400 mg PO BID 05/24/17 02/28/21 History traZODone HCL 150 mg PO HS 02/27/18 02/28/21 History Dicyclomine [Bentyl] 20 mg PO TID 07/10/18 02/28/21 History Albuterol Sulfate [Proair Hfa] 1 puff INHALATION RT-Q4H PRN 10/20/19 02/28/21 History Sodium Bicarbonate Tab 650 mg PO BID 10/20/19 02/28/21 History Famotidine [Pepcid] 20 mg PO BID 11/06/19 02/28/21 History Lipase/Protease/Amylase [Zenpep Dr 80,000 units PO TID-W/MEALS 11/06/19 02/28/21 History 40,000 Unit Capsule] Loperamide HCl [Imodium A-D] 2 mg PO TID PRN 11/06/19 02/28/21 History QUEtiapine [SEROquel] 50 mg PO HS 06/22/20 02/28/21 History Ergocalciferol (Vitamin D2) 1,250 mcg PO Q14D 01/31/21 02/28/21 History [Drisdol (50,000 Iu)] carisoprodoL [Soma] 350 mg PO HS 01/31/21 02/28/21 History Triamcinolone 0.1% Cream [Kenalog 1 applic TOPICAL BID #30 gram 02/12/21 02/28/21 Rx 0.1% Cream] ALPRAZolam [Xanax] 0.5 mg PO BID #6 tab 03/03/21 Rx Gabapentin [Neurontin] 300 mg PO TID #9 cap 03/03/21 Rx HYDROcodone/APAP 5-325MG [[place] 1 tab PO BID PRN #6 tab 03/03/21 Rx 5-325] Allergies Allergy/AdvReac Type Severity Reaction Status Date / Time alcohol Allergy Vomiting Verified 02/08/21 17:20 aspirin Allergy Unknown Verified 02/08/21 17:20 divalproex sodium Allergy Unknown Verified 02/08/21 17:20 [From Depakote] erythromycin base Allergy Unknown Verified 02/08/21 17:20 ketorolac [From Toradol] Allergy Unknown Verified 02/08/21 17:20 Penicillins Allergy Unknown Verified 02/08/21 17:20 shellfish derived [Shellfish] Allergy Unknown Verified 02/08/21 17:20 strawberry Allergy Unknown Verified 02/08/21 17:20 Sulfa (Sulfonamide Allergy Unknown Verified 02/08/21 17:20 Antibiotics) Physical Exam Vitals: Vital Signs Temp Pulse Pulse Resp BP BP Pulse Ox 03/02/21 18:47 98.9 F 70 168/74 03/02/21 18:18 71 152/73 97 03/02/21 17:22 98.7 F 66 170/84 98 03/02/21 17:00 99.5 F 69 18 174/99 97 03/02/21 16:52 99.2 F 69 18 162/81 97 03/02/21 16:42 98.7 F 68 18 156/71 98 03/02/21 14:00 98.5 F 60 19 147/73 97 03/02/21 11:42 150/82 03/02/21 08:43 95 03/02/21 08:00 98.6 F 69 18 03/02/21 02:11 98.7 F 73 17 152/67 96 Intake and Output 03/02/21 03/02/21 03/02/21 06:59 14:59 22:59 Intake Total 380 279 Balance 380 279 Intake: Oral 380 Blood Product 279 Rc Pheresis 2 As3 Unit 279 [id number] Other: # Voids 1 1 Results CBC & Chem 7: 03/03/21 06:26 03/02/21 06:52 Labs: Abnormal Lab Results - Last 24 Hours (Table) 03/02/21 03/02/21 03/02/21 Range/Units 06:52 06:52 06:52 WBC 3.37 L (4.50-10.00) X 10*3/uL RBC 2.06 L (4.10-5.20) X 10*6/uL Hgb 6.5 L* (12.0-15.0) g/dL Hct 20.8 L (37.2-46.3) % MCV 101.0 H (80.0-97.0) fL MCHC 31.3 L (32.0-37.0) g/dL MPV 9.4 L (9.5-12.2) fL Neutrophils # 1.76 L (1.80-7.70) X 10*3/uL Carbon Dioxide 20.8 L (21.6-31.8) mmol/L Est GFR (CKD-EPI)NonAf 58.2 L (60.0-200.0) Calcium 8.3 L (8.7-10.3) mg/dL Iron 33 L (50-170) ug/dL TIBC 221 L (228-460) ug/dL Total Bilirubin 0.1 L (0.2-1.2) mg/dL AST 12 L (13-35) U/L Total Protein 4.8 L (6.2-8.2) g/dL Albumin 3.00 L (3.80-4.90) g/dL Crossmatch 03/02/21 Range/Units 12:34 WBC (4.50-10.00) X 10*3/uL RBC (4.10-5.20) X 10*6/uL Hgb (12.0-15.0) g/dL Hct (37.2-46.3) % MCV (80.0-97.0) fL MCHC (32.0-37.0) g/dL MPV (9.5-12.2) fL Neutrophils # (1.80-7.70) X 10*3/uL Carbon Dioxide (21.6-31.8) mmol/L Est GFR (CKD-EPI)NonAf (60.0-200.0) Calcium (8.7-10.3) mg/dL Iron (50-170) ug/dL TIBC (228-460) ug/dL Total Bilirubin (0.2-1.2) mg/dL AST (13-35) U/L Total Protein (6.2-8.2) g/dL Albumin (3.80-4.90) g/dL Crossmatch See Detail Assessment and Plan Plan: Patient will need to fgollow-up in office, states she has not shown for last 2 appointments and has not continued on her B12 or epogen injections. I will ask our office to schedule for patient 1-2 weeks
[2021-03-03 15:04] VITALS: BP 135/67; PULSE 70; TEMP 99
[2021-03-03 15:43] LABS: Erythrocyte Sedimentation Rate 63 mm/Hr (0-30)
[2021-03-03 23:32] LABS: ALT <8 U/L (8-44); AST 13 U/L (13-35); African American GFR (CKD) 54.2 (60.0-200.0); Albumin/Globulin Ratio 2.06 (1.60-3.17); Alkaline Phosphatase 85 U/L (41-126); BUN/Creat Ratio 13.33 Ratio (12.00-20.00); Calcium 8.3 mg/dL (8.7-10.3); Carbon Dioxide 18.5 mmol/L (21.6-31.8); Chloride 107 mmol/L (96-109); Globulin 1.7 g/dL (1.6-3.3); Glucose 86 mg/dL (70-110); Non-African American GFR(CKD) 46.7 (60.0-200.0); Potassium 3.8 mmol/L (3.5-5.5); Sodium 139 mmol/L (135-145); Total Bilirubin 0.2 mg/dL (0.3-1.2); Total Protein 5.2 g/dL (6.2-8.2)
[2021-03-03 23:51] LABS: Rheumatoid Factor, Qnt 8 IU/mL (0-15)
[2021-03-03 23:53] LABS: LDH 241 U/L (120-246)
[2021-03-04 00:14] LABS: Folate, Serum >24.0 ng/mL
[2021-03-04 01:15] LABS: Protein, Total 5.3 g/dL (6.2-8.2)
[2021-03-04 10:40] LABS: Free Kappa Lt Chain Qnt, Serum 1.75 mg/dL (0.33-1.94)
[2021-03-04 13:59] LABS: Albumin 2.74 g/dL (3.80-4.90); Gamma Globulin 0.46 g/dL (0.70-1.50)
[2021-03-10] MEDS ORDERED: ERGOCALCIFEROL 1,250 MCG (50,000 IU) CAPSULE PO SCH (09:00)
== END 2021-03-03 15:17 | disposition home or self-care (01) | DRG 544 ==
LOC: EC 13:57 → 4SSUR 16:25
PROVIDERS: ADMIT Internal Medicine; ATTEND Internal Medicine
DX: M48.56XA Collapsed vertebra, not elsewhere classified, lumbar region, initial encounter for fracture (principal); D50.9 Iron deficiency anemia, unspecified; D72.819 Decreased white blood cell count, unspecified; F31.9 Bipolar disorder, unspecified; G35 Multiple sclerosis; J44.9 Chronic obstructive pulmonary disease, unspecified; M32.9 Systemic lupus erythematosus, unspecified; E53.8 Deficiency of other specified B group vitamins; F17.210 Nicotine dependence, cigarettes, uncomplicated; L52 Erythema nodosum; I10 Essential (primary) hypertension; M79.7 Fibromyalgia; R41.82 Altered mental status, unspecified; R31.9 Hematuria, unspecified; F43.10 Post-traumatic stress disorder, unspecified; F41.9 Anxiety disorder, unspecified; Z86.73 Personal history of transient ischemic attack (TIA), and cerebral infarction without residual deficits; Z85.028 Personal history of other malignant neoplasm of stomach; Z79.899 Other long term (current) drug therapy; Z98.1 Arthrodesis status; Z88.6 Allergy status to analgesic agent; Z88.1 Allergy status to other antibiotic agents
CPT/HCPCS: 36415; 70450; 71045; 72100; 80053; 80143; 80179; 80306; 80320; 81001; 82140; 82607; 82668; 82728; 82746; 82784; 83010; 83540; 83550; 83615; 83883; 84165; 84425; 84484; 85025; 85610; 85652; 85730; 86038; 86334; 86431; 86850; 86900; 86901; 86920; 93005; 94760; 96361; 96372; 96374; 99285

== ENCOUNTER 2021-03-05 19:41 | Observation (INO) | payer MEDICARE, OTHER ==
[2021-03-05] MEDS ORDERED: SODIUM CHLORIDE 0.9% 500 ML 500 ML IV STA (20:42)
--- NOTE | 2021-03-05 20:49 | ED ---
General Adult HPI - General Chief complaint: Neuro Symptoms/Deficit Stated complaint: Altered Mental Status Time Seen by Provider: 03/05/21 20:30 Source: patient, family Mode of arrival: wheelchair Limitations: altered mental status - History of Present Illness Initial comments: 65 year-old female patient presents with son for evaluation of confusion. Son who is a nurse spoke to her on the phone around 1500 this afternoon and she seemed to be doing well and answering questions appropriately. When he got out of work at 1900 he stopped at her house and she was on the phone, she was not making any sense on the phone and sounded confused. The caregiver who was on the phone with her stated that she was confused throughout the conversation and they had been on the phone for about 57 minutes. Patient did a mini stroke exam, FAST, and she had mild left arm drift and was not making any sense when she talked. Patient does report blurred vision. She is complaining of low back pain, does have a known L4 compression fracture. She denies any numbness, tingling, weakness. Denies any headache. Denies any recent falls. Patient denies any recent rash, cough, shortness of breath, chest pain, abdominal pain, nausea, vomiting, diarrhea, constipation, back pain, dizziness, hematuria, dysuria, urinary urgency, urinary frequency, or any other complaints. - Related Data Home Medications Medication Instructions Recorded Confirmed DULoxetine HCL [Cymbalta] 60 mg PO DAILY 05/24/17 03/05/21 Folic Acid 1 mg PO DAILY 05/24/17 03/05/21 Magnesium Oxide [Mag-Ox] 400 mg PO BID 05/24/17 03/05/21 traZODone HCL 150 mg PO HS 02/27/18 03/05/21 Dicyclomine [Bentyl] 20 mg PO TID 07/10/18 03/05/21 Albuterol Sulfate [Proair Hfa] 1 puff INHALATION RT-Q4H PRN 10/20/19 03/05/21 Sodium Bicarbonate Tab 650 mg PO BID 10/20/19 03/05/21 Famotidine [Pepcid] 20 mg PO BID 11/06/19 03/05/21 Lipase/Protease/Amylase [Zenpep Dr 80,000 units PO AC-TID 11/06/19 03/05/21 40,000 Unit Capsule] Loperamide HCl [Imodium A-D] 2 mg PO TID PRN 11/06/19 03/05/21 QUEtiapine [SEROquel] 50 mg PO HS 06/22/20 03/05/21 Ergocalciferol (Vitamin D2) 1,250 mcg PO Q14D 01/31/21 03/05/21 [Drisdol (50,000 Iu)] carisoprodoL [Soma] 350 mg PO HS 01/31/21 03/05/21 Previous Rx's Medication Instructions Recorded Triamcinolone 0.1% Cream [Kenalog 1 applic TOPICAL BID #30 gram 02/12/21 0.1% Cream] ALPRAZolam [Xanax] 0.5 mg PO BID #6 tab 03/03/21 Gabapentin [Neurontin] 300 mg PO TID #9 cap 03/03/21 HYDROcodone/APAP 5-325MG [Gary 1 tab PO BID PRN #6 tab 03/03/21 5-325] Allergies Allergy/AdvReac Type Severity Reaction Status Date / Time alcohol Allergy Vomiting Verified 03/05/21 20:03 aspirin Allergy Unknown Verified 03/05/21 20:03 divalproex sodium Allergy Unknown Verified 03/05/21 20:03 [From Depakote] erythromycin base Allergy Unknown Verified 03/05/21 20:03 ketorolac [From Toradol] Allergy Unknown Verified 03/05/21 20:03 Penicillins Allergy Unknown Verified 03/05/21 20:03 shellfish derived [Shellfish] Allergy Unknown Verified 03/05/21 20:03 strawberry Allergy Unknown Verified 03/05/21 20:03 Sulfa (Sulfonamide Allergy Unknown Verified 03/05/21 20:03 Antibiotics) Review of Systems ROS Statement: Those systems with pertinent positive or pertinent negative responses have been documented in the HPI. ROS Other: All systems not noted in ROS Statement are negative. Past Medical History Past Medical History: Cancer, COPD, CVA/TIA, Fibromyalgia, Hypertension Additional Past Medical History / Comment(s): Lupus, TIA, right hand tendons severed, closed head injury, multiple sclerosis, short bowel syndrome, pancreatic insufficiency, bowel cancer History of Any Multi-Drug Resistant Organisms: C-DIFF Date of last positivie culture/infection: 2014 MDRO Source:: patient Past Surgical History: Appendectomy, Back Surgery, Section, Orthopedic Surgery Additional Past Surgical History / Comment(s): stomach cancer, right hemicolectomy and small bowel resection Past Anesthesia/Blood Transfusion Reactions: No Reported Reaction Past Psychological History: Anxiety, Bipolar, Depression, PTSD Smoking Status: Current every day smoker Past Alcohol Use History: None Reported Past Drug Use History: None Reported - Past Family History Father Additional Family Medical History / Comment(s): Father has history of diabetes and stomach problems. Mother Additional Family Medical History / Comment(s): Mother has history of diabetes, coronary artery disease and COPD. Sister(s) Additional Family Medical History / Comment(s): Patient has sisters all have female problems. She does state there is breast cancer history in her aunt. Son(s) Family Medical History: No Reported History Additional Family Medical History / Comment(s): Patient has one son with no major medical problems. General Exam Limitations: altered mental status General appearance: alert, in no apparent distress, other (This is a well- developed, well-nourished adult female patient in no acute distress. Vital signs upon presentation are temperature 97.9F, pulse 66, respirations 20, blood pressure 115/70, pulse ox 97% on room air.) Eye exam: Present: normal appearance, PERRL, EOMI. Absent: scleral icterus, conjunctival injection, nystagmus, periorbital swelling Respiratory exam: Present: normal lung sounds bilaterally. Absent: respiratory distress, wheezes, rales, rhonchi, stridor Cardiovascular Exam: Present: regular rate, normal rhythm, normal heart sounds. Absent: systolic murmur, diastolic murmur, rubs, gallop, clicks GI/Abdominal exam: Present: soft, normal bowel sounds. Absent: distended, tenderness, guarding, rebound, rigid Extremities exam: Present: full ROM, normal capillary refill, other (Condition discoloration to the lower legs and feet consistent with venous insufficiency). Absent: tenderness, pedal edema, joint swelling, calf tenderness Neurological exam: Present: alert, CN II-XII intact. Absent: oriented X3 (Oriented 1) Expanded Speech: Present: fluid speech Cranial nerves: EOM's Intact: Normal, Tongue Deviation: Normal Upper motor neuron: Pronator Drift: Abnormal Left Motor strength exam: RUE: 4, LUE: 4, RLE: 4, LLE: 4 Psychiatric exam: Present: normal affect, normal mood Skin exam: Present: warm, dry, intact, normal color. Absent: rash Course Vital Signs 03/05/21 03/05/21 03/05/21 19:58 20:52 23:32 Temperature 97.9 F Pulse Rate 66 56 L 54 L Respiratory 20 16 Rate Blood Pressure 115/70 153/78 O2 Sat by Pulse 97 95 Oximetry EKG Findings - EKG Comments: EKG Findings:: EKG obtained at 2105 shows sinus bradycardia with a ventricular rate of 52, W[place] interval 190, QRS duration 90, QT 490, QTC 455. No evidence of S T elevation or depression. Medical Decision Making - Medical Decision Making 65-year-old female patient presented to the emergency department today for evaluation of confusion. Physical examination did reveal patient being alert and oriented 1 only. She did have some mild left arm drift though not sure if this is new as patient has had multiple CVAs and TIAs in the past. Labs reviewed and did reveal hemoglobin 9.7 which is an improvement from previous. Remainder of labs are relatively unremarkable. Awaiting urinalysis. CT of the brain is negative. Chest x-ray negative. She'll be admitted to the hospital for further evaluation and monitoring. We will consult neurology. Case discussed with my attending Dr. Benson. - Lab Data Result diagrams: 03/05/21 Unknown 03/05/21 Unknown Lab Results 03/05/21 03/05/21 03/05/21 Range/Units Unknown Unknown Unknown WBC 3.9 (3.8-10.6) k/uL RBC 2.86 L (3.80-5.40) m/uL Hgb 9.7 L D (11.4-16.0) gm/dL Hct 27.6 L (34.0-46.0) % MCV 96.3 (80.0-100.0) fL MCH 34.0 (25.0-35.0) pg MCHC 35.3 (31.0-37.0) g/dL RDW 13.6 (11.5-15.5) % Plt Count 272 (150-450) k/uL MPV 7.3 Neutrophils % 56 % Lymphocytes % 34 % Monocytes % 7 % Eosinophils % 2 % Basophils % 0 % Neutrophils # 2.2 (1.3-7.7) k/uL Lymphocytes # 1.3 (1.0-4.8) k/uL Monocytes # 0.3 (0-1.0) k/uL Eosinophils # 0.1 (0-0.7) k/uL Basophils # 0.0 (0-0.2) k/uL PT 10.2 (9.0-12.0) sec INR 0.9 (<1.2) APTT 22.8 (22.0-30.0) sec Sodium 137 (137-145) mmol/L Potassium 3.6 (3.5-5.1) mmol/L Chloride 104 (98-107) mmol/L Carbon Dioxide 25 (22-30) mmol/L Anion Gap 8 mmol/L BUN 16 (7-17) mg/dL Creatinine 1.30 H (0.52-1.04) mg/dL Est GFR (CKD-EPI)AfAm 49 (>60 ml/min/1.73 sqM) Est GFR (CKD-EPI)NonAf 43 (>60 ml/min/1.73 sqM) Glucose 81 (74-99) mg/dL Calcium 9.2 (8.4-10.2) mg/dL Total Bilirubin 0.5 (0.2-1.3) mg/dL AST 21 (14-36) U/L ALT 6 (4-34) U/L Alkaline Phosphatase 83 (38-126) U/L Troponin I (0.000-0.034) ng/mL Total Protein 5.9 L (6.3-8.2) g/dL Albumin 3.3 L (3.5-5.0) g/dL 03/05/21 Range/Units Unknown WBC (3.8-10.6) k/uL RBC (3.80-5.40) m/uL Hgb (11.4-16.0) gm/dL Hct (34.0-46.0) % MCV (80.0-100.0) fL MCH (25.0-35.0) pg MCHC (31.0-37.0) g/dL RDW (11.5-15.5) % Plt Count (150-450) k/uL MPV Neutrophils % % Lymphocytes % % Monocytes % % Eosinophils % % Basophils % % Neutrophils # (1.3-7.7) k/uL Lymphocytes # (1.0-4.8) k/uL Monocytes # (0-1.0) k/uL Eosinophils # (0-0.7) k/uL Basophils # (0-0.2) k/uL PT (9.0-12.0) sec INR (<1.2) APTT (22.0-30.0) sec Sodium (137-145) mmol/L Potassium (3.5-5.1) mmol/L Chloride (98-107) mmol/L Carbon Dioxide (22-30) mmol/L Anion Gap mmol/L BUN (7-17) mg/dL Creatinine (0.52-1.04) mg/dL Est GFR (CKD-EPI)AfAm (>60 ml/min/1.73 sqM) Est GFR (CKD-EPI)NonAf (>60 ml/min/1.73 sqM) Glucose (74-99) mg/dL Calcium (8.4-10.2) mg/dL Total Bilirubin (0.2-1.3) mg/dL AST (14-36) U/L ALT (4-34) U/L Alkaline Phosphatase (38-126) U/L Troponin I <0.012 (0.000-0.034) ng/mL Total Protein (6.3-8.2) g/dL Albumin (3.5-5.0) g/dL - Radiology Data Radiology results: report reviewed, image reviewed CT brain without contrast was obtained. Report is reviewed in its entirety. Impression by Dr. Real shows no acute intracranial hemorrhage, midline shift, or mass effect. Two-view x-ray of the chest is obtained. Report was reviewed in its entirety. Impression by Dr. Real shows no acute cardiopulmonary process. Disposition Clinical Impression: Altered mental status Disposition: ADMITTED IP TO THIS [facility] Condition: Serious Decision to Admit Reason: Admit from EC Decision Date: 03/05/21 Decision Time: 23:49
--- NOTE | 2021-03-05 22:02 | XR ---
EXAMINATION TYPE: XR chest 2V DATE OF EXAM: 03/05/2021 CLINICAL HISTORY: altered mental status. TECHNIQUE: Frontal and lateral view of the chest. COMPARISON: 02/28/2021 FINDINGS: The cardiomediastinal silhouette is within normal limits for size. Pulmonary vasculature i s normal. There is no focal air space opacity. No pleural effusion. No pneumothorax seen. No acute d isplaced osseous fracture. IMPRESSION: No acute cardiopulmonary process.
--- NOTE | 2021-03-05 22:06 | CT ---
EXAMINATION TYPE: CT brain wo con DATE OF EXAM: 03/05/2021 HISTORY: ams. CT DLP: 1086.4 mGycm. Automated Exposure Control for Dose Reduction was Utilized. TECHNIQUE: CT scan of the head is performed without contrast. COMPARISON: 02/28/2021 FINDINGS: There is no acute intracranial hemorrhage, midline shift, or mass effect identified. Generalized volu me loss. Patchy white matter hypodensities likely sequela of chronic microvascular ischemic change. The ventricles, sulci, and cisterns are normal in size and configuration. No extra-axial fluid collection. No depressed calvarial fracture. Visualized sinuses and mastoid air cells are clear. IMPRESSION: No acute intracranial hemorrhage, midline shift, or mass effect.
[2021-03-05 22:16] LABS: Basophils % (A) 0 %; Eosinophils # (A) 0.1 k/uL (0-0.7); Eosinophils % (A) 2 %; HCT 27.6 % (34.0-46.0); Lymphocytes # (A) 1.3 k/uL (1.0-4.8); Lymphocytes % (A) 34 %; MCHC 35.3 g/dL (31.0-37.0); MCV 96.3 fL (80.0-100.0); Mean Platelet Volume 7.3; Monocytes # (A) 0.3 k/uL (0-1.0); Monocytes % (A) 7 %; Neutrophils # (A) 2.2 k/uL (1.3-7.7); Neutrophils % (A) 56 %; Platelet Count 272 k/uL (150-450); RBC 2.86 m/uL (3.80-5.40); RDW 13.6 % (11.5-15.5); WBC 3.9 k/uL (3.8-10.6)
[2021-03-05 22:23] LABS: HGB 9.7 gm/dL (11.4-16.0)
[2021-03-05 22:31] LABS: INR 0.9 (<1.2); Partial Thromboplastin Time 22.8 sec (22.0-30.0); Prothrombin Time 10.2 sec (9.0-12.0)
[2021-03-05 22:36] LABS: Albumin 3.3 g/dL (3.5-5.0); Calcium 9.2 mg/dL (8.4-10.2); Potassium 3.6 mmol/L (3.5-5.1); Total Bilirubin 0.5 mg/dL (0.2-1.3); Total Protein 5.9 g/dL (6.3-8.2)
[2021-03-05] MEDS ORDERED: NALOXONE 0.4 MG/ML 1 ML VIAL IV PRN (23:47)
[2021-03-06 02:23] LABS: Appearance,Urine Clear (Clear); Bacteria,Urine Rare /hpf; Bilirubin,Urine Negative (Negative); Blood,Urine Moderate (Negative); Color,Urine Light Yellow; Glucose,Urine (UA) Negative (Negative); Ketones,Urine Negative (Negative); Leukocyte Esterase,Urine Negative (Negative); Mucus,Urine Rare /hpf; Nitrite,Urine Negative (Negative); Protein,Urine Negative (Negative); RBC,Urine 19 /hpf (0-5); Specific Gravity,Urine 1.013 (1.001-1.035); Squamous Epithelial Cell,Urine 2 /hpf (0-4); Urobilinogen,Urine <2.0 mg/dL (<2.0); WBC,Urine 2 /hpf (0-5)
--- NOTE | 2021-03-06 02:52 | ED ---
Medical Decision Making - Lab Data Result diagrams: 03/05/21 Unknown 03/05/21 Unknown Lab Results 03/05/21 03/05/21 03/05/21 Range/Units Unknown Unknown Unknown WBC 3.9 (3.8-10.6) k/uL RBC 2.86 L (3.80-5.40) m/uL Hgb 9.7 L D (11.4-16.0) gm/dL Hct 27.6 L (34.0-46.0) % MCV 96.3 (80.0-100.0) fL MCH 34.0 (25.0-35.0) pg MCHC 35.3 (31.0-37.0) g/dL RDW 13.6 (11.5-15.5) % Plt Count 272 (150-450) k/uL MPV 7.3 Neutrophils % 56 % Lymphocytes % 34 % Monocytes % 7 % Eosinophils % 2 % Basophils % 0 % Neutrophils # 2.2 (1.3-7.7) k/uL Lymphocytes # 1.3 (1.0-4.8) k/uL Monocytes # 0.3 (0-1.0) k/uL Eosinophils # 0.1 (0-0.7) k/uL Basophils # 0.0 (0-0.2) k/uL PT 10.2 (9.0-12.0) sec INR 0.9 (<1.2) APTT 22.8 (22.0-30.0) sec Sodium 137 (137-145) mmol/L Potassium 3.6 (3.5-5.1) mmol/L Chloride 104 (98-107) mmol/L Carbon Dioxide 25 (22-30) mmol/L Anion Gap 8 mmol/L BUN 16 (7-17) mg/dL Creatinine 1.30 H (0.52-1.04) mg/dL Est GFR (CKD-EPI)AfAm 49 (>60 ml/min/1.73 sqM) Est GFR (CKD-EPI)NonAf 43 (>60 ml/min/1.73 sqM) Glucose 81 (74-99) mg/dL Calcium 9.2 (8.4-10.2) mg/dL Total Bilirubin 0.5 (0.2-1.3) mg/dL AST 21 (14-36) U/L ALT 6 (4-34) U/L Alkaline Phosphatase 83 (38-126) U/L Troponin I (0.000-0.034) ng/mL Total Protein 5.9 L (6.3-8.2) g/dL Albumin 3.3 L (3.5-5.0) g/dL 03/05/21 Range/Units Unknown WBC (3.8-10.6) k/uL RBC (3.80-5.40) m/uL Hgb (11.4-16.0) gm/dL Hct (34.0-46.0) % MCV (80.0-100.0) fL MCH (25.0-35.0) pg MCHC (31.0-37.0) g/dL RDW (11.5-15.5) % Plt Count (150-450) k/uL MPV Neutrophils % % Lymphocytes % % Monocytes % % Eosinophils % % Basophils % % Neutrophils # (1.3-7.7) k/uL Lymphocytes # (1.0-4.8) k/uL Monocytes # (0-1.0) k/uL Eosinophils # (0-0.7) k/uL Basophils # (0-0.2) k/uL PT (9.0-12.0) sec INR (<1.2) APTT (22.0-30.0) sec Sodium (137-145) mmol/L Potassium (3.5-5.1) mmol/L Chloride (98-107) mmol/L Carbon Dioxide (22-30) mmol/L Anion Gap mmol/L BUN (7-17) mg/dL Creatinine (0.52-1.04) mg/dL Est GFR (CKD-EPI)AfAm (>60 ml/min/1.73 sqM) Est GFR (CKD-EPI)NonAf (>60 ml/min/1.73 sqM) Glucose (74-99) mg/dL Calcium (8.4-10.2) mg/dL Total Bilirubin (0.2-1.3) mg/dL AST (14-36) U/L ALT (4-34) U/L Alkaline Phosphatase (38-126) U/L Troponin I <0.012 (0.000-0.034) ng/mL Total Protein (6.3-8.2) g/dL Albumin (3.5-5.0) g/dL Disposition Clinical Impression: Altered mental status Disposition: ADMITTED IP TO THIS HOSP Condition: Serious Procedures - Procedures Initial comment: Left external jugular vein IV inserted due to failed left upper arm IV. Skin prepped in sterile fashion. #20g IV inserted. 3 attempts in other sites. Patient tolerated well. - EJ/Peripheral Line No standard instances Consent Obtained: verbal consent Indications: nurses unable to establish peripheral IV Skin Cleansed in Sterile Fashion: Yes Size: 18 Dressing Placed: Tegaderm, tape Patient Tolerated Procedure: well, no complications Additional Comments: Ultrasound guided
[2021-03-06] MEDS: MORPHINE SULFATE 2 MG/ML SYRINGE IVP PRN ×5 (02:57→19:39)
[2021-03-06] MEDS ORDERED: LOPERAMIDE 2 MG CAP PO PRN (08:42)
[2021-03-06] MEDS ORDERED: ALBUTEROL NEBULIZED 2.5 MG/3 ML INHALATION PRN (08:42)
[2021-03-06] MEDS ORDERED: HYDROcodone/APAP 5-325MG 1 EACH TAB PO PRN (08:42)
[2021-03-06] MEDS: MAGNESIUM OXIDE 400 MG TAB PO SCH ×2 (09:35→19:38)
[2021-03-06] MEDS: SODIUM BICARBONATE TAB 650 MG TAB PO SCH ×2 (09:35→19:38)
[2021-03-06] MEDS: DULoxetine HCL 60 MG CAPSULE.DR PO SCH (09:35)
[2021-03-06] MEDS: FOLIC ACID 1 MG TAB PO SCH (09:35)
[2021-03-06] MEDS: DICYCLOMINE 20 MG TAB PO SCH ×3 (09:36→19:39)
[2021-03-06] MEDS: FAMOTIDINE 20 MG TAB PO SCH ×2 (09:36→19:39)
[2021-03-06] MEDS: GABAPENTIN 300 MG CAP PO SCH ×3 (09:36→19:39)
[2021-03-06] MEDS: ALPRAZolam 0.25 MG TAB PO SCH ×2 (09:36→19:38)
[2021-03-06] MEDS: LIPASE PO SCH ×2 (11:40→16:34)
[2021-03-06] MEDS: AMYLASE PO SCH ×2 (11:40→16:34)
[2021-03-06] MEDS: [UNRECOGNIZED DRUG - OTHER] PO SCH ×2 (11:40→16:34)
[2021-03-06] MEDS: PROTEASE PO SCH ×2 (11:40→16:34)
--- NOTE | 2021-03-06 17:06 | P.HPIM ---
History of Present Illness H&P Date: 03/06/21 Chief Complaint: Altered mental status Patient is a 65-year-old female with a known history of CVA/TIA, fibromyalgia, hypertension, COPD, multiple sclerosis, short bowel syndrome with history of right hemicolectomy and small bowel resection, anxiety, bipolar, depression and PTSD and currently with a smoker was brought to the hospital by her son due to confusion. Patient's son is a nurse who spoke to her around 3 PM yesterday afternoon and patient seems to be doing well and answering questions appropriately. When he got out of work at 7 PM he stopped it at home and no ticed that she is confused and talking incoherently. The caregiver who was in the form with her stated that she was confused throughout the conversation. Patient was noticed to have Left arm drift and confused. She was brought to the hospital for evolution. Otherwise no focal weakness. Denied any headache or dizziness or lightheadedness. No numbness or tingling sensation. No cough is from production. No fever no chills. No neck stiffness. Denied any dysuria or hematuria. Denied any recent illnesses. Chest x-ray showed no acute cardiopulmonary process. CT head showed no acute intracranial hemorrhage, midline shift or mass effect. EKG showed sinus bradycardia with heart rate 52 On admission blood pressure was 115/70, pulse 66 respirations 20 afebrile and pulse ox 97% on room air. Laboratory data showed WBC 3.9 hemoglobin 9.7 and platelets 272 Sodium 137 potassium 3.6 BUN 16 and creatinine 1.3 nightly urinalysis showed moderate blood and RBCs no WBCs. Leukocyte esterase negative. TSH 1.73 and [place] virus PCR not detected. Review of Systems Constitutional: Patient denies any fever or chills . No generalized weakness or weight loss. Abdomen: Patient denied nausea vomiting and diarrhea and abdominal pain. Cardiovascular: Patient denies any chest pain or short of breath no palpitations. Respiratory: patient denied any cough is from production. No shortness of breath Neurologic: Patient denied any numbness or tingling headache. Musculoskeletal: Patient denies any complaints of joint swelling or deformity. Right foot pain. Skin: Negative Psychiatric: Negative Endocrine: No heat or cold intolerance. No recent weight gain. Genitourinary: No dysuria or hematuria. All other 14 point ROS negative except the above Past Medical History Past Medical History: Cancer, COPD, CVA/TIA, Fibromyalgia, Hypertension Additional Past Medical History / Comment(s): Lupus, TIA, right hand tendons severed, closed head injury, multiple sclerosis, short bowel syndrome, pancreatic insufficiency, bowel cancer History of Any Multi-Drug Resistant Organisms: C-DIFF Date of last positivie culture/infection: 2014 MDRO Source:: patient Past Surgical History: Appendectomy, Back Surgery, Section, Orthopedic Surgery Additional Past Surgical History / Comment(s): stomach cancer, right hemicolectomy and small bowel resection Past Anesthesia/Blood Transfusion Reactions: No Reported Reaction Past Psychological History: Anxiety, Bipolar, Depression, PTSD Smoking Status: Current every day smoker Past Alcohol Use History: None Reported Past Drug Use History: None Reported - Past Family History Father Additional Family Medical History / Comment(s): Father has history of diabetes and stomach problems. Mother Additional Family Medical History / Comment(s): Mother has history of diabetes, coronary artery disease and COPD. Sister(s) Additional Family Medical History / Comment(s): Patient has sisters all have female problems. She does state there is breast cancer history in her aunt. Son(s) Family Medical History: No Reported History Additional Family Medical History / Comment(s): Patient has one son with no major medical problems. Medications and Allergies Home Medications Medication Instructions Recorded Confirmed Type DULoxetine HCL [Cymbalta] 60 mg PO DAILY 05/24/17 03/08/21 History Folic Acid 1 mg PO DAILY 05/24/17 03/08/21 History Magnesium Oxide [Mag-Ox] 400 mg PO BID 05/24/17 03/08/21 History traZODone HCL 150 mg PO HS 02/27/18 03/08/21 History Dicyclomine [Bentyl] 20 mg PO TID 07/10/18 03/08/21 History Albuterol Sulfate [Proair Hfa] 1 puff INHALATION RT-Q4H PRN 10/20/19 03/08/21 History Sodium Bicarbonate Tab 650 mg PO BID 10/20/19 03/08/21 History Famotidine [Pepcid] 20 mg PO BID 11/06/19 03/08/21 History Lipase/Protease/Amylase [Zenpep Dr 80,000 units PO AC-TID 11/06/19 03/08/21 History 40,000 Unit Capsule] Loperamide HCl [Imodium A-D] 2 mg PO TID PRN 11/06/19 03/08/21 History QUEtiapine [SEROquel] 50 mg PO HS 06/22/20 03/08/21 History Ergocalciferol (Vitamin D2) 1,250 mcg PO Q14D 01/31/21 03/08/21 History [Drisdol (50,000 Iu)] carisoprodoL [Soma] 350 mg PO HS 01/31/21 03/08/21 History Triamcinolone 0.1% Cream [Kenalog 1 applic TOPICAL BID #30 gram 02/12/21 03/08/21 Rx 0.1% Cream] Gabapentin [Neurontin] 300 mg PO TID #9 cap 03/03/21 03/08/21 Rx ALPRAZolam [Xanax] 0.25 mg PO BID #6 tab 03/08/21 03/08/21 Rx HYDROcodone/APAP 5-325MG [[place] 0.5 tab PO BID PRN #6 tab 03/08/21 03/08/21 Rx 5-325] Allergies Allergy/AdvReac Type Severity Reaction Status Date / Time alcohol Allergy Vomiting Verified 03/08/21 23:10 aspirin Allergy Unknown Verified 03/08/21 23:10 divalproex sodium Allergy Unknown Verified 03/08/21 23:10 [From Depakote] erythromycin base Allergy Unknown Verified 03/08/21 23:10 ketorolac [From Toradol] Allergy Unknown Verified 03/08/21 23:10 Penicillins Allergy Unknown Verified 03/08/21 23:10 shellfish derived [Shellfish] Allergy Unknown Verified 03/08/21 23:10 strawberry Allergy Unknown Verified 03/08/21 23:10 Sulfa (Sulfonamide Allergy Unknown Verified 03/08/21 23:10 Antibiotics) Physical Exam Vitals: Vital Signs Temp Pulse Pulse Resp BP BP Pulse Ox 03/06/21 07:00 98 F 69 16 179/82 98 03/06/21 06:00 56 L 18 96 03/06/21 04:00 53 L 16 146/86 97 03/06/21 02:00 57 L 15 146/86 98 03/06/21 00:00 54 L 16 153/78 97 03/05/21 23:32 54 L 16 153/78 95 03/05/21 23:27 57 L 09/10/21 20:52 56 L 03/05/21 19:58 97.9 F 66 20 115/70 97 Intake and Output 03/05/21 03/06/21 03/06/21 22:59 06:59 14:59 Other: Voiding Method Toilet Weight 54.431 kg 54.431 kg PHYSICAL EXAMINATION: Patient is lying in the bed comfortably, no acute distress, awake alert and oriented.. HEENT: Normocephalic. Neck is supple. Pupils reactive. Nostrils clear. Oral cavity is moist. Neck reveals no JVD, carotid bruits, or thyromegaly. CHEST EXAMINATION: Trachea is central. Symmetrical expansion. Lung [place] clear to auscultation and percussion. CARDIAC: Normal S1, S2 with no gallops. No murmurs ABDOMEN: Soft. Bowel sounds normal. No organomegaly. No abdominal bruits. Extremities: Lower activity venostasis changes and 1+ pedal edema.. No clubbing or cyanosis Neurologically awake, alert, oriented x2-3 with well-coordinated movements. No gross focal deficits noted Skin: No rash or skin lesions. Psychiatric: Coperative. Could not be assessed completely Musculoskeletal: No joint swelling or deformity. Results CBC & Chem 7: 03/08/21 05:27 03/08/21 05:27 Labs: Abnormal Lab Results - Last 24 Hours (Table) 03/05/21 03/05/21 03/06/21 Range/Units Unknown Unknown 01:38 RBC 2.86 L (3.80-5.40) m/uL Hgb 9.7 L D (11.4-16.0) gm/dL Hct 27.6 L (34.0-46.0) % Creatinine 1.30 H (0.52-1.04) mg/dL Total Protein 5.9 L (6.3-8.2) g/dL Albumin 3.3 L (3.5-5.0) g/dL Urine Blood Moderate H (Negative) Urine RBC 19 H (0-5) /hpf Urine Bacteria Rare H (None) /hpf Urine Mucus Rare H (None) /hpf Thrombosis Risk Factor Assmnt - DVT/VTE Prophylaxis DVT/VTE Prophylaxis: Pharmacologic Prophylaxis ordered - Choose All That Apply Each Risk Factor Represents 2 Points: Age 61-74 years Thrombosis Risk Factor Assessment Total Risk Factor Score: 2 Thrombosis Risk Factor Assessment Level: Low Risk Assessment and Plan Assessment: Altered mental status with slurred speech. possible TIA vs toxic encephalopathy. resolved. Ruled out acute CVA. CT head is negative. Mild acute kidney injury with creatinine level I.3 on admission Normocytic anemia with hemoglobin 9.7 Hypertension COPD not in exacerbation Fibromyalgia History of multiple sclerosis Small bowel resection and right hemicolectomy/short bowel syndrome Anxiety/depression/bipolar and PTSD Currently everyday smoker DVT prophylaxis with heparin subcu Plan: Patient be continued on telemetry monitoring. Admit to hospital due to confusio n and slurred speech. Symptoms completely resolved now. Continue with home medications and avoid narcotic pain medications. Follow-up renal function. Neurology was consulted for evaluation. Right foot x-ray to rule out any fracture. We will check TSH, B12, folate and A1c levels. Continue to follow closely. Time with Patient: Greater than 30
[2021-03-06 17:55] LABS: % Iron Saturation 11.9 (12.00-45.00)
--- NOTE | 2021-03-06 18:03 | XR ---
EXAMINATION TYPE: XR foot complete RT DATE OF EXAM: 03/06/2021 CLINICAL HISTORY: Swelling and pain after fall TECHNIQUE: Frontal, lateral, and oblique images of the right foot are obtained. COMPARISON: None FINDINGS: No acute fracture or dislocation. Mild diffuse soft tissue swelling of the foot. Mild degenerative ch anges of the midfoot. IMPRESSION: Mild diffuse soft tissue swelling without acute fracture or dislocation.
[2021-03-06] MEDS: traZODone HCL 50 MG TAB PO SCH (19:38)
[2021-03-06] MEDS: QUEtiapine 50 MG TAB PO SCH (19:39)
[2021-03-06] MEDS: HEPARIN SODIUM,PORCINE/PF 5,000 UNIT/0.5 ML SYRINGE SQ SCH (19:41)
--- NOTE | 2021-03-06 21:12 | P.CNNES ---
History of Present Illness Consult date: 03/06/21 Reason for Consult: mental status changes History of Present Illness: The patient is a 65-year-old female who is seen in neurologic consultation on March 06, 2021, via teleneurology. Patient is being seen because of mental status changes. The patient herself is a very poor historian. She reports falling approximately 3 weeks ago. She is says that she landed on her back. She says that she was brought into the hospital and spent 3 days in the hospital. She was subsequently discharged home however reportedly was unable to tolerate being at home because she was unable to stand to take care of her personal needs such as cooking and laundry. She said she was brought back into the hospital and was again discharged. Patient reports on this occasion she was confused, per her son. Patient states that when she fell on her back she did actually hit her head. She reports that there was loss of consciousness. She says that since that time she has been "seeing stars". She also says she has been unable to take care of herself at home because of confusion and difficulty with memory. Patient reports a headache. Workup in the emergency department with a CT scan of the brain was negative for acute hemorrhage and infarct. According to the emergency department note, the patient's son brought her in because of confusion and slurred speech. Past Medical History Past Medical History: Cancer, COPD, CVA/TIA, Fibromyalgia, Hypertension Additional Past Medical History / Comment(s): Lupus, TIA, right hand tendons severed, closed head injury, multiple sclerosis, short bowel syndrome, pancreatic insufficiency, bowel cancer History of Any Multi-Drug Resistant Organisms: C-DIFF Date of last positivie culture/infection: 2014 MDRO Source:: patient Past Surgical History: Appendectomy, Back Surgery, Section, Orthopedic Surgery Additional Past Surgical History / Comment(s): stomach cancer, right hemicolectomy and small bowel resection Past Anesthesia/Blood Transfusion Reactions: No Reported Reaction Past Psychological History: Anxiety, Bipolar, Depression, PTSD Smoking Status: Current every day smoker Past Alcohol Use History: None Reported Past Drug Use History: None Reported - Past Family History Father Additional Family Medical History / Comment(s): Father has history of diabetes and stomach problems. Mother Additional Family Medical History / Comment(s): Mother has history of diabetes, coronary artery disease and COPD. Sister(s) Additional Family Medical History / Comment(s): Patient has sisters all have female problems. She does state there is breast cancer history in her aunt. Son(s) Family Medical History: No Reported History Additional Family Medical History / Comment(s): Patient has one son with no major medical problems. Medications and Allergies Home Medications Medication Instructions Recorded Confirmed Type DULoxetine HCL [Cymbalta] 60 mg PO DAILY 05/24/17 03/05/21 History Folic Acid 1 mg PO DAILY 05/24/17 03/05/21 History Magnesium Oxide [Mag-Ox] 400 mg PO BID 05/24/17 03/05/21 History traZODone HCL 150 mg PO HS 02/27/18 03/05/21 History Dicyclomine [Bentyl] 20 mg PO TID 07/10/18 03/05/21 History Albuterol Sulfate [Proair Hfa] 1 puff INHALATION RT-Q4H PRN 10/20/19 03/05/21 History Sodium Bicarbonate Tab 650 mg PO BID 10/20/19 03/05/21 History Famotidine [Pepcid] 20 mg PO BID 11/06/19 03/05/21 History Lipase/Protease/Amylase [Zenpep Dr 80,000 units PO AC-TID 11/06/19 03/05/21 History 40,000 Unit Capsule] Loperamide HCl [Imodium A-D] 2 mg PO TID PRN 11/06/19 03/05/21 History QUEtiapine [SEROquel] 50 mg PO HS 06/22/20 03/05/21 History Ergocalciferol (Vitamin D2) 1,250 mcg PO Q14D 01/31/21 03/05/21 History [Drisdol (50,000 Iu)] carisoprodoL [Soma] 350 mg PO HS 01/31/21 03/05/21 History Triamcinolone 0.1% Cream [Kenalog 1 applic TOPICAL BID #30 gram 02/12/21 03/05/21 Rx 0.1% Cream] ALPRAZolam [Xanax] 0.5 mg PO BID #6 tab 03/03/21 03/05/21 Rx Gabapentin [Neurontin] 300 mg PO TID #9 cap 03/03/21 03/05/21 Rx HYDROcodone/APAP 5-325MG [[place] 1 tab PO BID PRN #6 tab 03/03/21 03/05/21 Rx 5-325] Allergies Allergy/AdvReac Type Severity Reaction Status Date / Time alcohol Allergy Vomiting Verified 03/05/21 20:03 aspirin Allergy Unknown Verified 03/05/21 20:03 divalproex sodium Allergy Unknown Verified 03/05/21 20:03 [From Depakote] erythromycin base Allergy Unknown Verified 03/05/21 20:03 ketorolac [From Toradol] Allergy Unknown Verified 03/05/21 20:03 Penicillins Allergy Unknown Verified 03/05/21 20:03 shellfish derived [Shellfish] Allergy Unknown Verified 03/05/21 20:03 strawberry Allergy Unknown Verified 03/05/21 20:03 Sulfa (Sulfonamide Allergy Unknown Verified 03/05/21 20:03 Antibiotics) Physical Examination - Vital Signs Vital Signs: Vital Signs Temp Pulse Pulse Resp BP BP Pulse Ox 03/06/21 13:21 98.9 F 63 16 161/71 93 L 03/06/21 07:00 98 F 69 16 179/82 98 03/06/21 06:00 56 L 18 96 03/06/21 04:00 53 L 16 146/86 97 03/06/21 02:00 57 L 15 146/86 98 03/06/21 00:00 54 L 16 153/78 97 03/05/21 23:32 54 L 16 153/78 95 03/05/21 23:27 57 L 03/05/21 20:52 56 L 03/05/21 19:58 97.9 F 66 20 115/70 97 Intake and Output 03/06/21 03/06/21 03/06/21 06:59 14:59 22:59 Other: Voiding Method Toilet # Voids 1 Weight 54.431 kg Gen.: The patient is reclining in the bed. She is in no acute distress. She is quite thin. HEENT: Head is atraumatic, normocephalic. Fundus not visualized. There is no scleral icterus. Mucous members are moist. Neck: Supple Heart: Regular rate and rhythm Extremities: There is noted to be bilateral edema, right greater than left. There is also discoloration of the distal lower extremities. Pulses are present. Neurological examination Mental status: The patient is awake, alert and oriented 3. She is able to report the current month, landing worker and significance of today's date. She also was able to tell me that her doctor diagnosed her with "erythema nodosum". She wonders about the prognosis for this and what the treatment is. The patient is able to accurately repeat phrases. There is no anomia. There is no right left confusion. Speech is clear. Cranial nerves: Pupils are equal at 3 mm and reactive. Visual [place] are full to confrontation. Extraocular movements are intact. There is no nystagmus. Facial sensation is intact. There is no facial asymmetry. Hearing is grossly intact. Uvula and palate are midline. Shoulder shrug is symmetric. Tongue protrudes midline. Motor: Bilateral upper extremity strength is 5/5. Right hip flexor 3/5. Right quadriceps 3-/5. Left quadriceps 4/5. Bilateral hamstrings 4+/5. Sensation: The patient reports subjective decreased touch to the right lower extremity. Coordination: Finger to nose and rapid alternating movements are intact. Deep tendon reflexes: Not assessed Results - Laboratory Findings CBC and BMP: 03/05/21 Unknown 03/05/21 Unknown Abnormal Lab Findings: Abnormal Labs 03/05/21 03/05/21 03/06/21 Unknown Unknown 01:38 RBC 2.86 L Hgb 9.7 L D Hct 27.6 L Creatinine 1.30 H Total Protein 5.9 L Albumin 3.3 L Urine Blood Moderate H Urine RBC 19 H Urine Bacteria Rare H Urine Mucus Rare H Assessment and Plan Assessment: 1. Reported confusion and slurred speech-possible transient ischemic attack. CT scan of the brain is negative for acute infarct 2. Reported fall with hit to head and continued confusion yet the patient is awake, alert and oriented 3 she is even able to tell me the name of her most recent a diagnosis, "erythema nodosum". I suspect confusion/mental status changes are not as severe as reported 3. Plan: 1. CT angiogram of the head and neck looking for signs of stenosis which could contribute to transient ischemic attack 2. MRI of brain looking for any subtle signs of cerebral ischemia and/or possible contusion secondary to reported head injury Time with Patient: Greater than 30 (spent 40 minutes with the patient via teleneurology)
[2021-03-06] MEDS: carisoprodoL 350 MG TAB PO SCH (21:21)
[2021-03-06 21:36] LABS: Hemoglobin A1C 4.8 % (4.0-6.0)
[2021-03-07] MEDS: MORPHINE SULFATE 2 MG/ML SYRINGE IVP PRN ×4 (04:21→18:25)
[2021-03-07 07:06] VITALS: RESP 16
[2021-03-07] MEDS: AMYLASE PO SCH ×3 (07:53→15:29)
[2021-03-07] MEDS: [UNRECOGNIZED DRUG - OTHER] PO SCH ×3 (07:53→15:29)
[2021-03-07] MEDS: PROTEASE PO SCH ×3 (07:53→15:29)
[2021-03-07] MEDS: LIPASE PO SCH ×3 (07:53→15:29)
[2021-03-07 08:25] LABS: African American GFR (CKD) 57 (>60 ml/min/1.73 sqM); Anion Gap 8 mmol/L; Blood Urea Nitrogen 19 mg/dL (7-17); Calcium 8.8 mg/dL (8.4-10.2); Carbon Dioxide 23 mmol/L (22-30); Chloride 103 mmol/L (98-107); Glucose 96 mg/dL (74-99); Non-African American GFR(CKD) 49 (>60 ml/min/1.73 sqM); Potassium 4.1 mmol/L (3.5-5.1); Sodium 134 mmol/L (137-145)
[2021-03-07] MEDS: HEPARIN SODIUM,PORCINE/PF 5,000 UNIT/0.5 ML SYRINGE SQ SCH ×2 (08:53→20:50)
[2021-03-07] MEDS: ALPRAZolam 0.25 MG TAB PO SCH ×2 (08:54→20:51)
[2021-03-07] MEDS: FAMOTIDINE 20 MG TAB PO SCH (08:54)
[2021-03-07] MEDS: DICYCLOMINE 20 MG TAB PO SCH ×3 (08:54→20:51)
[2021-03-07] MEDS: FOLIC ACID 1 MG TAB PO SCH (08:54)
[2021-03-07] MEDS: MAGNESIUM OXIDE 400 MG TAB PO SCH ×2 (08:54→20:51)
[2021-03-07] MEDS: SODIUM BICARBONATE TAB 650 MG TAB PO SCH ×2 (08:54→20:51)
[2021-03-07] MEDS: DULoxetine HCL 60 MG CAPSULE.DR PO SCH (08:54)
[2021-03-07] MEDS: GABAPENTIN 300 MG CAP PO SCH ×3 (08:55→20:51)
[2021-03-07 12:26] LABS: Basophils # (A) 0.02 X 10*3/uL (0.00-0.10); Basophils % (A) 0.5 %; Eosinophils # (A) 0.03 X 10*3/uL (0.04-0.35); Eosinophils % (A) 0.8 %; HCT 25.4 % (37.2-46.3); HGB 8.1 g/dL (12.0-15.0); Lymphocytes # (A) 1.37 X 10*3/uL (0.90-5.00); Lymphocytes % (A) 35.7 %; MCH 31.8 pg (27.0-32.0); MCHC 31.9 g/dL (32.0-37.0); MCV 99.6 fL (80.0-97.0); Mean Platelet Volume 9.1 fL (9.5-12.2); Monocytes # (A) 0.38 X 10*3/uL (0.20-1.00); Monocytes % (A) 9.9 %; Neutrophils # (A) 2.03 X 10*3/uL (1.80-7.70); Neutrophils % (A) 52.8 %; Platelet Count 246 X 10*3/uL (140-440); RBC 2.55 X 10*6/uL (4.10-5.20); RDW 13.5 % (11.5-14.5); WBC 3.84 X 10*3/uL (4.50-10.00)
--- NOTE | 2021-03-07 14:17 | CT ---
EXAMINATION TYPE: CT angio head neck DATE OF EXAM: 03/07/2021 HISTORY: pos. CVA COMPARISON: Correlation made with CT scan of the head from 03/05/2021. CT DLP: 207.8 mGycm. Automated Exposure Control for Dose Reduction was Utilized. TECHNIQUE: CTA scan of the neck is performed with IV Contrast, patient injected with 65 mL of Isovue 370, axial images are obtained, coronal and sagittal reformatted images are reviewed. 3D reconstruct ed images are created on an independent workstation and reviewed. FINDINGS: Carotid/Vascular Structures: There is no evidence of carotid artery stenosis, dissection, or aneurysm . There is mild stenosis in the intracranial portion of the carotid artery. The intracerebral arteries including the intracerebral arteries, middle cerebral arteries, and asphalt distributor tender ior cerebral arteries are patent. No significant stenosis or aneurysm seen associated with the vertebral and basilar artery. There is no evidence of venous thrombosis. Impression: No significant carotid artery stenosis. No evidence of thrombosis of the intracerebral vessels. NASCET criteria was used in interpretation of this exam?.
--- NOTE | 2021-03-07 14:21 | MR ---
EXAMINATION TYPE: MR brain wo con DATE OF EXAM: 03/07/2021 COMPARISON: CTA head same day and CT brain 03/05/2021 HISTORY: Altered mental status. Standard multiplanar, multisequence MRI departmental protocol Multiplanar, multisequence images of the head/brain were acquired without contrast. Diffusion weighte d imaging was performed. FINDINGS: No definite areas of abnormal restricted diffusion to suggest acute ischemia within the brain. Moderate burden of confluent increased FLAIR/T2 signal within the periventricular white matter and a dditional moderate burden of scattered multifocal areas of increased FLAIR/T2 signal within the bilat eral cerebral subcortical white matter, likely chronic small vessel ischemic changes. Moderate diffuse cerebral atrophy. Midline sagittal structures appear grossly unremarkable. No hydroc ephalus. Craniovertebral junction appears normal. No extra-axial fluid collections. No acute intracra nial hemorrhage, mass, mass effect, or infarction. Nonspecific FLAIR/T2 well-circumscribed hyperintensities within the midline nasopharynx, which may re present Tornwaldt cyst or mucous retention cysts. Visualized paranasal sinuses appear clear. Trace fl uid within the bilateral mastoid air cells, left greater than right. Bilateral globes appear unremark able. IMPRESSION: 1. No acute intracranial process. 2. Moderate diffuse cerebral atrophy and moderate burden of chronic small vessel ischemic white matte r changes.
[2021-03-07] MEDS: carisoprodoL 350 MG TAB PO SCH (20:50)
[2021-03-07] MEDS: QUEtiapine 50 MG TAB PO SCH (20:51)
[2021-03-07] MEDS: traZODone HCL 50 MG TAB PO SCH (20:51)
--- NOTE | 2021-03-08 00:01 | P.PN ---
Subjective Progress Note Date: 03/07/21 Patient is a 65-year-old female with a known history of CVA/TIA, fibromyalgia, hypertension, COPD, multiple sclerosis, short bowel syndrome with history of right hemicolectomy and small bowel resection, anxiety, bipolar, depression and PTSD and currently with a smoker was brought to the hospital by her son due to confusion. Patient's son is a nurse who spoke to her around 3 PM yesterday afternoon and patient seems to be doing well and answering questions appropriately. When he got out of work at 7 PM he stopped it at home and noticed that she is confused and talking incoherently. The caregiver who was in the form with her stated that she was confused throughout the conversation. Patient was noticed to have Left arm drift and confused. She was brought to the hospital for evolution. Otherwise no focal weakness. Denied any headache or dizziness or lightheadedness. No numbness or tingling sensation. No cough is from production. No fever no chills. No neck stiffness. Denied any dysuria or hematuria. Denied any recent illnesses. Chest x-ray showed no acute cardiopulmonary process. CT head showed no acute intracranial hemorrhage, midline shift or mass effect. EKG showed sinus bradycardia with heart rate 52 On admission blood pressure was 115/70, pulse 66 respirations 20 afebrile and pulse ox 97% on room air. Laboratory data showed WBC 3.9 hemoglobin 9.7 and platelets 272 Sodium 137 potassium 3.6 BUN 16 and creatinine 1.3 nightly urinalysis showed moderate blood and RBCs no WBCs. Leukocyte esterase negative. TSH 1.73 and [place] virus PCR not detected. 03/07/2021 Patient is currently lying in the bed comfortably. Awake alert and oriented x3. No complaints of chest pain or shortness breath. Right foot x-ray showed soft tissue swelling and no fractures noted. Patient is scheduled for MRI brain and CT angiogram of the head and neck. Patient denied any complaints of headache. No nausea vomiting or diarrhea. Laboratory showed WBC 3.8, hemoglobin down to 8.1 and platelets 246 Sodium 134 and potassium 4.1 and chloride 103 BUN 19 and creatinine 1.15 TSH 1.730, neurology is on board. Current medications reviewed. Objective - Vital Signs Vital signs: Vital Signs Temp 99.4 F 03/07/21 07:00 Pulse 59 L 03/07/21 07:00 Resp 16 03/07/21 08:00 BP 167/74 03/07/21 07:00 Pulse Ox 94 L 03/07/21 07:00 Intake & Output 03/06/21 03/07/21 03/07/21 18:59 06:59 18:59 Intake Total 222 237 Balance 222 237 Intake: Oral 222 237 Other: Voiding Method Toilet Toilet Toilet # Voids 1 2 - Exam PHYSICAL EXAMINATION: Patient is lying in the bed comfortably, no acute distress, awake alert and oriented.. HEENT: Normocephalic. Neck is supple. Pupils reactive. Nostrils clear. Oral cavity is moist. Neck reveals no JVD, carotid bruits, or thyromegaly. CHEST EXAMINATION: Trachea is central. Symmetrical expansion. Lung [place] clear to auscultation and percussion. CARDIAC: Normal S1, S2 with no gallops. No murmurs ABDOMEN: Soft. Bowel sounds normal. No organomegaly. No abdominal bruits. Extremities: Lower activity venostasis changes and 1+ pedal edema.. No clubbing or cyanosis Neurologically awake, alert, oriented x2-3 with well-coordinated movements. No gross focal deficits noted Skin: No rash or skin lesions. Psychiatric: Coperative. Could not be assessed completely Musculoskeletal: No joint swelling or deformity. - Labs CBC & Chem 7: 03/07/21 06:29 03/07/21 06:29 Labs: Abnormal Lab Results - Last 24 Hours (Table) 03/06/21 03/07/21 Range/Units 13:20 06:29 Sodium 134 L (137-145) mmol/L BUN 19 H (7-17) mg/dL Creatinine 1.15 H (0.52-1.04) mg/dL Iron 32 L (50-170) ug/dL % Saturation 11.90 L (12.00-45.00) Assessment and Plan Assessment: Altered mental status with slurred speech. possible TIA. resolved. Ruled out acute CVA. CT head is negative. Mild acute kidney injury with creatinine level I.3 on admission Iron deficiency anemia with hemoglobin 9.7--8.1 Hypertension COPD not in exacerbation Fibromyalgia History of multiple sclerosis Small bowel resection and right hemicolectomy/short bowel syndrome Anxiety/depression/bipolar and PTSD Currently everyday smoker DVT prophylaxis with heparin subcu Plan: Patient be continued on telemetry monitoring. Admit to hospital due to confusion and slurred speech. Symptoms completely resolved now. Continue with home medications and avoid narcotic pain medications. Follow-up renal function. Neurology was consulted for evaluation. Right foot x-ray to ruled out any fracture. We will check TSH, B12, folate and A1c levels. MRI of the brain done CT angiogram of the head and neck to be done today. Continue to follow closely. Time with Patient: Greater than 30
[2021-03-08] MEDS: MORPHINE SULFATE 2 MG/ML SYRINGE IVP PRN ×3 (00:50→09:22)
[2021-03-08] MEDS: AMYLASE PO SCH (06:57)
[2021-03-08] MEDS: PROTEASE PO SCH (06:57)
[2021-03-08] MEDS: LIPASE PO SCH (06:57)
[2021-03-08] MEDS: [UNRECOGNIZED DRUG - OTHER] PO SCH (06:57)
[2021-03-08] MEDS: GABAPENTIN 300 MG CAP PO SCH (07:02)
[2021-03-08] MEDS: SODIUM BICARBONATE TAB 650 MG TAB PO SCH (07:02)
[2021-03-08] MEDS: FOLIC ACID 1 MG TAB PO SCH (07:02)
[2021-03-08] MEDS: ALPRAZolam 0.25 MG TAB PO SCH (07:02)
[2021-03-08] MEDS: HEPARIN SODIUM,PORCINE/PF 5,000 UNIT/0.5 ML SYRINGE SQ SCH (07:02)
[2021-03-08] MEDS: DICYCLOMINE 20 MG TAB PO SCH (07:02)
[2021-03-08] MEDS: MAGNESIUM OXIDE 400 MG TAB PO SCH (07:02)
[2021-03-08] MEDS: DULoxetine HCL 60 MG CAPSULE.DR PO SCH (07:02)
[2021-03-08 07:51] VITALS: BP 153/64; PULSE 58; TEMP 98.7
--- NOTE | 2021-03-08 08:54 | P.DS ---
Providers Date of admission: 03/06/21 00:28 Expected date of discharge: 03/08/21 Attending physician: Meseret Haq Consults: 03/05/21 23:47 Consult Physician Routine Consulting Provider: Jennifer Dodson Consult Reason/Comments: Altered mental status Do you want consulting provider notified?: Yes Primary care physician: Meseret Haq Hospital Course: Patient is a 65-year-old female with a known history of CVA/TIA, fibromyalgia, hypertension, COPD, multiple sclerosis, short bowel syndrome with history of right hemicolectomy and small bowel resection, anxiety, bipolar, depression and PTSD and currently with a smoker was brought to the hospital by her son due to confusion. Patient's son is a nurse who spoke to her around 3 PM yesterday afternoon and patient seems to be doing well and answering questions appropriately. When he got out of work at 7 PM he stopped it at home and noticed that she is confused and talking incoherently. The caregiver who was in the form with her stated that she was confused throughout the conversation. Patient was noticed to have Left arm drift and confused. She was brought to the hospital for evolution. Otherwise no focal weakness. Denied any headache or dizziness or lightheadedness. No numbness or tingling sensation. No cough is from production. No fever no chills. No neck stiffness. Denied any dysuria or hematuria. Denied any recent illnesses. Chest x-ray showed no acute cardiopulmonary process. CT head showed no acute intracranial hemorrhage, midline shift or mass effect. EKG showed sinus bradycardia with heart rate 52 On admission blood pressure was 115/70, pulse 66 respirations 20 afebrile and pulse ox 97% on room air. Laboratory data showed WBC 3.9 hemoglobin 9.7 and platelets 272 Sodium 137 potassium 3.6 BUN 16 and creatinine 1.3 nightly urinalysis showed moderate blood and RBCs no WBCs. Leukocyte esterase negative. TSH 1.73 and [place] virus PCR not detected. 03/07/2021 Patient is currently lying in the bed comfortably. Awake alert and oriented x3. No complaints of chest pain or shortness breath. Right foot x-ray showed soft tissue swelling and no fractures noted. Patient is scheduled for MRI brain and CT angiogram of the head and neck. Patient denied any complaints of headache. No nausea vomiting or diarrhea. Laboratory showed WBC 3.8, hemoglobin down to 8.1 and platelets 246 Sodium 134 and potassium 4.1 and chloride 103 BUN 19 and creatinine 1.15 TSH 1.730, neurology is on board. 03/08: Patient has been afebrile, heart rate 58, blood pressure 153/64, pulse ox 92% on room air. Patient is receiving Ferrlecit for hemoglobin of 8.1. Iron level 32, TIBC 269, iron saturation 11.9 A1c was 4.8. The patient denies any new complaints. Her mental status is at her baseline as is oriented 3. A ccording to her nurse, patient has been ambulating to the bathroom and has no difficulty with balance or strength. She is utilizing walker. We'll add in consult with PT and OT and if patient is stable, discharged home with [facility]. DISCHARGE DIAGNOSES Metabolic encephalopathy with slurred speech. possible TIA. resolved. Ruled out acute CVA. Mild acute kidney injury with creatinine level I.3 on admission Iron deficiency anemia with hemoglobin 9.7--8.1, anemia chronic disease Hypertension COPD not in exacerbation Fibromyalgia History of multiple sclerosis Small bowel resection and right hemicolectomy/short bowel syndrome Generalized anxiety disorder, recurrent depression, bipolar and PTSD Currently everyday smoker DISCHARGE PLAN Home with [facility] Impression and plan of care have been directed as dictated by the signing physician. Annalisa Delcid nurse practitioner acting as scribe for signing physician. Patient Condition at Discharge: Good Plan - Discharge Summary New Discharge Prescriptions: Continue Magnesium Oxide [Mag-Ox] 400 mg PO BID Folic Acid 1 mg PO DAILY DULoxetine HCL [Cymbalta] 60 mg PO DAILY traZODone HCL 150 mg PO HS Dicyclomine [Bentyl] 20 mg PO TID Sodium Bicarbonate Tab 650 mg PO BID Albuterol Sulfate [Proair Hfa] 1 puff INHALATION RT-Q4H PRN PRN Reason: Shortness Of Breath Lipase/Protease/Amylase [Zenpep Dr 40,000 Unit Capsule] 80,000 units PO AC- TID Famotidine [Pepcid] 20 mg PO BID Loperamide HCl [Imodium A-D] 2 mg PO TID PRN PRN Reason: Diarrhea QUEtiapine [SEROquel] 50 mg PO HS Ergocalciferol (Vitamin D2) [Drisdol (50,000 Iu)] 1,250 mcg PO Q14D Triamcinolone 0.1% Cream [Kenalog 0.1% Cream] 1 applic TOPICAL BID #30 gram Gabapentin [Neurontin] 300 mg PO TID #9 cap carisoprodoL [Soma] 350 mg PO HS Changed HYDROcodone/APAP 5-325MG [[place] 5-325] 0.5 tab PO BID PRN #6 tab PRN Reason: Pain ALPRAZolam [Xanax] 0.25 mg PO BID #6 tab Discharge Medication List DULoxetine HCL [Cymbalta] 60 mg PO DAILY 05/24/17 [History] Folic Acid 1 mg PO DAILY 05/24/17 [History] Magnesium Oxide [Mag-Ox] 400 mg PO BID 05/24/17 [History] traZODone HCL 150 mg PO HS 02/27/18 [History] Dicyclomine [Bentyl] 20 mg PO TID 07/10/18 [History] Albuterol Sulfate [Proair Hfa] 1 puff INHALATION RT-Q4H PRN 10/20/19 [History] Sodium Bicarbonate Tab 650 mg PO BID 10/20/19 [History] Famotidine [Pepcid] 20 mg PO BID 11/06/19 [History] Lipase/Protease/Amylase [Zenpep Dr 40,000 Unit Capsule] 80,000 units PO AC-TID 11/06/19 [History] Loperamide HCl [Imodium A-D] 2 mg PO TID PRN 11/06/19 [History] QUEtiapine [SEROquel] 50 mg PO HS 06/22/20 [History] Ergocalciferol (Vitamin D2) [Drisdol (50,000 Iu)] 1,250 mcg PO Q14D 01/31/21 [History] carisoprodoL [Soma] 350 mg PO HS 01/31/21 [History] Triamcinolone 0.1% Cream [Kenalog 0.1% Cream] 1 applic TOPICAL BID #30 gram 02/12/21 [Rx] Gabapentin [Neurontin] 300 mg PO TID #9 cap 03/03/21 [Rx] ALPRAZolam [Xanax] 0.25 mg PO BID #6 tab 03/08/21 [Rx] HYDROcodone/APAP 5-325MG [[place] 5-325] 0.5 tab PO BID PRN #6 tab 03/08/21 [Rx] Follow up Appointment(s)/Referral(s): Meseret Haq MD [Primary Care Provider] - 1-2 days
[2021-03-08] MEDS ORDERED: SODIUM FERRIC GLUCONAT-SUCROSE 125 MG in SODIUM CHLORIDE 0.9% 100 ML IVPB SCH (09:00)
[2021-03-08] MEDS ORDERED: FAMOTIDINE 20 MG TAB PO SCH (09:00)
[2021-03-08 12:32] LABS: Basophils # (A) 0.02 X 10*3/uL (0.00-0.10); Basophils % (A) 0.5 %; Eosinophils # (A) 0.03 X 10*3/uL (0.04-0.35); Eosinophils % (A) 0.7 %; HCT 25.7 % (37.2-46.3); HGB 8.2 g/dL (12.0-15.0); Lymphocytes # (A) 1.33 X 10*3/uL (0.90-5.00); Lymphocytes % (A) 32.7 %; MCH 31.1 pg (27.0-32.0); MCHC 31.9 g/dL (32.0-37.0); MCV 97.3 fL (80.0-97.0); Mean Platelet Volume 9.5 fL (9.5-12.2); Monocytes # (A) 0.45 X 10*3/uL (0.20-1.00); Monocytes % (A) 11.1 %; Neutrophils # (A) 2.22 X 10*3/uL (1.80-7.70); Neutrophils % (A) 54.5 %; Platelet Count 234 X 10*3/uL (140-440); RBC 2.64 X 10*6/uL (4.10-5.20); RDW 13.2 % (11.5-14.5); WBC 4.07 X 10*3/uL (4.50-10.00)
[2021-03-08 14:52] LABS: African American GFR (CKD) 54.2 (60.0-200.0); BUN/Creat Ratio 15.83 Ratio (12.00-20.00); Calcium 8.7 mg/dL (8.7-10.3); Non-African American GFR(CKD) 46.7 (60.0-200.0); Potassium 4.3 mmol/L (3.5-5.5)
[2021-03-10] MEDS ORDERED: ERGOCALCIFEROL 1,250 MCG (50,000 IU) CAPSULE PO SCH (09:00)
== END 2021-03-08 11:15 | disposition home or self-care (01) ==
LOC: EC 19:41 → 6NMEDSUR 03-06 00:28
PROVIDERS: ADMIT Internal Medicine; ATTEND Internal Medicine
DX: G93.41 Metabolic encephalopathy (principal); D50.9 Iron deficiency anemia, unspecified; Z20.822 Contact with and (suspected) exposure to COVID-19; Z86.73 Personal history of transient ischemic attack (TIA), and cerebral infarction without residual deficits; Z85.028 Personal history of other malignant neoplasm of stomach; N17.9 Acute kidney failure, unspecified; I10 Essential (primary) hypertension; J44.9 Chronic obstructive pulmonary disease, unspecified; M79.7 Fibromyalgia; G35 Multiple sclerosis; F43.10 Post-traumatic stress disorder, unspecified; K91.2 Postsurgical malabsorption, not elsewhere classified; F17.200 Nicotine dependence, unspecified, uncomplicated; F31.9 Bipolar disorder, unspecified; F41.1 Generalized anxiety disorder; Z79.899 Other long term (current) drug therapy; Z82.49 Family history of ischemic heart disease and other diseases of the circulatory system; Z83.3 Family history of diabetes mellitus; Z90.49 Acquired absence of other specified parts of digestive tract; Z91.81 History of falling
CPT/HCPCS: 96376 ×3; 96365; 96372 ×3; 96375; 99285; 36415; 93005; 97161; 97166; 82747; 80053; 80048 ×2; 84443; 82607; 83540; 83550; 84484; 85025 ×3; 85610; 85730; 81001; 83036; 87635; 73630; 71046; 70496; 70450; 70498; 70551; G0378 ×3; J2916; J2270 ×3; Q9967; J1644 ×3

== ENCOUNTER 2021-03-08 22:52 | Observation (INO) | payer MEDICARE, OTHER ==
--- NOTE | 2021-03-08 22:59 | ED ---
Weakness HPI - General Stated complaint: Altered mental status Time Seen by Provider: 03/08/21 22:55 Source: RN notes reviewed, old records reviewed Limitations: no limitations - History of Present Illness Initial comments: This is a 65-year-old female to the emergency department for evaluation of altered mental status. Patient is presenting for recurrent evaluation of multiple mental status with multiple ER visits for same here in the last week. Patient himself is unresponsive here in the emergency department although mildly arousable. Patient presents by EMS history obtained from EMS and patient's chart MD Complaint: generalized weakness, lack of energy, difficulty walking -: minutes(s) Location: generalized Severity: moderate Severity scale (1-10): 5 Quality: tingling Consistency: constant Improves with: none Worsens with: none Context: recent illness, history of similar Associated Symptoms: confusion, nausea/vomiting - Related Data Home Medications Medication Instructions Recorded Confirmed DULoxetine HCL [Cymbalta] 60 mg PO DAILY 05/24/17 03/08/21 Folic Acid 1 mg PO DAILY 05/24/17 03/08/21 Magnesium Oxide [Mag-Ox] 400 mg PO BID 05/24/17 03/08/21 traZODone HCL 150 mg PO HS 02/27/18 03/08/21 Dicyclomine [Bentyl] 20 mg PO TID 07/10/18 03/08/21 Albuterol Sulfate [Proair Hfa] 1 puff INHALATION RT-Q4H PRN 10/20/19 03/08/21 Sodium Bicarbonate Tab 650 mg PO BID 10/20/19 03/08/21 Famotidine [Pepcid] 20 mg PO BID 11/06/19 03/08/21 Lipase/Protease/Amylase [Zenpep Dr 80,000 units PO AC-TID 11/06/19 03/08/21 40,000 Unit Capsule] Loperamide HCl [Imodium A-D] 2 mg PO TID PRN 11/06/19 03/08/21 QUEtiapine [SEROquel] 50 mg PO HS 06/22/20 03/08/21 Ergocalciferol (Vitamin D2) 1,250 mcg PO Q14D 01/31/21 03/08/21 [Drisdol (50,000 Iu)] carisoprodoL [Soma] 350 mg PO HS 01/31/21 03/08/21 Previous Rx's Medication Instructions Recorded Triamcinolone 0.1% Cream [Kenalog 1 applic TOPICAL BID #30 gram 02/12/21 0.1% Cream] Gabapentin [Neurontin] 300 mg PO TID #9 cap 03/03/21 ALPRAZolam [Xanax] 0.25 mg PO BID #6 tab 03/08/21 HYDROcodone/APAP 5-325MG [[place] 0.5 tab PO BID PRN #6 tab 03/08/21 5-325] Allergies Allergy/AdvReac Type Severity Reaction Status Date / Time alcohol Allergy Vomiting Verified 03/08/21 23:10 aspirin Allergy Unknown Verified 03/08/21 23:10 divalproex sodium Allergy Unknown Verified 03/08/21 23:10 [From Depakote] erythromycin base Allergy Unknown Verified 03/08/21 23:10 ketorolac [From Toradol] Allergy Unknown Verified 03/08/21 23:10 Penicillins Allergy Unknown Verified 03/08/21 23:10 shellfish derived [Shellfish] Allergy Unknown Verified 03/08/21 23:10 strawberry Allergy Unknown Verified 03/08/21 23:10 Sulfa (Sulfonamide Allergy Unknown Verified 03/08/21 23:10 Antibiotics) Review of Systems ROS Statement: Those systems with pertinent positive or pertinent negative responses have been documented in the HPI. ROS Other: All systems not noted in ROS Statement are negative. Past Medical History Past Medical History: Cancer, COPD, CVA/TIA, Fibromyalgia, Hypertension Additional Past Medical History / Comment(s): Lupus, TIA, right hand tendons severed, closed head injury, multiple sclerosis, short bowel syndrome, pancreatic insufficiency, bowel cancer History of Any Multi-Drug Resistant Organisms: C-DIFF Date of last positivie culture/infection: 2014 MDRO Source:: patient Past Surgical History: Appendectomy, Back Surgery, Section, Orthopedic Surgery Additional Past Surgical History / Comment(s): stomach cancer, right hemic olectomy and small bowel resection Past Anesthesia/Blood Transfusion Reactions: No Reported Reaction Past Psychological History: Anxiety, Bipolar, Depression, PTSD Smoking Status: Current every day smoker Past Alcohol Use History: None Reported Past Drug Use History: None Reported - Past Family History Father Additional Family Medical History / Comment(s): Father has history of diabetes and stomach problems. Mother Additional Family Medical History / Comment(s): Mother has history of diabetes, coronary artery disease and COPD. Sister(s) Additional Family Medical History / Comment(s): Patient has sisters all have female problems. She does state there is breast cancer history in her aunt. Son(s) Family Medical History: No Reported History Additional Family Medical History / Comment(s): Patient has one son with no major medical problems. General Exam General appearance: alert, in no apparent distress Head exam: Present: atraumatic, normocephalic, normal inspection Eye exam: Present: normal appearance, PERRL, EOMI. Absent: scleral icterus, conjunctival injection, periorbital swelling ENT exam: Present: normal exam, mucous membranes moist Neck exam: Present: normal inspection. Absent: tenderness, meningismus, lymphadenopathy Respiratory exam: Present: normal lung sounds bilaterally. Absent: respiratory distress, wheezes, rales, rhonchi, stridor Cardiovascular Exam: Present: regular rate, normal rhythm, normal heart sounds. Absent: systolic murmur, diastolic murmur, rubs, gallop, clicks GI/Abdominal exam: Present: soft, normal bowel sounds. Absent: distended, tenderness, guarding, rebound, rigid Extremities exam: Present: normal inspection, full ROM, normal capillary refill. Absent: tenderness, pedal edema, joint swelling, calf tenderness Back exam: Present: normal inspection Neurological exam: Present: alert, oriented X3, CN II-XII intact Psychiatric exam: Present: normal affect, normal mood Skin exam: Present: warm, dry, intact, normal color. Absent: rash Course Vital Signs 03/08/21 03/08/21 03/09/21 23:02 23:25 00:04 Temperature 98.0 F Pulse Rate 59 L 49 L 47 L Respiratory 14 18 12 Rate Blood Pressure 86/56 102/60 97/68 O2 Sat by Pulse 94 L 97 97 Oximetry 03/09/21 01:03 Temperature Pulse Rate Respiratory 12 Rate Blood Pressure O2 Sat by Pulse Oximetry - Reevaluation(s) Reevaluation #1: 03/08/21 23:37 Medical record is reviewed Reevaluation #2: 03/09/21 01:12 Patient does respond to Narcan here in the ER Reevaluation #3: 03/09/21 01:12 Patient continues remains somnolent - Consultations Consultation #1: Spoke with Dr. Haq who agree to admit this patient EKG Findings - EKG Comments: EKG Findings:: EKG shows sinus rhythm 61 MO 158 QRS 88 QTc 491 Medical Decision Making - Medical Decision Making 65 female to the ED for weakness decreased level responsiveness at home possible polysubstance abuse accidental, not suicidal or homicidal. Patient did respond to Narcan will admit for monitoring - Lab Data Result diagrams: 03/08/21 23:07 03/08/21 23:07 Lab Results 03/08/21 03/08/21 03/08/21 Range/Units 23:07 23:07 23:07 WBC 4.3 (3.8-10.6) k/uL RBC 2.75 L (3.80-5.40) m/uL Hgb 9.1 L (11.4-16.0) gm/dL Hct 26.2 L (34.0-46.0) % MCV 95.4 (80.0-100.0) fL MCH 33.1 (25.0-35.0) pg MCHC 34.7 (31.0-37.0) g/dL RDW 13.1 (11.5-15.5) % Plt Count 259 (150-450) k/uL MPV 7.3 Neutrophils % 60 % Lymphocytes % 29 % Monocytes % 8 % Eosinophils % 2 % Basophils % 1 % Neutrophils # 2.6 (1.3-7.7) k/uL Lymphocytes # 1.2 (1.0-4.8) k/uL Monocytes # 0.3 (0-1.0) k/uL Eosinophils # 0.1 (0-0.7) k/uL Basophils # 0.0 (0-0.2) k/uL PT 10.4 (9.0-12.0) sec INR 1.0 (<1.2) APTT 28.8 (22.0-30.0) sec Sodium 132 L (137-145) mmol/L Potassium 4.1 (3.5-5.1) mmol/L Chloride 97 L (98-107) mmol/L Carbon Dioxide 26 (22-30) mmol/L Anion Gap 9 mmol/L BUN 22 H (7-17) mg/dL Creatinine 1.33 H (0.52-1.04) mg/dL Est GFR (CKD-EPI)AfAm 48 (>60 ml/min/1.73 sqM) Est GFR (CKD-EPI)NonAf 41 (>60 ml/min/1.73 sqM) Glucose 119 H (74-99) mg/dL Plasma Lactic Acid Cristiano (0.7-2.0) mmol/L Calcium 9.1 (8.4-10.2) mg/dL Phosphorus 3.9 (2.5-4.5) mg/dL Magnesium 2.0 (1.6-2.3) mg/dL Total Bilirubin 0.5 (0.2-1.3) mg/dL AST 18 (14-36) U/L ALT 6 (4-34) U/L Alkaline Phosphatase 77 (38-126) U/L Creatine Kinase 44 (30-135) U/L Troponin I (0.000-0.034) ng/mL NT-Pro-B Natriuret Pep pg/mL Total Protein 5.9 L (6.3-8.2) g/dL Albumin 3.4 L (3.5-5.0) g/dL TSH 9.860 H (0.465-4.680) mIU/L 03/08/21 03/08/21 03/08/21 Range/Units 23:07 23:07 23:07 WBC (3.8-10.6) k/uL RBC (3.80-5.40) m/uL Hgb (11.4-16.0) gm/dL Hct (34.0-46.0) % MCV (80.0-100.0) fL MCH (25.0-35.0) pg MCHC (31.0-37.0) g/dL RDW (11.5-15.5) % Plt Count (150-450) k/uL MPV Neutrophils % % Lymphocytes % % Monocytes % % Eosinophils % % Basophils % % Neutrophils # (1.3-7.7) k/uL Lymphocytes # (1.0-4.8) k/uL Monocytes # (0-1.0) k/uL Eosinophils # (0-0.7) k/uL Basophils # (0-0.2) k/uL PT (9.0-12.0) sec INR (<1.2) APTT (22.0-30.0) sec Sodium (137-145) mmol/L Potassium (3.5-5.1) mmol/L Chloride (98-107) mmol/L Carbon Dioxide (22-30) mmol/L Anion Gap mmol/L BUN (7-17) mg/dL Creatinine (0.52-1.04) mg/dL Est GFR (CKD-EPI)AfAm (>60 ml/min/1.73 sqM) Est GFR (CKD-EPI)NonAf (>60 ml/min/1.73 sqM) Glucose (74-99) mg/dL Plasma Lactic Acid Cristiano 1.0 (0.7-2.0) mmol/L Calcium (8.4-10.2) mg/dL Phosphorus (2.5-4.5) mg/dL Magnesium (1.6-2.3) mg/dL Total Bilirubin (0.2-1.3) mg/dL AST (14-36) U/L ALT (4-34) U/L Alkaline Phosphatase (38-126) U/L Creatine Kinase (30-135) U/L Troponin I <0.012 (0.000-0.034) ng/mL NT-Pro-B Natriuret Pep 1780 pg/mL Total Protein (6.3-8.2) g/dL Albumin (3.5-5.0) g/dL TSH (0.465-4.680) mIU/L Disposition Clinical Impression: Altered mental status, Polysubstance (excluding opioids) dependence Disposition: ADMITTED IP TO THIS HOSP Condition: Good Is patient prescribed a controlled substance at d/c from ED?: No Referrals: Meseret Haq MD [Primary Care Provider] - 1-2 days
[2021-03-08 23:16] LABS: Basophils % (A) 1 %; Eosinophils # (A) 0.1 k/uL (0-0.7); Eosinophils % (A) 2 %; HCT 26.2 % (34.0-46.0); HGB 9.1 gm/dL (11.4-16.0); Lymphocytes # (A) 1.2 k/uL (1.0-4.8); Lymphocytes % (A) 29 %; MCH 33.1 pg (25.0-35.0); MCHC 34.7 g/dL (31.0-37.0); MCV 95.4 fL (80.0-100.0); Mean Platelet Volume 7.3; Monocytes # (A) 0.3 k/uL (0-1.0); Monocytes % (A) 8 %; Neutrophils # (A) 2.6 k/uL (1.3-7.7); Neutrophils % (A) 60 %; Platelet Count 259 k/uL (150-450); RBC 2.75 m/uL (3.80-5.40); RDW 13.1 % (11.5-15.5); WBC 4.3 k/uL (3.8-10.6)
[2021-03-08 23:27] LABS: Albumin 3.4 g/dL (3.5-5.0); Calcium 9.1 mg/dL (8.4-10.2); Partial Thromboplastin Time 28.8 sec (22.0-30.0); Phosphorus 3.9 mg/dL (2.5-4.5); Potassium 4.1 mmol/L (3.5-5.1); Prothrombin Time 10.4 sec (9.0-12.0); Total Bilirubin 0.5 mg/dL (0.2-1.3); Total Protein 5.9 g/dL (6.3-8.2)
[2021-03-09] MEDS ORDERED: NALOXONE 0.4 MG/ML 1 ML VIAL IVP STA (00:49)
[2021-03-09] MEDS: SODIUM CHLORIDE 0.9% 1,000 ML IV STA ×4 (01:03→02:06)
[2021-03-09] MEDS ORDERED: NALOXONE 0.4 MG/ML 1 ML VIAL IV PRN (01:09)
[2021-03-09] MEDS ORDERED: ONDANSETRON 4 MG/2 ML VIAL IVP PRN (01:09)
[2021-03-09] MEDS ORDERED: MORPHINE SULFATE 4 MG/ML SYRINGE IV PRN (01:09)
[2021-03-09 01:15] LABS: Amorphous Sediment,Urine Rare /hpf; Appearance,Urine Clear (Clear); Bilirubin,Urine Negative (Negative); Blood,Urine Large (Negative); Color,Urine Yellow; Glucose,Urine (UA) Negative (Negative); Granular Casts,Urine 1 /lpf (0); Hyaline Casts,Urine 22 /lpf (0-2); Ketones,Urine Negative (Negative); Leukocyte Esterase,Urine Negative (Negative); Mucus,Urine Rare /hpf; Nitrite,Urine Negative (Negative); Protein,Urine 1+ (Negative); RBC,Urine 3 /hpf (0-5); Squamous Epithelial Cell,Urine 2 /hpf (0-4); Urobilinogen,Urine <2.0 mg/dL (<2.0); WBC,Urine 2 /hpf (0-5)
[2021-03-09 01:44] LABS: T4, Free (Free Thyroxine) 1.14 ng/dL (0.78-2.19)
[2021-03-09] MEDS: DEXTROSE 5%-0.45% NACL 1,000 ML IV SCH ×2 (02:57→16:00)
[2021-03-09] MEDS ORDERED: HYDROcodone/APAP 5-325MG 1 EACH TAB PO PRN (07:51)
[2021-03-09] MEDS ORDERED: ALBUTEROL NEBULIZED 2.5 MG/3 ML INHALATION PRN (07:51)
[2021-03-09] MEDS ORDERED: LOPERAMIDE 2 MG CAP PO PRN (07:51)
--- NOTE | 2021-03-09 08:41 | P.HPIM ---
History of Present Illness H&P Date: 03/09/21 HISTORY OF PRESENT ILLNESS: This is a 65-year-old female patient of Dr. Haq with past medical historyof chronic pancreatitis, aplastic anemia, lupus anticoagulant, history of chronic kidney disease stage IIIA, GERD, diverticulitis, recurrent bowel obstruction, major depressive disorder, spondylosis of the lumbar spine, chronic pain in both lower extremities with painful nodules diagnosed with erythema nodosum. Patient has had multiple admissions to the hospital due to mental status changes and falls with loss of consciousness and injuries. On each admission, patient is stabilized and has been deemed safe to return home after evaluation by PT and OT. Patient was discharged yesterday and instructed to take half dose of [place] and half of Xanax. Unfortunately, patient took 2 [place] and went outside to smoke, she ended up falling and her son found her and EMS was contacted. Patient was brought in by EMS to [facility] emergency center due to altered mental status. Patient was unresponsive while in the emergency center although mildly arousable. WBC 4.3, hemoglobin 9.1, platelet count 259. Sodium 132, potassium 4.1, chloride 97, CO2 26, BUN 22 and creatinine 1.33. Blood sugar 119. Magnesium 2.0. Liver function tests were normal. Troponin negative. TSH 9.860 and free T4 normal at 1.14. Urinalysis showed blood large, RBCs 3. Coronavirus not detected. EKG was a sinus rhythm with no acute ST changes. Patient received a dose of Narcan with some improvement of her mental status. Patient is found sleeping, arouses to verbal stimuli. Patient seen in the emergency center waiting for a MedSur bed. REVIEW OF SYSTEMS: Constitutional: No documented fever, no chills, no night sweats. No weight change. No weakness, fatigue or lethargy. No daytime sleepiness. HEENT: No headache. No blurred vision or double vision, no loss of vision. No loss of Hearing, no ringing in the ears, no dizziness. No nasal drainage or congestion. No epistaxis. No sore throat. Lungs: No shortness of breath, occasional cough, no sputum production. No wheezing. Reports dyspnea with activity. Cardiovascular: No chest pain, no lower extremity edema. No palpitations. No paroxysmal nocturnal dyspnea. No orthopnea. No lightheadedness or dizziness. Reports syncopal episodes. Abdominal: Reports abdominal pain. No nausea, vomiting. No diarrhea. No constipation. No bloody or tarry stools reports loss of appetite. Genitourinary: No dysuria, increased frequency, urgency. No urinary retention. Musculoskeletal: No myalgias. positive for muscle weakness, Reports gait dysfunction, no frequent falls. positive fpr back pain. No neck pain. Reports lower leg pain. Integumentary: No wounds, positive for color change to lower extremities and warmth to touch positive for bruising. No change in hair or nails. Neurologic: No aphasia. No facial droop. No change in mentation. No head injury. No headache. No paralysis. No paresthesia. Psychiatric: No depression. No anxiety. No mood swings. Endocrine: No abnormal blood sugars. No weight change. PAST MEDICAL HISTORY: Chronic kidney disease stage IIIa Aplastic anemia. Vitamin D deficiency. Chronic pancreatitis. Lupus anticoagulant. Erythema nodosum. Spondylosis of the lumbar spine. Peripheral neuropathy. Osteoporosis. GERD. Anxiety. Chronic pain syndrome. PAST SURGICAL HISTORY: Multiple small bowel obstruction with exploratory laparotomy and lysis of adhesion Bilateral great toes ingrown toenail 2019 . Neck surgery. . Right hemicolectomy with small bowel resection SOCIAL HISTORY: Patient smokes about half a pack every day since she was 11-year-old, she denies any alcohol ingestion, no drug abuse. FAMILY HISTORY: Father at age of 92 from congestive heart failure and diabetes, mother at age of 90 from diabetes and partial lobectomy, patient has one brother who is alive 6-year-old with throat cancer patient has one sister 69-year-old health issues does not know patient has a son who is 43-year-old and work as a an RN PHYSICAL EXAMINATION: General: 65-year-old female laying down on ER stretcher in no acute distress HEENT: Head is atraumatic, normocephalic, pupils were equal round reactive to light and recommendation, extraocular muscle movement were intact, sclera gila cteric, conjunctivae were pale, mucous membranes of the mouth are somewhat dry. Neck: Supple, no JVP, normal carotid upstroke bilaterally, no lymphadenopathy. Chest: Decreased breath sounds at the bases, few rhonchi, no expiratory wheezes, no chest wall tenderness, no intercostal retractions. Heart: First heart sound is normal, second heart sounds normal Abdomen: Soft, nontender, nondistended, positive bowel sounds. Extremities: 1+ edema lower extremity , right lower extremity is with increased erythema and bruising from the leg all the way down to the feet dorsalis pedis +2 bilaterally, Neurologic examination: Patient is awake alert and oriented X3, cranial nerves II-12 appear grossly intact, muscle power were 5 out of 5 in upper extremities and 5 out of 5 in bilateral lower extremities, deep tendon reflexes normal bilaterally. ASSESSMENT AND PLAN: 1. Syncopal episode and falls secondary to noncompliance with medications. [place], Xanax placed on hold, discontinue Soma, decrease frequency of gabapentin to twice daily. Patient was instructed on last admission to decrease medications to half dose. Patient was previously instructed to stop Soma. Monitor patient's mental status. 2. Erythema nodosum. Arterial Doppler study 3. Chronic kidney disease stage IIIa. Avoid nephrotoxins, monitor the patient CMP, continue sodium bicarbonate 650 mg orally twice every day. 4. History of aplastic anemia seems to be stable at this time patient has been getting iron infusions as an outpatient along with vitamin B12 supplement. 5. GERD. Continue patient on Pepcid 20 mg orally twice every day. 6. 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 Continue loperamide 2 mg orally 3 times every day. Continue with Zenpep twice every day. 7. 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 Continue gabapentin 300 mg orally decrease to 2 times every day, discontinue Soma. Hold [place] 8. Insomnia. Continue patient on Seroquel XR 150 mg orally once every day. 9. vitamin D deficiency. Continue vitamin D2 50,000 units twice a month. 10. Major depressive disorder. Continue patient on Cymbalta 90 mg orally once every day. 11. DVT prophylaxis. Heparin 5000 units subcutaneously every 8 hours. 12. GI prophylaxis. Continue Pepcid 20 mg orally twice every day. 13. Admit to inpatient. Estimate a length of stay 2 midnights. 14. Patient is full code. DISCHARGE PLAN: Home with [facility] Impression and plan of care have been directed as dictated by the signing phys canelo. Annalisa Delcid nurse practitioner acting as scribe for signing physician. Past Medical History Past Medical History: Cancer, COPD, CVA/TIA, Fibromyalgia, Hypertension Additional Past Medical History / Comment(s): Lupus, TIA, right hand tendons severed, closed head injury, multiple sclerosis, short bowel syndrome, pancreatic insufficiency, bowel cancer History of Any Multi-Drug Resistant Organisms: C-DIFF Date of last positivie culture/infection: 2014 MDRO Source:: patient Past Surgical History: Appendectomy, Back Surgery, Section, Orthopedic Surgery Additional Past Surgical History / Comment(s): stomach cancer, right hemicolectomy and small bowel resection Past Anesthesia/Blood Transfusion Reactions: No Reported Reaction Past Psychological History: Anxiety, Bipolar, Depression, PTSD Smoking Status: Current every day smoker Past Alcohol Use History: None Reported Past Drug Use History: None Reported - Past Family History Father Additional Family Medical History / Comment(s): Father has history of diabetes and stomach problems. Mother Additional Family Medical History / Comment(s): Mother has history of diabetes, coronary artery disease and COPD. Sister(s) Additional Family Medical History / Comment(s): Patient has sisters all have fe male problems. She does state there is breast cancer history in her aunt. Son(s) Family Medical History: No Reported History Additional Family Medical History / Comment(s): Patient has one son with no major medical problems. Medications and Allergies Home Medications Medication Instructions Recorded Confirmed Type DULoxetine HCL [Cymbalta] 60 mg PO DAILY 05/24/17 03/08/21 History Folic Acid 1 mg PO DAILY 05/24/17 03/08/21 History Magnesium Oxide [Mag-Ox] 400 mg PO BID 05/24/17 03/08/21 History traZODone HCL 150 mg PO HS 02/27/18 03/08/21 History Dicyclomine [Bentyl] 20 mg PO TID 07/10/18 03/08/21 History Albuterol Sulfate [Proair Hfa] 1 puff INHALATION RT-Q4H PRN 10/20/19 03/08/21 History Sodium Bicarbonate Tab 650 mg PO BID 10/20/19 03/08/21 History Famotidine [Pepcid] 20 mg PO BID 11/06/19 03/08/21 History Lipase/Protease/Amylase [Zenpep Dr 80,000 units PO AC-TID 11/06/19 03/08/21 History 40,000 Unit Capsule] Loperamide HCl [Imodium A-D] 2 mg PO TID PRN 11/06/19 03/08/21 History QUEtiapine [SEROquel] 50 mg PO HS 06/22/20 03/08/21 History Ergocalciferol (Vitamin D2) 1,250 mcg PO Q14D 01/31/21 03/08/21 History [Drisdol (50,000 Iu)] carisoprodoL [Soma] 350 mg PO HS 01/31/21 03/08/21 History Triamcinolone 0.1% Cream [Kenalog 1 applic TOPICAL BID #30 gram 02/12/21 03/08/21 Rx 0.1% Cream] Gabapentin [Neurontin] 300 mg PO TID #9 cap 03/03/21 03/08/21 Rx ALPRAZolam [Xanax] 0.25 mg PO BID #6 tab 03/08/21 03/08/21 Rx HYDROcodone/APAP 5-325MG [[place] 0.5 tab PO BID PRN #6 tab 03/08/21 03/08/21 Rx 5-325] Allergies Allergy/AdvReac Type Severity Reaction Status Date / Time alcohol Allergy Vomiting Verified 03/08/21 23:10 aspirin Allergy Unknown Verified 03/08/21 23:10 divalproex sodium Allergy Unknown Verified 03/08/21 23:10 [From Depakote] erythromycin base Allergy Unknown Verified 03/08/21 23:10 ketorolac [From Toradol] Allergy Unknown Verified 03/08/21 23:10 Penicillins Allergy Unknown Verified 03/08/21 23:10 shellfish derived [Shellfish] Allergy Unknown Verified 03/08/21 23:10 strawberry Allergy Unknown Verified 03/08/21 23:10 Sulfa (Sulfonamide Allergy Unknown Verified 03/08/21 23:10 Antibiotics) Physical Exam Vitals: Vital Signs Temp Pulse Resp BP Pulse Ox 03/09/21 06:00 71 18 123/56 100 03/09/21 03:18 59 L 18 151/77 100 03/09/21 02:10 65 18 165/93 97 03/09/21 01:03 12 03/09/21 00:04 47 L 12 97/68 97 03/08/21 23:25 49 L 18 102/60 97 03/08/21 23:02 98.0 F 59 L 14 86/56 94 L Intake and Output 03/08/21 03/09/21 03/09/21 22:59 06:59 14:59 Other: Weight 63.503 kg Results CBC & Chem 7: 03/08/21 23:07 03/08/21 23:07 Labs: Abnormal Lab Results - Last 24 Hours (Table) 03/08/21 03/08/21 03/08/21 Range/Units 23:07 23:07 23:07 RBC 2.75 L (3.80-5.40) m/uL Hgb 9.1 L (11.4-16.0) gm/dL Hct 26.2 L (34.0-46.0) % Sodium 132 L (137-145) mmol/L Chloride 97 L (98-107) mmol/L BUN 22 H (7-17) mg/dL Creatinine 1.33 H (0.52-1.04) mg/dL Glucose 119 H (74-99) mg/dL Total Protein 5.9 L (6.3-8.2) g/dL Albumin 3.4 L (3.5-5.0) g/dL TSH 9.860 H (0.465-4.680) mIU/L Urine Protein 1+ H (Negative) Urine Blood Large H (Negative) Amorphous Sediment Rare H (None) /hpf Hyaline Casts 22 H (0-2) /lpf Urine Mucus Rare H (None) /hpf
[2021-03-09] MEDS: FAMOTIDINE 20 MG TAB PO SCH (09:03)
[2021-03-09] MEDS: FOLIC ACID 1 MG TAB PO SCH (09:03)
[2021-03-09] MEDS: GABAPENTIN 300 MG CAP PO SCH ×2 (09:03→22:04)
[2021-03-09] MEDS: DULoxetine HCL 60 MG CAPSULE.DR PO SCH (09:03)
[2021-03-09] MEDS: MAGNESIUM OXIDE 400 MG TAB PO SCH ×2 (09:03→22:06)
[2021-03-09] MEDS: SODIUM BICARBONATE TAB 650 MG TAB PO SCH ×2 (09:03→22:05)
[2021-03-09] MEDS: DICYCLOMINE 20 MG TAB PO SCH ×3 (09:03→22:05)
[2021-03-09] MEDS ORDERED: LIPASE 5,000/PROTEASE 17,000/AMYLASE 24,000 PO SCH (12:30)
[2021-03-09] MEDS: HYDROcodone/APAP 5-325MG 1 EACH TAB PO SCH ×2 (15:59→22:05)
[2021-03-09] MEDS: ZENPEP 40000 UNIT PO SCH ×2 (16:00→18:22)
[2021-03-09] MEDS: HEPARIN SODIUM,PORCINE/PF 5,000 UNIT/0.5 ML SYRINGE SQ SCH (17:05)
[2021-03-09] MEDS ORDERED: traZODone HCL 50 MG TAB PO SCH (21:00)
[2021-03-09] MEDS ORDERED: ALPRAZolam 0.5 MG TAB PO SCH (21:00)
[2021-03-09] MEDS ORDERED: carisoprodoL 350 MG TAB PO SCH (21:00)
[2021-03-09] MEDS ORDERED: QUEtiapine 50 MG TAB PO SCH (21:00)
[2021-03-09] MEDS ORDERED: QUEtiapine 50 MG TAB ONE (23:30)
[2021-03-09] MEDS ORDERED: DEXTROSE 5%-0.45% NACL 1,000 ML BAG IV ONE (23:30)
[2021-03-10] MEDS ORDERED: HEPARIN SODIUM,PORCINE/PF 5,000 UNIT/0.5 ML SYRINGE SQ ONE (01:08)
[2021-03-10] MEDS: HEPARIN SODIUM,PORCINE/PF 5,000 UNIT/0.5 ML SYRINGE SQ SCH ×3 (06:30→15:18)
[2021-03-10] MEDS: DEXTROSE 5%-0.45% NACL 1,000 ML IV SCH (07:07)
[2021-03-10 07:22] VITALS: RESP 16
[2021-03-10 07:22] LABS: ALT <6 U/L (4-34); AST 18 U/L (14-36); African American GFR (CKD) 56 (>60 ml/min/1.73 sqM); Albumin 3.2 g/dL (3.5-5.0); Albumin/Globulin Ratio 1.2; Alkaline Phosphatase 73 U/L (38-126); Anion Gap 7 mmol/L; Blood Urea Nitrogen 14 mg/dL (7-17); Calcium 9.1 mg/dL (8.4-10.2); Carbon Dioxide 27 mmol/L (22-30); Chloride 101 mmol/L (98-107); Globulin 2.6 g/dL; Glucose 111 mg/dL (74-99); Non-African American GFR(CKD) 48 (>60 ml/min/1.73 sqM); Phosphorus 3.8 mg/dL (2.5-4.5); Potassium 3.9 mmol/L (3.5-5.1); Sodium 135 mmol/L (137-145); Total Bilirubin 0.4 mg/dL (0.2-1.3); Total Protein 5.8 g/dL (6.3-8.2)
[2021-03-10] MEDS: HYDROcodone/APAP 5-325MG 1 EACH TAB PO SCH (08:11)
[2021-03-10] MEDS: DULoxetine HCL 60 MG CAPSULE.DR PO SCH (08:11)
[2021-03-10] MEDS: GABAPENTIN 300 MG CAP PO SCH (08:11)
[2021-03-10] MEDS: DICYCLOMINE 20 MG TAB PO SCH ×2 (08:11→15:18)
[2021-03-10] MEDS: FAMOTIDINE 20 MG TAB PO SCH (08:11)
[2021-03-10] MEDS: FOLIC ACID 1 MG TAB PO SCH (08:11)
[2021-03-10] MEDS: SODIUM BICARBONATE TAB 650 MG TAB PO SCH (08:11)
[2021-03-10] MEDS: MAGNESIUM OXIDE 400 MG TAB PO SCH (08:11)
[2021-03-10] MEDS: ZENPEP 40000 UNIT PO SCH ×2 (08:12→11:50)
[2021-03-10 09:35] LABS: Basophils # (A) 0.03 X 10*3/uL (0.00-0.10); Basophils % (A) 0.7 %; Eosinophils # (A) 0.04 X 10*3/uL (0.04-0.35); HCT 28.4 % (37.2-46.3); HGB 9.2 g/dL (12.0-15.0); Lymphocytes # (A) 1.34 X 10*3/uL (0.90-5.00); Lymphocytes % (A) 33.4 %; MCH 31.8 pg (27.0-32.0); MCHC 32.4 g/dL (32.0-37.0); MCV 98.3 fL (80.0-97.0); Mean Platelet Volume 9.8 fL (9.5-12.2); Monocytes # (A) 0.46 X 10*3/uL (0.20-1.00); Monocytes % (A) 11.5 %; Neutrophils % (A) 52.4 %; Platelet Count 223 X 10*3/uL (140-440); RBC 2.89 X 10*6/uL (4.10-5.20); RDW 13.2 % (11.5-14.5); WBC 4.01 X 10*3/uL (4.50-10.00)
--- NOTE | 2021-03-10 11:10 | P.DS ---
Providers Date of admission: 03/09/21 01:09 Expected date of discharge: 03/10/21 Attending physician: Meseret Haq Primary care physician: Meseret Haq Hospital Course: HISTORY OF PRESENT ILLNESS: This is a 65-year-old female patient of Dr. Haq with past medical historyof chronic pancreatitis, aplastic anemia, lupus anticoagulant, history of chronic kidney disease stage IIIA, GERD, diverticulitis, recurrent bowel obstruction, major depressive disorder, spondylosis of the lumbar spine, chronic pain in both lower extremities with painful nodules diagnosed with erythema nodosum. Patient has had multiple admissions to the hospital due to mental status changes and falls with loss of consciousness and injuries. On each admission, patient is stabilized and has been deemed safe to return home after evaluation by PT and OT. Patient was discharged yesterday and instructed to take half dose of Boyn[place] and half of Xanax. Unfortunately, patient took 2 Boynton and went outside to smoke, she ended up falling and her son found her and EMS was contacted. Patient was brought in by EMS to [facility] emergency center due to altered mental status. Patient was unresponsive while in the emergency center although mildly arousable. WBC 4.3, hemoglobin 9.1, platelet count 259. Sodium 132, potassium 4.1, chloride 97, CO2 26, BUN 22 and creatinine 1.33. Blood sugar 119. Magnesium 2.0. Liver function tests were normal. Troponin negative. TSH 9.860 and free T4 normal at 1.14. Urinalysis showed blood large, RBCs 3. Coronavirus not detected. EKG was a sinus rhythm with no acute ST changes. Patient received a dose of Narcan with some improvement of her mental status. Patient is found sleeping, arouses to verbal stimuli. Patient seen in the emergency center waiting for a [facility] bed. 03/10: Arterial ultrasound has been completed report is currently pending. Patient states that she is eating well. She still has burning type pain to the right leg. She has been afebrile, heart rate 69, blood pressure 152/76, pulse ox 94% on room air. Repeat blood work reveals WBC 4, hemoglobin 9.2, platelet count 223. Sodium 135, potassium 3.5, chloride 101, CO2 27, BUN 14 and creatinine 1.17. Liver function tests were normal. Blood sugar 111. Magnesium 2.0. Discussed discharge plan with the patient and she is noted to have 5 hospitalizations since January 31. PT and OT to evaluate in a patient meets criteria, but fortunately, patient did so well with PT and OT that she does not meet criteria for subacute rehab. Patient will be discharged home today in stable condition. Home care to be arranged. patient will be discharge to [facility] or the patient doesn't meet criteria, home with [facility]. ASSESSMENT AND PLAN: 1. Syncopal episode and falls secondary to noncompliance with medications and possibly noncompliance with using her DME for ambulation or utilizing electric wheelchair. 2. Erythema nodosum. 3. Chronic kidney disease stage IIIa. 4. History of aplastic anemia seems to be stable at this time patient has been getting iron infusions as an outpatient along with vitamin B12 supplement. 5. GERD. 6. 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 7. 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 8. Insomnia. 9. vitamin D deficiency. 10. Major depressive disorder. DISCHARGE PLAN: Home with [facility] Impression and plan of care have been directed as dictated by the signing physician. Annalsia Delcid nurse practitioner acting as scribe for signing physician. Patient Condition at Discharge: Stable Plan - Discharge Summary Discharge Rx Participant: Yes New Discharge Prescriptions: Continue Magnesium Oxide [Mag-Ox] 400 mg PO BID Folic Acid 1 mg PO DAILY DULoxetine HCL [Cymbalta] 60 mg PO DAILY traZODone HCL 150 mg PO HS Dicyclomine [Bentyl] 20 mg PO TID Sodium Bicarbonate Tab 650 mg PO BID Albuterol Sulfate [Proair Hfa] 1 puff INHALATION RT-Q4H PRN PRN Reason: Shortness Of Breath Lipase/Protease/Amylase [Zenpep Dr 40,000 Unit Capsule] 80,000 units PO AC- TID Famotidine [Pepcid] 20 mg PO BID Loperamide HCl [Imodium A-D] 2 mg PO TID PRN PRN Reason: Diarrhea QUEtiapine [SEROquel] 50 mg PO HS Ergocalciferol (Vitamin D2) [Drisdol (50,000 Iu)] 1,250 mcg PO Q14D Triamcinolone 0.1% Cream [Kenalog 0.1% Cream] 1 applic TOPICAL BID #30 gram Changed Gabapentin [Neurontin] 300 mg PO BID #9 cap HYDROcodone/APAP 5-325MG [Boynton 5-325] 1 tab PO BID PRN #6 tab PRN Reason: Pain ALPRAZolam [Xanax] 0.25 mg PO HS #6 tab Discontinued carisoprodoL [Soma] 350 mg PO HS Discharge Medication List DULoxetine HCL [Cymbalta] 60 mg PO DAILY 05/24/17 [History] Folic Acid 1 mg PO DAILY 05/24/17 [History] Magnesium Oxide [Mag-Ox] 400 mg PO BID 05/24/17 [History] traZODone HCL 150 mg PO HS 02/27/18 [History] Dicyclomine [Bentyl] 20 mg PO TID 07/10/18 [History] Albuterol Sulfate [Proair Hfa] 1 puff INHALATION RT-Q4H PRN 10/20/19 [History] Sodium Bicarbonate Tab 650 mg PO BID 10/20/19 [History] Famotidine [Pepcid] 20 mg PO BID 11/06/19 [History] Lipase/Protease/Amylase [Zenpep Dr 40,000 Unit Capsule] 80,000 units PO AC-TID 11/06/19 [History] Loperamide HCl [Imodium A-D] 2 mg PO TID PRN 11/06/19 [History] QUEtiapine [SEROquel] 50 mg PO HS 06/22/20 [History] Ergocalciferol (Vitamin D2) [Drisdol (50,000 Iu)] 1,250 mcg PO Q14D 01/31/21 [History] Triamcinolone 0.1% Cream [Kenalog 0.1% Cream] 1 applic TOPICAL BID #30 gram 02/12/21 [Rx] ALPRAZolam [Xanax] 0.25 mg PO HS #6 tab 03/10/21 [Rx] Gabapentin [Neurontin] 300 mg PO BID #9 cap 03/10/21 [Rx] HYDROcodone/APAP 5-325MG [[place] 5-325] 1 tab PO BID PRN #6 tab 03/10/21 [Rx] Follow up Appointment(s)/Referral(s): Meseret Haq MD [Primary Care Provider] - 03/12/21 1:15 pm Activity/Diet/Wound Care/Special Instructions: GET MEDS FROM PHARMACY Discharge Disposition: HOME WITH HOME HEALTH SERVICES
[2021-03-10 14:41] VITALS: BP 121/59; PULSE 70; TEMP 98.7
--- NOTE | 2021-03-10 15:10 | P.ARTDOP ---
Arterial Doppler LOWER EXTREMITY ARTERIAL DOPPLER: DATE OF SERVICE: 03/09/2021 Reason for study: PVD, bilateral ankle swelling. Doppler waveforms: Multiphasic bilaterally throughout, but broadened. Pulse volume recording: []. Pressure gradients: None. Ankle-brachial indices: Greater than 1 bilaterally. Toe brachial indices: 0.7 on the right, 0.81 on the left Impression: Normal study.
== END 2021-03-10 16:05 | disposition home health service (06) ==
LOC: EC 22:52 → 4SSUR 03-09 01:09
PROVIDERS: ADMIT Internal Medicine; ATTEND Internal Medicine
DX: R55 Syncope and collapse (principal); R41.82 Altered mental status, unspecified; Z79.899 Other long term (current) drug therapy; Z20.822 Contact with and (suspected) exposure to COVID-19; M79.604 Pain in right leg; L52 Erythema nodosum; I12.9 Hypertensive chronic kidney disease with stage 1 through stage 4 chronic kidney disease, or unspecified chronic kidney disease; K21.9 Gastro-esophageal reflux disease without esophagitis; K86.1 Other chronic pancreatitis; K91.2 Postsurgical malabsorption, not elsewhere classified; M47.816 Spondylosis without myelopathy or radiculopathy, lumbar region; E55.9 Vitamin D deficiency, unspecified; F17.210 Nicotine dependence, cigarettes, uncomplicated; F31.9 Bipolar disorder, unspecified; F43.10 Post-traumatic stress disorder, unspecified; G35 Multiple sclerosis; G47.00 Insomnia, unspecified; G62.9 Polyneuropathy, unspecified; G89.4 Chronic pain syndrome; J44.9 Chronic obstructive pulmonary disease, unspecified; M79.7 Fibromyalgia; M81.0 Age-related osteoporosis without current pathological fracture; N18.31 Chronic kidney disease, stage 3a; Z80.8 Family history of malignant neoplasm of other organs or systems; Z82.49 Family history of ischemic heart disease and other diseases of the circulatory system; D68.62 Lupus anticoagulant syndrome; Z85.028 Personal history of other malignant neoplasm of stomach; Z86.73 Personal history of transient ischemic attack (TIA), and cerebral infarction without residual deficits
CPT/HCPCS: 96361 ×3; 96372 ×2; 96374; 99285; 36415; 93005; 97162; 97166; 84439; 84481; 83880; 80053 ×2; 82550; 83605; 83735 ×2; 84100 ×2; 84443; 84484; 85025 ×2; 85610; 85730; 81001; 87635; 93922; G0378 ×2; J2310; J1644 ×2

== ENCOUNTER → 2021-03-17 | Outpatient (CLI) | payer MEDICARE, OTHER | END | disposition home or self-care (01) | LOC: RADCTMAIN 11:45 | PROVIDERS: ATTEND Internal Medicine | DX: Z53.9 Procedure and treatment not carried out, unspecified reason (principal) ==

== ENCOUNTER 2021-03-22 13:56 | Emergency (ER) | payer MEDICARE, OTHER ==
[2021-03-22 14:57] VITALS: BP 122/78; PULSE 70; RESP 16; TEMP 98.5
[2021-03-22] MEDS ORDERED: MORPHINE SULFATE 4 MG/ML SYRINGE IM STA (15:28)
--- NOTE | 2021-03-22 16:31 | US ---
EXAMINATION TYPE: US venous doppler duplex LE BI DATE OF EXAM: 03/22/2021 4:13 PM COMPARISON: Right lower extremity venous ultrasound February 28, 2021 CLINICAL HISTORY: bilateral lower leg pain. pain in legs, more so on the right, no swelling, no h/o d vt, pain when walking SIDE PERFORMED: Bilateral TECHNIQUE: The lower extremity deep venous system is examined utilizing real time linear array sonog roxana with graded compression, doppler sonography and color-flow sonography. VESSELS IMAGED: Common Femoral Vein Deep Femoral Vein Greater Saphenous Vein * Femoral Vein Popliteal Vein Small Saphenous Vein * Proximal Calf Veins (* superficial vessels) Right Leg: Negative for DVT Left Leg: Negative for DVT Grayscale, color doppler, spectral doppler imaging performed of the deep veins of the bilateral lower extremities. There is normal flow, compressibility, vascular waveforms. IMPRESSION: No ultrasound evidence for acute DVT in either lower extremity on current study.
--- NOTE | 2021-03-22 17:15 | ED ---
Back Pain HPI - General Chief Complaint: Back Pain/Injury Stated Complaint: Back Pain Time Seen by Provider: 03/22/21 15:08 Source: patient, RN notes reviewed Limitations: no limitations - History of Present Illness Initial Comments: Patient is a 65 female that presents emergency room complaining of low back pain and bilateral feet pain. She notes that the bilateral feet pain is worse in her back pain. She notes that she has had a history of back surgeries and has a fractured L4. She notes that her concerning issue today is that her feet or changing colors and they're painful to walk on. Patient notes that she was told that she might need a computed tomography scan or some type of imaging to look at the vascularity of her feet. She notes that she's been in want to do that this time. He wants symptomatic control the pain. She was otherwise well- appearing. She notes she does have a history of COPD. She denied any chest pain first breath headache nausea vomiting diarrhea constipation fever fatigue chills. - Related Data Home Medications Medication Instructions Recorded Confirmed DULoxetine HCL [Cymbalta] 60 mg PO DAILY 05/24/17 03/08/21 Folic Acid 1 mg PO DAILY 05/24/17 03/08/21 Magnesium Oxide [Mag-Ox] 400 mg PO BID 05/24/17 03/08/21 traZODone HCL 150 mg PO HS 02/27/18 03/08/21 Dicyclomine [Bentyl] 20 mg PO TID 07/10/18 03/08/21 Albuterol Sulfate [Proair Hfa] 1 puff INHALATION RT-Q4H PRN 10/20/19 03/08/21 Sodium Bicarbonate Tab 650 mg PO BID 10/20/19 03/08/21 Famotidine [Pepcid] 20 mg PO BID 11/06/19 03/08/21 Lipase/Protease/Amylase [Zenpep Dr 80,000 units PO AC-TID 11/06/19 03/08/21 40,000 Unit Capsule] Loperamide HCl [Imodium A-D] 2 mg PO TID PRN 11/06/19 03/08/21 QUEtiapine [SEROquel] 50 mg PO HS 06/22/20 03/08/21 Ergocalciferol (Vitamin D2) 1,250 mcg PO Q14D 01/31/21 03/08/21 [Drisdol (50,000 Iu)] Previous Rx's Medication Instructions Recorded Triamcinolone 0.1% Cream [Kenalog 1 applic TOPICAL BID #30 gram 02/12/21 0.1% Cream] ALPRAZolam [Xanax] 0.25 mg PO HS #6 tab 03/10/21 Gabapentin [Neurontin] 300 mg PO BID #9 cap 03/10/21 HYDROcodone/APAP 5-325MG [[place] 1 tab PO BID PRN #6 tab 03/10/21 5-325] Allergies Allergy/AdvReac Type Severity Reaction Status Date / Time alcohol Allergy Vomiting Verified 03/22/21 14:57 aspirin Allergy Unknown Verified 03/22/21 14:57 divalproex sodium Allergy Unknown Verified 03/22/21 14:57 [From Depakote] erythromycin base Allergy Unknown Verified 03/22/21 14:57 ketorolac [From Toradol] Allergy Unknown Verified 03/22/21 14:57 Penicillins Allergy Unknown Verified 03/22/21 14:57 shellfish derived [Shellfish] Allergy Unknown Verified 03/22/21 14:57 strawberry Allergy Unknown Verified 03/22/21 14:57 Sulfa (Sulfonamide Allergy Unknown Verified 03/22/21 14:57 Antibiotics) Review of Systems ROS Statement: Those systems with pertinent positive or pertinent negative responses have been documented in the HPI. ROS Other: All systems not noted in ROS Statement are negative. Past Medical History Past Medical History: Cancer, COPD, CVA/TIA, Fibromyalgia, Hypertension Additional Past Medical History / Comment(s): Lupus, TIA, right hand tendons severed, closed head injury, multiple sclerosis, short bowel syndrome, pancreatic insufficiency, bowel cancer History of Any Multi-Drug Resistant Organisms: C-DIFF Date of last positivie culture/infection: 2014 MDRO Source:: patient Past Surgical History: Appendectomy, Back Surgery, Section, Orthopedic Surgery Additional Past Surgical History / Comment(s): stomach cancer, right hemicolectomy and small bowel resection Past Anesthesia/Blood Transfusion Reactions: No Reported Reaction Past Psychological History: Anxiety, Bipolar, Depression, PTSD Smoking Status: Current every day smoker Past Alcohol Use History: None Reported Past Drug Use History: None Reported - Past Family History Father Additional Family Medical History / Comment(s): Father has history of diabetes and stomach problems. Mother Additional Family Medical History / Comment(s): Mother has history of diabetes, coronary artery disease and COPD. Sister(s) Additional Family Medical History / Comment(s): Patient has sisters all have female problems. She does state there is breast cancer history in her aunt. Son(s) Family Medical History: No Reported History Additional Family Medical History / Comment(s): Patient has one son with no major medical problems. General Exam Limitations: no limitations General appearance: alert, in no apparent distress Head exam: Present: atraumatic, normocephalic, normal inspection Eye exam: Present: normal appearance, PERRL, EOMI. Absent: scleral icterus, conjunctival injection, periorbital swelling ENT exam: Present: normal exam, mucous membranes moist Neck exam: Present: normal inspection Respiratory exam: Present: normal lung sounds bilaterally. Absent: respiratory distress, wheezes, rales, rhonchi, stridor Cardiovascular Exam: Present: regular rate, normal rhythm, normal heart sounds. Absent: systolic murmur, diastolic murmur, rubs, gallop, clicks GI/Abdominal exam: Present: soft, normal bowel sounds. Absent: distended, tenderness, guarding, rebound, rigid Extremities exam: Present: normal inspection, full ROM, normal capillary refill. Absent: tenderness, pedal edema, joint swelling, calf tenderness Neurological exam: Present: alert, oriented X3 Psychiatric exam: Present: normal affect, normal mood Skin exam: Present: warm, dry, intact, normal color, other (Bilateral lower extremities/feet hyperpigmented, good capillary refill, warm to the touch). Absent: rash Course Vital Signs 03/22/21 14:53 Temperature 98.5 F Pulse Rate 70 Respiratory 16 Rate Blood Pressure 122/78 O2 Sat by Pulse 98 Oximetry Medical Decision Making - Medical Decision Making 75-year-old female complaining of bilateral feet swelling and pain. Ultrasound of the bilateral lower extremities ordered. Ultrasound negative for DVT. Patient has venous insufficiency needs to follow- up with ask her specialist. Patient is agreeable with discharge home with follow-up to a vascular surgeon. Case discussed with Dr. Isaac, patient discharge home in stable condition. Disposition Clinical Impression: Venous insufficiency Disposition: HOME SELF-CARE Condition: Stable Instructions (If sedation given, give patient instructions): Peripheral Vascular Disease (ED) Additional Instructions: Please return to the Emergency Department if symptoms worsen or any other concerns. Follow-up with primary care 1-2 days. Follow-up with vascular surgeon as soon as possible. Take Tylenol Motrin as needed for pain. Is patient prescribed a controlled substance at d/c from ED?: No Referrals: Meseret Haq MD [Primary Care Provider] - 1-2 days Sumit Reyes DO [STAFF PHYSICIAN] - 1-2 days Time of Disposition: 17:15
== END 2021-03-22 17:46 | disposition home or self-care (01) ==
LOC: EC 13:56
DX: I87.2 Venous insufficiency (chronic) (peripheral) (principal); F17.200 Nicotine dependence, unspecified, uncomplicated; I10 Essential (primary) hypertension; J44.9 Chronic obstructive pulmonary disease, unspecified; Z88.0 Allergy status to penicillin; Z88.1 Allergy status to other antibiotic agents; Z88.2 Allergy status to sulfonamides; Z88.8 Allergy status to other drugs, medicaments and biological substances; Z88.6 Allergy status to analgesic agent; Z91.013 Allergy to seafood; Z91.018 Allergy to other foods; Z79.899 Other long term (current) drug therapy
CPT/HCPCS: 93970; 99283; 96372; J2270

== ENCOUNTER 2021-03-31 13:27 | Emergency (ER) | payer MEDICARE, OTHER ==
[2021-03-31] MEDS ORDERED: MORPHINE SULFATE 4 MG/ML SYRINGE IM STA (15:21)
--- NOTE | 2021-03-31 15:24 | ED ---
General Adult HPI - General Chief complaint: Back Pain/Injury Stated complaint: Back Pain Time Seen by Provider: 03/31/21 14:50 Source: patient Mode of arrival: wheelchair Limitations: no limitations - History of Present Illness Initial comments: Dictation was produced using [employer] dictation software. please excuse any grammatical, word or spelling errors. Chief Complaint: 65-year-old female with subacute L4 superior endplate fracture presents emergency department for back pain History of Present Illness: She 5-year-old female she presents to emergency department for back pain. Patient states several weeks ago she fell. She was evaluated and was found to have a superior endplate of L4 fracture. Patient was diagnosed with a fracture 1 month ago seen on x-ray. She followed up with orthopedic spine surgery recently. She was given a brace. Patient was given prescription for Dieterich was by her primary care doctor. She states that really helping to alleviate her pain. Eyes any rating symptoms. No saddle anesthesia. No stool or bladder incontinence or retention. The ROS documented in this emergency department record has been reviewed and confirmed by me. Those systems with pertinent positive or negative responses have been documented in the HPI. All other systems are other negative and/or noncontributory. PHYSICAL EXAM: General Impression: Alert and oriented x3, not in acute distress HEENT: Normocephalic atraumatic, extra-ocular movements intact, pupils equal and reactive to light bilaterally, mucous membranes moist. Cardiovascular: Heart regular rate and rhythm Chest: Able to complete full sentences, no retractions, no tachypnea Abdomen: abdomen soft, non-tender, non-distended, no organomegaly Musculoskeletal: Pulses present and equal in all extremities, no peripheral edema Motor: no focal deficits noted Neurological: CN II-XII grossly intact, no focal motor or sensory deficits noted Skin: Intact with no visualized rashes Psych: Normal affect and mood ED course: 65-year-old female presents to the emergency department for acute on chronic back pain. She recently suffered a L4 superior endplate fracture from a fall after slipping at home on some water. Vital signs upon arrival are within acceptable limits.Patient given IM morphine. Patient's review bedside at 4:30 PM. She states her symptoms are significantly improved. Patient discharged is advised follow-up with primary care doctor. Patient given 4 tabs of morphine immediate release to be taken when necessary severe pain - Related Data Home Medications Medication Instructions Recorded Confirmed DULoxetine HCL [Cymbalta] 60 mg PO DAILY 05/24/17 03/08/21 Folic Acid 1 mg PO DAILY 05/24/17 03/08/21 Magnesium Oxide [Mag-Ox] 400 mg PO BID 05/24/17 03/08/21 traZODone HCL 150 mg PO HS 02/27/18 03/08/21 Dicyclomine [Bentyl] 20 mg PO TID 07/10/18 03/08/21 Albuterol Sulfate [Proair Hfa] 1 puff INHALATION RT-Q4H PRN 10/20/19 03/08/21 Sodium Bicarbonate Tab 650 mg PO BID 10/20/19 03/08/21 Famotidine [Pepcid] 20 mg PO BID 11/06/19 03/08/21 Lipase/Protease/Amylase [Zenpep Dr 80,000 units PO AC-TID 11/06/19 03/08/21 40,000 Unit Capsule] Loperamide HCl [Imodium A-D] 2 mg PO TID PRN 11/06/19 03/08/21 QUEtiapine [SEROquel] 50 mg PO HS 06/22/20 03/08/21 Ergocalciferol (Vitamin D2) 1,250 mcg PO Q14D 01/31/21 03/08/21 [Drisdol (50,000 Iu)] Previous Rx's Medication Instructions Recorded Triamcinolone 0.1% Cream [Kenalog 1 applic TOPICAL BID #30 gram 02/12/21 0.1% Cream] ALPRAZolam [Xanax] 0.25 mg PO HS #6 tab 03/10/21 Gabapentin [Neurontin] 300 mg PO BID #9 cap 03/10/21 HYDROcodone/APAP 5-325MG [Dieterich 1 tab PO BID PRN #6 tab 03/10/21 5-325] Morphine Sulfate Ir [MSIR] 15 mg PO Q6HR PRN 3 Days #4 tab 03/31/21 Allergies Allergy/AdvReac Type Severity Reaction Status Date / Time alcohol Allergy Vomiting Verified 03/31/21 13:59 aspirin Allergy Unknown Verified 03/31/21 13:59 divalproex sodium Allergy Unknown Verified 03/31/21 13:59 [From Depakote] erythromycin base Allergy Unknown Verified 03/31/21 13:59 ketorolac [From Toradol] Allergy Unknown Verified 03/31/21 13:59 Penicillins Allergy Unknown Verified 03/31/21 13:59 shellfish derived [Shellfish] Allergy Unknown Verified 03/31/21 13:59 strawberry Allergy Unknown Verified 03/31/21 13:59 Sulfa (Sulfonamide Allergy Unknown Verified 03/31/21 13:59 Antibiotics) Review of Systems ROS Statement: Those systems with pertinent positive or pertinent negative responses have been documented in the HPI. ROS Other: All systems not noted in ROS Statement are negative. Past Medical History Past Medical History: Cancer, COPD, CVA/TIA, Fibromyalgia, Hypertension Additional Past Medical History / Comment(s): Lupus, TIA, right hand tendons severed, closed head injury, multiple sclerosis, short bowel syndrome, pancreatic insufficiency, bowel cancer History of Any Multi-Drug Resistant Organisms: C-DIFF Date of last positivie culture/infection: 2014 MDRO Source:: patient Past Surgical History: Appendectomy, Back Surgery, Section, Orthopedic Surgery Additional Past Surgical History / Comment(s): stomach cancer, right hemicolectomy and small bowel resection Past Anesthesia/Blood Transfusion Reactions: No Reported Reaction Past Psychological History: Anxiety, Bipolar, Depression, PTSD Smoking Status: Current every day smoker Past Alcohol Use History: None Reported Past Drug Use History: None Reported - Past Family History Father Additional Family Medical History / Comment(s): Father has history of diabetes and stomach problems. Mother Additional Family Medical History / Comment(s): Mother has history of diabetes, coronary artery disease and COPD. Sister(s) Additional Family Medical History / Comment(s): Patient has sisters all have female problems. She does state there is breast cancer history in her aunt. Son(s) Family Medical History: No Reported History Additional Family Medical History / Comment(s): Patient has one son with no major medical problems. General Exam Limitations: no limitations Course Vital Signs 03/31/21 13:57 Temperature 98.5 F Pulse Rate 70 Respiratory 16 Rate Blood Pressure 147/71 O2 Sat by Pulse 100 Oximetry Disposition Clinical Impression: Back pain Disposition: HOME SELF-CARE Condition: Fair Instructions (If sedation given, give patient instructions): Acute Low Back Pain (ED) Prescriptions: Morphine Sulfate Ir [MSIR] 15 mg PO Q6HR PRN 3 Days #4 tab PRN Reason: Severe Pain Is patient prescribed a controlled substance at d/c from ED?: Yes If prescribed controlled substance>3 days was MAPS reviewed?: Prescribed <3 Days Referrals: Meseret Haq MD [Primary Care Provider] - 1-2 days
[2021-03-31 16:57] VITALS: BP 160/96; PULSE 71; RESP 18; TEMP 98.4
== END 2021-03-31 16:55 | disposition home or self-care (01) ==
LOC: EC 13:27
DX: M54.9 Dorsalgia, unspecified (principal); J44.9 Chronic obstructive pulmonary disease, unspecified; I10 Essential (primary) hypertension; M79.7 Fibromyalgia; F17.200 Nicotine dependence, unspecified, uncomplicated; Z88.0 Allergy status to penicillin; Z88.2 Allergy status to sulfonamides; Z88.5 Allergy status to narcotic agent; Z88.1 Allergy status to other antibiotic agents; Z88.6 Allergy status to analgesic agent; Z91.013 Allergy to seafood; Z91.018 Allergy to other foods; Z86.73 Personal history of transient ischemic attack (TIA), and cerebral infarction without residual deficits; Z91.048 Other nonmedicinal substance allergy status; Z79.899 Other long term (current) drug therapy; W19.XXXA Unspecified fall, initial encounter
CPT/HCPCS: 99283; 96372; J2270

== ENCOUNTER 2021-04-03 18:54 | Emergency (ER) | payer MEDICARE, OTHER ==
--- NOTE | 2021-04-03 19:35 | ED ---
General Adult HPI - General Stated complaint: Fall Time Seen by Provider: 04/03/21 19:00 Source: patient, EMS, RN notes reviewed Mode of arrival: EMS Limitations: no limitations - History of Present Illness Initial comments: This a 65-year-old female presents emergency Department chief complaint of trip and fall. Patient tripped over small lip and the ground. Patient states that she fell she injured her left foot and ankle are patient did strike her head was a mild headache, neck pain. Patient was in a c-collar when she department via EMS. Denies any other significant injury. Patient does have chronic pain. - Related Data Home Medications Medication Instructions Recorded Confirmed DULoxetine HCL [Cymbalta] 60 mg PO DAILY 05/24/17 03/08/21 Folic Acid 1 mg PO DAILY 05/24/17 03/08/21 Magnesium Oxide [Mag-Ox] 400 mg PO BID 05/24/17 03/08/21 traZODone HCL 150 mg PO HS 02/27/18 03/08/21 Dicyclomine [Bentyl] 20 mg PO TID 07/10/18 03/08/21 Albuterol Sulfate [Proair Hfa] 1 puff INHALATION RT-Q4H PRN 10/20/19 03/08/21 Sodium Bicarbonate Tab 650 mg PO BID 10/20/19 03/08/21 Famotidine [Pepcid] 20 mg PO BID 11/06/19 03/08/21 Lipase/Protease/Amylase [Zenpep Dr 80,000 units PO AC-TID 11/06/19 03/08/21 40,000 Unit Capsule] Loperamide HCl [Imodium A-D] 2 mg PO TID PRN 11/06/19 03/08/21 QUEtiapine [SEROquel] 50 mg PO HS 06/22/20 03/08/21 Ergocalciferol (Vitamin D2) 1,250 mcg PO Q14D 01/31/21 03/08/21 [Drisdol (50,000 Iu)] Previous Rx's Medication Instructions Recorded Triamcinolone 0.1% Cream [Kenalog 1 applic TOPICAL BID #30 gram 02/12/21 0.1% Cream] ALPRAZolam [Xanax] 0.25 mg PO HS #6 tab 03/10/21 Gabapentin [Neurontin] 300 mg PO BID #9 cap 03/10/21 HYDROcodone/APAP 5-325MG [[place] 1 tab PO BID PRN #6 tab 03/10/21 5-325] Morphine Sulfate Ir [MSIR] 15 mg PO Q6HR PRN 3 Days #4 tab 03/31/21 Allergies Allergy/AdvReac Type Severity Reaction Status Date / Time alcohol Allergy Vomiting Verified 04/03/21 19:36 aspirin Allergy Unknown Verified 04/03/21 19:36 divalproex sodium Allergy Unknown Verified 04/03/21 19:36 [From Depakote] erythromycin base Allergy Unknown Verified 04/03/21 19:36 ketorolac [From Toradol] Allergy Unknown Verified 04/03/21 19:36 Penicillins Allergy Unknown Verified 04/03/21 19:36 shellfish derived [Shellfish] Allergy Unknown Verified 04/03/21 19:36 strawberry Allergy Unknown Verified 04/03/21 19:36 Sulfa (Sulfonamide Allergy Unknown Verified 04/03/21 19:36 Antibiotics) Review of Systems ROS Statement: Those systems with pertinent positive or pertinent negative responses have been documented in the HPI. ROS Other: All systems not noted in ROS Statement are negative. Past Medical History Past Medical History: Cancer, COPD, CVA/TIA, Fibromyalgia, Hypertension Additional Past Medical History / Comment(s): Lupus, TIA, right hand tendons severed, closed head injury, multiple sclerosis, short bowel syndrome, griffin creatic insufficiency, bowel cancer History of Any Multi-Drug Resistant Organisms: C-DIFF Date of last positivie culture/infection: 2014 MDRO Source:: patient Past Surgical History: Appendectomy, Back Surgery, Section, Orthopedic Surgery Additional Past Surgical History / Comment(s): stomach cancer, right hemicolectomy and small bowel resection Past Anesthesia/Blood Transfusion Reactions: No Reported Reaction Past Psychological History: Anxiety, Bipolar, Depression, PTSD Smoking Status: Current every day smoker Past Alcohol Use History: None Reported Past Drug Use History: None Reported - Past Family History Father Additional Family Medical History / Comment(s): Father has history of diabetes and stomach problems. Mother Additional Family Medical History / Comment(s): Mother has history of diabetes, coronary artery disease and COPD. Sister(s) Additional Family Medical History / Comment(s): Patient has sisters all have female problems. She does state there is breast cancer history in her aunt. Son(s) Family Medical History: No Reported History Additional Family Medical History / Comment(s): Patient has one son with no major medical problems. General Exam General appearance: alert, in no apparent distress Head exam: Present: atraumatic, normocephalic, normal inspection Eye exam: Present: normal appearance, PERRL, EOMI. Absent: scleral icterus, conjunctival injection, periorbital swelling ENT exam: Present: normal exam, mucous membranes moist Neck exam: Present: normal inspection, tenderness (Paraspinal). Absent: meningismus, full ROM (Patient c-collar), lymphadenopathy Respiratory exam: Present: normal lung sounds bilaterally. Absent: respiratory distress, wheezes, rales, rhonchi, stridor Cardiovascular Exam: Present: regular rate, normal rhythm, normal heart sounds. Absent: systolic murmur, diastolic murmur, rubs, gallop, clicks Extremities exam: Present: other (Tenderness to left foot and ankle neurovascular intact) Back exam: Present: full ROM. Absent: tenderness Neurological exam: Present: alert, oriented X3, CN II-XII intact, reflexes normal. Absent: motor sensory deficit Skin exam: Present: warm, dry, intact, normal color. Absent: rash Course Vital Signs 04/03/21 19:30 Temperature 98.8 F Pulse Rate 87 Respiratory 19 Rate Blood Pressure 157/72 O2 Sat by Pulse 96 Oximetry Procedures - Orthopedic Splinting/Casting Injury #1 Side: left Lower Extremity Injury Location: short leg, foot Lower Extremity Immobilizer: posterior splint, synthetic pre-padded splint Other Orthopedic Equipment: walker, other (Electric scooter) Medical Decision Making - Medical Decision Making Patient has multiple metatarsal fractures. Patient was splinted and will follow-up with orthopedics on Monday return parameters were discussed. Disposition Clinical Impression: Fall, Fracture of metatarsal of left foot, closed Disposition: HOME SELF-CARE Condition: Stable Instructions (If sedation given, give patient instructions): Foot Fracture in Adults (ED) Additional Instructions: Please return to the Emergency Department if symptoms worsen or any other concerns. Is patient prescribed a controlled substance at d/c from ED?: No Referrals: Meseret Haq MD [Primary Care Provider] - 1-2 days Vipul Danielle MD [Medical Doctor] - 1-2 days Time of Disposition: 22:25
--- NOTE | 2021-04-03 20:33 | CT ---
EXAMINATION TYPE: CT brain cspine wo con DATE OF EXAM: 04/03/2021 COMPARISON: CT brain 03/05/2021 HISTORY: Fall today. Head and neck pain. CT DLP: 1300.6 mGycm Automated exposure control for dose reduction was used. Exam performed without contrast. There is cerebral cortical atrophy. There is no mass effect nor midline shift. There is no sign of in tracranial hemorrhage. Calvarium is intact. There is normal aeration of the mastoid sinuses. The cervical vertebra have normal alignment. The posterior elements are intact. Disc spaces are fairl y normal. Facet joints are intact. Prevertebral soft tissues are intact. There is no evidence of a fr acture. IMPRESSION: Negative CT scan of the cervical spine. Spine appears normal for age. Minimal anterior spurring. Cerebral atrophy. No acute intracranial abnormality. No change compared to old exam.
--- NOTE | 2021-04-03 20:35 | XR ---
EXAMINATION TYPE: XR foot complete LT DATE OF EXAM: 04/03/2021 COMPARISON: 05/08/2019 HISTORY: Pain TECHNIQUE: 3 views FINDINGS: There is soft tissue swelling of the forefoot. There is some deformity of the head of the s econd and third and fourth metatarsals related to nondisplaced fractures. The toes appear intact. The re is some osteopenia. Hindfoot appears intact. IMPRESSION: Multiple metatarsal head fractures appear new compared to old exam. Fractures are probabl y subacute. Soft tissue swelling.
--- NOTE | 2021-04-03 20:37 | XR ---
EXAMINATION TYPE: XR ankle complete LT DATE OF EXAM: 04/03/2021 COMPARISON: 11/06/2019 HISTORY: Fall. Pain TECHNIQUE: 3 views FINDINGS: There is soft tissue swelling over the lateral malleolus. Ankle mortise is anatomic. I see no fracture nor dislocation. Hindfoot appears intact. IMPRESSION: Soft tissue swelling. No fracture.
[2021-04-03 22:37] VITALS: BP 148/86; PULSE 83; RESP 18; TEMP 98.2
== END 2021-04-03 22:37 | disposition home or self-care (01) ==
LOC: EC 18:54
DX: S92.325A Nondisplaced fracture of second metatarsal bone, left foot, initial encounter for closed fracture (principal); S92.335A Nondisplaced fracture of third metatarsal bone, left foot, initial encounter for closed fracture; S92.345A Nondisplaced fracture of fourth metatarsal bone, left foot, initial encounter for closed fracture; R51.9 Headache, unspecified; M54.2 Cervicalgia; F17.200 Nicotine dependence, unspecified, uncomplicated; I10 Essential (primary) hypertension; J44.9 Chronic obstructive pulmonary disease, unspecified; M79.7 Fibromyalgia; Z88.0 Allergy status to penicillin; Z88.1 Allergy status to other antibiotic agents; Z88.2 Allergy status to sulfonamides; Z91.018 Allergy to other foods; Z88.5 Allergy status to narcotic agent; Z88.6 Allergy status to analgesic agent; Z91.013 Allergy to seafood; Z88.8 Allergy status to other drugs, medicaments and biological substances; Z79.899 Other long term (current) drug therapy; W01.0XXA Fall on same level from slipping, tripping and stumbling without subsequent striking against object, initial encounter
CPT/HCPCS: 29515; 70450; 72125; 99284

== ENCOUNTER 2021-04-10 21:09 | Observation (INO) | payer MEDICARE, OTHER ==
--- NOTE | 2021-04-10 21:33 | ED ---
Altered Mental Status HPI - General Chief Complaint: Altered Mental Status Stated Complaint: Altered Mental Status Time Seen by Provider: 04/10/21 21:15 Source: patient, EMS Mode of arrival: EMS Limitations: altered mental status - History of Present Illness Initial Comments: Patient is a 65-year-old woman brought for evaluation of altered mental status. The patient states that she has felt sleepy all day. She denies other complaints. No headache, chest pain, abdominal pain, dyspnea, fever or chills. The patient states she does have some aching in her foot, where she was diagnosed with recent fracture. MD Complaint: altered mental status Onset/Timin -: days(s) Severity: moderate Associated Symptoms: denies other symptoms - Related Data Home Medications Medication Instructions Recorded Confirmed DULoxetine HCL [Cymbalta] 60 mg PO DAILY 05/24/17 04/10/21 Folic Acid 1 mg PO DAILY 05/24/17 04/10/21 Magnesium Oxide [Mag-Ox] 400 mg PO BID 05/24/17 04/10/21 Dicyclomine [Bentyl] 20 mg PO TID 07/10/18 04/10/21 Albuterol Sulfate [Proair Hfa] 2 puff INHALATION RT-Q4H PRN 10/20/19 04/10/21 Sodium Bicarbonate Tab 650 mg PO BID 10/20/19 04/10/21 Famotidine [Pepcid] 20 mg PO BID 11/06/19 04/10/21 Loperamide HCl [Imodium A-D] 2 mg PO TID PRN 11/06/19 04/10/21 QUEtiapine [SEROquel] 50 mg PO HS 06/22/20 04/10/21 Ergocalciferol (Vitamin D2) 1,250 mcg PO Q7D 01/31/21 04/10/21 [Drisdol (50,000 Iu)] Previous Rx's Medication Instructions Recorded Cefdinir [Omnicef] 300 mg PO BID #10 cap 04/13/21 Gabapentin [Neurontin] 300 mg PO TID PRN #9 cap 04/13/21 Allergies Allergy/AdvReac Type Severity Reaction Status Date / Time alcohol Allergy Vomiting Verified 04/10/21 21:58 aspirin Allergy Unknown Verified 04/10/21 21:58 divalproex sodium Allergy Unknown Verified 04/10/21 21:58 [From Depakote] erythromycin base Allergy Unknown Verified 04/10/21 21:58 ketorolac [From Toradol] Allergy Unknown Verified 04/10/21 21:58 Penicillins Allergy Unknown Verified 04/10/21 21:58 shellfish derived [Shellfish] Allergy Unknown Verified 04/10/21 21:58 strawberry Allergy Unknown Verified 04/10/21 21:58 Sulfa (Sulfonamide Allergy Unknown Verified 04/10/21 21:58 Antibiotics) Review of Systems ROS Statement: Those systems with pertinent positive or pertinent negative responses have been documented in the HPI. ROS Other: All systems not noted in ROS Statement are negative. Constitutional: Denies: fever, chills, weakness Eyes: Denies: vision change Respiratory: Denies: cough, dyspnea Cardiovascular: Denies: chest pain, palpitations, edema, syncope Gastrointestinal: Denies: abdominal pain, vomiting, diarrhea Genitourinary: Denies: dysuria, hematuria Musculoskeletal: Reports: as per HPI, arthralgia (Recent left foot fracture). Denies: back pain Skin: Denies: rash Neurological: Denies: headache, weakness Past Medical History Past Medical History: Cancer, COPD, CVA/TIA, Fibromyalgia, Hypertension Additional Past Medical History / Comment(s): Lupus, TIA, right hand tendons severed, closed head injury, multiple sclerosis, short bowel syndrome, pancreatic insufficiency, bowel cancer History of Any Multi-Drug Resistant Organisms: C-DIFF Date of last positivie culture/infection: 2014 MDRO Source:: patient Past Surgical History: Appendectomy, Back Surgery, Section, Orthopedic Surgery Additional Past Surgical History / Comment(s): stomach cancer, right hemicolecto my and small bowel resection Past Anesthesia/Blood Transfusion Reactions: No Reported Reaction Past Psychological History: Anxiety, Bipolar, Depression, PTSD Smoking Status: Current every day smoker Past Alcohol Use History: None Reported Past Drug Use History: None Reported - Past Family History Father Additional Family Medical History / Comment(s): Father has history of diabetes and stomach problems. Mother Additional Family Medical History / Comment(s): Mother has history of diabetes, coronary artery disease and COPD. Sister(s) Additional Family Medical History / Comment(s): Patient has sisters all have female problems. She does state there is breast cancer history in her aunt. Son(s) Family Medical History: No Reported History Additional Family Medical History / Comment(s): Patient has one son with no major medical problems. General Exam Limitations: altered mental status General appearance: alert, in no apparent distress Head exam: Present: atraumatic, normocephalic Eye exam: Present: normal appearance, PERRL, EOMI. Absent: scleral icterus, conjunctival injection ENT exam: Present: mucous membranes dry Neck exam: Present: normal inspection, full ROM Respiratory exam: Present: normal lung sounds bilaterally. Absent: respiratory distress, wheezes, rales, rhonchi, stridor Cardiovascular Exam: Present: regular rate, normal rhythm, normal heart sounds. Absent: systolic murmur, diastolic murmur, rubs, gallop GI/Abdominal exam: Present: soft. Absent: distended, tenderness, guarding, rebound, rigid, mass Extremities exam: Present: normal inspection, normal capillary refill, other (There is cast boot on left foot). Absent: pedal edema, calf tenderness Back exam: Present: normal inspection Neurological exam: Present: alert Skin exam: Present: warm, dry, intact, normal color. Absent: rash Course Vital Signs 04/10/21 04/11/21 04/11/21 21:11 04:59 08:34 Temperature 98 F 98.2 F Pulse Rate 67 70 70 Pulse Rate [ Right] Respiratory 16 17 16 Rate Blood Pressure 123/68 154/79 Blood Pressure [Right Arm] O2 Sat by Pulse 92 L 99 98 Oximetry 04/11/21 04/11/21 14:07 16:54 Temperature 98.6 F 98.6 F Pulse Rate 72 Pulse Rate [ 67 Right] Respiratory 16 18 Rate Blood Pressure 148/68 Blood Pressure 164/76 [Right Arm] O2 Sat by Pulse 97 100 Oximetry Medical Decision Making - Medical Decision Making I reviewed the patient's medications reveal that she appears to be taking over the prescribed doses of Xanax and [place]. Patient is found to have acute kidney injury, probably due to hypovolemia. IV fluids are started and patient be admitted to follow the creatinine. - Lab Data Result diagrams: 04/12/21 06:30 04/13/21 10:35 Lab Results 04/10/21 04/10/21 04/10/21 Range/Units 22:06 22:06 22:06 WBC 3.5 L (3.8-10.6) k/uL RBC 2.59 L (3.80-5.40) m/uL Hgb 8.2 L (11.4-16.0) gm/dL Hct 25.5 L (34.0-46.0) % MCV 98.4 (80.0-100.0) fL MCH 31.7 (25.0-35.0) pg MCHC 32.2 (31.0-37.0) g/dL RDW 14.1 (11.5-15.5) % Plt Count 295 (150-450) k/uL MPV 7.6 Neutrophils % 49 % Lymphocytes % 38 % Monocytes % 6 % Eosinophils % 2 % Basophils % 0 % Neutrophils # 1.7 (1.3-7.7) k/uL Lymphocytes # 1.3 (1.0-4.8) k/uL Monocytes # 0.2 (0-1.0) k/uL Eosinophils # 0.1 (0-0.7) k/uL Basophils # 0.0 (0-0.2) k/uL Sodium 137 (137-145) mmol/L Potassium 3.4 L (3.5-5.1) mmol/L Chloride 103 (98-107) mmol/L Carbon Dioxide 21 L (22-30) mmol/L Anion Gap 13 mmol/L BUN 31 H (7-17) mg/dL Creatinine 2.36 H (0.52-1.04) mg/dL Est GFR (CKD-EPI)AfAm 24 (>60 ml/min/1.73 sqM) Est GFR (CKD-EPI)NonAf 21 (>60 ml/min/1.73 sqM) Glucose 82 (74-99) mg/dL POC Glucose (mg/dL) (75-99) mg/dL POC Glu Pot Maker ID Calcium 9.0 (8.4-10.2) mg/dL Total Bilirubin 0.7 (0.2-1.3) mg/dL AST 22 (14-36) U/L ALT 8 (4-34) U/L Alkaline Phosphatase 87 (38-126) U/L Troponin I <0.012 (0.000-0.034) ng/mL Total Protein 6.4 (6.3-8.2) g/dL Albumin 3.5 (3.5-5.0) g/dL Urine Color Urine Appearance (Clear) Urine pH (5.0-8.0) Ur Specific [place] (1.001-1.035) Urine Protein (Negative) Urine Glucose (UA) (Negative) Urine Ketones (Negative) Urine Blood (Negative) Urine Nitrite (Negative) Urine Bilirubin (Negative) Urine Urobilinogen (<2.0) mg/dL Ur Leukocyte Esterase (Negative) Urine RBC (0-5) /hpf Urine WBC (0-5) /hpf Ur Squamous Epith Cells (0-4) /hpf Urine Bacteria (None) /hpf Hyaline Casts (0-2) /lpf Urine Mucus (None) /hpf Urine Opiates Screen (NotDetected) Ur Oxycodone Screen (NotDetected) Urine Methadone Screen (NotDetected) Ur Propoxyphene Screen (NotDetected) Ur Barbiturates Screen (NotDetected) U Tricyclic Antidepress (NotDetected) Ur Phencyclidine Scrn (NotDetected) Ur Amphetamines Screen (NotDetected) U Methamphetamines Scrn (NotDetected) U Benzodiazepines Scrn (NotDetected) Urine Cocaine Screen (NotDetected) U Marijuana (THC) Screen (NotDetected) Coronavirus (PCR) (Not Detectd) 04/10/21 04/11/21 04/11/21 Range/Units 22:15 04:59 05:00 WBC (3.8-10.6) k/uL RBC (3.80-5.40) m/uL Hgb (11.4-16.0) gm/dL Hct (34.0-46.0) % MCV (80.0-100.0) fL MCH (25.0-35.0) pg MCHC (31.0-37.0) g/dL RDW (11.5-15.5) % Plt Count (150-450) k/uL MPV Neutrophils % % Lymphocytes % % Monocytes % % Eosinophils % % Basophils % % Neutrophils # (1.3-7.7) k/uL Lymphocytes # (1.0-4.8) k/uL Monocytes # (0-1.0) k/uL Eosinophils # (0-0.7) k/uL Basophils # (0-0.2) k/uL Sodium (137-145) mmol/L Potassium (3.5-5.1) mmol/L Chloride (98-107) mmol/L Carbon Dioxide (22-30) mmol/L Anion Gap mmol/L BUN (7-17) mg/dL Creatinine (0.52-1.04) mg/dL Est GFR (CKD-EPI)AfAm (>60 ml/min/1.73 sqM) Est GFR (CKD-EPI)NonAf (>60 ml/min/1.73 sqM) Glucose (74-99) mg/dL POC Glucose (mg/dL) 82 (75-99) mg/dL POC Glu Pot Maker ID Keyla Brock Calcium (8.4-10.2) mg/dL Total Bilirubin (0.2-1.3) mg/dL AST (14-36) U/L ALT (4-34) U/L Alkaline Phosphatase (38-126) U/L Troponin I (0.000-0.034) ng/mL Total Protein (6.3-8.2) g/dL Albumin (3.5-5.0) g/dL Urine Color Yellow Urine Appearance Cloudy H (Clear) Urine pH 6.0 (5.0-8.0) Ur Specific [place] 1.018 (1.001-1.035) Urine Protein 1+ H (Negative) Urine Glucose (UA) Negative (Negative) Urine Ketones Negative (Negative) Urine Blood Small H (Negative) Urine Nitrite Positive H (Negative) Urine Bilirubin Negative (Negative) Urine Urobilinogen <2.0 (<2.0) mg/dL Ur Leukocyte Esterase Large H (Negative) Urine RBC 4 (0-5) /hpf Urine WBC 177 H (0-5) /hpf Ur Squamous Epith Cells 2 (0-4) /hpf Urine Bacteria Few H (None) /hpf Hyaline Casts 4 H (0-2) /lpf Urine Mucus Rare H (None) /hpf Urine Opiates Screen Detected H (NotDetected) Ur Oxycodone Screen Detected H (NotDetected) Urine Methadone Screen Not Detected (NotDetected) Ur Propoxyphene Screen Not Detected (NotDetected) Ur Barbiturates Screen Not Detected (NotDetected) U Tricyclic Antidepress Detected H (NotDetected) Ur Phencyclidine Scrn Not Detected (NotDetected) Ur Amphetamines Screen Not Detected (NotDetected) U Methamphetamines Scrn Not Detected (NotDetected) U Benzodiazepines Scrn Detected H (NotDetected) Urine Cocaine Screen Not Detected (NotDetected) U Marijuana (THC) Screen Not Detected (NotDetected) Coronavirus (PCR) Not Detected (Not Detectd) - EKG Data -: EKG Interpreted by Me EKG shows normal: sinus rhythm, axis (Normal), intervals (FL interval 182 ms, QRS duration 92 ms, both normal. QTC 517 ms, prolonged.), QRS complexes (Possible old inferior infarct.), ST-T waves (Normal) Rate: normal (Rate 63 bpm) Disposition Clinical Impression: ALICIA (acute kidney injury), Altered mental status Disposition: ADMITTED IP TO THIS HOSP Condition: Stable Is patient prescribed a controlled substance at d/c from ED?: No
[2021-04-10 22:18] LABS: Glucose,Whole Blood 82 mg/dL (75-99)
[2021-04-10 22:29] LABS: Basophils % (A) 0 %; Eosinophils # (A) 0.1 k/uL (0-0.7); Eosinophils % (A) 2 %; HCT 25.5 % (34.0-46.0); HGB 8.2 gm/dL (11.4-16.0); Lymphocytes # (A) 1.3 k/uL (1.0-4.8); Lymphocytes % (A) 38 %; MCH 31.7 pg (25.0-35.0); MCHC 32.2 g/dL (31.0-37.0); MCV 98.4 fL (80.0-100.0); Mean Platelet Volume 7.6; Monocytes # (A) 0.2 k/uL (0-1.0); Monocytes % (A) 6 %; Neutrophils # (A) 1.7 k/uL (1.3-7.7); Neutrophils % (A) 49 %; Platelet Count 295 k/uL (150-450); RBC 2.59 m/uL (3.80-5.40); RDW 14.1 % (11.5-15.5); WBC 3.5 k/uL (3.8-10.6)
--- NOTE | 2021-04-10 22:34 | XR ---
EXAMINATION TYPE: XR chest 1V portable DATE OF EXAM: 04/10/2021 COMPARISON: NONE HISTORY: Altered mental status TECHNIQUE: Single view FINDINGS: Heart and mediastinum are normal. Lungs are clear of infiltrate. There are chest leads. Cos tophrenic angles are clear. Bony thorax is intact. IMPRESSION: Normal chest. No change.
[2021-04-10 22:45] LABS: Albumin 3.5 g/dL (3.5-5.0); Potassium 3.4 mmol/L (3.5-5.1); Total Bilirubin 0.7 mg/dL (0.2-1.3); Total Protein 6.4 g/dL (6.3-8.2)
[2021-04-11 05:58] LABS: Appearance,Urine Cloudy (Clear); Bacteria,Urine Few /hpf; Bilirubin,Urine Negative (Negative); Blood,Urine Small (Negative); Color,Urine Yellow; Glucose,Urine (UA) Negative (Negative); Hyaline Casts,Urine 4 /lpf (0-2); Ketones,Urine Negative (Negative); Leukocyte Esterase,Urine Large (Negative); Mucus,Urine Rare /hpf; Nitrite,Urine Positive (Negative); Protein,Urine 1+ (Negative); RBC,Urine 4 /hpf (0-5); Specific Gravity,Urine 1.018 (1.001-1.035); Squamous Epithelial Cell,Urine 2 /hpf (0-4); Urobilinogen,Urine <2.0 mg/dL (<2.0); WBC,Urine 177 /hpf (0-5)
[2021-04-11 06:27] LABS: Amphetamine Screen,Urine Not Detected (NotDetected); Barbiturate Screen,Urine Not Detected (NotDetected); Benzodiazepines Screen,Urine Detected (NotDetected); Cocaine Screen,Urine Not Detected (NotDetected); Methadone Screen, Urine Not Detected (NotDetected); Opiate Screen,Urine Detected (NotDetected); Oxycodone Screen, Urine Detected (NotDetected); Phencyclidine Screen,Urine Not Detected (NotDetected); Tricyclic Antidepressant,Urine Detected (NotDetected); Urn Cannabinoid Scrn Not Detected (NotDetected)
[2021-04-11] MEDS ORDERED: NALOXONE 0.4 MG/ML 1 ML VIAL IV PRN (07:15)
[2021-04-11] MEDS ORDERED: ALBUTEROL NEBULIZED 2.5 MG/3 ML INHALATION PRN (07:21)
[2021-04-11] MEDS: DULoxetine HCL 60 MG CAPSULE.DR PO SCH (08:28)
[2021-04-11] MEDS: FOLIC ACID 1 MG TAB PO SCH (08:28)
[2021-04-11] MEDS: SODIUM CHLORIDE 0.9% 1,000 ML IV SCH ×2 (08:28→20:48)
[2021-04-11] MEDS: SODIUM BICARBONATE TAB 650 MG TAB PO SCH ×2 (08:28→20:52)
[2021-04-11] MEDS: DICYCLOMINE 20 MG TAB PO SCH ×3 (08:28→20:52)
[2021-04-11] MEDS: MAGNESIUM OXIDE 400 MG TAB PO SCH ×2 (08:28→20:52)
[2021-04-11] MEDS: FAMOTIDINE 20 MG TAB PO SCH ×2 (08:28→20:51)
[2021-04-11] MEDS ORDERED: POTASSIUM CHLORIDE ER 20 MEQ TAB.ER PO STA (10:45)
--- NOTE | 2021-04-11 11:35 | CONS ---
CONSULTATION REASON FOR CONSULTATION: Renal failure. HISTORY OF PRESENT ILLNESS: Patient is a 65-year-old female who was brought into the hospital by her son for altered mentation. It appears that patient had been weak and had had multiple falls at home. She states that her son felt she was not able to take care of herself. Patient admitted to decreased oral intake over the past few weeks. Patient has a left ankle fracture and she states that she has a fracture in the back as well and wears a back brace. She denies any previous history of kidney diseases. No history of use of NSAIDs. Her serum creatinine was 2.36 on admission and previous creatinine was 1.1 on 03/10/2021. Home medications do not include any NSAIDs or MARGIE inhibitors or diuretics. Patient is maintained on sodium bicarb 650 mg b.i.d. Blood pressure has not been significantly low; systolic blood pressure around 120 mmHg. Patient is currently maintained on IV fluids. Chest x-ray did not show any evidence of pulmonary vascular congestion or infiltrates. Patient denies any fever or chills, nausea, vomiting or abdominal pain. UA is suggestive of urinary tract infection. PAST MEDICAL HISTORY: Significant for COPD, history of CVA/TIA, fibromyalgia, hypertension, history of lupus, TIA, short-bowel syndrome, history of pancreatic insufficiency, history of multiple sclerosis, colon cancer, details not known, bipolar disorder, depression, PTSD. PAST SURGICAL HISTORY: Past surgical history includes appendectomy, back surgery, , right hemicolectomy and small bowel resection as well. SOCIAL HISTORY: Patient is a daily smoker. MEDICATIONS: Medications prior to admission included Cymbalta, folic acid, magnesium oxide, trazodone, Bentyl, ProAir, sodium bicarb, Pepcid, Imodium, Seroquel, Xanax, Neurontin, [place]. ALLERGIES: ALLERGIES include ALCOHOL which causes vomiting, ASPIRIN, DEPAKOTE, TORADOL, PENICILLIN, SHELLFISH, STRAWBERRIES, SULFA, ERYTHROMYCIN. REVIEW OF SYSTEMS: As per HPI. Other systems negative. PHYSICAL EXAMINATION: Patient is comfortable, awake, not in any acute distress. She is answering questions appropriately. She is alert and oriented x3. Blood pressure is 154/79, heart rate 70 per minute. She is afebrile. EXAMINATION OF THE HEART: S1 and S2. EXAMINATION OF LUNGS: Decreased breath sounds at the bases. Abdomen is soft, non-tender. Examination of lower extremities shows bilateral edema, mostly in the ankles, 1+ bilaterally. VERIFICATION SPECIALIST EXAM: Otherwise grossly intact. LABS: Sodium 137, potassium 3.4, chloride 103. CO2 is 21, BUN 31, creatinine 2.36, hemoglobin 8.2 g/dL. UA shows WBCs 177, leukocyte esterase large. ASSESSMENT: 1. Acute kidney injury; appears to be prerenal and secondary to underlying urinary tract infection. Blood pressure is currently not low. I will continue with IV fluids. Chest x-ray does not show any evidence of pulmonary vascular congestion. Patient does have edema of lower extremities, but I feel that is more localized, associated with underlying fracture. Patient also had a CT angiogram done on 03/07/2021 during her last admission. There may have been some remnant of acute kidney injury from that as well. Creatinine was 1.1 on 03/10/2021. It may still have been a bit early for the creatinine to peak for contrast nephropathy at that time. Currently patient is nonoliguric. I will continue with IV fluids and repeat labs in a.m. Avoid any nephrotoxic agents. 1. Hypokalemia associated with decreased oral intake. Will replace. 2. Anemia. Rule out iron deficiency. 3. Mental status changes, possibly related to underlying urinary tract infection and volume depletion and acute kidney injury; seems to have improved now. 4. Pyuria. Rule out urinary tract infection. PLAN: Check urine cultures. Continue IV fluids. Repeat labs in a.m. Replace potassium. Avoid any nephrotoxic agents. Continue with the sodium bicarb for now. Thank you for this consultation. Will continue to follow the patient with you during her hospitalization. MMODL / IJN: [id number] /
--- NOTE | 2021-04-11 13:37 | US ---
EXAMINATION TYPE: US kidneys/renal and bladder DATE OF EXAM: 04/11/2021 COMPARISON: 10/30/2020 CLINICAL HISTORY: rf. renal failure EXAM MEASUREMENTS: Right Kidney: 9.5 x 4.0 x 3.9 cm Left Kidney: 8.8 x 4.4 x 4.6 cm patient had to stop test several times due to back spasms Right Kidney: cortical thinning , no hydronephrosis or nephrolithiasis Left Kidney: cortical thinning , no hydronephrosis or nephrolithiasis Bladder: wnl IMPRESSION: Limited exam as noted above demonstrates bilateral cortical thinning suggestive of chronic medical re nal disease. No hydronephrosis as visualized.
--- NOTE | 2021-04-11 16:22 | P.HPIM ---
History of Present Illness H&P Date: 04/11/21 Chief Complaint: Altered mental status 65-year-old woman, history of COPD, hypertension, CVA/TIA, brought for evaluation of altered mental status; patient is a very poor historian so all the history is obtained from records. The patient states that she has felt sleepy all day. She denies other complaints. No headache, chest pain, abdominal pain, dyspnea, fever or chills. The patient states she does have some aching in her foot, where she was diagnosed with recent fracture. In the ED it did. Patient was taking Xanax and [place] over and beyond prescribed doses Patient was worked up in ED which revealed a low WBC of 3.5, hemoglobin 8.2 and platelet count of 295, chemical profile reveals sodium 137, potassium 3.4, BUN/creatinine of 31/2.36 Urine drug screen is positive for opiates, oxycodone and benzodiazepines; UA reveals WBCs, bacteria large amount of leukocyte esterase and nitrates Review of Systems REVIEW OF SYSTEMS: CONSTITUTIONAL: No fever, no malaise, no fatigue. HEENT: No recent visual problems or hearing problems. Denied any sore throat. CARDIOVASCULAR: No chest pain, orthopnea, PND, no palpitations, no syncope. PULMONARY: No shortness of breath, no cough, no hemoptysis. GASTROINTESTINAL: No diarrhea, no nausea, no vomiting, no abdominal pain. NEUROLOGICAL: No headaches, no weakness, no numbness. HEMATOLOGICAL: Denies any bleeding or petechiae. GENITOURINARY: Denies any burning micturition, frequency, or urgency. MUSCULOSKELETAL/RHEUMATOLOGICAL: Denies any joint pain, swelling, or any muscle pain. ENDOCRINE: Denies any polyuria or polydipsia. The rest of the 14-point review of systems is negative. Past Medical History Past Medical History: Cancer, COPD, CVA/TIA, Fibromyalgia, Hypertension Additional Past Medical History / Comment(s): Lupus, TIA, right hand tendons severed, closed head injury, multiple sclerosis, short bowel syndrome, pancreatic insufficiency, bowel cancer History of Any Multi-Drug Resistant Organisms: C-DIFF Date of last positivie culture/infection: 2014 MDRO Source:: patient Past Surgical History: Appendectomy, Back Surgery, Section, Orthopedic Surgery Additional Past Surgical History / Comment(s): stomach cancer, right hemicolectomy and small bowel resection Past Anesthesia/Blood Transfusion Reactions: No Reported Reaction Past Psychological History: Anxiety, Bipolar, Depression, PTSD Smoking Status: Current every day smoker Past Alcohol Use History: None Reported Past Drug Use History: None Reported - Past Family History Father Additional Family Medical History / Comment(s): Father has history of diabetes and stomach problems. Mother Additional Family Medical History / Comment(s): Mother has history of diabetes, coronary artery disease and COPD. Sister(s) Additional Family Medical History / Comment(s): Patient has sisters all have female problems. She does state there is breast cancer history in her aunt. Son(s) Family Medical History: No Reported History Additional Family Medical History / Comment(s): Patient has one son with no major medical problems. Medications and Allergies Home Medications Medication Instructions Recorded Confirmed Type DULoxetine HCL [Cymbalta] 60 mg PO DAILY 05/24/17 04/10/21 History Folic Acid 1 mg PO DAILY 05/24/17 04/10/21 History Magnesium Oxide [Mag-Ox] 400 mg PO BID 05/24/17 04/10/21 History traZODone HCL 150 mg PO HS 02/27/18 04/10/21 History Dicyclomine [Bentyl] 20 mg PO TID 07/10/18 04/10/21 History Albuterol Sulfate [Proair Hfa] 2 puff INHALATION RT-Q4H PRN 10/20/19 04/10/21 History Sodium Bicarbonate Tab 650 mg PO BID 10/20/19 04/10/21 History Famotidine [Pepcid] 20 mg PO BID 11/06/19 04/10/21 History Loperamide HCl [Imodium A-D] 2 mg PO TID PRN 11/06/19 04/10/21 History QUEtiapine [SEROquel] 50 mg PO HS 06/22/20 04/10/21 History Ergocalciferol (Vitamin D2) 1,250 mcg PO Q7D 01/31/21 04/10/21 History [Drisdol (50,000 Iu)] HYDROcodone/APAP 5-325MG [[place] 1 tab PO BID PRN #6 tab 03/10/21 04/10/21 Rx 5-325] ALPRAZolam [Xanax] 0.25 mg PO HS 04/10/21 04/10/21 History Gabapentin [Neurontin] 300 mg PO TID PRN 04/10/21 04/10/21 History Allergies Allergy/AdvReac Type Severity Reaction Status Date / Time alcohol Allergy Vomiting Verified 04/10/21 21:58 aspirin Allergy Unknown Verified 04/10/21 21:58 divalproex sodium Allergy Unknown Verified 04/10/21 21:58 [From Depakote] erythromycin base Allergy Unknown Verified 04/10/21 21:58 ketorolac [From Toradol] Allergy Unknown Verified 04/10/21 21:58 Penicillins Allergy Unknown Verified 04/10/21 21:58 shellfish derived [Shellfish] Allergy Unknown Verified 04/10/21 21:58 strawberry Allergy Unknown Verified 04/10/21 21:58 Sulfa (Sulfonamide Allergy Unknown Verified 04/10/21 21:58 Antibiotics) Physical Exam Vitals: Vital Signs Temp Pulse Resp BP Pulse Ox 04/11/21 04:59 70 17 123/68 99 04/10/21 21:11 98 F 67 16 92 L Intake and Output 04/10/21 04/11/21 04/11/21 22:59 06:59 14:59 Other: Weight 56.245 kg PHYSICAL EXAMINATION: GENERAL: The patient is alert and oriented x3, not in any acute distress. Well developed, well nourished. HEENT: Pupils are round and equally reacting to light. EOMI. No scleral icterus. No conjunctival pallor. Normocephalic, atraumatic. No pharyngeal erythema. No thyromegaly. CARDIOVASCULAR: S1 and S2 present. No murmurs, rubs, or gallops. PULMONARY: Chest is clear to auscultation, no wheezing or crackles. ABDOMEN: Soft, nontender, nondistended, normoactive bowel sounds. No palpable organomegaly. MUSCULOSKELETAL: No joint swelling or deformity. EXTREMITIES: No cyanosis, clubbing, or pedal edema. NEUROLOGICAL: Gross neurological examination did not reveal any focal deficits. SKIN: No rashes. Results CBC & Chem 7: 04/10/21 22:06 04/10/21 22:06 Labs: Abnormal Lab Results - Last 24 Hours (Table) 04/10/21 04/10/21 04/11/21 Range/Units 22:06 22:06 05:00 WBC 3.5 L (3.8-10.6) k/uL RBC 2.59 L (3.80-5.40) m/uL Hgb 8.2 L (11.4-16.0) gm/dL Hct 25.5 L (34.0-46.0) % Potassium 3.4 L (3.5-5.1) mmol/L Carbon Dioxide 21 L (22-30) mmol/L BUN 31 H (7-17) mg/dL Creatinine 2.36 H (0.52-1.04) mg/dL Urine Appearance Cloudy H (Clear) Urine Protein 1+ H (Negative) Urine Blood Small H (Negative) Urine Nitrite Positive H (Negative) Ur Leukocyte Esterase Large H (Negative) Urine WBC 177 H (0-5) /hpf Urine Bacteria Few H (None) /hpf Hyaline Casts 4 H (0-2) /lpf Urine Mucus Rare H (None) /hpf Urine Opiates Screen Detected H (NotDetected) Ur Oxycodone Screen Detected H (NotDetected) U Tricyclic Antidepress Detected H (NotDetected) U Benzodiazepines Scrn Detected H (NotDetected) Assessment and Plan Assessment: 1. Altered mental status; possible metabolic encephalopathy secondary to dehydration/UTI - We will treat with IV fluids to improve hydration and antibiotic therapy 2. Acute renal injury/dehydration; IV fluids in form of normal saline; we will monitor strict DANYELLE's, daily weights, renal function and electrolytes; avoid nephrotoxic agents 3. UTI; start patient on Rocephin 1 g IV daily; we will get blood and urine cultures and adjust therapy according 4. Overuse of prescribed medications; as indicated patient is taking multiple medications in form of Xanax, Cymbalta, Neurontin, Seroquel and trazodone; we will hold off till mental status improves; plan to adjust dosages prior to discharge 5. COPD/asthma; not in exacerbation; we will continue with home inhaler therapy 6. Depression/anxiety; patient takes Xanax, Cymbalta, Neurontin, Seroquel and trazodone at home; we will hold off these medications until mental status improves DVT prophylaxis; SCDs/subcu heparin CODE STATUS; full code
[2021-04-11] MEDS: HEPARIN SODIUM,PORCINE/PF 5,000 UNIT/0.5 ML SYRINGE SQ SCH (20:51)
[2021-04-11] MEDS: QUEtiapine 50 MG TAB PO SCH (20:52)
[2021-04-12 07:16] LABS: African American GFR (CKD) 44 (>60 ml/min/1.73 sqM); Anion Gap 10 mmol/L; Blood Urea Nitrogen 19 mg/dL (7-17); Calcium 8.7 mg/dL (8.4-10.2); Carbon Dioxide 22 mmol/L (22-30); Chloride 104 mmol/L (98-107); Glucose 89 mg/dL (74-99); Non-African American GFR(CKD) 38 (>60 ml/min/1.73 sqM); Potassium 3.2 mmol/L (3.5-5.1); Sodium 136 mmol/L (137-145)
[2021-04-12] MEDS: MAGNESIUM OXIDE 400 MG TAB PO SCH ×2 (07:44→21:27)
[2021-04-12] MEDS: DULoxetine HCL 60 MG CAPSULE.DR PO SCH (07:44)
[2021-04-12] MEDS: FAMOTIDINE 20 MG TAB PO SCH (07:44)
[2021-04-12] MEDS: FOLIC ACID 1 MG TAB PO SCH (07:44)
[2021-04-12] MEDS: HEPARIN SODIUM,PORCINE/PF 5,000 UNIT/0.5 ML SYRINGE SQ SCH ×2 (07:45→21:27)
[2021-04-12 07:53] LABS: Basophils % (A) 0 %; Eosinophils % (A) 1 %; HCT 23.6 % (34.0-46.0); HGB 7.8 gm/dL (11.4-16.0); Lymphocytes # (A) 0.8 k/uL (1.0-4.8); Lymphocytes % (A) 22 %; MCH 32.1 pg (25.0-35.0); MCHC 33.1 g/dL (31.0-37.0); Mean Platelet Volume 8.1; Monocytes # (A) 0.2 k/uL (0-1.0); Monocytes % (A) 6 %; Neutrophils # (A) 2.6 k/uL (1.3-7.7); Neutrophils % (A) 69 %; Platelet Count 301 k/uL (150-450); RBC 2.43 m/uL (3.80-5.40); RDW 14.1 % (11.5-15.5); WBC 3.8 k/uL (3.8-10.6)
[2021-04-12] MEDS: POTASSIUM CHLORIDE ER 20 MEQ TAB.ER PO SCH ×2 (09:29→13:18)
[2021-04-12] MEDS: DICYCLOMINE 20 MG TAB PO SCH ×3 (09:30→21:27)
[2021-04-12] MEDS: GABAPENTIN 300 MG CAP PO PRN ×2 (11:17→17:51)
--- NOTE | 2021-04-12 11:48 | P.PN ---
Subjective Progress Note Date: 04/12/21 HISTORY OF PRESENT ILLNESS 65-year-old woman, history of COPD, hypertension, CVA/TIA, brought for evaluat ion of altered mental status; patient is a very poor historian so all the history is obtained from records. The patient states that she has felt sleepy all day. She denies other complaints. No headache, chest pain, abdominal pain, dyspnea, fever or chills. The patient states she does have some aching in her foot, where she was diagnosed with recent fracture. In the ED it did. Patient was taking Xanax and [place] over and beyond prescribed doses Patient was worked up in ED which revealed a low WBC of 3.5, hemoglobin 8.2 and platelet count of 295, chemical profile reveals sodium 137, potassium 3.4, BUN/creatinine of 31/2.36 Urine drug screen is positive for opiates, oxycodone and benzodiazepines; UA reveals WBCs, bacteria large amount of leukocyte esterase and nitrates 04/12: Patient is found resting in bed. She has been afebrile, heart rate 72, blood pressure 160/69, pulse ox Repeat blood work reveals WBC 3.8, hemoglobin 7.8, platelet count 301. Sodium 136, potassium 3.2 and will be replaced, chloride 104, CO2 22, BUN 19 and creatinine 1.43. Urine culture is in process. Patient has been seen by nephrology with plan to continue IV fluids and repeat lab work, replace potassiu m and avoid nephrotoxic agents, continue sodium bicarb as of yesterday. Patient is complaining of pain to the left foot secondary to multiple metatarsal head fractures for which she was seen in the emergency center on 04/03. Patient states that she has a boot to wear for this. Discussed addiction to [place] and Xanax and at this point, patient is agreeable to go to rehab for substance abuse. Consult placed with social work to help her make arrangements to transfer or be admitted to rehab facility. REVIEW OF SYSTEMS Constitutional: No fever, no chills, no night sweats. No weight change. No weakness, fatigue or lethargy. No daytime sleepiness. EENT: No headache. No blurred vision or double vision, no loss of vision. No loss of Hearing, no ringing in the ears, no dizziness. No nasal drainage or congestion. No epistaxis. No sore throat. Lungs: No shortness of breath, cough, no sputum production. No wheezing. Cardiovascular: No chest pain, no lower extremity edema. No palpitations. No paroxysmal nocturnal dyspnea. No orthopnea. No lightheadedness or dizziness. No syncopal episodes. Abdominal: No abdominal pain. No nausea, vomiting. No diarrhea. No constipation. No bloody or tarry stools. No loss of appetite. Genitourinary: No dysuria, increased frequency, urgency. No urinary retention. Musculoskeletal: No myalgias. No muscle weakness, no gait dysfunction, no frequent falls. No back pain. No neck pain. Complains of pain left foot. Integumentary: No wounds, no lesions. No rash or pruritus. No unusual bruising. No change in hair or nails. Neurologic: No aphasia. No facial droop. No change in mentation. No head injury. No headache. No paralysis. No paresthesia. Psychiatric: No depression. No anxiety. No mood swings. Endocrine: No abnormal blood sugars. PHYSICAL EXAMINATION General: 65-year-old female laying down in bed in minimal distress. HEENT: Head is atraumatic, normocephalic, pupils were equal round reactive to light and recommendation, extraocular muscle movement were intact, sclera nonicteric, conjunctivae were pale, mucous membranes of the mouth are somewhat dry. Neck: Supple, no JVP, normal carotid upstroke bilaterally, no lymphadenopathy. Chest: Decreased breath sounds at the bases, few rhonchi, no expiratory wheezes, no chest wall tenderness, no intercostal retractions. Heart: First heart sound is normal, second heart sounds normal Abdomen: Soft, nontender, nondistended, positive bowel sounds. Extremities: There is increased edema to both lower extremities with chrnic skin changes dorsalis pedis +2 bilaterally, Neurologic examination: Patient is awake alert and oriented X3, cranial nerves II-12 appear grossly intact, muscle power were 5 out of 5 in upper extremities and 5 out of 5 in bilateral lower extremities, deep tendon reflexes normal bilaterally. ASSESSMENT AND PLAN 1. Toxic metabolic encephalopathy secondary to medication effect, dehydration, UTI. [place] and Xanax are on hold. Continue Rocephin, await urine culture, continue IV fluids 0.9 normal saline at 75 mL per hour. 2. Acute renal injury and dehydration. Consult with nephrology appreciated. Continue IV fluids, monitor DANYELLE's, daily weights, renal function and electrolytes; avoid nephrotoxic agents 3. UTI. Continue patient on Rocephin 1 g IV daily; we will get blood and urine cultures and adjust therapy according. Monitor urine culture 4. Overuse of prescribed medications. Social work consult for substance abuse rehab. 5. COPD without exacerbation. Continue Ventolin inhaler as needed. 6. Recurrent depression, generalized anxiety disorder and insomnia. Continue Cymbalta 60 mg daily, gabapentin 300 mg 3 times daily, Seroquel 50 mg at bedtime. 7. Chronic kidney disease stage III. Avoid nephrotoxic agents. 8. History of aplastic anemia, stable. 9. Gastroesophageal reflux disease. Continue Pepcid twice daily. 10. 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 Continue loperamide 2 mg orally 3 times every day. Continue with Zenpep twice every day. 11. 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 Continue gabapentin 300 mg orally 3 times every day, Hold [place]. 12. Insomnia. Continue patient on Seroquel XR 150 mg orally once every day. 13. vitamin D deficiency. Continue vitamin D2 50,000 units twice a month. 14. Recurrent depression. Continue patient on Cymbalta 90 mg orally once every day. 15. DVT prophylaxis. Heparin 5000 units subcutaneously every 12 hours. 16. GI prophylaxis. Continue Pepcid 20 mg orally twice every day. DISCHARGE PLAN TBD. Possible discharge in next 24 hours. Social work consult regarding s ubstance abuse rehab.. Impression and plan of care have been directed as dictated by the signing ph ysician. Annalisa Delcid nurse practitioner acting as scribe for signing physician. Objective - Vital Signs Vital signs: Vital Signs Temp 98 F 04/12/21 07:00 Pulse 72 04/12/21 07:00 Resp 14 04/12/21 07:00 BP 160/69 04/12/21 07:00 Pulse Ox 100 04/12/21 07:00 Intake & Output 04/11/21 04/12/21 04/12/21 18:59 06:59 18:59 Weight 56.245 kg Other: # Voids 1 # Bowel Movements 1 - Labs CBC & Chem 7: 04/12/21 06:30 04/12/21 06:30 Labs: Abnormal Lab Results - Last 24 Hours (Table) 04/12/21 04/12/21 Range/Units 06:30 06:30 RBC 2.43 L (3.80-5.40) m/uL Hgb 7.8 L (11.4-16.0) gm/dL Hct 23.6 L (34.0-46.0) % Lymphocytes # 0.8 L (1.0-4.8) k/uL Sodium 136 L (137-145) mmol/L Potassium 3.2 L (3.5-5.1) mmol/L BUN 19 H (7-17) mg/dL Creatinine 1.43 H (0.52-1.04) mg/dL Microbiology - Last 24 Hours (Table) 04/11/21 05:00 Urine Culture - Preliminary Urine,Voided
[2021-04-12] MEDS: SODIUM BICARBONATE TAB 650 MG TAB PO SCH ×2 (13:18→21:27)
[2021-04-12] MEDS: SODIUM CHLORIDE 0.9% 1,000 ML IV SCH (13:19)
--- NOTE | 2021-04-12 18:59 | PN ---
PROGRESS NOTE Patient is seen for followup for acute kidney injury, mostly prerenal and associated with underlying urinary tract infection. The patient is maintained on IV fluids and antibiotics. Renal function has improved with creatinine down from 2.36 to 1.43 today. The patient is comfortable, awake, she is not in any acute distress. PHYSICAL EXAMINATION: Blood pressure was 151/77, heart rate 72 per minute, she is afebrile. Examination of the heart S1, S2. Examination of the lungs, bilateral breath sounds are heard. Abdomen is soft, nontender. Examination of lower extremities shows edema mostly in the ankles bilaterally with some redness noted which is not new and chronic skin changes seen as well. The patient has fracture on the left foot with multiple metatarsal head fractures. ASSESSMENT: 1. Urinary tract infection with urine culture growing Gram-negative bacilli, maintained on IV antibiotics. 2. Metabolic acidosis, maintained on oral sodium bicarb. 3. Hypokalemia status post replacement. PLAN: Continue with IV fluids. Repeat labs in a.m. MMODL / IJN: [id number] /
[2021-04-12] MEDS: QUEtiapine 50 MG TAB PO SCH (21:27)
[2021-04-13] MEDS: SODIUM CHLORIDE 0.9% 1,000 ML IV SCH ×2 (00:27→07:13)
[2021-04-13] MEDS: MAGNESIUM OXIDE 400 MG TAB PO SCH (08:14)
[2021-04-13] MEDS: DULoxetine HCL 60 MG CAPSULE.DR PO SCH (08:14)
[2021-04-13] MEDS: FOLIC ACID 1 MG TAB PO SCH (08:14)
[2021-04-13] MEDS: HEPARIN SODIUM,PORCINE/PF 5,000 UNIT/0.5 ML SYRINGE SQ SCH (08:14)
[2021-04-13] MEDS: SODIUM BICARBONATE TAB 650 MG TAB PO SCH (08:15)
[2021-04-13] MEDS: DICYCLOMINE 20 MG TAB PO SCH ×2 (08:15→15:55)
[2021-04-13] MEDS ORDERED: FAMOTIDINE 20 MG TAB PO SCH (09:00)
[2021-04-13] MEDS ORDERED: CEFDINIR 300 MG CAP PO SCH (09:00)
[2021-04-13 09:18] VITALS: RESP 16
--- NOTE | 2021-04-13 11:30 | P.PN ---
Subjective Progress Note Date: 04/13/21 HISTORY OF PRESENT ILLNESS 65-year-old woman, history of COPD, hypertension, CVA/TIA, brought for evaluat ion of altered mental status; patient is a very poor historian so all the history is obtained from records. The patient states that she has felt sleepy all day. She denies other complaints. No headache, chest pain, abdominal pain, dyspnea, fever or chills. The patient states she does have some aching in her foot, where she was diagnosed with recent fracture. In the ED it did. Patient was taking Xanax and [place] over and beyond prescribed doses Patient was worked up in ED which revealed a low WBC of 3.5, hemoglobin 8.2 and platelet count of 295, chemical profile reveals sodium 137, potassium 3.4, BUN/creatinine of 31/2.36 Urine drug screen is positive for opiates, oxycodone and benzodiazepines; UA reveals WBCs, bacteria large amount of leukocyte esterase and nitrates 04/12: Patient is found resting in bed. She has been afebrile, heart rate 72, blood pressure 160/69, pulse ox Repeat blood work reveals WBC 3.8, hemoglobin 7.8, platelet count 301. Sodium 136, potassium 3.2 and will be replaced, chloride 104, CO2 22, BUN 19 and creatinine 1.43. Urine culture is in process. Patient has been seen by nephrology with plan to continue IV fluids and repeat lab work, replace potassiu m and avoid nephrotoxic agents, continue sodium bicarb as of yesterday. Patient is complaining of pain to the left foot secondary to multiple metatarsal head fractures for which she was seen in the emergency center on 04/03. Patient states that she has a boot to wear for this. Discussed addiction to [place] and Xanax and at this point, patient is agreeable to go to rehab for substance abuse. Consult placed with social work to help her make arrangements to transfer or be admitted to rehab facility. 04/13: Patient met with social work yesterday but was undecided about going to rehab. She wants to further discuss with son and mother. She has been afebrile, heart rate 69, blood pressure 127/73 and pulse ox 99% on room air. Urine culture remains pending. She is also off trazodone, [place] and Xanax. IV access has been lost so IV Rocephin and change to oral. Patient will be discharged once arrangements are completed. REVIEW OF SYSTEMS Constitutional: No fever, no chills, no night sweats. No weight change. No weakness, fatigue or lethargy. No daytime sleepiness. EENT: No headache. No blurred vision or double vision, no loss of vision. No loss of Hearing, no ringing in the ears, no dizziness. No nasal drainage or congestion. No epistaxis. No sore throat. Lungs: No shortness of breath, cough, no sputum production. No wheezing. Cardiovascular: No chest pain, no lower extremity edema. No palpitations. No paroxysmal nocturnal dyspnea. No orthopnea. No lightheadedness or dizziness. No syncopal episodes. Abdominal: No abdominal pain. No nausea, vomiting. No diarrhea. No constipation. No bloody or tarry stools. No loss of appetite. Genitourinary: No dysuria, increased frequency, urgency. No urinary retention. Musculoskeletal: No myalgias. No muscle weakness, reports gait dysfunction due to foot fracture, no frequent falls. No back pain. No neck pain. Complains of pain left foot. Integumentary: No wounds, no lesions. No rash or pruritus. No unusual bruising. No change in hair or nails. Neurologic: No aphasia. No facial droop. No change in mentation. No head injury. No headache. No paralysis. No paresthesia. Psychiatric: No depression. No anxiety. No mood swings. Endocrine: No abnormal blood sugars. PHYSICAL EXAMINATION General: 65-year-old female laying down in bed in no distress. HEENT: Head is atraumatic, normocephalic, pupils were equal round, sclera nonicteric, conjunctivae were pale, mucous membranes of the mouth are somewhat dry. Neck: Supple, no JVP, normal carotid upstroke bilaterally, no lymphadenopathy. Chest: Decreased breath sounds at the bases, few rhonchi, no expiratory wheezes, no chest wall tenderness, no intercostal retractions. Heart: First heart sound is normal, second heart sounds normal Abdomen: Soft, nontender, nondistended, positive bowel sounds. Extremities: There is increased edema to both lower extremities with chrnic skin changes dorsalis pedis +2 bilaterally, Neurologic examination: Patient is awake alert and oriented X3, cranial nerves II-12 appear grossly intact. ASSESSMENT AND PLAN 1. Toxic metabolic encephalopathy secondary to medication effect, dehydration, UTI. Trazodone, [place] and Xanax are on hold. Continue antibiotics changed to oral, await urine culture, discontinue IV fluids. 2. Acute renal injury and dehydration. Consult with nephrology appreciated. Discontinue IV fluids; avoid nephrotoxic agents 3. UTI. Continue oral antibiotics; we will get blood and urine cultures and adjust therapy according. Monitor urine culture 4. Overuse of prescribed medications. Social work consult for substance abuse rehab. 5. COPD without exacerbation. Continue Ventolin inhaler as needed. 6. Recurrent depression, generalized anxiety disorder and insomnia. Continue Cymbalta 60 mg daily, gabapentin 300 mg 3 times daily, Seroquel 50 mg at bedtime. 7. Chronic kidney disease stage III. Avoid nephrotoxic agents. 8. History of aplastic anemia, stable. 9. Gastroesophageal reflux disease. Continue Pepcid twice daily. 10. 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 Continue loperamide 2 mg orally 3 times every day. Continue with Zenpep twice every day. 11. 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 Continue gabapentin 300 mg orally 3 times every day, Hold [place]. 12. Insomnia. Continue patient on Seroquel XR 150 mg orally once every day. 13. vitamin D deficiency. Continue vitamin D2 50,000 units twice a month. 14. Recurrent depression. Continue patient on Cymbalta 90 mg orally once every day. 15. DVT prophylaxis. Heparin 5000 units subcutaneously every 12 hours. 16. GI prophylaxis. Continue Pepcid 20 mg orally twice every day. DISCHARGE PLAN TBD. Social work consult regarding substance abuse rehab or subacute rehab Impression and plan of care have been directed as dictated by the signing physician. Annalisa Delcid nurse practitioner acting as scribe for signing physician. Objective - Vital Signs Vital signs: Vital Signs Temp 99.6 F 04/13/21 01:19 Pulse 69 04/13/21 01:19 Resp 17 04/13/21 01:19 BP 127/73 04/13/21 01:19 Pulse Ox 99 04/13/21 01:19 Intake & Output 04/12/21 04/13/21 04/13/21 18:59 06:59 18:59 Intake Total 440 Balance 440 Intake: Oral 240 Other 200 Other: Voiding Method Toilet Toilet # Voids 1 1 # Bowel Movements 2 1 - Labs CBC & Chem 7: 04/12/21 06:30 04/12/21 06:30 Labs: Microbiology - Last 24 Hours (Table) 04/11/21 05:00 Urine Culture - Preliminary Urine,Voided Gram Neg Bacilli
--- NOTE | 2021-04-13 11:32 | P.DS ---
Providers Date of admission: 04/11/21 07:15 Expected date of discharge: 04/13/21 Attending physician: Meseret Haq Consults: 04/11/21 07:20 Consult Physician Routine Consulting Provider: Justina Henderson Consult Reason/Comments: acute kidney injury Do you want consulting provider notified?: Yes Primary care physician: Meseret Haq Hospital Course: HISTORY OF PRESENT ILLNESS 65-year-old woman, history of COPD, hypertension, CVA/TIA, brought for evaluation of altered mental status; patient is a very poor historian so all the history is obtained from records. The patient states that she has felt sleepy all day. She denies other complaints. No headache, chest pain, abdominal pain, dyspnea, fever or chills. The patient states she does have some aching in her foot, where she was diagnosed with recent fracture. In the ED it did. Patient was taking Xanax and [place] over and beyond prescribed doses Patient was worked up in ED which revealed a low WBC of 3.5, hemoglobin 8.2 and platelet count of 295, chemical profile reveals sodium 137, potassium 3.4, BUN/creatinine of 31/2.36 Urine drug screen is positive for opiates, oxycodone and benzodiazepines; UA reveals WBCs, bacteria large amount of leukocyte esterase and nitrates 04/12: Patient is found resting in bed. She has been afebrile, heart rate 72, blood pressure 160/69, pulse ox Repeat blood work reveals WBC 3.8, hemoglobin 7.8, platelet count 301. Sodium 136, potassium 3.2 and will be replaced, chloride 104, CO2 22, BUN 19 and creatinine 1.43. Urine culture is in process. Patient has been seen by nephrology with plan to continue IV fluids and repeat lab work, replace potassium and avoid nephrotoxic agents, continue sodium bicarb as of yesterday. Patient is complaining of pain to the left foot secondary to multiple metatarsal head fractures for which she was seen in the emergency center on 04/03. Patient states that she has a boot to wear for this. Discussed addiction to [place] and Xanax and at this point, patient is agreeable to go to rehab for substance abuse. Consult placed with social work to help her make arrangements to transfer or be admitted to rehab facility. 04/13: Patient met with social work yesterday but was undecided about going to rehab. She wants to further discuss with son and mother. She has been afebrile, heart rate 69, blood pressure 127/73 and pulse ox 99% on room air. Urine culture remains pending. She is also off trazodone, [place] and Xanax. IV access has been lost so IV Rocephin and change to oral. Patient will be discharged once arrangements are completed. ASSESSMENT AND PLAN 1. Toxic metabolic encephalopathy secondary to medication effect, dehydration, UTI. 2. Acute renal injury and dehydration. 3. UTI. 4. Overuse of prescribed medications. 5. COPD without exacerbation. 6. Recurrent depression, generalized anxiety disorder and insomnia. 7. Chronic kidney disease stage III. 8. History of aplastic anemia, stable. 9. Gastroesophageal reflux disease. 10. 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 11. 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 12. Insomnia. 13. vitamin D deficiency. 14. Recurrent depression. DISCHARGE PLAN Subacute rehab at [facility] Impression and plan of care have been directed as dictated by the signing physician. Annalisa Delcid nurse practitioner acting as scribe for signing physician. Patient Condition at Discharge: Stable Plan - Discharge Summary New Discharge Prescriptions: New Cefdinir [Omnicef] 300 mg PO BID #10 cap Continue Magnesium Oxide [Mag-Ox] 400 mg PO BID Folic Acid 1 mg PO DAILY DULoxetine HCL [Cymbalta] 60 mg PO DAILY Dicyclomine [Bentyl] 20 mg PO TID Sodium Bicarbonate Tab 650 mg PO BID Albuterol Sulfate [Proair Hfa] 2 puff INHALATION RT-Q4H PRN PRN Reason: Shortness Of Breath Famotidine [Pepcid] 20 mg PO BID Loperamide HCl [Imodium A-D] 2 mg PO TID PRN PRN Reason: Diarrhea QUEtiapine [SEROquel] 50 mg PO HS Ergocalciferol (Vitamin D2) [Drisdol (50,000 Iu)] 1,250 mcg PO Q7D Changed Gabapentin [Neurontin] 300 mg PO TID PRN #9 cap PRN Reason: Pain Discontinued traZODone HCL 150 mg PO HS HYDROcodone/APAP 5-325MG [[place] 5-325] 1 tab PO BID PRN #6 tab PRN Reason: Pain ALPRAZolam [Xanax] 0.25 mg PO HS Discharge Medication List DULoxetine HCL [Cymbalta] 60 mg PO DAILY 05/24/17 [History] Folic Acid 1 mg PO DAILY 05/24/17 [History] Magnesium Oxide [Mag-Ox] 400 mg PO BID 05/24/17 [History] Dicyclomine [Bentyl] 20 mg PO TID 07/10/18 [History] Albuterol Sulfate [Proair Hfa] 2 puff INHALATION RT-Q4H PRN 10/20/19 [History] Sodium Bicarbonate Tab 650 mg PO BID 10/20/19 [History] Famotidine [Pepcid] 20 mg PO BID 11/06/19 [History] Loperamide HCl [Imodium A-D] 2 mg PO TID PRN 11/06/19 [History] QUEtiapine [SEROquel] 50 mg PO HS 06/22/20 [History] Ergocalciferol (Vitamin D2) [Drisdol (50,000 Iu)] 1,250 mcg PO Q7D 01/31/21 [History] Cefdinir [Omnicef] 300 mg PO BID #10 cap 04/13/21 [Rx] Gabapentin [Neurontin] 300 mg PO TID PRN #9 cap 04/13/21 [Rx] Follow up Appointment(s)/Referral(s): Meseret Haq MD [Primary Care Provider] - 1 Week
[2021-04-13 11:37] LABS: African American GFR (CKD) 49 (>60 ml/min/1.73 sqM); Anion Gap 12 mmol/L; Blood Urea Nitrogen 16 mg/dL (7-17); Calcium 9.4 mg/dL (8.4-10.2); Carbon Dioxide 23 mmol/L (22-30); Chloride 101 mmol/L (98-107); Glucose 129 mg/dL (74-99); Non-African American GFR(CKD) 43 (>60 ml/min/1.73 sqM); Potassium 3.2 mmol/L (3.5-5.1); Sodium 136 mmol/L (137-145)
[2021-04-13 13:39] VITALS: BP 175/84; PULSE 81; TEMP 98.7
[2021-04-13] MEDS ORDERED: POTASSIUM CHLORIDE ER 20 MEQ TAB.ER PO STA (14:29)
--- NOTE | 2021-04-13 16:09 | PN ---
PROGRESS NOTE Patient is seen for followup for acute kidney injury. Her renal function has improved with serum creatinine down to 1.3 now from 2.36 on initial admission. Patient is found to have urinary tract infection. She is currently being treated with IV antibiotics and she has been on IV fluids as well. This morning patient denies any significant complaints. PHYSICAL EXAMINATION: Blood pressure was 160/87, heart rate 76 per minute, she is afebrile. Examination of the heart S1, S2. Examination of the lungs, bilateral breath sounds are heard. Abdomen is soft, nontender. Examination of lower extremities shows edema mostly in the ankles. BIOSOLIDS MANAGEMENT TECHNICIAN exam grossly intact. LAB: Show sodium 136, potassium 3.2, chloride 101, BUN 16, creatinine 1.3, hemoglobin 7.8 g/dL. ASSESSMENT: 1. Acute kidney injury, mostly prerenal, improved with IV hydration. 2. Urinary tract infection with urine culture growing Gram-negative bacilli, maintained on ceftriaxone. 3. Metabolic acidosis, maintained on oral sodium bicarb prior to admission. 4. Hypokalemia, status post replacement. 5. Anemia, no active bleeding noted. Check iron studies if not done. The patient had significant iron deficiency with iron saturation 11% in February of 2021. We will repeat iron profile and add IV iron again if needed. PLAN: Replace potassium. Repeat iron profile. Continue off IV fluids. Continue antibiotics. MMODL / IJN: [id number] /
== END 2021-04-13 16:10 ==
LOC: EC 21:09 → 6NMEDSUR 04-11 07:15
PROVIDERS: ADMIT Internal Medicine; ATTEND Internal Medicine
DX: G92.8 Other toxic encephalopathy (principal); T50.905A Adverse effect of unspecified drugs, medicaments and biological substances, initial encounter; E86.0 Dehydration; N39.0 Urinary tract infection, site not specified; N17.9 Acute kidney failure, unspecified; J44.9 Chronic obstructive pulmonary disease, unspecified; F31.9 Bipolar disorder, unspecified; F41.1 Generalized anxiety disorder; G47.00 Insomnia, unspecified; I12.9 Hypertensive chronic kidney disease with stage 1 through stage 4 chronic kidney disease, or unspecified chronic kidney disease; N18.30 Chronic kidney disease, stage 3 unspecified; D61.9 Aplastic anemia, unspecified; K21.9 Gastro-esophageal reflux disease without esophagitis; K86.1 Other chronic pancreatitis; K52.9 Noninfective gastroenteritis and colitis, unspecified; K91.2 Postsurgical malabsorption, not elsewhere classified; M47.816 Spondylosis without myelopathy or radiculopathy, lumbar region; G62.9 Polyneuropathy, unspecified; E55.9 Vitamin D deficiency, unspecified; D72.819 Decreased white blood cell count, unspecified; M79.7 Fibromyalgia; G35 Multiple sclerosis; F43.10 Post-traumatic stress disorder, unspecified; F17.200 Nicotine dependence, unspecified, uncomplicated; R60.9 Edema, unspecified; E87.6 Hypokalemia; E86.1 Hypovolemia; E87.2 Acidosis; F11.10 Opioid abuse, uncomplicated; F19.10 Other psychoactive substance abuse, uncomplicated; S92.302D Fracture of unspecified metatarsal bone(s), left foot, subsequent encounter for fracture with routine healing; B96.89 Other specified bacterial agents as the cause of diseases classified elsewhere; Z20.822 Contact with and (suspected) exposure to COVID-19; Z85.038 Personal history of other malignant neoplasm of large intestine; Z86.73 Personal history of transient ischemic attack (TIA), and cerebral infarction without residual deficits; Z91.14 Patient's other noncompliance with medication regimen; Z16.24 Resistance to multiple antibiotics; Z85.028 Personal history of other malignant neoplasm of stomach; Z90.49 Acquired absence of other specified parts of digestive tract; R29.6 Repeated falls; Z79.899 Other long term (current) drug therapy; Z88.6 Allergy status to analgesic agent; Z88.1 Allergy status to other antibiotic agents; Z88.0 Allergy status to penicillin; Z91.013 Allergy to seafood; Z88.2 Allergy status to sulfonamides; Z88.8 Allergy status to other drugs, medicaments and biological substances; Z91.018 Allergy to other foods; Z91.048 Other nonmedicinal substance allergy status; Z83.3 Family history of diabetes mellitus; Z82.49 Family history of ischemic heart disease and other diseases of the circulatory system; Z82.5 Family history of asthma and other chronic lower respiratory diseases; Z83.79 Family history of other diseases of the digestive system; Z80.3 Family history of malignant neoplasm of breast
CPT/HCPCS: 96361 ×4; 96365; 96366; 96372 ×3; 99285; 36415; 93005; 97162; 97165; 80053; 80048 ×2; 84484; 85025 ×2; 81001; 80306; 87086; 87077; 87186; 87635; 71045; 76770; G0378 ×3; J0696 ×2; J1644 ×3

== ENCOUNTER → 2021-05-13 | Outpatient (CLI) | payer MEDICARE, OTHER ==
--- NOTE | 2021-05-13 13:44 | XR ---
EXAMINATION TYPE: XR chest 2V DATE OF EXAM: 05/13/2021 COMPARISON: NONE TECHNIQUE: PA and lateral views submitted. HISTORY: Preop FINDINGS: Elevated left hemidiaphragm with blunting of the left costophrenic angle. Diffuse osteopenia and arth ropathy shoulders. Biapical pleural thickening. Heart size normal. No overt failure. No pneumothorax. Hyperinflation suggests COPD and there is mild degenerative change of the spine. IMPRESSION: 1. COPD with pleural thickening or tiny pleural effusion.
[2021-05-13 13:55] LABS: Appearance,Urine Clear (Clear); Bilirubin,Urine Negative (Negative); Blood,Urine Negative (Negative); Color,Urine Yellow; Glucose,Urine (UA) Negative (Negative); Ketones,Urine Negative (Negative); Leukocyte Esterase,Urine Negative (Negative); Nitrite,Urine Negative (Negative); Protein,Urine Trace (Negative); Specific Gravity,Urine 1.021 (1.001-1.035); Urobilinogen,Urine <2.0 mg/dL (<2.0)
[2021-05-13 14:36] LABS: Basophils % (A) 1 %; Eosinophils % (A) 1 %; HCT 24.3 % (34.0-46.0); Lymphocytes # (A) 1.1 k/uL (1.0-4.8); Lymphocytes % (A) 27 %; MCHC 32.9 g/dL (31.0-37.0); MCV 100.3 fL (80.0-100.0); Macrocytosis Slight; Mean Platelet Volume 7.1; Monocytes # (A) 0.3 k/uL (0-1.0); Monocytes % (A) 6 %; Neutrophils # (A) 2.6 k/uL (1.3-7.7); Neutrophils % (A) 63 %; Platelet Count 283 k/uL (150-450); RBC 2.42 m/uL (3.80-5.40); WBC 4.1 k/uL (3.8-10.6)
[2021-05-13 14:47] LABS: INR 0.9 (<1.2); Prothrombin Time 9.7 sec (9.0-12.0)
[2021-05-13 14:51] LABS: Partial Thromboplastin Time 19.6 sec (22.0-30.0)
[2021-05-13 14:55] LABS: Calcium 9.1 mg/dL (8.4-10.2); Potassium 3.4 mmol/L (3.5-5.1)
== END | disposition home or self-care (01) ==
LOC: LABPAT 12:49
PROVIDERS: ATTEND Orthopaedic Surgery Orthopaedic Surgery of the Spine
DX: Z01.812 Encounter for preprocedural laboratory examination (principal); M51.26 Other intervertebral disc displacement, lumbar region
CPT/HCPCS: 71046; 80048; 81003; 85025; 85610; 85730

== ENCOUNTER 2021-05-24 06:14 | Day surgery (SDC) | payer MEDICARE, OTHER ==
[2021-05-17 09:49] VITALS: BMI 22.3
[~2021-05-24 06:14] MED LIST changes: +CLINDAMYCIN 900 MG in DEXTROSE 5% IN WATER 50 ML IVPB PRN; -DENOSUMAB 60 MG/ML 1 ML SYRINGE SQ NR
[2021-05-24] MEDS ORDERED: LACTATED RINGERS 1,000 ML IV ONE (07:20)
[2021-05-24] MEDS ORDERED: ONDANSETRON 4 MG/2 ML VIAL ONE (07:23)
[2021-05-24] MEDS ORDERED: PROPOFOL 10 MG/ML 20 ML VIAL IV ONE (07:30)
[2021-05-24] MEDS ORDERED: SUCCINYLCHOLINE CHLORIDE 100 MG/5 ML SYR IV ONE (07:30)
[2021-05-24] MEDS ORDERED: MIDAZOLAM 2 MG/2 ML VIAL ONE (07:30)
[2021-05-24] MEDS ORDERED: LIDOCAINE 1% INJ 10MG/ML (20 ML MDV) ONE (07:30)
[2021-05-24] MEDS ORDERED: ROCURONIUM 10 MG/ML (5 ML VIAL) IV ONE (07:30)
[2021-05-24] MEDS ORDERED: fentaNYL (PF) 50 MCG/ML 2 ML AMP ONE (07:30)
[2021-05-24] MEDS ORDERED: NEOSTIGMINE 1 MG/ML 10 ML VIAL ONE (07:30)
[2021-05-24] MEDS ORDERED: GLYCOPYRROLATE 0.2 MG/ML 2 ML VIAL ONE (07:30)
[2021-05-24] MEDS ORDERED: IOPAMIDOL M200 10 ML VIAL MISCELLANE ONE (07:36)
[2021-05-24] MEDS ORDERED: LIDOCAINE 0.5%-EPI 1:200,000 50 ML VIAL SQ ONE (07:36)
[2021-05-24 07:52] LABS: Basophils % (A) 0 %; Eosinophils % (A) 1 %; HCT 25.2 % (34.0-46.0); HGB 8.5 gm/dL (11.4-16.0); Lymphocytes # (A) 1.2 k/uL (1.0-4.8); Lymphocytes % (A) 25 %; MCH 32.4 pg (25.0-35.0); MCHC 33.5 g/dL (31.0-37.0); MCV 96.6 fL (80.0-100.0); Monocytes # (A) 0.2 k/uL (0-1.0); Monocytes % (A) 5 %; Neutrophils # (A) 3.3 k/uL (1.3-7.7); Neutrophils % (A) 68 %; Platelet Count 378 k/uL (150-450); RBC 2.61 m/uL (3.80-5.40); RDW 14.9 % (11.5-15.5); WBC 4.8 k/uL (3.8-10.6)
[2021-05-24] MEDS ORDERED: HYDROmorphone 0.5 MG/0.5 ML SYRINGE IVP PRN (08:48)
[2021-05-24] MEDS ORDERED: HYDROcodone/APAP 5-325MG 1 EACH TAB PO PRN (08:48)
[2021-05-24] MEDS ORDERED: BENZOCAINE/MENTHOL LOZENG 1 EACH LOZENGE MUCOUS MEM PRN (08:48)
[2021-05-24] MEDS ORDERED: ONDANSETRON 4 MG/2 ML VIAL IVP PRN (08:52)
[2021-05-24] MEDS ORDERED: IBUPROFEN 600 MG TAB PO PRN (08:52)
[2021-05-24] MEDS ORDERED: CYCLOBENZAPRINE 10 MG TAB PO PRN (08:52)
[2021-05-24] MEDS ORDERED: traMADol 50 MG TAB PO PRN (08:52)
[2021-05-24 08:53] VITALS: RESP 16; TEMP 96.8
[2021-05-24] MEDS ORDERED: SODIUM CHLORIDE 0.9% 1,000 ML IV SCH (09:00)
--- NOTE | 2021-05-24 09:02 | P.OP ---
Date of Procedure: 05/24/21 Preoperative Diagnosis: Compression fractures L3 and L4, subcu traumatic due to a fall Low back pain History of prior fusion L5-S1 Postoperative Diagnosis: Same Anesthesia: GETA Pathology: other (Vertebral body of L3 and L4 sent separately in formalin to pathology) Condition: stable Disposition: PACU Description of Procedure: BRIEF OPERATIVE NOTE Preoperative Diagnosis: Compression fractures L3 and L4, subcu traumatic due to a fall Low back pain History of prior fusion L5-S1 Postoperative Diagnosis: Same Procedure: Kyphoplasty L3 and L4 Vertebral body biopsy L3 and L4 Use of biplanar fluoroscopic guidance Surgeon: Dr. Chavez Merchandise Deliverer: Evangelist Plummer Anesthesia: General anesthesia Estimated blood loss: Less than 10 mL Specimen: Vertebral body biopsy sent to pathology in formalin Complications: None apparent Components implanted: Bone cement, approximately 5 mL per level Disposition: To recovery room in good stable condition. OPERATIVE INDICATIONS The patient has been having issues in their back ever since sustaining an injury. She is known to have a prior history of fusion at L5-S1 but had new evidence of compression fractures at L3 and L4. The patient has been through conservative treatment. They attempted conservative care with bracing however they're not having any benefit despite brace use. She had significant change in her pain since her injury and her symptoms seem to stem from the L3 and L4 vertebral compression deformities. She has a number of other issues and chronic low back pain as well and she understands that the new fractures be addressed today with surgical intervention but this will address the arthritic changes of her lumbar spine. They continue to have significant pain and debility due to their fracture. We discussed various treatment options including surgery, and the patient wishes to proceed with surgery We discussed the risk, patient's alternatives and benefits of surgery including but not limited to, risk of bleeding risk of infection, risk of need for further surgery, risk of decreased, loss of motion, loss of function, cement extravasation, nerve damage, paralysis, heart attack, blindness and . OPERATIVE SUMMARY After discussing all the risks, patient alternatives and benefits at length, the patient elected to proceed with surgical intervention, signed informed consent, and presented for their procedure. The patient was seen and examined in the preoperative holding area and the surgical site was marked. The patient was given antibiotics and brought to the operating room. The patient was sedated and intubated by anesthesia in standard fashion. The patient was positioned on to the operating room table in a prone position on the appropriate well-padded and well molded bilateral chest rolls. We were careful to pad any bony prominences and pressure points. We were careful to maintain the patient's cervical spine and good neutral alignment and position throughout. We used 2 C-arm machines to establish biplanar fluoroscopic guidance in AP and lateral positions. We were able to localize the fractures appropriately. The patient was prepped and draped in a normal standard fashion. An appropriate timeout and keystone protocol performed. We were able to proceed with the surgery. The local wound area was infiltrated with local anesthetic. An incision was made over the lateral aspect of the pedicle over the appropriate levels with a small 2 mm stab incision on the right at both L3 and L4. Intraoperative fluoroscopy was taken which showed a marker at the appropriate level at L3 and at L4. With the appropriate level positively confirmed, I was able to position a sharp trocar over the lateral aspect of the pedicle. As able to advance the trocar into the pedicle and into the posterior aspect of vertebral body being careful to avoid penetration cephalad caudad or medially. The trocar was placed appropriately into the posterior aspect of vertebral body at the appropriate levels. This was confirmed with C-arm guidance. With the trocar intact I was then able to take a bone biopsy with a biopsy punc h or a bony drill at L3 and L4. The biopsy specimen was passed off to be sent to pathology in formalin. I was then able to place the kyphoplasty balloon within the vertebral body. The position was checked on C-arm. I was able to inflate the balloon under low pressure and visualization with C-arm. The balloon was well enclosed within the vertebral body. The cement was prepared. With the cement at appropriate working condition the balloons were deflated and removed. I was able to place bony cement with trocar with the cement delivery device under low pressure. It had good fill within the vertebral body, both at L3 and L4. There is no evidence of any extravasation of the cement posteriorly toward the canal. The cement was well contained at the appropriate levels. The cement was allowed to cure appropriately. The trochars removed and final images were taken on C-arm. This showed the cement at the appropriate levels of L3 and 4. We were able to proceed with closure. The wound was cleaned and dried and dressed with the appropriate dressing. The drapes were broken down. The patient was gently rolled back onto their hospital bed being careful to maintain their cervical spine and good neutral alignment and position. They were woken up by anesthesia, extubated, and brought to the recovery room in good stable condition. The patient will be admitted to the hospital for observation and for appropriate postoperative care, medical management and monitoring. We will continue to follow them closely about the postoperative course.
--- NOTE | 2021-05-24 09:07 | FL ---
EXAMINATION TYPE: FL guidance operating room DATE OF EXAM: 05/24/2021 HISTORY: Fluoroscopy time 30 seconds of fluoroscopy provided. IMPRESSION: 1. Fluoroscopy time.
--- NOTE | 2021-05-24 09:15 | XR ---
EXAM TYPE: LUMBAR SPINE X RAY SERIES COMPARISON: NONE HISTORY: Kyphoplasty TECHNIQUE: 2 views are submitted. FINDINGS: 2 images are submitted demonstrating postsurgical changes. Resolution limited by intraoperative techn ique. IMPRESSION: 1. See above
[2021-05-24 09:51] VITALS: PULSE 66
[2021-05-24 10:17] VITALS: BP 119/55
== END 2021-05-24 10:56 | disposition home or self-care (01) ==
LOC: OR 06:14
PROVIDERS: ATTEND Orthopaedic Surgery Orthopaedic Surgery of the Spine
DX: M48.56XA Collapsed vertebra, not elsewhere classified, lumbar region, initial encounter for fracture (principal); M54.50 Low back pain, unspecified
CPT/HCPCS: 22514; 20251; 84132; 85025; 72100; C1713; J2250; J2710; J2405; J2001; J3010; J0330; J2704; Q9966; 88307; 88311

== ENCOUNTER 2021-06-10 07:48 | Emergency (ER) | payer MEDICARE, OTHER ==
[2021-06-10 08:00] VITALS: RESP 16; TEMP 98.3
--- NOTE | 2021-06-10 08:25 | ED ---
General Adult HPI - General Chief complaint: Fall Stated complaint: fall/back/knee/ankle pain Time Seen by Provider: 06/10/21 07:50 Source: patient, EMS, RN notes reviewed, old records reviewed Mode of arrival: EMS - History of Present Illness Initial comments: 65-year-old female presenting for evaluation of fall with bilateral foot pain, right knee pain, hip pain and mid back pain. Patient had kyphoplasty performed approximately one week ago. She states that she's been doing quite well after this procedure. She states she went to go to the bathroom and went fell in her kitchen. She states this occurred at approximately 6:30 AM. She denied significant head trauma. She denied chest pain or palpitations. Denied abdominal pain. No focal numbness or weakness. - Related Data Home Medications Medication Instructions Recorded Confirmed Folic Acid 1 mg PO DAILY 05/24/17 05/17/21 Magnesium Oxide [Mag-Ox] 400 mg PO BID 05/24/17 05/17/21 Albuterol Sulfate [Proair Hfa] 2 puff INHALATION RT-Q4H PRN 10/20/19 05/17/21 Sodium Bicarbonate Tab 650 mg PO BID 10/20/19 05/17/21 Famotidine [Pepcid] 20 mg PO BID 11/06/19 05/17/21 Loperamide HCl [Imodium A-D] 2 mg PO TID PRN 11/06/19 05/17/21 QUEtiapine [SEROquel] 50 mg PO HS 06/22/20 05/17/21 Ergocalciferol (Vitamin D2) 1,250 mcg PO Q7D 01/31/21 05/17/21 [Drisdol (50,000 Iu)] Acetaminophen [Tylenol Extra 1,000 mg PO BID PRN 05/17/21 05/17/21 Strength] DULoxetine HCL [Cymbalta] 90 mg PO DAILY 05/17/21 05/17/21 Gabapentin [Neurontin] 300 mg PO TID 05/17/21 05/17/21 HYDROcodone/APAP 5-325MG [[place] 1 tab PO Q8HR PRN 05/17/21 05/17/21 5-325] Lipase/Protease/Amylase [Zenpep Dr 2 cap PO TID-W/MEALS 05/17/21 05/17/21 40,000 Unit Capsule] Previous Rx's Medication Instructions Recorded HYDROcodone/APAP 5-325MG [[place] 5] 1 each PO Q8HR PRN #21 tab 05/24/21 Allergies Allergy/AdvReac Type Severity Reaction Status Date / Time alcohol Allergy Vomiting Verified 05/17/21 08:57 aspirin Allergy Nausea & Verified 05/17/21 08:57 Vomiting divalproex sodium Allergy Unknown Verified 05/17/21 08:57 [From Depakote] erythromycin base Allergy Dyspnea Verified 05/17/21 08:57 ketorolac [From Toradol] Allergy Unknown Verified 05/17/21 08:57 Penicillins Allergy Anaphylaxis Verified 05/17/21 08:57 shellfish derived [Shellfish] Allergy Rash/Hives Verified 05/17/21 08:57 strawberry Allergy Rash/Hives Verified 05/17/21 08:57 Sulfa (Sulfonamide Allergy Dyspnea & Verified 05/17/21 08:57 Antibiotics) Nausea/Vomiting Dial Soap Allergy Unknown Rash/Hives, Uncoded 05/17/21 09:56 itching Review of Systems ROS Statement: Those systems with pertinent positive or pertinent negative responses have been documented in the HPI. ROS Other: All systems not noted in ROS Statement are negative. Past Medical History Past Medical History: Cancer, COPD, CVA/TIA, Fibromyalgia, Hypertension Additional Past Medical History / Comment(s): Lupus, TIA, right hand tendons severed, closed head injury, multiple sclerosis, short bowel syndrome, pancreatic insufficiency, bowel cancer History of Any Multi-Drug Resistant Organisms: C-DIFF Date of last positivie culture/infection: 2014 MDRO Source:: patient Past Surgical History: Back Surgery Additional Past Surgical History / Comment(s): stomach cancer, right hemicolectomy and small bowel resection. Back surgery by 3 weeks ago Past Anesthesia/Blood Transfusion Reactions: No Reported Reaction Past Psychological History: Anxiety, Bipolar, Depression, PTSD Smoking Status: Current every day smoker Past Alcohol Use History: None Reported Past Drug Use History: None Reported - Past Family History Son(s) Family Medical History: No Reported History Brother(s) Family Medical History: Cancer General Exam General appearance: alert, in no apparent distress Head exam: Present: atraumatic, normocephalic Eye exam: Present: normal appearance, PERRL ENT exam: Present: normal exam Neck exam: Present: normal inspection, full ROM. Absent: tenderness, meningismus Respiratory exam: Present: normal lung sounds bilaterally. Absent: respiratory distress, wheezes, rales Cardiovascular Exam: Present: regular rate, normal rhythm GI/Abdominal exam: Present: soft. Absent: distended, tenderness, guarding Back exam: Present: paraspinal tenderness, other (Injection site with mild erythema, no cellulitis, no induration.) Neurological exam: Present: alert, oriented X3, CN II-XII intact. Absent: motor sensory deficit Psychiatric exam: Absent: normal affect, normal mood Skin exam: Present: warm, dry, intact Course Vital Signs 06/10/21 06/10/21 06/10/21 07:50 08:00 09:31 Temperature 98.3 F Pulse Rate 79 65 Respiratory 16 16 Rate Blood Pressure 124/106 125/74 158/76 O2 Sat by Pulse 99 100 Oximetry Procedures - Orthopedic Splinting/Casting Injury #1 Side: left Lower Extremity Injury Location: foot Lower Extremity Immobilizer: posterior splint Medical Decision Making - Medical Decision Making 65-year-old female with fall from home. Chief complaint of back and foot pain. She had a recent kyphoplasty L3-L4. And recent foot fracture on the left requiring boot. I did perform repeat imaging of the thoracic and lumbar spine as well as both hips, her right knee and both feet. X-rays reveal a compression fracture of T11 which is normal. No other acute findings in the thoracic or lumbar spine. X-rays of both hip are negative for acute fracture dislocation. X-ray of the right knee shows mild soft tissue swelling without fracture dislocation. X-rays of the feet are negative for displaced fracture, there is previous fracture of the second third and fourth metatarsals on the left. With callus formation. I did place his foot in a splint as she had significant pain there and there may be occult fracture. I do recommend she follows up with her orthopedic surgeon. Disposition Clinical Impression: Fall, Thoracic compression fracture, Metatarsal bone fracture Disposition: HOME SELF-CARE Condition: Fair Instructions (If sedation given, give patient instructions): Fall Prevention for Older Adults (ED), Vertebral Compression Fracture (ED), Vertebroplasty (DC), Foot Fracture in Adults (ED), Suspected Fracture (ED) Is patient prescribed a controlled substance at d/c from ED?: No Referrals: Meseret Haq MD [Primary Care Provider] - 1-2 days Vipul Danielle MD [Medical Doctor] - 1-2 days Time of Disposition: 10:22
--- NOTE | 2021-06-10 09:37 | XR ---
EXAMINATION TYPE: XR thoracic spine 3 views complete, XR lumbar spine 3 views DATE OF EXAM: 06/10/2021 Comparison: Correlation CT 01/31/2021 Clinical History: 65-year-old female with pain after fall Findings: Thoracic spine: Osteopenia. 12 rib-bearing thoracic vertebral bodies. Pedicles are visualized. Minimal superior endpl ate deformity T11 with minimal anterior wedging. New from 01/31/2021. Degenerative disc disease midthor acic spine. Alignment is maintained. Lumbar spine: Posterior fusion hardware at L5 and S1. Vertebroplasty changes at L3 and L4. Alignment is maintained. Remaining vertebral body heights are preserved. Facet arthropathy lower lumbar spine. Degenerative s ubarticular sclerosis left SI joint. Impression: 1. Thoracic spine: New mild superior endplate compression fracture of T11 resulting in minimal anteri or wedging. No malalignment. 2. Lumbar spine: As compared to 05/24/2011, there has been vertebroplasty change at L3 and L4. Previo us posterior fusion screws at L5 and S1. No additional vertebral compression collapse.
--- NOTE | 2021-06-10 09:45 | XR ---
EXAMINATION TYPE: XR Hip 2 views Bilateral and AP pelvis, XR foot complete 3 views bilateral, XR knee complete 3 views RT DATE OF EXAM: 06/10/2021 COMPARISON: Pelvis 11/03/2017 and left foot 04/03/2021 HISTORY: 65-year-old female pain after fall FINDINGS: Pelvis and both hips: Lumbar spine reported separately. Degenerative subarticular sclerosis left SI joint. Previous percuta neous pinning across the healed subcapital femoral neck fracture deformity. Stable corticated bone fr agment at the right anterior-inferior iliac spine. Mild degenerative axial joint space narrowing left hip. Osteopenia. No displaced fracture seen. Right knee: Meniscal chondrocalcinosis. Osteopenia. Mild soft tissue swelling at the knee. Generalized muscle atr ophy. Trace knee joint effusion. Extensor mechanism is intact. No acute fracture, subluxation, or dis location. Feet: Left: Angulated fracture deformities involving the second, third, and fourth metatarsal necks. Angula tion is slightly increased from 04/03/2021 but there is progressive periosteal callus and bony consoli dation of healing. Osteopenia. Os peroneum. No additional acute fracture, subluxation, dislocation is seen. Right: Osteopenia. Os peroneum. Mild bunion. No displaced fracture seen. IMPRESSION: 1. Pelvis and both hips: Previous percutaneous pinning across the healed subcapital femoral neck frac ture deformity of the right hip. Mild degenerative change left hip and left SI joint. Osteopenia with out displaced fracture seen. 2. Right knee: Generalized soft tissue swelling and trace knee joint effusion. Generalized muscle atr ophy. Osteopenia. No acute osseous abnormality seen. Given swelling and joint effusion, if pain persi sts at the knee, MRI can be performed. 3. Feet: On the left, angulated fracture deformities involving the second, third, and fourth metatars al necks redemonstrated, also seen on the prior 04/13/2021 exam. While lateral angulation is slightly increased, there are also progressive healing changes. Findings suggest subacute healing fracture de formities. No definite acute osseous abnormality seen on either side. Routine orthopedic follow-up re commended to monitor for ongoing appropriate healing of the left foot.
[2021-06-10] MEDS ORDERED: MORPHINE SULFATE 4 MG/ML SYRINGE IM STA (10:16)
[2021-06-10 11:29] VITALS: BP 163/83; PULSE 70
== END 2021-06-10 11:50 | disposition home or self-care (01) ==
LOC: EC 07:48
DX: S22.080A Wedge compression fracture of T11-T12 vertebra, initial encounter for closed fracture (principal); S92.332A Displaced fracture of third metatarsal bone, left foot, initial encounter for closed fracture; S92.342A Displaced fracture of fourth metatarsal bone, left foot, initial encounter for closed fracture; M25.561 Pain in right knee; M25.551 Pain in right hip; F17.200 Nicotine dependence, unspecified, uncomplicated; J44.9 Chronic obstructive pulmonary disease, unspecified; I10 Essential (primary) hypertension; M79.7 Fibromyalgia; Z86.73 Personal history of transient ischemic attack (TIA), and cerebral infarction without residual deficits; Z88.8 Allergy status to other drugs, medicaments and biological substances; Z88.6 Allergy status to analgesic agent; Z88.2 Allergy status to sulfonamides; Z88.0 Allergy status to penicillin; Z91.013 Allergy to seafood; Z91.018 Allergy to other foods; Z91.048 Other nonmedicinal substance allergy status; Z79.899 Other long term (current) drug therapy; W19.XXXA Unspecified fall, initial encounter
CPT/HCPCS: 73630; 72072; 72100; 73521; 73562; 99284; 29515; 96372; J2270

== ENCOUNTER → 2021-12-08 | Outpatient (CLI) | payer MEDICARE, OTHER ==
--- NOTE | 2021-12-08 15:36 | MM ---
Reason for Exam: Follow-up at short interval from prior study. Last mammogram was performed 1 year(s) and 2 month(s) ago. Patient History: Menarche at age 11. First Full-Term at age 20. Left ovary removed at age 38. Right ovary removed at age 38. Hysterectomy at age 25. Postmenopausal. Other cancer, age 30. Maternal aunt had breast cancer, age 60. Risk Values: Temitope 5 year model risk: 1.5%. NCI Lifetime model risk: 5.0%. Tissue Density: The breast tissue is extremely dense which could obscure a lesion on mammography. Findings: Analyzed By CAD. There are a few scattered benign-appearing calcifications throughout the right breast redemonstrated. No new distortion or worrisome group of microcalcification in either breast. Overall Assessment: Benign, BI-RAD 2 Management: Screening Mammogram of both breasts in 1 year. Some advise annual bilateral breast ultrasound in patient's with background extreme dense tissue. Results were given to the patient verbally at the time of exam. Electronically signed and approved by: Sohan Lyons M.D.
--- NOTE | 2021-12-08 16:01 | US ---
EXAMINATION TYPE: US carotid duplex BILAT DATE OF EXAM: 12/08/2021 COMPARISON: NONE CLINICAL HISTORY: I65.23 CAROTID STENOSIS. stroke 30 years ago EXAM MEASUREMENTS: RIGHT: Peak Systolic Velocity (PSV) cm/sec ----- Right CCA: 123.3 ----- Right ICA: 94.9 ----- Right ECA: 138.3 ICA/CCA ratio: 0.8 RIGHT: End Diastole cm/sec ----- Right CCA: 30.2 ----- Right ICA: 25.6 ----- Right ECA: 27.9 LEFT: Peak Systolic Velocity (PSV) cm/sec ----- Left CCA: 113.0 ----- Left ICA: 98.2 ----- Left ECA: 138.6 ICA/CCA ratio: 0.9 LEFT: End Diastole cm/sec ----- Left CCA: 34.0 ----- Left ICA: 44.3 ----- Left ECA: 18.3 VERTEBRALS (direction of flow): Right Vertebral: Antegrade Left Vertebral: Antegrade Rhythm: Normal No significant focal plaque on grayscale images. IMPRESSION: No hemodynamically significant stenosis in either internal carotid artery. Increased p eak systolic velocity bilateral common carotid arteries raises concern for underlying uncontrolled hy pertension. Criteria for Assigning % of Stenosis / Diameter reduction (Estimation based on the indirect measurements of the internal carotid artery velocities (ICA PSV). 1. Normal (no stenosis)=ICA PSV < 125 cm/s: ratio < 2.0: ICA EDV<40 cm/s. 2. Less than 50% stenosis=ICA PSV < 125 cm/s: ratio < 2.0: ICA EDV<40 cm/s. 3. 50 to 69% stenosis=ICA PSV of 125 to 230 cm/s: ration 2.0 ? 4.0: ICA EDV 40-100 cm/s. 4. Greater than 70% stenosis to near occlusion= ICA PSV > 230 cm/s: ratio > 4.0: ICA EDV > 100 cm/s. 5. Near occlusion= ICA PSV velocities may be low or undetectable: variable ratio and ICA EDV. 6. Total occlusion=unable to detect flow.
== END | disposition home or self-care (01) ==
LOC: RADMAMWWP 15:02
PROVIDERS: ATTEND Internal Medicine
DX: Z12.2 Encounter for screening for malignant neoplasm of respiratory organs (principal); R92.8 Other abnormal and inconclusive findings on diagnostic imaging of breast; I65.23 Occlusion and stenosis of bilateral carotid arteries
CPT/HCPCS: 77066; 93880; G0279; 77062

== ENCOUNTER → 2021-12-15 | Outpatient (CLI) | payer MEDICARE, OTHER ==
[2021-12-15 13:19] LABS: Basophils # (A) 0.1 k/uL (0-0.2); Basophils % (A) 1 %; Eosinophils # (A) 0.2 k/uL (0-0.7); Eosinophils % (A) 3 %; HCT 33.3 % (34.0-46.0); HGB 10.7 gm/dL (11.4-16.0); Lymphocytes # (A) 1.6 k/uL (1.0-4.8); Lymphocytes % (A) 26 %; MCH 35.3 pg (25.0-35.0); MCHC 32.2 g/dL (31.0-37.0); MCV 109.7 fL (80.0-100.0); Macrocytosis Marked; Mean Platelet Volume 7.7; Monocytes # (A) 0.4 k/uL (0-1.0); Monocytes % (A) 7 %; Neutrophils # (A) 3.8 k/uL (1.3-7.7); Neutrophils % (A) 62 %; Platelet Count 262 k/uL (150-450); RBC 3.03 m/uL (3.80-5.40); RDW 12.8 % (11.5-15.5); WBC 6.1 k/uL (3.8-10.6)
[2021-12-15 13:35] LABS: Creatinine,Urine Random 107.9 mg/dL; Protein/Creatinine Ratio,Urine 0.195
[2021-12-15 15:32] LABS: Hypochromasia Slight
[2021-12-15 18:59] LABS: ALT 11 U/L (8-44); AST 18 U/L (13-35); African American GFR (CKD) 41.1 (60.0-200.0); Albumin 4.3 g/dL (3.8-4.9); Albumin/Globulin Ratio 2.15 (1.60-3.17); Alkaline Phosphatase 123 U/L (41-126); BUN/Creat Ratio 15.93 Ratio (12.00-20.00); Blood Urea Nitrogen 23.9 mg/dL (9.0-27.0); Calcium 9.3 mg/dL (8.7-10.3); Carbon Dioxide 20.1 mmol/L (20.0-27.5); Chloride 107 mmol/L (96-109); Chol/HDL Ratio 3.49 Ratio; Glucose 88 mg/dL (70-110); Iron 56 ug/dL (50-170); LDL Cholesterol,Calculated 86.9 mg/dL (0.0-131.0); Non-African American GFR(CKD) 35.4 (60.0-200.0); Potassium 4.4 mmol/L (3.5-5.5); Sodium 142 mmol/L (135-145); Total Bilirubin <0.15 mg/dL (0.30-1.20); Total Iron Binding Capacity 309 ug/dL (228-460); Total Protein 6.3 g/dL (6.2-8.2); Uric Acid 5.2 mg/dL (2.9-7.7)
[2021-12-15 20:23] LABS: Appearance,Urine Clear (Clear); Bilirubin,Urine Negative (Negative); Blood,Urine Trace (Negative); Color,Urine Yellow (Yellow); Ketones,Urine Negative (Negative); Nitrite,Urine Negative (Negative); Specific Gravity,Urine 1.022 (1.001-1.030); Urobilinogen,Urine 0.2 (0.2,1.0)
[2021-12-15 20:30] LABS: Bacteria,Urine None Seen /HPF (None Seen)
== END | disposition home or self-care (01) ==
LOC: LABWHC1 11:36
PROVIDERS: ATTEND Internal Medicine
DX: D61.9 Aplastic anemia, unspecified (principal); M81.0 Age-related osteoporosis without current pathological fracture; E78.2 Mixed hyperlipidemia; E55.9 Vitamin D deficiency, unspecified; N18.31 Chronic kidney disease, stage 3a
CPT/HCPCS: 36415; 80053; 80061; 81001; 82306; 82570; 82728; 83036; 83540; 83550; 84156; 84439; 84443; 84550; 85025

== ENCOUNTER 2021-12-26 12:54 | Emergency (ER) | payer MEDICARE, OTHER ==
[2021-12-26 13:03] VITALS: TEMP 98.7
[2021-12-26] MEDS ORDERED: ONDANSETRON 4 MG/2 ML VIAL IVP STA (13:43)
[2021-12-26] MEDS ORDERED: SODIUM CHLORIDE 0.9% 1,000 ML IV STA (13:43)
[2021-12-26] MEDS ORDERED: ACETAMINOPHEN TAB 500 MG TAB PO STA (13:46)
[2021-12-26] MEDS ORDERED: diphenhydrAMINE 50 MG/ML 1 ML VIAL IVP STA (13:46)
--- NOTE | 2021-12-26 14:25 | CT ---
EXAMINATION TYPE: CT brain wo con DATE OF EXAM: 12/26/2021 COMPARISON: 04/03/2021 HISTORY: Headache, vomiting, history of brain bleed CT DLP: 1072.4 mGycm Automated exposure control for dose reduction was used. There is mild cerebral atrophy. There is no mass effect or midline shift. No sign of intracranial hem orrhage. There is patchy hypodensity in the periventricular white matter. The calvarium is intact. IMPRESSION: Cerebral atrophy and chronic small vessel ischemia. No significant change.
[2021-12-26] MEDS ORDERED: MORPHINE SULFATE 4 MG/ML SYRINGE IVP STA (14:41)
[2021-12-26 15:12] VITALS: RESP 18
[2021-12-26 16:37] LABS: Basophils # (A) 0.1 k/uL (0-0.2); Basophils % (A) 1 %; Eosinophils # (A) 0.2 k/uL (0-0.7); Eosinophils % (A) 3 %; HCT 32.4 % (34.0-46.0); HGB 10.6 gm/dL (11.4-16.0); Lymphocytes # (A) 1.7 k/uL (1.0-4.8); Lymphocytes % (A) 20 %; MCH 34.5 pg (25.0-35.0); MCHC 32.6 g/dL (31.0-37.0); MCV 105.6 fL (80.0-100.0); Macrocytosis Slight; Mean Platelet Volume 7.3; Monocytes # (A) 0.4 k/uL (0-1.0); Monocytes % (A) 5 %; Neutrophils # (A) 5.9 k/uL (1.3-7.7); Neutrophils % (A) 71 %; Platelet Count 258 k/uL (150-450); RBC 3.07 m/uL (3.80-5.40); WBC 8.3 k/uL (3.8-10.6)
[2021-12-26 16:41] LABS: Erythrocyte Sedimentation Rate QNS mm/hr (0-20)
[2021-12-26 16:45] LABS: ALT 14 U/L (4-34); African American GFR (CKD) 62 (>60 ml/min/1.73 sqM); Anion Gap 8 mmol/L; Blood Urea Nitrogen 13 mg/dL (7-17); Calcium 8.5 mg/dL (8.4-10.2); Carbon Dioxide 22 mmol/L (22-30); Chloride 108 mmol/L (98-107); Glucose 100 mg/dL (74-99); Non-African American GFR(CKD) 54 (>60 ml/min/1.73 sqM); Sodium 138 mmol/L (137-145); Total Bilirubin 0.6 mg/dL (0.2-1.3)
[2021-12-26 17:18] LABS: Albumin 4.4 g/dL (3.5-5.0); C Reactive Protein <0.5 mg/dL (<1.0)
[2021-12-26 17:19] LABS: AST 34 U/L (14-36); Alkaline Phosphatase 107 U/L (38-126); Potassium 5.5 mmol/L (3.5-5.1)
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
[2021-12-26 18:22] VITALS: BP 164/86; PULSE 65
== END 2021-12-26 18:22 | disposition home or self-care (01) ==
LOC: EC 12:54
DX: R51.9 Headache, unspecified (principal); R11.10 Vomiting, unspecified; I10 Essential (primary) hypertension; J44.9 Chronic obstructive pulmonary disease, unspecified; M79.7 Fibromyalgia; F31.9 Bipolar disorder, unspecified; F41.9 Anxiety disorder, unspecified; F17.200 Nicotine dependence, unspecified, uncomplicated; Z86.73 Personal history of transient ischemic attack (TIA), and cerebral infarction without residual deficits; Z79.51 Long term (current) use of inhaled steroids; Z79.899 Other long term (current) drug therapy
CPT/HCPCS: 36415; 80053; 85652; 85025; 86140; 70450; 99284; 96374; 96375 ×2; 96361 ×3; J2270; J1200; J2405

== ENCOUNTER 2022-01-05 12:58 | Day surgery (SDC) | payer MEDICARE, OTHER ==
[2022-01-04 13:50] VITALS: BMI 20.7
[~2022-01-05 12:58] MED LIST changes: -CLINDAMYCIN 900 MG in DEXTROSE 5% IN WATER 50 ML IVPB PRN; +LACTATED RINGERS 1,000 ML IV SCH
[2022-01-05 13:14] VITALS: TEMP 97.1
[2022-01-05] MEDS ORDERED: LIDOCAINE 2% INJ 20 MG/ML (2 ML VIAL) ONE (13:46)
[2022-01-05] MEDS ORDERED: PROPOFOL 10 MG/ML 20 ML VIAL IV ONE (13:46)
--- NOTE | 2022-01-05 14:34 | P.OP ---
Date of Procedure: 01/05/22 Preoperative Diagnosis: Dysphasia, colon cancer screening Postoperative Diagnosis: Dysphasia, gastric erosions, colon cancer screening, personal history of colon Polyps, family history of colon cancer Procedure(s) Performed: EGD, colonoscopy Anesthesia: MAC Surgeon: Huong Guaman Disposition: PACU Indications for Procedure: Patient presents with dysphagia. She has a personal history of colon polyps or masses colonoscopy was 3 years ago Description of Procedure: Patient's taken the endoscopy suite were gastroscope is passed per mouth to the third and fourth portions of the duodenum. The pharynx is unremarkable. There may be some early presbyesophagus. No obvious stricture at the lower esophageal sphincter. She has several areas of superficial erosion in the antrum. Cold biopsies were obtained. Otherwise the stomach, pylorus and duodenal evidence of mass lesion, ulcer or mucosal abnormality. She is then repositioned in a colonoscope is passed per rectum to the anastomosis. The anastomosis is widely patent. She has a rather redundant colon. The prep was extremely poor prep so a polyp certainly could have been missed. Grossly there is no evidence of mass lesion, ulcer stricture. She tolerated the procedure without difficulty and is taken to recovery room in satisfactory condition. We'll have her do a repeat colonoscopy in 2 years with an EXTENDED PREP Plan - Discharge Summary Discharge Rx Participant: Yes New Discharge Prescriptions: No Action Magnesium Oxide [Mag-Ox] 400 mg PO BID Folic Acid 1 mg PO DAILY Sodium Bicarbonate Tab 650 mg PO BID Albuterol Sulfate [Proair Hfa] 2 puff INHALATION RT-Q4H PRN PRN Reason: Shortness Of Breath Famotidine [Pepcid] 20 mg PO BID Loperamide HCl [Imodium A-D] 2 mg PO TID PRN PRN Reason: Diarrhea QUEtiapine [SEROquel] 50 mg PO HS Ergocalciferol (Vitamin D2) [Drisdol (50,000 Iu)] 1,250 mcg PO Q7D Gabapentin [Neurontin] 300 mg PO TID DULoxetine HCL [Cymbalta] 90 mg PO DAILY Lipase/Protease/Amylase [Zenpep Dr 40,000 Unit Capsule] 2 cap PO TID-W/MEALS Acetaminophen-Codeine 300-30mg [Tylenol w/codeine #3] 2 tab PO Q8H PRN PRN Reason: Pain Discharge Medication List Folic Acid 1 mg PO DAILY 05/24/17 [History] Magnesium Oxide [Mag-Ox] 400 mg PO BID 05/24/17 [History] Albuterol Sulfate [Proair Hfa] 2 puff INHALATION RT-Q4H PRN 10/20/19 [History] Sodium Bicarbonate Tab 650 mg PO BID 10/20/19 [History] Famotidine [Pepcid] 20 mg PO BID 11/06/19 [History] Loperamide HCl [Imodium A-D] 2 mg PO TID PRN 11/06/19 [History] QUEtiapine [SEROquel] 50 mg PO HS 06/22/20 [History] Ergocalciferol (Vitamin D2) [Drisdol (50,000 Iu)] 1,250 mcg PO Q7D 01/31/21 [History] DULoxetine HCL [Cymbalta] 90 mg PO DAILY 05/17/21 [History] Gabapentin [Neurontin] 300 mg PO TID 05/17/21 [History] Lipase/Protease/Amylase [Zenpep Dr 40,000 Unit Capsule] 2 cap PO TID-W/MEALS 05/17/21 [History] Acetaminophen-Codeine 300-30mg [Tylenol w/codeine #3] 2 tab PO Q8H PRN 01/04/22 [History] Discharge Disposition: HOME SELF-CARE
[2022-01-05 14:37] VITALS: RESP 16
[2022-01-05 14:52] VITALS: BP 163/69; PULSE 63
== END 2022-01-05 15:16 | disposition home or self-care (01) ==
LOC: ORWHC2ENDO 12:58
PROVIDERS: ATTEND Surgery
DX: Z12.11 Encounter for screening for malignant neoplasm of colon (principal); K29.50 Unspecified chronic gastritis without bleeding; K25.9 Gastric ulcer, unspecified as acute or chronic, without hemorrhage or perforation; Z86.010 Personal history of colon polyps; Z80.0 Family history of malignant neoplasm of digestive organs; E03.9 Hypothyroidism, unspecified; G35 Multiple sclerosis; G40.909 Epilepsy, unspecified, not intractable, without status epilepticus; D64.9 Anemia, unspecified; M19.90 Unspecified osteoarthritis, unspecified site; J44.9 Chronic obstructive pulmonary disease, unspecified; Z85.028 Personal history of other malignant neoplasm of stomach; F32.A Depression, unspecified; R01.1 Cardiac murmur, unspecified; Z86.73 Personal history of transient ischemic attack (TIA), and cerebral infarction without residual deficits; Z79.899 Other long term (current) drug therapy; Z80.8 Family history of malignant neoplasm of other organs or systems; Z83.3 Family history of diabetes mellitus; Z82.49 Family history of ischemic heart disease and other diseases of the circulatory system; F17.210 Nicotine dependence, cigarettes, uncomplicated; Z88.3 Allergy status to other anti-infective agents; Z88.8 Allergy status to other drugs, medicaments and biological substances; Z88.0 Allergy status to penicillin; Z88.6 Allergy status to analgesic agent; Z88.2 Allergy status to sulfonamides; Z91.013 Allergy to seafood; Z91.048 Other nonmedicinal substance allergy status; Z91.09 Other allergy status, other than to drugs and biological substances; M79.7 Fibromyalgia; M32.9 Systemic lupus erythematosus, unspecified
CPT/HCPCS: 88305; 43250; J2704; J2001; G0105

== ENCOUNTER → 2022-01-26 | Outpatient (CLI) | payer MEDICARE, OTHER ==
--- NOTE | 2022-01-26 17:13 | MR ---
EXAMINATION TYPE: MR brain wo/w con DATE OF EXAM: 01/26/2022 COMPARISON: 12/13/2013 HISTORY: 66-year-old female R51.9 Headache TECHNIQUE: Multiplanar, multisequence images of the brain and brainstem were acquired before and aft er administration of 5 mL IV Gadavist. Diffusion weighted imaging is performed. FINDINGS: No evidence for acute infarction, hemorrhage, mass, mass effect, midline shift, herniation, effacemen t of basal cisterns, or extra-axial fluid collection. There is egxq-[id number] volume loss overlying the bilateral cerebral convexities. No hydrocephalus. Major intracranial flow voids are intact but with diminutive vertebral and basilar arteries. Possible 5 mm nodularity anterior aspect of the left middle cranial fossa, axial postcontrast image 12, sagit cristofer image 50, and coronal image 13. Further angiographic evaluation recommended to exclude aneurysm h ere. T2/FLAIR weighted sequences show moderate to severe scattered bright white matter change throughout t he subcortical, deep, and periventricular regions of both hemispheres. Additional patchy signal tom es within the bilateral paramedian shannan. Interval progression with more confluent areas compared to 2 014. Midline structures demonstrate normal morphology. The craniocervical junction is normal. Post contrast images demonstrate no evidence of pathologic enhancement. Dural venous sinuses are pat ent. T2 hyperintense nodularity in both sides of the nasopharynx measuring up to 1 cm was present back in 2013, suspected mucosal retention cysts. Mild mucosal thickening ethmoid air cells. Leftward nasal se ptal deviation. Globes are intact. IMPRESSION: 1. Moderate to severe scattered burden of T2 bright white matter change in both cerebral hemispheres. Moderate progression as compared to 2014 now with confluent areas. Differential considerations inclu de progressive changes of chronic small vessel ischemic disease, demyelinating disease, vasculitis, u ncontrolled hypertension, and severe chronic migraines. Clinically correlate. 2. No acute intracranial abnormality seen. 3. Area of 5 mm nodularity within the anterior aspect of the left middle cranial fossa. Unable to exc lude a MCA branch saccular aneurysm. Further thin cut CT angiogram of the [place] recommende d to further evaluate. 4. Diminutive appearance to the vertebral and basilar arteries. Correlate for any chronic symptoms of vertebrobasilar insufficiency.
== END | disposition home or self-care (01) ==
LOC: RADMRIMAIN 10:31
PROVIDERS: ATTEND Internal Medicine
DX: R51.9 Headache, unspecified (principal)
CPT/HCPCS: 70553; A9585

== ENCOUNTER → 2022-04-18 | Outpatient (CLI) | payer MEDICARE, OTHER ==
[2022-04-18 11:08] LABS: ALT 15 U/L (4-34); AST 22 U/L (14-36); African American GFR (CKD) 33 (>60 ml/min/1.73 sqM); Albumin 3.8 g/dL (3.5-5.0); Albumin/Globulin Ratio 1.8; Alkaline Phosphatase 70 U/L (38-126); Anion Gap 13 mmol/L; Blood Urea Nitrogen 29 mg/dL (7-17); Calcium 6.6 mg/dL (8.4-10.2); Carbon Dioxide 15 mmol/L (22-30); Chloride 112 mmol/L (98-107); Globulin 2.1 g/dL; Glucose 80 mg/dL (74-99); Non-African American GFR(CKD) 28 (>60 ml/min/1.73 sqM); Potassium 3.2 mmol/L (3.5-5.1); Sodium 140 mmol/L (137-145); Total Bilirubin 0.4 mg/dL (0.2-1.3); Total Protein 5.9 g/dL (6.3-8.2)
--- NOTE | 2022-04-18 11:13 | CTL ---
EXAMINATION TYPE: CT Low Dose Lung DATE OF EXAM ORDERED: 04/18/2022 COMPARISON: 05/20/2020 HISTORY: . Low Dose CT Lung Screening CT DLP: 38.[address] CTDI: 1.0 mGy IV CONTRAST USED: None. SCREENING VISIT: First visit COMPARISON: None. TECHNIQUE: Low dose computed tomography scan was performed through the chest at 1 millimeter thick se ctions and reconstructed images in the coronal plane at [address] DIAGNOSTIC QUALITY: Satisfactory FINDINGS: LUNG NODULES: Nodular density right upper lobe posteriorly image 92 is smaller in size and currently measures 3.2 mm versus prior measurement of 9 x 6 mm. Vague areas of focal groundglass opacity right upper lobe, right middle lobe and left upper lobe all remain unchanged and are likely postinflammator y in nature. No new nodules are appreciated. LUNGS: COPD: Severity: Mild Fibrosis: Severity: Mild apical fibrotic changes seen. Lymph nodes: None Other findings: None RIGHT PLEURAL SPACE: Effusion: None Calcification: None Thickening: None Pneumothorax: None LEFT PLEURAL SPACE: Effusion: None Calcification: None Thickening: Stable pleural thickening right midlung zone. Pneumothorax: None HEART: Heart Size: Mildly enlarged Coronary calcification: Unchanged from prior Pericardial effusion: None OTHER FINDINGS: Upper abdomen: No significant abnormality Bony thorax: Degenerative changes Supraclavicular region: No significant abnormalityOther: No significant abnormalityI IMPRESSION: 1. Right upper lobe pulmonary nodule persists although is smaller in size. 2. Persistent vague areas of groundglass opacity likely inflammatory in nature. FOLLOW UP CT CHEST RECOMMENDATION: Follow-up screening in one year CT LUNG RAD: LUNG RAD CATEGORY 2 benign appearance or behavior.
--- NOTE | 2022-04-18 11:48 | CT ---
EXAMINATION TYPE: CT abdomen pelvis wo con DATE OF EXAM: 04/18/2022 COMPARISON: January 31, 2021 HISTORY: Chronic pancreatitis CT DLP: 194 mGycm Examination of the solid and hollow viscera is limited given the lack of contrast. FINDINGS: LUNG BASES: No evidence for nodule. No evidence for infiltrate. LIVER/GB: The gallbladder is unremarkable. No space-occupying hepatic lesion. PANCREAS: Atrophic changes of the pancreas persists. No pancreatic mass identified. No inflammatory p rocess seen. SPLEEN: No evidence for splenomegaly. No intrasplenic lesions seen. ADRENALS: No adrenal nodules identified. No evidence for thickening. KIDNEYS: No evidence for renal mass. No nephrolithiasis. No hydronephrosis. BOWEL: Surgical clips in the region of the cecal tip from probable previous appendectomy. Moderate to severe constipation throughout the colon. Small bowel is of normal caliber. No evidence of bowel obs truction. No inflammatory process. Lymph nodes: No evidence for adenopathy greater than 1 cm. Abdominal aorta: Atheromatous changes seen. No evidence for aneurysm. Genital organs: No significant abnormality. Other: Postoperative changes right hip. Moderate new compression deformities of L3 and L4 are noted to have occurred in the interval. Mild bony retropulsion at the superior posterior endplate of L3 wit h effacement of the ventral thecal sac. IMPRESSION: 1. Atrophic changes of the pancreas compatible with chronic pancreatitis. 2.Moderate new compression deformities of L3 and L4 are noted to have occurred in the interval. Mild bony retropulsion at the superior posterior endplate of L3 with effacement of the ventral thecal sac . 3. Severe constipation
== END | disposition home or self-care (01) ==
LOC: RADCTMAIN 09:21
PROVIDERS: ATTEND Internal Medicine
DX: K86.1 Other chronic pancreatitis (principal); Z87.891 Personal history of nicotine dependence; I10 Essential (primary) hypertension; N18.31 Chronic kidney disease, stage 3a; E78.2 Mixed hyperlipidemia
CPT/HCPCS: 71271; 74176; 80053

== ENCOUNTER → 2022-04-25 | Outpatient (CLI) | payer MEDICARE, OTHER ==
[2022-04-25 12:53] LABS: Protein/Creatinine Ratio,Urine 0.59
[2022-04-25 14:25] LABS: Basophils # (A) 0.04 X 10*3/uL (0.00-0.10); Basophils % (A) 0.6 %; Eosinophils # (A) 0.07 X 10*3/uL (0.04-0.35); HCT 29.7 % (37.2-46.3); HGB 9.5 g/dL (12.0-15.0); Immature Grans, Automated 0.6 %; Lymphocytes # (A) 2.16 X 10*3/uL (0.90-5.00); Lymphocytes % (A) 29.9 %; MCH 33.1 pg (27.0-32.0); MCV 103.5 fL (80.0-97.0); Mean Platelet Volume 10.4 fL (9.5-12.2); Monocytes # (A) 0.67 X 10*3/uL (0.20-1.00); Monocytes % (A) 9.3 %; NRBC Per 100 WBC 0 /100 WBCS (0.0-0.0); Neutrophils # (A) 4.25 X 10*3/uL (1.80-7.70); Neutrophils % (A) 58.6 %; Platelet Count 305 X 10*3/uL (140-440); RBC 2.87 X 10*6/uL (4.10-5.20); WBC 7.23 X 10*3/uL (4.50-10.00)
[2022-04-25 15:10] LABS: Amylase 45 U/L (23-121); Chol/HDL Ratio 2.44 Ratio; LDH 224 U/L (120-246); LDL Cholesterol,Calculated 62.6 mg/dL (0.0-131.0); Lipase 17 U/L (14-63)
[2022-04-25 15:43] LABS: Vitamin B12 <150.0 pg/mL (200.0-944.0)
[2022-04-25 16:40] LABS: Iron 73 ug/dL (50-170); Phosphorus 4.1 mg/dL (2.4-5.1); Total Iron Binding Capacity 242 ug/dL (228-460); Uric Acid 4.2 mg/dL (2.9-7.7)
[2022-04-25 16:58] LABS: ALT 13 U/L (8-44); AST 19 U/L (13-35); African American GFR (CKD) 41.1 (60.0-200.0); Albumin 4.2 g/dL (3.8-4.9); Albumin/Globulin Ratio 1.91 (1.60-3.17); Alkaline Phosphatase 88 U/L (41-126); BUN/Creat Ratio 15.67 Ratio (12.00-20.00); Blood Urea Nitrogen 23.5 mg/dL (9.0-27.0); Calcium 6.7 mg/dL (8.7-10.3); Carbon Dioxide 9.4 mmol/L (20.0-27.5); Chloride 110 mmol/L (96-109); Globulin 2.2 g/dL (1.6-3.3); Glucose 77 mg/dL (70-110); Magnesium 0.7 mg/dL (1.5-2.4); Non-African American GFR(CKD) 35.4 (60.0-200.0); Potassium 3.1 mmol/L (3.5-5.5); Sodium 140 mmol/L (135-145); Total Protein 6.4 g/dL (6.2-8.2)
[2022-04-25 21:03] LABS: Appearance,Urine Clear (Clear); Bilirubin,Urine Negative (Negative); Blood,Urine Negative (Negative); Color,Urine Yellow (Yellow); Ketones,Urine Negative (Negative); Nitrite,Urine Negative (Negative); PH, Urine 6.5 (5.0-8.0); Specific Gravity,Urine 1.018 (1.001-1.030); Urobilinogen,Urine 0.2 (0.2,1.0)
== END | disposition home or self-care (01) ==
LOC: LABWHC1 09:11
PROVIDERS: ATTEND Internal Medicine
DX: I12.9 Hypertensive chronic kidney disease with stage 1 through stage 4 chronic kidney disease, or unspecified chronic kidney disease (principal); N18.31 Chronic kidney disease, stage 3a; E78.2 Mixed hyperlipidemia; K86.1 Other chronic pancreatitis
CPT/HCPCS: 36415; 80053; 80061; 81001; 82150; 82306; 82570; 82607; 82728; 82746; 83516; 83540; 83550; 83615; 83690; 83735; 84100; 84156; 84550; 85025

== ENCOUNTER → 2022-06-06 | Outpatient (CLI) | payer MEDICARE, OTHER ==
--- NOTE | 2022-06-06 11:21 | US ---
EXAMINATION TYPE: US venous doppler duplex LE DATE OF EXAM: 06/06/2022 10:45 AM COMPARISON: NONE CLINICAL HISTORY: M79.605 LEFT LEG PAIN. SIDE PERFORMED: Bilateral TECHNIQUE: The lower extremity deep venous system is examined utilizing real time linear array sonog roxana with graded compression, doppler sonography and color-flow sonography. VESSELS IMAGED: Common Femoral Vein Deep Femoral Vein Greater Saphenous Vein * Femoral Vein Popliteal Vein Small Saphenous Vein * Proximal Calf Veins (* superficial vessels) Right Leg: Negative for DVT Left Leg: Negative for DVT IMPRESSION: No evidence for DVT at this time.
== END | disposition home or self-care (01) ==
LOC: RADUSWWP 10:39
PROVIDERS: ATTEND Internal Medicine
DX: M79.605 Pain in left leg (principal)
CPT/HCPCS: 93970

== ENCOUNTER 2022-09-30 17:05 | Inpatient (IN) | payer MEDICARE, OTHER ==
[2022-09-30] MEDS ORDERED: SODIUM CHLORIDE 0.9% 500 ML 500 ML IV STA (17:25)
--- NOTE | 2022-09-30 18:01 | XR ---
EXAMINATION TYPE: XR chest 2V DATE OF EXAM: 09/30/2022 COMPARISON: 08/26/[address] 04/18/2022 HISTORY: 67-year-old female with weakness TECHNIQUE: PA and lateral views FINDINGS: The cardiomediastinal silhouette, aorta, and pulmonary vasculature are within normal limits. Hyperinf lation. Otherwise, lungs and pleural spaces are clear. Mild compression deformities of T11 along with L3 vertebroplasty change redemonstrated. IMPRESSION: No acute cardiopulmonary process. Underlying COPD.
--- NOTE | 2022-09-30 18:05 | CT ---
EXAMINATION TYPE: CT brain yolyine wo con DATE OF EXAM: 09/30/2022 COMPARISON: 12/26/2021 HISTORY: 67-year-old female weakness, fall CT DLP: 1205.4 mGycm Automated exposure control for dose reduction was used. Technique: Examination of the head was done in axial plane without intravenous contrast. Coronal and sagittal reconstructions performed. CT of the cervical spine was obtained in axial plane without intravenous injection of contrast mater ial. Coronal and sagittal reformatted images were obtained from the axial views for evaluation of f ractures, spinal alignment and canal. FINDINGS: Head: There is no evidence of acute intracranial hemorrhage, acute ischemic changes, mass, mass-effect, or extra-axial fluid collection. There is no effacement of cerebral sulci or basal subarachnoid cister ns. There is no hydrocephalus. There is no midline shift. Patton-white matter distinction is preserv ed. Paranasal sinuses and mastoid air cells are well pneumatized. The globes are intact. Mild to moderate patchy white matter hypodensities in both cerebral hemispheres. Cervical spine: There is asymmetric effacement of the left piriform sinus which may be positional. Reference axial im age 63. This can be correlated with direct inspection when patient able. Visualized upper lungs shows subtle scattered patchy groundglass change. Mild emphysematous change al so present. No craniocervical junction abnormality, predental space widening, or prevertebral soft tissue swellin g. Scattered mild degenerative changes present especially mid and lower cervical spine. Some ligament um flavum thickening also present. There may be mild narrowing of the spinal canal at both C5-C6 and C6-C7. No acute fracture of the cervical spine. Alignment is maintained. Sagittal and coronal reformatted images confirm above findings. COMBINED IMPRESSION: 1. Mild to moderate patchy changes of chronic small vessel ischemic disease. No acute intracranial ab normality seen. 2. Incidental: Multifocal mild groundglass infiltrates in the visualized upper lungs. Correlate for p ossible etiologies such as interstitial pneumonitis or atypical/COVID pneumonia. 3. Mild degenerative change mid to lower cervical spine. No acute fracture or malalignment.
[2022-09-30 18:25] LABS: Basophils % (A) 0 %; Eosinophils # (A) 0.1 k/uL (0-0.7); Eosinophils % (A) 1 %; HCT 29.4 % (34.0-46.0); HGB 10.1 gm/dL (11.4-16.0); Lymphocytes # (A) 1.1 k/uL (1.0-4.8); Lymphocytes % (A) 11 %; MCH 34.2 pg (25.0-35.0); MCHC 34.3 g/dL (31.0-37.0); MCV 99.7 fL (80.0-100.0); Macrocytosis Slight; Mean Platelet Volume 7.6; Monocytes # (A) 0.4 k/uL (0-1.0); Monocytes % (A) 4 %; Neutrophils # (A) 8.3 k/uL (1.3-7.7); Neutrophils % (A) 84 %; Platelet Count 266 k/uL (150-450); Poikilocytosis Slight; RBC 2.94 m/uL (3.80-5.40); RDW 15.3 % (11.5-15.5); WBC 9.9 k/uL (3.8-10.6)
[2022-09-30 18:34] LABS: Appearance,Urine Clear (Clear); Bacteria,Urine Rare /hpf; Bilirubin,Urine Negative (Negative); Blood,Urine Moderate (Negative); Color,Urine Yellow; Glucose,Urine (UA) Negative (Negative); Granular Casts,Urine 27 /lpf (0); Hyaline Casts,Urine 14 /lpf (0-2); Ketones,Urine Trace (Negative); Leukocyte Esterase,Urine Negative (Negative); Nitrite,Urine Negative (Negative); Protein,Urine 2+ (Negative); RBC,Urine 4 /hpf (0-5); Specific Gravity,Urine 1.012 (1.001-1.035); Squamous Epithelial Cell,Urine 2 /hpf (0-4); Urobilinogen,Urine <2.0 mg/dL (<2.0); WBC,Urine 5 /hpf (0-5)
[2022-09-30 18:41] LABS: ALT 23 U/L (4-34); African American GFR (CKD) 33 (>60 ml/min/1.73 sqM); Albumin 4.5 g/dL (3.5-5.0); Anion Gap 20 mmol/L; Blood Urea Nitrogen 24 mg/dL (7-17); Carbon Dioxide 10 mmol/L (22-30); Chloride 114 mmol/L (98-107); Glucose 103 mg/dL (74-99); Non-African American GFR(CKD) 29 (>60 ml/min/1.73 sqM); Phosphorus 3.2 mg/dL (2.5-4.5); Sodium 144 mmol/L (137-145); Total Bilirubin 0.9 mg/dL (0.2-1.3)
[2022-09-30 18:45] LABS: INR 1.1 (<1.2); Prothrombin Time 11.5 sec (9.0-12.0)
[2022-09-30 18:52] LABS: Partial Thromboplastin Time 18.9 sec (22.0-30.0)
[2022-09-30 18:58] LABS: Calcium 5.4 mg/dL (8.4-10.2)
[2022-09-30 18:59] LABS: AST 37 U/L (14-36); Alkaline Phosphatase 36 U/L (38-126); Magnesium <0.4 mg/dL (1.6-2.3); Total Protein 7.5 g/dL (6.3-8.2)
[2022-09-30 19:01] LABS: Potassium 2.6 mmol/L (3.5-5.1)
--- NOTE | 2022-09-30 19:01 | ED ---
General Adult HPI - General Chief complaint: Recheck/Abnormal Lab/Rx Stated complaint: "not feeling well" Time Seen by Provider: 09/30/22 17:15 Source: patient, EMS Mode of arrival: EMS Limitations: no limitations - History of Present Illness Initial comments: Patient is a 67-year-old female presenting presenting with chief complaint of tremors. Patient states she has had intermittent episodes of tremors over the last week. She states that during these episodes if she tries to do something like return arm out she experiences what sounds like episodes of ataxia and jerking of the extremity. Patient does have history of TIAs. She denies any chest pain or difficulty breathing. No palpitations. No cough, congestion, sore throat. No fevers or chills. No abdominal pain, nausea, vomiting. No headache, vision or hearing changes, numbness, tingling. Patient lives alone states that she falls frequently. - Related Data Home Medications Medication Instructions Recorded Confirmed Folic Acid 1 mg PO DAILY 05/24/17 09/30/22 QUEtiapine [SEROquel] 50 mg PO HS 06/22/20 09/30/22 Ergocalciferol (Vitamin D2) 1,250 mcg PO MO 01/31/21 09/30/22 [Drisdol (50,000 Iu)] DULoxetine HCL [Cymbalta] 60 mg PO AC-BRKFST 05/17/21 09/30/22 Gabapentin [Neurontin] 300 mg PO TID 05/17/21 09/30/22 Lipase/Protease/Amylase [Zenpep Dr 1 cap PO PC-TID PRN 05/17/21 09/30/22 40,000 Unit Capsule] ALPRAZolam [Xanax] 0.25 mg PO BID PRN 08/24/22 09/30/22 Acetaminophen with Codeine 1 - 2 tab PO Q8H PRN 08/24/22 09/30/22 [Tylenol #4 Tablet] DULoxetine HCL [Cymbalta] 30 mg PO PC-LUNCH 08/24/22 09/30/22 Torsemide [Demadex] 20 mg PO DAILY PRN 08/24/22 09/30/22 methocarbamoL [Robaxin] 500 mg PO TID PRN 08/24/22 09/30/22 traZODone HCL 150 mg PO PC-LUNCH 08/24/22 09/30/22 QUEtiapine FUMARATE [SEROquel XR] 150 mg PO DAILY@1900 09/30/22 09/30/22 Previous Rx's Medication Instructions Recorded Calcium Carbonate [Tums] 500 mg PO TID 7 Days #21 tab 08/27/22 Cyanocobalamin [Vitamin B-12] 1,000 mcg PO DAILY #30 tablet 08/27/22 Pantoprazole [Protonix] 40 mg PO AC-BID #60 tab 08/27/22 Allergies Allergy/AdvReac Type Severity Reaction Status Date / Time divalproex sodium Allergy Unknown Verified 09/30/22 19:18 [From Depakote] ketorolac [From Toradol] Allergy Unknown Verified 09/30/22 19:18 Penicillins Allergy Anaphylaxis Verified 09/30/22 19:18 shellfish derived [Shellfish] Allergy Rash/Hives Verified 09/30/22 19:18 strawberry Allergy Rash/Hives Verified 09/30/22 19:18 alcohol AdvReac Vomiting Verified 09/30/22 19:18 aspirin AdvReac Nausea & Verified 09/30/22 19:18 Vomiting erythromycin base AdvReac Dyspnea Verified 09/30/22 19:18 Sulfa (Sulfonamide AdvReac Dyspnea & Verified 09/30/22 19:18 Antibiotics) Nausea/Vomiting Dial Soap Allergy Unknown Rash/Hives, Uncoded 09/30/22 19:18 itching Review of Systems ROS Statement: Those systems with pertinent positive or pertinent negative responses have been documented in the HPI. ROS Other: All systems not noted in ROS Statement are negative. Past Medical History Past Medical History: Cancer, COPD, CVA/TIA, Fibromyalgia, Hypertension Additional Past Medical History / Comment(s): Lupus, TIA, right hand tendons severed, closed head injury, multiple sclerosis, short bowel syndrome, panc reatic insufficiency, bowel cancer History of Any Multi-Drug Resistant Organisms: C-DIFF Date of last positivie culture/infection: 2014 MDRO Source:: patient Past Surgical History: Back Surgery Additional Past Surgical History / Comment(s): stomach cancer, right hemicolectomy and small bowel resection. Back surgery by 3 weeks ago Past Anesthesia/Blood Transfusion Reactions: No Reported Reaction Additional Past Anesthesia/Blood Transfusion Reaction / Comment(s): States she thinks her father may have had some problems with anesthesia but is not sure what they were. Past Psychological History: Anxiety, Bipolar, Depression, PTSD Smoking Status: Current every day smoker - Past Family History Father Family Medical History: No Reported History Additional Family Medical History / Comment(s): . Mother Family Medical History: No Reported History Additional Family Medical History / Comment(s): . Sister(s) Family Medical History: No Reported History Additional Family Medical History / Comment(s): Patient has sisters all have female problems. She does state there is breast cancer history in her aunt. Son(s) Family Medical History: No Reported History Additional Family Medical History / Comment(s): . Brother(s) Family Medical History: Cancer Additional Family Medical History / Comment(s): esophageal cancer General Exam Limitations: no limitations General appearance: alert, in no apparent distress Head exam: Present: atraumatic, normocephalic, normal inspection Eye exam: Present: normal appearance, EOMI. Absent: periorbital swelling, periorbital tenderness Neck exam: Present: normal inspection Respiratory exam: Present: wheezes. Absent: respiratory distress, rales, rhonchi, stridor Cardiovascular Exam: Present: regular rate, normal rhythm, normal heart sounds. Absent: systolic murmur, diastolic murmur, rubs, gallop, clicks GI/Abdominal exam: Present: soft. Absent: distended, tenderness, guarding, rebound, rigid Neurological exam: Present: alert, oriented X3, CN II-XII intact Expanded Patient oriented to: Present: person, place, time Speech: Present: fluid speech Cranial nerves: EOM's Intact: Normal, Facial Sensation: Normal Cerebellar function: Finger to Nose: Normal Sensory exam: Upper Extremity Light Touch: Normal, Lower Extremity Light Touch: Normal Motor strength exam: RUE: 5, LUE: 5, RLE: 5, LLE: 5 Eye Response: (4) open spontaneously Motor Response: (6) obeys commands Verbal Response: (5) oriented Isauro Total: 15 Psychiatric exam: Present: normal affect, normal mood Skin exam: Present: warm, dry, intact, normal color. Absent: rash Course Vital Signs 09/30/22 09/30/22 09/30/22 17:07 18:58 20:21 Temperature 97.9 F Pulse Rate 65 82 64 Respiratory 18 18 18 Rate Blood Pressure 129/84 130/85 131/75 O2 Sat by Pulse 100 100 97 Oximetry EKG Findings - EKG Comments: EKG Findings:: Sinus bradycardia ventricular rate 59. MS interval 172. QRS 96. QTc 429. QTc 427. Medical Decision Making - Medical Decision Making Was pt. sent in by a medical professional or institution ([facility], FRONT DESK ADMINISTRATOR, urgent care, hospital, or senior living...) When possible be specific @ -No Did you speak to anyone other than the patient for history (EMS, parent, family, police, friend...)? What history was obtained from this source @ -Patient's son at bedside Did you review nursing and triage notes (agree or disagree)? Why? @ -I reviewed and agree with nursing and triage notes Were old charts reviewed (outside hosp., previous admission, EMS record, old EKG, old radiological studies, urgent care reports/EKG's, senior living records)? Report findings @ -No old charts were reviewed Differential Diagnosis (chest pain, altered mental status, abdominal pain women, abdominal pain men, vaginal bleeding, weakness, fever, dyspnea, syncope, headache, dizziness, GI bleed, back pain, seizure, CVA, palpatations, mental health, musculoskeletal)? @ -[facility] Differential Weakness: Hypoglycemia, shock, sepsis, hyponatremia, anemia, infection, NC, ETOH, adverse medicine reaction, overdose, stroke. ... This is not meant to be an all-in clusive list EKG interpreted by me (3pts min.). @ -As above X-rays interpreted by me (1pt min.). @ -Chest x-ray shows no acute process, COPD changes noted CT interpreted by me (1pt min.). @ -CT shows no acute intracranial process or fracture of the cervical spine. Incidental finding of multifocal mild groundglass infiltrates visualized in the upper lungs U/S interpreted by me (1pt. min.). @ -None done What testing was considered but not performed or refused? (CT, X-rays, U/S, labs)? Why? @ -None What meds were considered but not given or refused? Why? @ -None Did you discuss the management of the patient with other professionals (professionals i.e. [facility], FRONT DESK ADMINISTRATOR, lab, RT, psych nurse, social media marketer, business office specialist, teacher, chief human resources officer, caser)? Give summary @ -Discussed with admitting physician Dr. Haq Was smoking cessation discussed for >3mins.? @ -No Was critical care preformed (if so, how long)? @ -No Were there social determinants of health that impacted care today? How? (Homelessness, low income, unemployed, alcoholism, drug addiction, transportation, low edu. Level, literacy, decrease access to med. care, fdc, re hab)? @ -No Was there de-escalation of care discussed even if they declined (Discuss DNR or withdrawal of care, Hospice)? DNR status @ -No What co-morbidities impacted this encounter? (DM, HTN, Smoking, COPD, CAD, Cancer, CVA, ARF, Chemo, Hep., AIDS, mental health diagnosis, sleep apnea, morbid obesity)? @ -None Was patient admitted / discharged? Hospital course, mention meds given and route, prescriptions, significant lab abnormalities, going to OR and other pertinent info. @ -Admitted. Patient is a 67-year-old female presenting with chief complaint of muscle spasming and generalized weakness. On physical examination no focal neurological deficits. No leukocytosis, hemoglobin 10.1 consistent with baseline. Potassium 2.6, calcium 5.4, corrected calcium 5. Magnesium less than 0.4. EKG shows bradycardia. Head CT shows no acute intracranial process or cervical spine fracture. Chest x-ray shows no acute process COPD changes noted. Patient is started on potassium, magnesium, and calcium replacement. I spoke with her PCP Dr. Haq accepted admission. Patient is agreeable with this plan. I discussed this case with my attending Dr. Benson. Undiagnosed new problem with uncertain prognosis? @ -No Drug Therapy requiring intensive monitoring for toxicity (Heparin, Nitro, Insulin, Cardizem)? @ -No Were any procedures done? @ -No Diagnosis/symptom? @ -Hypokalemia, hypomagnesemia, hypocalcemia Acute, or Chronic, or Acute on Chronic? @ -Acute Uncomplicated (without systemic symptoms) or Complicated (systemic symptoms)? @ -Complicated Side effects of treatment? @ -No Exacerbation, Progression, or Severe Exacerbation? @ -No Poses a threat to life or bodily function? How? (Chest pain, USA, NC, pneumonia, PE, COPD, DKA, ARF, appy, cholecystitis, CVA, Diverticulitis, Homicidal, Suicidal, threat to staff... and all critical care pts) @ -Yes - Lab Data Result diagrams: 09/30/22 17:50 09/30/22 17:50 Lab Results 09/30/22 09/30/22 09/30/22 Range/Units 17:50 17:50 17:50 WBC 9.9 (3.8-10.6) k/uL RBC 2.94 L (3.80-5.40) m/uL Hgb 10.1 L (11.4-16.0) gm/dL Hct 29.4 L (34.0-46.0) % MCV 99.7 (80.0-100.0) fL MCH 34.2 (25.0-35.0) pg MCHC 34.3 (31.0-37.0) g/dL RDW 15.3 (11.5-15.5) % Plt Count 266 (150-450) k/uL MPV 7.6 Neutrophils % 84 % Lymphocytes % 11 % Monocytes % 4 % Eosinophils % 1 % Basophils % 0 % Neutrophils # 8.3 H (1.3-7.7) k/uL Lymphocytes # 1.1 (1.0-4.8) k/uL Monocytes # 0.4 (0-1.0) k/uL Eosinophils # 0.1 (0-0.7) k/uL Basophils # 0.0 (0-0.2) k/uL Poikilocytosis Slight Macrocytosis Slight PT 11.5 (9.0-12.0) sec INR 1.1 (<1.2) APTT 18.9 L (22.0-30.0) sec Sodium (137-145) mmol/L Potassium (3.5-5.1) mmol/L Chloride (98-107) mmol/L Carbon Dioxide (22-30) mmol/L Anion Gap mmol/L BUN (7-17) mg/dL Creatinine (0.52-1.04) mg/dL Est GFR (CKD-EPI)AfAm (>60 ml/min/1.73 sqM) Est GFR (CKD-EPI)NonAf (>60 ml/min/1.73 sqM) Glucose (74-99) mg/dL Plasma Lactic Acid Cristiano (0.7-2.0) mmol/L Calcium (8.4-10.2) mg/dL Phosphorus (2.5-4.5) mg/dL Magnesium (1.6-2.3) mg/dL Total Bilirubin (0.2-1.3) mg/dL AST (14-36) U/L ALT (4-34) U/L Alkaline Phosphatase (38-126) U/L Troponin I (0.000-0.034) ng/mL Total Protein (6.3-8.2) g/dL Albumin (3.5-5.0) g/dL TSH (0.465-4.680) mIU/L Urine Color Yellow Urine Appearance Clear (Clear) Urine pH 6.0 (5.0-8.0) Ur Specific [place] 1.012 (1.001-1.035) Urine Protein 2+ H (Negative) Urine Glucose (UA) Negative (Negative) Urine Ketones Trace H (Negative) Urine Blood Moderate H (Negative) Urine Nitrite Negative (Negative) Urine Bilirubin Negative (Negative) Urine Urobilinogen <2.0 (<2.0) mg/dL Ur Leukocyte Esterase Negative (Negative) Urine RBC 4 (0-5) /hpf Urine WBC 5 (0-5) /hpf Ur Squamous Epith Cells 2 (0-4) /hpf Urine Bacteria Rare H (None) /hpf Hyaline Casts 14 H (0-2) /lpf Granular Casts 27 (0) /lpf Coronavirus (PCR) (Not Detectd) 09/30/22 09/30/22 09/30/22 Range/Units 17:50 17:50 17:50 WBC (3.8-10.6) k/uL RBC (3.80-5.40) m/uL Hgb (11.4-16.0) gm/dL Hct (34.0-46.0) % MCV (80.0-100.0) fL MCH (25.0-35.0) pg MCHC (31.0-37.0) g/dL RDW (11.5-15.5) % Plt Count (150-450) k/uL MPV Neutrophils % % Lymphocytes % % Monocytes % % Eosinophils % % Basophils % % Neutrophils # (1.3-7.7) k/uL Lymphocytes # (1.0-4.8) k/uL Monocytes # (0-1.0) k/uL Eosinophils # (0-0.7) k/uL Basophils # (0-0.2) k/uL Poikilocytosis Macrocytosis PT (9.0-12.0) sec INR (<1.2) APTT (22.0-30.0) sec Sodium 144 (137-145) mmol/L Potassium 2.6 L* (3.5-5.1) mmol/L Chloride 114 H (98-107) mmol/L Carbon Dioxide 10 L (22-30) mmol/L Anion Gap 20 mmol/L BUN 24 H (7-17) mg/dL Creatinine 1.79 H (0.52-1.04) mg/dL Est GFR (CKD-EPI)AfAm 33 (>60 ml/min/1.73 sqM) Est GFR (CKD-EPI)NonAf 29 (>60 ml/min/1.73 sqM) Glucose 103 H (74-99) mg/dL Plasma Lactic Acid Cristiano 1.1 (0.7-2.0) mmol/L Calcium 5.4 L* (8.4-10.2) mg/dL Phosphorus 3.2 (2.5-4.5) mg/dL Magnesium <0.4 L* (1.6-2.3) mg/dL Total Bilirubin 0.9 (0.2-1.3) mg/dL AST 37 H (14-36) U/L ALT 23 (4-34) U/L Alkaline Phosphatase 36 L (38-126) U/L Troponin I 0.020 (0.000-0.034) ng/mL Total Protein 7.5 (6.3-8.2) g/dL Albumin 4.5 (3.5-5.0) g/dL TSH 1.590 (0.465-4.680) mIU/L Urine Color Urine Appearance (Clear) Urine pH (5.0-8.0) Ur Specific [place] (1.001-1.035) Urine Protein (Negative) Urine Glucose (UA) (Negative) Urine Ketones (Negative) Urine Blood (Negative) Urine Nitrite (Negative) Urine Bilirubin (Negative) Urine Urobilinogen (<2.0) mg/dL Ur Leukocyte Esterase (Negative) Urine RBC (0-5) /hpf Urine WBC (0-5) /hpf Ur Squamous Epith Cells (0-4) /hpf Urine Bacteria (None) /hpf Hyaline Casts (0-2) /lpf Granular Casts (0) /lpf Coronavirus (PCR) (Not Detectd) 09/30/22 Range/Units 18:29 WBC (3.8-10.6) k/uL RBC (3.80-5.40) m/uL Hgb (11.4-16.0) gm/dL Hct (34.0-46.0) % MCV (80.0-100.0) fL MCH (25.0-35.0) pg MCHC (31.0-37.0) g/dL RDW (11.5-15.5) % Plt Count (150-450) k/uL MPV Neutrophils % % Lymphocytes % % Monocytes % % Eosinophils % % Basophils % % Neutrophils # (1.3-7.7) k/uL Lymphocytes # (1.0-4.8) k/uL Monocytes # (0-1.0) k/uL Eosinophils # (0-0.7) k/uL Basophils # (0-0.2) k/uL Poikilocytosis Macrocytosis PT (9.0-12.0) sec INR (<1.2) APTT (22.0-30.0) sec Sodium (137-145) mmol/L Potassium (3.5-5.1) mmol/L Chloride (98-107) mmol/L Carbon Dioxide (22-30) mmol/L Anion Gap mmol/L BUN (7-17) mg/dL Creatinine (0.52-1.04) mg/dL Est GFR (CKD-EPI)AfAm (>60 ml/min/1.73 sqM) Est GFR (CKD-EPI)NonAf (>60 ml/min/1.73 sqM) Glucose (74-99) mg/dL Plasma Lactic Acid Cristiano (0.7-2.0) mmol/L Calcium (8.4-10.2) mg/dL Phosphorus (2.5-4.5) mg/dL Magnesium (1.6-2.3) mg/dL Total Bilirubin (0.2-1.3) mg/dL AST (14-36) U/L ALT (4-34) U/L Alkaline Phosphatase (38-126) U/L Troponin I (0.000-0.034) ng/mL Total Protein (6.3-8.2) g/dL Albumin (3.5-5.0) g/dL TSH (0.465-4.680) mIU/L Urine Color Urine Appearance (Clear) Urine pH (5.0-8.0) Ur Specific [place] (1.001-1.035) Urine Protein (Negative) Urine Glucose (UA) (Negative) Urine Ketones (Negative) Urine Blood (Negative) Urine Nitrite (Negative) Urine Bilirubin (Negative) Urine Urobilinogen (<2.0) mg/dL Ur Leukocyte Esterase (Negative) Urine RBC (0-5) /hpf Urine WBC (0-5) /hpf Ur Squamous Epith Cells (0-4) /hpf Urine Bacteria (None) /hpf Hyaline Casts (0-2) /lpf Granular Casts (0) /lpf Coronavirus (PCR) Not Detected (Not Detectd) Disposition Clinical Impression: Hypokalemia, Hypocalcemia, Hypomagnesemia Disposition: ADMITTED IP TO THIS HOSP Condition: Fair Time of Disposition: 19:20
[2022-09-30] MEDS ORDERED: Magnesium Replacement Protocol 1 EACH MISC MISCELLANE PRN (19:03)
[2022-09-30] MEDS ORDERED: Potassium Replacement Protocol 1 EACH MISC MISCELLANE PRN (19:03)
[2022-09-30] MEDS ORDERED: CALCIUM GLUCONATE IN NACL 2 GM in SALINE 1 100ML.BAG IVPB ONE (19:05)
[2022-09-30] MEDS ORDERED: NALOXONE 0.4 MG/ML 1 ML VIAL IV PRN (19:21)
[2022-09-30] MEDS: MAGNESIUM SULFATE-D5W PMX 1 GM in DEXTROSE/WATER 1 100ML.BAG IVPB SCH ×4 (19:30→23:34)
[2022-09-30] MEDS: POTASSIUM CHLORIDE ER 20 MEQ TAB.ER PO SCH ×3 (19:30→21:48)
[2022-09-30] MEDS ORDERED: ONDANSETRON 4 MG/2 ML VIAL IVP STA (19:41)
[2022-10-01 00:38] LABS: Magnesium 2.8 mg/dL (1.6-2.3)
[2022-10-01 00:40] LABS: Calcium 6.3 mg/dL (8.4-10.2); Potassium 2.5 mmol/L (3.5-5.1)
[2022-10-01] MEDS: POTASSIUM CHLORIDE 10 MEQ in WATER FOR INJECTION 1 100ML.BAG IVPB SCH ×7 (01:01→23:38)
[2022-10-01 08:36] LABS: Albumin 3.6 g/dL (3.5-5.0); Magnesium 2.3 mg/dL (1.6-2.3); Potassium 2.9 mmol/L (3.5-5.1); Total Bilirubin 0.7 mg/dL (0.2-1.3); Total Protein 6.1 g/dL (6.3-8.2)
[2022-10-01 08:39] LABS: Calcium 6.2 mg/dL (8.4-10.2)
[2022-10-01] MEDS ORDERED: POTASSIUM CHLORIDE ER 20 MEQ TAB.ER PO SCH (09:46)
[2022-10-01] MEDS ORDERED: POTASSIUM CHLORIDE 10 MEQ in WATER FOR INJECTION 1 100ML.BAG IVPB STA (09:46)
[2022-10-01] MEDS ORDERED: POTASSIUM CHLORIDE 10 MEQ in WATER FOR INJECTION 1 100ML.BAG IVPB SCH ×2 (10:00→19:00)
[2022-10-01] MEDS ORDERED: POTASSIUM BICARBONATE/CIT AC 20 MEQ TABLET.EFF PO SCH (11:00)
[2022-10-01] MEDS ORDERED: DEXTROSE 5% IN WATER 1,000 ML with SODIUM BICARB (1 MEQ/ML) 150 ML IV SCH (11:00)
[2022-10-01] MEDS: POTASSIUM BICARBONATE/CIT AC 20 MEQ TABLET.EFF PO SCH ×3 (11:16→16:20)
--- NOTE | 2022-10-01 11:22 | P.NPCON ---
History of Present Illness - Reason for Consult Consult date: 10/01/22 acute renal failure - Chief Complaint Acute kidney injury - History of Present Illness This is a 67-year-old female seen in consultation because of acute kidney injury and multiple electrolyte abnormalities. Presenting complaints were increasing diarrhea numbness tingling and dizziness. She had more stools than usual. No nausea vomiting no fever chills no GI bleeding. Admission labs showed potassium of 2.6 acute kidney injury creatinine 1.79, severe gap and non-gap acidosis bicarb of 10 and gap of 20, severe hypomagnesemia with magnesium less than 0.4, calcium is 5.4 She is known with colon cancer and had right hemicolectomy. She has short bowel syndrome with multiple stools everyday. Also has pancreatic insufficiency history of lupus multiple sclerosis COPD. She was recently admitted and had EGD done which showed 2 superficial erosion in the lower esophagus as well as diffuse mild gastritis. She was discharged on Protonix 40 mg daily. Currently she is feeling much better but weak Past Medical History Past Medical History: Cancer, COPD, CVA/TIA, Fibromyalgia, Hypertension Additional Past Medical History / Comment(s): TIA, right hand tendons severed and repaired, closed head injury, multiple sclerosis, short bowel syndrome, pancreatic insufficiency, bowel cancer History of Any Multi-Drug Resistant Organisms: C-DIFF Date of last positivie culture/infection: 2014 MDRO Source:: patient Past Surgical History: Back Surgery Additional Past Surgical History / Comment(s): stomach cancer, right hemicolectomy and small bowel resection. Back surgery by Past Anesthesia/Blood Transfusion Reactions: No Reported Reaction Additional Past Anesthesia/Blood Transfusion Reaction / Comment(s): States she thinks her father may have had some problems with anesthesia but is not sure what they were. Past Psychological History: Anxiety, Bipolar, Depression, PTSD Smoking Status: Current every day smoker Past Alcohol Use History: None Reported Additional Past Alcohol Use History / Comment(s): Patient is a smoker of 2-3 packs per day since she was 12 years of age and has recently cut back to 1 pack per week Past Drug Use History: None Reported - Past Family History Father Family Medical History: No Reported History Additional Family Medical History / Comment(s): . Mother Family Medical History: No Reported History Additional Family Medical History / Comment(s): . Sister(s) Family Medical History: No Reported History Additional Family Medical History / Comment(s): Patient has sisters all have female problems. She does state there is breast cancer history in her aunt. Son(s) Family Medical History: No Reported History Additional Family Medical History / Comment(s): . Brother(s) Family Medical History: Cancer Additional Family Medical History / Comment(s): esophageal cancer Medications and Allergies Home Medications Medication Instructions Recorded Confirmed Type Folic Acid 1 mg PO DAILY 05/24/17 09/30/22 History QUEtiapine [SEROquel] 50 mg PO HS 06/22/20 09/30/22 History Ergocalciferol (Vitamin D2) 1,250 mcg PO MO 01/31/21 09/30/22 History [Drisdol (50,000 Iu)] DULoxetine HCL [Cymbalta] 60 mg PO AC-BRKFST 05/17/21 09/30/22 History Gabapentin [Neurontin] 300 mg PO TID 05/17/21 09/30/22 History Lipase/Protease/Amylase [Zenpep Dr 1 cap PO PC-TID PRN 05/17/21 09/30/22 History 40,000 Unit Capsule] ALPRAZolam [Xanax] 0.25 mg PO BID PRN 08/24/22 09/30/22 History Acetaminophen with Codeine 1 - 2 tab PO Q8H PRN 08/24/22 09/30/22 History [Tylenol #4 Tablet] DULoxetine HCL [Cymbalta] 30 mg PO PC-LUNCH 08/24/22 09/30/22 History Torsemide [Demadex] 20 mg PO DAILY PRN 08/24/22 09/30/22 History methocarbamoL [Robaxin] 500 mg PO TID PRN 08/24/22 09/30/22 History traZODone HCL 150 mg PO PC-LUNCH 08/24/22 09/30/22 History Calcium Carbonate [Tums] 500 mg PO TID 7 Days #21 tab 08/27/22 09/30/22 Rx Cyanocobalamin [Vitamin B-12] 1,000 mcg PO DAILY #30 tablet 08/27/22 09/30/22 Rx Pantoprazole [Protonix] 40 mg PO AC-BID #60 tab 08/27/22 09/30/22 Rx QUEtiapine FUMARATE [SEROquel XR] 150 mg PO DAILY@1900 09/30/22 09/30/22 History Allergies Allergy/AdvReac Type Severity Reaction Status Date / Time divalproex sodium Allergy Unknown Verified 09/30/22 19:18 [From Depakote] ketorolac [From Toradol] Allergy Unknown Verified 09/30/22 19:18 Penicillins Allergy Anaphylaxis Verified 09/30/22 19:18 shellfish derived [Shellfish] Allergy Rash/Hives Verified 09/30/22 19:18 strawberry Allergy Rash/Hives Verified 09/30/22 19:18 alcohol AdvReac Vomiting Verified 09/30/22 19:18 aspirin AdvReac Nausea & Verified 09/30/22 19:18 Vomiting erythromycin base AdvReac Dyspnea Verified 09/30/22 19:18 Sulfa (Sulfonamide AdvReac Dyspnea & Verified 09/30/22 19:18 Antibiotics) Nausea/Vomiting Dial Soap Allergy Unknown Rash/Hives, Uncoded 09/30/22 19:18 itching Physical Exam Vitals: Vital Signs Temp Pulse Pulse Resp BP BP Pulse Ox 10/01/22 08:00 70 18 138/75 100 10/01/22 03:44 61 18 143/73 100 10/01/22 02:48 61 18 143/73 100 10/01/22 02:00 61 18 10/01/22 01:52 63 18 127/94 100 10/01/22 01:02 61 16 138/85 09/30/22 23:34 70 15 124/90 100 09/30/22 21:43 98 F 62 15 141/52 100 09/30/22 20:21 64 18 131/75 97 09/30/22 18:58 82 18 130/85 100 09/30/22 17:07 97.9 F 65 18 129/84 100 Intake and Output 09/30/22 10/01/22 10/01/22 22:59 06:59 14:59 Intake Total 240 Balance 240 Intake: Oral 240 Other: Voiding Method Toilet Toilet # Voids 1 Weight 39.009 kg 39.009 kg On examination she is cachectic small built. HEENT exam no JVP neck is supple no facial asymmetry Lungs clear to auscultation good air entry bilaterally Heart sounds unremarkable Abdomen soft nontender Extremity exam was no edema Neurologically awake alert oriented no asterixis no tremors. No carpopedal spasm denies any perioral paresthesias Results - Lab Results Most recent lab results Calcium 6.2 mg/dL (8.4-10.2) L* 10/01/22 08:01 Phosphorus 3.2 mg/dL (2.5-4.5) 09/30/22 17:50 Magnesium 2.3 mg/dL (1.6-2.3) 10/01/22 08:01 09/30/22 17:50 10/01/22 08:01 Assessment and Plan Plan: Impression 1. Acute kidney injury secondary to volume the patient from excessive stools. 2. Severe hypomagnesemia from GI losses may be made worse by 3. Hypokalemia Scan to GI Losses and and Hypomagnesemia. 4. Severe Gap and Non-Gap Acidosis from Acute Kidney Injury and GI Losses 5. Hypocalcemia to SecondaryHypomagnesemia and Possibly Vitamin D Deficiency from Short Bowel Syndrome. 6. CT of the head and neck shows some upper lobe infiltrate but the chest x-ray was clear:Covid Negative. Recommendation 1. Check vitamin D 25-hydroxy level, vitamin D 1, 25 dihydroxy level, 2. Continue IV fluids lactated Ringer's at 75 mL an hour 3. Magnesium has been replenished 4. IV calcium gluconate 2 g now and repeat in 4 hours 5. Patient is currently on potassium 40 mEq every one hour for 3 doses, 6. Avoid PPIs possible because of the hypomagnesemia and diarrhea. 7. Start sodium bicarbonate 6 and 52 tablets 3 times a day, given calcium is being replaced and is coming up so the risk of alkalosis causing reduction His calcium is low Close follow-up of labs
[2022-10-01] MEDS ORDERED: CALCIUM GLUCONATE IN NACL 2 GM in SALINE 1 100ML.BAG IVPB ONE (12:00)
[2022-10-01] MEDS ORDERED: ALPRAZolam 0.25 MG TAB PO PRN (12:13)
[2022-10-01] MEDS ORDERED: Acetaminophen-Codeine 300-30mg TAB PO PRN (12:13)
[2022-10-01] MEDS ORDERED: LIPASE 20,000/PROTEASE 63,000/AMYLASE 84,000 PO PRN (12:13)
[2022-10-01] MEDS ORDERED: methocarbamoL 500 MG TAB PO PRN (12:13)
[2022-10-01] MEDS ORDERED: IOPAMIDOL CONTRAST (ORAL USE) VIAL PO PRN (12:14)
[2022-10-01] MEDS: SODIUM BICARBONATE TAB 650 MG TAB PO SCH ×3 (12:22→20:33)
[2022-10-01] MEDS: LACTATED RINGERS 1,000 ML IV SCH (12:31)
--- NOTE | 2022-10-01 12:55 | HP ---
HISTORY AND PHYSICAL CHIEF COMPLAINTS: Not feeling well, diarrhea, and electrolyte imbalance. HISTORY OF PRESENT ILLNESS: This 67-year-old woman with past medical history of multiple medical issues, recently had a back surgery. The patient is complaining of weakness, tiredness, and diarrhea for the last several days. Patient had previous history of C diff. The patient presents to [facility], has multiple electrolyte abnormalities and also some metabolic acidosis, renal failure. The patient admitted for further evaluation and treatment. The patient also hypocalcemia. There is no history of any fever, rigors, or chills. PAST MEDICAL HISTORY: Reviewed, include COPD, CVA, TIA and rest of the history and rest of the chart is also reviewed. HOME MEDICATIONS: Reviewed include trazodone, dose and rest of medications reviewed. ALLERGIES: Include Ketoralac and rest of the allergies reviewed. FAMILY HISTORY: No history of heart disease or strokes in the family. SOCIAL HISTORY: History of smoking. No history of alcohol intake. REVIEW OF SYSTEMS: A 14-point review is negative except as mentioned. PHYSICAL EXAMINATION: VITAL SIGNS: Pulse 61, blood pressure n, respirations 18. HEENT: Conjunctivae normal. NECK: No jugular venous distention. Oral mucosa dry. CHEST: Clear to auscultation. CARDIOVASCULAR: S1, S2 muffled. ABDOMEN: Soft, scaphoid, mild diffuse tenderness. LEGS: No edema, no swelling. NERVOUS SYSTEM: No focal deficits, significantly weak. SKIN: No ulcer, rash, bleeding. LABORATORY DATA: Reviewed. ASSESSMENT: 1. Chronic diarrhea, dehydration, and acute renal failure secondary to prerenal factors. 2. Multiple electrolyte imbalance including hypokalemia, hypomagnesemia. 3. Metabolic acidosis secondary to diarrhea possibly. 4. History of chronic obstructive pulmonary disease. 5. Multiple medical issues. RECOMMENDATIONS AND DISCUSSION: This 67-year-old woman presented with multiple complex medical issues. At this time, I recommend continue the current medications, continue symptomatic treatment. Repeat lytes. Even after replacement, the potassium is only 2.9, I will repeat the lytes and nephrology evaluation, IV fluids carefully. As far as the diarrhea is concerned, I would recommend C difficile checking. I would also recommend CAT scan of the abdomen and pelvis, also possibility of a colitis. Overall prognosis is extremely guarded because of the above-mentioned multiple complex medical issues, chance of complication is high, so because of that reason, I would recommend a full admission for more than 2 midnights for this patient. Please refer to the orders for further details. This patient will definitely need more care than a simple observation. PRITESH / JAYN: [id number] / MTDD
[2022-10-01 12:58] VITALS: BMI 16.2
[2022-10-01] MEDS: traZODone HCL 50 MG TAB PO SCH (14:29)
[2022-10-01] MEDS: DULoxetine HCL 30 MG CAPSULE.DR PO SCH (14:30)
--- NOTE | 2022-10-01 15:18 | CT ---
EXAMINATION TYPE: CT abdomen pelvis wo con DATE OF EXAM: 10/01/2022 COMPARISON: 08/24/22 HISTORY: abdominal pain CT DLP: 240.8 mGycm Examination of the solid and hollow viscera is limited given the lack of contrast. FINDINGS: LUNG BASES: No evidence for nodule. No evidence for infiltrate. LIVER/GB: The gallbladder is is contracted. No space-occupying hepatic lesion. PANCREAS: No pancreatic mass identified. No inflammatory process seen. SPLEEN: No evidence for splenomegaly. No intrasplenic lesions seen. ADRENALS: No adrenal nodules identified. No evidence for thickening. KIDNEYS: No evidence for renal mass. No nephrolithiasis. No hydronephrosis. BOWEL: Dilated large bowel measuring up to 6 cm right hemicolon. Large amount of intracolonic debris is noted which may reflect a degree of fecal impaction although some of the stool content appears to be a liquid form. There are thickened conglomerate loops of bowel within the mid abdomen image 40 seq uence 201 which could reflect underlying colitis or enteritis. Clips and suture material are noted fr om prior anastomosis. There is no evidence for free air or abscess. Lymph nodes: No evidence for adenopathy greater than 1 cm. Abdominal aorta: Atheromatous changes seen. No evidence for aneurysm. Genital organs: Hysterectomy changes noted. Other: Vertebroplasty changes L3-L4. Postoperative changes right hip. IMPRESSION: 1. Correlate for large bowel ileus or changes secondary to fecal impaction. 2. Thickened conglomerate loops of bowel within the midabdomen may reflect enteritis and/or colitis n onspecific type.
[2022-10-01] MEDS: QUEtiapine 25 MG TAB PO SCH (16:20)
[2022-10-01] MEDS: PANTOPRAZOLE 40 MG TABLET PO SCH (16:20)
[2022-10-01] MEDS: CALCIUM CARBONATE 500 MG CHEWABLE PO SCH ×2 (16:29→20:34)
[2022-10-01] MEDS ORDERED: LEVOFLOXACIN 500MG-D5W PMX 500 MG in DEXTROSE/WATER 1 100ML.BAG IVPB SCH (17:00)
[2022-10-01 18:12] LABS: Calcium 7.2 mg/dL (8.4-10.2); Potassium 2.8 mmol/L (3.5-5.1)
[2022-10-01] MEDS ORDERED: Potassium Replacement Protocol 1 EACH MISC MISCELLANE PRN (18:23)
[2022-10-01] MEDS ORDERED: LEVOFLOXACIN 500MG-D5W PMX 500 MG in DEXTROSE/WATER 1 100ML.BAG IVPB ONE (20:00)
[2022-10-01] MEDS: QUEtiapine 50 MG TAB PO SCH (20:33)
[2022-10-01] MEDS: HEPARIN SODIUM,PORCINE/PF 5,000 UNIT/0.5 ML SYRINGE SQ SCH (20:34)
[2022-10-01] MEDS: metroNIDAZOLE-NS PMX 500 MG in SALINE 1 100ML.BAG IVPB SCH (22:24)
[2022-10-02] MEDS: POTASSIUM CHLORIDE 10 MEQ in WATER FOR INJECTION 1 100ML.BAG IVPB SCH ×3 (02:23→04:04)
[2022-10-02] MEDS: LACTATED RINGERS 1,000 ML IV SCH ×2 (02:25→12:48)
[2022-10-02] MEDS: metroNIDAZOLE-NS PMX 500 MG in SALINE 1 100ML.BAG IVPB SCH ×3 (04:11→22:20)
[2022-10-02] MEDS: PANTOPRAZOLE 40 MG TABLET PO SCH ×2 (06:20→16:39)
[2022-10-02] MEDS: DULoxetine HCL 60 MG CAPSULE.DR PO SCH (06:20)
[2022-10-02 08:57] LABS: Basophils % (A) 0 %; Eosinophils # (A) 0.1 k/uL (0-0.7); Eosinophils % (A) 1 %; HCT 25.6 % (34.0-46.0); Lymphocytes # (A) 0.8 k/uL (1.0-4.8); Lymphocytes % (A) 10 %; MCH 34.6 pg (25.0-35.0); MCHC 35.1 g/dL (31.0-37.0); MCV 98.7 fL (80.0-100.0); Macrocytosis Slight; Mean Platelet Volume 8.1; Monocytes # (A) 0.3 k/uL (0-1.0); Monocytes % (A) 4 %; Neutrophils # (A) 7.2 k/uL (1.3-7.7); Neutrophils % (A) 85 %; Platelet Count 249 k/uL (150-450); Poikilocytosis Moderate; RDW 15.9 % (11.5-15.5); WBC 8.5 k/uL (3.8-10.6)
[2022-10-02 09:06] LABS: Albumin 3.5 g/dL (3.5-5.0); Calcium 7.2 mg/dL (8.4-10.2); Potassium 3.1 mmol/L (3.5-5.1); Total Protein 5.8 g/dL (6.3-8.2)
[2022-10-02] MEDS: CALCIUM CARBONATE 500 MG CHEWABLE PO SCH ×3 (09:16→23:49)
[2022-10-02] MEDS: QUEtiapine 25 MG TAB PO SCH ×2 (09:16→15:38)
[2022-10-02] MEDS: CYANOCOBALAMIN 500 MCG TAB PO SCH (09:16)
[2022-10-02] MEDS: SODIUM BICARBONATE TAB 650 MG TAB PO SCH ×3 (09:16→23:49)
[2022-10-02] MEDS: FOLIC ACID 1 MG TAB PO SCH (09:16)
[2022-10-02] MEDS: HEPARIN SODIUM,PORCINE/PF 5,000 UNIT/0.5 ML SYRINGE SQ SCH ×2 (09:16→23:49)
--- NOTE | 2022-10-02 09:51 | P.GSCN ---
History of Present Illness Consult date: 10/02/22 Reason for Consult: Ileus History of present illness: 67-year-old female came to the hospital because of tremors and possible seizures. Patient has a history of for the last 4-6 weeks of diarrhea, poor appetite, abdominal cramps, and intermittent vomiting. Patient was seen last admission by GI and also general surgery. She underwent upper endoscopy but not colonoscopy. Last colonoscopy December of last year however the prep was poor. Apparently the patient has had a large amount of her small bowel and portions of her colon removed in the past. The patient is a very poor historian most of the surgical history is obtained from the written chart. Patient says she is comfortable at this time. We were consulted after CAT scan showed ileus with possible fecal impaction. Patient had a large loose stool this morning. Review of Systems The patient denies any acute changes in vision or hearing, no dysphagia or odynophagia, no chest pain or shortness of breath, no dysuria or hematuria, no headache, no runny nose, no rectal bleeding or melena, no unexplained weight loss Past Medical History Past Medical History: Cancer, COPD, CVA/TIA, Fibromyalgia, Hypertension Additional Past Medical History / Comment(s): TIA, right hand tendons severed and repaired, closed head injury, multiple sclerosis, short bowel syndrome, pancreatic insufficiency, bowel cancer History of Any Multi-Drug Resistant Organisms: C-DIFF Year Discovered:: 2014 MDRO Source:: patient Past Surgical History: Back Surgery Additional Past Surgical History / Comment(s): stomach cancer, right hemicolectomy and small bowel resection. Back surgery by Past Anesthesia/Blood Transfusion Reactions: No Reported Reaction Additional Past Anesthesia/Blood Transfusion Reaction / Comm: States she thinks her father may have had some problems with anesthesia but is not sure what they were. Past Psychological History: Anxiety, Bipolar, Depression, PTSD Smoking Status: Current every day smoker Past Alcohol Use History: None Reported Additional Past Alcohol Use History / Comment(s): Patient is a smoker of 2-3 packs per day since she was 12 years of age and has recently cut back to 1 pack per week Past Drug Use History: None Reported - Past Family History Father Family Medical History: No Reported History Additional Family Medical History / Comment(s): . Mother Family Medical History: No Reported History Additional Family Medical History / Comment(s): . Sister(s) Family Medical History: No Reported History Additional Family Medical History / Comment(s): Patient has sisters all have female problems. She does state there is breast cancer history in her aunt. Son(s) Family Medical History: No Reported History Additional Family Medical History / Comment(s): . Brother(s) Family Medical History: Cancer Additional Family Medical History / Comment(s): esophageal cancer Medications and Allergies Home Medications Medication Instructions Recorded Confirmed Type Folic Acid 1 mg PO DAILY 05/24/17 09/30/22 History QUEtiapine [SEROquel] 50 mg PO HS 06/22/20 09/30/22 History Ergocalciferol (Vitamin D2) 1,250 mcg PO MO 01/31/21 09/30/22 History [Drisdol (50,000 Iu)] DULoxetine HCL [Cymbalta] 60 mg PO AC-BRKFST 05/17/21 09/30/22 History Gabapentin [Neurontin] 300 mg PO TID 05/17/21 09/30/22 History Lipase/Protease/Amylase [Zenpep Dr 1 cap PO PC-TID PRN 05/17/21 09/30/22 History 40,000 Unit Capsule] ALPRAZolam [Xanax] 0.25 mg PO BID PRN 08/24/22 09/30/22 History Acetaminophen with Codeine 1 - 2 tab PO Q8H PRN 08/24/22 09/30/22 History [Tylenol #4 Tablet] DULoxetine HCL [Cymbalta] 30 mg PO PC-LUNCH 08/24/22 09/30/22 History Torsemide [Demadex] 20 mg PO DAILY PRN 08/24/22 09/30/22 History methocarbamoL [Robaxin] 500 mg PO TID PRN 08/24/22 09/30/22 History traZODone HCL 150 mg PO PC-LUNCH 08/24/22 09/30/22 History Calcium Carbonate [Tums] 500 mg PO TID 7 Days #21 tab 08/27/22 09/30/22 Rx Cyanocobalamin [Vitamin B-12] 1,000 mcg PO DAILY #30 tablet 08/27/22 09/30/22 Rx Pantoprazole [Protonix] 40 mg PO AC-BID #60 tab 08/27/22 09/30/22 Rx QUEtiapine FUMARATE [SEROquel XR] 150 mg PO DAILY@1900 09/30/22 09/30/22 History Allergies Allergy/AdvReac Type Severity Reaction Status Date / Time divalproex sodium Allergy Unknown Verified 09/30/22 19:18 [From Depakote] ketorolac [From Toradol] Allergy Unknown Verified 09/30/22 19:18 Penicillins Allergy Anaphylaxis Verified 09/30/22 19:18 shellfish derived [Shellfish] Allergy Rash/Hives Verified 09/30/22 19:18 strawberry Allergy Rash/Hives Verified 09/30/22 19:18 alcohol AdvReac Vomiting Verified 09/30/22 19:18 aspirin AdvReac Nausea & Verified 09/30/22 19:18 Vomiting erythromycin base AdvReac Dyspnea Verified 09/30/22 19:18 Sulfa (Sulfonamide AdvReac Dyspnea & Verified 09/30/22 19:18 Antibiotics) Nausea/Vomiting Dial Soap Allergy Unknown Rash/Hives, Uncoded 09/30/22 19:18 itching Surgical - Exam Vital Signs Temp Pulse Resp BP Pulse Ox 97.9 F 65 18 129/84 100 09/30/22 17:07 09/30/22 17:07 09/30/22 17:07 09/30/22 17:07 09/30/22 17:07 Physical exam: General: Well-developed, well-nourished HEENT: Normocephalic, sclerae nonicteric Abdomen: Mild diffuse tenderness, nondistended Extremities: No edema Neuro: Alert and oriented Results - Labs 10/02/22 08:32 10/02/22 08:32 Abnormal Lab Results - Last 24 Hours (Table) 10/01/22 10/02/22 10/02/22 Range/Units 17:26 08:32 08:32 RBC 2.60 L (3.80-5.40) m/uL Hgb 9.0 L (11.4-16.0) gm/dL Hct 25.6 L (34.0-46.0) % RDW 15.9 H (11.5-15.5) % Lymphocytes # 0.8 L (1.0-4.8) k/uL Potassium 2.8 L 3.1 L (3.5-5.1) mmol/L Chloride 117 H 116 H (98-107) mmol/L Carbon Dioxide 12 L 21 L (22-30) mmol/L BUN 18 H (7-17) mg/dL Creatinine 1.30 H 1.14 H (0.52-1.04) mg/dL Glucose 118 H 125 H (74-99) mg/dL Calcium 7.2 L 7.2 L (8.4-10.2) mg/dL Total Protein 5.8 L (6.3-8.2) g/dL Diabetes panel 10/01/22 10/02/22 Range/Units 17:26 08:32 Sodium 142 145 (137-145) mmol/L Potassium 2.8 L 3.1 L (3.5-5.1) mmol/L Chloride 117 H 116 H (98-107) mmol/L Carbon Dioxide 12 L 21 L (22-30) mmol/L BUN 18 H 16 (7-17) mg/dL Creatinine 1.30 H 1.14 H (0.52-1.04) mg/dL Glucose 118 H 125 H (74-99) mg/dL Calcium 7.2 L 7.2 L (8.4-10.2) mg/dL AST 20 (14-36) U/L ALT 17 (4-34) U/L Alkaline Phosphatase 45 (38-126) U/L Total Protein 5.8 L (6.3-8.2) g/dL Albumin 3.5 (3.5-5.0) g/dL Calcium panel 10/01/22 10/02/22 Range/Units 17:26 08:32 Calcium 7.2 L 7.2 L (8.4-10.2) mg/dL Albumin 3.5 (3.5-5.0) g/dL Pituitary panel 10/01/22 10/02/22 Range/Units 17:26 08:32 Sodium 142 145 (137-145) mmol/L Potassium 2.8 L 3.1 L (3.5-5.1) mmol/L Chloride 117 H 116 H (98-107) mmol/L Carbon Dioxide 12 L 21 L (22-30) mmol/L BUN 18 H 16 (7-17) mg/dL Creatinine 1.30 H 1.14 H (0.52-1.04) mg/dL Glucose 118 H 125 H (74-99) mg/dL Calcium 7.2 L 7.2 L (8.4-10.2) mg/dL Adrenal panel 10/01/22 10/02/22 Range/Units 17:26 08:32 Sodium 142 145 (137-145) mmol/L Potassium 2.8 L 3.1 L (3.5-5.1) mmol/L Chloride 117 H 116 H (98-107) mmol/L Carbon Dioxide 12 L 21 L (22-30) mmol/L BUN 18 H 16 (7-17) mg/dL Creatinine 1.30 H 1.14 H (0.52-1.04) mg/dL Glucose 118 H 125 H (74-99) mg/dL Calcium 7.2 L 7.2 L (8.4-10.2) mg/dL Total Bilirubin 1.0 (0.2-1.3) mg/dL AST 20 (14-36) U/L ALT 17 (4-34) U/L Alkaline Phosphatase 45 (38-126) U/L Total Protein 5.8 L (6.3-8.2) g/dL Albumin 3.5 (3.5-5.0) g/dL Assessment and Plan (1) Abdominal pain Narrative/Plan: 67-year-old female with abdominal pain, diarrhea, and vomiting. CAT scan results noted. C. diff was checked and appears normal. Patient is on a regular diet and had been tolerating it prior to the episode of vomiting this morning. Will keep on regular diet for now. Repeat abdominal x-rays tomorrow. Will follow. Current Visit: No Status: Acute Code(s): R10.9 - UNSPECIFIED ABDOMINAL PAIN SNOMED Code(s): 77187455
[2022-10-02] MEDS: POTASSIUM CHLORIDE ER 20 MEQ TAB.ER PO SCH ×2 (11:19→12:48)
--- NOTE | 2022-10-02 12:27 | P.PN ---
Subjective Progress Note Date: 10/02/22 Principal diagnosis: This is a 67-year-old female seen in consultation because of acute kidney injury and multiple electrolyte abnormalities, including hypomagnesemia hypocalcemia severe acidosis with both gap and non-gap, acute kidney injury deemed to be from excessive GI losses from short bowel syndrome. Presenting complaints were increasing diarrhea numbness tingling and dizziness. She had more stools than usual, could be related to addition of pantoprazole after having been admitted recently with GI bleeding and had 2 superficial lower esophageal erosion as well as mild gastritis. No nausea vomiting no fever chills no GI bleeding. Admission labs showed potassium of 2.6 acute kidney injury creatinine 1.79, severe gap and non-gap acidosis bicarb of 10 and gap of 20, severe hypomagnesemia with magnesium less than 0.4, calcium is 5.4 She is known with colon cancer and had right hemicolectomy. She has short bowel syndrome with multiple stools everyday. Also has pancreatic insufficiency history of lupus multiple sclerosis COPD. This morning she is been throwing up. Denies any abdominal pain. No chest pain or GERD. Does not feel good and her labs are showing improvement in her potassium, magnesium, bicarb and her creatinine is better down from 1.65, to 1 .14 Objective - Vital Signs Vital signs: Vital Signs Temp 98.2 F 10/02/22 11:18 Pulse 66 10/02/22 11:18 Resp 16 10/02/22 11:18 BP 114/71 10/02/22 11:18 Pulse Ox 97 10/02/22 11:18 FiO2 Intake & Output 10/01/22 10/02/22 10/02/22 18:59 06:59 18:59 Intake Total 598 Balance 598 Weight 39.009 kg Intake: Oral 598 Other: Voiding Method Toilet Toilet Toilet # Voids 1 1 1 # Bowel Movements 1 1 On examination she is cachectic small built. HEENT exam no JVP neck is supple no facial asymmetry Lungs clear to auscultation good air entry bilaterally Heart sounds unremarkable Abdomen soft nontender Extremity exam was no edema Neurologically awake alert oriented no asterixis no tremors. No carpopedal spasm denies any perioral paresthesia - Labs CBC & Chem 7: 10/02/22 08:32 10/02/22 08:32 Labs: Abnormal Lab Results - Last 24 Hours (Table) 10/01/22 10/02/22 10/02/22 Range/Units 17:26 08:32 08:32 RBC 2.60 L (3.80-5.40) m/uL Hgb 9.0 L (11.4-16.0) gm/dL Hct 25.6 L (34.0-46.0) % RDW 15.9 H (11.5-15.5) % Lymphocytes # 0.8 L (1.0-4.8) k/uL Potassium 2.8 L 3.1 L (3.5-5.1) mmol/L Chloride 117 H 116 H (98-107) mmol/L Carbon Dioxide 12 L 21 L (22-30) mmol/L BUN 18 H (7-17) mg/dL Creatinine 1.30 H 1.14 H (0.52-1.04) mg/dL Glucose 118 H 125 H (74-99) mg/dL Calcium 7.2 L 7.2 L (8.4-10.2) mg/dL Total Protein 5.8 L (6.3-8.2) g/dL Assessment and Plan Plan: Impression 1. Acute kidney injury secondary to volume the patient from excessive stools. Creatinine improving from 1.65 mg to 1.14 mg 2. Severe hypomagnesemia from GI losses may be made worse by PPI ? Magnesium in 2-2.3 as of yesterday 3. Hypokalemia Scan to GI Losses and and Hypomagnesemia. Potassium 3.1 improved 4. Severe Gap and Non-Gap Acidosis from Acute Kidney Injury and GI Losses, bicarbonate improved to 21 from 9 5. Hypocalcemia to SecondaryHypomagnesemia and Possibly Vitamin D Deficiency from Short Bowel Syndrome. Calcium is 7.2, albumin 3.5. 6. CT of the head and neck shows some upper lobe infiltrate but the chest x-ray was clear:Covid Negative. Recommendation 1. Pending vitamin D 25-hydroxy level, vitamin D 1, 25 dihydroxy level, 2. Continue IV fluids lactated Ringer's at 75 mL an hour 3. Magnesium has been replenished, recheck magnesium 4. Continue calcium carbonate 500 3 times a day 5. Give her IV potassium chloride 40 mEq since his having nausea and vomiting 6. Avoid PPIs possible because of the hypomagnesemia and diarrhea. 7. Continue sodium bicarbonate 6 and 52 tablets 3 times a day, given calcium is being replaced and is coming up so the risk of alkalosis causing reduction His calcium is low Close follow-up of labs
[2022-10-02] MEDS: DULoxetine HCL 30 MG CAPSULE.DR PO SCH (12:48)
[2022-10-02] MEDS: traZODone HCL 50 MG TAB PO SCH (12:48)
[2022-10-02] MEDS ORDERED: POTASSIUM CHLORIDE 20 MEQ in WATER FOR INJECTION 1 100ML.BAG IVPB SCH (15:00)
[2022-10-02] MEDS: ONDANSETRON 4 MG/2 ML VIAL IVP PRN ×2 (15:51→22:20)
[2022-10-02] MEDS: LEVOFLOXACIN 250MG-D5W PMX 250 MG in DEXTROSE/WATER 1 50ML.BAG IVPB SCH (22:20)
[2022-10-02] MEDS: QUEtiapine 50 MG TAB PO SCH (23:49)
--- NOTE | 2022-10-03 01:00 | PN ---
PROGRESS NOTE DATE OF SERVICE: 10/02/2022 SUBJECTIVE: This is a 67-year-old woman, who was admitted with acute on chronic diarrhea with dehydration and electrolyte imbalance, is complaining of abdominal symptoms, but the CT scan of the abdomen and pelvis showed large bowel ileus and changes secondary to fecal impaction and thickened loops of bowel with possibly colitis. No chest pain. No palpitation. OBJECTIVE: VITAL SIGNS: Pulse is 66, blood pressure 140/70, respirations 16. CHEST: Clear to auscultation. CARDIOVASCULAR: S1, S2 muffled. ABDOMEN: Soft, mild diffuse discomfort. No guarding. No rigidity. LABORATORY DATA: Reviewed. ASSESSMENT: 1. Acute on chronic diarrhea, dehydration with acute renal failure secondary to prerenal factors. 2. Possible acute colitis versus large bowel ileus and fecal impaction. 3. Multiple electrolyte imbalances including hypokalemia, hypomagnesemia. 4. Acute metabolic acidosis secondary to diarrhea. 5. History of chronic obstructive pulmonary disease. 6. Multiple medical issues. RECOMMENDATIONS AND DISCUSSION: Recommend to continue current medications, continue symptomatic treatment. Otherwise, at this time, I would also recommend empiric antibiotics. Closely follow with Surgery, multiple consultants. Prognosis guarded. Further recommendations to follow. MMODL / IJN: [id number] /
[2022-10-03] MEDS: metroNIDAZOLE-NS PMX 500 MG in SALINE 1 100ML.BAG IVPB SCH ×3 (05:51→20:44)
[2022-10-03] MEDS: LACTATED RINGERS 1,000 ML IV SCH ×2 (05:52→12:05)
[2022-10-03] MEDS: PANTOPRAZOLE 40 MG TABLET PO SCH ×2 (05:56→17:00)
[2022-10-03] MEDS: DULoxetine HCL 60 MG CAPSULE.DR PO SCH (05:56)
[2022-10-03] MEDS ORDERED: ERGOCALCIFEROL 1,250 MCG (50,000 IU) CAPSULE PO SCH (09:00)
[2022-10-03] MEDS: CALCIUM CARBONATE 500 MG CHEWABLE PO SCH ×3 (09:06→21:47)
[2022-10-03] MEDS: CYANOCOBALAMIN 500 MCG TAB PO SCH (09:20)
[2022-10-03] MEDS: FOLIC ACID 1 MG TAB PO SCH (09:20)
[2022-10-03] MEDS: QUEtiapine 25 MG TAB PO SCH ×2 (09:20→15:18)
[2022-10-03] MEDS: HEPARIN SODIUM,PORCINE/PF 5,000 UNIT/0.5 ML SYRINGE SQ SCH ×2 (09:20→20:44)
[2022-10-03] MEDS: SODIUM BICARBONATE TAB 650 MG TAB PO SCH ×3 (09:20→20:44)
--- NOTE | 2022-10-03 10:06 | XR ---
EXAMINATION TYPE: XR abdomen 2V DATE OF EXAM: 10/03/2022 COMPARISON: 08/24/2022 INDICATION: Follow-up ileus TECHNIQUE: Abdomen is examined in the supine and upright view FINDINGS: Prominent small bowel loops containing air are present. No mass effect is evident. Differential air-f luid levels are in the mid abdomen. No free air is evident. Previous prominent colonic bowel gas appe ars to have resolved. Psoas margins are normal. No organomegaly is present. Postsurgical changes are within the lumbar spine and right hip. IMPRESSION: 1. Prominent small bowel loops containing air with differential air-fluid levels midabdomen. Correlat e for high-grade small bowel obstruction. Previous colonic bowel gas has resolved. A Red level critical message alert has been initiated for Dann Kumar MD via the [employer] Critical Results System on 10/03/2022 10:04 AM. This message alert has been sent to Dann Kumar MD via the preferences provided by the clinician for the receipt of Radiology Critical Findings. ADmantX ID [id number].
--- NOTE | 2022-10-03 12:02 | P.PN ---
Subjective Patient is seen for follow-up for acute kidney injury and multiple electrolyte imbalance including hypomagnesemia and hypocalcemia with severe acidosis. Serum creatinine has improved to 1.1 with potassium of 3.1 today and CO2 at 21. Overall patient is feeling better Voiding on her own Hemodynamically stable. Objective - Vital Signs Vital signs: Vital Signs Temp 98.5 F 10/03/22 09:17 Pulse 77 10/03/22 09:17 Resp 18 10/03/22 09:17 BP 145/89 10/03/22 09:17 Pulse Ox 100 10/03/22 09:17 FiO2 Intake & Output 10/02/22 10/03/22 10/03/22 18:59 06:59 18:59 Other: Voiding Method Toilet Toilet Toilet # Voids 1 1 # Bowel Movements 1 2 - Exam Awake, comfortable not in any acute distress Examination of the heart S1 and S2 Examination of the lungs bilateral breath sounds are heard Abdomen is soft nontender Examination of lower extremity shows no edema MENTAL HEALTH SPECIALIST exam shows no focal deficits - Labs CBC & Chem 7: 10/02/22 08:32 10/02/22 08:32 Labs: Microbiology - Last 24 Hours (Table) 10/01/22 17:15 Blood Culture - Preliminary Blood No Growth after 24 hours Assessment and Plan Assessment: 1. Acute kidney injury secondary to volume deficit from excessive stools. Creatinine improving from 1.65 mg to 1.14 mg 2. Severe hypomagnesemia from GI losses may be made worse by PPI ? Magnesium is now 2.3 3. Hypokalemia Scan to GI Losses and and Hypomagnesemia. Potassium 3.1 improved 4. Severe Gap and Non-Gap Acidosis from Acute Kidney Injury and GI Losses, bicarbonate improved to 21 from 9 5. Hypocalcemia to SecondaryHypomagnesemia and Possibly Vitamin D Deficiency from Short Bowel Syndrome. Calcium is 7.2, albumin 3.5. Plan: Continue oral sodium bicarb and continue Ringer lactate Repeat labs in a.m.
[2022-10-03] MEDS: traZODone HCL 50 MG TAB PO SCH (12:44)
[2022-10-03] MEDS: DULoxetine HCL 30 MG CAPSULE.DR PO SCH (12:44)
[2022-10-03 15:24] LABS: Calcium 6.5 mg/dL (8.4-10.2)
[2022-10-03 15:31] LABS: Potassium 2.3 mmol/L (3.5-5.1)
[2022-10-03] MEDS ORDERED: Potassium Replacement Protocol 1 EACH MISC MISCELLANE PRN (15:37)
[2022-10-03] MEDS ORDERED: POTASSIUM CHLORIDE ER 20 MEQ TAB.ER PO ONE (15:37)
[2022-10-03] MEDS: POTASSIUM CHLORIDE 10 MEQ in WATER FOR INJECTION 1 100ML.BAG IVPB SCH ×6 (16:00→21:47)
--- NOTE | 2022-10-03 16:01 | P.PN ---
Progress Note - Text Progress Note Date: 10/03/22 The patient has had multiple bowel movements yesterday. On exam vital signs are stable. Abdomen is soft. Resolved fecal impaction. Patient can the receive supportive care.
[2022-10-03] MEDS: LEVOFLOXACIN 250MG-D5W PMX 250 MG in DEXTROSE/WATER 1 50ML.BAG IVPB SCH (19:33)
[2022-10-03] MEDS: QUEtiapine 50 MG TAB PO SCH (20:44)
--- NOTE | 2022-10-04 00:23 | P.PN ---
Subjective Progress Note Date: 10/03/22 Patient is a 67-year-old male was admitted to the hospital due to acute on chronic diarrhea with dehydration, ALICIA, and electrolyte imbalance. CT of the dumpling showed large bone ileus and changes secondary to fecal impaction and thickened loops of bowel with possibly colitis. 10/03/2022 Patient is currently lying in the bed. Awake alert and oriented x2-3. No complaints of chest pain or abdominal pain. No complaints of nausea. Patient did have multiple bowel movements yesterday. Currently nothing by mouth. Abdominal x-ray this morning showed prominent small bowel loops containing 80 with differential air-fluid levels mid abdomen. Correlate for high-grade small bowel obstruction. Previous colonic gas has resolved. Laboratory test showed sodium 148 potassium 2.3 and chloride 119, bicarb 18 BUN 13 and creatinine improved to 1.08 CT was negative. Current medications reviewed. PHYSICAL EXAMINATION: Patient is lying in the bed comfortably, no acute distress, awake alert and oriented.. HEENT: Normocephalic. Neck is supple. Pupils reactive. Nostrils clear. Oral cavity is moist. Neck reveals no JVD, carotid bruits, or thyromegaly. CHEST EXAMINATION: Trachea is central. Symmetrical expansion. Lung [place] clear to auscultation and percussion. CARDIAC: Normal S1, S2 with no gallops. No murmurs ABDOMEN: Soft. Bowel sounds sluggish. Nontender. No organomegaly. No abdominal bruits. Extremities: reveal no edema. No clubbing or cyanosis Neurologically awake, alert, oriented x3 with well-coordinated movements. No focal deficits noted Skin: No rash or skin lesions. Psychiatric: Coperative. Nonsuicidal, Musculoskeletal: No joint swelling or deformity. Normal range of motion. Assessment and plan Acute high-grade small bowel obstruction Possible acute colitis and resolved large bowel ileus Acute kidney injury likely prerenal improving Severe hypokalemia and hypomagnesemia secondary to GI losses. Acute on chronic diarrhea improving Severe non-anion gap metabolic acidosis due to acute kidney injury and GI losses. Hypocalcemia likely secondary to hypomagnesemia. Vitamin D within normal limits. GI and DVT prophylaxis Plan: Patient is currently nothing by mouth. Continue with IV hydration changed to Ringer's lactate. Patient is also on antibiotics in the form of Levaquin and Flagyl. Abdominal x-ray today showed high-grade small bowel obstruction. Continue to replace potassium and repeat potassium level. General surgery and nephrology is on board. Follow-up closely. Objective - Vital Signs Vital signs: Vital Signs Temp 98.0 F 10/04/22 00:01 Pulse 77 10/04/22 00:01 Resp 19 10/04/22 00:01 BP 121/57 10/04/22 00:01 Pulse Ox 99 10/04/22 00:01 FiO2 Intake & Output 10/03/22 10/03/22 10/04/22 06:59 18:59 06:59 Weight 39.009 kg Other: Voiding Method Toilet Toilet Toilet # Voids 1 1 1 # Bowel Movements 1 1 - Labs CBC & Chem 7: 10/02/22 08:32 10/03/22 14:08 Labs: Abnormal Lab Results - Last 24 Hours (Table) 10/01/22 10/03/22 Range/Units 17:15 14:08 Sodium 148 H (137-145) mmol/L Potassium 2.3 L* (3.5-5.1) mmol/L Chloride 119 H (98-107) mmol/L Carbon Dioxide 18 L (22-30) mmol/L Creatinine 1.08 H (0.52-1.04) mg/dL Calcium 6.5 L (8.4-10.2) mg/dL Vit D 1,25-Dihydroxy 109 H (20 - 79) pg/mL Microbiology - Last 24 Hours (Table) 10/01/22 17:15 Blood Culture - Preliminary Blood No Growth after 48 hours Assessment and Plan Time with Patient: Greater than 30
[2022-10-04] MEDS: metroNIDAZOLE-NS PMX 500 MG in SALINE 1 100ML.BAG IVPB SCH (04:30)
[2022-10-04] MEDS: LACTATED RINGERS 1,000 ML IV SCH (06:31)
[2022-10-04] MEDS: DULoxetine HCL 60 MG CAPSULE.DR PO SCH (06:31)
[2022-10-04] MEDS: PANTOPRAZOLE 40 MG TABLET PO SCH (06:31)
[2022-10-04] MEDS: QUEtiapine 25 MG TAB PO SCH (09:07)
[2022-10-04] MEDS: CYANOCOBALAMIN 500 MCG TAB PO SCH (09:07)
[2022-10-04] MEDS: CALCIUM CARBONATE 500 MG CHEWABLE PO SCH (09:07)
[2022-10-04] MEDS: FOLIC ACID 1 MG TAB PO SCH (09:08)
[2022-10-04] MEDS: SODIUM BICARBONATE TAB 650 MG TAB PO SCH (09:08)
[2022-10-04 09:20] LABS: Calcium 6.3 mg/dL (8.4-10.2)
[2022-10-04 09:55] VITALS: BP 132/80; PULSE 78; RESP 16; TEMP 98.5
--- NOTE | 2022-10-04 13:57 | P.PN ---
Subjective Progress Note Date: 10/04/22 CHIEF COMPLAINT: Abdominal pain Patient was seen around 9:30 this morning HISTORY OF PRESENT ILLNESS: Patient initially admitted to the hospital with ileus with possible fecal impaction. Patient has been having bowel movements. She reports they've been large and dark in color. She denies any black stools denies any blood in her stools. Denies any nausea or vomiting. Denies any abdominal pain. She reports that she is hungry and is adamant about eating. Yesterday she had a abdominal x-ray that reports to correlate for a high-grade small bowel obstruction. She was made nothing by mouth and intact patient has been nothing by mouth for the last few days. Her electrolyte are still off. Her hemoglobin was 6.2 down from 9. The repeat CBC have been ordered and is pending. Patient was seen and examined this morning. However she did end up leaving AGAINST MEDICAL ADVICE she wanted to eat. PHYSICAL EXAM: VITAL SIGNS: Reviewed. GENERAL: Well-developed in no acute distress. HEENT: No sclera icterus. Extraocular movements grossly intact. Moist buccal mucosa. Head is atraumatic, normocephalic. ABDOMEN: Soft. Nondistended. Nontender. NEUROLOGIC: Alert and oriented. Cranial nerves II through XII grossly intact. ASSESSMENT: 1. Ileus with concerns of possible high-grade small bowel obstruction on abdominal x-ray 2. Electrolyte imbalance PLAN: -Discussed case with Dr. Marks. He recommended a computed tomography scan abdomen and pelvis for further evaluation of high-grade small bowel obstruction. Went to discuss this with patient. She had already left AGAINST MEDICAL ADVICE -Did inform patient that it would be worthwhile to wait for her repeat blood work to follow up on her hemoglobin. She did complain that she was cold. Also, recommended to have her electrolytes replaced. Physician Ocular Care Technologist note has been reviewed by physician. Signing provider agrees with the documented findings, assessment, and plan of care. Objective - Vital Signs Vital signs: Vital Signs Temp 98.5 F 10/04/22 08:00 Pulse 78 10/04/22 08:00 Resp 16 10/04/22 08:00 BP 132/80 10/04/22 08:00 Pulse Ox 99 10/04/22 08:00 FiO2 Intake & Output 10/03/22 10/04/22 10/04/22 18:59 06:59 18:59 Intake Total 600 Balance 600 Weight 39.009 kg Intake: Intake, IV Titration 600 Amount Lactated Ringers 1,000 ml 600 @ 75 mls/hr IV .[id number] [facility] Rx#:[id number] Other: Voiding Method Toilet Toilet Toilet # Voids 1 1 # Bowel Movements 1 1 - Labs CBC & Chem 7: 10/02/22 08:32 10/04/22 08:12 Labs: Abnormal Lab Results - Last 24 Hours (Table) 10/01/22 10/03/22 10/04/22 Range/Units 17:15 14:08 08:12 Sodium 148 H 146 H (137-145) mmol/L Potassium 2.3 L* 3.0 L (3.5-5.1) mmol/L Chloride 119 H 120 H (98-107) mmol/L Carbon Dioxide 18 L 17 L (22-30) mmol/L Creatinine 1.08 H 1.07 H (0.52-1.04) mg/dL Calcium 6.5 L 6.3 L* (8.4-10.2) mg/dL Vit D 1,25-Dihydroxy 109 H (20 - 79) pg/mL Microbiology - Last 24 Hours (Table) 10/01/22 17:15 Blood Culture - Preliminary Blood No Growth after 48 hours
== END 2022-10-04 10:13 | disposition left against medical advice (07) | DRG 389 ==
LOC: EC 17:05 → OBSVTOIN 19:12 → 3SCARD 19:12
PROVIDERS: ADMIT Internal Medicine; ATTEND Internal Medicine
DX: K56.7 Ileus, unspecified (principal); E87.20 Acidosis, unspecified; K91.2 Postsurgical malabsorption, not elsewhere classified; N17.9 Acute kidney failure, unspecified; R25.1 Tremor, unspecified; M79.7 Fibromyalgia; R29.6 Repeated falls; Z20.822 Contact with and (suspected) exposure to COVID-19; I10 Essential (primary) hypertension; K86.89 Other specified diseases of pancreas; K52.9 Noninfective gastroenteritis and colitis, unspecified; E83.42 Hypomagnesemia; K56.41 Fecal impaction; Z88.8 Allergy status to other drugs, medicaments and biological substances; E83.51 Hypocalcemia; E86.0 Dehydration; E87.6 Hypokalemia; F43.10 Post-traumatic stress disorder, unspecified; G35 Multiple sclerosis; Z71.3 Dietary counseling and surveillance; Z88.6 Allergy status to analgesic agent; Z88.1 Allergy status to other antibiotic agents; Z88.0 Allergy status to penicillin; Z88.2 Allergy status to sulfonamides; Z79.899 Other long term (current) drug therapy; Z80.0 Family history of malignant neoplasm of digestive organs; Z85.028 Personal history of other malignant neoplasm of stomach; Z86.73 Personal history of transient ischemic attack (TIA), and cerebral infarction without residual deficits; Z91.81 History of falling; Z90.49 Acquired absence of other specified parts of digestive tract
CPT/HCPCS: 36415; 70450; 71046; 72125; 74019; 74176; 80048; 80053; 81001; 82306; 82533; 82652; 83605; 83735; 84100; 84443; 84484; 85025; 85610; 85730; 87040; 87324; 87635; 93005; 96365; 96366; 96367; 96375; 99285

== ENCOUNTER → 2022-10-19 | Outpatient (CLI) | payer MEDICARE, OTHER ==
[2022-10-19 15:25] LABS: HCT 24.8 % (37.2-46.3); HGB 7.5 g/dL (12.0-15.0); MCH 34.2 pg (27.0-32.0); MCHC 30.2 g/dL (32.0-37.0); MCV 113.2 fL (80.0-97.0); Mean Platelet Volume 9.6 fL (9.5-12.2); NRBC Per 100 WBC 0 /100 WBCS (0.0-0.0); Platelet Count 282 X 10*3/uL (140-440); RBC 2.19 X 10*6/uL (4.10-5.20); RDW 16.1 % (11.5-14.5); WBC 9.44 X 10*3/uL (4.50-10.00)
[2022-10-19 16:43] LABS: Basophils # (A) 0.02 X 10*3/uL (0.00-0.10); Basophils % (A) 0.2 %; Crenated RBC 2+; Eosinophils # (A) 0.03 X 10*3/uL (0.04-0.35); Eosinophils % (A) 0.3 %; Immature Grans, Automated 0.7 %; Lymphocytes # (A) 1.04 X 10*3/uL (0.90-5.00); Monocytes % (A) 4.2 %; Neutrophils # (A) 7.88 X 10*3/uL (1.80-7.70); Neutrophils % (A) 83.6 %
[2022-10-19 17:19] LABS: ALT 9 U/L (8-44); AST 10 U/L (13-35); Albumin 4.3 g/dL (3.8-4.9); Albumin/Globulin Ratio 2.15 (1.60-3.17); Alkaline Phosphatase 47 U/L (41-126); BUN/Creat Ratio 12.47 Ratio (12.00-20.00); Blood Urea Nitrogen 21.2 mg/dL (9.0-27.0); Calcium 7.8 mg/dL (8.7-10.3); Carbon Dioxide 12.2 mmol/L (20.0-27.5); Chloride 115 mmol/L (96-109); Glucose 73 mg/dL (70-110); Magnesium 1.2 mg/dL (1.5-2.4); Non-African American GFR(CKD) 30.2 (60.0-200.0); Potassium 5.1 mmol/L (3.5-5.5); Sodium 142 mmol/L (135-145); Total Bilirubin <0.15 mg/dL (0.30-1.20); Total Protein 6.3 g/dL (6.2-8.2)
== END | disposition home or self-care (01) ==
LOC: LABWHC1 09:17
PROVIDERS: ATTEND Internal Medicine
DX: I10 Essential (primary) hypertension (principal)
CPT/HCPCS: 36415; 80053; 83735; 85025

== ENCOUNTER → 2022-11-26 | Outpatient (CLI) | payer MEDICARE, OTHER ==
--- NOTE | 2022-11-26 10:19 | MR ---
EXAMINATION TYPE: MR cervical spine wo con DATE OF EXAM: 11/26/2022 10:13 AM COMPARISON: NONE HISTORY: Neck pain, RUE numbness, headaches. Hx injury. Multiplanar MultiSpin echo imaging of the cervical spine was performed. Comparison: none C2-C3: No evidence for degenerative disc disease. No disc bulge/herniation or protrusion. No Canal stenosis. Foramina are patent bilaterally. C3-C4: No evidence for degenerative disc disease. No disc bulge/herniation or protrusion. No Canal stenosis. Foramina are patent bilaterally. C4-C5: No evidence for degenerative disc disease. No disc bulge/herniation or protrusion. No Canal stenosis. Foramina are patent bilaterally. C5-C6: Mild decreased signal and loss of height compatible degenerative disc disease. Posterior disc bulge mildly effaces the ventral thecal sac. There is no evidence for disc herniation or central sten osis. Foramina appear to be patent bilaterally. C6-C7: Mild decreased signal and loss of height compatible degenerative disc disease. Posterior disc bulge mildly effaces the ventral thecal sac. There is no evidence for disc herniation or central sten osis. Foramina appear to be patent bilaterally. C7-T1: No evidence for degenerative disc disease. No disc bulge/herniation or protrusion. No Canal stenosis. Foramina are patent bilaterally. Cervical segments are intact. There is normal alignment. Cervical spinal cord is of normal signal. Craniovertebral junction relationships are within normal limits. IMPRESSION: 1. Mild multilevel degenerative disc disease at C5-6 and C6-7 with disc bulging noted. No evidence fo r central stenosis or foraminal encroachment at this time.
== END | disposition home or self-care (01) ==
LOC: RADMRIMAIN 09:25
PROVIDERS: ATTEND Internal Medicine
DX: M50.322 Other cervical disc degeneration at C5-C6 level (principal); M50.222 Other cervical disc displacement at C5-C6 level; M47.12 Other spondylosis with myelopathy, cervical region
CPT/HCPCS: 72141

== ENCOUNTER 2023-03-31 10:48 | Emergency (ER) | payer MEDICARE, OTHER ==
[2023-03-31] MEDS ORDERED: ONDANSETRON 4 MG/2 ML VIAL IVP STA (10:55)
[2023-03-31] MEDS ORDERED: SODIUM CHLORIDE 0.9% 1,000 ML IV STA (10:55)
[2023-03-31 10:58] VITALS: TEMP 98.3
[2023-03-31] MEDS ORDERED: PANTOPRAZOLE 40 MG/10 ML VIAL IVP STA (11:19)
[2023-03-31] MEDS ORDERED: MORPHINE SULFATE 2 MG/ML SYRINGE IVP STA ×2 (11:24→12:39)
--- NOTE | 2023-03-31 11:26 | ED ---
Nausea/Vomiting/Diarrhea HPI - General Chief complaint: Nausea/Vomiting/Diarrhea Stated complaint: Vomiting Time Seen by Provider: 03/31/23 10:54 Source: patient, RN notes reviewed Mode of arrival: ambulatory Limitations: no limitations - History of Present Illness Initial comments: This is a 67-year-old female who presents to the emergency department for nausea and vomiting. States that she is sick all of the time, however over the last 2 weeks she has been unable to keep much of anything down. Denies any substantial changes in bowel/bladder habits. Not currently taking any medication to manage her nausea. She is unable to see her primary care provider for about a week, and states that she cannot wait that long. Reports mild abdominal discomfort from all of the vomiting. Denies any fevers, chills, sore throat, chest pain, palpitations, diarrhea, back pain, or headaches. MD complaint: nausea, vomiting - Related Data Home Medications Medication Instructions Recorded Confirmed Folic Acid 1 mg PO DAILY 05/24/17 03/31/23 DULoxetine HCL [Cymbalta] 60 mg PO [id number] 05/17/21 03/31/23 Gabapentin [Neurontin] 300 mg PO TID 05/17/21 03/31/23 Lipase/Protease/Amylase [Zenpep Dr 1 cap PO PC-TID PRN 05/17/21 03/31/23 40,000 Unit Capsule] ALPRAZolam [Xanax] 0.25 mg PO BID 08/24/22 03/31/23 Acetaminophen with Codeine 1 - 2 tab PO Q8H PRN 08/24/22 03/31/23 [Tylenol #4 Tablet] DULoxetine HCL [Cymbalta] 30 mg PO PC-LUNCH 08/24/22 03/31/23 methocarbamoL [Robaxin] 500 mg PO TID PRN 08/24/22 03/31/23 traZODone HCL 150 mg PO PC-LUNCH 08/24/22 03/31/23 Calcium Carbonate [Tums] 500 mg PO TID-W/MEALS 03/31/23 03/31/23 Famotidine 20 mg PO BID 03/31/23 03/31/23 Loperamide [Imodium] 2 mg PO TID PRN 03/31/23 03/31/23 Magnesium Oxide [Mag-Ox] 400 mg PO BID 03/31/23 03/31/23 QUEtiapine FUMARATE [SEROquel XR] 300 mg PO HS 03/31/23 03/31/23 Sodium Bicarbonate Tab 650 mg PO BID 03/31/23 03/31/23 Previous Rx's Medication Instructions Recorded Cyanocobalamin [Vitamin B-12] 1,000 mcg PO DAILY #30 tablet 08/27/22 Ondansetron Odt [Zofran Odt] 4 mg PO Q8HR PRN #20 tab 03/31/23 Pantoprazole [Protonix] 40 mg PO DAILY 14 Days #14 tab 03/31/23 Allergies Allergy/AdvReac Type Severity Reaction Status Date / Time divalproex sodium Allergy Unknown Verified 03/31/23 13:57 [From Depakote] ketorolac [From Toradol] Allergy Unknown Verified 03/31/23 13:57 Penicillins Allergy Anaphylaxis Verified 03/31/23 13:57 shellfish derived [Shellfish] Allergy Rash/Hives Verified 03/31/23 13:57 strawberry Allergy Rash/Hives Verified 03/31/23 13:57 alcohol AdvReac Vomiting Verified 03/31/23 13:57 aspirin AdvReac Nausea & Verified 03/31/23 13:57 Vomiting erythromycin base AdvReac Dyspnea Verified 03/31/23 13:57 Sulfa (Sulfonamide AdvReac Dyspnea & Verified 03/31/23 13:57 Antibiotics) Nausea/Vomiting Dial Soap Allergy Unknown Rash/Hives, Uncoded 03/31/23 10:53 itching Review of Systems ROS Statement: Those systems with pertinent positive or pertinent negative responses have been documented in the HPI. ROS Other: All systems not noted in ROS Statement are negative. Past Medical History Past Medical History: Cancer, COPD, CVA/TIA, Fibromyalgia, Hypertension Additional Past Medical History / Comment(s): TIA, right hand tendons severed and repaired, closed head injury, multiple sclerosis, short bowel syndrome, pancreatic insufficiency, bowel cancer History of Any Multi-Drug Resistant Organisms: C-DIFF Date of last positivie culture/infection: 2014 MDRO Source:: patient Past Surgical History: Back Surgery Additional Past Surgical History / Comment(s): stomach cancer, right hemicolectomy and small bowel resection. Back surgery by Past Anesthesia/Blood Transfusion Reactions: No Reported Reaction Additional Past Anesthesia/Blood Transfusion Reaction / Comment(s): States she thinks her father may have had some problems with anesthesia but is not sure what they were. Past Psychological History: Anxiety, Bipolar, Depression, PTSD Smoking Status: Current every day smoker Past Alcohol Use History: None Reported Past Drug Use History: None Reported - Past Family History Father Family Medical History: No Reported History Additional Family Medical History / Comment(s): . Mother Family Medical History: No Reported History Additional Family Medical History / Comment(s): . Sister(s) Family Medical History: No Reported History Additional Family Medical History / Comment(s): Patient has sisters all have female problems. She does state there is breast cancer history in her aunt. Son(s) Family Medical History: No Reported History Additional Family Medical History / Comment(s): . Brother(s) Family Medical History: Cancer Additional Family Medical History / Comment(s): esophageal cancer General Exam Limitations: no limitations General appearance: alert, in no apparent distress Head exam: Present: atraumatic, normocephalic, normal inspection Respiratory exam: Present: wheezes, decreased breath sounds, prolonged expiratory. Absent: respiratory distress, rales, rhonchi, stridor Cardiovascular Exam: Present: regular rate, normal rhythm, normal heart sounds. Absent: systolic murmur, diastolic murmur, rubs, gallop, clicks GI/Abdominal exam: Present: soft, tenderness (generalized), normal bowel sounds. Absent: distended Neurological exam: Present: alert, oriented X3, CN II-XII intact Psychiatric exam: Present: normal affect, normal mood Skin exam: Present: warm, dry, intact, normal color. Absent: rash Course Vital Signs 03/31/23 03/31/23 03/31/23 10:50 12:37 14:07 Temperature 98.3 F Pulse Rate 99 98 98 Respiratory 22 18 18 Rate Blood Pressure 113/72 124/75 164/84 O2 Sat by Pulse 98 96 96 Oximetry Medical Decision Making - Medical Decision Making This is a 67-year-old female who presents to the emergency department for nausea and vomiting. Was pt. sent in by a medical professional or institution? @ -No Did you speak to anyone other than the patient for history? @ -No Did you review nursing and triage notes? @ -I disagree with the part about diarrhea. Patient denies any substantial changes in bowel or bladder habits. Were old charts reviewed? @ -No Differential Diagnosis? @ -Differential Nausea and Vomiting: Gastroenteritis, cholecystitis, appendicitis, pancreatitis, migraine, benign positional vertigo, food borne illness, pyelonephritis, irritable bowel syndrome, influenza, Covid, GERD, incarcerated hernia, intestinal obstruction, this is not meant to be an all-inclusive list. EKG interpreted by me (3pts min.)? @ -Not obtained X-rays interpreted by me (1pt min.)? @ -Chest x-ray obtained, my interpretation identifies no localized consolidations or infiltrates. KUB x-ray obtained. My interpretation identifies no evidence of bowel wall thickening or free air. CT interpreted by me (1pt min.)? @ -Not obtained U/S interpreted by me (1pt. min.)? @ -Not obtained What testing was considered but not performed? (CT, X-rays, U/S, labs)? Why? @ -None What meds were considered but not given? Why? @ -None Did you discuss the management of the patient with other professionals? @ -No Did you reconcile home meds? @ -No Was smoking cessation discussed for >3mins.? @ -No Was critical care preformed (if so, how long)? @ -No Were there social determinants of health that impacted care today? How? (Homelessness, low income, unemployed, alcoholism, drug addiction, transportation, low edu. Level, literacy, decrease access to med. care, long-term, rehab)? @ -No Was there de-escalation of care discussed even if they declined? (Discuss DNR or withdrawal of care, Hospice)? @ -No What co-morbidities impacted this encounter? (DM, HTN, Smoking, COPD, CAD, Cancer, CVA, Hep., AIDS, mental health diagnosis, sleep apnea, morbid obesity)? @ -Cancer, COPD, HTN Was patient admitted / discharged? @ -Discharged. Lab work obtained revealing an ALICIA, with a creatinine of 2.23 and GFR of 22, suggestive of dehydration. Low hemoglobin of 10.2 is improved when compared with prior values. Patient treated with IV fluids, zofran, and protonix, with significant relief in symptoms. Patient overall felt stable for discharge home. She was given prescriptions for Zofran and Protonix with dosing instructions reviewed. She is also advised to slowly advance her diet as tolerated and remain well-hydrated. She'll otherwise follow up with her PCP next week as scheduled, sooner if needed. Patient discharged home in stable condition. Undiagnosed new problem with uncertain prognosis? @ -None Drug Therapy requiring intensive monitoring for toxicity (Heparin, Nitro, Insulin, Cardizem)? @ -None Were any procedures done? @ -None Diagnosis/symptom? @ -Nausea and vomiting, ALICIA, dehydration Acute, or Chronic, or Acute on Chronic? @ -Acute Uncomplicated (without systemic symptoms) or Complicated (systemic symptoms)? @ -Uncomplicated Side effects of treatment? @ -None Exacerbation, Progression, or Severe Exacerbation] @ -Not applicable Poses a threat to life or bodily function? @ -No Return precautions reviewed in depth, the patient is instructed to return to the emergency department with any new, worsening, or concerning symptoms. Patient verbalized understanding. This case was discussed in detail with the attending ED physician, Dr. Quinteros. Presentation, findings, and treatment plan discussed in detail as well. - Lab Data Result diagrams: 03/31/23 11:06 03/31/23 11:06 Lab Results 03/31/23 03/31/23 03/31/23 Range/Units 11:06 11:06 11:06 WBC 7.2 (3.8-10.6) k/uL RBC 3.03 L (3.80-5.40) m/uL Hgb 10.2 L (11.4-16.0) gm/dL Hct 31.7 L (34.0-46.0) % MCV 104.8 H (80.0-100.0) fL MCH 33.8 (25.0-35.0) pg MCHC 32.3 (31.0-37.0) g/dL RDW 13.7 (11.5-15.5) % Plt Count 391 (150-450) k/uL MPV 7.6 Neutrophils % 77 % Lymphocytes % 15 % Monocytes % 5 % Eosinophils % 1 % Basophils % 0 % Neutrophils # 5.5 (1.3-7.7) k/uL Lymphocytes # 1.1 (1.0-4.8) k/uL Monocytes # 0.4 (0-1.0) k/uL Eosinophils # 0.1 (0-0.7) k/uL Basophils # 0.0 (0-0.2) k/uL Macrocytosis Slight Sodium 140 (137-145) mmol/L Potassium 3.5 (3.5-5.1) mmol/L Chloride 99 (98-107) mmol/L Carbon Dioxide 19 L (22-30) mmol/L Anion Gap 22 mmol/L BUN 40 H (7-17) mg/dL Creatinine 2.23 H (0.52-1.04) mg/dL Est GFR (CKD-EPI)AfAm 25 (>60 ml/min/1.73 sqM) Est GFR (CKD-EPI)NonAf 22 (>60 ml/min/1.73 sqM) Glucose 135 H (74-99) mg/dL Calcium 11.1 H (8.4-10.2) mg/dL Total Bilirubin 0.7 (0.2-1.3) mg/dL AST 20 (14-36) U/L ALT 13 (4-34) U/L Alkaline Phosphatase 67 (38-126) U/L Total Protein 8.0 (6.3-8.2) g/dL Albumin 4.9 (3.5-5.0) g/dL Amylase 98 (30-110) U/L Lipase 296 (23-300) U/L Urine Color Yellow Urine Appearance Clear (Clear) Urine pH 5.5 (5.0-8.0) Ur Specific [place] 1.021 (1.001-1.035) Urine Protein 1+ H (Negative) Urine Glucose (UA) Negative (Negative) Urine Ketones Negative (Negative) Urine Blood Negative (Negative) Urine Nitrite Negative (Negative) Urine Bilirubin Negative (Negative) Urine Urobilinogen <2.0 (<2.0) mg/dL Ur Leukocyte Esterase Negative (Negative) Urine RBC 11 H (0-5) /hpf Urine WBC 4 (0-5) /hpf Ur Squamous Epith Cells 2 (0-4) /hpf Urine Bacteria Occasional H (None) /hpf Hyaline Casts 7 H (0-2) /lpf Urine Mucus Rare H (None) /hpf Influenza Type A (PCR) (Not Detectd) Influenza Type B (PCR) (Not Detectd) RSV (PCR) (Not Detectd) SARS-CoV-2 (PCR) (Not Detectd) Blood Type Blood Type Recheck Bld Type Recheck Status Antibody Screen Spec Expiration Date 03/31/23 03/31/23 Range/Units 11:06 11:15 WBC (3.8-10.6) k/uL RBC (3.80-5.40) m/uL Hgb (11.4-16.0) gm/dL Hct (34.0-46.0) % MCV (80.0-100.0) fL MCH (25.0-35.0) pg MCHC (31.0-37.0) g/dL RDW (11.5-15.5) % Plt Count (150-450) k/uL MPV Neutrophils % % Lymphocytes % % Monocytes % % Eosinophils % % Basophils % % Neutrophils # (1.3-7.7) k/uL Lymphocytes # (1.0-4.8) k/uL Monocytes # (0-1.0) k/uL Eosinophils # (0-0.7) k/uL Basophils # (0-0.2) k/uL Macrocytosis Sodium (137-145) mmol/L Potassium (3.5-5.1) mmol/L Chloride (98-107) mmol/L Carbon Dioxide (22-30) mmol/L Anion Gap mmol/L BUN (7-17) mg/dL Creatinine (0.52-1.04) mg/dL Est GFR (CKD-EPI)AfAm (>60 ml/min/1.73 sqM) Est GFR (CKD-EPI)NonAf (>60 ml/min/1.73 sqM) Glucose (74-99) mg/dL Calcium (8.4-10.2) mg/dL Total Bilirubin (0.2-1.3) mg/dL AST (14-36) U/L ALT (4-34) U/L Alkaline Phosphatase (38-126) U/L Total Protein (6.3-8.2) g/dL Albumin (3.5-5.0) g/dL Amylase (30-110) U/L Lipase (23-300) U/L Urine Color Urine Appearance (Clear) Urine pH (5.0-8.0) Ur Specific [place] (1.001-1.035) Urine Protein (Negative) Urine Glucose (UA) (Negative) Urine Ketones (Negative) Urine Blood (Negative) Urine Nitrite (Negative) Urine Bilirubin (Negative) Urine Urobilinogen (<2.0) mg/dL Ur Leukocyte Esterase (Negative) Urine RBC (0-5) /hpf Urine WBC (0-5) /hpf Ur Squamous Epith Cells (0-4) /hpf Urine Bacteria (None) /hpf Hyaline Casts (0-2) /lpf Urine Mucus (None) /hpf Influenza Type A (PCR) Not Detected (Not Detectd) Influenza Type B (PCR) Not Detected (Not Detectd) RSV (PCR) Not Detected (Not Detectd) SARS-CoV-2 (PCR) Not Detected (Not Detectd) Blood Type O Positive Blood Type Recheck O Pos Bld Type Recheck Status No Antibody Screen NEGATIVE Spec Expiration Date 04/03/20232314 - Radiology Data Radiology results: report reviewed, image reviewed Disposition Clinical Impression: Nausea and vomiting, Dehydration, ALICIA (acute kidney injury) Disposition: HOME SELF-CARE Instructions (If sedation given, give patient instructions): Acute Nausea and Vomiting (ED) Additional Instructions: Return to the emergency department with any new, worsening, or concerning symptoms. You can take the Zofran up to every 8 hours as needed for nausea and vomiting. Take the pantoprazole daily as well. Try to take this 30-60 minutes before eating or taking any other medication. You can take your first dose tomorrow, as you received a dose through the IV in the emergency department today. Slowly advance your diet as tolerated and remain well-hydrated. Follow up with your primary care provider in 1-2 days. Prescriptions: Pantoprazole [Protonix] 40 mg PO DAILY 14 Days #14 tab Ondansetron Odt [Zofran Odt] 4 mg PO Q8HR PRN #20 tab PRN Reason: Nausea And Vomiting Is patient prescribed a controlled substance at d/c from ED?: No Referrals: Meseret Haq MD [Primary Care Provider] - 1-2 days
[2023-03-31 11:32] LABS: Basophils % (A) 0 %; Eosinophils # (A) 0.1 k/uL (0-0.7); Eosinophils % (A) 1 %; HCT 31.7 % (34.0-46.0); HGB 10.2 gm/dL (11.4-16.0); Lymphocytes # (A) 1.1 k/uL (1.0-4.8); Lymphocytes % (A) 15 %; MCH 33.8 pg (25.0-35.0); MCHC 32.3 g/dL (31.0-37.0); MCV 104.8 fL (80.0-100.0); Macrocytosis Slight; Mean Platelet Volume 7.6; Monocytes # (A) 0.4 k/uL (0-1.0); Monocytes % (A) 5 %; Neutrophils # (A) 5.5 k/uL (1.3-7.7); Neutrophils % (A) 77 %; Platelet Count 391 k/uL (150-450); RBC 3.03 m/uL (3.80-5.40); RDW 13.7 % (11.5-15.5); WBC 7.2 k/uL (3.8-10.6)
[2023-03-31 11:44] LABS: ALT 13 U/L (4-34); AST 20 U/L (14-36); African American GFR (CKD) 25 (>60 ml/min/1.73 sqM); Albumin 4.9 g/dL (3.5-5.0); Alkaline Phosphatase 67 U/L (38-126); Amylase 98 U/L (30-110); Anion Gap 22 mmol/L; Blood Urea Nitrogen 40 mg/dL (7-17); Calcium 11.1 mg/dL (8.4-10.2); Carbon Dioxide 19 mmol/L (22-30); Chloride 99 mmol/L (98-107); Glucose 135 mg/dL (74-99); Lipase 296 U/L (23-300); Non-African American GFR(CKD) 22 (>60 ml/min/1.73 sqM); Potassium 3.5 mmol/L (3.5-5.1); Sodium 140 mmol/L (137-145); Total Bilirubin 0.7 mg/dL (0.2-1.3)
--- NOTE | 2023-03-31 12:09 | XR ---
EXAMINATION TYPE: XR chest 2V DATE OF EXAM: 03/31/2023 COMPARISON: 09/30/2022 HISTORY: Shortness of breath TECHNIQUE: Frontal and lateral views of the chest are obtained. FINDINGS: Scattered senescent parenchymal changes noted. Hyperinflation compatible with COPD. No evidence for infiltrate. No evidence for atelectasis. Heart size is stable. Mediastinal structures are stable and grossly unremarkable. No evidence for hilar prominence. Degenerative changes dorsal spine. IMPRESSION: 1. No evidence for acute pulmonary disease.
--- NOTE | 2023-03-31 12:28 | XR ---
EXAMINATION TYPE: XR KUB DATE OF EXAM: 03/31/2023 COMPARISON: NONE HISTORY: Pain TECHNIQUE: Single supine KUB image of the abdomen is obtained FINDINGS: Small bowel demonstrates no evidence for dilatation or air fluid levels. Gas and fecal material is seen in non-distended colon. No convincing evidence for pneumoperitoneum. No unusual calcifications. Moderate fecal stasis noted. The lung bases are clear. The osseous structures are intact. Postoperative changes lower lumbar spine. Changes of lumbar verteb roplasty. IMPRESSION: 1. Overall nonobstructive bowel gas pattern.
[2023-03-31] MEDS: HYDROmorphone 1 MG/ML 1 ML SYRINGE IVP STA ×2 (12:37→12:39)
[2023-03-31 12:39] VITALS: PULSE 98; RESP 18
[2023-03-31 12:55] LABS: Appearance,Urine Clear (Clear); Bacteria,Urine Occasional /hpf; Bilirubin,Urine Negative (Negative); Blood,Urine Negative (Negative); Color,Urine Yellow; Glucose,Urine (UA) Negative (Negative); Hyaline Casts,Urine 7 /lpf (0-2); Ketones,Urine Negative (Negative); Leukocyte Esterase,Urine Negative (Negative); Mucus,Urine Rare /hpf; Nitrite,Urine Negative (Negative); PH, Urine 5.5 (5.0-8.0); Protein,Urine 1+ (Negative); RBC,Urine 11 /hpf (0-5); Specific Gravity,Urine 1.021 (1.001-1.035); Squamous Epithelial Cell,Urine 2 /hpf (0-4); Urobilinogen,Urine <2.0 mg/dL (<2.0); WBC,Urine 4 /hpf (0-5)
[2023-03-31] MEDS ORDERED: ONDANSETRON 4 MG ODT STARTER PACK 2 TAB BTL PO STA (13:38)
[2023-03-31 14:19] VITALS: BP 164/84
== END 2023-03-31 14:12 | disposition home or self-care (01) ==
LOC: EC 10:48
DX: R11.2 Nausea with vomiting, unspecified (principal); E86.0 Dehydration; N17.9 Acute kidney failure, unspecified; J44.9 Chronic obstructive pulmonary disease, unspecified; I10 Essential (primary) hypertension; F41.9 Anxiety disorder, unspecified; F31.9 Bipolar disorder, unspecified; F17.200 Nicotine dependence, unspecified, uncomplicated; Z79.899 Other long term (current) drug therapy; Z86.73 Personal history of transient ischemic attack (TIA), and cerebral infarction without residual deficits; Z88.6 Allergy status to analgesic agent; Z88.2 Allergy status to sulfonamides; Z91.018 Allergy to other foods; Z91.013 Allergy to seafood; Z88.8 Allergy status to other drugs, medicaments and biological substances; Z20.822 Contact with and (suspected) exposure to COVID-19; Z88.0 Allergy status to penicillin; Z88.1 Allergy status to other antibiotic agents; Z90.49 Acquired absence of other specified parts of digestive tract
CPT/HCPCS: 36415; 86900; 86901; 80053; 82150; 83690; 85025; 86850; 81001; 87636; 71046; 74018; 99284; 96374; 96375 ×2; 96376; 96361; J2405; J2270; S0119; C9113

== ENCOUNTER 2023-04-04 16:06 | Emergency (ER) | payer MEDICARE, OTHER ==
--- NOTE | 2023-04-04 16:39 | ED ---
General Adult HPI - General Source: patient, RN notes reviewed <Sharla Goff - Last Filed: 04/04/23 16:38> <Josh Quinteros - Last Filed: 04/04/23 19:53> - General Stated complaint: nausea, vomitting, dizziness Time Seen by Provider: 04/04/23 16:38 - History of Present Illness Initial comments: 67-year-old female presents to the emergency department with chief complaint of nausea and vomiting, generalized weakness. She states that his been going on for a month. She was evaluated in the emergency department 4 days ago for this same issue. She states she continues to have the symptoms without improvement. She reports pain in her lower back. (Sharla Goff) This is a 67-year-old female who presents emergency Department stating she's had intermittent nausea and vomiting for at least a month. Patient states she'll go a week without vomiting and then she'll have a day or maybe 2 with some vomiting. Patient denies any diarrhea. Patient denies any fever chills. Patient denies any abdominal pain. Patient states she vomited about 3 hours ago but hasn't vomited since. Patient states she's tried to tell her primary medical care doctor but he is not listening. Patient currently is only mildly nauseated patient denies any abdominal pain patient denies any recent fever chills (Josh Quinteros) - Related Data Home Medications Medication Instructions Recorded Confirmed Folic Acid 1 mg PO DAILY 05/24/17 03/31/23 DULoxetine HCL [Cymbalta] 60 mg PO AC-BRKFST 05/17/21 03/31/23 Gabapentin [Neurontin] 300 mg PO TID 05/17/21 03/31/23 Lipase/Protease/Amylase [Zenpep Dr 1 cap PO PC-TID PRN 05/17/21 03/31/23 40,000 Unit Capsule] ALPRAZolam [Xanax] 0.25 mg PO BID 08/24/22 03/31/23 Acetaminophen with Codeine 1 - 2 tab PO Q8H PRN 08/24/22 03/31/23 [Tylenol #4 Tablet] DULoxetine HCL [Cymbalta] 30 mg PO PC-LUNCH 08/24/22 03/31/23 methocarbamoL [Robaxin] 500 mg PO TID PRN 08/24/22 03/31/23 traZODone HCL 150 mg PO PC-LUNCH 08/24/22 03/31/23 Calcium Carbonate [Tums] 500 mg PO TID-W/MEALS 03/31/23 03/31/23 Famotidine 20 mg PO BID 03/31/23 03/31/23 Loperamide [Imodium] 2 mg PO TID PRN 03/31/23 03/31/23 Magnesium Oxide [Mag-Ox] 400 mg PO BID 03/31/23 03/31/23 QUEtiapine FUMARATE [SEROquel XR] 300 mg PO HS 03/31/23 03/31/23 Sodium Bicarbonate Tab 650 mg PO BID 03/31/23 03/31/23 Previous Rx's Medication Instructions Recorded Cyanocobalamin [Vitamin B-12] 1,000 mcg PO DAILY #30 tablet 08/27/22 Ondansetron Odt [Zofran Odt] 4 mg PO Q8HR PRN #20 tab 03/31/23 Pantoprazole [Protonix] 40 mg PO DAILY 14 Days #14 tab 03/31/23 Allergies Allergy/AdvReac Type Severity Reaction Status Date / Time divalproex sodium Allergy Unknown Verified 04/04/23 16:38 [From Depakote] ketorolac [From Toradol] Allergy Unknown Verified 04/04/23 16:38 Penicillins Allergy Anaphylaxis Verified 04/04/23 16:38 shellfish derived [Shellfish] Allergy Rash/Hives Verified 04/04/23 16:38 strawberry Allergy Rash/Hives Verified 04/04/23 16:38 alcohol AdvReac Vomiting Verified 04/04/23 16:38 aspirin AdvReac Nausea & Verified 04/04/23 16:38 Vomiting erythromycin base AdvReac Dyspnea Verified 04/04/23 16:38 Sulfa (Sulfonamide AdvReac Dyspnea & Verified 04/04/23 16:38 Antibiotics) Nausea/Vomiting tramadol [From Ultram] AdvReac Nausea & Verified 04/04/23 18:26 Vomiting Dial Soap Allergy Unknown Rash/Hives, Uncoded 04/04/23 16:38 itching Review of Systems ROS Other: All systems not noted in ROS Statement are negative. <Sharla Goff - Last Filed: 04/04/23 16:38> ROS Other: All systems not noted in ROS Statement are negative. <Josh Quinteros - Last Filed: 04/04/23 19:53> ROS Statement: Those systems with pertinent positive or pertinent negative responses have been documented in the HPI. Past Medical History Past Medical History: Cancer, COPD, CVA/TIA, Fibromyalgia, Hypertension Additional Past Medical History / Comment(s): TIA, right hand tendons severed a nd repaired, closed head injury, multiple sclerosis, short bowel syndrome, pancreatic insufficiency, bowel cancer History of Any Multi-Drug Resistant Organisms: C-DIFF Date of last positivie culture/infection: 2014 MDRO Source:: patient Past Surgical History: Back Surgery Additional Past Surgical History / Comment(s): stomach cancer, right hemicolectomy and small bowel resection. Back surgery by Past Anesthesia/Blood Transfusion Reactions: No Reported Reaction Additional Past Anesthesia/Blood Transfusion Reaction / Comment(s): States she thinks her father may have had some problems with anesthesia but is not sure what they were. Past Psychological History: Anxiety, Bipolar, Depression, PTSD Smoking Status: Current every day smoker Past Alcohol Use History: None Reported Past Drug Use History: None Reported - Past Family History Father Family Medical History: No Reported History Additional Family Medical History / Comment(s): . Mother Family Medical History: No Reported History Additional Family Medical History / Comment(s): . Sister(s) Family Medical History: No Reported History Additional Family Medical History / Comment(s): Patient has sisters all have female problems. She does state there is breast cancer history in her aunt. Son(s) Family Medical History: No Reported History Additional Family Medical History / Comment(s): . Brother(s) Family Medical History: Cancer Additional Family Medical History / Comment(s): esophageal cancer <Sharla Goff - Last Filed: 04/04/23 16:38> General Exam <Sharla Goff - Last Filed: 04/04/23 16:38> <Josh Quinteros - Last Filed: 04/04/23 19:53> - General Exam Comments Initial Comments: Visual Physical Exam Vital signs reviewed General: Well-appearing, nontoxic, no acute distress. Head: Normocephalic, atraumatic Eyes: PERRLA, EOMI ENT: Airway patent Chest: Nonlabored breathing Skin: No visual rash, normal skin tone Neuro: Alert and oriented 3 Musculoskeletal: No gross abnormalities (Sharla Goff) GENERAL: Patient is well-developed and well-nourished. Patient is nontoxic and well-hydrated and is in no acute distress. Patient asking for something to drink ENT: Neck is soft and supple. No significant lymphadenopathy is noted. Oropharynx is clear. Moist mucous membranes. Neck has full range of motion without eliciting any pain. EYES: The sclera were anicteric and conjunctiva were pink and moist. Extraocular movements were intact and pupils were equal round and reactive to light. Eyelids were unremarkable. PULMONARY: Unlabored respirations. Good breath sounds bilaterally. No audible rales rhonchi or wheezing was noted. CARDIOVASCULAR: There is a regular rate and rhythm without any murmurs gallops or rubs. ABDOMEN: Soft and nontender with normal bowel sounds. No palpable organomegaly was noted. There is no palpable pulsatile mass. SKIN: Skin is clear with no lesions or rashes and otherwise unremarkable. NEUROLOGIC: Patient is alert and oriented x3. Cranial nerves II through XII are grossly intact. Motor and sensory are also intact. Normal speech, volume and content. Symmetrical smile. MUSCULOSKELETAL: Normal extremities with adequate strength and full range of motion. LYMPHATICS: No significant lymphadenopathy is noted PSYCHIATRIC: Normal psychiatric evaluation. (Josh Quinteros) Course Vital Signs 04/04/23 04/04/23 16:35 18:08 Temperature 98.3 F 99.1 F Pulse Rate 92 85 Respiratory 18 16 Rate Blood Pressure 100/65 114/75 O2 Sat by Pulse 96 97 Oximetry Medical Decision Making <Sharla Goff - Last Filed: 04/04/23 16:38> - Lab Data Result diagrams: 04/04/23 17:22 04/04/23 17:22 <Josh Quinteros - Last Filed: 04/04/23 19:53> - Medical Decision Making I performed a quick note portion of this chart. Electronically signed by Sharla Goff PA-C (Sharla Goff) Was pt. sent in by a medical professional or institution ([facility], RAILROAD POLICE OFFICER, urgent care, hospital, or senior living...) When possible be specific @ -No Did you speak to anyone other than the patient for history (EMS, parent, family, police, friend...)? What history was obtained from this source @ -No Did you review nursing and triage notes (agree or disagree)? Why? @ -I reviewed and agree with nursing and triage notes Were old charts reviewed (outside hosp., previous admission, EMS record, old EKG , old radiological studies, urgent care reports/EKG's, senior living records)? Report findings @ -I reviewed prior charts from prior lab work Differential Diagnosis (chest pain, altered mental status, abdominal pain women, abdominal pain men, vaginal bleeding, weakness, fever, dyspnea, syncope, headache, dizziness, GI bleed, back pain, seizure, CVA, palpatations, mental health, musculoskeletal)? @ -Differential Abdominal Pain Women: Appendicitis, Cholecystitis, diverticulosis, ischemic bowel, pancreatitis, hepatitis, UTI, gastroenteritis, AAA, incarcerated hernia, bowel obstruction, constipation, inflammatory bowel, hepatitis, peptic ulcer disease, splenic infarction, perforated viscus, vulvitis, ovarian torsion, PID, kidney stone, placenta abruption, this is not meant to be an all-inclusive list EKG interpreted by me (3pts min.). @ -As above X-rays interpreted by me (1pt min.). @ -None done CT interpreted by me (1pt min.). @ -None done U/S interpreted by me (1pt. min.). @ -None done What testing was considered but not performed or refused? (CT, X-rays, U/S, labs)? Why? @ -None What meds were considered but not given or refused? Why? @ -None Did you discuss the management of the patient with other professionals (professionals i.e. , PA, RAILROAD POLICE OFFICER, lab, RT, psych nurse, social media marketing analyst, sales representative publications, teacher, morals squad police officer, casework manager)? Give summary @ -I spoke with Dr. Haq Was smoking cessation discussed for >3mins.? @ -No Was critical care preformed (if so, how long)? @ -No Were there social determinants of health that impacted care today? How? (Homelessness, low income, unemployed, alcoholism, drug addiction, transportation, low edu. Level, literacy, decrease access to med. care, retirement, rehab)? @ -No Was there de-escalation of care discussed even if they declined (Discuss DNR or withdrawal of care, Hospice)? DNR status @ -No What co-morbidities impacted this encounter? (DM, HTN, Smoking, COPD, CAD, Cancer, CVA, ARF, Chemo, Hep., AIDS, mental health diagnosis, sleep apnea, morbi d obesity)? @ -None Was patient admitted / discharged? Hospital course, mention meds given and route, prescriptions, significant lab abnormalities, going to OR and other pertinent info. @ -Patient received a liter of normal saline fluid who had no vomiting in the emergency department and did want to drink fluids while in the emergency room. Patient had no problem tolerating fluids. Patient had no abdominal pain. On reexamination patient was in no distress had no abdominal pain. I spoke with Dr. Haq he stated he would follow-up as an outpatient Undiagnosed new problem with uncertain prognosis? @ -No Drug Therapy requiring intensive monitoring for toxicity (Heparin, Nitro, Insulin, Cardizem)? @ -No Were any procedures done? @ -No Diagnosis/symptom? @ -Acute vomiting Acute, or Chronic, or Acute on Chronic? @ -Acute Uncomplicated (without systemic symptoms) or Complicated (systemic symptoms)? @ -Uncomplicated Side effects of treatment? @ -No Exacerbation, Progression, or Severe Exacerbation? @ -No Poses a threat to life or bodily function? How? (Chest pain, USA, ID, pneumonia, PE, COPD, DKA, ARF, appy, cholecystitis, CVA, Diverticulitis, Homicidal, Suicidal, threat to staff... and all critical care pts) @ -No Diagnosis/symptom? @ -Dehydration Acute, or Chronic, or Acute on Chronic? @ -Acute Uncomplicated (without systemic symptoms) or Complicated (systemic symptoms)? @ -Uncomplicated Side effects of treatment? @ -none Exacerbation, Progression, or Severe Exacerbation] @ -no Poses a threat to life or bodily function? @ -no (Josh Quinteros) - Lab Data Lab Results 04/04/23 04/04/23 04/04/23 Range/Units 17:22 17:22 17:22 WBC 6.9 (3.8-10.6) k/uL RBC 2.77 L (3.80-5.40) m/uL Hgb 9.4 L (11.4-16.0) gm/dL Hct 28.9 L (34.0-46.0) % MCV 104.4 H (80.0-100.0) fL MCH 33.8 (25.0-35.0) pg MCHC 32.4 (31.0-37.0) g/dL RDW 13.4 (11.5-15.5) % Plt Count 294 (150-450) k/uL MPV 7.8 Neutrophils % 70 % Lymphocytes % 18 % Monocytes % 9 % Eosinophils % 1 % Basophils % 0 % Neutrophils # 4.8 (1.3-7.7) k/uL Lymphocytes # 1.3 (1.0-4.8) k/uL Monocytes # 0.6 (0-1.0) k/uL Eosinophils # 0.1 (0-0.7) k/uL Basophils # 0.0 (0-0.2) k/uL Macrocytosis Slight Sodium 135 L (137-145) mmol/L Potassium 3.6 (3.5-5.1) mmol/L Chloride 93 L (98-107) mmol/L Carbon Dioxide 21 L (22-30) mmol/L Anion Gap 21 mmol/L BUN 60 H (7-17) mg/dL Creatinine 2.72 H (0.52-1.04) mg/dL Est GFR (CKD-EPI)AfAm 20 (>60 ml/min/1.73 sqM) Est GFR (CKD-EPI)NonAf 17 (>60 ml/min/1.73 sqM) Glucose 103 H (74-99) mg/dL Calcium 8.0 L (8.4-10.2) mg/dL Magnesium 3.2 H (1.6-2.3) mg/dL Total Bilirubin 0.7 (0.2-1.3) mg/dL AST 19 (14-36) U/L ALT 11 (4-34) U/L Alkaline Phosphatase 61 (38-126) U/L Total Protein 6.9 (6.3-8.2) g/dL Albumin 4.2 (3.5-5.0) g/dL Amylase 45 (30-110) U/L Lipase 78 (23-300) U/L Urine Color Yellow Urine Appearance Clear (Clear) Urine pH 5.5 (5.0-8.0) Ur Specific [place] 1.019 (1.001-1.035) Urine Protein Trace H (Negative) Urine Glucose (UA) Negative (Negative) Urine Ketones 1+ H (Negative) Urine Blood Small H (Negative) Urine Nitrite Negative (Negative) Urine Bilirubin Negative (Negative) Urine Urobilinogen <2.0 (<2.0) mg/dL Ur Leukocyte Esterase Negative (Negative) Urine RBC 30 H (0-5) /hpf Urine WBC 2 (0-5) /hpf Ur Squamous Epith Cells 3 (0-4) /hpf Urine Bacteria Rare H (None) /hpf Urine Mucus Rare H (None) /hpf Disposition <Sharla Goff - Last Filed: 04/04/23 16:38> Is patient prescribed a controlled substance at d/c from ED?: No Time of Disposition: 19:52 <Josh Quinteros - Last Filed: 04/04/23 19:53> Clinical Impression: Dehydration, Acute vomiting Disposition: HOME SELF-CARE Condition: Good Instructions (If sedation given, give patient instructions): Acute Nausea and Vomiting (ED) Additional Instructions: Patient should take Zofran as prescribed. Patient should increase intake of fluids. Patient should follow-up with Dr. Haq. Referrals: None,Stated [REFERRING] - 1-2 days
[2023-04-04] MEDS ORDERED: SODIUM CHLORIDE 0.9% 500 ML 500 ML IV ONE ×2 (17:41→19:23)
[2023-04-04] MEDS ORDERED: ONDANSETRON 4 MG/2 ML VIAL IVP STA (17:41)
[2023-04-04] MEDS ORDERED: traMADol 50 MG TAB PO STA (18:09)
[2023-04-04 18:11] VITALS: BP 114/75; PULSE 85; TEMP 99.1
[2023-04-04 18:26] LABS: Basophils % (A) 0 %; Eosinophils # (A) 0.1 k/uL (0-0.7); Eosinophils % (A) 1 %; HCT 28.9 % (34.0-46.0); HGB 9.4 gm/dL (11.4-16.0); Lymphocytes # (A) 1.3 k/uL (1.0-4.8); Lymphocytes % (A) 18 %; MCH 33.8 pg (25.0-35.0); MCHC 32.4 g/dL (31.0-37.0); MCV 104.4 fL (80.0-100.0); Macrocytosis Slight; Mean Platelet Volume 7.8; Monocytes # (A) 0.6 k/uL (0-1.0); Monocytes % (A) 9 %; Neutrophils # (A) 4.8 k/uL (1.3-7.7); Neutrophils % (A) 70 %; Platelet Count 294 k/uL (150-450); RBC 2.77 m/uL (3.80-5.40); RDW 13.4 % (11.5-15.5); WBC 6.9 k/uL (3.8-10.6)
[2023-04-04] MEDS ORDERED: Acetaminophen-Codeine 300-30mg TAB PO STA (18:32)
[2023-04-04 18:49] LABS: ALT 11 U/L (4-34); AST 19 U/L (14-36); African American GFR (CKD) 20 (>60 ml/min/1.73 sqM); Albumin 4.2 g/dL (3.5-5.0); Alkaline Phosphatase 61 U/L (38-126); Amylase 45 U/L (30-110); Anion Gap 21 mmol/L; Blood Urea Nitrogen 60 mg/dL (7-17); Carbon Dioxide 21 mmol/L (22-30); Chloride 93 mmol/L (98-107); Glucose 103 mg/dL (74-99); Lipase 78 U/L (23-300); Magnesium 3.2 mg/dL (1.6-2.3); Non-African American GFR(CKD) 17 (>60 ml/min/1.73 sqM); Potassium 3.6 mmol/L (3.5-5.1); Sodium 135 mmol/L (137-145); Total Bilirubin 0.7 mg/dL (0.2-1.3); Total Protein 6.9 g/dL (6.3-8.2)
[2023-04-04 19:00] LABS: Appearance,Urine Clear (Clear); Bacteria,Urine Rare /hpf; Bilirubin,Urine Negative (Negative); Blood,Urine Small (Negative); Color,Urine Yellow; Glucose,Urine (UA) Negative (Negative); Ketones,Urine 1+ (Negative); Leukocyte Esterase,Urine Negative (Negative); Mucus,Urine Rare /hpf; Nitrite,Urine Negative (Negative); PH, Urine 5.5 (5.0-8.0); Protein,Urine Trace (Negative); RBC,Urine 30 /hpf (0-5); Specific Gravity,Urine 1.019 (1.001-1.035); Squamous Epithelial Cell,Urine 3 /hpf (0-4); Urobilinogen,Urine <2.0 mg/dL (<2.0); WBC,Urine 2 /hpf (0-5)
[2023-04-04] MEDS ORDERED: ONDANSETRON 4 MG ODT STARTER PACK 2 TAB BTL PO STA (19:53)
[2023-04-04 20:57] VITALS: RESP 18
== END 2023-04-04 20:48 | disposition home or self-care (01) ==
LOC: EC 16:06
DX: E86.0 Dehydration (principal); J44.9 Chronic obstructive pulmonary disease, unspecified; I10 Essential (primary) hypertension; F41.9 Anxiety disorder, unspecified; F31.9 Bipolar disorder, unspecified; F17.200 Nicotine dependence, unspecified, uncomplicated; Z79.899 Other long term (current) drug therapy; Z88.6 Allergy status to analgesic agent; Z86.73 Personal history of transient ischemic attack (TIA), and cerebral infarction without residual deficits; Z88.2 Allergy status to sulfonamides; Z88.0 Allergy status to penicillin; Z91.013 Allergy to seafood; Z91.018 Allergy to other foods; Z88.8 Allergy status to other drugs, medicaments and biological substances
CPT/HCPCS: 36415; 80053; 82150; 83690; 83735; 85025; 81001; 99284; 96374; 96361; J2405; S0119

== ENCOUNTER 2023-04-10 13:41 | Inpatient (IN) | payer MEDICARE, OTHER ==
--- NOTE | 2023-04-10 14:11 | ED ---
General Adult HPI - General Chief complaint: Fall Stated complaint: Dehydration, FTT Time Seen by Provider: 04/10/23 13:45 Source: patient, EMS Mode of arrival: EMS Limitations: no limitations - History of Present Illness Initial comments: Dictation was produced using [employer] dictation software. please excuse any grammatical, word or spelling errors. Chief Complaint: 67-year-old female presents with frequent falls, dehydration and poor social situation History of Present Illness: 67-year-old female she has multiple comorbidities. She was brought in by EMS from home. Pale patient was last seen in emergency department 6 days ago. Patient was at home. She states that no one can help take care of her at home. States that she is really weak and has fallen multiple times at home. States that she fell recently had her head and her back. Patient does not have any assistance at home. Denies any shortness of breath. No chest pain. No abdominal pain. No nausea vomiting. The ROS documented in this emergency department record has been reviewed and confirmed by me. Those systems with pertinent positive or negative responses have been documented in the HPI. All other systems are other negative and/or noncontributory. - Related Data Home Medications Medication Instructions Recorded Confirmed Folic Acid 1 mg PO DAILY 05/24/17 03/31/23 DULoxetine HCL [Cymbalta] 60 mg PO AC-BRKFST 05/17/21 03/31/23 Gabapentin [Neurontin] 300 mg PO TID 05/17/21 03/31/23 Lipase/Protease/Amylase [Zenpep Dr 1 cap PO PC-TID PRN 05/17/21 03/31/23 40,000 Unit Capsule] ALPRAZolam [Xanax] 0.25 mg PO BID 08/24/22 03/31/23 Acetaminophen with Codeine 1 - 2 tab PO Q8H PRN 08/24/22 03/31/23 [Tylenol #4 Tablet] DULoxetine HCL [Cymbalta] 30 mg PO PC-LUNCH 08/24/22 03/31/23 methocarbamoL [Robaxin] 500 mg PO TID PRN 08/24/22 03/31/23 traZODone HCL 150 mg PO PC-LUNCH 08/24/22 03/31/23 Calcium Carbonate [Tums] 500 mg PO TID-W/MEALS 03/31/23 03/31/23 Famotidine 20 mg PO BID 03/31/23 03/31/23 Loperamide [Imodium] 2 mg PO TID PRN 03/31/23 03/31/23 Magnesium Oxide [Mag-Ox] 400 mg PO BID 03/31/23 03/31/23 QUEtiapine FUMARATE [SEROquel XR] 300 mg PO HS 03/31/23 03/31/23 Sodium Bicarbonate Tab 650 mg PO BID 03/31/23 03/31/23 Previous Rx's Medication Instructions Recorded Cyanocobalamin [Vitamin B-12] 1,000 mcg PO DAILY #30 tablet 08/27/22 Ondansetron Odt [Zofran Odt] 4 mg PO Q8HR PRN #20 tab 03/31/23 Pantoprazole [Protonix] 40 mg PO DAILY 14 Days #14 tab 03/31/23 Allergies Allergy/AdvReac Type Severity Reaction Status Date / Time divalproex sodium Allergy Unknown Verified 04/10/23 13:53 [From Depakote] ketorolac [From Toradol] Allergy Unknown Verified 04/10/23 13:53 Penicillins Allergy Anaphylaxis Verified 04/10/23 13:53 shellfish derived [Shellfish] Allergy Rash/Hives Verified 04/10/23 13:53 strawberry Allergy Rash/Hives Verified 04/10/23 13:53 alcohol AdvReac Vomiting Verified 04/10/23 13:53 aspirin AdvReac Nausea & Verified 04/10/23 13:53 Vomiting erythromycin base AdvReac Dyspnea Verified 04/10/23 13:53 Sulfa (Sulfonamide AdvReac Dyspnea & Verified 04/10/23 13:53 Antibiotics) Nausea/Vomiting tramadol [From Ultram] AdvReac Nausea & Verified 04/10/23 13:53 Vomiting Dial Soap Allergy Unknown Rash/Hives, Uncoded 04/10/23 13:53 itching Review of Systems ROS Statement: Those systems with pertinent positive or pertinent negative responses have been documented in the HPI. ROS Other: All systems not noted in ROS Statement are negative. Past Medical History Past Medical History: Cancer, COPD, CVA/TIA, Fibromyalgia, Hypertension Additional Past Medical History / Comment(s): TIA, right hand tendons severed and repaired, closed head injury, multiple sclerosis, short bowel syndrome, pancreatic insufficiency, bowel cancer History of Any Multi-Drug Resistant Organisms: C-DIFF Date of last positivie culture/infection: 2014 MDRO Source:: patient Past Surgical History: Back Surgery Additional Past Surgical History / Comment(s): stomach cancer, right hemicolectomy and small bowel resection. Back surgery by Past Anesthesia/Blood Transfusion Reactions: No Reported Reaction Additional Past Anesthesia/Blood Transfusion Reaction / Comment(s): States she thinks her father may have had some problems with anesthesia but is not sure what they were. Past Psychological History: Anxiety, Bipolar, Depression, PTSD Smoking Status: Current every day smoker Past Alcohol Use History: None Reported Past Drug Use History: None Reported - Past Family History Father Family Medical History: No Reported History Additional Family Medical History / Comment(s): . Mother Family Medical History: No Reported History Additional Family Medical History / Comment(s): . Sister(s) Family Medical History: No Reported History Additional Family Medical History / Comment(s): Patient has sisters all have female problems. She does state there is breast cancer history in her aunt. Son(s) Family Medical History: No Reported History Additional Family Medical History / Comment(s): . Brother(s) Family Medical History: Cancer Additional Family Medical History / Comment(s): esophageal cancer General Exam - General Exam Comments Initial Comments: PHYSICAL EXAM: General Impression: Alert and oriented x3, not in acute distress HEENT: Normocephalic atraumatic, extra-ocular movements intact, pupils equal and reactive to light bilaterally, mucous membranes moist. Cardiovascular: Heart regular rate and rhythm Chest: Able to complete full sentences, no retractions, no tachypnea Abdomen: abdomen soft, non-tender, non-distended, no organomegaly Musculoskeletal: Pulses present and equal in all extremities, no peripheral edema Motor: no focal deficits noted Neurological: CN II-XII grossly intact, no focal motor or sensory deficits noted Skin: Intact with no visualized rashes Psych: Normal affect and mood Limitations: no limitations Course Vital Signs 04/10/23 13:44 Temperature 97.7 F Pulse Rate 76 Respiratory 18 Rate Blood Pressure 110/68 O2 Sat by Pulse 93 L Oximetry EKG Findings - EKG Comments: EKG Findings:: My EKG interpretation: Ventricular rate 82, sinus rhythm,. Interval to 2, QRS 79, QTc 449. No GA prolongation, no QTC prolongation, no ST or T-wave changes noted. EKG compared to 10/01/2022 showing no changes. Overall, this EKG is unremarkable Medical Decision Making - Medical Decision Making Was pt. sent in by a medical professional or institution (, GOOD, ROLLER OPERATOR, urgent care, hospital, or long term...) When possible be specific @ -No Did you speak to anyone other than the patient for history (EMS, parent, family, police, friend...)? What history was obtained from this source @ -No Did you review nursing and triage notes (agree or disagree)? Why? @ -I reviewed and agree with nursing and triage notes Were old charts reviewed (outside hosp., previous admission, EMS record, old EKG, old radiological studies, urgent care reports/EKG's, long term records)? Report findings @ -No old charts were reviewed Differential Diagnosis (chest pain, altered mental status, abdominal pain women, abdominal pain men, vaginal bleeding, musculoskeletal, weakness, fever, dyspnea, syncope, headache, dizziness, GI bleed, back pain, seizure, CVA, palpatations, mental health)? @ -Differential Weakness: Hypoglycemia, shock, sepsis, hyponatremia, anemia, infection, LA, ETOH, adverse medicine reaction, overdose, stroke, this is not meant to be an all-inclusive list. EKG interpreted by me (3pts min.). @ -See above X-rays interpreted by me (1pt min.). @ -None done CT interpreted by me (1pt min.). @ -Computed tomography scan of the head and C-spine lumbar spine shows no acute processes. U/S interpreted by me (1pt. min.). @ -None done What testing was considered but not performed or refused? (CT, X-rays, U/S, labs)? Why? @ -None What meds were considered but not given or refused? Why? @ -None Did you discuss the management of the patient with other professionals (professionals i.e. GOOD [facility], ROLLER OPERATOR, lab, RT, psych nurse, psychosocial rehabilitation counselor, ticket sales supervisor, teacher, environmental conservation officer, shelter case manager)? Give summary @ -Discussed with Dr. Haq for admission. Requesting hematology and nephrology consultation Was smoking cessation discussed for >3mins.? @ -No Was critical care preformed (if so, how long)? @ -No Were there social determinants of health that impacted care today? How? (Homelessness, low income, unemployed, alcoholism, drug addiction, tr ansportation, low edu. Level, literacy, decrease access to med. care, retirement, rehab)? @ -No Was there de-escalation of care discussed even if they declined (Discuss DNR or withdrawal of care, Hospice)? DNR status @ -No What co-morbidities impacted this encounter? (DM, HTN, Smoking, COPD, CAD, Cancer, CVA, ARF, Chemo, Hep., AIDS, mental health diagnosis, sleep apnea, morbid obesity)? @ -Red cell aplasia Was patient admitted / discharged? Hospital course, mention meds given and route, prescriptions, significant lab abnormalities, going to OR and other pertinent info. @ -67-year-old female with comorbidities presents to the ER after frequent falls and generalized weakness. Vital signs upon arrival are within acceptable limits. Patient no acute distress at bedside. She does complain of some genetic back pain. He moves and 0.7. Patient has waxing and waning hemoglobin levels. Slight leukocytosis. Hyponatremia. Patient has anion gap acidosis screening 2.06 with a BUN of 83. Suspect this is caused by renal failure. Calcium of 6.3. Patient given calcium supplementation. Patient given IV fluids. Will be admitted with consultation to nephrology and rheumatology. Undiagnosed new problem with uncertain prognosis? @ -No Drug Therapy requiring intensive monitoring for toxicity (Heparin, Nitro, Insulin, Cardizem)? @ -No Were any procedures done? @ -No Diagnosis/symptom? Acute, or Chronic, or Acute on Chronic? Uncomplicated (without systemic symptoms) or Complicated (systemic symptoms)? @ -1. Acute kidney injury, 2. Anemia, 3. Generalized weakness, 4. Hypocalcemia Side effects of treatment? @ -No Exacerbation, Progression, or Severe Exacerbation? @ -No Poses a threat to life or bodily function? How? (Chest pain, USA, LA, pneumonia, PE, COPD, DKA, ARF, appy, cholecystitis, CVA, Diverticulitis, Homicidal, Suicidal, threat to staff... and all critical care pts) @ -yes - Lab Data Result diagrams: 04/10/23 14:14 04/10/23 14:14 Lab Results 04/10/23 04/10/2323 Range/Units 14:14 14:14 14:14 WBC 13.7 H (3.8-10.6) k/uL RBC 2.24 L (3.80-5.40) m/uL Hgb 7.7 L D (11.4-16.0) gm/dL Hct 23.7 L (34.0-46.0) % MCV 105.6 H (80.0-100.0) fL MCH 34.4 (25.0-35.0) pg MCHC 32.6 (31.0-37.0) g/dL RDW 13.3 (11.5-15.5) % Plt Count 302 (150-450) k/uL MPV 8.1 Neutrophils % 94 % Lymphocytes % 3 % Monocytes % 2 % Eosinophils % 0 % Basophils % 0 % Neutrophils # 12.9 H (1.3-7.7) k/uL Lymphocytes # 0.4 L (1.0-4.8) k/uL Monocytes # 0.3 (0-1.0) k/uL Eosinophils # 0.0 (0-0.7) k/uL Basophils # 0.0 (0-0.2) k/uL Hypochromasia Slight Macrocytosis Moderate Sodium 131 L (137-145) mmol/L Potassium 4.1 (3.5-5.1) mmol/L Chloride 96 L (98-107) mmol/L Carbon Dioxide 10 L (22-30) mmol/L Anion Gap 25 mmol/L BUN 83 H (7-17) mg/dL Creatinine 3.06 H (0.52-1.04) mg/dL Est GFR (CKD-EPI)AfAm 17 (>60 ml/min/1.73 sqM) Est GFR (CKD-EPI)NonAf 15 (>60 ml/min/1.73 sqM) Glucose 107 H (74-99) mg/dL Plasma Lactic Acid Cristiano 1.0 (0.7-2.0) mmol/L Calcium 6.3 L* (8.4-10.2) mg/dL Magnesium 2.9 H (1.6-2.3) mg/dL Total Bilirubin 1.0 (0.2-1.3) mg/dL AST 42 H (14-36) U/L ALT 15 (4-34) U/L Alkaline Phosphatase 73 (38-126) U/L Total Protein 6.2 L (6.3-8.2) g/dL Albumin 3.4 L (3.5-5.0) g/dL Disposition Clinical Impression: Weakness Disposition: ADMITTED IP TO THIS [facility] Condition: Serious Referrals: Meseret Haq MD [Primary Care Provider] - 1-2 days Decision Time: 15:00
[2023-04-10 14:44] LABS: ALT 15 U/L (4-34); AST 42 U/L (14-36); African American GFR (CKD) 17 (>60 ml/min/1.73 sqM); Albumin 3.4 g/dL (3.5-5.0); Alkaline Phosphatase 73 U/L (38-126); Anion Gap 25 mmol/L; Blood Urea Nitrogen 83 mg/dL (7-17); Carbon Dioxide 10 mmol/L (22-30); Chloride 96 mmol/L (98-107); Glucose 107 mg/dL (74-99); Magnesium 2.9 mg/dL (1.6-2.3); Non-African American GFR(CKD) 15 (>60 ml/min/1.73 sqM); Potassium 4.1 mmol/L (3.5-5.1); Sodium 131 mmol/L (137-145); Total Protein 6.2 g/dL (6.3-8.2)
[2023-04-10 14:45] LABS: Calcium 6.3 mg/dL (8.4-10.2)
[2023-04-10 14:50] LABS: Basophils % (A) 0 %; Eosinophils % (A) 0 %; HCT 23.7 % (34.0-46.0); Hypochromasia Slight; Lymphocytes # (A) 0.4 k/uL (1.0-4.8); Lymphocytes % (A) 3 %; MCH 34.4 pg (25.0-35.0); MCHC 32.6 g/dL (31.0-37.0); MCV 105.6 fL (80.0-100.0); Macrocytosis Moderate; Mean Platelet Volume 8.1; Monocytes # (A) 0.3 k/uL (0-1.0); Monocytes % (A) 2 %; Neutrophils # (A) 12.9 k/uL (1.3-7.7); Neutrophils % (A) 94 %; Platelet Count 302 k/uL (150-450); RBC 2.24 m/uL (3.80-5.40); RDW 13.3 % (11.5-15.5); WBC 13.7 k/uL (3.8-10.6)
[2023-04-10 14:57] LABS: HGB 7.7 gm/dL (11.4-16.0)
--- NOTE | 2023-04-10 14:59 | CT ---
EXAMINATION TYPE: CT brain zeinab wo con DATE OF EXAM: 04/10/2023 COMPARISON: 09/30/2022 HISTORY: fall, hit head CT DLP: 1145.6 mGycm, Automated exposure control for dose reduction was used. CONTRAST: None CT of the brain is performed utilizing 3 mm thick sections through the posterior fossa and 3 mm thick sections through the remaining calvarium. Study is performed within 24 hours of arrival to the hospital. No abnormal hyperdensity is present to suggest an acute intracranial hemorrhage. No mass lesion is evident. No acute infarcts are evident. Mild periventricular white matter hypodensity is present, likely on t he basis of chronic white matter ischemic changes. Ventricles and sulci are prominent for the patient age. There is an air-fluid level within the right maxillary sinus. Correlate for acute maxillary sinusitis . Remaining paranasal sinuses appear clear. Mastoid air cells are clear. No acute fractures are evide nt. Left orbital floor appears intact. IMPRESSIONS: 1. No acute intracranial process. Follow-up MRI can be performed as clinically indicated. 2. Chronic appearing stable periventricular white matter ischemic type changes. CT cervical spine. COMPARISON: None CT of the cervical spine is performed in the axial plane at 2 mm thick sections. Reconstructed image s in the coronal, and sagittal plane are reviewed on the computer. No acute fractures are evident. Vertebral body alignment is normal. Disc heights are preserved. Vertebral body heights are preserved. No spinal canal stenosis is evident. Significant foraminal narrowing is not evident. IMPRESSION: 1. No acute osseous abnormality cervical spine.
--- NOTE | 2023-04-10 15:06 | CT ---
EXAMINATION TYPE: CT lumbar spine wo con DATE OF EXAM: 04/10/2023 COMPARISON: 10/01/2022 CT abdomen and pelvis HISTORY: fall, back pain CT DLP: 566.5 mGycm CONTRAST: None TECHNIQUE: CT of the lumbar spine is performed on a spiral scan at 3 mm thick sections. Reconstructed images are performed in the coronal and sagittal planes. FINDINGS: Vertebroplasty of L3 and L4 is evident. Posterior-superior endplate spurring is present wit h moderate anterior thecal sac impression at L3 and mild anterior thecal sac compression at L4. Mild spinal canal narrowing at the L3-4 level may be present. Findings are stable from comparison. No focal disc herniation or significant disc bulge is evident. Mild disc bulge at all 4 5 has anterior thecal sac flattening. Facet hypertrophy and ligamentum flavu m laxity is posterior-lateral thecal sac impression degenerative spinal canal stenosis. Moderate foraminal narrowing L2-3 and L3-4 is present. IMPRESSION: Chronic compression deformities with post vertebroplasty changes L3 and L4. Posterior superior wall d isplacement contributing to some thecal sac compression and canal narrowing appears stable from harpreet rison. No acute osseous changes evident.
[2023-04-10] MEDS ORDERED: CALCIUM GLUCONATE IN NACL 2 GM in SALINE 1 100ML.BAG IVPB ONE (15:16)
[2023-04-10] MEDS ORDERED: SODIUM CHLORIDE 0.9% 1,000 ML IV STA (15:22)
[2023-04-10] MEDS ORDERED: NALOXONE 0.4 MG/ML 1 ML VIAL IV PRN (15:23)
[2023-04-10] MEDS ORDERED: SODIUM CHLORIDE 0.9% 1,000 ML IV SCH (15:30)
[2023-04-10 15:34] LABS: Amorphous Sediment,Urine Rare /hpf; Appearance,Urine Cloudy (Clear); Bacteria,Urine Rare /hpf; Bilirubin,Urine Negative (Negative); Blood,Urine Small (Negative); Calcium Oxalate Crystals,Urine Occasional /hpf; Color,Urine Yellow; Glucose,Urine (UA) Negative (Negative); Ketones,Urine Trace (Negative); Leukocyte Esterase,Urine Negative (Negative); Mucus,Urine Rare /hpf; Nitrite,Urine Negative (Negative); PH, Urine 5.5 (5.0-8.0); Protein,Urine 1+ (Negative); RBC,Urine 9 /hpf (0-5); Specific Gravity,Urine 1.017 (1.001-1.035); Squamous Epithelial Cell,Urine 2 /hpf (0-4); Urobilinogen,Urine <2.0 mg/dL (<2.0); WBC,Urine 6 /hpf (0-5)
[2023-04-10] MEDS: DEXTROSE 5% IN WATER 1,000 ML with SODIUM BICARB (1 MEQ/ML) 150 ML IV SCH (17:19)
[2023-04-10] MEDS ORDERED: ALPRAZolam 0.25 MG TAB PO PRN (18:49)
[2023-04-10] MEDS ORDERED: LIPASE 20,000/PROTEASE 63,000/AMYLASE 84,000 PO PRN (18:49)
[2023-04-10] MEDS ORDERED: ONDANSETRON ODT 4 MG TAB PO PRN (18:49)
[2023-04-10] MEDS ORDERED: Acetaminophen-Codeine 300-30mg TAB PO PRN (18:49)
[2023-04-10] MEDS ORDERED: methocarbamoL 500 MG TAB PO PRN (18:49)
[2023-04-10] MEDS ORDERED: ALBUTEROL NEBULIZED 2.5 MG/3 ML INHALATION PRN (18:49)
--- NOTE | 2023-04-10 19:29 | US ---
EXAMINATION TYPE: US kidneys/renal and bladder DATE OF EXAM: 04/10/2023 COMPARISON: 04/11/21. CT:10/01/22 CLINICAL INDICATION: Female, 67 years old with history of [employer] notes:Extremely limited due to excessive amount of bowel EXAM MEASUREMENTS: Right Kidney: 8.0 x 4.4 x 4.9 cm Left Kidney: Not visualized Right Kidney: Dilated renal pelvis, possible mild hydronephrosis seen. Lower pole limited due to susana l Left Kidney: Not visualized due to bowel and body habitus. Tried supine and RLD Bladder: wnl Bilateral Jets seen: No There appear to be prominent fluid-filled peristalsing bowel loops. IMPRESSION: 1. Limited by extensive fluid distended and peristalsing bowel loops. Correlate for the possibility o f an underlying ileus or bowel obstruction. 2. Unable to visualize the left kidney due to patient condition. 3. Unable to exclude early right-sided hydronephrosis.
[2023-04-10] MEDS ORDERED: ERGOCALCIFEROL 1,250 MCG (50,000 IU) CAPSULE PO SCH (21:00)
[2023-04-10] MEDS: QUEtiapine 25 MG TAB PO SCH (21:21)
[2023-04-10] MEDS: FAMOTIDINE 20 MG TAB PO SCH (21:21)
[2023-04-10] MEDS: HEPARIN SODIUM,PORCINE 5,000 UNIT/ML 1 ML VIAL SQ SCH (21:22)
[2023-04-10] MEDS: GABAPENTIN 300 MG CAP PO SCH (21:22)
[2023-04-11] MEDS: DEXTROSE 5% IN WATER 1,000 ML with SODIUM BICARB (1 MEQ/ML) 150 ML IV SCH ×2 (07:18→18:39)
[2023-04-11] MEDS ORDERED: PANTOPRAZOLE 40 MG TABLET PO SCH (09:00)
[2023-04-11] MEDS: CALCIUM CARBONATE 500 MG CHEWABLE PO SCH ×3 (09:00→18:21)
[2023-04-11] MEDS: CYANOCOBALAMIN 500 MCG TAB PO SCH (09:00)
[2023-04-11] MEDS: DULoxetine HCL 30 MG CAPSULE.DR PO SCH ×2 (09:00→14:21)
[2023-04-11] MEDS: QUEtiapine 25 MG TAB PO SCH ×2 (09:01→20:43)
[2023-04-11] MEDS: FOLIC ACID 1 MG TAB PO SCH (09:01)
[2023-04-11] MEDS: FAMOTIDINE 20 MG TAB PO SCH (09:01)
[2023-04-11] MEDS: GABAPENTIN 300 MG CAP PO SCH (09:01)
[2023-04-11] MEDS: HEPARIN SODIUM,PORCINE 5,000 UNIT/ML 1 ML VIAL SQ SCH (09:02)
[2023-04-11] MEDS: DULoxetine HCL 60 MG CAPSULE.DR PO SCH (09:04)
[2023-04-11 09:09] LABS: Basophils % (A) 0 %; Eosinophils # (A) 0.1 k/uL (0-0.7); Eosinophils % (A) 1 %; Hypochromasia Marked; Lymphocytes # (A) 0.2 k/uL (1.0-4.8); Lymphocytes % (A) 3 %; MCH 34.3 pg (25.0-35.0); MCHC 31.2 g/dL (31.0-37.0); MCV 109.8 fL (80.0-100.0); Macrocytosis Marked; Mean Platelet Volume 7.3; Monocytes # (A) 0.2 k/uL (0-1.0); Monocytes % (A) 3 %; Neutrophils % (A) 93 %; Platelet Count 164 k/uL (150-450); RBC 1.47 m/uL (3.80-5.40); RDW 13.2 % (11.5-15.5); WBC 7.6 k/uL (3.8-10.6)
[2023-04-11 09:37] LABS: HCT 16.2 % (34.0-46.0); HGB 5.1 gm/dL (11.4-16.0)
[2023-04-11] MEDS ORDERED: ONDANSETRON 4 MG/2 ML VIAL IVP PRN (11:33)
[2023-04-11 11:53] LABS: ALT 12 U/L (4-34); AST 26 U/L (14-36); African American GFR (CKD) 47 (>60 ml/min/1.73 sqM); Albumin 2.1 g/dL (3.5-5.0); Albumin/Globulin Ratio 1.3; Alkaline Phosphatase 59 U/L (38-126); Blood Urea Nitrogen 73 mg/dL (7-17); Globulin 1.6 g/dL; Magnesium 1.9 mg/dL (1.6-2.3); Non-African American GFR(CKD) 41 (>60 ml/min/1.73 sqM); Sodium 123 mmol/L (137-145); Total Bilirubin 0.5 mg/dL (0.2-1.3); Total Protein 3.7 g/dL (6.3-8.2)
[2023-04-11 12:00] LABS: Anion Gap 12 mmol/L
--- NOTE | 2023-04-11 12:08 | P.NPCON ---
History of Present Illness - Reason for Consult acute renal failure - History of Present Illness Reason for consultation: Acute kidney injury History of present illness: A stent patient is a 67-year-old female seen in renal consultation for acute kidney injury. Patient's creatinine in August 2022 was near 0.8 and as low as 1.07 in September 2022. This admission patient's creatinine was elevated at 3.06. Hemoglobin this morning was 5.1 and she scheduled to receive blood transfusions. Patient will to be acidotic with a bicarbonate level of 10 on admission and is currently maintained on bicarb drip. Patient came to the hospital due to generalized weakness and falls. Patient states she's been having vomiting and diarrhea the last couple of days. Oral intake has been poor. Patient is not a very reliable historian. She denies use of nonsteroidals. She denies history of diabetes. No chest pain. Denies any active bleeding. Blood pressure stable. She is on room air. Vital signs are stable. General: No acute distress. HEENT: Head exam is unremarkable. LUNGS: No audible rhonchi or wheezes. HEART: Rate and Rhythm are regular. ABDOMEN: Nontender. EXTREMITITES: No edema. Past Medical History Past Medical History: Cancer, COPD, CVA/TIA, Fibromyalgia, Hypertension Additional Past Medical History / Comment(s): TIA, right hand tendons severed and repaired, closed head injury, multiple sclerosis, short bowel syndrome, pancreatic insufficiency, bowel cancer History of Any Multi-Drug Resistant Organisms: C-DIFF Date of last positivie culture/infection: 2014 MDRO Source:: patient Past Surgical History: Back Surgery Additional Past Surgical History / Comment(s): stomach cancer, right hemicolectomy and small bowel resection. Back surgery by Past Anesthesia/Blood Transfusion Reactions: No Reported Reaction Additional Past Anesthesia/Blood Transfusion Reaction / Comment(s): States she thinks her father may have had some problems with anesthesia but is not sure what they were. Past Psychological History: Anxiety, Bipolar, Depression, PTSD Smoking Status: Current every day smoker Past Alcohol Use History: None Reported Past Drug Use History: None Reported - Past Family History Father Family Medical History: No Reported History Additional Family Medical History / Comment(s): . Mother Family Medical History: No Reported History Additional Family Medical History / Comment(s): . Sister(s) Family Medical History: No Reported History Additional Family Medical History / Comment(s): Patient has sisters all have female problems. She does state there is breast cancer history in her aunt. Son(s) Family Medical History: No Reported History Additional Family Medical History / Comment(s): . Brother(s) Family Medical History: Cancer Additional Family Medical History / Comment(s): esophageal cancer Medications and Allergies Home Medications Medication Instructions Recorded Confirmed Type Folic Acid 1 mg PO DAILY 05/24/17 04/10/23 History DULoxetine HCL [Cymbalta] 60 mg PO AC-BRKFST 05/17/21 04/10/23 History Gabapentin [Neurontin] 300 mg PO TID 05/17/21 04/10/23 History Lipase/Protease/Amylase [Zenpep Dr 1 cap PO PC-TID PRN 05/17/21 04/10/23 History 40,000 Unit Capsule] ALPRAZolam [Xanax] 0.25 mg PO BID PRN 08/24/22 04/10/23 History Acetaminophen with Codeine 1 - 2 tab PO Q8H PRN 08/24/22 04/10/23 History [Tylenol #4 Tablet] DULoxetine HCL [Cymbalta] 30 mg PO PC-LUNCH 08/24/22 04/10/23 History methocarbamoL [Robaxin] 500 mg PO TID PRN 08/24/22 04/10/23 History traZODone HCL 150 mg PO PC-LUNCH 08/24/22 04/10/23 History Cyanocobalamin [Vitamin B-12] 1,000 mcg PO DAILY #30 tablet 08/27/22 04/10/23 Rx Calcium Carbonate [Tums] 500 mg PO TID-W/MEALS 03/31/23 04/10/23 History Famotidine 20 mg PO BID 03/31/23 04/10/23 History Loperamide [Imodium] 2 mg PO TID PRN 03/31/23 04/10/23 History Magnesium Oxide [Mag-Ox] 400 mg PO BID 03/31/23 04/10/23 History Ondansetron Odt [Zofran Odt] 4 mg PO Q8HR PRN #20 tab 03/31/23 04/10/23 Rx Pantoprazole [Protonix] 40 mg PO DAILY 14 Days #14 tab 03/31/23 04/10/23 Rx QUEtiapine FUMARATE [SEROquel XR] 300 mg PO HS 03/31/23 04/10/23 History Sodium Bicarbonate Tab 650 mg PO BID 03/31/23 04/10/23 History Albuterol Nebulized [Ventolin 2.5 mg INHALATION RT-QID PRN 04/10/23 04/10/23 History Nebulized] Ergocalciferol (Vitamin D2) 1,250 mcg PO MO 04/10/23 04/10/23 History [Drisdol (50,000 Iu)] Allergies Allergy/AdvReac Type Severity Reaction Status Date / Time divalproex sodium Allergy Unknown Verified 04/10/23 13:53 [From Depakote] ketorolac [From Toradol] Allergy Unknown Verified 04/10/23 13:53 Penicillins Allergy Anaphylaxis Verified 04/10/23 13:53 shellfish derived [Shellfish] Allergy Rash/Hives Verified 04/10/23 13:53 strawberry Allergy Rash/Hives Verified 04/10/23 13:53 alcohol AdvReac Vomiting Verified 04/10/23 13:53 aspirin AdvReac Nausea & Verified 04/10/23 13:53 Vomiting erythromycin base AdvReac Dyspnea Verified 04/10/23 13:53 Sulfa (Sulfonamide AdvReac Dyspnea & Verified 04/10/23 13:53 Antibiotics) Nausea/Vomiting tramadol [From Ultram] AdvReac Nausea & Verified 04/10/23 13:53 Vomiting Dial Soap Allergy Unknown Rash/Hives, Uncoded 04/10/23 13:53 itching Physical Exam Vitals: Vital Signs Temp Pulse Resp BP Pulse Ox 04/11/23 10:39 79 18 96 04/11/23 10:11 91 18 110/64 97 04/11/23 08:14 98.6 F 81 18 105/63 96 04/11/23 06:14 75 14 104/71 96 04/11/23 04:41 101 H 16 97/76 97 04/11/23 02:22 72 14 108/63 99 04/11/23 01:05 73 14 97/65 99 04/10/23 23:53 76 14 97/59 99 04/10/23 22:39 78 16 103/74 97 04/10/23 21:18 85 18 111/67 96 04/10/23 19:42 97.9 F 82 16 106/71 99 04/10/23 15:18 83 18 91/60 98 04/10/23 13:44 97.7 F 76 18 110/68 93 L Results - Lab Results Most recent lab results Calcium 6.3 mg/dL (8.4-10.2) L* 04/10/23 14:14 Magnesium 2.9 mg/dL (1.6-2.3) H 04/10/23 14:14 04/11/23 08:33 04/10/23 14:14 Assessment and Plan Plan: Assessment: 1. Acute kidney injury secondary to ATN secondary to acute blood loss anemia. Creatinine 3.06 on admission yesterday. Creatinine 0.8 in August 2022 and as low as 1.07 in September 2022. Kidney ultrasound showed atrophic right kidney. Left kidney not visualized. Computed tomography scan from September 2022 showed no evidence of hydronephrosis. 2. Acute blood loss anemia with hemoglobin of 5.1 today. 3. Metabolic acidosis secondary to acute kidney injury and GI losses maintain on bicarb drip. 4. Hypocalcemia secondary to acute kidney injury. 5. Hypovolemic hyponatremia. Plan: Maintain bicarb drip. IV DDAVP 1 dose today. Scheduled to receive blood transfusion. Hematology and GI consulted. Replace calcium. Avoid nephrotoxins. Continue to monitor renal function and urine output. Decrease dose of gabapentin. Thank you for the consultation. I will continue to follow the patient with you during her hospital stay
--- NOTE | 2023-04-11 12:14 | CT ---
EXAMINATION TYPE: CT abdomen pelvis wo con CT DLP: 377 mGycm, Automated exposure control for dose reduction was used. DATE OF EXAM: 04/11/2023 12:03 PM COMPARISON: CT abdomen pelvis most recent from 10/01/2022 . CLINICAL INDICATION:Female, 67 years old with history of vomiting/ low hgb; Vomiting, low hgb TECHNIQUE: Standard CT of the abdomen and pelvis without IV or oral contrast. Lack of IV or oral co ntrast limits evaluation of solid and hollow organ viscera. Coronal and sagittal reformats were perfo rmed. FINDINGS: LOWER CHEST: Patchy groundglass and consolidative opacities within the bilateral lower lobes and righ t middle lobe trace right pleural effusion. Fluid identified within the distal esophagus. ABDOMEN LIVER: Unremarkable noncontrast appearance. GALLBLADDER AND BILE DUCTS: Unremarkable noncontrast appearance. PANCREAS: Unremarkable noncontrast appearance. SPLEEN: Unremarkable noncontrast appearance. ADRENAL GLANDS: Unremarkable noncontrast appearance.. KIDNEYS AND URETERS: Mild bilateral hydroureteronephrosis without obstructing calculus identified. Th ere is redemonstration of a 4 mm calculus in the proximal right ureter. PELVIS BLADDER: Moderately distended urinary bladder. REPRODUCTIVE: Unremarkable. ABDOMEN & PELVIS STOMACH AND BOWEL: Gastric distention. Large amount of stool is present throughout the colon. Postsur gical changes with surgical clips and anastomosis within the right lower quadrant in the region of th e cecum. Dilated small bowel with air-fluid levels measuring up to 6.0 cm. Transition point appears t o be near the anastomotic site in the anterior upper pelvis. No pneumatosis. PERITONEUM: No evidence of pneumoperitoneum or free fluid. VASCULATURE: Mild atherosclerotic calcifications are present throughout the abdominal aorta and its b ranches. No evidence of aortic aneurysm. MUSCULOSKELETAL: No acute osseous abnormalities. Post fixation changes of the right proximal femur. V ertebral augmentation changes of the L3 and L4 vertebral bodies. Redemonstration of compression fract ure of the T11 vertebral body with approximately 50% height loss centrally.. Postsurgical changes of the sacrum. LYMPH NODES: No gross evidence for lymphadenopathy. SOFT TISSUE/ABDOMINAL WALL: Unremarkable IMPRESSION: 1. Findings most consistent with small bowel obstruction with transition point in the upper central pelvis near anastomotic site. Likely related to adhesions. 2. Moderate to severe colonic stool burden. 3. Moderately distended urinary bladder with bilateral hydroureteronephrosis. Consider Lawson catheter placement. Additional nonobstructive 4 mm calculus within the proximal right ureter again. 4. Patchy groundglass and consolidative opacities within the left lower lobe, right middle lobe and r ight lower lobe consistent with atypical pneumonia.
[2023-04-11 12:17] LABS: Calcium 4.1 mg/dL (8.4-10.2); Chloride 65 mmol/L (98-107); Glucose 1091 mg/dL (74-99); Potassium 2.1 mmol/L (3.5-5.1)
[2023-04-11 12:19] LABS: Carbon Dioxide 46 mmol/L (22-30)
[2023-04-11 13:00] LABS: Glucose,Whole Blood 290 mg/dL (70-110)
[2023-04-11] MEDS ORDERED: DESMOPRESSIN ACETATE IVPB ONE (13:00)
[2023-04-11] MEDS ORDERED: SODIUM CHLORIDE 0.9% IVPB ONE (13:00)
--- NOTE | 2023-04-11 14:20 | P.CONS ---
History of Present Illness - Reason for Consult Consult date: 04/11/23 Anemia Requesting physician: Keyshawn Vaz - Chief Complaint Weakness and falls - History of Present Illness This is a 67-year-old female who was brought in to the emergency department for weakness and falls. Patient is alert and oriented to self only. History is obtained from the chart and nurse. She has a past medical history of red cell aplasia, with chronic anemia and previous transfusions, COPD, CVA/TIA, fibromyalgia, hypertension, multiple sclerosis, gastric/small bowel cancer status post resection and short bowel syndrome with frequent diarrhea. Lissette marie to the emergency room documentation patient had been weak at home and falling, unable to take care of herself. She denies any blood in her stool or black stool. States she's had nausea and vomiting 3 days, no reported hematemesis. On admission she was noted to have a hemoglobin of 7.7 with a drop today to 5.1. Actually her CMP was very altered compared to yesterday. They're doing a redraw at this time. Patient follows with Dr. Lemos for anemia. She was admitted for weakness, acute kidney injury, and anemia. Gastroenterology was consulted for anemia. She is currently receiving 1 unit of blood. Patient is not on any anticoagulation he denies NSAID use. Past EGD done 08/26/[address] Cárdenas has part of workup for anemia and GI bleed with findings of 2 superficial erosions in the distal esophagus consistent with LA grade B reflux esophagitis. No active bleeding noted. She had a prior EGD and colonoscopy done with Dr. Guaman December 2021 at that time EGD showed superficial erosions in the antrum, and colonoscopy was aborted due to poor colon prep. With recommendation to repeat colonoscopy in 2023. Patient also had a CT of the abdomen and pelvis reporting small bowel obstruction with likely adhesions as well as stool burden. Patient currently states she is having abdominal pain, some nausea and vomiting without hematemesis. No rectal bleeding or black stools noted. However patient overall poor historian. Review of Systems REVIEW OF SYSTEMS: CARDIOPULMONARY: No chest pain or shortness of breath. Gastrointestinal: Abdominal pain. Nausea and vomiting 3 days. No hematemesis, coffee-ground emesis. No rectal bleeding, or melena. GENITOURINARY: No dysuria or hematuria. MUSCULOSKELETAL: Reports normal range of motion. SKIN: No rashes. No jaundice. ENDOCRINE: No chills, fevers. No excessive weight gain or loss. No polydipsia or polyuria. PSYCHIATRIC: Unremarkable. NEUROLOGY: No change in mental status. Denies dizziness, headache. ENT: Vision unremarkable. CONSTITUTIONAL: Weakness with falls.. Past Medical History Past Medical History: Cancer, COPD, CVA/TIA, Fibromyalgia, Hypertension Additional Past Medical History / Comment(s): TIA, right hand tendons severed and repaired, closed head injury, multiple sclerosis, short bowel syndrome, pancreatic insufficiency, bowel cancer History of Any Multi-Drug Resistant Organisms: C-DIFF Year Discovered:: 2014 MDRO Source:: patient Past Surgical History: Back Surgery Additional Past Surgical History / Comment(s): stomach cancer, right hemicolectomy and small bowel resection. Back surgery by Past Anesthesia/Blood Transfusion Reactions: No Reported Reaction Additional Past Anesthesia/Blood Transfusion Reaction / Comm: States she thinks her father may have had some problems with anesthesia but is not sure what they were. Past Psychological History: Anxiety, Bipolar, Depression, PTSD Smoking Status: Current every day smoker Past Alcohol Use History: None Reported Past Drug Use History: None Reported - Past Family History Father Family Medical History: No Reported History Additional Family Medical History / Comment(s): . Mother Family Medical History: No Reported History Additional Family Medical History / Comment(s): . Sister(s) Family Medical History: No Reported History Additional Family Medical History / Comment(s): Patient has sisters all have female problems. She does state there is breast cancer history in her aunt. Son(s) Family Medical History: No Reported History Additional Family Medical History / Comment(s): . Brother(s) Family Medical History: Cancer Additional Family Medical History / Comment(s): esophageal cancer Medications and Allergies Home Medications Medication Instructions Recorded Confirmed Type Folic Acid 1 mg PO DAILY 05/24/17 04/10/23 History DULoxetine HCL [Cymbalta] 60 mg PO AC-BRKFST 05/17/21 04/10/23 History Gabapentin [Neurontin] 300 mg PO TID 05/17/21 04/10/23 History Lipase/Protease/Amylase [Zenpep Dr 1 cap PO PC-TID PRN 05/17/21 04/10/23 History 40,000 Unit Capsule] ALPRAZolam [Xanax] 0.25 mg PO BID PRN 08/24/22 04/10/23 History Acetaminophen with Codeine 1 - 2 tab PO Q8H PRN 08/24/22 04/10/23 History [Tylenol #4 Tablet] DULoxetine HCL [Cymbalta] 30 mg PO PC-LUNCH 08/24/22 04/10/23 History methocarbamoL [Robaxin] 500 mg PO TID PRN 08/24/22 04/10/23 History traZODone HCL 150 mg PO PC-LUNCH 08/24/22 04/10/23 History Cyanocobalamin [Vitamin B-12] 1,000 mcg PO DAILY #30 tablet 08/27/22 04/10/23 Rx Calcium Carbonate [Tums] 500 mg PO TID-W/MEALS 03/31/23 04/10/23 History Famotidine 20 mg PO BID 03/31/23 04/10/23 History Loperamide [Imodium] 2 mg PO TID PRN 03/31/23 04/10/23 History Magnesium Oxide [Mag-Ox] 400 mg PO BID 03/31/23 04/10/23 History Ondansetron Odt [Zofran Odt] 4 mg PO Q8HR PRN #20 tab 03/31/23 04/10/23 Rx Pantoprazole [Protonix] 40 mg PO DAILY 14 Days #14 tab 03/31/23 04/10/23 Rx QUEtiapine FUMARATE [SEROquel XR] 300 mg PO HS 03/31/23 04/10/23 History Sodium Bicarbonate Tab 650 mg PO BID 03/31/23 04/10/23 History Albuterol Nebulized [Ventolin 2.5 mg INHALATION RT-QID PRN 04/10/23 04/10/23 History Nebulized] Ergocalciferol (Vitamin D2) 1,250 mcg PO MO 04/10/23 04/10/23 History [Drisdol (50,000 Iu)] Allergies Allergy/AdvReac Type Severity Reaction Status Date / Time divalproex sodium Allergy Unknown Verified 04/10/23 13:53 [From Depakote] ketorolac [From Toradol] Allergy Unknown Verified 04/10/23 13:53 Penicillins Allergy Anaphylaxis Verified 04/10/23 13:53 shellfish derived [Shellfish] Allergy Rash/Hives Verified 04/10/23 13:53 strawberry Allergy Rash/Hives Verified 04/10/23 13:53 alcohol AdvReac Vomiting Verified 04/10/23 13:53 aspirin AdvReac Nausea & Verified 04/10/23 13:53 Vomiting erythromycin base AdvReac Dyspnea Verified 04/10/23 13:53 Sulfa (Sulfonamide AdvReac Dyspnea & Verified 04/10/23 13:53 Antibiotics) Nausea/Vomiting tramadol [From Ultram] AdvReac Nausea & Verified 04/10/23 13:53 Vomiting Dial Soap Allergy Unknown Rash/Hives, Uncoded 04/10/23 13:53 itching Physical Exam Vitals: Vital Signs Temp Pulse Resp BP Pulse Ox 04/11/23 12:45 97.0 F L 79 16 105/68 97 04/11/23 12:33 97.0 F L 76 17 103/66 04/11/23 10:39 79 18 96 04/11/23 10:11 91 18 110/64 97 04/11/23 08:14 98.6 F 81 18 105/63 96 04/11/23 06:14 75 14 104/71 96 04/11/23 04:41 101 H 16 97/76 97 04/11/23 02:22 72 14 108/63 99 04/11/23 01:05 73 14 97/65 99 04/10/23 23:53 76 14 97/59 99 04/10/23 22:39 78 16 103/74 97 04/10/23 21:18 85 18 111/67 96 04/10/23 19:42 97.9 F 82 16 106/71 99 04/10/23 15:18 83 18 91/60 98 04/10/23 13:44 97.7 F 76 18 110/68 93 L Intake and Output 04/10/23 04/11/23 04/11/23 22:59 06:59 14:59 Intake Total 0 Balance 0 Intake: Blood Product 0 Rc As-1 Unit 0 [id number] General appearance: The patient is alert, oriented to self only, appears in no acute distress. HET: Head is normocephalic and atraumatic. Conjunctiva pink. Sclera anicteric. Neck: Supple without lymphadenopathy. Trachea midline. Heart: Regular. Lungs: Equal expansion, normal respiratory effort. Abdomen: Distended, tympanic, tender. Skin: No rashes. No jaundice. Extremities: Normal skin color and turgor. No pedal edema. Neurological: No focal deficits. Alert and oriented to self only. Results CBC & Chem 7: 04/11/23 08:33 04/11/23 11:12 Labs: Abnormal Lab Results - Last 24 Hours (Table) 04/10/23 04/10/23 04/10/23 Range/Units 14:14 14:14 14:14 WBC 13.7 H (3.8-10.6) k/uL RBC 2.24 L (3.80-5.40) m/uL Hgb 7.7 L D (11.4-16.0) gm/dL Hct 23.7 L (34.0-46.0) % MCV 105.6 H (80.0-100.0) fL Neutrophils # 12.9 H (1.3-7.7) k/uL Lymphocytes # 0.4 L (1.0-4.8) k/uL Macrocytosis Sodium 131 L (137-145) mmol/L Potassium (3.5-5.1) mmol/L Chloride 96 L (98-107) mmol/L Carbon Dioxide 10 L (22-30) mmol/L BUN 83 H (7-17) mg/dL Creatinine 3.06 H (0.52-1.04) mg/dL Glucose 107 H (74-99) mg/dL POC Glucose (mg/dL) (70-110) mg/dL Calcium 6.3 L* (8.4-10.2) mg/dL Magnesium 2.9 H (1.6-2.3) mg/dL AST 42 H (14-36) U/L Total Protein 6.2 L (6.3-8.2) g/dL Albumin 3.4 L (3.5-5.0) g/dL Urine Appearance Cloudy H (Clear) Urine Protein 1+ H (Negative) Urine Ketones Trace H (Negative) Urine Blood Small H (Negative) Urine RBC 9 H (0-5) /hpf Urine WBC 6 H (0-5) /hpf Calcium Oxalate Crystal Occasional H (None) /hpf Amorphous Sediment Rare H (None) /hpf Urine Bacteria Rare H (None) /hpf Urine Mucus Rare H (None) /hpf Crossmatch 04/11/23 04/11/23 04/11/23 Range/Units 08:33 11:08 11:12 WBC (3.8-10.6) k/uL RBC 1.47 L (3.80-5.40) m/uL Hgb 5.1 L* D (11.4-16.0) gm/dL Hct 16.2 L* (34.0-46.0) % MCV 109.8 H (80.0-100.0) fL Neutrophils # (1.3-7.7) k/uL Lymphocytes # (1.0-4.8) k/uL Macrocytosis Marked A Sodium 123 L (137-145) mmol/L Potassium 2.1 L* (3.5-5.1) mmol/L Chloride 65 L* (98-107) mmol/L Carbon Dioxide 46 H* (22-30) mmol/L BUN 73 H (7-17) mg/dL Creatinine 1.33 H (0.52-1.04) mg/dL Glucose 1091 H* (74-99) mg/dL POC Glucose (mg/dL) (70-110) mg/dL Calcium 4.1 L* (8.4-10.2) mg/dL Magnesium (1.6-2.3) mg/dL AST (14-36) U/L Total Protein 3.7 L (6.3-8.2) g/dL Albumin 2.1 L (3.5-5.0) g/dL Urine Appearance (Clear) Urine Protein (Negative) Urine Ketones (Negative) Urine Blood (Negative) Urine RBC (0-5) /hpf Urine WBC (0-5) /hpf Calcium Oxalate Crystal (None) /hpf Amorphous Sediment (None) /hpf Urine Bacteria (None) /hpf Urine Mucus (None) /hpf Crossmatch See Detail 04/11/23 Range/Units 12:57 WBC (3.8-10.6) k/uL RBC (3.80-5.40) m/uL Hgb (11.4-16.0) gm/dL Hct (34.0-46.0) % MCV (80.0-100.0) fL Neutrophils # (1.3-7.7) k/uL Lymphocytes # (1.0-4.8) k/uL Macrocytosis Sodium (137-145) mmol/L Potassium (3.5-5.1) mmol/L Chloride (98-107) mmol/L Carbon Dioxide (22-30) mmol/L BUN (7-17) mg/dL Creatinine (0.52-1.04) mg/dL Glucose (74-99) mg/dL POC Glucose (mg/dL) 290 H (70-110) mg/dL Calcium (8.4-10.2) mg/dL Magnesium (1.6-2.3) mg/dL AST (14-36) U/L Total Protein (6.3-8.2) g/dL Albumin (3.5-5.0) g/dL Urine Appearance (Clear) Urine Protein (Negative) Urine Ketones (Negative) Urine Blood (Negative) Urine RBC (0-5) /hpf Urine WBC (0-5) /hpf Calcium Oxalate Crystal (None) /hpf Amorphous Sediment (None) /hpf Urine Bacteria (None) /hpf Urine Mucus (None) /hpf Crossmatch Comments: CT abdomen and pelvis without contrast reports findings most consistent with small bowel obstruction with transition point in the upper central pelvis near the anastomotic site. Likely related to adhesions. [id number] colonic stool burden. Moderately distended urinary bladder with bilateral hydro- ureteronephrosis. Consider Lawson catheter placement. Additional nonobstructive 4 mm calculus within the proximal right ureter again. Patchy groundglass and consolidative opacities within the left lower lobe, right middle lobe and right lower lobe consistent with atypical pneumonia. Ultrasound kidneys/renal and plantar reports limited by extensive fluid distended and per staff saying bowel loops. Correlate for possibility of underlying ileus or bowel obstruction. Unable to visualize the left kidney due to patient condition. Unable to exclude early right-sided hydronephrosis. CT lumbar spine without contrast reports chronic compression deformities with post vertebroplasty changes L3 and L4. Posterior superior wall displacement contributing to some thecal sac compression and canal narrowing appears stable from comparison. No acute osseous changes evident. CT scan - abdomen: report reviewed ( reports) Assessment and Plan (1) Anemia Narrative/Plan: 67-year-old female with multiple comorbidities presenting for weakness and falls presenting with chronic anemia with hemoglobin of 7.7 with a trapped date of 5.1 with no evidence of GI blood loss. She's been worked up in the past for anemia and GI bleed with most recent EGD being in August of this year with findings of LA grade B reflux esophagitis. Anemia likely multifactorial patient has reported red cell aplasia and sees Dr. Lemos for chronic anemia. She's needed blood transfusions in the past. Patient is not having any falguni blood per rectum, black stool, or hematemesis. Certainly cannot rule out possibility of GI bleed however no signs of GI blood loss at this time. Will hold off at this time on any endoscopic evaluation, allow for workup for small bowel obstruction and input from hematology. Also await repeat labs. Current Visit: No Status: Chronic Code(s): D64.9 - ANEMIA, UNSPECIFIED SNOMED Code(s): 375896509 (2) Weakness Current Visit: Yes Status: Acute Code(s): R53.1 - WEAKNESS SNOMED Code(s): 81845458 (3) ALICIA (acute kidney injury) Current Visit: No Status: Acute Code(s): N17.9 - ACUTE KIDNEY FAILURE, UNSPECIFIED SNOMED Code(s): 00097787 (4) Abdominal pain Current Visit: No Status: Acute Code(s): R10.9 - UNSPECIFIED ABDOMINAL PAIN SNOMED Code(s): 38420340 (5) Altered mental status Current Visit: No Status: Acute Code(s): R41.82 - ALTERED MENTAL STATUS, UNSPECIFIED SNOMED Code(s): 874508309 (6) Bowel obstruction Narrative/Plan: Patient complaining of abdominal pain CT abdomen and pelvis concerning for small bowel obstruction from possible adhesions and moderate to severe stool burden. Current Visit: No Status: Acute Code(s): K56.609 - UNSP INTESTNL OBST, UNSP TO PARTIAL VERSUS COMPLETE OBST SNOMED Code(s): 32903168 (7) Short bowel syndrome Current Visit: No Status: Chronic Code(s): K91.2 - POSTSURGICAL MALABSORPTION, NOT ELSEWHERE CLASSIFIED SNOMED Code(s): 86068077 Plan: 1. Continue symptomatic and supportive care 2. Keep nothing by mouth 3. Agree with blood transfusion 4. Daily CBC transfuse for hemoglobin less than 7 5. Consult to Gen. surgery for small bowel obstruction 6. Avoid NSAIDs 7. Replace electrolytes per protocol 8. Await recommendations from hematology 9. No plans on endoscopic evaluation at this time. We will continue to monitor for signs of GI blood loss. Thank you for this consultation, we will continue to follow. Dr. Christopher Lopes I agree with the dictator's note, documented as a scribe by Kristin Cueto.
[2023-04-11 15:26] LABS: Glucose,Whole Blood 173 mg/dL (70-110)
[2023-04-11 15:49] LABS: ALT 17 U/L (4-34); AST 39 U/L (14-36); African American GFR (CKD) 28 (>60 ml/min/1.73 sqM); Albumin 3.5 g/dL (3.5-5.0); Albumin/Globulin Ratio 1.3; Alkaline Phosphatase 104 U/L (38-126); Anion Gap 24 mmol/L; Blood Urea Nitrogen 85 mg/dL (7-17); Calcium 6.8 mg/dL (8.4-10.2); Carbon Dioxide 20 mmol/L (22-30); Chloride 89 mmol/L (98-107); Globulin 2.6 g/dL; Glucose 177 mg/dL (74-99); Non-African American GFR(CKD) 24 (>60 ml/min/1.73 sqM); Phosphorus 4.8 mg/dL (2.5-4.5); Sodium 133 mmol/L (137-145); Total Bilirubin 0.6 mg/dL (0.2-1.3); Total Protein 6.1 g/dL (6.3-8.2)
--- NOTE | 2023-04-11 15:50 | P.GSCN ---
History of Present Illness Consult date: 04/11/23 History of present illness: CHIEF COMPLAINT: Weakness and fall HISTORY OF PRESENT ILLNESS: This is a 67-year-old female who came into the emergency room with weakness and falls. She is confused. Most of patient's history was obtained from patient chart. Patient does report that she has been having abdominal pain mostly on the right side. She has been vomiting. She had a computed tomography scan abdomen and pelvis that had shown findings consistent with small bowel obstruction with transition point in the upper central pelvis near the anastomotic site likely related to adhesions. Moderate to severe colonic stool burden. Patient does have a known history of bowel cancer status post right hemicolectomy and small bowel resection. Patient is anemic. Hemog lobin 7.7 on admission has dropped to 5.1. She will be receiving 2 units of blood. No reports of active bleeding. She has electrolyte abnormalities. Patient has been slightly hypotensive. Patient admitted to the ICU. PAST MEDICAL HISTORY: Chronic anemia and Red cell aplasia, Cancer, COPD, TIA, Fibromyalgia, Hypertension, closed head injury, multiple sclerosis, short bowel syndrome, pancreatic insufficiency, bowel cancer PAST SURGICAL HISTORY: right hemicolectomy and small bowel resection. MEDICATIONS: See below ALLERGIES: See below SOCIAL HISTORY: No illicit drug use. REVIEW OF SYSTEMS: CONSTITUTIONAL: Denies fever or chills. HEENT: Denies blurred vision, vision changes, or eye pain. Denies hemoptysis CARDIOVASCULAR: Denies chest pain or pressure. RESPIRATORY: No shortness of breath. GASTROINTESTINAL: See HPI for pertinent findings HEMATOLOGIC: Denies bleeding disorders. GENITOURINARY: Denies any blood in urine or increased urinary frequency. SKIN: Denies pruitis. Denies rash. PHYSICAL EXAM: VITAL SIGNS: Reviewed GENERAL: Well-developed in no acute distress. ABDOMEN: Distended. Firm. Tenderness to palpation of the right side of the abdomen. NEUROLOGIC: Awake. Confused. LABORATORY DATA: WBC 13.7 down to 7.6 Hgb 7.7 down to 5.1 Sodium 123 potassium 2.1 chloride 65 CO2 46 creatinine 1.33 glucose 1091 Magnesium 2.8 IMAGING: Computed tomography scan abdomen and pelvis reports findings most consistent with small bowel obstruction with transition point in the upper central pelvis near anastomotic site. Likely related to adhesions. Moderate to severe colonic stool burden. Moderately distended urinary bladder with bilateral hydroureteronephrosis. Consider Lawson catheter placement. Additionally nonobstructive 4 mm calculus within the proximal right ureter. Patchy groundglass and consolidative opacities within the left lower lobe. Right m iddle lobe and right lower lobe consistent with atypical pneumonia. ASSESSMENT: 1. Small bowel obstruction near anastomotic site likely secondary to adhesions 2. Anemia 3. Electrolyte abnormalities 4. History of bowel cancer status post right hemicolectomy and small bowel resection PLAN: -Recommend Exploratory laparotomy when medically stable -Keep patient nothing by mouth -Place NG tube for decompression -Correct electrolyte abnormalities -Agree with blood transfusion for anemia -Continue ICU management -Continue supportive care -Continue IV fluids Thank you for this consultation Physician Band Nailer note has been reviewed by physician. Signing provider agrees with the documented findings, assessment, and plan of care. Past Medical History Past Medical History: Cancer, COPD, CVA/TIA, Fibromyalgia, Hypertension Additional Past Medical History / Comment(s): TIA, right hand tendons severed and repaired, closed head injury, multiple sclerosis, short bowel syndrome, pancreatic insufficiency, bowel cancer History of Any Multi-Drug Resistant Organisms: C-DIFF Year Discovered:: 2014 MDRO Source:: patient Past Surgical History: Back Surgery Additional Past Surgical History / Comment(s): stomach cancer, right hemicolectomy and small bowel resection. Back surgery by Past Anesthesia/Blood Transfusion Reactions: No Reported Reaction Additional Past Anesthesia/Blood Transfusion Reaction / Comm: States she thinks her father may have had some problems with anesthesia but is not sure what they were. Past Psychological History: Anxiety, Bipolar, Depression, PTSD Smoking Status: Current every day smoker Past Alcohol Use History: None Reported Past Drug Use History: None Reported - Past Family History Father Family Medical History: No Reported History Additional Family Medical History / Comment(s): . Mother Family Medical History: No Reported History Additional Family Medical History / Comment(s): . Sister(s) Family Medical History: No Reported History Additional Family Medical History / Comment(s): Patient has sisters all have fe male problems. She does state there is breast cancer history in her aunt. Son(s) Family Medical History: No Reported History Additional Family Medical History / Comment(s): . Brother(s) Family Medical History: Cancer Additional Family Medical History / Comment(s): esophageal cancer Medications and Allergies Home Medications Medication Instructions Recorded Confirmed Type Folic Acid 1 mg PO DAILY 05/24/17 04/10/23 History DULoxetine HCL [Cymbalta] 60 mg PO AC-BRKFST 05/17/21 04/10/23 History Gabapentin [Neurontin] 300 mg PO TID 05/17/21 04/10/23 History Lipase/Protease/Amylase [Zenpep Dr 1 cap PO PC-TID PRN 05/17/21 04/10/23 History 40,000 Unit Capsule] ALPRAZolam [Xanax] 0.25 mg PO BID PRN 08/24/22 04/10/23 History Acetaminophen with Codeine 1 - 2 tab PO Q8H PRN 08/24/22 04/10/23 History [Tylenol #4 Tablet] DULoxetine HCL [Cymbalta] 30 mg PO PC-LUNCH 08/24/22 04/10/23 History methocarbamoL [Robaxin] 500 mg PO TID PRN 08/24/22 04/10/23 History traZODone HCL 150 mg PO PC-LUNCH 08/24/22 04/10/23 History Cyanocobalamin [Vitamin B-12] 1,000 mcg PO DAILY #30 tablet 08/27/22 04/10/23 Rx Calcium Carbonate [Tums] 500 mg PO TID-W/MEALS 03/31/23 04/10/23 History Famotidine 20 mg PO BID 03/31/23 04/10/23 History Loperamide [Imodium] 2 mg PO TID PRN 03/31/23 04/10/23 History Magnesium Oxide [Mag-Ox] 400 mg PO BID 03/31/23 04/10/23 History Ondansetron Odt [Zofran Odt] 4 mg PO Q8HR PRN #20 tab 03/31/23 04/10/23 Rx Pantoprazole [Protonix] 40 mg PO DAILY 14 Days #14 tab 03/31/23 04/10/23 Rx QUEtiapine FUMARATE [SEROquel XR] 300 mg PO HS 03/31/23 04/10/23 History Sodium Bicarbonate Tab 650 mg PO BID 03/31/23 04/10/23 History Albuterol Nebulized [Ventolin 2.5 mg INHALATION RT-QID PRN 04/10/23 04/10/23 History Nebulized] Ergocalciferol (Vitamin D2) 1,250 mcg PO MO 04/10/23 04/10/23 History [Drisdol (50,000 Iu)] Allergies Allergy/AdvReac Type Severity Reaction Status Date / Time divalproex sodium Allergy Unknown Verified 04/10/23 13:53 [From Depakote] ketorolac [From Toradol] Allergy Unknown Verified 04/10/23 13:53 Penicillins Allergy Anaphylaxis Verified 04/10/23 13:53 shellfish derived [Shellfish] Allergy Rash/Hives Verified 04/10/23 13:53 strawberry Allergy Rash/Hives Verified 04/10/23 13:53 alcohol AdvReac Vomiting Verified 04/10/23 13:53 aspirin AdvReac Nausea & Verified 04/10/23 13:53 Vomiting erythromycin base AdvReac Dyspnea Verified 04/10/23 13:53 Sulfa (Sulfonamide AdvReac Dyspnea & Verified 04/10/23 13:53 Antibiotics) Nausea/Vomiting tramadol [From Ultram] AdvReac Nausea & Verified 04/10/23 13:53 Vomiting Dial Soap Allergy Unknown Rash/Hives, Uncoded 04/10/23 13:53 itching Surgical - Exam Vital Signs Temp Pulse Resp BP Pulse Ox 97.7 F 76 18 110/68 93 L 04/10/23 13:44 04/10/23 13:44 04/10/23 13:44 04/10/23 13:44 04/10/23 13:44 Results - Labs 04/12/23 03:09 04/12/23 03:09 Abnormal Lab Results - Last 24 Hours (Table) 04/11/23 04/11/23 04/11/23 Range/Units 08:33 11:08 11:12 RBC 1.47 L (3.80-5.40) m/uL Hgb 5.1 L* D (11.4-16.0) gm/dL Hct 16.2 L* (34.0-46.0) % MCV 109.8 H (80.0-100.0) fL Lymphocytes # 0.2 L (1.0-4.8) k/uL Macrocytosis Marked A Sodium 123 L (137-145) mmol/L Potassium 2.1 L* (3.5-5.1) mmol/L Chloride 65 L* (98-107) mmol/L Carbon Dioxide 46 H* (22-30) mmol/L BUN 73 H (7-17) mg/dL Creatinine 1.33 H (0.52-1.04) mg/dL Glucose 1091 H* (74-99) mg/dL POC Glucose (mg/dL) (70-110) mg/dL Calcium 4.1 L* (8.4-10.2) mg/dL Magnesium (1.6-2.3) mg/dL Total Protein 3.7 L (6.3-8.2) g/dL Albumin 2.1 L (3.5-5.0) g/dL Crossmatch See Detail 04/11/23 04/11/23 04/11/23 Range/Units 12:57 13:06 15:24 RBC (3.80-5.40) m/uL Hgb (11.4-16.0) gm/dL Hct (34.0-46.0) % MCV (80.0-100.0) fL Lymphocytes # (1.0-4.8) k/uL Macrocytosis Sodium (137-145) mmol/L Potassium (3.5-5.1) mmol/L Chloride (98-107) mmol/L Carbon Dioxide (22-30) mmol/L BUN (7-17) mg/dL Creatinine (0.52-1.04) mg/dL Glucose (74-99) mg/dL POC Glucose (mg/dL) 290 H 173 H (70-110) mg/dL Calcium (8.4-10.2) mg/dL Magnesium 2.8 H (1.6-2.3) mg/dL Total Protein (6.3-8.2) g/dL Albumin (3.5-5.0) g/dL Crossmatch Diabetes panel 04/11/23 Range/Units 11:12 Sodium 123 L (137-145) mmol/L Potassium 2.1 L* (3.5-5.1) mmol/L Chloride 65 L* (98-107) mmol/L Carbon Dioxide 46 H* (22-30) mmol/L BUN 73 H (7-17) mg/dL Creatinine 1.33 H (0.52-1.04) mg/dL Glucose 1091 H* (74-99) mg/dL Calcium 4.1 L* (8.4-10.2) mg/dL AST 26 (14-36) U/L ALT 12 (4-34) U/L Alkaline Phosphatase 59 (38-126) U/L Total Protein 3.7 L (6.3-8.2) g/dL Albumin 2.1 L (3.5-5.0) g/dL Calcium panel 04/11/23 Range/Units 11:12 Calcium 4.1 L* (8.4-10.2) mg/dL Albumin 2.1 L (3.5-5.0) g/dL Pituitary panel 04/11/23 Range/Units 11:12 Sodium 123 L (137-145) mmol/L Potassium 2.1 L* (3.5-5.1) mmol/L Chloride 65 L* (98-107) mmol/L Carbon Dioxide 46 H* (22-30) mmol/L BUN 73 H (7-17) mg/dL Creatinine 1.33 H (0.52-1.04) mg/dL Glucose 1091 H* (74-99) mg/dL Calcium 4.1 L* (8.4-10.2) mg/dL Adrenal panel 04/11/23 Range/Units 11:12 Sodium 123 L (137-145) mmol/L Potassium 2.1 L* (3.5-5.1) mmol/L Chloride 65 L* (98-107) mmol/L Carbon Dioxide 46 H* (22-30) mmol/L BUN 73 H (7-17) mg/dL Creatinine 1.33 H (0.52-1.04) mg/dL Glucose 1091 H* (74-99) mg/dL Calcium 4.1 L* (8.4-10.2) mg/dL Total Bilirubin 0.5 (0.2-1.3) mg/dL AST 26 (14-36) U/L ALT 12 (4-34) U/L Alkaline Phosphatase 59 (38-126) U/L Total Protein 3.7 L (6.3-8.2) g/dL Albumin 2.1 L (3.5-5.0) g/dL Assessment and Plan Plan: The patient was seen by myself at 1700 hrs. Patient has a tender distended abdomen. Her clinical signs suggestive small bowel obstruction. Her computed tomography scan findings suggestive of small bowel obstruction. Patient will have nasogastric tube decompression placed. Patient is being fluid resuscitated by the blending operator. A arterial line and central line in place. She will need to have her potassium normalized prior to surgery.
[2023-04-11 15:53] LABS: Potassium 2.5 mmol/L (3.5-5.1)
[2023-04-11] MEDS ORDERED: Potassium Replacement Protocol 1 EACH MISC MISCELLANE PRN (15:56)
[2023-04-11] MEDS: POTASSIUM CHLORIDE 10 MEQ in WATER FOR INJECTION 1 100ML.BAG IVPB SCH ×2 (17:14→19:47)
--- NOTE | 2023-04-11 17:14 | P.CONS ---
History of Present Illness - Reason for Consult Consult date: 04/11/23 History of red cell aplasia Requesting physician: Damir Baez - Chief Complaint Weakness - History of Present Illness Mister any is a pleasant 67-year-old female patient of Dr. Lemos initially seen in consult [facility] [place] 06/07/17. Patient has a history of multiple small bowel obstructions treated with medical management and multiple resections. She reports short bowel syndrome as a result of multiple surgeries, chronic diarrhea. Long-standing history of anemia requiring intermittent blood transfusions. She took oral iron prior to being seen by hematology, 2016 she dash d a B12 deficiency and was receiving parenteral B12 through PCP. Upper and lower endoscopy 2016 showed gastritis and duodenitis otherwise negative. She has a history of a benign pancreatic head tumor. Patient also has a history of overdose on opioids. Patient's anemia was felt to be due to malnutrition and absorption issues. Chantix dense of anemia workup showed iron deficiency, SPEP showed asymmetrical gamma, no definite monoclonal protein that can be quantified, light chains were normal. She was seen in the office June 2017, all other workup was normal. Hemoglobin dropped to 8.5 after being normal in December 2017, repeat workup was negative. She was admitted to [facility] 02/27/18, crea tinine increased to 2.7 hemoglobin 7.1, lower extremity ulcers. 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 Her hemoglobin was 12.59/. Likely diagnosis in early MDS and chronic kidney disease, intermittent acute illnesses worsening anemia. She was seen at [facility] and had MRCP in early 2018, evidence of chronic pancreatitis, no obvious mass, possible mild distal CBD stricture. She was started on SERA 09/2018. Her hemoglobin improved almost immediately. She was changed to every 3 week dosing 10/2018 due to good hemoglobin levels, unfortunately patient's ability to get to and from appointments and keeping appointments was poor. She ended up being on every other week dosing for quite some time, missed quite a few appts and SERA injections. Her Hemoglobin after receiving iron and SERA around February 2020 was greater than 11 so she did not need any SERA injections for a while. She was a no show for 4 visits, last retacrit 1/29/21. Patient is currently admitted for weakness and multiple falls At home. She does not have any assistance at home, she is confused and not able to relay much of her history. Review of Systems ROS unobtainable: due to mental status Past Medical History Past Medical History: Cancer, COPD, CVA/TIA, Fibromyalgia, Hypertension Additional Past Medical History / Comment(s): TIA, right hand tendons severed and repaired, closed head injury, multiple sclerosis, short bowel syndrome, pancreatic insufficiency, bowel cancer History of Any Multi-Drug Resistant Organisms: C-DIFF Year Discovered:: 2014 MDRO Source:: patient Past Surgical History: Back Surgery Additional Past Surgical History / Comment(s): stomach cancer, right hemicolectomy and small bowel resection. Back surgery by Past Anesthesia/Blood Transfusion Reactions: No Reported Reaction Additional Past Anesthesia/Blood Transfusion Reaction / Comm: States she thinks her father may have had some problems with anesthesia but is not sure what they were. Past Psychological History: Anxiety, Bipolar, Depression, PTSD Smoking Status: Current every day smoker Past Alcohol Use History: None Reported Past Drug Use History: None Reported - Past Family History Father Family Medical History: No Reported History Additional Family Medical History / Comment(s): . Mother Family Medical History: No Reported History Additional Family Medical History / Comment(s): . Sister(s) Family Medical History: No Reported History Additional Family Medical History / Comment(s): Patient has sisters all have female problems. She does state there is breast cancer history in her aunt. Son(s) Family Medical History: No Reported History Additional Family Medical History / Comment(s): . Brother(s) Family Medical History: Cancer Additional Family Medical History / Comment(s): esophageal cancer Medications and Allergies Home Medications Medication Instructions Recorded Confirmed Type Folic Acid 1 mg PO DAILY 05/24/17 04/10/23 History DULoxetine HCL [Cymbalta] 60 mg PO AC-BRKFST 05/17/21 04/10/23 History Gabapentin [Neurontin] 300 mg PO TID 05/17/21 04/10/23 History Lipase/Protease/Amylase [Zenpep Dr 1 cap PO PC-TID PRN 05/17/21 04/10/23 History 40,000 Unit Capsule] ALPRAZolam [Xanax] 0.25 mg PO BID PRN 08/24/22 04/10/23 History Acetaminophen with Codeine 1 - 2 tab PO Q8H PRN 08/24/22 04/10/23 History [Tylenol #4 Tablet] DULoxetine HCL [Cymbalta] 30 mg PO PC-LUNCH 08/24/22 04/10/23 History methocarbamoL [Robaxin] 500 mg PO TID PRN 08/24/22 04/10/23 History traZODone HCL 150 mg PO PC-LUNCH 08/24/22 04/10/23 History Cyanocobalamin [Vitamin B-12] 1,000 mcg PO DAILY #30 tablet 08/27/22 04/10/23 Rx Calcium Carbonate [Tums] 500 mg PO TID-W/MEALS 03/31/23 04/10/23 History Famotidine 20 mg PO BID 03/31/23 04/10/23 History Loperamide [Imodium] 2 mg PO TID PRN 03/31/23 04/10/23 History Magnesium Oxide [Mag-Ox] 400 mg PO BID 03/31/23 04/10/23 History Ondansetron Odt [Zofran Odt] 4 mg PO Q8HR PRN #20 tab 03/31/23 04/10/23 Rx Pantoprazole [Protonix] 40 mg PO DAILY 14 Days #14 tab 03/31/23 04/10/23 Rx QUEtiapine FUMARATE [SEROquel XR] 300 mg PO HS 03/31/23 04/10/23 History Sodium Bicarbonate Tab 650 mg PO BID 03/31/23 04/10/23 History Albuterol Nebulized [Ventolin 2.5 mg INHALATION RT-QID PRN 04/10/23 04/10/23 History Nebulized] Ergocalciferol (Vitamin D2) 1,250 mcg PO MO 04/10/23 04/10/23 History [Drisdol (50,000 Iu)] Allergies Allergy/AdvReac Type Severity Reaction Status Date / Time divalproex sodium Allergy Unknown Verified 04/10/23 13:53 [From Depakote] ketorolac [From Toradol] Allergy Unknown Verified 04/10/23 13:53 Penicillins Allergy Anaphylaxis Verified 04/10/23 13:53 shellfish derived [Shellfish] Allergy Rash/Hives Verified 04/10/23 13:53 strawberry Allergy Rash/Hives Verified 04/10/23 13:53 alcohol AdvReac Vomiting Verified 04/10/23 13:53 aspirin AdvReac Nausea & Verified 04/10/23 13:53 Vomiting erythromycin base AdvReac Dyspnea Verified 04/10/23 13:53 Sulfa (Sulfonamide AdvReac Dyspnea & Verified 04/10/23 13:53 Antibiotics) Nausea/Vomiting tramadol [From Ultram] AdvReac Nausea & Verified 04/10/23 13:53 Vomiting Dial Soap Allergy Unknown Rash/Hives, Uncoded 04/10/23 13:53 itching Physical Exam Vitals: Vital Signs Temp Pulse Resp BP Pulse Ox 04/11/23 08:14 98.6 F 81 18 105/63 96 04/11/23 06:14 75 14 104/71 96 04/11/23 04:41 101 H 16 97/76 97 04/11/23 02:22 72 14 108/63 99 04/11/23 01:05 73 14 97/65 99 04/10/23 23:53 76 14 97/59 99 04/10/23 22:39 78 16 103/74 97 04/10/23 21:18 85 18 111/67 96 04/10/23 19:42 97.9 F 82 16 106/71 99 04/10/23 15:18 83 18 91/60 98 04/10/23 13:44 97.7 F 76 18 110/68 93 L - Constitutional mild agitation General appearance: no acute distress, thin - EENT Dry mouth Eyes: anicteric sclerae, EOMI ENT: hearing grossly normal - Neck Neck: no lymphadenopathy - Respiratory Respiratory: bilateral: diminished - Cardiovascular Rhythm: regular Heart sounds: normal: S1, S2 Abnormal Heart Sounds: no systolic murmur, no diastolic murmur, no rub, no S3 Gallop, no S4 Gallop, no click, no other leg Peripheral Edema: bilateral: None - Gastrointestinal Slightly distended abdomen, firm to the touch, irregular subcutaneous tissue on palpation, hypoactive bowel sounds General gastrointestinal: soft - Integumentary Integumentary: pale - Neurologic Neurologic: CNII-XII intact (Grossly) - Musculoskeletal Musculoskeletal: generalized weakness - Psychiatric Alert, patient oriented to place and self, not to time, unable to recall recent events, some of the discussion was confusing Results CBC & Chem 7: 10/17/23 08:33 04/11/23 13:10 Labs: Abnormal Lab Results - Last 24 Hours (Table) 04/10/23 04/10/23 04/10/23 Range/Units 14:14 14:14 14:14 WBC 13.7 H (3.8-10.6) k/uL RBC 2.24 L (3.80-5.40) m/uL Hgb 7.7 L D (11.4-16.0) gm/dL Hct 23.7 L (34.0-46.0) % MCV 105.6 H (80.0-100.0) fL Neutrophils # 12.9 H (1.3-7.7) k/uL Lymphocytes # 0.4 L (1.0-4.8) k/uL Sodium 131 L (137-145) mmol/L Chloride 96 L (98-107) mmol/L Carbon Dioxide 10 L (22-30) mmol/L BUN 83 H (7-17) mg/dL Creatinine 3.06 H (0.52-1.04) mg/dL Glucose 107 H (74-99) mg/dL Calcium 6.3 L* (8.4-10.2) mg/dL Magnesium 2.9 H (1.6-2.3) mg/dL AST 42 H (14-36) U/L Total Protein 6.2 L (6.3-8.2) g/dL Albumin 3.4 L (3.5-5.0) g/dL Urine Appearance Cloudy H (Clear) Urine Protein 1+ H (Negative) Urine Ketones Trace H (Negative) Urine Blood Small H (Negative) Urine RBC 9 H (0-5) /hpf Urine WBC 6 H (0-5) /hpf Calcium Oxalate Crystal Occasional H (None) /hpf Amorphous Sediment Rare H (None) /hpf Urine Bacteria Rare H (None) /hpf Urine Mucus Rare H (None) /hpf CT scan - abdomen: report reviewed CT Scan - head: report reviewed CT scan - pelvis: report reviewed Assessment and Plan (1) Red cell aplasia Current Visit: Yes Status: Chronic Priority: Medium Code(s): D60.9 - ACQUIRED PURE RED CELL APLASIA, UNSPECIFIED SNOMED Code(s): 11551352 Plan: Anemia 2/2 Red cell aplasia, CKD, malnutrition -Anemia multifactorial as above -SERA use and parenteral iron in the past have kept pt Hgb in safe range. Unfortunately she is not able to keep appts regularly. Last received a dose of retacrit 07/24/20 for hemoglobin of 9.8. -Iron studies and ferritin, B12, folic acid and copper levels ordered. -As long as iron saturation is adequate SERA can be resumed Possible small bowel obstruction, Hx of the same, multiple times-GI and Arnaud consulted Chronic kidney disease-Nephrology consulted Attests: I have seen and examined pt, performed H&P, developed impression and plan of care. Discussed with dictator. Agree with documentation, dictated as a scribe.
[2023-04-11] MEDS: GABAPENTIN 100 MG CAP PO SCH ×2 (17:15→20:43)
[2023-04-11] MEDS ORDERED: POTASSIUM CHLORIDE 20 MEQ in WATER FOR INJECTION 1 100ML.BAG IVPB ONE ×2 (17:49→18:15)
[2023-04-11] MEDS ORDERED: SODIUM BICARB 8.4% 50 ML SYR (1 MEQ/ML) IV STA ×2 (17:50→17:51)
[2023-04-11] MEDS: SODIUM CHLORIDE 0.9% 1,000 ML IV SCH (18:05)
[2023-04-11 19:00] LABS: Reticulocyte % 0.9 % (0.5-2.0)
[2023-04-11] MEDS ORDERED: POTASSIUM CHLORIDE 20 MEQ in WATER FOR INJECTION 1 100ML.BAG IVPB STA (19:29)
[2023-04-11] MEDS ORDERED: POTASSIUM CHLORIDE 10 MEQ in WATER FOR INJECTION 1 100ML.BAG IVPB STA (19:48)
[2023-04-11] MEDS ORDERED: PANTOPRAZOLE 40 MG/10 ML VIAL IVP SCH (20:00)
[2023-04-11 21:01] LABS: Glucose,Whole Blood 112 mg/dL (70-110)
--- NOTE | 2023-04-11 21:01 | PCN ---
PROCEDURE NOTE PROCEDURE PERFORMED: Right femoral triple-lumen catheter. PREOPERATIVE DIAGNOSES: 1. Administration of fluids and pressors. 2. Hypotension. POSTOPERATIVE DIAGNOSES: 1. Administration of fluids and pressors. 2. Hypotension. OPERATORS: 1. Dr. Guadarrama. 2. Dr. Victor. There were informed consent and universal time-out. TRIPLE LUMEN CATHETER PLACEMENT: INDICATIONS: Administration of fluids and pressors and hypotension. A time-out was completed verifying correct patient, procedure, site, positioning, and implant(s) or special equipment if applicable. The patient was placed in a dependent position appropriate for triple lumen catheter placement based on the vein to be cannulated. The patient's right groin was prepped and draped in sterile fashion. 1% lidocaine was used to anesthetize the surrounding skin area. A triple-lumen 9F Cordis catheter was introduced into the common femoral vein using Seldinger technique. The catheter was threaded smoothly over the guide wire and appropriate blood return was obtained. Each lumen of the catheter was evacuated of air and flushed with sterile saline. The catheter was then sutured in place to the skin and a sterile dressing applied. Perfusion to the extremity distal to the point of catheter insertion was checked and found to be adequate. There was no immediate complication. There was good blood return from all 3 ports. The patient tolerated the procedure well. MMODL / IJN: [id number] /
--- NOTE | 2023-04-11 21:01 | PCN ---
PROCEDURE NOTE PROCEDURE PERFORMED: Right brachial art line. PREOPERATIVE DIAGNOSES: 1. Administration of fluids. 2. Frequent blood draws and blood gas monitoring. 3. Hypotension. POSTOPERATIVE DIAGNOSES: 1. Administration of fluids. 2. Frequent blood draws and blood gas monitoring. 3. Hypotension. OPERATORS: 1. Dr. Guadarrama. 2. Dr. Victor. There were informed consent and universal time-out. ARTERIAL LINE PLACEMENT: INDICATIONS: Administration of fluids, frequent blood draws and blood gas monitoring, and hypotension. A time-out was completed verifying correct patient, procedure, site, positioning, and implant(s) or special equipment if applicable. Derrick's test was performed to ensure adequate perfusion. The patient's right hand was prepped and draped in sterile fashion. 1% lidocaine was used to anesthetize the area. An 18G Arrow arterial line was introduced into the brachial artery. The catheter was threaded over the guidewire, and the needle was removed with appropriate pulsatile blood return. Blood loss was minimal. The catheter was then sutured in place to the skin, and a sterile dressing was applied by the nurse. Perfusion to the extremity distal to the point of catheter insertion was checked and found to be adequate. There were good waveform and blood pressure reading. The patient tolerated the procedure well. There were no immediate complications. MMODL / IJN: [id number] /
[2023-04-11 21:02] LABS: MCH 33.4 pg (25.0-35.0); MCHC 34.9 g/dL (31.0-37.0); Mean Platelet Volume 7.6; Platelet Count 159 k/uL (150-450); RBC 3.77 m/uL (3.80-5.40); WBC 10.7 k/uL (3.8-10.6)
[2023-04-11] MEDS: POTASSIUM CHLORIDE 20 MEQ in WATER FOR INJECTION 1 100ML.BAG IVPB SCH ×2 (21:08→23:11)
[2023-04-11 21:12] LABS: HGB 12.6 gm/dL (11.4-16.0); MCV 95.5 fL (80.0-100.0)
[2023-04-11] MEDS ORDERED: SODIUM CHLORIDE 0.9% 1,000 ML IV ONE (22:53)
[2023-04-11] MEDS ORDERED: AZITHROMYCIN 500 MG in SODIUM CHLORIDE 0.9% 250 ML IVPB SCH (23:45)
[2023-04-11 23:51] LABS: Glucose,Whole Blood 84 mg/dL (70-110)
[2023-04-12] MEDS ORDERED: AZITHROMYCIN 500 MG in SODIUM CHLORIDE 0.9% 250 ML IVPB SCH ×2
--- NOTE | 2023-04-12 00:23 | XR ---
EXAM: XR Chest, 1 View CLINICAL HISTORY: ITS.REASON XR Reason: possible aspiration TECHNIQUE: Frontal view of the chest. COMPARISON: March 31, 2023 FINDINGS: Lungs: Consolidation in the RIGHT lower lung field, consistent with pneumonia. Follow-up CXR recommended to document resolution. This is new when compared to March 31, 2023. Pleural space: Unremarkable. No pneumothorax. Heart: Unremarkable. No cardiomegaly. Mediastinum: Unremarkable. Bones/joints: Unremarkable. IMPRESSION: New consolidation in the RIGHT lower lung field, consistent with pneumonia. Follow-up CXR recommended to document resolution.
[2023-04-12] MEDS ORDERED: SODIUM CHLORIDE 0.9% 1,000 ML IV ONE ×2 (01:13→06:40)
--- NOTE | 2023-04-12 01:58 | P.CNPUL ---
History of Present Illness Consult date: 04/12/23 Requesting physician: Meseret Haq Reason for consult: other (ICU management) Chief complaint: Weakness, falls, abdominal pain, nausea and vomiting History of present illness: I am seeing this patient in consultation today 04/12/2023 in the intensive care unit. She was found to have small bowel obstruction and was anemic while on the general medical floor. Patient is a 67-year-old white female with past medical history significant for colon cancer status post right hemicolectomy, short gut syndrome, COPD, current and ongoing tobacco dependence, CVA/TIA, hypertension, hyperlipidemia, chronic anemia, fibromyalgia, multiple sclerosis. Patient is currently confused, she is only oriented to self and place. This HPI is taken mostly from chart review. She is an unreliable historian. Apparently, the patient came to the emergency room 2 days ago with the chief complaint of generalized weakness and falls at home. Patient was noted to have some abdominal pain accompanied with nausea and vomiting. Follow-up abdominal CT showed findings consistent with small bowel obstruction with transition point and upper central pelvis near the previous anastomosis site. Likely related adhesions. There was also moderate to severe colonic stool burn. A moderately distended urinary bladder with bilateral hydroureter nephrosis. There was also patchy groundglass and consolidative opacities within the left lower lobe, right middle lobe, and right lower lobe consistent with atypical pneumonia. A surgical consult was placed, and the patient is reportedly to undergo exploratory laparotomy later this morning. Earlier yesterday morning, she was found to have a hemoglobin of 5.1. No active bleeding was actually noted. After transfusion 2 units PRBCs the patient's hemoglobin level came up to 12.6. In the meantime, the patient was transferred to the intensive care unit. Patient is currently lying in bed, on room air, in no acute distress. Patient denies any pulmonary complaints. No reported episodes of aspiration. She does have some abdominal tenderness which is nonfocal over the entire abdomen. Abdomen is firm and distended. Hemodynamically, the patient is slightly hypotensive. She is receiving normal saline fluid bolus currently. No vasopressors at this time. Patient did have a right femoral central line placed by Dr. Guadarrama yesterday evening. Most recent CBC from 2100 yesterday shows a WBC count of 10.7, hemoglobin 12.6, hematocrit 36, platelets 159. CMP from yesterd ay shows sodium 133, potassium 2.5, chloride 89, serum bicarb up to 20, BUN 85, creatinine 2.07, glucose 177. Patient's potassium is being replaced per protocol. Patient did have a indwelling urinary catheter placed for urinary retention, and is making good urine output. There is a component of anion gap metabolic acidosis, and was given 2 A of sodium bicarb. Patient was transferred to the intensive care unit for closer monitoring. I am told there is a tentative plan for expiratory laparotomy later this morning. Review of Systems REVIEW OF SYSTEMS: CONSTITUTIONAL: Denies any recent significant weight loss or weight gain. EYES: Denies change in vision. EARS, NOSE, MOUTH, THROAT: Denies headaches, denies sore throat. CARDIOVASCULAR: Denies chest pain, palpitations or syncopal episodes. RESPIRATORY: Denies shortness of breath, cough, congestion or hemoptysis. GASTROINTESTINAL: Admits abdominal pain accompanied with nausea and vomiting. Denies any bleeding or diarrhea. Emesis was described as brown. GENITOURINARY: Denies hematuria, denies infections. MUSKULOSKELETAL: Denies pain, denies swelling. INTEGUMENTARY: Denies rash, denies eczema. NEUROLOGICAL: Denies recent memory loss, no recent seizure activity. PSYCHIATRIC: Denies anxiety, denies depression. HEMATOLOGIC/LYMPHATIC: Denies anemia, denies enlarged lymph node Past Medical History Past Medical History: Cancer, COPD, CVA/TIA, Fibromyalgia, Hypertension Additional Past Medical History / Comment(s): TIA, right hand tendons severed and repaired, closed head injury, multiple sclerosis, short bowel syndrome, pancreatic insufficiency, bowel cancer History of Any Multi-Drug Resistant Organisms: C-DIFF Date of last positivie culture/infection: 2014 MDRO Source:: patient Past Surgical History: Back Surgery, Bowel Resection, Hysterectomy Additional Past Surgical History / Comment(s): stomach cancer, right hemicolectomy and small bowel resection. Back surgery by Past Anesthesia/Blood Transfusion Reactions: No Reported Reaction Additional Past Anesthesia/Blood Transfusion Reaction / Comment(s): States she thinks her father may have had some problems with anesthesia but is not sure what they were. Past Psychological History: Anxiety, Bipolar, Depression, PTSD Smoking Status: Current every day smoker Past Alcohol Use History: None Reported Additional Past Alcohol Use History / Comment(s): Patient is a smoker of 2-3 packs per day since she was 12 years of age and has recently cut back to 1 pack per week Past Drug Use History: None Reported - Past Family History Father Family Medical History: No Reported History Additional Family Medical History / Comment(s): . Mother Family Medical History: No Reported History Additional Family Medical History / Comment(s): . Sister(s) Family Medical History: No Reported History Additional Family Medical History / Comment(s): Patient has sisters all have female problems. She does state there is breast cancer history in her aunt. Son(s) Family Medical History: No Reported History Additional Family Medical History / Comment(s): . Brother(s) Family Medical History: Cancer Additional Family Medical History / Comment(s): esophageal cancer Medications and Allergies Home Medications Medication Instructions Recorded Confirmed Type Folic Acid 1 mg PO DAILY 05/24/17 04/10/23 History DULoxetine HCL [Cymbalta] 60 mg PO AC-BRKFST 05/17/21 04/10/23 History Gabapentin [Neurontin] 300 mg PO TID 05/17/21 04/10/23 History Lipase/Protease/Amylase [Zenpep Dr 1 cap PO PC-TID PRN 05/17/21 04/10/23 History 40,000 Unit Capsule] ALPRAZolam [Xanax] 0.25 mg PO BID PRN 08/24/22 04/10/23 History Acetaminophen with Codeine 1 - 2 tab PO Q8H PRN 08/24/22 04/10/23 History [Tylenol #4 Tablet] DULoxetine HCL [Cymbalta] 30 mg PO PC-LUNCH 08/24/22 04/10/23 History methocarbamoL [Robaxin] 500 mg PO TID PRN 08/24/22 04/10/23 History traZODone HCL 150 mg PO PC-LUNCH 08/24/22 04/10/23 History Cyanocobalamin [Vitamin B-12] 1,000 mcg PO DAILY #30 tablet 08/27/22 04/10/23 Rx Calcium Carbonate [Tums] 500 mg PO TID-W/MEALS 03/31/23 04/10/23 History Famotidine 20 mg PO BID 03/31/23 04/10/23 History Loperamide [Imodium] 2 mg PO TID PRN 03/31/23 04/10/23 History Magnesium Oxide [Mag-Ox] 400 mg PO BID 03/31/23 04/10/23 History Ondansetron Odt [Zofran Odt] 4 mg PO Q8HR PRN #20 tab 03/31/23 04/10/23 Rx Pantoprazole [Protonix] 40 mg PO DAILY 14 Days #14 tab 03/31/23 04/10/23 Rx QUEtiapine FUMARATE [SEROquel XR] 300 mg PO HS 03/31/23 04/10/23 History Sodium Bicarbonate Tab 650 mg PO BID 03/31/23 04/10/23 History Albuterol Nebulized [Ventolin 2.5 mg INHALATION RT-QID PRN 04/10/23 04/10/23 History Nebulized] Ergocalciferol (Vitamin D2) 1,250 mcg PO MO 04/10/23 04/10/23 History [Drisdol (50,000 Iu)] Allergies Allergy/AdvReac Type Severity Reaction Status Date / Time divalproex sodium Allergy Unknown Verified 04/10/23 13:53 [From Depakote] ketorolac [From Toradol] Allergy Unknown Verified 04/10/23 13:53 Penicillins Allergy Anaphylaxis Verified 04/10/23 13:53 shellfish derived [Shellfish] Allergy Rash/Hives Verified 04/10/23 13:53 strawberry Allergy Rash/Hives Verified 04/10/23 13:53 alcohol AdvReac Vomiting Verified 04/10/23 13:53 aspirin AdvReac Nausea & Verified 04/10/23 13:53 Vomiting erythromycin base AdvReac Dyspnea Verified 04/10/23 13:53 Sulfa (Sulfonamide AdvReac Dyspnea & Verified 04/10/23 13:53 Antibiotics) Nausea/Vomiting tramadol [From Ultram] AdvReac Nausea & Verified 04/10/23 13:53 Vomiting Dial Soap Allergy Unknown Rash/Hives, Uncoded 04/10/23 13:53 itching Physical Exam Vitals: Vital Signs Temp Pulse Pulse Resp BP Pulse Ox 04/12/23 00:00 98.3 F 13 94/72 98 04/11/23 23:30 78 13 93/62 97 04/11/23 23:00 82 22 87/53 98 04/11/23 22:30 79 19 85/58 97 04/11/23 22:00 79 15 88/51 98 04/11/23 21:30 79 16 92/55 98 04/11/23 21:00 81 18 99/55 97 04/11/23 20:30 80 16 100/64 76 L 04/11/23 20:00 98.3 F 78 20 102/62 95 04/11/23 19:30 77 13 105/70 89 L 04/11/23 19:00 81 13 113/73 93 L 04/11/23 18:30 78 14 117/76 94 L 04/11/23 18:00 75 15 122/78 99 04/11/23 17:30 98.4 F 79 12 112/72 97 04/11/23 17:00 84 10 L 125/87 96 04/11/23 16:38 98.4 F 83 10 L 125/87 94 L 04/11/23 16:30 83 12 107/64 94 L 04/11/23 16:18 98.2 F 81 11 L 107/64 96 04/11/23 16:04 79 10 L 101/60 96 04/11/23 16:03 99 F 86 16 101/64 94 L 04/11/23 16:00 99.2 F 80 8 L 105/76 95 04/11/23 15:45 81 17 101/69 95 04/11/23 15:30 99.2 F 78 12 101/69 96 04/11/23 13:05 97.0 F L 74 16 106/62 96 04/11/23 12:45 97.0 F L 79 16 105/68 97 04/11/23 12:33 97.0 F L 76 17 103/66 04/11/23 12:30 75 04/11/23 10:39 79 18 96 04/11/23 10:11 91 18 110/64 97 04/11/23 08:14 98.6 F 81 18 105/63 96 04/11/23 06:14 75 14 104/71 96 04/11/23 04:41 101 H 16 97/76 97 04/11/23 02:22 72 14 108/63 99 Intake and Output 04/11/23 04/11/23 04/12/23 14:59 22:59 06:59 Intake Total 0 995 150 Output Total 780 120 Balance 0 215 30 Intake: IV 375 150 Sodium Chloride 0.9% 1, 375 150 000 ml @ 75 mls/hr IV . [id number] [facility] Rx#:[id number] Blood Product 0 620 Rc As-1 Unit 310 [id number] Rc As-1 Unit 0 310 [id number] Output: Urine 780 120 Other: # Voids 110 Weight 40.37 kg ABP, PAP, CO, CI - Last 8 Hours Arterial Blood Pressure 118/58 Arterial Blood Pressure 115/57 GENERAL EXAM: Alert, 67-year-old white female, cachectic, comfortable in no apparent distress. HEAD: Normocephalic and atraumatic EYES: Normal reaction of pupils, equal size. NOSE: Clear with pink turbinates. THROAT: No erythema or exudates. NECK: No masses, no JVD. CHEST: No chest wall deformity. LUNGS: Equal air entry with no crackles, wheeze, rhonchi or dullness. On room air. No conversational dyspnea or accessory muscle use.. CVS: S1 and S2 normal with no audible murmur, regular rhythm. No extra heart sounds ABDOMEN: No hepatosplenomegaly, active bowel sounds, abdomen is firm, there is no abdominal tenderness and guarding. Old midline incisional scar. SPINE: No scoliosis or deformity SKIN: No rashes CENTRAL NERVOUS SYSTEM: No focal deficits, tone is normal in all 4 extremities. EXTREMITIES: There is no peripheral edema, clubbing, or cyanosis. Peripheral pulses are intact. Results - Laboratory Findings CBC and BMP: 04/11/23 21:00 04/11/23 13:10 Abnormal lab findings: Abnormal Labs 04/10/23 04/10/23 04/10/23 14:14 14:14 14:14 WBC 13.7 H RBC 2.24 L Hgb 7.7 L D Hct 23.7 L MCV 105.6 H Neutrophils # 12.9 H Lymphocytes # 0.4 L Macrocytosis Sodium 131 L Potassium Chloride 96 L Carbon Dioxide 10 L BUN 83 H Creatinine 3.06 H Glucose 107 H POC Glucose (mg/dL) Calcium 6.3 L* Phosphorus Magnesium 2.9 H AST 42 H Total Protein 6.2 L Albumin 3.4 L Urine Appearance Cloudy H Urine Protein 1+ H Urine Ketones Trace H Urine Blood Small H Urine RBC 9 H Urine WBC 6 H Calcium Oxalate Crystal Occasional H Amorphous Sediment Rare H Urine Bacteria Rare H Urine Mucus Rare H Crossmatch 04/11/23 04/11/23 04/11/23 08:33 11:08 11:12 WBC RBC 1.47 L Hgb 5.1 L* D Hct 16.2 L* MCV 109.8 H Neutrophils # Lymphocytes # 0.2 L Macrocytosis Marked A Sodium 123 L Potassium 2.1 L* Chloride 65 L* Carbon Dioxide 46 H* BUN 73 H Creatinine 1.33 H Glucose 1091 H* POC Glucose (mg/dL) Calcium 4.1 L* Phosphorus Magnesium AST Total Protein 3.7 L Albumin 2.1 L Urine Appearance Urine Protein Urine Ketones Urine Blood Urine RBC Urine WBC Calcium Oxalate Crystal Amorphous Sediment Urine Bacteria Urine Mucus Crossmatch See Detail 04/11/23 04/11/23 04/11/23 12:57 13:06 13:10 WBC RBC Hgb Hct MCV Neutrophils # Lymphocytes # Macrocytosis Sodium 133 L Potassium 2.5 L* Chloride 89 L Carbon Dioxide 20 L BUN 85 H Creatinine 2.07 H Glucose 177 H POC Glucose (mg/dL) 290 H Calcium 6.8 L Phosphorus 4.8 H Magnesium 2.8 H AST 39 H Total Protein 6.1 L Albumin Urine Appearance Urine Protein Urine Ketones Urine Blood Urine RBC Urine WBC Calcium Oxalate Crystal Amorphous Sediment Urine Bacteria Urine Mucus Crossmatch 04/11/23 04/11/23 04/11/23 15:24 21:00 21:00 WBC 10.7 H RBC 3.77 L Hgb Hct MCV Neutrophils # Lymphocytes # Macrocytosis Sodium Potassium Chloride Carbon Dioxide BUN Creatinine Glucose POC Glucose (mg/dL) 173 H 112 H Calcium Phosphorus Magnesium AST Total Protein Albumin Urine Appearance Urine Protein Urine Ketones Urine Blood Urine RBC Urine WBC Calcium Oxalate Crystal Amorphous Sediment Urine Bacteria Urine Mucus Crossmatch - Diagnostic Findings Chest x-ray: image reviewed Assessment and Plan Assessment: Abdominal pain, secondary to suspected small bowel obstruction. Abdominal CT showed findings consistent with small bowel obstruction with transition point in the upper central pelvis near the previous anastomosis site. Likely related to adhesions. There was also moderate to severe colonic stool burn. I am told there is a tentative plan for expiratory laparotomy later this morning. Suspected community-acquired pneumonia, abdominal CT incidentally showed patchy groundglass opacities and consolidative opacities within the left lower lobe, right middle lobe and right lower lobe consistent with atypical pneumonia. Hypotension and sepsis, currently being fluid resuscitated, no vasopressors at this point. Suspected acute metabolic encephalopathy, possibly secondary to sepsis. Patient is also uremic. Severe anemia, status post transfusion 2 units PRBCs, no active bleeding was actually noted. Hemoglobin level increased over 7 g/dL with transfusion, likely the previous value was dilutional Metabolic anion gap acidosis, improving Acute on chronic kidney injury, There wass moderate urinary bladder distention with bilateral [place] ureternephrosis seen in abdominal CT. Severe hypokalemia, being replaced History of colon cancer, status post right hemicolectomy History of short gut syndrome Chronic anemia History of GI bleeding, patient metabolic encephalopathy CEPHALOPATHY have an EGD back in August, which showed mild diffuse gastritis and 2 superficial erosions in the distal esophagus consistent with reflux esophagitis. No active bleeding was noted at that time. Chronic obstructive pulmonary disease, appears stable History of CVA/TIA Hyperlipidemia History of fibromyalgia History of multiple sclerosis History of closed head injury Chronic ongoing tobacco dependence Plan: Patient's medications, labs and imaging were reviewed Patient was transferred to the intensive care unit for possible GI bleed and severe anemia. Patient is status post transfusion 2 units PRBCs, and the patient's hemoglobin level increased 7 g/dL with transfusion, likely previous value was dilutional Monitor for bleeding. I an told the patient is tentatively scheduled for exploratory laparotomy in the morning. Currently nothing by mouth Blood pressure is currently hypotensive, and she is being fluid resuscitated with her second liter of normal saline bolus No vasopressors required at this time. Dr. Guadarrama did insert a right femoral central line catheter earlier yesterday A follow-up chest x-ray was ordered and reviewed, the patient does have a new right lower lung field consolidation consistent with pneumonia Patient was placed on empiric antibiotics The urinary catheter was placed for urinary retention Hypokalemia is being replaced per protocol, and a recheck potassium levels pending Overall prognosis is guarded related to above-mentioned comorbidities Patient is a DO NOT RESUSCITATE We will continue to follow, and further recommendations are forthcoming. Patient will remain in the intensive care unit for now. I have personally seen and examined the patient, performed the documentation and the assessment and plan as written. Number of minutes spent on the visit:20 Time with Patient: Greater than 30
[2023-04-12] MEDS ORDERED: NOREPINEPHRINE 4 MG in SODIUM CHLORIDE 0.9% 250 ML IV SCH (02:15)
[2023-04-12 03:56] LABS: Basophils % (A) 0 %; Eosinophils % (A) 0 %; HCT 31.1 % (34.0-46.0); HGB 10.2 gm/dL (11.4-16.0); Lymphocytes # (A) 0.5 k/uL (1.0-4.8); Lymphocytes % (A) 5 %; MCH 32.3 pg (25.0-35.0); MCHC 32.8 g/dL (31.0-37.0); MCV 98.3 fL (80.0-100.0); Mean Platelet Volume 7.4; Monocytes # (A) 0.3 k/uL (0-1.0); Monocytes % (A) 3 %; Neutrophils # (A) 8.1 k/uL (1.3-7.7); Neutrophils % (A) 90 %; Platelet Count 189 k/uL (150-450); RBC 3.16 m/uL (3.80-5.40); RDW 14.8 % (11.5-15.5)
[2023-04-12 04:15] LABS: % Iron Saturation 15.57 (12.00-45.00)
[2023-04-12] MEDS: POTASSIUM CHLORIDE 20 MEQ in WATER FOR INJECTION 1 100ML.BAG IVPB SCH ×3 (04:43→09:48)
[2023-04-12] MEDS ORDERED: LIDOCAINE 2% (PF) 20 MG/ML 5 ML VIAL ONE (04:59)
[2023-04-12 05:00] LABS: Glucose,Whole Blood 137 mg/dL (70-110)
[2023-04-12] MEDS ORDERED: ROCURONIUM 10 MG/ML (5 ML VIAL) IV ONE (06:31)
[2023-04-12] MEDS ORDERED: SUCCINYLCHOLINE CHLORIDE 200 MG/10 ML VIAL IV ONE (06:31)
[2023-04-12] MEDS ORDERED: MIDAZOLAM 2 MG/2 ML VIAL ONE (06:31)
[2023-04-12] MEDS ORDERED: KETAMINE HCL IN 0.9 % NACL 50 MG/5 ML SYRINGE ONE (06:31)
[2023-04-12 07:19] LABS: African American GFR (CKD) 45 (>60 ml/min/1.73 sqM); Anion Gap 13 mmol/L; Blood Urea Nitrogen 61 mg/dL (7-17); Carbon Dioxide 22 mmol/L (22-30); Chloride 103 mmol/L (98-107); Glucose 107 mg/dL (74-99); Magnesium 1.9 mg/dL (1.6-2.3); Non-African American GFR(CKD) 39 (>60 ml/min/1.73 sqM); Potassium 2.9 mmol/L (3.5-5.1); Sodium 138 mmol/L (137-145)
--- NOTE | 2023-04-12 07:46 | P.OP ---
Date of Procedure: 04/12/23 Preoperative Diagnosis: Small bowel obstruction Postoperative Diagnosis: Small bowel obstruction secondary to frozen abdomen with dense peritoneal adhesions throughout Procedure(s) Performed: Lysis of adhesions Anesthesia: SARAH Surgeon: Kuldeep Marks Estimated Blood Loss (ml): 50 Pathology: none sent Condition: stable Disposition: PACU Description of Procedure: The patient's placed on the operative table in the supine position. She received general endotracheal tube anesthesia. Her abdomen was prepped and draped in sterile fashion. The abdomen was entered through midline incision. There were several adhesions to the anterior abdominal wall. These were lysed with sharp dissection. The stomach was grossly dilated. A nasogastric tube was placed. Approximately 1.5 L of fluid was removed from the nasogastric tube. There were dense adhesions throughout the abdomen. There were significant adhesions in the lower quadrants. The adhesions were hard. The patient had a frozen abdomen. At this point several of the small bowel loops in the upper abdomen were lysed. A small enterotomy was repaired with 3-0 GI silk suture. It was decided to stop the procedure due to the frozen abdomen. The abdomen was then irrigated. The fascia was then closed in looped #1 PDS sutures. Skin was closed seven. I contacted the patient's son, Vipul Bowden by telephone to describe the operative findings. The patient's son said he will come up later this morning. The patient's son sounded like he was considering comfort care. The patient was sent back to the ICU intubated in critical condition.
[2023-04-12 08:04] LABS: Glucose,Whole Blood 125 mg/dL (70-110)
[2023-04-12] MEDS ORDERED: propofoL 100 ML IV ONE (08:04)
[2023-04-12] MEDS ORDERED: PANTOPRAZOLE 40 MG/10 ML VIAL IVP SCH (09:00)
[2023-04-12] MEDS ORDERED: FAMOTIDINE 20 MG TAB PO SCH (09:00)
[2023-04-12] MEDS: GABAPENTIN 100 MG CAP PO SCH (09:19)
[2023-04-12] MEDS: QUEtiapine 25 MG TAB PO SCH (09:19)
[2023-04-12] MEDS: FOLIC ACID 1 MG TAB PO SCH (09:19)
[2023-04-12] MEDS: DULoxetine HCL 60 MG CAPSULE.DR PO SCH (09:19)
[2023-04-12] MEDS: CYANOCOBALAMIN 500 MCG TAB PO SCH (09:19)
[2023-04-12] MEDS: DULoxetine HCL 30 MG CAPSULE.DR PO SCH (09:20)
[2023-04-12] MEDS: SODIUM CHLORIDE 0.9% 1,000 ML IV SCH (09:45)
[2023-04-12] MEDS: HYDROmorphone 1 MG/ML 1 ML SYRINGE IVP PRN ×2 (09:49→15:15)
[2023-04-12] MEDS ORDERED: MORPHINE SULFATE 4 MG/ML SYRINGE IV PRN (10:41)
[2023-04-12] MEDS ORDERED: SCOPOLAMINE 1 MG/72 HR PATCH TRANSDERM SCH (11:00)
--- NOTE | 2023-04-12 12:46 | P.GSCN ---
History of Present Illness Consult date: 04/12/23 Reason for Consult: Hydronephrosis Requesting physician: Daniel Guadarrama History of present illness: The patient is a 67-year-old white female with multiple medical problems, including short bowel syndrome. She is currently admitted with complaints of abdominal pain, nausea, vomiting, and weakness. CT scan has shown evidence of bilateral hydronephrosis, as well as apparent bladder distention. Bladder scan was checked, and a Lawson catheter was placed due to incomplete bladder emptying. The catheter is currently draining clear yellow urine. The patient underwent exploratory laparotomy earlier this morning and was found to have dense adhesions. Her status has been changed to comfort care. Past Medical History Past Medical History: Cancer, COPD, CVA/TIA, Fibromyalgia, Hypertension Additional Past Medical History / Comment(s): TIA, right hand tendons severed and repaired, closed head injury, multiple sclerosis, short bowel syndrome, pancreatic insufficiency, bowel cancer History of Any Multi-Drug Resistant Organisms: C-DIFF Year Discovered:: 2014 MDRO Source:: patient Past Surgical History: Back Surgery, Bowel Resection, Hysterectomy Additional Past Surgical History / Comment(s): stomach cancer, right hemicole ctomy and small bowel resection. Back surgery by Past Anesthesia/Blood Transfusion Reactions: No Reported Reaction Additional Past Anesthesia/Blood Transfusion Reaction / Comm: States she thinks her father may have had some problems with anesthesia but is not sure what they were. Past Psychological History: Anxiety, Bipolar, Depression, PTSD Smoking Status: Current every day smoker Past Alcohol Use History: None Reported Additional Past Alcohol Use History / Comment(s): Patient is a smoker of 2-3 packs per day since she was 12 years of age and has recently cut back to 1 pack per week Past Drug Use History: None Reported - Past Family History Father Family Medical History: No Reported History Additional Family Medical History / Comment(s): . Mother Family Medical History: No Reported History Additional Family Medical History / Comment(s): . Sister(s) Family Medical History: No Reported History Additional Family Medical History / Comment(s): Patient has sisters all have female problems. She does state there is breast cancer history in her aunt. Son(s) Family Medical History: No Reported History Additional Family Medical History / Comment(s): . Brother(s) Family Medical History: Cancer Additional Family Medical History / Comment(s): esophageal cancer Medications and Allergies Home Medications Medication Instructions Recorded Confirmed Type Folic Acid 1 mg PO DAILY 05/24/17 04/10/23 History DULoxetine HCL [Cymbalta] 60 mg PO AC-BRKFST 05/17/21 04/10/23 History Gabapentin [Neurontin] 300 mg PO TID 05/17/21 04/10/23 History Lipase/Protease/Amylase [Zenpep Dr 1 cap PO PC-TID PRN 05/17/21 04/10/23 History 40,000 Unit Capsule] ALPRAZolam [Xanax] 0.25 mg PO BID PRN 08/24/22 04/10/23 History Acetaminophen with Codeine 1 - 2 tab PO Q8H PRN 08/24/22 04/10/23 History [Tylenol #4 Tablet] DULoxetine HCL [Cymbalta] 30 mg PO PC-LUNCH 08/24/22 04/10/23 History methocarbamoL [Robaxin] 500 mg PO TID PRN 08/24/22 04/10/23 History traZODone HCL 150 mg PO PC-LUNCH 08/24/22 04/10/23 History Cyanocobalamin [Vitamin B-12] 1,000 mcg PO DAILY #30 tablet 08/27/22 04/10/23 Rx Calcium Carbonate [Tums] 500 mg PO TID-W/MEALS 03/31/23 04/10/23 History Famotidine 20 mg PO BID 03/31/23 04/10/23 History Loperamide [Imodium] 2 mg PO TID PRN 03/31/23 04/10/23 History Magnesium Oxide [Mag-Ox] 400 mg PO BID 03/31/23 04/10/23 History Ondansetron Odt [Zofran Odt] 4 mg PO Q8HR PRN #20 tab 03/31/23 04/10/23 Rx Pantoprazole [Protonix] 40 mg PO DAILY 14 Days #14 tab 03/31/23 04/10/23 Rx QUEtiapine FUMARATE [SEROquel XR] 300 mg PO HS 03/31/23 04/10/23 History Sodium Bicarbonate Tab 650 mg PO BID 03/31/23 04/10/23 History Albuterol Nebulized [Ventolin 2.5 mg INHALATION RT-QID PRN 04/10/23 04/10/23 History Nebulized] Ergocalciferol (Vitamin D2) 1,250 mcg PO MO 04/10/23 04/10/23 History [Drisdol (50,000 Iu)] Allergies Allergy/AdvReac Type Severity Reaction Status Date / Time divalproex sodium Allergy Unknown Verified 04/10/23 13:53 [From Depakote] ketorolac [From Toradol] Allergy Unknown Verified 04/10/23 13:53 Penicillins Allergy Anaphylaxis Verified 04/10/23 13:53 shellfish derived [Shellfish] Allergy Rash/Hives Verified 04/10/23 13:53 strawberry Allergy Rash/Hives Verified 04/10/23 13:53 alcohol AdvReac Vomiting Verified 04/10/23 13:53 aspirin AdvReac Nausea & Verified 04/10/23 13:53 Vomiting erythromycin base AdvReac Dyspnea Verified 04/10/23 13:53 Sulfa (Sulfonamide AdvReac Dyspnea & Verified 04/10/23 13:53 Antibiotics) Nausea/Vomiting tramadol [From Ultram] AdvReac Nausea & Verified 04/10/23 13:53 Vomiting Dial Soap Allergy Unknown Rash/Hives, Uncoded 04/10/23 13:53 itching Surgical - Exam Vital Signs Temp Pulse Resp BP Pulse Ox 97.7 F 76 18 110/68 93 L 04/10/23 13:44 04/10/23 13:44 04/10/23 13:44 04/10/23 13:44 04/10/23 13:44 - General Patient is currently lying supine in her hospital bed, mechanically ventilated. The Lawson catheter is draining clear yellow urine. Results - Labs 04/12/23 03:09 04/12/23 03:09 Abnormal Lab Results - Last 24 Hours (Table) 04/10/23 04/11/23 04/11/23 Range/Units 14:14 08:33 11:08 WBC (3.8-10.6) k/uL RBC 1.47 L (3.80-5.40) m/uL Hgb 5.1 L* D (11.4-16.0) gm/dL Hct 16.2 L* (34.0-46.0) % MCV 109.8 H (80.0-100.0) fL Neutrophils # (1.3-7.7) k/uL Lymphocytes # 0.2 L (1.0-4.8) k/uL Macrocytosis Marked A Sodium (137-145) mmol/L Potassium (3.5-5.1) mmol/L Chloride (98-107) mmol/L Carbon Dioxide (22-30) mmol/L BUN (7-17) mg/dL Creatinine (0.52-1.04) mg/dL Glucose (74-99) mg/dL POC Glucose (mg/dL) (70-110) mg/dL Calcium (8.4-10.2) mg/dL Phosphorus (2.5-4.5) mg/dL Magnesium (1.6-2.3) mg/dL Iron 26 L (50-170) UG/DL TIBC 167 L (228-460) UG/DL Transferrin 119.0 L (204.0-354.0) mg/dL Ferritin 584.0 H (10.0-291.0) ng/mL AST (14-36) U/L Total Protein (6.3-8.2) g/dL Albumin (3.5-5.0) g/dL Vitamin B12 1641.0 H (200.0-944.0) pg/mL Crossmatch See Detail 04/11/23 04/11/23 04/11/23 Range/Units 11:12 12:57 13:06 WBC (3.8-10.6) k/uL RBC (3.80-5.40) m/uL Hgb (11.4-16.0) gm/dL Hct (34.0-46.0) % MCV (80.0-100.0) fL Neutrophils # (1.3-7.7) k/uL Lymphocytes # (1.0-4.8) k/uL Macrocytosis Sodium 123 L (137-145) mmol/L Potassium 2.1 L* (3.5-5.1) mmol/L Chloride 65 L* (98-107) mmol/L Carbon Dioxide 46 H* (22-30) mmol/L BUN 73 H (7-17) mg/dL Creatinine 1.33 H (0.52-1.04) mg/dL Glucose 1091 H* (74-99) mg/dL POC Glucose (mg/dL) 290 H (70-110) mg/dL Calcium 4.1 L* (8.4-10.2) mg/dL Phosphorus (2.5-4.5) mg/dL Magnesium 2.8 H (1.6-2.3) mg/dL Iron (50-170) UG/DL TIBC (228-460) UG/DL Transferrin (204.0-354.0) mg/dL Ferritin (10.0-291.0) ng/mL AST (14-36) U/L Total Protein 3.7 L (6.3-8.2) g/dL Albumin 2.1 L (3.5-5.0) g/dL Vitamin B12 (200.0-944.0) pg/mL Crossmatch 04/11/23 04/11/23 04/11/23 Range/Units 13:10 15:24 21:00 WBC 10.7 H (3.8-10.6) k/uL RBC 3.77 L (3.80-5.40) m/uL Hgb (11.4-16.0) gm/dL Hct (34.0-46.0) % MCV (80.0-100.0) fL Neutrophils # (1.3-7.7) k/uL Lymphocytes # (1.0-4.8) k/uL Macrocytosis Sodium 133 L (137-145) mmol/L Potassium 2.5 L* (3.5-5.1) mmol/L Chloride 89 L (98-107) mmol/L Carbon Dioxide 20 L (22-30) mmol/L BUN 85 H (7-17) mg/dL Creatinine 2.07 H (0.52-1.04) mg/dL Glucose 177 H (74-99) mg/dL POC Glucose (mg/dL) 173 H (70-110) mg/dL Calcium 6.8 L (8.4-10.2) mg/dL Phosphorus 4.8 H (2.5-4.5) mg/dL Magnesium (1.6-2.3) mg/dL Iron (50-170) UG/DL TIBC (228-460) UG/DL Transferrin (204.0-354.0) mg/dL Ferritin (10.0-291.0) ng/mL AST 39 H (14-36) U/L Total Protein 6.1 L (6.3-8.2) g/dL Albumin (3.5-5.0) g/dL Vitamin B12 (200.0-944.0) pg/mL Crossmatch 04/11/23 04/12/23 04/12/23 Range/Units 21:00 03:09 03:09 WBC (3.8-10.6) k/uL RBC 3.16 L (3.80-5.40) m/uL Hgb 10.2 L (11.4-16.0) gm/dL Hct 31.1 L (34.0-46.0) % MCV (80.0-100.0) fL Neutrophils # 8.1 H (1.3-7.7) k/uL Lymphocytes # 0.5 L (1.0-4.8) k/uL Macrocytosis Sodium (137-145) mmol/L Potassium 2.9 L (3.5-5.1) mmol/L Chloride (98-107) mmol/L Carbon Dioxide (22-30) mmol/L BUN (7-17) mg/dL Creatinine (0.52-1.04) mg/dL Glucose (74-99) mg/dL POC Glucose (mg/dL) 112 H (70-110) mg/dL Calcium (8.4-10.2) mg/dL Phosphorus (2.5-4.5) mg/dL Magnesium (1.6-2.3) mg/dL Iron (50-170) UG/DL TIBC (228-460) UG/DL Transferrin (204.0-354.0) mg/dL Ferritin (10.0-291.0) ng/mL AST (14-36) U/L Total Protein (6.3-8.2) g/dL Albumin (3.5-5.0) g/dL Vitamin B12 (200.0-944.0) pg/mL Crossmatch 04/12/23 Range/Units 04:59 WBC (3.8-10.6) k/uL RBC (3.80-5.40) m/uL Hgb (11.4-16.0) gm/dL Hct (34.0-46.0) % MCV (80.0-100.0) fL Neutrophils # (1.3-7.7) k/uL Lymphocytes # (1.0-4.8) k/uL Macrocytosis Sodium (137-145) mmol/L Potassium (3.5-5.1) mmol/L Chloride (98-107) mmol/L Carbon Dioxide (22-30) mmol/L BUN (7-17) mg/dL Creatinine (0.52-1.04) mg/dL Glucose (74-99) mg/dL POC Glucose (mg/dL) 137 H (70-110) mg/dL Calcium (8.4-10.2) mg/dL Phosphorus (2.5-4.5) mg/dL Magnesium (1.6-2.3) mg/dL Iron (50-170) UG/DL TIBC (228-460) UG/DL Transferrin (204.0-354.0) mg/dL Ferritin (10.0-291.0) ng/mL AST (14-36) U/L Total Protein (6.3-8.2) g/dL Albumin (3.5-5.0) g/dL Vitamin B12 (200.0-944.0) pg/mL Crossmatch Diabetes panel 04/11/23 04/11/23 04/12/23 Range/Units 11:12 13:10 03:09 Sodium 123 L 133 L (137-145) mmol/L Potassium 2.1 L* 2.5 L* 2.9 L (3.5-5.1) mmol/L Chloride 65 L* 89 L (98-107) mmol/L Carbon Dioxide 46 H* 20 L (22-30) mmol/L BUN 73 H 85 H (7-17) mg/dL Creatinine 1.33 H 2.07 H (0.52-1.04) mg/dL Glucose 1091 H* 177 H (74-99) mg/dL Calcium 4.1 L* 6.8 L (8.4-10.2) mg/dL AST 26 39 H (14-36) U/L ALT 12 17 (4-34) U/L Alkaline Phosphatase 59 104 (38-126) U/L Total Protein 3.7 L 6.1 L (6.3-8.2) g/dL Albumin 2.1 L 3.5 (3.5-5.0) g/dL Calcium panel 04/11/23 04/11/23 Range/Units 11:12 13:10 Calcium 4.1 L* 6.8 L (8.4-10.2) mg/dL Phosphorus 4.8 H (2.5-4.5) mg/dL Albumin 2.1 L 3.5 (3.5-5.0) g/dL Pituitary panel 04/11/23 04/11/23 04/12/23 Range/Units 11:12 13:10 03:09 Sodium 123 L 133 L (137-145) mmol/L Potassium 2.1 L* 2.5 L* 2.9 L (3.5-5.1) mmol/L Chloride 65 L* 89 L (98-107) mmol/L Carbon Dioxide 46 H* 20 L (22-30) mmol/L BUN 73 H 85 H (7-17) mg/dL Creatinine 1.33 H 2.07 H (0.52-1.04) mg/dL Glucose 1091 H* 177 H (74-99) mg/dL Calcium 4.1 L* 6.8 L (8.4-10.2) mg/dL Adrenal panel 04/11/23 04/11/23 04/12/23 Range/Units 11:12 13:10 03:09 Sodium 123 L 133 L (137-145) mmol/L Potassium 2.1 L* 2.5 L* 2.9 L (3.5-5.1) mmol/L Chloride 65 L* 89 L (98-107) mmol/L Carbon Dioxide 46 H* 20 L (22-30) mmol/L BUN 73 H 85 H (7-17) mg/dL Creatinine 1.33 H 2.07 H (0.52-1.04) mg/dL Glucose 1091 H* 177 H (74-99) mg/dL Calcium 4.1 L* 6.8 L (8.4-10.2) mg/dL Total Bilirubin 0.5 0.6 (0.2-1.3) mg/dL AST 26 39 H (14-36) U/L ALT 12 17 (4-34) U/L Alkaline Phosphatase 59 104 (38-126) U/L Total Protein 3.7 L 6.1 L (6.3-8.2) g/dL Albumin 2.1 L 3.5 (3.5-5.0) g/dL - Imaging CT scan - abdomen: report reviewed, image reviewed Assessment and Plan Plan: It is my impression that the patient's hydronephrosis is due to incomplete bladder emptying. Given her overall condition, I will recommend no further evaluation. The Lawson catheter may remain in place.
[2023-04-12 13:26] VITALS: BMI 18.8
--- NOTE | 2023-04-12 13:48 | CDI ---
Documentation Clarification Form Date: 04/12/2023 01:16:32 PM From: Radha Vásquez RN CCDS Phone: [phone] Admit Date: 04/10/2023 03:25:00 PM Patient Name: Tegan Lopez Visit Number: [id number] Discharge Date: ATTENTION: The Clinical Documentation Specialists (CDI) and [facility] Coding Staff appreciate your assistance in clarifying documentation. Please respond to the clarification below the line at the bottom and electronically sign. The CDI & [facility] Coding staff will review the response and follow-up if needed. Please note: Queries are made part of the Legal Health Record. If you have any questions, please contact the author of this message via ITS. Dr. Meseret Haq The patient has sepsis documented 04/10 in ED note and 04/12 Pulmonology note. Based on this information and the findings below, is there an additional diagnosis that is clinically appropriate for this patient? History/Risk Factors: 67 year old female presents to the ED for weakness and falls. Medical History: MS, red cell aplasia with chronic anemia, MS, HTN, Short bowel syndrome, gastric small bowel cancer and CVA.04/11, GI consult. Clinical Indicators: No H&P. Labs, 04/10: Wbc 13.7; Hgb 7.7; Neutrophils 12.9; NA 131; Chl 96; Carbon dioxide 10; BUN 83; Cr 3.06; Calcium 6.3 Vitals signs: 04/10 13:44 Temp 97.7 F Oral; 04/10 15:18 B/P 91/60 HR 83 RR 18 SpO2 98% room air CT of the ABD, 04/11: findings most consistent with small bowel obstruction with transition point in the upper central pelvis near anastomotic site. Likely related to adhesions. Procedure, 04/12: Lysis of adhesions Postoperative diagnosis Small bowel obstruction secondary to frozen abdomen with dense peritoneal adhesions throughout. Treatment: 04/10 Calcium Gluconate / Sodium Chl IVPB x 1; 04/10 04/11 Dextrose/Water with Sodium Bicarbonate IV , 04/11 Desmopressin Acetate IVPB x 1; 04/11 Potassium Chloride IVPB x 3 Sodium Bicarbonate IV x 2; 04/11 0.9NS IV ; 04/12 Azithromycin IVPB x 1; 04/12 Ceftriaxone IVPB x 1 04/12 Norepinephrine Bitartrate IV 04/12 Propofol IV; ID Consult: Antibiotics: IV Bolus: 04/10 0.9NS 1L IV bolus, 04/11 0.9NS IVPB bolus x 1; 04/12 0.9NS IVPB x2 Is there an additional diagnosis that is clinically appropriate for this patient? [ ] Sepsis [ x ] Sepsis with septic shock [ ] Sepsis, developed during stay, not present on admission [ ] Septic Shock [ ] Other, please specify [ ] Unable to determine SIRS Criteria: 2 or more of the following may indicate SIRS Temperature < 96.8F (36C) or > 101.0F (38.3C) Heart Rate > 90 bpm Respiratory Rate > 20 breaths/min or PaCO2 < 32 mmHg White Blood Cell Count > 12,000 or < 4,000 cells/mm3 or > 10% bands (Template Last Reviewed: June 2022) MTDD
--- NOTE | 2023-04-12 13:57 | CDI ---
Documentation Clarification Form Date: 04/12/2023 01:49:13 PM From: Radha Vásquez Phone: [phone] Admit Date: 04/10/2023 03:25:00 PM Patient Name: Tegan Lopez Visit Number: [id number] Discharge Date: ATTENTION: The Clinical Documentation Specialists (CDI) and [facility] Coding Staff appreciate your assistance in clarifying documentation. Please respond to the clarification below the line at the bottom and electronically sign. The CDI & [facility] Coding staff will review the response and follow-up if needed. Please note: Queries are made part of the Legal Health Record. If you have any questions, please contact the author of this message via ITS. Dr. Meseret Cooper Coccyx DTI is documented 04/12 in the Pressure Injury Assessment, by Nursing. Based on this information and the findings below, is there an additional diagnosis that is clinically appropriate for this patient? History/Risk Factors: 67 year old female presents to the ED for weakness and falls. Medical History: MS, red cell aplasia with chronic anemia, MS, HTN, Short bowel syndrome, gastric small bowel cancer and CVA.04/11, GI consult. Clinical Indicators: No H&P Location: Coccyx Wound description: [place] wound moist, Drainage description amount none, Blue/Black DTI around coccyx Treatment: Turn patient 2QH, Specialty Bed, Check Hourly, Pillow elevating arms and legs and Absorbant underpad, Is there an additional diagnosis that is clinically appropriate for this patient? [ x ] Coccyx Deep tissue injury [ ] Other condition, please specify [ ] Unable to determine Clinical Definitions: Stage 1 Pressure Ulcer: intact skin, non-blanching redness of local area Stage 2 Pressure Ulcer: Partial thickness, loss of dermis, pink wound bed Stage 3 Pressure Ulcer: Full thickness tissue loss Stage 4 Pressure Ulcer: Full thickness tissue loss with exposed bone, tendon, or muscle. Unstageable pressure ulcer: Full thickness tissue loss in which the base of the ulcer is covered by slough (yellow, rust, giles, green or brown) and/or eschar (rust, brown or black) in the wound bed. (Template Last Revised: August 2020) MTDD
--- NOTE | 2023-04-12 13:58 | P.PN ---
Progress Note - Text Progress Note Date: 04/12/23 Patient went to surgery this morning and was found to have a small bowel obstruction secondary to frozen abdomen with dense peritoneal adhesions throughout. Patient's family was contacted and patient was made no code, and comfort care. Dr. Christopher Lopes I agree with the dictator's note, documented as a scribe by Kristin Cueto.
--- NOTE | 2023-04-12 14:23 | CDI ---
Documentation Clarification Form Date: 04/12/2023 02:03:17 PM From: Radha Vásquez RN CCDS Phone: [phone] Admit Date: 04/10/2023 03:25:00 PM Patient Name: Tegan Lopez Visit Number: [id number] Discharge Date: ATTENTION: The Clinical Documentation Specialists (CDI) and [facility] Coding Staff appreciate your assistance in clarifying documentation. Please respond to the clarification below the line at the bottom and electronically sign. The CDI & [facility] Coding staff will review the response and follow-up if needed. Please note: Queries are made part of the Legal Health Record. If you have any questions, please contact the author of this message via ITS. Dr. Meseret Haq Malnutrition is documented 04/11, Oncology consult. Based on this information and the findings below, is there an additional diagnosis that is clinically appropriate for this patient? History/Risk Factors: 67 year old female presents to the ED for weakness and falls. Medical History: MS, red cell aplasia with chronic anemia, MS, HTN, Short bowel syndrome, gastric small bowel cancer and CVA.04/11, GI consult. Clinical Indicators: No H&P. Oncology consult, 04/12: Patients anemia was felt to be due to malnutrition and absorption issues. Procedure, 04/12: Lysis of adhesions Postoperative diagnosis Small bowel obstruction secondary to frozen abdomen with dense peritoneal adhesions throughout. Hgb 04/10 7.7 dropped on 04/11 to 5.1 Current BMI:18.9 kg/m [Cite applicable ASPEN criteria listed below] RD Consult Assessment: BMI <19kg; Wgt 45.4kg; Hgt 5ft 1in; Calculated ideal body weight 47.627kg Usual Weight 39kg. Weight obtained from previous admission, August 2022. Duration 7months of weight fluctuations, like incorrect due to hospital bedscale. Nutrition Intake Poor; Percent consumed 0%, NPO x 2 days Underweight related to high caloric expenditure associated with catabolic illness. As evidenced by BMI <23kg. Treatment: Patient admitted to Comfort care no goal; diet as able for pleasure if appropriate, Registered dietitian evaluation above. Two units prbc Is there an additional diagnosis that is clinically appropriate for this patient? [ ] Mild Protein-Calorie Malnutrition [ ] Moderate Protein-Calorie Malnutrition [ x] Severe Protein-Calorie Malnutrition [ ] No additional diagnosis/Not clinically significant [ ] Other condition, please specify [ ] Unable to Determine Reference: Using the ASPEN Guidelines, Undernutrition (Malnutrition) is characterized by at least two of the following six findings. The severity can be determined based on the criteria listed below. Malnutrition Characteristics for Moderate and Severe Malnutrition Malnutrition Characteristics for Moderate and Severe Malnutrition Type of Malnutrition Acute Illness or Injury Chronic Illness Degree of Malnutrition Non-severe (moderate) Malnutrition Severe Malnutrition Non-severe (moderate) Malnutrition Severe Malnutrition Energy Intake <75% for >7 days = 50% for = 5 days <75% for = 1 month =75% for = 1 month Weight Loss 1-2% in one week, 5% in 1 month, 7.5% in 3 months 2% in one week, >5% in 1 month, >7.5% in 3 months 5% in one month, 7.5% in 3 months, 10% in 6 months, 20% in 1 year >5% in one month, >7.5% in 3 months, >10% in 6 months, >20% in 1 year Body Fat Wasting Mild Moderate Mild Severe Muscle Wasting Mild Moderate Mild Severe Presence of Edema Mild Moderate to Severe Mild Severe Senior Major Gifts Officer Strength Not applicable Measurably Reduced Not applicable Measurably Reduced Source: Pratima YoderV, Clark P, Nicolas G, et al. Consensus statement: Academy of Nutrition and Dietetics and [place] [employer] for Parenteral and Enteral Nutrition: characteristics recommended for the identification and documentation of adult malnutrition (undernutrition).WHITNEY Yoder Parenter Enteral Nutr. 2012;36(3):275-283. (Template Last Revised: December 2022) MTDD
--- NOTE | 2023-04-12 14:44 | P.HPIM ---
History of Present Illness H&P Date: 04/10/23 Chief Complaint: ALICIA on CKD3b HISTORY OF PRESENT ILLNESS: This is a 66-year-old female patient of mine with past medical historyof chronic pancreatitis, aplastic anemia, lupus anticoagulant, history of chronic kidney disease stage IIIA, GERD, diverticulitis, recurrent bowel obstruction, major depressive disorder, spondylosis of the lumbar spine, chronic pain in both lower extremities with painful nodules diagnosed with erythema nodosum, also history of recurrent small bowel obstruction post surgical intervention and lysis of adhesion, patient presented to the ER at [facility] with increase abdominal pain and generalized weakness few days ago and he was found to have ALICIA on CKD3a, and she was given IVF and she was sent home to follow up with me in the office, she was seen in my office and she was advised to have dulcolax suppository and if not betetr go back to the ER, she ended going back with increased abdominal pain , intractable nausea and vomiting with worsening kidney function and severe anemia, HGB is down to 7, she was started on IVF and in the form of bicarb drip by and she was started on Protonix 4 mg IVP and sfter IVF her HGB dropped to 5.1 , type and cross and transfuse 2 units of PRBCs were given and she was sent for ZCT scan of [facility] Abdomen and Pelvis without contrast that showed small bowel obstruction General surgery was consulted who recommended NGT and exploratory laparotomy with SABINO, patient was chnaged from Medical surgical to ICU bed called and he accepted patient REVIEW OF SYSTEMS: Constitutional: No documented fever, no chills, no night sweats. Positive for weight change. Positive for weakness, fatigue or lethargy. No daytime sleepiness. HEENT: No headache. No blurred vision or double vision, no loss of vision. No loss of Hearing, no ringing in the ears, positive for dizziness. No nasal drainage or congestion. No epistaxis. No sore throat. Lungs: No shortness of breath, occasional cough, no sputum production. No wheezing. Reports dyspnea with activity. Cardiovascular: No chest pain, no lower extremity edema. No palpitations. No paroxysmal nocturnal dyspnea. No orthopnea. No lightheadedness or dizziness. Reports syncopal episodes. Abdominal: Reports abdominal pain. Positive for nausea, vomiting. No bloody or tarry stools reports loss of appetite, weight loss, Genitourinary: No dysuria, increased frequency, urgency. No urinary retention. Musculoskeletal: No myalgias. positive for muscle weakness, Reports gait dys function, back pain. No neck pain. Reports lower leg pain. Integumentary: No wounds, positive for color change to lower extremities and warmth to touch positive for bruising. No change in hair or nails. Neurologic: No aphasia. No facial droop. No change in mentation. No head injury. No headache. No paralysis. No paresthesia. Psychiatric: Positive for depression. No anxiety. No mood swings. Endocrine: No abnormal blood sugars. No weight change. PAST MEDICAL HISTORY: Chronic kidney disease stage IIIa Aplastic anemia. Vitamin D deficiency. Chronic pancreatitis. Lupus anticoagulant. Erythema nodosum. Spondylosis of the lumbar spine. Peripheral neuropathy. Osteoporosis. GERD. Anxiety. Chronic pain syndrome. PAST SURGICAL HISTORY: Multiple small bowel obstruction with exploratory laparotomy and lysis of adhesion Bilateral great toes ingrown toenail 2019 . Neck surgery. . Right hemicolectomy with small bowel resection SOCIAL HISTORY: Patient smokes about half a pack every day since she was 11-year-old, she denies any alcohol ingestion, no drug abuse. FAMILY HISTORY: Father at age of 92 from congestive heart failure and diabetes, mother at age of 90 from diabetes and partial lobectomy, patient has one brother who is alive 6-year-old with throat cancer patient has one sister 69-year-old health issues does not know patient has a son who is 43-year-old and work as a an RN PHYSICAL EXAMINATION: General: 67-year-old female laying down on ER in acute distress HEENT: Head is atraumatic, normocephalic, pupils were equal round reactive to light and recommendation, extraocular muscle movement were intact, sclera nonicteric, conjunctivae were pale, mucous membranes of the mouth are somewhat dry. Neck: Supple, no JVP, normal carotid upstroke bilaterally, no lymphadenopathy. Chest: Decreased breath sounds at the bases, few rhonchi, no expiratory wheezes, no chest wall tenderness, no intercostal retractions. Heart: First heart sound is normal, second heart sounds normal there is systolic ejection murmur 2/6 located in the left sternal border. Abdomen: Soft, distended, moderate tenderness, high-pitched bowel sounds. Extremities: 1+ edema lower extremity , right lower extremity is with increased erythema and bruising from the leg all the way down to the feet dorsalis pedis +2 bilaterally, Neurologic examination: Patient is awake alert and oriented X3, cranial nerves II-12 appear grossly intact, muscle power were 5 out of 5 in upper extremities and 5 out of 5 in bilateral lower extremities, deep tendon reflexes normal bilaterally. ASSESSMENT AND PLAN: 1. Acute kidney injury on chronic kidney disease stage 3a with metabolic acidosis likely due to acute tubular necrosis. we will continue with bicarb drip at 100 ml/h. we will check US of the kidneys and we will repeat labs in AM, Nephrology consult appreciated 2. Acute on chronic anemia due to Aplastic anemia an anemia of chronic kidney disease. we will transfuse fo HGB less than 7, Hematology Consult 3. Chronic kidney disease stage IIIb. Avoid nephrotoxins, monitor the patient CMP, continue sodium bicarbonate drip 4. Small bowel obstruction. NPO, NGT and continuewith IVF and General surgery consuly for OR. 5. History of aplastic anemia seems to be stable at this time patient has been getting iron infusions as an outpatient along with vitamin B12 supplement. 6. GERD. Continue patient on Protonix 40 mg IV push every 24 hours. 7. 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 Stable. 8. 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 Continue curr ent pain management 9. Insomnia. Hold off Seroquel 10. vitamin D deficiency. hold off Vitamin D supplements 11. Major depressive disorder. Continue patient on Cymbalta 90 mg orally once every day. 12. DVT prophylaxis. Heparin 5000 units subcutaneously every 12 hours. 13. GI prophylaxis. Continue Protonix 40 mg po every 24 hours. 14. Admit to inpatient. Estimate a length of stay 2 midnights. 15. Patient is NO Code Past Medical History Past Medical History: Cancer, COPD, CVA/TIA, Fibromyalgia, Hypertension Additional Past Medical History / Comment(s): TIA, right hand tendons severed and repaired, closed head injury, multiple sclerosis, short bowel syndrome, pancreatic insufficiency, bowel cancer History of Any Multi-Drug Resistant Organisms: C-DIFF Date of last positivie culture/infection: 2014 MDRO Source:: patient Past Surgical History: Back Surgery Additional Past Surgical History / Comment(s): stomach cancer, right hemicolectomy and small bowel resection. Back surgery by Past Anesthesia/Blood Transfusion Reactions: No Reported Reaction Additional Past Anesthesia/Blood Transfusion Reaction / Comment(s): States she thinks her father may have had some problems with anesthesia but is not sure what they were. Past Psychological History: Anxiety, Bipolar, Depression, PTSD Smoking Status: Current every day smoker Past Alcohol Use History: None Reported Past Drug Use History: None Reported - Past Family History Father Family Medical History: No Reported History Additional Family Medical History / Comment(s): . Mother Family Medical History: No Reported History Additional Family Medical History / Comment(s): . Sister(s) Family Medical History: No Reported History Additional Family Medical History / Comment(s): Patient has sisters all have female problems. She does state there is breast cancer history in her aunt. Son(s) Family Medical History: No Reported History Additional Family Medical History / Comment(s): . Brother(s) Family Medical History: Cancer Additional Family Medical History / Comment(s): esophageal cancer Medications and Allergies Home Medications Medication Instructions Recorded Confirmed Type Folic Acid 1 mg PO DAILY 05/24/17 04/10/23 History DULoxetine HCL [Cymbalta] 60 mg PO AC-BRKFST 05/17/21 04/10/23 History Gabapentin [Neurontin] 300 mg PO TID 05/17/21 04/10/23 History Lipase/Protease/Amylase [Zenpep Dr 1 cap PO PC-TID PRN 05/17/21 04/10/23 History 40,000 Unit Capsule] ALPRAZolam [Xanax] 0.25 mg PO BID PRN 08/24/22 04/10/23 History Acetaminophen with Codeine 1 - 2 tab PO Q8H PRN 08/24/22 04/10/23 History [Tylenol #4 Tablet] DULoxetine HCL [Cymbalta] 30 mg PO PC-LUNCH 08/24/22 04/10/23 History methocarbamoL [Robaxin] 500 mg PO TID PRN 08/24/22 04/10/23 History traZODone HCL 150 mg PO PC-LUNCH 08/24/22 04/10/23 History Cyanocobalamin [Vitamin B-12] 1,000 mcg PO DAILY #30 tablet 08/27/22 04/10/23 Rx Calcium Carbonate [Tums] 500 mg PO TID-W/MEALS 03/31/23 04/10/23 History Famotidine 20 mg PO BID 03/31/23 04/10/23 History Loperamide [Imodium] 2 mg PO TID PRN 03/31/23 04/10/23 History Magnesium Oxide [Mag-Ox] 400 mg PO BID 03/31/23 04/10/23 History Ondansetron Odt [Zofran Odt] 4 mg PO Q8HR PRN #20 tab 03/31/23 04/10/23 Rx Pantoprazole [Protonix] 40 mg PO DAILY 14 Days #14 tab 03/31/23 04/10/23 Rx QUEtiapine FUMARATE [SEROquel XR] 300 mg PO HS 03/31/23 04/10/23 History Sodium Bicarbonate Tab 650 mg PO BID 03/31/23 04/10/23 History Albuterol Nebulized [Ventolin 2.5 mg INHALATION RT-QID PRN 04/10/23 04/10/23 History Nebulized] Ergocalciferol (Vitamin D2) 1,250 mcg PO MO 04/10/23 04/10/23 History [Drisdol (50,000 Iu)] Allergies Allergy/AdvReac Type Severity Reaction Status Date / Time divalproex sodium Allergy Unknown Verified 04/10/23 13:53 [From Depakote] ketorolac [From Toradol] Allergy Unknown Verified 04/10/23 13:53 Penicillins Allergy Anaphylaxis Verified 04/10/23 13:53 shellfish derived [Shellfish] Allergy Rash/Hives Verified 04/10/23 13:53 strawberry Allergy Rash/Hives Verified 04/10/23 13:53 alcohol AdvReac Vomiting Verified 04/10/23 13:53 aspirin AdvReac Nausea & Verified 04/10/23 13:53 Vomiting erythromycin base AdvReac Dyspnea Verified 04/10/23 13:53 Sulfa (Sulfonamide AdvReac Dyspnea & Verified 04/10/23 13:53 Antibiotics) Nausea/Vomiting tramadol [From Ultram] AdvReac Nausea & Verified 04/10/23 13:53 Vomiting Dial Soap Allergy Unknown Rash/Hives, Uncoded 04/10/23 13:53 itching Physical Exam Vitals: Vital Signs Temp Pulse Resp BP Pulse Ox 04/10/23 15:18 83 18 91/60 98 04/10/23 13:44 97.7 F 76 18 110/68 93 L Intake and Output 04/10/23 04/10/23 04/10/23 06:59 14:59 22:59 Other: Weight 40.37 kg Results CBC & Chem 7: 04/12/23 03:09 04/12/23 03:09 Labs: Abnormal Lab Results - Last 24 Hours (Table) 04/10/23 04/10/23 04/10/23 Range/Units 14:14 14:14 14:14 WBC 13.7 H (3.8-10.6) k/uL RBC 2.24 L (3.80-5.40) m/uL Hgb 7.7 L D (11.4-16.0) gm/dL Hct 23.7 L (34.0-46.0) % MCV 105.6 H (80.0-100.0) fL Neutrophils # 12.9 H (1.3-7.7) k/uL Lymphocytes # 0.4 L (1.0-4.8) k/uL Sodium 131 L (137-145) mmol/L Chloride 96 L (98-107) mmol/L Carbon Dioxide 10 L (22-30) mmol/L BUN 83 H (7-17) mg/dL Creatinine 3.06 H (0.52-1.04) mg/dL Glucose 107 H (74-99) mg/dL Calcium 6.3 L* (8.4-10.2) mg/dL Magnesium 2.9 H (1.6-2.3) mg/dL AST 42 H (14-36) U/L Total Protein 6.2 L (6.3-8.2) g/dL Albumin 3.4 L (3.5-5.0) g/dL Urine Appearance Cloudy H (Clear) Urine Protein 1+ H (Negative) Urine Ketones Trace H (Negative) Urine Blood Small H (Negative) Urine RBC 9 H (0-5) /hpf Urine WBC 6 H (0-5) /hpf Calcium Oxalate Crystal Occasional H (None) /hpf Amorphous Sediment Rare H (None) /hpf Urine Bacteria Rare H (None) /hpf Urine Mucus Rare H (None) /hpf
--- NOTE | 2023-04-12 14:51 | P.PN ---
Subjective Progress Note Date: 04/12/23 CHIEF COMPLAINT: Small bowel obstruction HISTORY OF PRESENT ILLNESS: Patient is postop day #1 status post lysis of adhesions for small bowel obstruction secondary to frozen abdomen with dense peritoneal adhesions throughout. Surgery was stopped due to frozen abdomen. Patient is currently extubated in the ICU. She is going to be placed on comfort care and hospice. She is currently lying in bed comfortably. Family is at bedside. Afebrile. WBC 9.0 Hgb 10.2 platelets 189 sodium was 138 potassium is 2.9 creatinine 1.38 PHYSICAL EXAM: VITAL SIGNS: Reviewed. GENERAL: no acute distress. ABDOMEN: Soft. dressing clean, dry and intact NEUROLOGIC: Awake ASSESSMENT: 1. Small bowel obstruction secondary to frozen abdomen with dense peritoneal adhesions throughout PLAN: -Agree with proceeding with comfort care measures and hospice -Continue pain management Physician [employer] Project [employer] note has been reviewed by physician. Signing provider agrees with the documented findings, assessment, and plan of care. Objective - Vital Signs Vital signs: Vital Signs Temp 98 F 04/12/23 10:00 Pulse 61 04/12/23 10:30 Resp 20 04/12/23 11:56 BP 102/55 04/12/23 10:30 Pulse Ox 100 04/12/23 10:30 FiO2 100 04/12/23 11:02 Intake & Output 04/11/23 04/12/23 04/12/23 18:59 06:59 18:59 Intake Total 770 777.430 267.283 Output Total 600 830 135 Balance 170 -52.570 132.283 Weight 45.4 kg 45.4 kg Intake: IV 150 750 150 Sodium Chloride 0.9% 1, 150 750 150 000 ml @ 75 mls/hr IV . [id number] KATIE Rx#:[id number] Intake, IV Titration 27.430 117.283 Amount Norepinephrine 4 mg In 27.430 16.92 Sodium Chloride 0.9% 250 ml @ 0.03 MCG/KG/MIN 4. 614 mls/hr IV .Q24H KATIE Rx#:[id number] Potassium Chloride 20 meq 100 In Water For Injection 1 100ml.bag @ 50 mls/hr IVPB ONCE ONE Rx#: [id number] propofoL 1,000 mg In 0.363 Empty Bag 1 bag @ 15 MCG/ KG/MIN 4.086 mls/hr IV . Q24H KATIE Rx#:[id number] Blood Product 620 Rc As-1 Unit 310 [id number] Rc As-1 Unit 310 [id number] Output: Urine 600 730 135 Estimated Blood Loss 100 Other: # Voids 110 ABP, PAP, CO, CI - Last Documented Arterial Blood Pressure 101/42 - Labs CBC & Chem 7: 04/12/23 03:09 04/12/23 03:09 Labs: Abnormal Lab Results - Last 24 Hours (Table) 04/10/23 04/11/23 04/11/23 Range/Units 14:14 11:08 13:10 WBC (3.8-10.6) k/uL RBC (3.80-5.40) m/uL Hgb (11.4-16.0) gm/dL Hct (34.0-46.0) % Neutrophils # (1.3-7.7) k/uL Lymphocytes # (1.0-4.8) k/uL Sodium 133 L (137-145) mmol/L Potassium 2.5 L* (3.5-5.1) mmol/L Chloride 89 L (98-107) mmol/L Carbon Dioxide 20 L (22-30) mmol/L BUN 85 H (7-17) mg/dL Creatinine 2.07 H (0.52-1.04) mg/dL Glucose 177 H (74-99) mg/dL POC Glucose (mg/dL) (70-110) mg/dL Calcium 6.8 L (8.4-10.2) mg/dL Phosphorus 4.8 H (2.5-4.5) mg/dL Iron 26 L (50-170) UG/DL TIBC 167 L (228-460) UG/DL Transferrin 119.0 L (204.0-354.0) mg/dL Ferritin 584.0 H (10.0-291.0) ng/mL AST 39 H (14-36) U/L Total Protein 6.1 L (6.3-8.2) g/dL Vitamin B12 1641.0 H (200.0-944.0) pg/mL Crossmatch See Detail 04/11/23 04/11/23 04/11/23 Range/Units 15:24 21:00 21:00 WBC 10.7 H (3.8-10.6) k/uL RBC 3.77 L (3.80-5.40) m/uL Hgb (11.4-16.0) gm/dL Hct (34.0-46.0) % Neutrophils # (1.3-7.7) k/uL Lymphocytes # (1.0-4.8) k/uL Sodium (137-145) mmol/L Potassium (3.5-5.1) mmol/L Chloride (98-107) mmol/L Carbon Dioxide (22-30) mmol/L BUN (7-17) mg/dL Creatinine (0.52-1.04) mg/dL Glucose (74-99) mg/dL POC Glucose (mg/dL) 173 H 112 H (70-110) mg/dL Calcium (8.4-10.2) mg/dL Phosphorus (2.5-4.5) mg/dL Iron (50-170) UG/DL TIBC (228-460) UG/DL Transferrin (204.0-354.0) mg/dL Ferritin (10.0-291.0) ng/mL AST (14-36) U/L Total Protein (6.3-8.2) g/dL Vitamin B12 (200.0-944.0) pg/mL Crossmatch 04/12/23 04/12/23 04/12/23 Range/Units 03:09 03:09 03:09 WBC (3.8-10.6) k/uL RBC 3.16 L (3.80-5.40) m/uL Hgb 10.2 L (11.4-16.0) gm/dL Hct 31.1 L (34.0-46.0) % Neutrophils # 8.1 H (1.3-7.7) k/uL Lymphocytes # 0.5 L (1.0-4.8) k/uL Sodium (137-145) mmol/L Potassium 2.9 L 2.9 L (3.5-5.1) mmol/L Chloride (98-107) mmol/L Carbon Dioxide (22-30) mmol/L BUN 61 H (7-17) mg/dL Creatinine 1.38 H (0.52-1.04) mg/dL Glucose 107 H (74-99) mg/dL POC Glucose (mg/dL) (70-110) mg/dL Calcium 5.0 L* (8.4-10.2) mg/dL Phosphorus (2.5-4.5) mg/dL Iron (50-170) UG/DL TIBC (228-460) UG/DL Transferrin (204.0-354.0) mg/dL Ferritin (10.0-291.0) ng/mL AST (14-36) U/L Total Protein (6.3-8.2) g/dL Vitamin B12 (200.0-944.0) pg/mL Crossmatch 04/12/23 04/12/23 Range/Units 04:59 08:02 WBC (3.8-10.6) k/uL RBC (3.80-5.40) m/uL Hgb (11.4-16.0) gm/dL Hct (34.0-46.0) % Neutrophils # (1.3-7.7) k/uL Lymphocytes # (1.0-4.8) k/uL Sodium (137-145) mmol/L Potassium (3.5-5.1) mmol/L Chloride (98-107) mmol/L Carbon Dioxide (22-30) mmol/L BUN (7-17) mg/dL Creatinine (0.52-1.04) mg/dL Glucose (74-99) mg/dL POC Glucose (mg/dL) 137 H 125 H (70-110) mg/dL Calcium (8.4-10.2) mg/dL Phosphorus (2.5-4.5) mg/dL Iron (50-170) UG/DL TIBC (228-460) UG/DL Transferrin (204.0-354.0) mg/dL Ferritin (10.0-291.0) ng/mL AST (14-36) U/L Total Protein (6.3-8.2) g/dL Vitamin B12 (200.0-944.0) pg/mL Crossmatch
[2023-04-12] MEDS: MORPHINE SULFATE (100 MG/2 ML) 100 MG in SODIUM CHLORIDE 0.9% 100 ML IV SCH ×2 (15:25→20:46)
--- NOTE | 2023-04-12 15:29 | P.PN ---
Subjective Progress Note Date: 04/12/23 Principal diagnosis: Anemia, red cell aplasia Patient was intubated when seen today, nursing stated that the patient was going to be removed from ventilator support and transition to comfort/hospice. Objective - Vital Signs Vital signs: Vital Signs Temp 98 F 04/12/23 10:00 Pulse 61 04/12/23 10:30 Resp 14 04/12/23 10:30 BP 102/55 04/12/23 10:30 Pulse Ox 100 04/12/23 10:30 FiO2 100 04/12/23 11:02 Intake & Output 04/11/23 04/12/23 04/12/23 18:59 06:59 18:59 Intake Total 770 777.430 267.283 Output Total 600 830 135 Balance 170 -52.570 132.283 Weight 45.4 kg Intake: IV 150 750 150 Sodium Chloride 0.9% 1, 150 750 150 000 ml @ 75 mls/hr IV . [id number] KATIE Rx#:[id number] Intake, IV Titration 27.430 117.283 Amount Norepinephrine 4 mg In 27.430 16.92 Sodium Chloride 0.9% 250 ml @ 0.03 MCG/KG/MIN 4. 614 mls/hr IV .Q24H KATIE Rx#:[id number] Potassium Chloride 20 meq 100 In Water For Injection 1 100ml.bag @ 50 mls/hr IVPB ONCE ONE Rx#: [id number] propofoL 1,000 mg In 0.363 Empty Bag 1 bag @ 15 MCG/ KG/MIN 4.086 mls/hr IV . Q24H KATIE Rx#:[id number] Blood Product 620 Rc As-1 Unit 310 [id number] Rc As-1 Unit 310 [id number] Output: Urine 600 730 135 Estimated Blood Loss 100 Other: # Voids 110 ABP, PAP, CO, CI - Last Documented Arterial Blood Pressure 101/42 - Constitutional General appearance: Present: no acute distress, thin - Labs CBC & Chem 7: 04/12/23 03:09 04/12/23 03:09 Labs: Abnormal Lab Results - Last 24 Hours (Table) 04/10/23 04/11/23 04/11/23 Range/Units 14:14 08:33 11:08 WBC (3.8-10.6) k/uL RBC (3.80-5.40) m/uL Hgb (11.4-16.0) gm/dL Hct (34.0-46.0) % Neutrophils # (1.3-7.7) k/uL Lymphocytes # 0.2 L (1.0-4.8) k/uL Sodium (137-145) mmol/L Potassium (3.5-5.1) mmol/L Chloride (98-107) mmol/L Carbon Dioxide (22-30) mmol/L BUN (7-17) mg/dL Creatinine (0.52-1.04) mg/dL Glucose (74-99) mg/dL POC Glucose (mg/dL) (70-110) mg/dL Calcium (8.4-10.2) mg/dL Phosphorus (2.5-4.5) mg/dL Magnesium (1.6-2.3) mg/dL Iron 26 L (50-170) UG/DL TIBC 167 L (228-460) UG/DL Transferrin 119.0 L (204.0-354.0) mg/dL Ferritin 584.0 H (10.0-291.0) ng/mL AST (14-36) U/L Total Protein (6.3-8.2) g/dL Albumin (3.5-5.0) g/dL Vitamin B12 1641.0 H (200.0-944.0) pg/mL Crossmatch See Detail 04/11/23 04/11/23 04/11/23 Range/Units 11:12 12:57 13:06 WBC (3.8-10.6) k/uL RBC (3.80-5.40) m/uL Hgb (11.4-16.0) gm/dL Hct (34.0-46.0) % Neutrophils # (1.3-7.7) k/uL Lymphocytes # (1.0-4.8) k/uL Sodium 123 L (137-145) mmol/L Potassium 2.1 L* (3.5-5.1) mmol/L Chloride 65 L* (98-107) mmol/L Carbon Dioxide 46 H* (22-30) mmol/L BUN 73 H (7-17) mg/dL Creatinine 1.33 H (0.52-1.04) mg/dL Glucose 1091 H* (74-99) mg/dL POC Glucose (mg/dL) 290 H (70-110) mg/dL Calcium 4.1 L* (8.4-10.2) mg/dL Phosphorus (2.5-4.5) mg/dL Magnesium 2.8 H (1.6-2.3) mg/dL Iron (50-170) UG/DL TIBC (228-460) UG/DL Transferrin (204.0-354.0) mg/dL Ferritin (10.0-291.0) ng/mL AST (14-36) U/L Total Protein 3.7 L (6.3-8.2) g/dL Albumin 2.1 L (3.5-5.0) g/dL Vitamin B12 (200.0-944.0) pg/mL Crossmatch 04/11/23 04/11/23 04/11/23 Range/Units 13:10 15:24 21:00 WBC 10.7 H (3.8-10.6) k/uL RBC 3.77 L (3.80-5.40) m/uL Hgb (11.4-16.0) gm/dL Hct (34.0-46.0) % Neutrophils # (1.3-7.7) k/uL Lymphocytes # (1.0-4.8) k/uL Sodium 133 L (137-145) mmol/L Potassium 2.5 L* (3.5-5.1) mmol/L Chloride 89 L (98-107) mmol/L Carbon Dioxide 20 L (22-30) mmol/L BUN 85 H (7-17) mg/dL Creatinine 2.07 H (0.52-1.04) mg/dL Glucose 177 H (74-99) mg/dL POC Glucose (mg/dL) 173 H (70-110) mg/dL Calcium 6.8 L (8.4-10.2) mg/dL Phosphorus 4.8 H (2.5-4.5) mg/dL Magnesium (1.6-2.3) mg/dL Iron (50-170) UG/DL TIBC (228-460) UG/DL Transferrin (204.0-354.0) mg/dL Ferritin (10.0-291.0) ng/mL AST 39 H (14-36) U/L Total Protein 6.1 L (6.3-8.2) g/dL Albumin (3.5-5.0) g/dL Vitamin B12 (200.0-944.0) pg/mL Crossmatch 04/11/23 04/12/23 04/12/23 Range/Units 21:00 03:09 03:09 WBC (3.8-10.6) k/uL RBC 3.16 L (3.80-5.40) m/uL Hgb 10.2 L (11.4-16.0) gm/dL Hct 31.1 L (34.0-46.0) % Neutrophils # 8.1 H (1.3-7.7) k/uL Lymphocytes # 0.5 L (1.0-4.8) k/uL Sodium (137-145) mmol/L Potassium 2.9 L (3.5-5.1) mmol/L Chloride (98-107) mmol/L Carbon Dioxide (22-30) mmol/L BUN 61 H (7-17) mg/dL Creatinine 1.38 H (0.52-1.04) mg/dL Glucose 107 H (74-99) mg/dL POC Glucose (mg/dL) 112 H (70-110) mg/dL Calcium 5.0 L* (8.4-10.2) mg/dL Phosphorus (2.5-4.5) mg/dL Magnesium (1.6-2.3) mg/dL Iron (50-170) UG/DL TIBC (228-460) UG/DL Transferrin (204.0-354.0) mg/dL Ferritin (10.0-291.0) ng/mL AST (14-36) U/L Total Protein (6.3-8.2) g/dL Albumin (3.5-5.0) g/dL Vitamin B12 (200.0-944.0) pg/mL Crossmatch 04/12/23 04/12/23 04/12/23 Range/Units 03:09 04:59 08:02 WBC (3.8-10.6) k/uL RBC (3.80-5.40) m/uL Hgb (11.4-16.0) gm/dL Hct (34.0-46.0) % Neutrophils # (1.3-7.7) k/uL Lymphocytes # (1.0-4.8) k/uL Sodium (137-145) mmol/L Potassium 2.9 L (3.5-5.1) mmol/L Chloride (98-107) mmol/L Carbon Dioxide (22-30) mmol/L BUN (7-17) mg/dL Creatinine (0.52-1.04) mg/dL Glucose (74-99) mg/dL POC Glucose (mg/dL) 137 H 125 H (70-110) mg/dL Calcium (8.4-10.2) mg/dL Phosphorus (2.5-4.5) mg/dL Magnesium (1.6-2.3) mg/dL Iron (50-170) UG/DL TIBC (228-460) UG/DL Transferrin (204.0-354.0) mg/dL Ferritin (10.0-291.0) ng/mL AST (14-36) U/L Total Protein (6.3-8.2) g/dL Albumin (3.5-5.0) g/dL Vitamin B12 (200.0-944.0) pg/mL Crossmatch Assessment and Plan (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 Unfortunately she is not able to keep appts regularly. Last received a dose of retacrit 07/24/20 for hemoglobin of 9.8. -Iron studies and ferritin, consistent with anemia of inflammation, No supplemental iron at this time. Still pending B12, folic acid and copper levels. -Saturation is not adequate for SERA. Pt would need IV iron 1st. Will await Nephrology assessment and recommendations Possible small bowel obstruction, Hx of the same, multiple times. Patient was taken to surgery. Surgeon found those in bowel, distended stomach. Patient's family has opted for comfort care. Nursing states the patient will be removed from mechanical ventilation once the family is present. Attests: I have seen and examined pt, performed H&P, developed impression and plan of care. Discussed with dictator. Agree with documentation, dictated as a scribe.
--- NOTE | 2023-04-12 15:36 | P.PN ---
Subjective Progress Note Date: 04/11/23 HISTORY OF PRESENT ILLNESS: This is a 67-year-old female patient of mine with past medical history of chronic pancreatitis, aplastic anemia, lupus anticoagulant, history of chronic kidney disease stage IIIA, GERD, diverticulitis, recurrent bowel obstruction, major depressive disorder, spondylosis of the lumbar spine, chronic pain in both lower extremities with painful nodules diagnosed with erythema nodosum, also history of recurrent small bowel obstruction post surgical intervention and lysis of adhesion, patient presented to the ER at [facility] with increase abdominal pain and generalized weakness few days ago and he was found to have ALICIA on CKD3a, and she was given IVF and she was sent home to follow up with me in the office, she was seen in my office and she was advised to have dulcolax suppository and if not betetr go back to the ER, she ended going back with increased abdominal pain , intractable nausea and vomiting with worsening kidney function and severe anemia, HGB is down to 7, she was started on IVF and in the form of bicarb drip by and she was started on Protonix 4 mg IVP and sfter IVF her HGB dropped to 5.1 , type and cross and transfuse 2 units of PRBCs were given and she was sent for ZCT scan of [facility] Abdomen and Pelvis without contrast that showed small bowel obstruction General surgery was consulted who recommended NGT and exploratory laparotomy with SABINO, patient was chnaged from Medical surgical to ICU bed called and he accepted patient. 04/11: Patient is feeling worse today,continues to be nauseated and she is seen by General surgery and Nephrology and she will need to go to the ER she is receiving her blood transfusion and, she is heading to the ICU we will continue to replace her electrolytes, and we are awaiting surgical team for intervention with her potassium is better, patient is no code and her son did not ant her to be intubated and she is DNR REVIEW OF SYSTEMS: Constitutional: No documented fever, no chills, no night sweats. Positive for weight change. Positive for weakness, fatigue or lethargy. No daytime sleepiness. HEENT: No headache. No blurred vision or double vision, no loss of vision. No loss of Hearing, no ringing in the ears, positive for dizziness. No nasal drainage or congestion. No epistaxis. No sore throat. Lungs: No shortness of breath, occasional cough, no sputum production. No wheezing. Reports dyspnea with activity. Cardiovascular: No chest pain, no lower extremity edema. No palpitations. No paroxysmal nocturnal dyspnea. No orthopnea. No lightheadedness or dizziness. Reports syncopal episodes. Abdominal: Reports abdominal pain. Positive for nausea, vomiting. No bloody or tarry stools reports loss of appetite, weight loss, Genitourinary: No dysuria, increased frequency, urgency. No urinary retention. Musculoskeletal: No myalgias. positive for muscle weakness, Reports gait dysfunction, back pain. No neck pain. Reports lower leg pain. Integumentary: No wounds, positive for color change to lower extremities and warmth to touch positive for bruising. No change in hair or nails. Neurologic: No aphasia. No facial droop. No change in mentation. No head injury. No headache. No paralysis. No paresthesia. Psychiatric: Positive for depression. No anxiety. No mood swings. Endocrine: No abnormal blood sugars. No weight change. PHYSICAL EXAMINATION: General: 67-year-old female laying down on ER in acute distress HEENT: Head is atraumatic, normocephalic, pupils were equal round reactive to light and recommendation, extraocular muscle movement were intact, sclera n onicteric, conjunctivae were pale, mucous membranes of the mouth are somewhat dry. Neck: Supple, no JVP, normal carotid upstroke bilaterally, no lymphadenopathy. Chest: Decreased breath sounds at the bases, few rhonchi, no expiratory wheezes, no chest wall tenderness, no intercostal retractions. Heart: First heart sound is normal, second heart sounds normal there is systolic ejection murmur 2/6 located in the left sternal border. Abdomen: Soft, distended, moderate tenderness, high-pitched bowel sounds. Extremities: 1+ edema lower extremity , right lower extremity is with increased erythema and bruising from the leg all the way down to the feet dorsalis pedis +2 bilaterally, Neurologic examination: Patient is awake alert and oriented X3, cranial nerves II-12 appear grossly intact, muscle power were 5 out of 5 in upper extremities and 5 out of 5 in bilateral lower extremities, deep tendon reflexes normal bilaterally. ASSESSMENT AND PLAN: 1. Acute kidney injury on chronic kidney disease stage 3a with metabolic acidosis likely due to acute tubular necrosis. we will continue with bicarb drip at 100 ml/h. we will check US of the kidneys and we will repeat labs in AM, Nephrology consult appreciated 2. Acute on chronic anemia due to Aplastic anemia an anemia of chronic kidney disease. we will transfuse fo HGB less than 7, Hematology Consult 3. Chronic kidney disease stage IIIb. Avoid nephrotoxins, monitor the patient CMP, continue sodium bicarbonate drip 4. Small bowel obstruction. NPO, NGT and continue with IVF and General surgery consult for OR. 5. History of aplastic anemia seems to be stable at this time patient has been getting iron infusions as an outpatient along with vitamin B12 supplement. 6. GERD. Continue patient on Protonix 40 mg IV push every 24 hours. 7. 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 Stable. 8. 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 Continue current pain management 9. Insomnia. Hold off Seroquel 10. vitamin D deficiency. hold off Vitamin D supplements 11. Major depressive disorder. Continue patient on Cymbalta 90 mg orally once every day. 12. DVT prophylaxis. Heparin 5000 units subcutaneously every 12 hours. 13. GI prophylaxis. Continue Protonix 40 mg po every 24 hours. 14. NO Code Objective - Vital Signs Vital signs: Vital Signs Temp 98.6 F 04/11/23 08:14 Pulse 79 04/11/23 10:39 Resp 18 04/11/23 10:39 BP 110/64 04/11/23 10:11 Pulse Ox 96 04/11/23 10:39 FiO2 Intake & Output 04/10/23 04/11/23 04/11/23 18:59 06:59 18:59 Weight 40.37 kg - Labs CBC & Chem 7: 04/12/23 03:09 04/12/23 03:09 Labs: Abnormal Lab Results - Last 24 Hours (Table) 04/10/23 04/10/23 04/10/23 Range/Units 14:14 14:14 14:14 WBC 13.7 H (3.8-10.6) k/uL RBC 2.24 L (3.80-5.40) m/uL Hgb 7.7 L D (11.4-16.0) gm/dL Hct 23.7 L (34.0-46.0) % MCV 105.6 H (80.0-100.0) fL Neutrophils # 12.9 H (1.3-7.7) k/uL Lymphocytes # 0.4 L (1.0-4.8) k/uL Macrocytosis Sodium 131 L (137-145) mmol/L Potassium (3.5-5.1) mmol/L Chloride 96 L (98-107) mmol/L Carbon Dioxide 10 L (22-30) mmol/L BUN 83 H (7-17) mg/dL Creatinine 3.06 H (0.52-1.04) mg/dL Glucose 107 H (74-99) mg/dL Calcium 6.3 L* (8.4-10.2) mg/dL Magnesium 2.9 H (1.6-2.3) mg/dL AST 42 H (14-36) U/L Total Protein 6.2 L (6.3-8.2) g/dL Albumin 3.4 L (3.5-5.0) g/dL Urine Appearance Cloudy H (Clear) Urine Protein 1+ H (Negative) Urine Ketones Trace H (Negative) Urine Blood Small H (Negative) Urine RBC 9 H (0-5) /hpf Urine WBC 6 H (0-5) /hpf Calcium Oxalate Crystal Occasional H (None) /hpf Amorphous Sediment Rare H (None) /hpf Urine Bacteria Rare H (None) /hpf Urine Mucus Rare H (None) /hpf Crossmatch 04/11/23 04/11/23 04/11/23 Range/Units 08:33 11:08 11:12 WBC (3.8-10.6) k/uL RBC 1.47 L (3.80-5.40) m/uL Hgb 5.1 L* D (11.4-16.0) gm/dL Hct 16.2 L* (34.0-46.0) % MCV 109.8 H (80.0-100.0) fL Neutrophils # (1.3-7.7) k/uL Lymphocytes # (1.0-4.8) k/uL Macrocytosis Marked A Sodium 123 L (137-145) mmol/L Potassium 2.1 L* (3.5-5.1) mmol/L Chloride 65 L* (98-107) mmol/L Carbon Dioxide 46 H* (22-30) mmol/L BUN 73 H (7-17) mg/dL Creatinine 1.33 H (0.52-1.04) mg/dL Glucose 1091 H* (74-99) mg/dL Calcium 4.1 L* (8.4-10.2) mg/dL Magnesium (1.6-2.3) mg/dL AST (14-36) U/L Total Protein 3.7 L (6.3-8.2) g/dL Albumin 2.1 L (3.5-5.0) g/dL Urine Appearance (Clear) Urine Protein (Negative) Urine Ketones (Negative) Urine Blood (Negative) Urine RBC (0-5) /hpf Urine WBC (0-5) /hpf Calcium Oxalate Crystal (None) /hpf Amorphous Sediment (None) /hpf Urine Bacteria (None) /hpf Urine Mucus (None) /hpf Crossmatch See Detail
[2023-04-12 15:43] VITALS: TEMP 98.6
[2023-04-12] MEDS ORDERED: ONDANSETRON 4 MG/2 ML VIAL IVP PRN (16:33)
[2023-04-12] MEDS: LORazepam 2 MG/ML INJ IV PRN (16:52)
[2023-04-12 20:46] VITALS: BP 68/25
[2023-04-13] MEDS: MORPHINE SULFATE (100 MG/2 ML) 100 MG in SODIUM CHLORIDE 0.9% 100 ML IV SCH ×3 (01:08→10:01)
[2023-04-13 06:38] VITALS: PULSE 103
[2023-04-13] MEDS: SODIUM CHLORIDE 0.9% 1,000 ML IV SCH (06:49)
--- NOTE | 2023-04-13 07:28 | P.PN ---
Subjective Progress Note Date: 04/12/23 HISTORY OF PRESENT ILLNESS: This is a 67-year-old female patient of mine with past medical history of chronic pancreatitis, aplastic anemia, lupus anticoagulant, history of chronic kidney disease stage IIIA, GERD, diverticulitis, recurrent bowel obstruction, major depressive disorder, spondylosis of the lumbar spine, chronic pain in both lower extremities with painful nodules diagnosed with erythema nodosum, also history of recurrent small bowel obstruction post surgical intervention and lysis of adhesion, patient presented to the ER at [facility] with increase abdominal pain and generalized weakness few days ago and he was found to have ALICIA on CKD3a, and she was given IVF and she was sent home to follow up with me in the office, she was seen in my office and she was advised to have dulcolax suppository and if not betetr go back to the ER, she ended going back with increased abdominal pain , intractable nausea and vomiting with worsening kidney function and severe anemia, HGB is down to 7, she was started on IVF and in the form of bicarb drip by and she was started on Protonix 4 mg IVP and sfter IVF her HGB dropped to 5.1 , type and cross and transfuse 2 units of PRBCs were given and she was sent for ZCT scan of [facility] Abdomen and Pelvis without contrast that showed small bowel obstruction General surgery was consulted who recommended NGT and exploratory laparotomy with SABINO, patient was chnaged from Medical surgical to ICU bed called and he accepted patient. 04/11: Patient is feeling worse today,continues to be nauseated and she is seen by General surgery and Nephrology and she will need to go to the ER she is receiving her blood transfusion and, she is heading to the ICU we will continue to replace her electrolytes, and we are awaiting surgical team for intervention with her potassium is better, patient is no code and her son did not ant her to be intubated and she is DNR 04/12: Patient remains in the intensive care unit and underwent lysis of adhesions for small bowel obstruction secondary to frozen abdomen and dense peritoneal adhesions throughout with Dr. Marks. She retured to the ICU intubated and on mechanical ventilation and has susequently extubated. Blood pressure 102/55, heart rate in the 60s. Blood work today reveals WBC 9, hemoglobin 10.2, platelet count 189. Sodium 138, potassium 2.9 and replaced and repeated at 2.9. BUN 61 creatinine 1.38. Calcium 5. Magnesium 1.9. Per the patient's son's request, conservative management and comfort care to be initiated. Patient is currently on low dose Levo while waiting for additional family to arrive. She is restig in ICU bed and appears to be comfortable. Abdomen is much softer. Patient denies nausea. Family members are at bedside. REVIEW OF SYSTEMS: Constitutional: No documented fever, no chills, no night sweats. Positive for weight change. Positive for weakness, fatigue or lethargy. No daytime sleepiness. HEENT: No headache. No blurred vision or double vision, no loss of vision. No loss of Hearing, no ringing in the ears, positive for dizziness. No nasal drainage or congestion. No epistaxis. No sore throat. Lungs: No shortness of breath, occasional cough, no sputum production. No wheezing. Reports dyspnea with activity. Cardiovascular: No chest pain, no lower extremity edema. No palpitations. No paroxysmal nocturnal dyspnea. No orthopnea. No lightheadedness or dizziness. Reports syncopal episodes. Abdominal: Reports abdominal pain-improved. Positive for nausea, vomiting. No bloody or tarry stools reports loss of appetite, weight loss, Genitourinary: No dysuria, increased frequency, urgency. No urinary retention. Musculoskeletal: No myalgias. positive for muscle weakness, Reports gait dysfunction, back pain. No neck pain. Reports lower leg pain. Integumentary: No wounds, positive for color change to lower extremities and warmth to touch positive for bruising. No change in hair or nails. Neurologic: No aphasia. No facial droop. No change in mentation. No head injury. No headache. No paralysis. No paresthesia. Psychiatric: Positive for depression. No anxiety. No mood swings. Endocrine: No abnormal blood sugars. No weight change. PHYSICAL EXAMINATION: General: 67-year-old female resting in the ICU bed in no acute distr ess HEENT: Head is atraumatic, normocephalic, pupils were equal round reactive to light and recommendation, extraocular muscle movement were intact, sclera nonicteric, conjunctivae were pale, mucous membranes of the mouth are somewhat dry. Neck: Supple, no JVP, normal carotid upstroke bilaterally, no lymphadenopathy. Chest: Decreased breath sounds at the bases, few rhonchi, no expiratory wheezes, no chest wall tenderness, no intercostal retractions. Heart: First heart sound is normal, second heart sounds normal there is systolic ejection murmur 2/6 located in the left sternal border. Abdomen: Soft, minimal tenderness. Extremities: 1+ edema lower extremity , right lower extremity is with increased erythema and bruising from the leg all the way down to the feet dorsalis pedis +2 bilaterally, Neurologic examination: Patient is awake alert and oriented X3, cranial nerves II-12 appear grossly intact, muscle power were 5 out of 5 in upper extremities and 5 out of 5 in bilateral lower extremities, deep tendon reflexes normal bilaterally. ASSESSMENT AND PLAN: 1. Acute kidney injury on chronic kidney disease stage 3a with metabolic acidosis likely due to acute tubular necrosis. 2. Acute on chronic anemia due to Aplastic anemia an anemia of chronic kidney disease. 3. Chronic kidney disease stage IIIb. 4. Small bowel obstruction status post lysis of adhesion. 5. History of aplastic anemia seems to be stable at this time. 6. GERD. 7. 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 8. 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 9. Insomnia. 10. vitamin D deficiency. 11. Major depressive disorder. 12. NO Code Patient will be started on comfort care only and levo fed will be discontinued once additional family members arrive. No aggressive treatments, no blood work to be done at this point. Impression and plan of care have been directed as dictated by the signing physician. Annalisa Delcid nurse practitioner acting as scribe for signing physician. Objective - Vital Signs Vital signs: Vital Signs Temp 98 F 04/12/23 10:00 Pulse 61 04/12/23 10:30 Resp 14 04/12/23 10:30 BP 102/55 04/12/23 10:30 Pulse Ox 100 04/12/23 10:30 FiO2 100 04/12/23 11:02 Intake & Output 04/11/23 04/12/23 04/12/23 18:59 06:59 18:59 Intake Total 770 777.430 250 Output Total 600 830 135 Balance 170 -52.570 115 Weight 45.4 kg Intake: IV 150 750 150 Sodium Chloride 0.9% 1, 150 750 150 000 ml @ 75 mls/hr IV . [id number] KATIE Rx#:[id number] Intake, IV Titration 27.430 100 Amount Norepinephrine 4 mg In 27.430 Sodium Chloride 0.9% 250 ml @ 0.03 MCG/KG/MIN 4. 614 mls/hr IV .Q24H [facility] Rx#:[id number] Potassium Chloride 20 meq 100 In Water For Injection 1 100ml.bag @ 50 mls/hr IVPB ONCE ONE Rx#: [id number] Blood Product 620 Rc As-1 Unit 310 [id number] Rc As-1 Unit 310 [id number] Output: Urine 600 730 135 Estimated Blood Loss 100 Other: # Voids 110 ABP, PAP, CO, CI - Last Documented Arterial Blood Pressure 101/42 - Labs CBC & Chem 7: 04/12/23 03:09 04/12/23 03:09 Labs: Abnormal Lab Results - Last 24 Hours (Table) 04/10/23 04/11/23 04/11/23 Range/Units 14:14 08:33 11:08 WBC (3.8-10.6) k/uL RBC (3.80-5.40) m/uL Hgb (11.4-16.0) gm/dL Hct (34.0-46.0) % Neutrophils # (1.3-7.7) k/uL Lymphocytes # 0.2 L (1.0-4.8) k/uL Sodium (137-145) mmol/L Potassium (3.5-5.1) mmol/L Chloride (98-107) mmol/L Carbon Dioxide (22-30) mmol/L BUN (7-17) mg/dL Creatinine (0.52-1.04) mg/dL Glucose (74-99) mg/dL POC Glucose (mg/dL) (70-110) mg/dL Calcium (8.4-10.2) mg/dL Phosphorus (2.5-4.5) mg/dL Magnesium (1.6-2.3) mg/dL Iron 26 L (50-170) UG/DL TIBC 167 L (228-460) UG/DL Transferrin 119.0 L (204.0-354.0) mg/dL Ferritin 584.0 H (10.0-291.0) ng/mL AST (14-36) U/L Total Protein (6.3-8.2) g/dL Albumin (3.5-5.0) g/dL Vitamin B12 1641.0 H (200.0-944.0) pg/mL Crossmatch See Detail 04/11/23 04/11/23 04/11/23 Range/Units 11:12 12:57 13:06 WBC (3.8-10.6) k/uL RBC (3.80-5.40) m/uL Hgb (11.4-16.0) gm/dL Hct (34.0-46.0) % Neutrophils # (1.3-7.7) k/uL Lymphocytes # (1.0-4.8) k/uL Sodium 123 L (137-145) mmol/L Potassium 2.1 L* (3.5-5.1) mmol/L Chloride 65 L* (98-107) mmol/L Carbon Dioxide 46 H* (22-30) mmol/L BUN 73 H (7-17) mg/dL Creatinine 1.33 H (0.52-1.04) mg/dL Glucose 1091 H* (74-99) mg/dL POC Glucose (mg/dL) 290 H (70-110) mg/dL Calcium 4.1 L* (8.4-10.2) mg/dL Phosphorus (2.5-4.5) mg/dL Magnesium 2.8 H (1.6-2.3) mg/dL Iron (50-170) UG/DL TIBC (228-460) UG/DL Transferrin (204.0-354.0) mg/dL Ferritin (10.0-291.0) ng/mL AST (14-36) U/L Total Protein 3.7 L (6.3-8.2) g/dL Albumin 2.1 L (3.5-5.0) g/dL Vitamin B12 (200.0-944.0) pg/mL Crossmatch 04/11/23 04/11/23 04/11/23 Range/Units 13:10 15:24 21:00 WBC 10.7 H (3.8-10.6) k/uL RBC 3.77 L (3.80-5.40) m/uL Hgb (11.4-16.0) gm/dL Hct (34.0-46.0) % Neutrophils # (1.3-7.7) k/uL Lymphocytes # (1.0-4.8) k/uL Sodium 133 L (137-145) mmol/L Potassium 2.5 L* (3.5-5.1) mmol/L Chloride 89 L (98-107) mmol/L Carbon Dioxide 20 L (22-30) mmol/L BUN 85 H (7-17) mg/dL Creatinine 2.07 H (0.52-1.04) mg/dL Glucose 177 H (74-99) mg/dL POC Glucose (mg/dL) 173 H (70-110) mg/dL Calcium 6.8 L (8.4-10.2) mg/dL Phosphorus 4.8 H (2.5-4.5) mg/dL Magnesium (1.6-2.3) mg/dL Iron (50-170) UG/DL TIBC (228-460) UG/DL Transferrin (204.0-354.0) mg/dL Ferritin (10.0-291.0) ng/mL AST 39 H (14-36) U/L Total Protein 6.1 L (6.3-8.2) g/dL Albumin (3.5-5.0) g/dL Vitamin B12 (200.0-944.0) pg/mL Crossmatch 04/11/23 04/12/23 04/12/23 Range/Units 21:00 03:09 03:09 WBC (3.8-10.6) k/uL RBC 3.16 L (3.80-5.40) m/uL Hgb 10.2 L (11.4-16.0) gm/dL Hct 31.1 L (34.0-46.0) % Neutrophils # 8.1 H (1.3-7.7) k/uL Lymphocytes # 0.5 L (1.0-4.8) k/uL Sodium (137-145) mmol/L Potassium 2.9 L (3.5-5.1) mmol/L Chloride (98-107) mmol/L Carbon Dioxide (22-30) mmol/L BUN 61 H (7-17) mg/dL Creatinine 1.38 H (0.52-1.04) mg/dL Glucose 107 H (74-99) mg/dL POC Glucose (mg/dL) 112 H (70-110) mg/dL Calcium 5.0 L* (8.4-10.2) mg/dL Phosphorus (2.5-4.5) mg/dL Magnesium (1.6-2.3) mg/dL Iron (50-170) UG/DL TIBC (228-460) UG/DL Transferrin (204.0-354.0) mg/dL Ferritin (10.0-291.0) ng/mL AST (14-36) U/L Total Protein (6.3-8.2) g/dL Albumin (3.5-5.0) g/dL Vitamin B12 (200.0-944.0) pg/mL Crossmatch 04/12/23 04/12/23 04/12/23 Range/Units 03:09 04:59 08:02 WBC (3.8-10.6) k/uL RBC (3.80-5.40) m/uL Hgb (11.4-16.0) gm/dL Hct (34.0-46.0) % Neutrophils # (1.3-7.7) k/uL Lymphocytes # (1.0-4.8) k/uL Sodium (137-145) mmol/L Potassium 2.9 L (3.5-5.1) mmol/L Chloride (98-107) mmol/L Carbon Dioxide (22-30) mmol/L BUN (7-17) mg/dL Creatinine (0.52-1.04) mg/dL Glucose (74-99) mg/dL POC Glucose (mg/dL) 137 H 125 H (70-110) mg/dL Calcium (8.4-10.2) mg/dL Phosphorus (2.5-4.5) mg/dL Magnesium (1.6-2.3) mg/dL Iron (50-170) UG/DL TIBC (228-460) UG/DL Transferrin (204.0-354.0) mg/dL Ferritin (10.0-291.0) ng/mL AST (14-36) U/L Total Protein (6.3-8.2) g/dL Albumin (3.5-5.0) g/dL Vitamin B12 (200.0-944.0) pg/mL Crossmatch
[2023-04-13 08:39] VITALS: RESP 22
[2023-04-13] MEDS: LORazepam 2 MG/ML INJ IV PRN (09:35)
--- NOTE | 2023-04-13 13:35 | P.DS ---
Providers Date of admission: 04/10/23 15:25 Expected date of discharge: 04/13/23 Attending physician: Meseret Haq Consults: 04/10/23 15:23 Consult Physician Routine Consulting Provider: Keyshawn Vaz Consult Reason/Comments: adelia Do you want consulting provider notified?: Yes Consult Physician Routine Consulting Provider: Norman Lemos Consult Reason/Comments: anemia, hx of red cell aplasia Do you want consulting provider notified?: Yes 04/11/23 12:02 Consult Physician Routine Consulting Provider: Germania Lopes Consult Reason/Comments: anemia Do you want consulting provider notified?: Yes 04/11/23 13:05 Consult Physician Urgent Consulting Provider: Kuldeep Marks Consult Reason/Comments: SBO Do you want consulting provider notified?: Yes 04/11/23 15:34 Consult Physician Urgent Consulting Provider: Daniel Guadarrama Consult Reason/Comments: ICU management Do you want consulting provider notified?: Already Contacted 04/11/23 17:24 Consult Physician Routine Consulting Provider: Rick Gray Consult Reason/Comments: ross hydronephrosis Do you want consulting provider notified?: Yes Primary care physician: Meseret Haq [facility] Course: HISTORY OF PRESENT ILLNESS: This is a 67-year-old female patient of [facility] with past medical history of chronic pancreatitis, aplastic anemia, lupus anticoagulant, history of chronic kidney disease stage IIIA, GERD, diverticulitis, recurrent bowel obstruction, major depressive disorder, spondylosis of the lumbar spine, chronic pain in both lower extremities with painful nodules diagnosed with erythema nodosum, also history of recurrent small bowel obstruction post surgical intervention and lysis of adhesion, patient presented to the ER at [facility] with increase abdominal pain and generalized weakness few days ago and he was found to have ADELIA on CKD3a, and she was given IVF and she was sent home to follow up with me in the office, she was seen in my office and she was advised to have dulcolax suppository and if not betetr go back to the ER, she ended going back with increased abdominal pain , intractable nausea and vomiting with worsening kidney function and severe anemia, HGB is down to 7, she was started on IVF and in the form of bicarb drip by and she was started on Protonix 4 mg IVP and sfter IVF her HGB dropped to 5.1 , type and cross and transfuse 2 units of PRBCs were given and she was sent for [facility] Abdomen and Pelvis without contrast that showed small bowel obstruction General surgery was consulted who recommended NGT and exploratory laparotomy with SABINO, patient was chnaged from Medical surgical to ICU bed called and he accepted patient. 04/11: Patient is feeling worse today,continues to be nauseated and she is seen by General surgery and Nephrology and she will need to go to the ER she is receiving her blood transfusion and, she is heading to the ICU we will continue to replace her electrolytes, and we are awaiting surgical team for intervention with her potassium is better, patient is no code and her son did not ant her to be intubated and she is DNR 04/12: Patient remains in the intensive care unit and underwent lysis of adhesions for small bowel obstruction secondary to frozen abdomen and dense peritoneal adhesions throughout with Dr. Marks. She retured to the ICU intubated and on mechanical ventilation and has susequently extubated. Blood pressure 102/55, heart rate in the 60s. Blood work today reveals WBC 9, hemoglobin 10.2, platelet count 189. Sodium 138, potassium 2.9 and replaced and repeated at 2.9. BUN 61 creatinine 1.38. Calcium 5. Magnesium 1.9. Per the patient's son's request, conservative management and comfort care to be initiated. Patient is currently on low dose Levo while waiting for additional family to arrive. She is restig in ICU bed and appears to be comfortable. Abdomen is much softer. Patient denies nausea. Family members are at bedside. 04/13: Patient on 04/13. Please see nursing documentation for details. DISCHARGE DIAGNOSES: 1. Acute kidney injury on chronic kidney disease stage 3a with metabolic acidosis likely due to acute tubular necrosis. 2. Acute on chronic anemia due to Aplastic anemia an anemia of chronic kidney disease. 3. Sepsis with septic shock secondary to acute abdomen 4. Small bowel obstruction status post lysis of adhesion. 5. History of aplastic anemia seems to be stable at this time. 6. GERD. 7. 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 8. 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 9. Insomnia. 10. vitamin D deficiency. 11. Major depressive disorder. 12. Deep tissue injury coccyx, present on admission Impression and plan of care have been directed as dictated by the signing physician. Annalisa Delcid nurse practitioner acting as scribe for signing physician. Patient Condition at Discharge: Undetermined Plan - Discharge Summary Discharge Rx Participant: Yes New Discharge Prescriptions: No Action Folic Acid 1 mg PO DAILY methocarbamoL [Robaxin] 500 mg PO TID PRN PRN Reason: Muscle Spasm traZODone HCL 150 mg PO PC-LUNCH Cyanocobalamin [Vitamin B-12] 1,000 mcg PO DAILY #30 tablet Ondansetron Odt [Zofran Odt] 4 mg PO Q8HR PRN #20 tab PRN Reason: Nausea And Vomiting QUEtiapine FUMARATE [SEROquel XR] 300 mg PO HS Sodium Bicarbonate Tab 650 mg PO BID Albuterol Nebulized [Ventolin Nebulized] 2.5 mg INHALATION RT-QID PRN PRN Reason: Shortness Of Breath Gabapentin [Neurontin] 300 mg PO TID DULoxetine HCL [Cymbalta] 60 mg PO AC-BRKFST Lipase/Protease/Amylase [Zenpep Dr 40,000 Unit Capsule] 1 cap PO PC-TID PRN PRN Reason: meals-see below Acetaminophen with Codeine [Tylenol #4 Tablet] 1 - 2 tab PO Q8H PRN PRN Reason: chronic pain ALPRAZolam [Xanax] 0.25 mg PO BID PRN PRN Reason: Anxiety DULoxetine HCL [Cymbalta] 30 mg PO PC-LUNCH Pantoprazole [Protonix] 40 mg PO DAILY 14 Days #14 tab Calcium Carbonate [Tums] 500 mg PO TID-W/MEALS Famotidine 20 mg PO BID Loperamide [Imodium] 2 mg PO TID PRN PRN Reason: Diarrhea Magnesium Oxide [Mag-Ox] 400 mg PO BID Ergocalciferol (Vitamin D2) [Drisdol (50,000 Iu)] 1,250 mcg PO MO Discharge Medication List Folic Acid 1 mg PO DAILY 05/24/17 [History] DULoxetine HCL [Cymbalta] 60 mg PO AC-BRKFST 05/17/21 [History] Gabapentin [Neurontin] 300 mg PO TID 05/17/21 [History] Lipase/Protease/Amylase [Zenpep Dr 40,000 Unit Capsule] 1 cap PO PC-TID PRN 05/17/21 [History] ALPRAZolam [Xanax] 0.25 mg PO BID PRN 08/24/22 [History] Acetaminophen with Codeine [Tylenol #4 Tablet] 1 - 2 tab PO Q8H PRN 08/24/22 [History] DULoxetine HCL [Cymbalta] 30 mg PO PC-LUNCH 08/24/22 [History] methocarbamoL [Robaxin] 500 mg PO TID PRN 08/24/22 [History] traZODone HCL 150 mg PO PC-LUNCH 08/24/22 [History] Cyanocobalamin [Vitamin B-12] 1,000 mcg PO DAILY #30 tablet 08/27/22 [Rx] Calcium Carbonate [Tums] 500 mg PO TID-W/MEALS 03/31/23 [History] Famotidine 20 mg PO BID 03/31/23 [History] Loperamide [Imodium] 2 mg PO TID PRN 03/31/23 [History] Magnesium Oxide [Mag-Ox] 400 mg PO BID 03/31/23 [History] Ondansetron Odt [Zofran Odt] 4 mg PO Q8HR PRN #20 tab 03/31/23 [Rx] Pantoprazole [Protonix] 40 mg PO DAILY 14 Days #14 tab 03/31/23 [Rx] QUEtiapine FUMARATE [SEROquel XR] 300 mg PO HS 03/31/23 [History] Sodium Bicarbonate Tab 650 mg PO BID 03/31/23 [History] Albuterol Nebulized [Ventolin Nebulized] 2.5 mg INHALATION RT-QID PRN 04/10/23 [History] Ergocalciferol (Vitamin D2) [Drisdol (50,000 Iu)] 1,250 mcg PO MO 04/10/23 [History] Follow up Appointment(s)/Referral(s): Meseret Haq MD [Primary Care Provider] - 1-2 days Discharge Disposition: - Preliminary Cause of Preliminary Cause of : Sepsis with septic shock secondary to acute abdomen
== END 2023-04-13 13:10 | disposition expired | DRG 853 ==
LOC: EC 13:41 → 4SSUR 15:25 → 2SICU 04-11 13:52
PROVIDERS: ADMIT Internal Medicine; ATTEND Internal Medicine
PROC: 0D9670Z Drainage of Stomach with Drainage Device, Via Natural or Artificial Opening (ICD-10-PCS; 2023-04-10)
PROC: 03HY32Z Insertion of Monitoring Device into Upper Artery, Percutaneous Approach (ICD-10-PCS; 2023-04-11)
PROC: 4A133B1 Monitoring of Arterial Pressure, Peripheral, Percutaneous Approach (ICD-10-PCS; 2023-04-11)
PROC: 4A133J1 Monitoring of Arterial Pulse, Peripheral, Percutaneous Approach (ICD-10-PCS; 2023-04-11)
PROC: 02HV33Z Insertion of Infusion Device into Superior Vena Cava, Percutaneous Approach (ICD-10-PCS; 2023-04-11)
PROC: 30233N1 Transfusion of Nonautologous Red Blood Cells into Peripheral Vein, Percutaneous Approach (ICD-10-PCS; 2023-04-12)
PROC: 0DQ80ZZ Repair Small Intestine, Open Approach (ICD-10-PCS; 2023-04-12)
PROC: 3E043XZ Introduction of Vasopressor into Central Vein, Percutaneous Approach (ICD-10-PCS; 2023-04-12)
PROC: 0DN80ZZ Release Small Intestine, Open Approach (ICD-10-PCS; principal; 2023-04-12 05:59)
DX: A41.9 Sepsis, unspecified organism (principal); D60.9 Acquired pure red cell aplasia, unspecified; N17.0 Acute kidney failure with tubular necrosis; R65.21 Severe sepsis with septic shock; E43 Unspecified severe protein-calorie malnutrition; G93.41 Metabolic encephalopathy; J18.9 Pneumonia, unspecified organism; D61.9 Aplastic anemia, unspecified; K56.50 Intestinal adhesions [bands], unspecified as to partial versus complete obstruction; D68.62 Lupus anticoagulant syndrome; J44.0 Chronic obstructive pulmonary disease with (acute) lower respiratory infection; K86.1 Other chronic pancreatitis; E87.20 Acidosis, unspecified; E87.1 Hypo-osmolality and hyponatremia; D62 Acute posthemorrhagic anemia; N13.39 Other hydronephrosis; Z68.1 Body mass index [BMI] 19.9 or less, adult; K91.2 Postsurgical malabsorption, not elsewhere classified; N18.32 Chronic kidney disease, stage 3b; G35 Multiple sclerosis; Z66 Do not resuscitate; Z51.5 Encounter for palliative care; I12.9 Hypertensive chronic kidney disease with stage 1 through stage 4 chronic kidney disease, or unspecified chronic kidney disease; D63.1 Anemia in chronic kidney disease; F17.210 Nicotine dependence, cigarettes, uncomplicated; L52 Erythema nodosum; R62.7 Adult failure to thrive; F32.9 Major depressive disorder, single episode, unspecified; E86.0 Dehydration; K52.9 Noninfective gastroenteritis and colitis, unspecified; G47.00 Insomnia, unspecified; E55.9 Vitamin D deficiency, unspecified; M79.7 Fibromyalgia; S30.0XXA Contusion of lower back and pelvis, initial encounter; N32.89 Other specified disorders of bladder; R33.9 Retention of urine, unspecified; G62.9 Polyneuropathy, unspecified; M47.816 Spondylosis without myelopathy or radiculopathy, lumbar region; M81.0 Age-related osteoporosis without current pathological fracture; G89.4 Chronic pain syndrome; F41.9 Anxiety disorder, unspecified; E86.1 Hypovolemia; E78.5 Hyperlipidemia, unspecified; E87.6 Hypokalemia; D49.0 Neoplasm of unspecified behavior of digestive system; K21.00 Gastro-esophageal reflux disease with esophagitis, without bleeding; R29.6 Repeated falls; Z74.2 Need for assistance at home and no other household member able to render care; Z86.73 Personal history of transient ischemic attack (TIA), and cerebral infarction without residual deficits; Z87.820 Personal history of traumatic brain injury; Z85.068 Personal history of other malignant neoplasm of small intestine; Z86.19 Personal history of other infectious and parasitic diseases; Z85.028 Personal history of other malignant neoplasm of stomach; Z80.0 Family history of malignant neoplasm of digestive organs; Z79.891 Long term (current) use of opiate analgesic; Z90.49 Acquired absence of other specified parts of digestive tract; Z80.3 Family history of malignant neoplasm of breast; Z80.8 Family history of malignant neoplasm of other organs or systems; Z79.899 Other long term (current) drug therapy; Z79.51 Long term (current) use of inhaled steroids; Z88.0 Allergy status to penicillin; Z91.013 Allergy to seafood; Z91.018 Allergy to other foods; Z88.6 Allergy status to analgesic agent; Z88.1 Allergy status to other antibiotic agents; Z88.2 Allergy status to sulfonamides; Z88.5 Allergy status to narcotic agent; Z91.048 Other nonmedicinal substance allergy status; Z87.19 Personal history of other diseases of the digestive system
CPT/HCPCS: 36415; 70450; 71045; 72125; 72131; 74176; 76770; 80048; 80053; 81001; 82525; 82607; 82668; 82728; 82747; 83540; 83550; 83605; 83735; 84100; 84132; 85025; 85027; 85045; 86850; 86900; 86901; 86920; 93005; 94002; 96361; 96365; 96366; 96368; 96372; 96375; 99285